=== PATIENT | female | born 1975 | race Two or more races ===

== ENCOUNTER 2017-11-25 06:56 | Emergency (ER) | payer MEDICAID ==
[~2017-11-25] VITALS: Ht 154.9 cm; Wt 77.1 kg
[2017-11-25 07:45] VITALS: BP 133/71
[2017-11-25] MEDS ORDERED: KETOROLAC TROMETH 60MG/2ML VIAL IM ONE (08:30)
[2017-11-25] MEDS ORDERED: cefTRIAXone SOD 1,000 MG VL IM ONE (08:30)
== END 2017-11-25 09:04 | disposition home or self-care (01) ==
LOC: ER 06:56
DX: L03.317 Cellulitis of buttock (principal); E11.9 Type 2 diabetes mellitus without complications; F17.210 Nicotine dependence, cigarettes, uncomplicated; Z88.6 Allergy status to analgesic agent
CPT/HCPCS: 96372; 99284; J0696; J1885

== ENCOUNTER 2017-11-28 02:34 | Inpatient (IN) | payer MEDICAID ==
[~2017-11-28] VITALS: Ht 154.9 cm; Wt 74.0 kg
[2017-11-28] MEDS ORDERED: SODIUM CHLORIDE 0.9% 1,000 ML IV ONE ×2 (04:15→06:00)
[2017-11-28 04:41] LABS: Basophils # (auto) 0.1 uL; Eosinophils # (auto) 0.1 uL; Hematocrit 32.2 % (36.0-46.0); Hemoglobin 10.2 g/dL (12.2-16.2); Monocytes # (auto) 0.7 uL; Red Blood Cells 4.32 10^6/uL (4.0-5.20); White Blood Cell 9.2 10^3/uL (4.4-10.8)
[2017-11-28 04:42] LABS: Basophils % (auto) 1.4 % (0.0-2.0); Eosinophils % (auto) 1.3 % (0.0-7.0); Lymphocytes # (auto) 1.9 uL; Lymphocytes % (auto) 21.2 % (10.0-50.0); Mean Corpuscular Hemoglobin 23.7 pg (28.0-32.0); Mean Corpuscular Hgb Conc. 31.8 g/dL (32.0-36.0); Mean Corpuscular Volume 74.5 fL (80.0-100.0); Monocytes % (auto) 7.7 % (0.0-12.0); Neutrophils # (auto) 6.3 uL; Neutrophils % (auto) 68.4 % (37.0-80.0); Platelet Count (auto) 465 10^3/uL (140-450); Red Cell Distribution Width 17.7 % (11.8-14.3)
[2017-11-28 04:56] LABS: Albumin 3.1 g/dL (3.4-5.0); BUN/Creatinine Ratio 11.3; Calcium 8.6 mg/dL (8.5-10.1); Potassium 3.6 mmol/L (3.5-5.1)
[2017-11-28 04:58] LABS: Bilirubin, Total 0.3 mg/dL (0.2-1.0); Total Protein 8.2 g/dL (6.4-8.2)
[2017-11-28] MEDS ORDERED: cefTRIAXone SOD 1,000 MG VL ONE (05:52)
[2017-11-28] MEDS ORDERED: cefTRIAXone 1GM/10ml IVPUSH 10 ML IV ONE (06:00)
[2017-11-28] MEDS ORDERED: KETOROLAC TROMETH 30 MG/ML 1ML VIAL IV ONE (06:00)
[2017-11-28] MEDS ORDERED: ONDANSETRON HCL 4 MG/2 ML VIAL IV PRN (06:15)
[2017-11-28] MEDS ORDERED: TEMAZEPAM 15 MG CAP PO PRN (06:15)
[2017-11-28] MEDS ORDERED: ACETAMINOPHEN 325 MG TAB PO PRN (06:15)
[2017-11-28] MEDS ORDERED: DEXTROSE (50%) 50ML SYRG IV PRN (06:15)
[2017-11-28] MEDS: CLINDAMYCIN 600MG IV 50 ML IV SCH ×3 (07:20→21:53)
[2017-11-28] MEDS: SODIUM CHLORIDE 0.9% 1,000 ML IV SCH ×2 (07:29→21:46)
[2017-11-28 09:00] VITALS: BP 120/66
[2017-11-28] MEDS ORDERED: GLIP-116 PO (09:54)
[2017-11-28] MEDS ORDERED: METF-370 PO (09:54)
[2017-11-28] MEDS: FAMOTIDINE 20 MG TAB PO SCH ×2 (10:27→21:54)
[2017-11-28] MEDS: KETOROLAC TROMETH 30 MG/ML 1ML VIAL IV PRN (10:28)
[2017-11-28] MEDS: ACCU-CHEK COMFORT CURVE STRIP VI SCH ×2 (12:00→18:00)
[2017-11-28 12:48] VITALS: BP 113/71
[2017-11-28] MEDS: InsuLIN REG 1unit/0.01ml Soln (100units/ml) SC SCH ×2 (12:59→18:00)
[2017-11-28] MEDS: HYDROcodone-ACET 10/325MG TAB PO PRN ×2 (15:16→21:54)
[2017-11-28 17:00] VITALS: BP 120/68
[2017-11-28] MEDS: PIPERACILLIN-TAZOB 3.375GM 50 ML IV SCH (18:52)
[2017-11-28 22:00] VITALS: BP 112/67
[2017-11-29] MEDS: PIPERACILLIN-TAZOB 3.375GM 50 ML IV SCH ×4 (00:28→18:04)
[2017-11-29] MEDS: InsuLIN REG 1unit/0.01ml Soln (100units/ml) SC SCH ×4 (00:46→18:04)
[2017-11-29] MEDS: CLINDAMYCIN 600MG IV 50 ML IV SCH ×2 (05:25→14:23)
[2017-11-29 05:27] VITALS: BP 124/73
[2017-11-29] MEDS: HYDROcodone-ACET 10/325MG TAB PO PRN ×3 (05:30→16:11)
[2017-11-29] MEDS: ACCU-CHEK COMFORT CURVE STRIP VI SCH ×4 (05:38→18:05)
[2017-11-29 06:59] LABS: Basophils # (auto) 0.1 uL; Basophils % (auto) 1.2 % (0.0-2.0); Eosinophils # (auto) 0.2 uL; Eosinophils % (auto) 2.6 % (0.0-7.0); Hematocrit 26.7 % (36.0-46.0); Hemoglobin 8.6 g/dL (12.2-16.2); Lymphocytes # (auto) 1.8 uL; Lymphocytes % (auto) 29.2 % (10.0-50.0); Mean Corpuscular Hemoglobin 24.2 pg (28.0-32.0); Mean Corpuscular Hgb Conc. 32.1 g/dL (32.0-36.0); Mean Corpuscular Volume 75.4 fL (80.0-100.0); Monocytes # (auto) 0.5 uL; Monocytes % (auto) 7.6 % (0.0-12.0); Neutrophils # (auto) 3.8 uL; Neutrophils % (auto) 59.4 % (37.0-80.0); Nucleated Red Blood Cells % 0.1 %; Platelet Count (auto) 396 10^3/uL (140-450); Red Blood Cells 3.54 10^6/uL (4.0-5.20); Red Cell Distribution Width 17.9 % (11.8-14.3); White Blood Cell 6.3 10^3/uL (4.4-10.8)
[2017-11-29 07:16] LABS: Potassium 3.9 mmol/L (3.5-5.1)
[2017-11-29 07:23] LABS: Albumin 2.4 g/dL (3.4-5.0); BUN/Creatinine Ratio 24.4; Calcium 8.3 mg/dL (8.5-10.1)
[2017-11-29 07:26] LABS: Bilirubin, Total 0.2 mg/dL (0.2-1.0); Total Protein 6.7 g/dL (6.4-8.2)
[2017-11-29 09:00] VITALS: BP 111/66
[2017-11-29] MEDS ORDERED: cefTRIAXone 1GM/10ml IVPUSH 10 ML IV SCH (09:00)
[2017-11-29] MEDS: FAMOTIDINE 20 MG TAB PO SCH (09:41)
[2017-11-29] MEDS: SODIUM CHLORIDE 0.9% 1,000 ML IV SCH (09:42)
[2017-11-29] MEDS: KETOROLAC TROMETH 30 MG/ML 1ML VIAL IV PRN (12:35)
[2017-11-29 13:00] VITALS: BP 128/81
[2017-11-29 17:00] VITALS: BP 104/62
== END 2017-11-29 22:22 | disposition home or self-care (01) | DRG 383 ==
LOC: ER 02:36 → OVERFLOW 02:37 → WEST WING 08:22
PROVIDERS: ADMIT Nurse Practitioner; ATTEND Internal Medicine
DX: L02.31 Cutaneous abscess of buttock (principal); E11.65 Type 2 diabetes mellitus with hyperglycemia; L03.317 Cellulitis of buttock; F17.210 Nicotine dependence, cigarettes, uncomplicated; W57.XXXA Bitten or stung by nonvenomous insect and other nonvenomous arthropods, initial encounter; Z82.3 Family history of stroke; Z82.49 Family history of ischemic heart disease and other diseases of the circulatory system; Z83.3 Family history of diabetes mellitus; Z91.14 Patient's other noncompliance with medication regimen; Z88.5 Allergy status to narcotic agent; Z90.49 Acquired absence of other specified parts of digestive tract; Z80.9 Family history of malignant neoplasm, unspecified; Z72.89 Other problems related to lifestyle
CPT/HCPCS: 36415; 76856; 80053; 82962; 83036; 83605; 85025; 87077; 87186; 87205; 96361; 96374; 96375; J0696; J1815; J1885; J2543; J3490

== ENCOUNTER 2019-01-29 19:42 | Emergency (ER) | payer MEDICAID ==
[~2019-01-29] VITALS: Ht 154.9 cm; Wt 68.0 kg
[~2019-01-29 19:42] MED LIST: GLIP-116 PO; METF-370 PO
[2019-01-29 21:27] LABS: Basophils # (auto) 0 uL; Basophils % (auto) 0.4 % (0.0-2.0); Eosinophils # (auto) 0 uL; Hemoglobin 10.6 g/dL (12.2-16.2); Lymphocytes # (auto) 1.9 uL; Mean Corpuscular Volume 73.7 fL (80.0-100.0)
[2019-01-29 21:29] LABS: Eosinophils % (auto) 0.2 % (0.0-7.0); Hematocrit 33.1 % (36.0-46.0); Lymphocytes % (auto) 21.8 % (10.0-50.0); Mean Corpuscular Hemoglobin 23.7 pg (28.0-32.0); Mean Corpuscular Hgb Conc. 32.1 g/dL (32.0-36.0); Monocytes # (auto) 0.7 uL; Neutrophils % (auto) 69.6 % (37.0-80.0); Platelet Count (auto) 402 10^3/uL (140-450); Red Blood Cells 4.49 10^6/uL (4.0-5.20); Red Cell Distribution Width 17.2 % (11.8-14.3); White Blood Cell 8.7 10^3/uL (4.4-10.8)
[2019-01-29 21:44] LABS: Albumin 3.5 g/dL (3.4-5.0); Calcium 8.8 mg/dL (8.5-10.1); Potassium 3.2 mmol/L (3.5-5.1)
[2019-01-29 21:50] LABS: BUN/Creatinine Ratio 14.9; Bilirubin, Total 0.6 mg/dL (0.2-1.0); Total Protein 7.7 g/dL (6.4-8.2)
[2019-01-30] MEDS ORDERED: InsuLIN REG 1unit/0.01ml Soln (100units/ml) IV ONE (00:15)
[2019-01-30] MEDS ORDERED: PHENAZOPYRIDINE HCL 100 MG TAB PO ONE (00:15)
[2019-01-30] MEDS ORDERED: SODIUM CHLORIDE 0.9% 1,000 ML IV ONE (00:15)
[2019-01-30 03:31] LABS: Urine Bacteria MANY /hpf (None Seen); Urine Blood 1+ /uL (Negative); Urine Mucus FEW (None Seen); Urine Specific Gravity 1.023 (1.001-1.035); Urine WBC 19 /hpf (0 - 5)
[2019-01-30 04:47] VITALS: BP 143/73
[2019-01-30] MEDS ORDERED: cefTRIAXone 1GM/50ML D5W 50 ML IV ONE (05:15)
== END 2019-01-30 06:07 | disposition home or self-care (01) ==
LOC: ER 19:42 → EDBD 19:42 → ER 01-30 06:07
DX: N39.0 Urinary tract infection, site not specified (principal); E11.65 Type 2 diabetes mellitus with hyperglycemia; F17.210 Nicotine dependence, cigarettes, uncomplicated; F12.10 Cannabis abuse, uncomplicated; Z88.6 Allergy status to analgesic agent; Z90.49 Acquired absence of other specified parts of digestive tract
CPT/HCPCS: 36415; 80053; 81001; 82962; 85025; 96361; 96365; 96375; 99283; J0696; J1815; J7030

== ENCOUNTER 2019-03-19 21:46 | Emergency (ER) | payer MEDICAID ==
[~2019-03-19] VITALS: Ht 154.9 cm; Wt 77.1 kg
[2019-03-19 23:28] LABS: Basophils # (auto) 0 uL; Mean Corpuscular Hemoglobin 22.8 pg (28.0-32.0); Neutrophils # (auto) 3.7 uL; Nucleated Red Blood Cells % 0.1 %; Red Cell Distribution Width 17.4 % (11.8-14.3)
[2019-03-19 23:30] LABS: Basophils % (auto) 0.6 % (0.0-2.0); Eosinophils # (auto) 0.1 uL; Eosinophils % (auto) 2.2 % (0.0-7.0); Hematocrit 31.3 % (36.0-46.0); Hemoglobin 9.7 g/dL (12.2-16.2); Lymphocytes # (auto) 2.4 uL; Lymphocytes % (auto) 35.2 % (10.0-50.0); Mean Corpuscular Volume 73.6 fL (80.0-100.0); Monocytes # (auto) 0.5 uL; Red Blood Cells 4.25 10^6/uL (4.0-5.20); White Blood Cell 6.7 10^3/uL (4.4-10.8)
[2019-03-19 23:31] LABS: Urine Bacteria FEW /hpf (None Seen); Urine Blood Negative /uL (Negative); Urine Specific Gravity 1.028 (1.001-1.035); Urine WBC 10 /hpf (0 - 5)
[2019-03-19 23:45] LABS: Albumin 3.3 g/dL (3.4-5.0); Anion Gap 7 (5-15); BUN/Creatinine Ratio 14.3; Blood Urea Nitrogen 10 mg/dL (7-18); Calcium 8.3 mg/dL (8.5-10.1); Carbon Dioxide 26 mmol/L (21-32); Chloride 101 mmol/L (98-107); GFR African American 117 mL/min; GFR Non-African American 97 mL/min; Sodium 134 mmol/L (136-145)
[2019-03-19 23:53] LABS: Alanine Aminotransferase 21 U/L (13-56); Alkaline Phosphatase 93 U/L (45-117); Aspartate Aminotransferase 9 U/L (15-37); Bilirubin, Total 0.2 mg/dL (0.2-1.0); Total Protein 7.3 g/dL (6.4-8.2)
[2019-03-19 23:59] LABS: Glucose 404 mg/dL (74-106)
[2019-03-20 00:12] LABS: Platelet Count (auto) 467 10^3/uL (140-450)
[2019-03-20 00:21] LABS: Amylase 51 U/L (25-115); Lipase 226 U/L (73-393)
[2019-03-20] MEDS ORDERED: InsuLIN REG 1unit/0.01ml Soln (100units/ml) IV ONE (00:30)
[2019-03-20 02:08] VITALS: BP 112/60
== END 2019-03-20 02:20 | disposition home or self-care (01) ==
LOC: ER 21:51
DX: E86.0 Dehydration (principal); E11.65 Type 2 diabetes mellitus with hyperglycemia; F17.210 Nicotine dependence, cigarettes, uncomplicated; Z90.49 Acquired absence of other specified parts of digestive tract; Z88.5 Allergy status to narcotic agent; Z79.84 Long term (current) use of oral hypoglycemic drugs; Z79.899 Other long term (current) drug therapy
CPT/HCPCS: 36415; 80053; 81001; 81025; 82010; 82150; 82962; 83605; 83690; 83880; 84484; 85025; 94761; 96374; 99283; J1815

== ENCOUNTER 2019-07-11 16:02 | Inpatient (IN) | payer MEDICAID ==
[~2019-07-11] VITALS: Ht 157.5 cm; Wt 72.9 kg
[~2019-07-11 16:02] MED LIST changes: -GLIP-116 PO; +GLIP10TA9 PO
[2019-07-11 16:48] LABS: Albumin 3.3 g/dL (3.4-5.0); Anion Gap 18 (5-15); Blood Urea Nitrogen 15 mg/dL (7-18); Calcium 7.9 mg/dL (8.5-10.1); Carbon Dioxide 12 mmol/L (21-32); Chloride 98 mmol/L (98-107); Potassium 4.1 mmol/L (3.5-5.1); Sodium 128 mmol/L (136-145)
[2019-07-11] MEDS ORDERED: ONDANSETRON HCL 4 MG/2 ML VIAL ONE (16:48)
[2019-07-11 16:58] LABS: Alanine Aminotransferase 27 U/L (13-56); Alkaline Phosphatase 114 U/L (45-117); Aspartate Aminotransferase 28 U/L (15-37); BUN/Creatinine Ratio 14.4; Bilirubin, Total 0.1 mg/dL (0.2-1.0); GFR African American 74 mL/min; GFR Non-African American 61 mL/min; Total Protein 7.5 g/dL (6.4-8.2)
[2019-07-11] MEDS ORDERED: ONDANSETRON HCL 4 MG/2 ML VIAL IV ONE ×2 (17:00→18:00)
[2019-07-11] MEDS ORDERED: SODIUM CHLORIDE 0.9% 1,000 ML IV ONE ×2 (17:00→21:15)
[2019-07-11 17:07] LABS: Basophils # (auto) 0 uL; Eosinophils # (auto) 0.1 uL; Monocytes # (auto) 0.3 uL
[2019-07-11 17:09] LABS: Basophils % (auto) 0.4 % (0.0-2.0); Glucose 834 mg/dL (74-106); Hemoglobin 11.3 g/dL (12.2-16.2); Lymphocytes # (auto) 1.5 uL; Lymphocytes % (auto) 23.4 % (10.0-50.0); Mean Corpuscular Hemoglobin 23.8 pg (28.0-32.0); Mean Corpuscular Hgb Conc. 29.8 g/dL (32.0-36.0); Mean Corpuscular Volume 79.8 fL (80.0-100.0); Monocytes % (auto) 4.6 % (0.0-12.0); Neutrophils # (auto) 4.4 uL; Neutrophils % (auto) 70.6 % (37.0-80.0); Nucleated Red Blood Cells % 0.1 %; Platelet Count (auto) 438 10^3/uL (140-450); Red Blood Cells 4.76 10^6/uL (4.0-5.20); Red Cell Distribution Width 18.4 % (11.8-14.3); White Blood Cell 6.2 10^3/uL (4.4-10.8)
[2019-07-11] MEDS ORDERED: InsuLIN R (HUMAN) 100 UNITS in SODIUM CHL 0.9% 99 ML IV SCH (17:14)
[2019-07-11] MEDS ORDERED: DEXTROSE (50%) 50ML SYRG IV PRN ×2 (17:15→21:15)
[2019-07-11 17:34] LABS: Magnesium 2.4 mg/dL (1.6-2.6); Phosphorus 2.3 mg/dL (2.5-4.90)
[2019-07-11] MEDS: SODIUM CHLORIDE 0.9% 1,000 ML IV SCH ×2 (17:38→21:09)
[2019-07-11] MEDS ORDERED: KETOROLAC TROMETH 30 MG/ML 1ML VIAL IV ONE (18:00)
[2019-07-11 18:04] LABS: Urine Bacteria FEW /hpf (None Seen); Urine Blood Negative /uL (Negative); Urine Mucus FEW (None Seen); Urine Specific Gravity 1.025 (1.001-1.035); Urine WBC 2 /hpf (0 - 5)
[2019-07-11] MEDS: ACCU-CHEK COMFORT CURVE STRIP VI SCH ×3 (18:11→21:18)
[2019-07-11 18:58] LABS: Amphetamine Screen, Urine POSITIVE (NEGATIVE); Barbiturate Scree,Urine NEGATIVE (NEGATIVE); Benzodiazephine Screen, Urine NEGATIVE (NEGATIVE); Cannabinoid Screen, Urine NEGATIVE (NEGATIVE); Cocaine Screen, Urine NEGATIVE (NEGATIVE); Opiate Scree,Urine NEGATIVE (NEGATIVE); Phencyclidine Screen, Urine NEGATIVE (NEGATIVE)
[2019-07-11] MEDS ORDERED: SODIUM CHLORIDE 0.9% 1,000 ML IV SCH ×2 (21:14→23:14)
[2019-07-11] MEDS ORDERED: TEMAZEPAM 15 MG CAP PO PRN (21:15)
[2019-07-11] MEDS ORDERED: ONDANSETRON HCL 4 MG/2 ML VIAL IV PRN (21:15)
[2019-07-11] MEDS ORDERED: MORPHINE SULF INJ 2 MG/ML SYRINGE 1ML IV PRN (22:00)
[2019-07-11 22:07] LABS: BUN/Creatinine Ratio 33.3; Calcium 7.2 mg/dL (8.5-10.1); Potassium 3.6 mmol/L (3.5-5.1)
[2019-07-11] MEDS: FAMOTIDINE 20 MG TAB PO SCH (22:19)
[2019-07-11] MEDS ORDERED: CALCIUM GLUC 4.65meq/50ml D5AE 50 ML IV ONE (22:30)
[2019-07-11] MEDS: NITROGLYCERIN 0.4 MG SL TAB SL PRN ×2 (23:03→23:11)
[2019-07-11 23:45] VITALS: BP 132/75
--- NOTE | 2019-07-11 23:45 | NUR ---
Telemetry admit from ER NIYA GAMEZ admitted to Telemetry unit after SBAR received. Patient oriented to Judith Moss, primary RN, unit, room, bed, and unit policies regarding patient care and visiting hours. Patient now on continuous telemetry monitoring, tele box # 38 and telemetry reading on arrival to unit is 82. Patient placed on bedside oxygen, weighed by bedscale and encouraged to call if they need something. All questions and concerns addressed, patient verbalized understanding. Note:
[2019-07-12] MEDS: SODIUM CHLORIDE 0.9% 1,000 ML IV SCH ×2 (00:11→07:15)
[2019-07-12] MEDS: InsuLIN REG 1unit/0.01ml Soln (100units/ml) SC SCH ×6 (00:18→21:50)
[2019-07-12] MEDS: ACCU-CHEK COMFORT CURVE STRIP VI SCH ×6 (00:18→21:50)
[2019-07-12 04:49] VITALS: BP 134/72
[2019-07-12 05:42] LABS: Basophils # (auto) 0 uL; Basophils % (auto) 0.4 % (0.0-2.0); Eosinophils # (auto) 0.1 uL; Hemoglobin 9.4 g/dL (12.2-16.2); Monocytes # (auto) 0.5 uL
[2019-07-12 05:45] LABS: Eosinophils % (auto) 1.1 % (0.0-7.0); Hematocrit 29.4 % (36.0-46.0); Lymphocytes # (auto) 2.3 uL; Mean Corpuscular Hemoglobin 24.4 pg (28.0-32.0); Mean Corpuscular Hgb Conc. 32.1 g/dL (32.0-36.0); Mean Corpuscular Volume 76.2 fL (80.0-100.0); Monocytes % (auto) 7.7 % (0.0-12.0); Neutrophils % (auto) 57.8 % (37.0-80.0); Nucleated Red Blood Cells % 0.1 %; Platelet Count (auto) 325 10^3/uL (140-450); Red Blood Cells 3.86 10^6/uL (4.0-5.20); Red Cell Distribution Width 17.7 % (11.8-14.3)
[2019-07-12 05:57] LABS: Albumin 2.6 g/dL (3.4-5.0); Calcium 7.1 mg/dL (8.5-10.1); Potassium 3.8 mmol/L (3.5-5.1)
[2019-07-12 06:01] LABS: BUN/Creatinine Ratio 30.2; Bilirubin, Total 0.2 mg/dL (0.2-1.0); Total Protein 5.7 g/dL (6.4-8.2)
[2019-07-12] MEDS: ACETAMINOPHEN 325 MG TAB PO PRN ×2 (06:48→21:38)
--- NOTE | 2019-07-12 07:52 | NUR ---
Opening Shift Note Assumed care of patient, awake and alert. No S/S of distress/SOB or pain. Instructed on POC and to call for assist PRN, will continue to monitor for changes Q1hr and PRN.
[2019-07-12 08:49] VITALS: BP 132/68
[2019-07-12] MEDS: FAMOTIDINE 20 MG TAB PO SCH ×2 (10:48→21:37)
[2019-07-12 11:31] LABS: Calcium 7.6 mg/dL (8.5-10.1); Potassium 3.7 mmol/L (3.5-5.1)
[2019-07-12 11:33] LABS: BUN/Creatinine Ratio 22.5
[2019-07-12 12:55] VITALS: BP 139/75
[2019-07-12] MEDS ORDERED: chlordiazePOXIDE HCL 5 MG CAP PO PRN (14:15)
[2019-07-12] MEDS ORDERED: FOLIC ACID 1 MG TAB PO ONE (14:15)
[2019-07-12] MEDS ORDERED: THIAMINE HCL 100 MG TAB PO ONE (14:15)
[2019-07-12] MEDS ORDERED: DEXTROSE (50%) 50ML SYRG IV PRN (14:15)
[2019-07-12] MEDS ORDERED: ASPirin-EC 81 mg tab PO ONE (14:15)
[2019-07-12 17:00] VITALS: BP 131/67
--- NOTE | 2019-07-12 17:25 | NUR ---
SPOKE WITH DOCTOR CAROLINE, NEW ORDERS RECEIVED, SEE EMR FOR ORDERS.
--- NOTE | 2019-07-12 20:30 | NUR ---
RECEIVE IN BED WATCHING TV IS AWARE SHE WILL BE NPO AFTER MIDNIGHT FOR STRESS TEST
[2019-07-12] MEDS: METOPROLOL TARTRATE 25 MG TAB PO SCH (21:48)
[2019-07-12] MEDS: INSULIN LANTUS (GLARGINE) 1 /0.01ml (100units/ml) SC SCH (21:50)
[2019-07-12 22:00] VITALS: BP 150/64
--- NOTE | 2019-07-13 04:50 | NUR ---
UP WALKING IN [place] IS ANXIOUS BLOOD SUGAR CHECKED
[2019-07-13 05:00] VITALS: BP 162/73
[2019-07-13] MEDS: ACCU-CHEK COMFORT CURVE STRIP VI SCH ×4 (06:37→22:50)
[2019-07-13] MEDS: InsuLIN REG 1unit/0.01ml Soln (100units/ml) SC SCH ×4 (06:47→22:59)
[2019-07-13 07:02] LABS: INR < 0.93 (0.9-1.15); Partial Thromboplastin Time 26.6 sec (23.64-32.05)
[2019-07-13 07:03] LABS: Basophils # (auto) 0 uL; Eosinophils # (auto) 0.1 uL; Eosinophils % (auto) 1.4 % (0.0-7.0); Hemoglobin 10.1 g/dL (12.2-16.2); Mean Corpuscular Hemoglobin 24.2 pg (28.0-32.0); Neutrophils # (auto) 3.7 uL; Nucleated Red Blood Cells % 0.1 %; Red Blood Cells 4.17 10^6/uL (4.0-5.20); White Blood Cell 6.3 10^3/uL (4.4-10.8)
[2019-07-13 07:05] LABS: Basophils % (auto) 0.4 % (0.0-2.0); Hematocrit 31.8 % (36.0-46.0); Lymphocytes # (auto) 2.1 uL; Lymphocytes % (auto) 32.7 % (10.0-50.0); Mean Corpuscular Hgb Conc. 31.7 g/dL (32.0-36.0); Mean Corpuscular Volume 76.3 fL (80.0-100.0); Monocytes # (auto) 0.4 uL; Monocytes % (auto) 6.7 % (0.0-12.0); Neutrophils % (auto) 58.8 % (37.0-80.0); Platelet Count (auto) 374 10^3/uL (140-450); Red Cell Distribution Width 18.4 % (11.8-14.3)
[2019-07-13 07:14] LABS: Cholesterol 178 mg/dL (< 200); HDL Cholesterol 50 mg/dL (40-59); LDL Cholesterol 105 mg/dL (< 100); Triglycerides 123 mg/dL (< 150)
[2019-07-13 07:21] LABS: Calcium 8.4 mg/dL (8.5-10.1); Potassium 3.9 mmol/L (3.5-5.1)
[2019-07-13 07:25] LABS: BUN/Creatinine Ratio 19.6; Bilirubin, Total 0.2 mg/dL (0.2-1.0); Total Protein 6.5 g/dL (6.4-8.2)
[2019-07-13] MEDS ORDERED: ADENOSINE 66 MG in GIVE UN-DILUTED 0 ML IV STA (08:21)
[2019-07-13] MEDS ORDERED: GLIP10TA9 PO (09:04)
[2019-07-13] MEDS ORDERED: METF-372 PO (09:04)
[2019-07-13] MEDS ORDERED: GABA300C10 PO (09:05)
[2019-07-13 09:32] VITALS: BP 134/66
[2019-07-13] MEDS: ASPirin-EC 81 mg tab PO SCH (10:00)
[2019-07-13] MEDS: FAMOTIDINE 20 MG TAB PO SCH ×2 (10:00→22:50)
[2019-07-13] MEDS: THIAMINE HCL 100 MG TAB PO SCH (10:00)
[2019-07-13] MEDS: METOPROLOL TARTRATE 25 MG TAB PO SCH ×2 (10:00→10:55)
[2019-07-13] MEDS: GABAPENTIN 300 MG CAP PO SCH ×2 (10:00→22:50)
[2019-07-13] MEDS: FOLIC ACID 1 MG TAB PO SCH (10:00)
[2019-07-13 13:00] VITALS: BP 135/71
[2019-07-13] MEDS ORDERED: MET25T PO (14:26)
[2019-07-13 16:56] VITALS: BP 134/63
[2019-07-13] MEDS: NITROGLYCERIN 0.4 MG SL TAB SL PRN ×3 (17:40→17:53)
--- NOTE | 2019-07-13 18:00 | NUR ---
Chest pain Patient c/o chest pain 7/10 placed on 2LNC V/S 141/57 heart rate 72 99%. 3 doses nitro given per protocol (see emar) morphine give x1 per protocol (see emar ) Patient stated relief V/S 120/58 B/P 81hr 97% O2 sat 99 on 2LNC ekg performed and read and signed by doctor Diana. No new orders received. EKG placed in patients chart. Will continue to monitor.
--- NOTE | 2019-07-13 19:10 | NUR ---
Opening Shift Note Assumed care of patient, awake and alert. No S/S of distress/SOB or pain. Safety measures in place bed in lowest position, side rails x2 up, and call light within reach Instructed on POC and to call for assist PRN, will continue to monitor for changes Q1hr and PRN.
[2019-07-13 22:00] VITALS: BP 112/50
[2019-07-13] MEDS: INSULIN LANTUS (GLARGINE) 1 /0.01ml (100units/ml) SC SCH (22:50)
[2019-07-14 05:00] VITALS: BP 112/54
[2019-07-14] MEDS: ACCU-CHEK COMFORT CURVE STRIP VI SCH ×4 (06:30→22:08)
[2019-07-14] MEDS: InsuLIN REG 1unit/0.01ml Soln (100units/ml) SC SCH ×4 (06:36→22:20)
--- NOTE | 2019-07-14 08:00 | NUR ---
Opening Shift Note Assumed care of patient, resting with eyes closed, easy to wake with sound. No S/S of distress/SOB or pain. Insructed on POC and to callfor assist PRN, will continue to monitor for changes Q1hr and PRN.
[2019-07-14 09:00] VITALS: BP 111/57
[2019-07-14] MEDS: THIAMINE HCL 100 MG TAB PO SCH (09:34)
[2019-07-14] MEDS: ASPirin-EC 81 mg tab PO SCH (09:34)
[2019-07-14] MEDS: FAMOTIDINE 20 MG TAB PO SCH ×2 (09:34→22:07)
[2019-07-14] MEDS: FOLIC ACID 1 MG TAB PO SCH (09:34)
[2019-07-14] MEDS: GABAPENTIN 300 MG CAP PO SCH ×2 (09:34→22:07)
[2019-07-14] MEDS: METOPROLOL TARTRATE 25 MG TAB PO SCH ×2 (09:38→22:07)
[2019-07-14 13:00] VITALS: BP 137/77
--- NOTE | 2019-07-14 16:04 | NUR ---
Pending DC/Cardio clearance No ECHO results in reports at this time. This nurse was informed that Dr. Ortiz is not professor of public administration today. Paged Dr. Guardado (at [phone]) who is professor of public administration for cardio today to inquire about cardio clearance for patient to be discharged. Have not heard back at this time. Waiting for results of ECHO and stress test so patient can be cleared for discharge.
[2019-07-14] MEDS: ACETAMINOPHEN 325 MG TAB PO PRN (16:42)
--- NOTE | 2019-07-14 17:00 | NUR ---
Smoking AMA form signed CORPORATE RECEPTIONIST saw patient walking around and believed she went outside as she smelled cigarette smoke on the patient. This nurse went into the patient's room and also thought she smelled like cigarette smoke. Asked patient if she had gone outside and she said "Yes, I went outside to get fresh air." Explained smoking AMA form explained risk of going outside; patient signed form and it was placed in the front of the chart.
[2019-07-14 17:06] VITALS: BP 140/74
--- NOTE | 2019-07-14 19:25 | NUR ---
Opening Shift Note Assumed care of patient, awake and alert. No S/S of distress/SOB or pain. Safety measures in place bed in lowest position, side rails x2 up, and call light within reach. Instructed on POC and to call for assist PRN, will continue to monitor for changes Q1hr and PRN.
[2019-07-14 22:00] VITALS: BP 123/51
[2019-07-14] MEDS: INSULIN LANTUS (GLARGINE) 1 /0.01ml (100units/ml) SC SCH (22:08)
--- NOTE | 2019-07-15 04:45 | NUR ---
NIYA GAMEZ states that, "I want to leave now". Patient encouraged to stay and made aware of potential discharge pending results of stress test. Patient is insistent on leaving, repeating, "I don't want to stay. I've been here a long time already." Patient is alert and oriented x4. Charge nurse Nataliya, code enforcement supervisor, and Kalyani Tellez HOSIERY LOOPER notified of patient's wishes. Patient advised of the risks and benefits of leaving AMA. Patient verbalized understanding. Patient removed her e learning coordinator, e learning coordinator returned to [facility]. IV DC'd with sterile technique, catheter fully intact. Pressure dressing applied to site. Patient tolerated procedure well. Patient informed to return to the ER if symptoms do not improve or worsen. No s/s of distress noted on departure.
[2019-07-15 05:00] VITALS: BP 122/68
== END 2019-07-15 04:45 | disposition left against medical advice (07) | DRG 420 ==
LOC: ER 16:02 → TELE 16:04 → TELE-CENTR 23:35
PROVIDERS: ADMIT Nurse Practitioner; ATTEND Internal Medicine
DX: E11.10 Type 2 diabetes mellitus with ketoacidosis without coma (principal); N17.0 Acute kidney failure with tubular necrosis; E66.9 Obesity, unspecified; E86.0 Dehydration; F15.10 Other stimulant abuse, uncomplicated; E44.0 Moderate protein-calorie malnutrition; E87.1 Hypo-osmolality and hyponatremia; F17.210 Nicotine dependence, cigarettes, uncomplicated; F12.90 Cannabis use, unspecified, uncomplicated; F10.10 Alcohol abuse, uncomplicated; E11.40 Type 2 diabetes mellitus with diabetic neuropathy, unspecified; I10 Essential (primary) hypertension; Y90.9 Presence of alcohol in blood, level not specified; Z53.21 Procedure and treatment not carried out due to patient leaving prior to being seen by health care provider; Z91.14 Patient's other noncompliance with medication regimen; Z88.5 Allergy status to narcotic agent; Z90.49 Acquired absence of other specified parts of digestive tract; Z83.3 Family history of diabetes mellitus; Z82.49 Family history of ischemic heart disease and other diseases of the circulatory system; Z82.3 Family history of stroke; Z68.29 Body mass index [BMI] 29.0-29.9, adult; Z79.84 Long term (current) use of oral hypoglycemic drugs; Z71.41 Alcohol abuse counseling and surveillance of alcoholic; Z71.51 Drug abuse counseling and surveillance of drug abuser; Z79.899 Other long term (current) drug therapy
CPT/HCPCS: 36415; 36600; 71045; 78452; 80048; 80053; 80061; 80307; 81001; 82010; 82805; 82962; 83036; 83605; 83735; 83930; 84100; 84443; 84484; 85025; 85610; 85730; 87081; 93005; 93017; 93306; 96361; 96365; 96367; 96375; 99291; G0378; J0153; J0610; J1815; J1885; J2405

== ENCOUNTER 2022-01-29 19:43 | Inpatient (IN) | payer MEDICAID ==
[~2022-01-29] VITALS: Ht 165.1 cm; Wt 81.1 kg
[~2022-01-29 19:43] MED LIST changes: +GABA300C10 PO; +MET25T PO; +METF-372 PO
[2022-01-29 21:11] LABS: Basophils # (auto) 0.1 10 ^3/uL (0-0.2); Basophils % (auto) 0.5 % (0.0-2.0); Eosinophils # (auto) 0 10 ^3/uL (0-0.8); Hematocrit 29.4 % (36.0-46.0); Hemoglobin 9.4 g/dL (12.2-16.2); Lymphocytes # (auto) 0.3 10 ^3/uL (0.4-5.4); Lymphocytes % (auto) 2.5 % (10.0-50.0); Mean Corpuscular Hemoglobin 24.7 pg (28.0-32.0); Mean Corpuscular Volume 77.3 fL (80.0-100.0); Monocytes # (auto) 0.3 10 ^3/uL (0-1.3); Monocytes % (auto) 2.4 % (0.0-12.0); Neutrophils # (auto) 11.7 10 ^3/uL (1.6-8.6); Neutrophils % (auto) 94.6 % (37.0-80.0); Nucleated Red Blood Cells % 0.1 %; Red Blood Cells 3.81 10^6/uL (4.0-5.20); Red Cell Distribution Width 17.1 % (11.8-14.3); White Blood Cell 12.4 10^3/uL (4.4-10.8)
[2022-01-29] MEDS ORDERED: fentaNYL CITRATE 100 MCG/2 ML VL IV ONE (21:15)
[2022-01-29 21:27] LABS: Albumin 2.1 g/dL (3.4-5.0); Calcium 8.2 mg/dL (8.5-10.1); Potassium 3.5 mmol/L (3.5-5.1)
[2022-01-29 21:30] LABS: Bilirubin, Total 0.5 mg/dL (0.2-1.0); Total Protein 6.5 g/dL (6.4-8.2)
[2022-01-29 21:40] LABS: BUN/Creatinine Ratio 14.2
[2022-01-29] MEDS ORDERED: cefTRIAXone 1GM/50ML D5W 50 ML IV ONE (21:45)
[2022-01-29] MEDS ORDERED: HYDROmorphone HCL 2 MG/ML VL/or syr IV ONE (21:45)
[2022-01-29] MEDS ORDERED: ONDANSETRON HCL 4 MG/2 ML VIAL IV PRN (22:00)
[2022-01-29] MEDS ORDERED: SODIUM CHLORIDE 0.9% 1,000 ML IV SCH (22:00)
[2022-01-29] MEDS ORDERED: DEXTROSE (50%) 50ML SYRG IV PRN (22:00)
[2022-01-29] MEDS ORDERED: NITROGLYCERIN 0.4 MG SL TAB SL PRN (22:45)
[2022-01-29] MEDS ORDERED: MORPHINE SULFATE INJECTION 2 MG/ML SYRG IV PRN (22:45)
[2022-01-29] MEDS: INSULIN LANTUS (GLARGINE) 1 /0.01ml (100units/ml) SC SCH (22:57)
[2022-01-29] MEDS: ACCU-CHEK COMFORT CURVE STRIP VI SCH (23:53)
[2022-01-30] VITALS (38 sets, daily range): BP systolic 87–140; BP diastolic 47–91
[2022-01-30] MEDS: InsuLIN REG 1unit/0.01ml Soln (100units/ml) SC SCH ×5 (00:05→23:35)
[2022-01-30 00:11] LABS: Urine Bacteria FEW /hpf (None Seen); Urine Blood TRACE /uL (Negative); Urine Specific Gravity 1.021 (1.001-1.035); Urine WBC 15 /hpf (0 - 5)
[2022-01-30 00:24] LABS: Amphetamine Screen, Urine POSITIVE (NEGATIVE); Barbiturate Scree,Urine NEGATIVE (NEGATIVE); Benzodiazephine Screen, Urine NEGATIVE (NEGATIVE); Cocaine Screen, Urine NEGATIVE (NEGATIVE); Opiate Scree,Urine NEGATIVE (NEGATIVE); Phencyclidine Screen, Urine NEGATIVE (NEGATIVE)
[2022-01-30] MEDS ORDERED: hydrALAZINE HCL 20 MG/ML VL IV PRN (00:30)
[2022-01-30 00:31] LABS: Cannabinoid Screen, Urine NEGATIVE (NEGATIVE)
[2022-01-30] MEDS: PIPERACILLIN-TAZOB 3.375GM 100 ML IV SCH ×2 (01:06→06:03)
[2022-01-30] MEDS: HYDROmorphone HCL 2 MG/ML VL/or syr IV PRN ×3 (01:06→20:14)
[2022-01-30] MEDS: ACETAMINOPHEN 325 MG TAB PO PRN (02:12)
[2022-01-30] MEDS ORDERED: METF-370 PO (03:51)
[2022-01-30] MEDS: ACCU-CHEK COMFORT CURVE STRIP VI SCH ×4 (06:03→23:38)
[2022-01-30] MEDS: INSULIN LANTUS (GLARGINE) 1 /0.01ml (100units/ml) SC SCH ×2 (06:13→21:37)
[2022-01-30 07:19] LABS: Basophils # (auto) 0 10 ^3/uL (0-0.2); Basophils % (auto) 0.2 % (0.0-2.0); Eosinophils # (auto) 0 10 ^3/uL (0-0.8); Eosinophils % (auto) 0.2 % (0.0-7.0); Hematocrit 25.5 % (36.0-46.0); Hemoglobin 8.4 g/dL (12.2-16.2); Lymphocytes # (auto) 0.6 10 ^3/uL (0.4-5.4); Lymphocytes % (auto) 3.3 % (10.0-50.0); Mean Corpuscular Hemoglobin 25.5 pg (28.0-32.0); Monocytes # (auto) 0.9 10 ^3/uL (0-1.3); Monocytes % (auto) 5.3 % (0.0-12.0); Neutrophils # (auto) 16.2 10 ^3/uL (1.6-8.6); Red Blood Cells 3.31 10^6/uL (4.0-5.20); Red Cell Distribution Width 17.2 % (11.8-14.3); White Blood Cell 17.7 10^3/uL (4.4-10.8)
[2022-01-30 07:24] LABS: Albumin 1.8 g/dL (3.4-5.0); Calcium 7.9 mg/dL (8.5-10.1); Potassium 3.3 mmol/L (3.5-5.1)
[2022-01-30 07:27] LABS: BUN/Creatinine Ratio 11.4
[2022-01-30 07:43] LABS: Bilirubin, Total 0.6 mg/dL (0.2-1.0)
[2022-01-30] MEDS: FAMOTIDINE (10MG/ML) 2ML VL IV SCH (10:00)
[2022-01-30] MEDS ORDERED: LORazepam 2MG/ML-1ML VIAL IV PRN (11:30)
[2022-01-30] MEDS ORDERED: FOLIC ACID 1 MG in D5W 5% 50 ML INJ ONE (11:30)
[2022-01-30] MEDS ORDERED: THIAMINE 100mg/ml INJ (200mg/2ml VIAL) IV ONE (11:30)
[2022-01-30] MEDS ORDERED: ONDANSETRON HCL 4 MG/2 ML VIAL IV PRN (11:45)
[2022-01-30] MEDS ORDERED: POTASSIUM EFFERVESENT TAB 25 MEQ PO ONE (11:45)
[2022-01-30] MEDS: SODIUM CHLORIDE 0.9% 1,000 ML IV SCH ×2 (12:21→18:30)
[2022-01-30] MEDS ORDERED: FOLIC ACID 1 MG, THIAMINE INJ 100 MG in D5W 5% 50 ML INJ ONE (12:30)
[2022-01-30] MEDS ORDERED: NOREPINEPHRINE 8 MG/250ML KIT 250 ML IV ONE (15:05)
[2022-01-30] MEDS: NOREPINEPHRINE 8 MG/250ML KIT 250 ML IV SCH (15:13)
[2022-01-30] MEDS ORDERED: ALBUMIN 5% 50 ML IV ONE ×2 (15:15→16:30)
[2022-01-30 15:34] LABS: Basophils # (auto) 0.1 10 ^3/uL (0-0.2); Hemoglobin 7.2 g/dL (12.2-16.2); Mean Corpuscular Hemoglobin 24.6 pg (28.0-32.0); Red Blood Cells 2.92 10^6/uL (4.0-5.20)
[2022-01-30 15:35] LABS: Basophils % (auto) 0.4 % (0.0-2.0); Eosinophils # (auto) 0 10 ^3/uL (0-0.8); Hematocrit 22.7 % (36.0-46.0); Lymphocytes # (auto) 1.2 10 ^3/uL (0.4-5.4); Mean Corpuscular Hgb Conc. 31.6 g/dL (32.0-36.0); Mean Corpuscular Volume 77.8 fL (80.0-100.0); Monocytes # (auto) 0.8 10 ^3/uL (0-1.3); Monocytes % (auto) 3.4 % (0.0-12.0); Neutrophils # (auto) 22.7 10 ^3/uL (1.6-8.6); Neutrophils % (auto) 91.2 % (37.0-80.0); Red Cell Distribution Width 16.9 % (11.8-14.3); White Blood Cell 24.9 10^3/uL (4.4-10.8)
[2022-01-30 15:45] LABS: Albumin 1.7 g/dL (3.4-5.0); Calcium 7.5 mg/dL (8.5-10.1)
[2022-01-30 15:48] LABS: BUN/Creatinine Ratio 12.1; Bilirubin, Total 0.9 mg/dL (0.2-1.0)
[2022-01-30 16:19] LABS: Potassium 4.8 mmol/L (3.5-5.1)
[2022-01-30] MEDS: PHENYLEPHRINE IV 250 ML IV SCH ×2 (16:24→23:35)
[2022-01-30] MEDS ORDERED: DEXTROSE (50%) 50ML SYRG IV PRN (17:00)
[2022-01-30 17:56] LABS: INR 1.21 (0.9-1.15); Partial Thromboplastin Time 37.9 sec (23.6-33.0)
[2022-01-30 18:32] LABS: Lactic Acid w/Reflex 2.8 mmol/L (0.4-2.0)
[2022-01-30] MEDS: MEROPENEM 1GM IVPB 100 ML IV SCH (21:51)
[2022-01-31] VITALS (54 sets, daily range): BP systolic 97–170; BP diastolic 52–91
[2022-01-31] MEDS: HYDROmorphone HCL 2 MG/ML VL/or syr IV PRN ×4 (00:38→21:02)
[2022-01-31] MEDS: SODIUM CHLORIDE 0.9% 1,000 ML IV SCH ×2 (02:30→11:16)
[2022-01-31 03:47] LABS: Hemoglobin 7.6 g/dL (12.2-16.2); Red Cell Distribution Width 17.2 % (11.8-14.3)
[2022-01-31 03:49] LABS: Basophils # (auto) 0 10 ^3/uL (0-0.2); Basophils % (auto) 0.1 % (0.0-2.0); Eosinophils # (auto) 0 10 ^3/uL (0-0.8); Eosinophils % (auto) 0.2 % (0.0-7.0); Hematocrit 22.9 % (36.0-46.0); Lymphocytes # (auto) 1.4 10 ^3/uL (0.4-5.4); Lymphocytes % (auto) 6.5 % (10.0-50.0); Mean Corpuscular Hemoglobin 25.2 pg (28.0-32.0); Mean Corpuscular Volume 76.4 fL (80.0-100.0); Monocytes # (auto) 0.9 10 ^3/uL (0-1.3); Monocytes % (auto) 3.9 % (0.0-12.0); Neutrophils # (auto) 19.9 10 ^3/uL (1.6-8.6); Neutrophils % (auto) 89.3 % (37.0-80.0); White Blood Cell 22.3 10^3/uL (4.4-10.8)
[2022-01-31 04:13] LABS: Albumin 1.8 g/dL (3.4-5.0); Calcium 7.1 mg/dL (8.5-10.1); Potassium 3.8 mmol/L (3.5-5.1)
[2022-01-31 04:17] LABS: Protein, Urine 162.5 mg/dL (0.0-11.9)
[2022-01-31 04:23] LABS: BUN/Creatinine Ratio 14.4; Bilirubin, Direct 0.7 mg/dL (0-0.2); Bilirubin, Total 0.9 mg/dL (0.2-1.0); Total Protein 6.3 g/dL (6.4-8.2)
[2022-01-31] MEDS: InsuLIN REG 1unit/0.01ml Soln (100units/ml) SC SCH ×3 (05:44→18:15)
[2022-01-31] MEDS: ACCU-CHEK COMFORT CURVE STRIP VI SCH ×3 (05:44→18:13)
[2022-01-31] MEDS: INSULIN LANTUS (GLARGINE) 1 /0.01ml (100units/ml) SC SCH ×2 (06:30→21:09)
[2022-01-31] MEDS: PHENYLEPHRINE IV 250 ML IV SCH ×2 (07:55→16:15)
[2022-01-31] MEDS ORDERED: POTASSIUM EFFERVESENT TAB 25 MEQ PO SCH (10:00)
[2022-01-31] MEDS ORDERED: THIAMINE 100mg/ml INJ (200mg/2ml VIAL) IV SCH (10:00)
[2022-01-31] MEDS: FAMOTIDINE (10MG/ML) 2ML VL IV SCH (10:40)
[2022-01-31] MEDS: MEROPENEM 1GM IVPB 100 ML IV SCH ×2 (10:40→21:03)
[2022-01-31] MEDS: ACETAMINOPHEN 325 MG TAB PO PRN (10:41)
[2022-01-31] MEDS: FOLIC ACID 1 MG, THIAMINE INJ 100 MG in D5W 5% 50 ML INJ SCH (12:05)
[2022-01-31] MEDS: NOREPINEPHRINE 8 MG/250ML KIT 250 ML IV SCH (15:15)
[2022-01-31] MEDS: SODIUM BICARBONATE 50ML VIAL 50 ML in SOD CHL 0.45% 1,000 ML IV SCH ×2 (15:18→22:02)
[2022-01-31] MEDS ORDERED: GABAPENTIN 100 MG CAP PO ONE (15:30)
[2022-01-31] MEDS: GABAPENTIN 100 MG CAP PO SCH (21:03)
[2022-02-01] VITALS (28 sets, daily range): BP systolic 103–131; BP diastolic 56–74
[2022-02-01] MEDS: ACCU-CHEK COMFORT CURVE STRIP VI SCH ×4 (00:15→18:30)
[2022-02-01] MEDS: InsuLIN REG 1unit/0.01ml Soln (100units/ml) SC SCH ×4 (00:16→18:36)
[2022-02-01] MEDS: PHENYLEPHRINE IV 250 ML IV SCH ×3 (00:17→17:04)
[2022-02-01] MEDS: HYDROmorphone HCL 2 MG/ML VL/or syr IV PRN ×3 (01:30→14:50)
[2022-02-01 03:52] LABS: Mean Corpuscular Hgb Conc. 32.9 g/dL (32.0-36.0)
[2022-02-01 03:57] LABS: Hematocrit 20.8 % (36.0-46.0); Mean Corpuscular Hemoglobin 25.2 pg (28.0-32.0); Mean Corpuscular Volume 76.4 fL (80.0-100.0); Red Blood Cells 2.72 10^6/uL (4.0-5.20); Red Cell Distribution Width 17.3 % (11.8-14.3)
[2022-02-01 04:11] LABS: Albumin 1.6 g/dL (3.4-5.0); Calcium 7.2 mg/dL (8.5-10.1); Potassium 4.1 mmol/L (3.5-5.1)
[2022-02-01 04:13] LABS: BUN/Creatinine Ratio 17.3; Bilirubin, Total 0.7 mg/dL (0.2-1.0); Total Protein 5.9 g/dL (6.4-8.2)
[2022-02-01 04:26] LABS: Hemoglobin 6.8 g/dL (12.2-16.2)
[2022-02-01 04:27] LABS: Basophils % (manual) 0 (0.0-2.0); Blast Cells 0; Eosinophils % (manual) 0 (0-7); Metamyelocytes % 0; Monocytes % (manual) 0 (0-12); Promyelocytes % 0; Reactive Lymphocytes 0
[2022-02-01] MEDS: SODIUM BICARBONATE 50ML VIAL 50 ML in SOD CHL 0.45% 1,000 ML IV SCH ×4 (05:00→19:42)
[2022-02-01] MEDS: GABAPENTIN 100 MG CAP PO SCH ×3 (06:09→21:20)
[2022-02-01] MEDS: INSULIN LANTUS (GLARGINE) 1 /0.01ml (100units/ml) SC SCH ×2 (06:11→21:28)
[2022-02-01 07:58] LABS: Band Neutrophils % (manual) 4; Lymphocytes % (manual) 9 (10.0-50.0); Myelocytes % 1
[2022-02-01] MEDS: FAMOTIDINE (10MG/ML) 2ML VL IV SCH (10:18)
[2022-02-01] MEDS: MEROPENEM 1GM IVPB 100 ML IV SCH ×2 (10:18→21:20)
[2022-02-01] MEDS ORDERED: diphenhdrAMINE HCL 50 MG/1 ML VL ONE (11:38)
[2022-02-01] MEDS ORDERED: diphenhdrAMINE HCL 50 MG/1 ML VL IV ONE (11:45)
[2022-02-01] MEDS: FOLIC ACID 1 MG, THIAMINE INJ 100 MG in D5W 5% 50 ML INJ SCH (12:15)
[2022-02-01] MEDS ORDERED: POLYETHYLENE GLYCOL 17 GM PWDR PO ONE (13:15)
[2022-02-01 13:34] LABS: Hepatitis C Antibody Negative (Negative)
[2022-02-01] MEDS: NOREPINEPHRINE 8 MG/250ML KIT 250 ML IV SCH (15:15)
[2022-02-01] MEDS: ERGOCALCIFEROL 50,000 UNIT(1.25MG) CAP PO SCH (15:26)
[2022-02-02] VITALS (29 sets, daily range): BP systolic 116–145; BP diastolic 58–83
[2022-02-02] MEDS: ACCU-CHEK COMFORT CURVE STRIP VI SCH ×4 (00:22→18:08)
[2022-02-02] MEDS: InsuLIN REG 1unit/0.01ml Soln (100units/ml) SC SCH ×4 (00:23→18:15)
[2022-02-02] MEDS: PHENYLEPHRINE IV 250 ML IV SCH ×2 (01:35→09:44)
[2022-02-02] MEDS: HYDROmorphone HCL 2 MG/ML VL/or syr IV PRN ×5 (01:42→20:31)
[2022-02-02] MEDS: SODIUM BICARBONATE 50ML VIAL 50 ML in SOD CHL 0.45% 1,000 ML IV SCH ×2 (01:59→14:10)
[2022-02-02 04:42] LABS: Albumin 1.6 g/dL (3.4-5.0); Calcium 7.3 mg/dL (8.5-10.1); Potassium 3.9 mmol/L (3.5-5.1)
[2022-02-02 04:46] LABS: Bilirubin, Total 3.1 mg/dL (0.2-1.0)
[2022-02-02 04:48] LABS: Hematocrit 20.2 % (36.0-46.0); Mean Corpuscular Hemoglobin 25.4 pg (28.0-32.0); Mean Corpuscular Hgb Conc. 33.4 g/dL (32.0-36.0); Mean Corpuscular Volume 75.9 fL (80.0-100.0); Red Blood Cells 2.66 10^6/uL (4.0-5.20); Red Cell Distribution Width 17.5 % (11.8-14.3); White Blood Cell 12.4 10^3/uL (4.4-10.8)
[2022-02-02 04:59] LABS: INR 1.04 (0.9-1.15); Partial Thromboplastin Time 30.5 sec (23.6-33.0)
[2022-02-02 05:17] LABS: Hemoglobin 6.8 g/dL (12.2-16.2)
[2022-02-02 05:18] LABS: Basophils % (manual) 0 (0.0-2.0); Blast Cells 0; Eosinophils % (manual) 0 (0-7); Metamyelocytes % 0; Myelocytes % 0; Promyelocytes % 0; Reactive Lymphocytes 0
[2022-02-02 05:26] LABS: Band Neutrophils % (manual) 6; Lymphocytes % (manual) 12 (10.0-50.0); Monocytes % (manual) 11 (0-12)
[2022-02-02] MEDS: GABAPENTIN 100 MG CAP PO SCH ×3 (06:24→22:15)
[2022-02-02] MEDS: INSULIN LANTUS (GLARGINE) 1 /0.01ml (100units/ml) SC SCH ×2 (06:29→22:23)
[2022-02-02 08:42] LABS: Hematocrit 21.2 % (36.0-46.0)
[2022-02-02 08:49] LABS: Hemoglobin 6.9 g/dL (12.2-16.2)
[2022-02-02] MEDS: FAMOTIDINE (10MG/ML) 2ML VL IV SCH (10:51)
[2022-02-02] MEDS: FOLIC ACID 1 MG, THIAMINE INJ 100 MG in D5W 5% 50 ML INJ SCH (10:51)
[2022-02-02] MEDS: MEROPENEM 1GM IVPB 100 ML IV SCH ×2 (10:51→22:15)
[2022-02-02] MEDS ORDERED: BUMETANIDE 2.5mg/10ml (0.25 mg/ml) INJ IV ONE ×2 (14:15→19:00)
[2022-02-02] MEDS ORDERED: methylPREDNISolone SOD SUCC 125 MG/2 ML VL IV ONE (14:15)
[2022-02-02] MEDS ORDERED: diphenhdrAMINE HCL 50 MG/1 ML VL IV ONE (14:15)
[2022-02-02] MEDS ORDERED: ALBUMIN 25% 50 ML IV ONE (17:45)
[2022-02-03] VITALS (16 sets, daily range): BP systolic 110–155; BP diastolic 53–85
[2022-02-03] MEDS: ACCU-CHEK COMFORT CURVE STRIP VI SCH ×4 (00:17→18:28)
[2022-02-03] MEDS: InsuLIN REG 1unit/0.01ml Soln (100units/ml) SC SCH ×5 (00:22→22:14)
[2022-02-03] MEDS: HYDROmorphone HCL 2 MG/ML VL/or syr IV PRN ×3 (01:07→09:43)
[2022-02-03] MEDS: ACETAMINOPHEN 325 MG TAB PO PRN (03:29)
[2022-02-03 03:45] LABS: Hemoglobin 9.4 g/dL (12.2-16.2); White Blood Cell 13.3 10^3/uL (4.4-10.8)
[2022-02-03 03:46] LABS: Hematocrit 28.2 % (36.0-46.0); Mean Corpuscular Hemoglobin 26.4 pg (28.0-32.0); Mean Corpuscular Hgb Conc. 33.2 g/dL (32.0-36.0); Mean Corpuscular Volume 79.5 fL (80.0-100.0); Red Blood Cells 3.55 10^6/uL (4.0-5.20); Red Cell Distribution Width 18.1 % (11.8-14.3)
[2022-02-03 03:49] LABS: Basophils % (manual) 0 (0.0-2.0); Blast Cells 0; Eosinophils % (manual) 0 (0-7); Promyelocytes % 0; Reactive Lymphocytes 0
[2022-02-03 03:57] LABS: Potassium 4.8 mmol/L (3.5-5.1)
[2022-02-03] MEDS: GABAPENTIN 100 MG CAP PO SCH ×3 (05:43→22:10)
[2022-02-03] MEDS: INSULIN LANTUS (GLARGINE) 1 /0.01ml (100units/ml) SC SCH ×2 (05:53→22:14)
[2022-02-03 07:06] LABS: Band Neutrophils % (manual) 9; Lymphocytes % (manual) 7 (10.0-50.0); Metamyelocytes % 1; Monocytes % (manual) 6 (0-12); Myelocytes % 1
[2022-02-03] MEDS: MEROPENEM 1GM IVPB 100 ML IV SCH ×2 (08:32→22:10)
[2022-02-03] MEDS: FAMOTIDINE (10MG/ML) 2ML VL IV SCH (09:36)
[2022-02-03] MEDS: FOLIC ACID 1 MG, THIAMINE INJ 100 MG in D5W 5% 50 ML INJ SCH (09:36)
[2022-02-03] MEDS: FUROSEMIDE 40 MG/4 ML VIAL IV SCH (10:17)
[2022-02-03] MEDS ORDERED: ALBUMIN 25% 50 ML IV ONE (12:00)
[2022-02-03] MEDS: HYDROcodone-ACET 10/325MG TAB PO PRN ×2 (15:26→22:18)
[2022-02-04] MEDS: HYDROmorphone HCL 2 MG/ML VL/or syr IV PRN ×4 (01:06→20:35)
[2022-02-04] MEDS ORDERED: diphenhdrAMINE HCL 50 MG/1 ML VL IV PRN (03:34)
[2022-02-04] MEDS: HYDROcodone-ACET 10/325MG TAB PO PRN ×4 (03:52→22:51)
[2022-02-04 05:00] VITALS: BP 136/62
[2022-02-04] MEDS: ACCU-CHEK COMFORT CURVE STRIP VI SCH ×5 (05:20→22:52)
[2022-02-04] MEDS: GABAPENTIN 100 MG CAP PO SCH ×3 (06:19→22:50)
[2022-02-04] MEDS: INSULIN LANTUS (GLARGINE) 1 /0.01ml (100units/ml) SC SCH ×2 (06:21→22:51)
[2022-02-04] MEDS: InsuLIN REG 1unit/0.01ml Soln (100units/ml) SC SCH ×4 (06:24→22:53)
[2022-02-04 06:28] LABS: White Blood Cell 11.9 10^3/uL (4.4-10.8)
[2022-02-04 06:30] LABS: Hematocrit 27.7 % (36.0-46.0); Hemoglobin 9.6 g/dL (12.2-16.2); Mean Corpuscular Hemoglobin 27.5 pg (28.0-32.0); Mean Corpuscular Hgb Conc. 34.7 g/dL (32.0-36.0); Mean Corpuscular Volume 79.2 fL (80.0-100.0); Red Cell Distribution Width 17.4 % (11.8-14.3)
[2022-02-04 06:42] LABS: BUN/Creatinine Ratio 29.6; Calcium 8.5 mg/dL (8.5-10.1); Potassium 4.6 mmol/L (3.5-5.1)
[2022-02-04 06:56] LABS: Basophils % (manual) 0 (0.0-2.0); Blast Cells 0; Myelocytes % 0; Promyelocytes % 0; Reactive Lymphocytes 0
[2022-02-04 08:04] LABS: Band Neutrophils % (manual) 43; Eosinophils % (manual) 1 (0-7); Lymphocytes % (manual) 24 (10.0-50.0); Metamyelocytes % 3; Monocytes % (manual) 9 (0-12)
[2022-02-04 09:00] VITALS: BP 149/82
[2022-02-04] MEDS: FAMOTIDINE (10MG/ML) 2ML VL IV SCH (10:40)
[2022-02-04] MEDS: FUROSEMIDE 40 MG/4 ML VIAL IV SCH (10:40)
[2022-02-04] MEDS: FOLIC ACID 1 MG, THIAMINE INJ 100 MG in D5W 5% 50 ML INJ SCH (10:40)
[2022-02-04] MEDS: MEROPENEM 1GM IVPB 100 ML IV SCH (10:40)
[2022-02-04 13:00] VITALS: BP 150/78
[2022-02-04] MEDS ORDERED: CEFTRIAXONE SODIUM 2 GM in D5W 5% 50 ML IV ONE (14:00)
[2022-02-04 17:13] VITALS: BP 132/67
[2022-02-04 22:00] VITALS: BP 170/81
[2022-02-05] MEDS: HYDROmorphone HCL 2 MG/ML VL/or syr IV PRN ×3 (03:39→18:00)
[2022-02-05 04:46] VITALS: BP 147/65
[2022-02-05 05:50] LABS: Basophils # (auto) 0 10 ^3/uL (0-0.2); Basophils % (auto) 0.3 % (0.0-2.0); Eosinophils # (auto) 0.1 10 ^3/uL (0-0.8); Eosinophils % (auto) 0.6 % (0.0-7.0); Hematocrit 30.2 % (36.0-46.0); Hemoglobin 9.9 g/dL (12.2-16.2); Lymphocytes # (auto) 1.9 10 ^3/uL (0.4-5.4); Lymphocytes % (auto) 16.7 % (10.0-50.0); Mean Corpuscular Hemoglobin 26.3 pg (28.0-32.0); Mean Corpuscular Hgb Conc. 32.9 g/dL (32.0-36.0); Mean Corpuscular Volume 79.8 fL (80.0-100.0); Monocytes # (auto) 1.4 10 ^3/uL (0-1.3); Monocytes % (auto) 11.7 % (0.0-12.0); Neutrophils # (auto) 8.2 10 ^3/uL (1.6-8.6); Neutrophils % (auto) 70.7 % (37.0-80.0); Nucleated Red Blood Cells % 0.2 %; Red Blood Cells 3.78 10^6/uL (4.0-5.20); Red Cell Distribution Width 18.2 % (11.8-14.3); White Blood Cell 11.6 10^3/uL (4.4-10.8)
[2022-02-05] MEDS: ACCU-CHEK COMFORT CURVE STRIP VI SCH ×4 (06:20→23:31)
[2022-02-05] MEDS: GABAPENTIN 100 MG CAP PO SCH ×3 (06:20→21:10)
[2022-02-05] MEDS: InsuLIN REG 1unit/0.01ml Soln (100units/ml) SC SCH ×4 (06:23→23:33)
[2022-02-05] MEDS: INSULIN LANTUS (GLARGINE) 1 /0.01ml (100units/ml) SC SCH ×2 (06:27→21:39)
[2022-02-05 09:00] VITALS: BP 150/80
[2022-02-05 09:10] LABS: BUN/Creatinine Ratio 30.6; Calcium 8.9 mg/dL (8.5-10.1); Potassium 4.4 mmol/L (3.5-5.1)
[2022-02-05] MEDS: FUROSEMIDE 40 MG/4 ML VIAL IV SCH (10:06)
[2022-02-05] MEDS: FOLIC ACID 1 MG, THIAMINE INJ 100 MG in D5W 5% 50 ML INJ SCH (10:07)
[2022-02-05] MEDS: CEFTRIAXONE SODIUM 2 GM in D5W 5% 50 ML IV SCH (11:30)
[2022-02-05 13:00] VITALS: BP 174/81
[2022-02-05 17:00] VITALS: BP 148/67
[2022-02-05] MEDS: ACETAMINOPHEN 325 MG TAB PO PRN (17:07)
[2022-02-05] MEDS: HYDROcodone-ACET 10/325MG TAB PO PRN (20:39)
[2022-02-05 21:55] VITALS: BP 122/60
[2022-02-06] MEDS: HYDROcodone-ACET 10/325MG TAB PO PRN ×2 (01:45→10:50)
[2022-02-06 04:50] VITALS: BP 133/54
[2022-02-06 05:39] LABS: Basophils # (auto) 0.1 10 ^3/uL (0-0.2); Eosinophils # (auto) 0.1 10 ^3/uL (0-0.8); Hemoglobin 9.9 g/dL (12.2-16.2); Lymphocytes # (auto) 1.4 10 ^3/uL (0.4-5.4); Lymphocytes % (auto) 8.2 % (10.0-50.0)
[2022-02-06 05:41] LABS: Basophils % (auto) 0.3 % (0.0-2.0); Eosinophils % (auto) 0.4 % (0.0-7.0); Mean Corpuscular Hemoglobin 26.8 pg (28.0-32.0); Mean Corpuscular Hgb Conc. 34.3 g/dL (32.0-36.0); Monocytes # (auto) 0.8 10 ^3/uL (0-1.3); Monocytes % (auto) 4.6 % (0.0-12.0); Neutrophils # (auto) 15.2 10 ^3/uL (1.6-8.6); Neutrophils % (auto) 86.5 % (37.0-80.0); Nucleated Red Blood Cells % 0.1 %; Red Blood Cells 3.71 10^6/uL (4.0-5.20); Red Cell Distribution Width 18.4 % (11.8-14.3); White Blood Cell 17.6 10^3/uL (4.4-10.8)
[2022-02-06] MEDS: InsuLIN REG 1unit/0.01ml Soln (100units/ml) SC SCH ×3 (05:59→18:00)
[2022-02-06] MEDS: GABAPENTIN 100 MG CAP PO SCH ×3 (05:59→21:54)
[2022-02-06] MEDS: ACCU-CHEK COMFORT CURVE STRIP VI SCH ×3 (06:00→18:18)
[2022-02-06] MEDS: HYDROmorphone HCL 2 MG/ML VL/or syr IV PRN ×2 (06:20→22:00)
[2022-02-06] MEDS: INSULIN LANTUS (GLARGINE) 1 /0.01ml (100units/ml) SC SCH ×2 (06:41→21:55)
[2022-02-06 09:00] VITALS: BP 139/63
[2022-02-06] MEDS ORDERED: LACTULOSE 20Gm/30ML SOLN PO ONE (09:30)
[2022-02-06] MEDS: FOLIC ACID 1 MG, THIAMINE INJ 100 MG in D5W 5% 50 ML INJ SCH (09:37)
[2022-02-06] MEDS: FUROSEMIDE 40 MG/4 ML VIAL IV SCH (09:38)
[2022-02-06] MEDS: CEFTRIAXONE SODIUM 2 GM in D5W 5% 50 ML IV SCH (09:38)
[2022-02-06] MEDS: DOCUSATE SOD 100 MG CAP PO SCH ×2 (12:30→21:54)
[2022-02-06] MEDS: ACETAMINOPHEN 325 MG TAB PO PRN (12:31)
[2022-02-06 13:00] VITALS: BP 138/57
[2022-02-06 17:00] VITALS: BP 120/53
[2022-02-06] MEDS ORDERED: VANCOMYCIN 1GM/250ML 250 ML IV STA (17:59)
[2022-02-06] MEDS ORDERED: VANCOMYCIN PER PHARMACY 0 MG IV SCH (18:00)
[2022-02-06] MEDS: metroNIDAZOLE 500MG/100ML 100 ML IV SCH (21:54)
[2022-02-06 22:00] VITALS: BP 129/52
[2022-02-07] MEDS: ACCU-CHEK COMFORT CURVE STRIP VI SCH ×4 (00:09→17:22)
[2022-02-07] MEDS: HYDROcodone-ACET 10/325MG TAB PO PRN ×3 (00:18→19:22)
[2022-02-07] MEDS: HYDROmorphone HCL 2 MG/ML VL/or syr IV PRN ×2 (02:41→08:45)
[2022-02-07 05:00] VITALS: BP 122/68
[2022-02-07] MEDS: InsuLIN REG 1unit/0.01ml Soln (100units/ml) SC SCH ×4 (06:00→17:22)
[2022-02-07] MEDS: GABAPENTIN 100 MG CAP PO SCH ×3 (06:11→21:38)
[2022-02-07] MEDS: metroNIDAZOLE 500MG/100ML 100 ML IV SCH ×3 (06:11→21:37)
[2022-02-07] MEDS: INSULIN LANTUS (GLARGINE) 1 /0.01ml (100units/ml) SC SCH ×2 (06:12→21:42)
[2022-02-07 06:56] LABS: Basophils # (auto) 0.1 10 ^3/uL (0-0.2); Eosinophils # (auto) 0.1 10 ^3/uL (0-0.8); Hemoglobin 9.7 g/dL (12.2-16.2)
[2022-02-07 07:00] LABS: Basophils % (auto) 0.4 % (0.0-2.0); Eosinophils % (auto) 0.5 % (0.0-7.0); Hematocrit 28.5 % (36.0-46.0); Lymphocytes # (auto) 1.9 10 ^3/uL (0.4-5.4); Lymphocytes % (auto) 10.6 % (10.0-50.0); Mean Corpuscular Hemoglobin 26.8 pg (28.0-32.0); Mean Corpuscular Hgb Conc. 34.1 g/dL (32.0-36.0); Mean Corpuscular Volume 78.6 fL (80.0-100.0); Monocytes # (auto) 0.8 10 ^3/uL (0-1.3); Monocytes % (auto) 4.3 % (0.0-12.0); Neutrophils # (auto) 14.9 10 ^3/uL (1.6-8.6); Neutrophils % (auto) 84.2 % (37.0-80.0); Nucleated Red Blood Cells % 0.1 %; Red Blood Cells 3.62 10^6/uL (4.0-5.20); Red Cell Distribution Width 18.7 % (11.8-14.3); White Blood Cell 17.7 10^3/uL (4.4-10.8)
[2022-02-07 07:21] LABS: Calcium 8.4 mg/dL (8.5-10.1); Potassium 4.5 mmol/L (3.5-5.1)
[2022-02-07 07:23] LABS: BUN/Creatinine Ratio 31.2
[2022-02-07 09:00] VITALS: BP 142/77
[2022-02-07] MEDS: DOCUSATE SOD 100 MG CAP PO SCH ×2 (10:00→21:38)
[2022-02-07] MEDS: FUROSEMIDE 40 MG/4 ML VIAL IV SCH (10:15)
[2022-02-07] MEDS: CEFTRIAXONE SODIUM 2 GM in D5W 5% 50 ML IV SCH (10:15)
[2022-02-07] MEDS: FOLIC ACID 1 MG, THIAMINE INJ 100 MG in D5W 5% 50 ML INJ SCH (10:16)
[2022-02-07 13:00] VITALS: BP 160/62
[2022-02-07 17:14] VITALS: BP 119/63
[2022-02-07] MEDS ORDERED: VANCOMYCIN 1GM/250ML 250 ML IV ONE (18:00)
[2022-02-07] MEDS: ACETAMINOPHEN 325 MG TAB PO PRN (18:11)
[2022-02-07 22:00] VITALS: BP 100/53
[2022-02-08] MEDS: ACCU-CHEK COMFORT CURVE STRIP VI SCH ×3 (00:32→12:00)
[2022-02-08] MEDS: HYDROcodone-ACET 10/325MG TAB PO PRN ×3 (00:32→11:29)
[2022-02-08] MEDS: InsuLIN REG 1unit/0.01ml Soln (100units/ml) SC SCH ×3 (00:34→12:00)
[2022-02-08 05:00] VITALS: BP 125/56
[2022-02-08] MEDS: metroNIDAZOLE 500MG/100ML 100 ML IV SCH ×2 (06:21→13:29)
[2022-02-08] MEDS: GABAPENTIN 100 MG CAP PO SCH ×2 (06:21→13:29)
[2022-02-08] MEDS: INSULIN LANTUS (GLARGINE) 1 /0.01ml (100units/ml) SC SCH (06:23)
[2022-02-08 09:12] VITALS: BP_SYST 119; BP_SYST 125; BP_DIAS 57; BP_DIAS 63
[2022-02-08 09:37] LABS: Basophils # (auto) 0.1 10 ^3/uL (0-0.2); Eosinophils # (auto) 0.1 10 ^3/uL (0-0.8); Neutrophils # (auto) 10.5 10 ^3/uL (1.6-8.6); Nucleated Red Blood Cells % 0.1 %
[2022-02-08 09:39] LABS: Basophils % (auto) 0.4 % (0.0-2.0); Eosinophils % (auto) 0.5 % (0.0-7.0); Hematocrit 26.5 % (36.0-46.0); Lymphocytes # (auto) 1.3 10 ^3/uL (0.4-5.4); Lymphocytes % (auto) 9.7 % (10.0-50.0); Mean Corpuscular Hemoglobin 26.5 pg (28.0-32.0); Mean Corpuscular Hgb Conc. 33.9 g/dL (32.0-36.0); Monocytes % (auto) 7.8 % (0.0-12.0); Neutrophils % (auto) 81.6 % (37.0-80.0); Red Blood Cells 3.39 10^6/uL (4.0-5.20); Red Cell Distribution Width 18.4 % (11.8-14.3); White Blood Cell 12.9 10^3/uL (4.4-10.8)
[2022-02-08 09:43] LABS: Mean Corpuscular Volume 78.3 fL (80.0-100.0)
[2022-02-08] MEDS ORDERED: GLIP10TA9 PO (10:19)
[2022-02-08] MEDS ORDERED: LEVO500T31 PO (10:19)
[2022-02-08] MEDS ORDERED: ERGO1CAP23 PO (10:19)
[2022-02-08] MEDS ORDERED: INSLANTI SC (10:19)
[2022-02-08] MEDS ORDERED: TAM04C PO (10:22)
[2022-02-08 10:39] LABS: INR 1.13 (0.9-1.15); Partial Thromboplastin Time 29.9 sec (23.6-33.0)
[2022-02-08] MEDS: FOLIC ACID 1 MG, THIAMINE INJ 100 MG in D5W 5% 50 ML INJ SCH (11:27)
[2022-02-08] MEDS: CEFTRIAXONE SODIUM 2 GM in D5W 5% 50 ML IV SCH (11:28)
[2022-02-08] MEDS: DOCUSATE SOD 100 MG CAP PO SCH (11:29)
[2022-02-08 12:53] VITALS: BP 120/92
[2022-02-08 12:57] VITALS: BP 152/61
[2022-02-08] MEDS: ERGOCALCIFEROL 50,000 UNIT(1.25MG) CAP PO SCH (13:29)
[2022-02-08 13:36] VITALS: BP 142/77
== END 2022-02-08 16:00 | disposition home health service (06) | DRG 720 ==
LOC: EDBD 19:43 → ER 19:43 → CENTRAL 22:35 → UNDODISIN 01-30 09:00 → TELE-CENTR 01-30 11:24 → ICU WEST 01-30 14:38 → CENTRAL 02-03 11:02 → TELE-CENTR 02-03 22:32 → CENTRAL 02-08 10:36
PROVIDERS: ADMIT Nurse Practitioner Family; ATTEND Internal Medicine
PROC: 02HV33Z Insertion of Infusion Device into Superior Vena Cava, Percutaneous Approach (ICD-10-PCS; 2022-01-30)
PROC: 4A143B0 Monitoring of Venous Pressure, Central, Percutaneous Approach (ICD-10-PCS; 2022-01-30)
PROC: 02HV33Z Insertion of Infusion Device into Superior Vena Cava, Percutaneous Approach (ICD-10-PCS; 2022-01-30)
PROC: 30233N1 Transfusion of Nonautologous Red Blood Cells into Peripheral Vein, Percutaneous Approach (ICD-10-PCS; principal; 2022-02-01)
DX: A41.51 Sepsis due to Escherichia coli [E. coli] (principal); N17.9 Acute kidney failure, unspecified; E11.10 Type 2 diabetes mellitus with ketoacidosis without coma; E43 Unspecified severe protein-calorie malnutrition; D69.6 Thrombocytopenia, unspecified; E87.1 Hypo-osmolality and hyponatremia; E11.22 Type 2 diabetes mellitus with diabetic chronic kidney disease; D64.9 Anemia, unspecified; E11.42 Type 2 diabetes mellitus with diabetic polyneuropathy; E55.9 Vitamin D deficiency, unspecified; I12.9 Hypertensive chronic kidney disease with stage 1 through stage 4 chronic kidney disease, or unspecified chronic kidney disease; F15.10 Other stimulant abuse, uncomplicated; Z66 Do not resuscitate; N13.6 Pyonephrosis; E86.0 Dehydration; E87.6 Hypokalemia; N18.30 Chronic kidney disease, stage 3 unspecified; J43.9 Emphysema, unspecified; F17.210 Nicotine dependence, cigarettes, uncomplicated; R79.89 Other specified abnormal findings of blood chemistry; Z20.822 Contact with and (suspected) exposure to COVID-19; N94.6 Dysmenorrhea, unspecified; Z53.29 Procedure and treatment not carried out because of patient's decision for other reasons; E11.65 Type 2 diabetes mellitus with hyperglycemia; Z82.3 Family history of stroke; Z79.84 Long term (current) use of oral hypoglycemic drugs; Z82.49 Family history of ischemic heart disease and other diseases of the circulatory system; Z83.3 Family history of diabetes mellitus; Z87.442 Personal history of urinary calculi; Z91.19 Patient's noncompliance with other medical treatment and regimen; Z90.49 Acquired absence of other specified parts of digestive tract; Z88.5 Allergy status to narcotic agent; Z93.6 Other artificial openings of urinary tract status
CPT/HCPCS: 36415; 36600; 71045; 72148; 74176; 76775; 76856; 80048; 80053; 80076; 80202; 80307; 81001; 82306; 82565; 82570; 82805; 82962; 83036; 83605; 83970; 84100; 84156; 84300; 84702; 85007; 85014; 85018; 85025; 85027; 85610; 85730; 86803; 86850; 86900; 86901; 86920; 87040; 87077; 87081; 87086; 87088; 87186; 87340; 93005; 96361; 96365; 96375; 99291; G0378; J0696; J1815; J2185; J2405; J2543; J3490; J7060

== ENCOUNTER 2023-03-07 18:14 | Emergency (ER) | payer MEDICAID ==
[~2023-03-07] VITALS: Ht 154.9 cm; Wt 73.4 kg
[~2023-03-07 18:14] MED LIST changes: +ERGO1CAP23 PO; -GABA300C10 PO; +INSLANTI SC; +LEVO500T31 PO; -METF-370 PO; -METF-372 PO; +TAMS-35 PO
[2023-03-07] MEDS ORDERED: ACETAMINOPHEN 325 MG TAB PO ONE (18:45)
[2023-03-07 21:56] VITALS: BP 181/65
[2023-03-07] MEDS ORDERED: ONDANSETRON ODT 4 MG TAB PO ONE (22:45)
[2023-03-07] MEDS ORDERED: HYDROcodone-ACET 5/325MG TAB PO ONE (22:45)
[2023-03-08] MEDS ORDERED: NAP500T PO (00:55)
== END 2023-03-08 00:55 | disposition home or self-care (01) ==
LOC: ER 18:16
DX: S63.286A Dislocation of proximal interphalangeal joint of right little finger, initial encounter (principal); E11.22 Type 2 diabetes mellitus with diabetic chronic kidney disease; I13.0 Hypertensive heart and chronic kidney disease with heart failure and stage 1 through stage 4 chronic kidney disease, or unspecified chronic kidney disease; N18.9 Chronic kidney disease, unspecified; I50.9 Heart failure, unspecified; F17.210 Nicotine dependence, cigarettes, uncomplicated; F12.10 Cannabis abuse, uncomplicated; Z87.442 Personal history of urinary calculi; Z90.49 Acquired absence of other specified parts of digestive tract; Z88.6 Allergy status to analgesic agent; Z88.1 Allergy status to other antibiotic agents; X58.XXXA Exposure to other specified factors, initial encounter; Y93.39 Activity, other involving climbing, rappelling and jumping off; Y92.9 Unspecified place or not applicable; Y99.8 Other external cause status
CPT/HCPCS: 26770; 73110; 73130; 73140; 99284; Q0162

== ENCOUNTER 2023-08-01 11:12 | Inpatient (IN) | payer MEDICAID ==
[~2023-08-01] VITALS: Ht 154.9 cm; Wt 84.1 kg
[~2023-08-01 11:12] MED LIST changes: +NAP500T PO
[2023-08-01] MEDS ORDERED: ASPirin 325 MG TAB PO ONE (11:30)
[2023-08-01 11:51] LABS: Eosinophils # (auto) 0.2 10 ^3/uL (0-0.8); Hemoglobin 9.5 g/dL (12.2-16.2); Mean Corpuscular Volume 82.7 fL (80.0-100.0); White Blood Cell 8.1 10^3/uL (4.4-10.8)
[2023-08-01 11:53] LABS: Basophils # (auto) 0.1 10 ^3/uL (0-0.2); Basophils % (auto) 0.8 % (0.0-2.0); Eosinophils % (auto) 2.3 % (0.0-7.0); Hematocrit 29.9 % (36.0-46.0); Lymphocytes # (auto) 2.3 10 ^3/uL (0.4-5.4); Lymphocytes % (auto) 27.8 % (10.0-50.0); Mean Corpuscular Hemoglobin 26.2 pg (28.0-32.0); Mean Corpuscular Hgb Conc. 31.6 g/dL (32.0-36.0); Monocytes # (auto) 0.5 10 ^3/uL (0-1.3); Monocytes % (auto) 5.6 % (0.0-12.0); Neutrophils # (auto) 5.2 10 ^3/uL (1.6-8.6); Neutrophils % (auto) 63.5 % (37.0-80.0); Red Blood Cells 3.62 10^6/uL (4.0-5.20); Red Cell Distribution Width 16.3 % (11.8-14.3)
[2023-08-01 12:05] LABS: Alkaline Phosphatase 101 U/L (46-116)
[2023-08-01 12:06] LABS: Alanine Aminotransferase 14 U/L (7-40); Albumin 3.2 g/dL (3.2-4.8); Anion Gap 7 (5-15); Aspartate Aminotransferase 14 U/L (13-40); BUN/Creatinine Ratio 16.3 (10.0-20.0); Bilirubin, Total < 0.2 mg/dL (0.2-1.0); Blood Urea Nitrogen 20 mg/dL (9-23); Calcium 8.6 mg/dL (8.5-10.1); Carbon Dioxide 21 mmol/L (20-30); Chloride 101 mmol/L (98-107); Potassium 4.7 mmol/L (3.5-5.1); Sodium 129 mmol/L (136-145); Total Protein 5.2 g/dL (5.7-8.2)
[2023-08-01 12:30] LABS: Glucose 583 mg/dL (74-106)
[2023-08-01] MEDS ORDERED: InsuLIN REG 1unit/0.01ml Soln (100units/ml) IV ONE (13:00)
[2023-08-01] MEDS ORDERED: SODIUM CHLORIDE 0.9% 1,000 ML IV ONE ×2 (13:00)
[2023-08-01] MEDS ORDERED: ENOXAPARIN SOD 80 MG/0.8ML SYRINGE SC ONE (13:00)
[2023-08-01] MEDS ORDERED: ACETAMINOPHEN 325 MG TAB PO PRN (16:45)
[2023-08-01] MEDS ORDERED: DEXTROSE (50%) 50ML SYRG IV PRN (16:45)
[2023-08-01] MEDS ORDERED: ERGOCALCIFEROL 50,000 UNIT(1.25MG) CAP PO SCH (16:45)
[2023-08-01 17:35] LABS: Triglycerides 291 mg/dL (< 150)
[2023-08-01 17:36] LABS: LDL Cholesterol 158 mg/dL (< 100)
[2023-08-01 17:37] LABS: Cholesterol 233 mg/dL (< 200); HDL Cholesterol 52 mg/dL (40-59)
[2023-08-01] MEDS: ACCU-CHEK COMFORT CURVE STRIP VI SCH ×2 (18:14→22:45)
[2023-08-01] MEDS: MORPHINE SULFATE INJ 2 MG/ml SYRG IV PRN ×2 (18:22→22:47)
[2023-08-01] MEDS: InsuLIN REG 1unit/0.01ml Soln (100units/ml) SC SCH ×2 (18:23→22:47)
[2023-08-01 18:39] LABS: Erythrocyte Sedimentation Rate 78 mm/hr (0-20)
[2023-08-01] MEDS: METOPROLOL TARTRATE 25 MG TAB PO SCH (22:45)
[2023-08-01 22:50] VITALS: PULSE 80; RESP 18; O2SAT 97
[2023-08-02] MEDS: ATORVASTATIN 20 MG TAB PO SCH (01:10)
[2023-08-02] MEDS: NITROGLYCERIN 0.4 MG SL TAB SL PRN ×2 (04:00→06:23)
[2023-08-02] MEDS: ACCU-CHEK COMFORT CURVE STRIP VI SCH ×4 (06:18→22:00)
[2023-08-02] MEDS: InsuLIN REG 1unit/0.01ml Soln (100units/ml) SC SCH ×3 (06:23→20:15)
[2023-08-02 07:12] LABS: Eosinophils # (auto) 0.2 10 ^3/uL (0-0.8); Lymphocytes # (auto) 2.7 10 ^3/uL (0.4-5.4); Monocytes # (auto) 0.5 10 ^3/uL (0-1.3); Neutrophils # (auto) 5.8 10 ^3/uL (1.6-8.6); Neutrophils % (auto) 62.6 % (37.0-80.0); Nucleated Red Blood Cells % 0.1 %
[2023-08-02 07:15] LABS: Basophils # (auto) 0.1 10 ^3/uL (0-0.2); Basophils % (auto) 0.6 % (0.0-2.0); Eosinophils % (auto) 2.1 % (0.0-7.0); Hematocrit 29.6 % (36.0-46.0); Hemoglobin 9.5 g/dL (12.2-16.2); Lymphocytes % (auto) 29.2 % (10.0-50.0); Mean Corpuscular Hemoglobin 26.3 pg (28.0-32.0); Mean Corpuscular Hgb Conc. 32.3 g/dL (32.0-36.0); Mean Corpuscular Volume 81.6 fL (80.0-100.0); Monocytes % (auto) 5.5 % (0.0-12.0); Red Blood Cells 3.63 10^6/uL (4.0-5.20); Red Cell Distribution Width 16.1 % (11.8-14.3); White Blood Cell 9.2 10^3/uL (4.4-10.8)
[2023-08-02 07:22] LABS: Alanine Aminotransferase 10 U/L (7-40); Albumin 3.5 g/dL (3.2-4.8); Alkaline Phosphatase 96 U/L (46-116); Anion Gap 8 (5-15); Aspartate Aminotransferase 13 U/L (13-40); BUN/Creatinine Ratio 16.5 (10.0-20.0); Blood Urea Nitrogen 20 mg/dL (9-23); Carbon Dioxide 22 mmol/L (20-30); Chloride 103 mmol/L (98-107); Glucose 319 mg/dL (74-106); Potassium 4.1 mmol/L (3.5-5.1); Sodium 133 mmol/L (136-145)
[2023-08-02 07:23] LABS: Bilirubin, Total 0.2 mg/dL (0.2-1.0); Total Protein 6.1 g/dL (5.7-8.2)
[2023-08-02] MEDS: METOPROLOL TARTRATE 25 MG TAB PO SCH (10:00)
[2023-08-02] MEDS ORDERED: FUROSEMIDE 40 MG/4 ML VIAL IV ONE (12:15)
[2023-08-02] MEDS: ASPirin 81 mg TAB PO SCH (18:40)
[2023-08-02] MEDS: amLODIPine BESYLATE 5 MG TAB PO SCH (18:41)
[2023-08-02] MEDS ORDERED: CLOPIDOGREL 300 MG TAB PO ONE (18:45)
[2023-08-02] MEDS ORDERED: hydrALAZINE HCL 20 MG/ML VL IV PRN (18:45)
[2023-08-02] MEDS: FUROSEMIDE 40 MG/4 ML VIAL IV SCH (20:14)
[2023-08-02] MEDS ORDERED: HYDROcodone-ACET 5/325MG TAB PO PRN (20:45)
[2023-08-02] MEDS ORDERED: ENOXAPARIN SOD 80 MG/0.8ML SYRINGE SC SCH (22:00)
[2023-08-03] VITALS (7 sets, daily range): BP systolic 119–130; BP diastolic 53–70; PULSE 71–82; RESP 19–20; TEMP 97.6–98.9; O2SAT 94–99
[2023-08-03] MEDS: InsuLIN REG 1unit/0.01ml Soln (100units/ml) SC SCH ×5 (00:05→22:26)
[2023-08-03] MEDS: METOPROLOL TARTRATE 25 MG TAB PO SCH ×3 (00:07→22:25)
[2023-08-03] MEDS ORDERED: METF-372 PO (01:32)
[2023-08-03] MEDS: ACCU-CHEK COMFORT CURVE STRIP VI SCH ×4 (06:19→22:25)
[2023-08-03] MEDS: FUROSEMIDE 40 MG/4 ML VIAL IV SCH ×2 (06:19→18:02)
[2023-08-03 06:44] LABS: Basophils # (auto) 0.1 10 ^3/uL (0-0.2); Basophils % (auto) 0.9 % (0.0-2.0); Eosinophils # (auto) 0.2 10 ^3/uL (0-0.8); Hematocrit 27.6 % (36.0-46.0); Neutrophils # (auto) 5.4 10 ^3/uL (1.6-8.6); Red Cell Distribution Width 16.5 % (11.8-14.3)
[2023-08-03 06:46] LABS: Eosinophils % (auto) 2.6 % (0.0-7.0); Hemoglobin 8.9 g/dL (12.2-16.2); Lymphocytes # (auto) 3.1 10 ^3/uL (0.4-5.4); Lymphocytes % (auto) 32.9 % (10.0-50.0); Mean Corpuscular Hemoglobin 26.6 pg (28.0-32.0); Mean Corpuscular Hgb Conc. 32.2 g/dL (32.0-36.0); Mean Corpuscular Volume 82.5 fL (80.0-100.0); Monocytes # (auto) 0.6 10 ^3/uL (0-1.3); Monocytes % (auto) 6.1 % (0.0-12.0); Neutrophils % (auto) 57.5 % (37.0-80.0); Nucleated Red Blood Cells % 0.1 %; Red Blood Cells 3.35 10^6/uL (4.0-5.20); White Blood Cell 9.3 10^3/uL (4.4-10.8)
[2023-08-03 06:52] LABS: Calcium 8.4 mg/dL (8.7-10.4); Chloride 105 mmol/L (98-107); Potassium 4.1 mmol/L (3.5-5.1); Sodium 133 mmol/L (136-145)
[2023-08-03 06:53] LABS: Anion Gap 8 (5-15); Carbon Dioxide 20 mmol/L (20-30)
[2023-08-03 06:58] LABS: Glucose 236 mg/dL (74-106)
[2023-08-03 06:59] LABS: BUN/Creatinine Ratio 16.5 (10.0-20.0); Blood Urea Nitrogen 20 mg/dL (9-23)
[2023-08-03] MEDS ORDERED: ADENOSINE 70 MG in GIVE UN-DILUTED 0 ML IV ONE (07:45)
[2023-08-03] MEDS: ASPirin 81 mg TAB PO SCH (08:27)
[2023-08-03] MEDS: ENOXAPARIN SOD 40 MG/0.4 ML SYRINGE SC SCH (08:27)
[2023-08-03] MEDS: CLOPIDOGREL BISULFATE 75 MG TAB PO SCH (08:27)
[2023-08-03] MEDS: amLODIPine BESYLATE 5 MG TAB PO SCH (08:28)
[2023-08-03] MEDS ORDERED: ENOXAPARIN SOD 30 MG/0.3 ML SYRINGE SC SCH (10:00)
[2023-08-03 10:45] LABS: Amphetamine Screen, Urine Neg (NEGATIVE); Barbiturate Scree,Urine Neg (NEGATIVE); Benzodiazephine Screen, Urine Neg (NEGATIVE)
[2023-08-03 10:46] LABS: Cannabinoid Screen, Urine Neg (NEGATIVE); Cocaine Screen, Urine Neg (NEGATIVE); Opiate Scree,Urine Neg (NEGATIVE); Phencyclidine Screen, Urine Neg (NEGATIVE)
[2023-08-03 10:59] LABS: Urine Bacteria MOD /hpf (None Seen); Urine Blood Negative /uL (Negative); Urine Clarity Clear (Clear); Urine Protein, UAD 2+ (Negative); Urine Specific Gravity 1.008 (1.001-1.035); Urine Urobilinogen Normal (Negative); Urine WBC 20 /hpf (0 - 5); Urine pH 6.5 (5.0-8.0)
[2023-08-03 11:00] LABS: Urine Color Straw (Yellow)
[2023-08-03] MEDS: HYDROcodone-ACET 5/325MG TAB PO PRN ×2 (11:22→18:02)
[2023-08-03] MEDS ORDERED: cefTRIAXone 1GM/50ML D5W 50 ML IV ONE (16:00)
[2023-08-03] MEDS: ATORVASTATIN 20 MG TAB PO SCH (22:25)
[2023-08-04] MEDS: HYDROcodone-ACET 5/325MG TAB PO PRN ×4 (04:23→21:15)
[2023-08-04] MEDS: ACCU-CHEK COMFORT CURVE STRIP VI SCH ×4 (06:10→21:21)
[2023-08-04] MEDS: InsuLIN REG 1unit/0.01ml Soln (100units/ml) SC SCH ×3 (06:10→21:57)
[2023-08-04] MEDS: FUROSEMIDE 40 MG/4 ML VIAL IV SCH ×2 (06:10→17:14)
[2023-08-04 07:43] LABS: Anion Gap 7 (5-15); Carbon Dioxide 21 mmol/L (20-30); Chloride 104 mmol/L (98-107); Potassium 4.4 mmol/L (3.5-5.1); Sodium 132 mmol/L (136-145)
[2023-08-04 07:44] LABS: Calcium 8.7 mg/dL (8.5-10.1)
[2023-08-04 07:49] LABS: BUN/Creatinine Ratio 17.3 (10.0-20.0); Blood Urea Nitrogen 22 mg/dL (9-23); Glucose 315 mg/dL (74-106)
[2023-08-04 08:00] VITALS: PULSE 79
[2023-08-04] MEDS: cefTRIAXone 1GM/50ML D5W 50 ML IV SCH (09:33)
[2023-08-04 09:57] VITALS: BP 162/58; PULSE 70; RESP 18; TEMP 97.9; O2SAT 99
[2023-08-04] MEDS: METOPROLOL TARTRATE 25 MG TAB PO SCH ×2 (10:47→21:56)
[2023-08-04] MEDS: amLODIPine BESYLATE 5 MG TAB PO SCH (10:47)
[2023-08-04 10:48] LABS: Magnesium 2.1 mg/dL (1.6-2.6)
[2023-08-04] MEDS: ASPirin 81 mg TAB PO SCH (10:48)
[2023-08-04] MEDS: CLOPIDOGREL BISULFATE 75 MG TAB PO SCH (10:48)
[2023-08-04] MEDS: ENOXAPARIN SOD 40 MG/0.4 ML SYRINGE SC SCH (10:48)
[2023-08-04 12:56] VITALS: BP 143/58; PULSE 72; RESP 18; TEMP 98.5; O2SAT 97
[2023-08-04 16:58] VITALS: BP 126/43; PULSE 71; RESP 20; TEMP 98.5; O2SAT 97
[2023-08-04 20:00] VITALS: PULSE 77; PULSE 80
[2023-08-04] MEDS: ATORVASTATIN 20 MG TAB PO SCH (21:56)
[2023-08-04 22:00] VITALS: BP 106/59; PULSE 77; RESP 20; TEMP 97.7; O2SAT 95
[2023-08-05 05:00] VITALS: BP 111/54; PULSE 73; RESP 18; TEMP 97.9; O2SAT 95
[2023-08-05 05:48] LABS: Chloride 105 mmol/L (98-107); Potassium 4.4 mmol/L (3.5-5.1); Sodium 134 mmol/L (136-145)
[2023-08-05 05:49] LABS: Anion Gap 7 (5-15); Calcium 8.8 mg/dL (8.5-10.1); Carbon Dioxide 22 mmol/L (20-30)
[2023-08-05 05:54] LABS: BUN/Creatinine Ratio 19.4 (10.0-20.0); Blood Urea Nitrogen 30 mg/dL (9-23); Glucose 233 mg/dL (74-106)
[2023-08-05] MEDS: ACCU-CHEK COMFORT CURVE STRIP VI SCH ×2 (06:03→11:38)
[2023-08-05] MEDS: FUROSEMIDE 40 MG/4 ML VIAL IV SCH (06:03)
[2023-08-05] MEDS: InsuLIN REG 1unit/0.01ml Soln (100units/ml) SC SCH ×2 (06:04→11:38)
[2023-08-05 07:52] VITALS: PULSE 70
[2023-08-05 08:00] VITALS: PULSE 84
[2023-08-05] MEDS: cefTRIAXone 1GM/50ML D5W 50 ML IV SCH (09:06)
[2023-08-05] MEDS: HYDROcodone-ACET 5/325MG TAB PO PRN (09:07)
[2023-08-05 09:12] VITALS: BP 131/55; PULSE 74; RESP 18; TEMP 97.7; O2SAT 98
[2023-08-05] MEDS: CLOPIDOGREL BISULFATE 75 MG TAB PO SCH (10:58)
[2023-08-05] MEDS: ASPirin 81 mg TAB PO SCH (10:58)
[2023-08-05] MEDS: amLODIPine BESYLATE 5 MG TAB PO SCH (10:59)
[2023-08-05] MEDS: METOPROLOL TARTRATE 25 MG TAB PO SCH (11:00)
[2023-08-05] MEDS: ENOXAPARIN SOD 40 MG/0.4 ML SYRINGE SC SCH (11:00)
[2023-08-05] MEDS ORDERED: BLOO1KIT60 XX (12:37)
[2023-08-05] MEDS ORDERED: INSLANTI SC (12:37)
[2023-08-05] MEDS ORDERED: AMLO1TAB23 PO (12:37)
[2023-08-05] MEDS ORDERED: ATO40T PO (12:37)
[2023-08-05] MEDS ORDERED: ASPI-325 PO (12:37)
[2023-08-05] MEDS ORDERED: FURO1TAB31 PO (12:37)
[2023-08-05] MEDS ORDERED: MET25T PO (12:37)
[2023-08-05] MEDS ORDERED: METF-929 PO ×2 (12:39)
[2023-08-05] MEDS ORDERED: GLIP10TA21 PO (12:42)
[2023-08-05 13:21] VITALS: BP 138/63; PULSE 91; TEMP 36.5
== END 2023-08-05 16:24 | disposition home or self-care (01) | DRG 190 ==
LOC: ER 11:12 → TELE 16:36 → TELE-WESTW 08-02 23:59
PROVIDERS: ADMIT Nurse Practitioner Family; ATTEND Internal Medicine Geriatric Medicine
DX: I21.4 Non-ST elevation (NSTEMI) myocardial infarction (principal); I50.33 Acute on chronic diastolic (congestive) heart failure; N17.9 Acute kidney failure, unspecified; E44.1 Mild protein-calorie malnutrition; E87.1 Hypo-osmolality and hyponatremia; D63.8 Anemia in other chronic diseases classified elsewhere; E11.22 Type 2 diabetes mellitus with diabetic chronic kidney disease; E11.65 Type 2 diabetes mellitus with hyperglycemia; E66.01 Morbid (severe) obesity due to excess calories; I13.0 Hypertensive heart and chronic kidney disease with heart failure and stage 1 through stage 4 chronic kidney disease, or unspecified chronic kidney disease; N18.30 Chronic kidney disease, stage 3 unspecified; F17.210 Nicotine dependence, cigarettes, uncomplicated; I16.0 Hypertensive urgency; E78.5 Hyperlipidemia, unspecified; N39.0 Urinary tract infection, site not specified; Z68.35 Body mass index [BMI] 35.0-35.9, adult; Z82.3 Family history of stroke; Z82.49 Family history of ischemic heart disease and other diseases of the circulatory system; Z83.3 Family history of diabetes mellitus; Z87.442 Personal history of urinary calculi; Z88.5 Allergy status to narcotic agent
CPT/HCPCS: 36415; 71045; 78582; 80048; 80053; 80061; 80307; 81001; 82962; 83036; 83735; 83880; 84443; 84484; 85025; 85379; 85652; 86141; 93005; 93306; 93970; 96361; 96372; 96374; 97116; 97163; 97530; 99291; G0378; J0153; J0696; J1815

== ENCOUNTER 2023-08-08 22:33 | Inpatient (IN) | payer MEDICAID ==
[~2023-08-08] VITALS: Ht 154.9 cm; Wt 98.1 kg
[~2023-08-08 22:33] MED LIST changes: +AMLO1TAB23 PO; +ASPI-325 PO; +ATO40T PO; +BLOO1KIT60 XX; -ERGO1CAP23 PO; +FURO1TAB31 PO; +GLIP10TA21 PO; -LEVO500T31 PO; -NAP500T PO; -TAMS-35 PO
[2023-08-08 23:16] LABS: Hematocrit 26.3 % (36.0-46.0); Hemoglobin 8.5 g/dL (12.2-16.2); Monocytes # (auto) 0.6 10 ^3/uL (0-1.3)
[2023-08-08 23:18] LABS: Basophils # (auto) 0 10 ^3/uL (0-0.2); Basophils % (auto) 0.4 % (0.0-2.0); Eosinophils # (auto) 0.2 10 ^3/uL (0-0.8); Eosinophils % (auto) 2.4 % (0.0-7.0); Lymphocytes # (auto) 2.7 10 ^3/uL (0.4-5.4); Mean Corpuscular Hemoglobin 26.4 pg (28.0-32.0); Mean Corpuscular Hgb Conc. 32.2 g/dL (32.0-36.0); Mean Corpuscular Volume 81.8 fL (80.0-100.0); Monocytes % (auto) 6.3 % (0.0-12.0); Neutrophils % (auto) 62.9 % (37.0-80.0); Nucleated Red Blood Cells % 0.1 %; Red Blood Cells 3.21 10^6/uL (4.0-5.20); Red Cell Distribution Width 16.9 % (11.8-14.3); White Blood Cell 9.6 10^3/uL (4.4-10.8)
[2023-08-08 23:29] LABS: INR 0.96 (0.9-1.15); Partial Thromboplastin Time 28.5 SEC (24.5-34.5); Prothrombin Time 10.1 sec (9.3-11.8)
[2023-08-08 23:34] LABS: Alanine Aminotransferase 22 U/L (7-40); Albumin 3.6 g/dL (3.2-4.8); Alkaline Phosphatase 117 U/L (46-116); Anion Gap 6 (5-15); Aspartate Aminotransferase 38 U/L (13-40); BUN/Creatinine Ratio 17.6 (10.0-20.0); Bilirubin, Total 0.2 mg/dL (0.2-1.0); Blood Urea Nitrogen 25 mg/dL (9-23); Calcium 8.7 mg/dL (8.7-10.4); Carbon Dioxide 24 mmol/L (20-30); Chloride 106 mmol/L (98-107); Glucose 182 mg/dL (74-106); Magnesium 2.4 mg/dL (1.6-2.6); Potassium 4.3 mmol/L (3.5-5.1); Sodium 136 mmol/L (136-145)
[2023-08-09 07:50] VITALS: PULSE 76; RESP 15; O2SAT 99
[2023-08-09] MEDS ORDERED: ONDANSETRON HCL 4 MG/2 ML VIAL IV PRN (08:15)
[2023-08-09] MEDS ORDERED: DEXTROSE (50%) 50ML SYRG IV PRN (08:15)
[2023-08-09] MEDS ORDERED: ACETAMINOPHEN 325 MG TAB PO PRN (08:15)
[2023-08-09] MEDS ORDERED: HYDROmorphone HCL 2 MG/ML VL/or syr IV ONE (08:15)
[2023-08-09] MEDS ORDERED: MORPHINE SULFATE INJ 2 MG/ml SYRG IV PRN (08:15)
[2023-08-09] MEDS ORDERED: NITROGLYCERIN 0.4 MG SL TAB SL PRN (08:15)
[2023-08-09] MEDS ORDERED: HYDROcodone-ACET 5/325MG TAB PO PRN (08:15)
[2023-08-09] MEDS ORDERED: hydrALAZINE HCL 20 MG/ML VL IV PRN (09:00)
[2023-08-09] MEDS: NIFEdipine ER 30 MG TAB PO SCH (10:12)
[2023-08-09] MEDS: METOPROLOL TARTRATE 25 MG TAB PO SCH ×2 (10:12→21:52)
[2023-08-09] MEDS ORDERED: ASPirin 81 mg TAB PO ONE (11:00)
[2023-08-09 11:01] LABS: % Iron Saturation 5.4 % (15-50)
[2023-08-09] MEDS: ACCU-CHEK COMFORT CURVE STRIP VI SCH ×3 (12:03→21:52)
[2023-08-09] MEDS: InsuLIN REG 1unit/0.01ml Soln (100units/ml) SC SCH ×3 (12:03→21:54)
[2023-08-09 12:35] LABS: Folate (Folic Acid) 14.59 ng/mL (>5.38)
[2023-08-09 15:13] LABS: Sodium Urine 28 mmol/L (40-220)
[2023-08-09 15:18] LABS: Urine Bacteria FEW /hpf (None Seen); Urine Blood 3+ /uL (Negative); Urine Clarity HAZY (Clear); Urine Mucus FEW (None Seen); Urine Protein, UAD 3+ (Negative); Urine Specific Gravity 1.016 (1.001-1.035); Urine Urobilinogen Normal (Negative); Urine WBC 74 /hpf (0 - 5)
[2023-08-09 15:19] LABS: Amphetamine Screen, Urine Neg (NEGATIVE)
[2023-08-09 15:20] LABS: Barbiturate Scree,Urine Neg (NEGATIVE); Benzodiazephine Screen, Urine Neg (NEGATIVE); Cannabinoid Screen, Urine Neg (NEGATIVE); Cocaine Screen, Urine Neg (NEGATIVE); Opiate Scree,Urine Neg (NEGATIVE); Phencyclidine Screen, Urine Neg (NEGATIVE)
[2023-08-09 15:21] LABS: Creatinine, Urine 93.55 mg/dL (30.0-125.0)
[2023-08-09 15:30] LABS: Urine Color Yellow (Yellow)
[2023-08-09] MEDS: FERROUS SULFATE 325mg EC TAB PO SCH (17:32)
[2023-08-09] MEDS: FUROSEMIDE 40 MG/4 ML VIAL IV SCH (17:32)
[2023-08-09] MEDS: MORPHINE SULFATE INJ 2 MG/ml SYRG IV PRN (17:39)
[2023-08-09] MEDS ORDERED: CYANOCOBALAMIN (B-12) 1000 MCG/1 ML VIAL IM ONE (19:15)
[2023-08-09] MEDS ORDERED: ERGOCALCIFEROL 50,000 UNIT(1.25MG) CAP PO SCH (19:15)
[2023-08-09 19:30] VITALS: PULSE 76; RESP 18; O2SAT 98
[2023-08-09] MEDS: ATORVASTATIN 20 MG TAB PO SCH (21:52)
[2023-08-09 23:19] VITALS: PULSE 73; RESP 18; O2SAT 98
[2023-08-10] VITALS (9 sets, daily range): BP systolic 116–133; BP diastolic 47–62; PULSE 63–79; RESP 18–20; TEMP 97.6–98.8; O2SAT 93–100
[2023-08-10] MEDS: FUROSEMIDE 40 MG/4 ML VIAL IV SCH (06:00)
[2023-08-10 06:08] LABS: Eosinophils # (auto) 0.2 10 ^3/uL (0-0.8); Eosinophils % (auto) 2.3 % (0.0-7.0); Hemoglobin 8.8 g/dL (12.2-16.2)
[2023-08-10 06:10] LABS: Basophils # (auto) 0 10 ^3/uL (0-0.2); Basophils % (auto) 0.3 % (0.0-2.0); Hematocrit 27.4 % (36.0-46.0); Lymphocytes # (auto) 2.9 10 ^3/uL (0.4-5.4); Lymphocytes % (auto) 30.6 % (10.0-50.0); Mean Corpuscular Hemoglobin 26.4 pg (28.0-32.0); Mean Corpuscular Hgb Conc. 32.1 g/dL (32.0-36.0); Mean Corpuscular Volume 82.3 fL (80.0-100.0); Monocytes # (auto) 0.7 10 ^3/uL (0-1.3); Neutrophils # (auto) 5.6 10 ^3/uL (1.6-8.6); Neutrophils % (auto) 59.8 % (37.0-80.0); Red Blood Cells 3.33 10^6/uL (4.0-5.20); Red Cell Distribution Width 16.2 % (11.8-14.3); White Blood Cell 9.4 10^3/uL (4.4-10.8)
[2023-08-10 06:25] LABS: Anion Gap 6 (5-15); Carbon Dioxide 25 mmol/L (20-30); Chloride 104 mmol/L (98-107); Potassium 4.4 mmol/L (3.5-5.1); Sodium 135 mmol/L (136-145)
[2023-08-10 06:26] LABS: Calcium 8.5 mg/dL (8.5-10.1)
[2023-08-10 06:31] LABS: BUN/Creatinine Ratio 18.3 (10.0-20.0); Blood Urea Nitrogen 28 mg/dL (9-23); Glucose 160 mg/dL (74-106)
[2023-08-10] MEDS: ACCU-CHEK COMFORT CURVE STRIP VI SCH ×4 (06:38→21:44)
[2023-08-10] MEDS: InsuLIN REG 1unit/0.01ml Soln (100units/ml) SC SCH ×4 (06:42→21:41)
[2023-08-10] MEDS: FERROUS SULFATE 325mg EC TAB PO SCH ×2 (07:55→17:43)
[2023-08-10] MEDS: cefTRIAXone 1GM/50ML D5W 50 ML IV SCH (08:08)
[2023-08-10] MEDS: MORPHINE SULFATE INJ 2 MG/ml SYRG IV PRN ×2 (08:39→16:42)
[2023-08-10] MEDS: METOPROLOL TARTRATE 25 MG TAB PO SCH ×2 (09:41→21:29)
[2023-08-10] MEDS: NIFEdipine ER 30 MG TAB PO SCH (09:41)
[2023-08-10] MEDS: CYANOCOBALAMIN 500 MCG TAB PO SCH (09:42)
[2023-08-10] MEDS ORDERED: ASPirin 81 mg TAB PO SCH (10:00)
[2023-08-10] MEDS ORDERED: ERGOCALCIFEROL 50,000 UNIT(1.25MG) CAP PO SCH (13:00)
[2023-08-10] MEDS: GABAPENTIN 100 MG CAP PO SCH ×3 (16:37→21:30)
[2023-08-10] MEDS: EMPAGLIFLOZIN 10 MG TAB PO SCH (16:37)
[2023-08-10] MEDS: ATORVASTATIN 20 MG TAB PO SCH (21:30)
[2023-08-11] MEDS: MORPHINE SULFATE INJ 2 MG/ml SYRG IV PRN (03:48)
[2023-08-11 05:00] VITALS: BP 135/37; PULSE 70; RESP 20; TEMP 98.5; O2SAT 99
[2023-08-11] MEDS: GABAPENTIN 100 MG CAP PO SCH ×2 (06:16→14:23)
[2023-08-11] MEDS: ACCU-CHEK COMFORT CURVE STRIP VI SCH ×3 (06:19→17:00)
[2023-08-11] MEDS: EMPAGLIFLOZIN 10 MG TAB PO SCH (06:19)
[2023-08-11] MEDS: InsuLIN REG 1unit/0.01ml Soln (100units/ml) SC SCH ×3 (06:48→17:00)
[2023-08-11 07:25] LABS: Eosinophils # (auto) 0.2 10 ^3/uL (0-0.8); Lymphocytes # (auto) 2.9 10 ^3/uL (0.4-5.4); Mean Corpuscular Hemoglobin 26.2 pg (28.0-32.0); Mean Corpuscular Hgb Conc. 31.9 g/dL (32.0-36.0); Monocytes # (auto) 0.6 10 ^3/uL (0-1.3); Red Cell Distribution Width 16.3 % (11.8-14.3)
[2023-08-11 07:26] LABS: Chloride 107 mmol/L (98-107); Potassium 4.2 mmol/L (3.5-5.1)
[2023-08-11 07:27] LABS: Anion Gap 5 (5-15); Basophils # (auto) 0 10 ^3/uL (0-0.2); Basophils % (auto) 0.5 % (0.0-2.0); Carbon Dioxide 26 mmol/L (20-30); Eosinophils % (auto) 2.2 % (0.0-7.0); Hematocrit 27.3 % (36.0-46.0); Hemoglobin 8.7 g/dL (12.2-16.2); Lymphocytes % (auto) 32.2 % (10.0-50.0); Mean Corpuscular Volume 81.9 fL (80.0-100.0); Monocytes % (auto) 6.5 % (0.0-12.0); Neutrophils # (auto) 5.3 10 ^3/uL (1.6-8.6); Neutrophils % (auto) 58.6 % (37.0-80.0); Red Blood Cells 3.33 10^6/uL (4.0-5.20); Sodium 138 mmol/L (136-145); White Blood Cell 9.1 10^3/uL (4.4-10.8)
[2023-08-11 07:28] LABS: Calcium 9.1 mg/dL (8.5-10.1)
[2023-08-11 07:33] LABS: BUN/Creatinine Ratio 19.1 (10.0-20.0); Blood Urea Nitrogen 26 mg/dL (9-23); Glucose 160 mg/dL (74-106)
[2023-08-11 08:00] VITALS: PULSE 70; RESP 20; O2SAT 97
[2023-08-11 09:00] VITALS: BP 144/62; PULSE 72; RESP 20; TEMP 98.3; O2SAT 97
[2023-08-11] MEDS ORDERED: LIDOCAINE 5% TOPICAL PATCH TOP SCH (10:00)
[2023-08-11] MEDS: cefTRIAXone 1GM/50ML D5W 50 ML IV SCH (10:42)
[2023-08-11] MEDS: FERROUS SULFATE 325mg EC TAB PO SCH ×2 (10:43→18:00)
[2023-08-11] MEDS: CYANOCOBALAMIN 500 MCG TAB PO SCH (10:43)
[2023-08-11] MEDS: METOPROLOL TARTRATE 25 MG TAB PO SCH (10:44)
[2023-08-11] MEDS: NIFEdipine ER 30 MG TAB PO SCH (10:44)
[2023-08-11] MEDS ORDERED: CYAN500T3 PO (11:08)
[2023-08-11] MEDS ORDERED: FER325T PO (11:08)
[2023-08-11] MEDS ORDERED: EMPA1TAB PO (11:08)
[2023-08-11] MEDS ORDERED: ERGO1CAP23 PO (11:08)
[2023-08-11] MEDS ORDERED: CEPH250C PO (11:10)
[2023-08-11 13:00] VITALS: BP 149/73; PULSE 71; RESP 20; TEMP 98.5; O2SAT 96
[2023-08-11 16:56] VITALS: BP 149/73; PULSE 71; RESP 20; TEMP 98.5; O2SAT 96
== END 2023-08-11 18:37 | disposition home or self-care (01) | DRG 199 ==
LOC: EDBD 22:33 → ER 22:33 → TELE 08-09 08:13 → TELE-WESTW 08-09 22:43
PROVIDERS: ADMIT Internal Medicine; ATTEND Internal Medicine
DX: I16.1 Hypertensive emergency (principal); N17.0 Acute kidney failure with tubular necrosis; E11.22 Type 2 diabetes mellitus with diabetic chronic kidney disease; D63.1 Anemia in chronic kidney disease; I13.0 Hypertensive heart and chronic kidney disease with heart failure and stage 1 through stage 4 chronic kidney disease, or unspecified chronic kidney disease; I50.32 Chronic diastolic (congestive) heart failure; N18.31 Chronic kidney disease, stage 3a; E55.9 Vitamin D deficiency, unspecified; E11.65 Type 2 diabetes mellitus with hyperglycemia; E78.5 Hyperlipidemia, unspecified; N92.0 Excessive and frequent menstruation with regular cycle; N39.0 Urinary tract infection, site not specified; E66.9 Obesity, unspecified; F17.210 Nicotine dependence, cigarettes, uncomplicated; N83.201 Unspecified ovarian cyst, right side; Z88.5 Allergy status to narcotic agent; Z90.49 Acquired absence of other specified parts of digestive tract; I25.2 Old myocardial infarction; Z87.442 Personal history of urinary calculi; Z68.41 Body mass index [BMI] 40.0-44.9, adult; Z81.1 Family history of alcohol abuse and dependence; Z83.3 Family history of diabetes mellitus; Z82.3 Family history of stroke; Z82.49 Family history of ischemic heart disease and other diseases of the circulatory system
CPT/HCPCS: 36415; 71045; 76775; 76830; 76856; 80048; 80053; 80307; 81001; 82306; 82570; 82607; 82746; 82962; 83540; 83550; 83615; 83735; 83880; 83970; 84100; 84300; 84484; 85025; 85610; 85730; 87086; 93005; G0378; J0696; J1815; J2405

== ENCOUNTER 2023-11-19 17:41 | Inpatient (IN) | payer MEDICAID ==
[~2023-11-19] VITALS: Ht 154.9 cm; Wt 82.7 kg
[~2023-11-19 17:41] MED LIST changes: +CEPH250C PO; +CYAN500T3 PO; +EMPA1TAB PO; +ERGO1CAP23 PO; +FER325T PO; -GLIP10TA9 PO
[2023-11-19 19:20] LABS: Basophils # (auto) 0 10 ^3/uL (0-0.2); Basophils % (auto) 0.5 % (0.0-2.0); Eosinophils # (auto) 0.2 10 ^3/uL (0-0.8); Eosinophils % (auto) 2.7 % (0.0-7.0); Hematocrit 33.7 % (36.0-46.0); Hemoglobin 11.2 g/dL (12.2-16.2); Lymphocytes # (auto) 1.9 10 ^3/uL (0.4-5.4); Mean Corpuscular Hemoglobin 28.1 pg (28.0-32.0); Mean Corpuscular Hgb Conc. 33.1 g/dL (32.0-36.0); Mean Corpuscular Volume 84.9 fL (80.0-100.0); Monocytes # (auto) 0.5 10 ^3/uL (0-1.3); Monocytes % (auto) 5.5 % (0.0-12.0); Neutrophils # (auto) 5.7 10 ^3/uL (1.6-8.6); Neutrophils % (auto) 68.3 % (37.0-80.0); Nucleated Red Blood Cells % 0.1 %; Red Blood Cells 3.97 10^6/uL (4.0-5.20); Red Cell Distribution Width 15.1 % (11.8-14.3); White Blood Cell 8.3 10^3/uL (4.4-10.8)
[2023-11-19 19:29] LABS: Chloride 104 mmol/L (98-107); Potassium 4.2 mmol/L (3.5-5.1); Sodium 133 mmol/L (136-145)
[2023-11-19 19:30] LABS: Anion Gap 5 (5-15); Calcium 8.6 mg/dL (8.7-10.4); Carbon Dioxide 24 mmol/L (20-30)
[2023-11-19 19:35] LABS: BUN/Creatinine Ratio 11.1 (10.0-20.0); Blood Urea Nitrogen 15 mg/dL (9-23); Glucose 397 mg/dL (74-106)
[2023-11-19 19:37] LABS: INR 0.93 (0.9-1.15); Partial Thromboplastin Time 30.8 SEC (24.5-34.5); Prothrombin Time 9.8 sec (9.3-11.8)
[2023-11-19 19:38] LABS: Alanine Aminotransferase 13 U/L (7-40); Albumin 3.7 g/dL (3.2-4.8); Alkaline Phosphatase 93 U/L (46-116); Anion Gap 6 (5-15); Aspartate Aminotransferase 12 U/L (13-40); BUN/Creatinine Ratio 13.3 (10.0-20.0); Bilirubin, Total 0.2 mg/dL (0.2-1.0); Blood Urea Nitrogen 18 mg/dL (9-23); Calcium 8.6 mg/dL (8.7-10.4); Carbon Dioxide 24 mmol/L (20-30); Chloride 103 mmol/L (98-107); Glucose 396 mg/dL (74-106); Lipase 51 U/L (12-53); Magnesium 2.1 mg/dL (1.6-2.6); Potassium 4.5 mmol/L (3.5-5.1); Sodium 133 mmol/L (136-145); Total Protein 5.9 g/dL (5.7-8.2)
[2023-11-19 19:55] LABS: Urine Bacteria NONE SEEN /hpf (None Seen); Urine Blood 1+ /uL (Negative); Urine Clarity HAZY (Clear); Urine Color Colorless (Yellow); Urine Protein, UAD 3+ (Negative); Urine Specific Gravity 1.019 (1.001-1.035); Urine Urobilinogen Normal (Negative); Urine WBC 55 /hpf (0 - 5); Urine pH 6.5 (5.0-8.0)
[2023-11-19 21:45] VITALS: PULSE 84; RESP 20; O2SAT 98
[2023-11-19] MEDS ORDERED: DEXTROSE (50%) 50ML SYRG IV PRN (21:45)
[2023-11-19] MEDS ORDERED: DOCUSATE SOD 100 MG CAP PO PRN (21:45)
[2023-11-19] MEDS: ONDANSETRON HCL 4 MG/2 ML VIAL IV ONE (21:56)
[2023-11-19] MEDS: PANTOPRAZOLE 80 MG in SODIUM CHL 0.9% 100 ML IV ONE (21:57)
[2023-11-19] MEDS: PANTOPRAZOLE 40mg/50ML NS AE 50 ML IV ONE (21:57)
[2023-11-19] MEDS: IOHEXOL 300 MG/ML 100ML BOTTLE IJ ONE (22:00)
[2023-11-19] MEDS: PANTOPRAZOLE 40 MG/10 ML VIAL INJ IV ONE (22:00)
[2023-11-19] MEDS: SODIUM CHLORIDE 0.9% 1,000 ML IVB ONE (22:10)
[2023-11-19] MEDS: LACTATED RINGER'S 1,000 ML IV ONE (22:11)
[2023-11-19] MEDS ORDERED: NITROGLYCERIN 0.4 MG SL TAB SL PRN (22:30)
[2023-11-19] MEDS ORDERED: MORPHINE SULFATE INJ 2 MG/ml SYRG IV PRN (22:30)
[2023-11-19] MEDS: SODIUM CHLORIDE 0.9% 1,000 ML IV SCH (22:44)
[2023-11-19] MEDS: cefTRIAXone 1GM/50ML D5W 50 ML IV ONE (22:47)
[2023-11-19] MEDS: InsuLIN REG 1unit/0.01ml Soln (100units/ml) IV ONE (22:50)
[2023-11-19] MEDS: ACCU-CHEK COMFORT CURVE STRIP VI SCH (23:48)
[2023-11-19] MEDS: InsuLIN REG 1unit/0.01ml Soln (100units/ml) SC SCH (23:48)
[2023-11-19] MEDS: HYDROmorphone HCL 2 MG/ML VL/or syr IV PRN (23:57)
[2023-11-20 05:46] LABS: Basophils # (auto) 0.1 10 ^3/uL (0-0.2); Basophils % (auto) 0.5 % (0.0-2.0); Eosinophils # (auto) 0.2 10 ^3/uL (0-0.8); Eosinophils % (auto) 1.9 % (0.0-7.0); Hematocrit 32.9 % (36.0-46.0); Hemoglobin 10.8 g/dL (12.2-16.2); Lymphocytes # (auto) 3.7 10 ^3/uL (0.4-5.4); Lymphocytes % (auto) 37.6 % (10.0-50.0); Mean Corpuscular Hemoglobin 28.1 pg (28.0-32.0); Mean Corpuscular Hgb Conc. 32.8 g/dL (32.0-36.0); Mean Corpuscular Volume 85.6 fL (80.0-100.0); Monocytes # (auto) 0.6 10 ^3/uL (0-1.3); Monocytes % (auto) 6.3 % (0.0-12.0); Neutrophils # (auto) 5.2 10 ^3/uL (1.6-8.6); Neutrophils % (auto) 53.7 % (37.0-80.0); Red Blood Cells 3.85 10^6/uL (4.0-5.20); Red Cell Distribution Width 15.5 % (11.8-14.3); White Blood Cell 9.8 10^3/uL (4.4-10.8)
[2023-11-20 05:51] LABS: Alanine Aminotransferase 13 U/L (7-40); Albumin 3.7 g/dL (3.2-4.8); Alkaline Phosphatase 88 U/L (46-116); Anion Gap 8 (5-15); Aspartate Aminotransferase 21 U/L (13-40); BUN/Creatinine Ratio 10.9 (10.0-20.0); Blood Urea Nitrogen 13 mg/dL (9-23); Calcium 8.5 mg/dL (8.7-10.4); Carbon Dioxide 20 mmol/L (20-30); Chloride 109 mmol/L (98-107); Glucose 181 mg/dL (74-106); Potassium 4.1 mmol/L (3.5-5.1); Sodium 137 mmol/L (136-145)
[2023-11-20 05:52] LABS: Bilirubin, Total 0.3 mg/dL (0.2-1.0); Total Protein 6.3 g/dL (5.7-8.2)
[2023-11-20 08:21] VITALS: PULSE 76; RESP 20; O2SAT 100
[2023-11-20] MEDS: cefTRIAXone 1GM/50ML D5W 50 ML IV SCH (09:08)
[2023-11-20] MEDS: ACETAMINOPHEN 325 MG TAB PO PRN (10:24)
[2023-11-20] MEDS: PANTOPRAZOLE 40 MG/10 ML VIAL INJ IV SCH (10:28)
[2023-11-20 12:08] LABS: Hematocrit 30.3 % (36.0-46.0); Hemoglobin 9.9 g/dL (12.2-16.2)
[2023-11-20 16:00] VITALS: PULSE 83; RESP 15; O2SAT 93
[2023-11-20] MEDS: ONDANSETRON HCL 4 MG/2 ML VIAL IV PRN (16:43)
[2023-11-20 17:47] LABS: Hematocrit 29.7 % (36.0-46.0); Hemoglobin 9.7 g/dL (12.2-16.2)
[2023-11-20] MEDS ORDERED: METF-370 PO (18:56)
[2023-11-20 20:00] VITALS: PULSE 73; RESP 18; O2SAT 98
[2023-11-20 22:00] VITALS: BP 141/70; PULSE 73; RESP 18; TEMP 98.6; O2SAT 98
[2023-11-20 23:27] LABS: Hemoglobin 10.1 g/dL (12.2-16.2)
[2023-11-21] VITALS (7 sets, daily range): BP systolic 120–151; BP diastolic 47–68; PULSE 74–85; RESP 16–20; TEMP 97.3–98.7; O2SAT 97–99
[2023-11-21] MEDS: hydrALAZINE HCL 20 MG/ML VL IV PRN (01:22)
[2023-11-21 05:35] LABS: Basophils # (auto) 0 10 ^3/uL (0-0.2); Basophils % (auto) 0.5 % (0.0-2.0); Eosinophils # (auto) 0.1 10 ^3/uL (0-0.8); Eosinophils % (auto) 1.3 % (0.0-7.0); Hematocrit 27.8 % (36.0-46.0); Hemoglobin 9.4 g/dL (12.2-16.2); Lymphocytes # (auto) 2.4 10 ^3/uL (0.4-5.4); Mean Corpuscular Hemoglobin 28.9 pg (28.0-32.0); Mean Corpuscular Hgb Conc. 33.7 g/dL (32.0-36.0); Mean Corpuscular Volume 85.5 fL (80.0-100.0); Monocytes # (auto) 0.5 10 ^3/uL (0-1.3); Monocytes % (auto) 5.8 % (0.0-12.0); Neutrophils # (auto) 5.8 10 ^3/uL (1.6-8.6); Neutrophils % (auto) 65.4 % (37.0-80.0); Red Blood Cells 3.25 10^6/uL (4.0-5.20); Red Cell Distribution Width 15.1 % (11.8-14.3); White Blood Cell 8.9 10^3/uL (4.4-10.8)
[2023-11-21 05:51] LABS: Alanine Aminotransferase 10 U/L (7-40); Alkaline Phosphatase 71 U/L (46-116); Anion Gap 7 (5-15); Aspartate Aminotransferase 14 U/L (13-40); BUN/Creatinine Ratio 9.6 (10.0-20.0); Blood Urea Nitrogen 11 mg/dL (9-23); Calcium 7.8 mg/dL (8.7-10.4); Carbon Dioxide 19 mmol/L (20-30); Chloride 110 mmol/L (98-107); Glucose 145 mg/dL (74-106); Potassium 3.7 mmol/L (3.5-5.1); Sodium 136 mmol/L (136-145)
[2023-11-21 05:52] LABS: Bilirubin, Total 0.2 mg/dL (0.2-1.0); Total Protein 5.2 g/dL (5.7-8.2)
[2023-11-21] MEDS ORDERED: DEXTROSE (50%) 50ML SYRG IV PRN (10:00)
[2023-11-21] MEDS: MULTIPLE VITAMIN TAB PO SCH (10:30)
[2023-11-21] MEDS: PANTOPRAZOLE 40 MG TAB PO SCH (10:30)
[2023-11-21] MEDS: ACCU-CHEK COMFORT CURVE STRIP VI SCH (11:33)
[2023-11-21] MEDS: SUCRALFATE 1 GM/10 ML ORAL SUSP GT SCH (11:33)
[2023-11-21] MEDS: InsuLIN REG 1unit/0.01ml Soln (100units/ml) SC SCH ×2 (11:38→21:59)
[2023-11-22] MEDS ORDERED: GABA-1250 PO (02:56)
[2023-11-22 05:00] VITALS: BP 128/44; PULSE 85; RESP 18; TEMP 98.2; O2SAT 94
[2023-11-22 05:48] LABS: Basophils # (auto) 0.1 10 ^3/uL (0-0.2); Basophils % (auto) 0.7 % (0.0-2.0); Eosinophils # (auto) 0.2 10 ^3/uL (0-0.8); Eosinophils % (auto) 2.9 % (0.0-7.0); Hematocrit 27.1 % (36.0-46.0); Lymphocytes # (auto) 2.9 10 ^3/uL (0.4-5.4); Lymphocytes % (auto) 33.5 % (10.0-50.0); Mean Corpuscular Hemoglobin 28.8 pg (28.0-32.0); Mean Corpuscular Hgb Conc. 33.2 g/dL (32.0-36.0); Mean Corpuscular Volume 86.9 fL (80.0-100.0); Monocytes # (auto) 0.6 10 ^3/uL (0-1.3); Monocytes % (auto) 6.7 % (0.0-12.0); Neutrophils # (auto) 4.8 10 ^3/uL (1.6-8.6); Neutrophils % (auto) 56.2 % (37.0-80.0); Red Blood Cells 3.11 10^6/uL (4.0-5.20); White Blood Cell 8.6 10^3/uL (4.4-10.8)
[2023-11-22 06:01] LABS: Chloride 110 mmol/L (98-107); Potassium 4.4 mmol/L (3.5-5.1); Sodium 135 mmol/L (136-145)
[2023-11-22 06:02] LABS: Anion Gap 4 (5-15); Calcium 8.3 mg/dL (8.5-10.1); Carbon Dioxide 21 mmol/L (20-30)
[2023-11-22 06:07] LABS: BUN/Creatinine Ratio 8.8 (10.0-20.0); Blood Urea Nitrogen 12 mg/dL (9-23); Glucose 241 mg/dL (74-106)
[2023-11-22] MEDS: THIAMINE HCL 100 MG TAB PO SCH (08:48)
[2023-11-22 09:00] VITALS: BP 150/57; PULSE 82; RESP 17; TEMP 98.5; O2SAT 97
[2023-11-22] MEDS ORDERED: SODIUM CHLORIDE LOCK 10 ML ONE (10:17)
[2023-11-22] MEDS ORDERED: SIMETHICONE 40 MG/0.6 ML ORAL DROP ONE (10:22)
[2023-11-22] MEDS: METOCLOPRAMIDE HCL 5MG/ml INJ 2ml VIAL ONE (10:25)
[2023-11-22] MEDS: METOCLOPRAMIDE HCL 5MG/ml INJ 2ml VIAL IV ONE (10:30)
[2023-11-22 10:33] VITALS: PULSE 77; RESP 20; O2SAT 99
[2023-11-22] MEDS: LIDOCAINE VISCOUS 2% 15ML UD ONE (10:37)
[2023-11-22] MEDS: diphenhdrAMINE HCL 50 MG/1 ML VL ONE (10:38)
[2023-11-22] MEDS: MIDAZOLAM HCL 5 MG/ML-1ML VIAL ONE (10:38)
[2023-11-22] MEDS: fentaNYL CITRATE 100 MCG/2 ML VL ONE (10:38)
[2023-11-22 10:48] VITALS: O2SAT 92
[2023-11-22 13:00] VITALS: BP 113/37; PULSE 71; RESP 17; TEMP 98.4; O2SAT 93
[2023-11-22] MEDS ORDERED: METO5TAB67 PO (13:08)
[2023-11-22] MEDS ORDERED: AUG875T PO (13:08)
[2023-11-22] MEDS ORDERED: PANT40TA2 PO (13:08)
[2023-11-22] MEDS: METOCLOPRAMIDE HCL 5MG/ml INJ 2ml VIAL IV SCH (13:58)
== END 2023-11-22 17:18 | disposition home or self-care (01) | DRG 241 ==
LOC: ER 17:41 → OVERFLOW 22:25 → EAST 11-20 18:32
PROVIDERS: ADMIT Nurse Practitioner Family; ATTEND Nurse Practitioner Acute Care
PROC: 0DB68ZX Excision of Stomach, Via Natural or Artificial Opening Endoscopic, Diagnostic (ICD-10-PCS; 2023-11-22)
PROC: 0DB98ZX Excision of Duodenum, Via Natural or Artificial Opening Endoscopic, Diagnostic (ICD-10-PCS; principal; 2023-11-22 10:33)
DX: K29.70 Gastritis, unspecified, without bleeding (principal); E11.22 Type 2 diabetes mellitus with diabetic chronic kidney disease; I13.0 Hypertensive heart and chronic kidney disease with heart failure and stage 1 through stage 4 chronic kidney disease, or unspecified chronic kidney disease; E87.1 Hypo-osmolality and hyponatremia; I50.9 Heart failure, unspecified; N30.90 Cystitis, unspecified without hematuria; D64.9 Anemia, unspecified; E11.43 Type 2 diabetes mellitus with diabetic autonomic (poly)neuropathy; K31.84 Gastroparesis; E11.65 Type 2 diabetes mellitus with hyperglycemia; F17.210 Nicotine dependence, cigarettes, uncomplicated; K20.90 Esophagitis, unspecified without bleeding; E66.9 Obesity, unspecified; N18.30 Chronic kidney disease, stage 3 unspecified; N88.8 Other specified noninflammatory disorders of cervix uteri; F10.20 Alcohol dependence, uncomplicated; Z68.34 Body mass index [BMI] 34.0-34.9, adult; I25.2 Old myocardial infarction; Z88.5 Allergy status to narcotic agent; Z87.442 Personal history of urinary calculi
CPT/HCPCS: 36415; 74177; 76856; 80048; 80053; 81001; 82010; 82962; 83036; 83690; 83735; 83880; 84702; 85014; 85018; 85025; 85610; 85730; 87086; 93005; 96365; 96375; C9113; G0378; J1815; J2250; J2405

== ENCOUNTER 2024-07-06 15:29 | Emergency (ER) | payer MEDICAID ==
[~2024-07-06] VITALS: Ht 154.9 cm; Wt 77.4 kg
[~2024-07-06 15:29] MED LIST changes: -AMLO1TAB23 PO; -ATO40T PO; +ATOR-507 PO; +ATOR20TA50 PO; -CEPH250C PO; -CYAN500T3 PO; -ERGO1CAP23 PO; +GABA-1250 PO; -GLIP10TA21 PO; +INSREGI SC; +INSU-1639 XX; +LANC28MI44 XX; +METO5TAB2 PO; +NAPR-957 PO; +PANT40TA2 PO
[2024-07-06 15:46] VITALS: BP 178/76; PULSE 91; RESP 20; O2SAT 98
[2024-07-06] MEDS: SODIUM CHLORIDE 0.9% 1,000 ML IV ONE (15:52)
[2024-07-06] MEDS: ONDANSETRON HCL 4 MG/2 ML VIAL IV ONE (15:55)
[2024-07-06 16:09] LABS: Basophils # (auto) 0.1 10 ^3/uL (0-0.2); Eosinophils # (auto) 0.2 10 ^3/uL (0-0.8); Eosinophils % (auto) 2.4 % (0.0-7.0); Hematocrit 32.3 % (36.0-46.0); Hemoglobin 10.5 g/dL (12.2-16.2); Lymphocytes # (auto) 2.6 10 ^3/uL (0.4-5.4); Lymphocytes % (auto) 29.8 % (10.0-50.0); Mean Corpuscular Hemoglobin 27.5 pg (28.0-32.0); Mean Corpuscular Hgb Conc. 32.4 g/dL (32.0-36.0); Mean Corpuscular Volume 84.7 fL (80.0-100.0); Monocytes # (auto) 0.5 10 ^3/uL (0-1.3); Monocytes % (auto) 5.9 % (0.0-12.0); Neutrophils # (auto) 5.3 10 ^3/uL (1.6-8.6); Neutrophils % (auto) 60.9 % (37.0-80.0); Nucleated Red Blood Cells % 0.1 %; Platelet Count (auto) 425 10^3/uL (140-450); Red Blood Cells 3.81 10^6/uL (4.0-5.20); Red Cell Distribution Width 16.2 % (11.8-14.3); White Blood Cell 8.7 10^3/uL (4.4-10.8)
[2024-07-06 16:22] LABS: Chloride 101 mmol/L (98-107); Potassium 3.8 mmol/L (3.5-5.1); Sodium 129 mmol/L (136-145)
[2024-07-06 16:23] LABS: Anion Gap 6 (5-15); Calcium 8.8 mg/dL (8.7-10.4); Carbon Dioxide 22 mmol/L (20-31)
[2024-07-06 16:28] LABS: BUN/Creatinine Ratio 10.9 (10.0-20.0); Blood Urea Nitrogen 21 mg/dL (9-23)
[2024-07-06 16:35] LABS: Glucose 579 mg/dL (74-106)
== END 2024-07-06 18:15 | disposition left against medical advice (07) ==
LOC: ER 15:29
DX: E11.65 Type 2 diabetes mellitus with hyperglycemia (principal); E11.22 Type 2 diabetes mellitus with diabetic chronic kidney disease; I13.0 Hypertensive heart and chronic kidney disease with heart failure and stage 1 through stage 4 chronic kidney disease, or unspecified chronic kidney disease; N18.9 Chronic kidney disease, unspecified; I50.9 Heart failure, unspecified; F12.10 Cannabis abuse, uncomplicated; F10.10 Alcohol abuse, uncomplicated; I25.2 Old myocardial infarction; F17.210 Nicotine dependence, cigarettes, uncomplicated; Z79.4 Long term (current) use of insulin; Z87.442 Personal history of urinary calculi; Z79.82 Long term (current) use of aspirin; Z79.899 Other long term (current) drug therapy; Z88.5 Allergy status to narcotic agent; Z90.49 Acquired absence of other specified parts of digestive tract
CPT/HCPCS: 36415; 80048; 82010; 82962; 84484; 85025; 96361; 96374; 99283; J2405; J7030

== ENCOUNTER 2024-07-19 17:04 | Inpatient (IN) | payer MEDICAID ==
[~2024-07-19] VITALS: Ht 154.9 cm; Wt 97.8 kg
[2024-07-19] MEDS: FUROSEMIDE 40 MG/4 ML VIAL IV ONE (17:15)
[2024-07-19 17:47] LABS: Basophils # (auto) 0 10 ^3/uL (0-0.2); Basophils % (auto) 0.5 % (0.0-2.0); Eosinophils # (auto) 0.2 10 ^3/uL (0-0.8); Eosinophils % (auto) 1.8 % (0.0-7.0); Hematocrit 33.5 % (36.0-46.0); Hemoglobin 11.1 g/dL (12.2-16.2); Lymphocytes # (auto) 2.1 10 ^3/uL (0.4-5.4); Lymphocytes % (auto) 22.6 % (10.0-50.0); Mean Corpuscular Hemoglobin 28.7 pg (28.0-32.0); Mean Corpuscular Hgb Conc. 33.2 g/dL (32.0-36.0); Mean Corpuscular Volume 86.5 fL (80.0-100.0); Monocytes # (auto) 0.5 10 ^3/uL (0-1.3); Monocytes % (auto) 5.4 % (0.0-12.0); Neutrophils # (auto) 6.5 10 ^3/uL (1.6-8.6); Neutrophils % (auto) 69.7 % (37.0-80.0); Nucleated Red Blood Cells % 0.1 %; Platelet Count (auto) 448 10^3/uL (140-450); Red Blood Cells 3.87 10^6/uL (4.0-5.20); Red Cell Distribution Width 15.8 % (11.8-14.3); White Blood Cell 9.3 10^3/uL (4.4-10.8)
[2024-07-19 17:52] LABS: Alanine Aminotransferase 19 U/L (7-40); Albumin 3.6 g/dL (3.2-4.8); Alkaline Phosphatase 160 U/L (46-116); Anion Gap 2 (5-15); BUN/Creatinine Ratio 10.3 (10.0-20.0); Bilirubin, Total < 0.2 mg/dL (0.2-1.0); Blood Urea Nitrogen 20 mg/dL (9-23); Calcium 8.3 mg/dL (8.7-10.4); Carbon Dioxide 20 mmol/L (20-31); Chloride 99 mmol/L (98-107); Lipase 63 U/L (12-53); Magnesium 2.1 mg/dL (1.6-2.6); Potassium 3.9 mmol/L (3.5-5.1); Sodium 121 mmol/L (136-145)
[2024-07-19 17:53] LABS: Total Protein 6.1 g/dL (5.7-8.2)
[2024-07-19 17:56] LABS: Base Excess -6.8 mmol/L (-2.0-3.0)
[2024-07-19 18:03] LABS: Aspartate Aminotransferase 21 U/L (13-40)
[2024-07-19 18:04] LABS: Glucose 724 mg/dL (74-106)
[2024-07-19] MEDS: SODIUM CHLORIDE 0.9% 500 ML IV ONE (18:15)
[2024-07-19 18:36] VITALS: PULSE 82; RESP 16; O2SAT 98
[2024-07-19 18:36] LABS: Urine Bacteria None Seen /hpf (None Seen)
[2024-07-19] MEDS: InsuLIN REG 1unit/0.01ml Soln (100units/ml) IV ONE (18:41)
[2024-07-19 19:25] VITALS: PULSE 80; RESP 25; O2SAT 96
[2024-07-19 19:35] LABS: Urine Blood 1+ /uL (Negative); Urine Clarity Turbid (Clear); Urine Color Colorless (Yellow); Urine Protein, UAD 2+ (Negative); Urine Urobilinogen Normal (Negative); Urine WBC 141 /hpf (0 - 5)
[2024-07-19] MEDS: fentaNYL CITRATE 100 MCG/2 ML VL IV ONE (21:34)
[2024-07-19] MEDS: cefTRIAXone 1GM/50ML D5W 50 ML IV ONE (21:35)
[2024-07-19] MEDS ORDERED: NITROGLYCERIN 0.4 MG SL TAB SL PRN ×2 (21:45→22:15)
[2024-07-19] MEDS ORDERED: DOCUSATE SOD 100 MG CAP PO PRN ×2 (21:45→22:15)
[2024-07-19] MEDS ORDERED: ENOXAPARIN SOD 40 MG/0.4 ML SYRINGE SC SCH (21:45)
[2024-07-19] MEDS ORDERED: ONDANSETRON HCL 4 MG/2 ML VIAL IV PRN (21:45)
[2024-07-19] MEDS ORDERED: MORPHINE SULFATE INJ 2 MG/ml SYRG IV PRN ×3 (21:45→22:45)
[2024-07-19] MEDS ORDERED: ACETAMINOPHEN 325 MG TAB PO PRN (21:45)
[2024-07-19] MEDS ORDERED: hydrALAZINE HCL 20 MG/ML VL IV SCH (22:00)
[2024-07-19] MEDS ORDERED: ACCU-CHEK COMFORT CURVE STRIP VI SCH (22:00)
[2024-07-19] MEDS ORDERED: SODIUM CHLOR 0.9% PF (SALINE LOCK) 10ML VIAL/SYR IV SCH (22:00)
[2024-07-19] MEDS ORDERED: InsuLIN REG 1unit/0.01ml Soln (100units/ml) SC SCH (22:00)
[2024-07-19] MEDS ORDERED: DEXTROSE (50%) 50ML SYRG IV PRN ×2 (22:00→22:15)
[2024-07-19 22:26] LABS: INR 0.91 (0.9-1.15); Prothrombin Time 9.7 sec (9.3-11.8)
[2024-07-19] MEDS: FUROSEMIDE 40 MG/4 ML VIAL IV SCH (23:07)
[2024-07-19] MEDS: PANTOPRAZOLE 40 MG TAB PO ONE (23:07)
[2024-07-20] MEDS: hydrALAZINE HCL 20 MG/ML VL IV SCH
[2024-07-20] MEDS: ERGOCALCIFEROL 50,000 UNIT(1.25MG) CAP PO SCH (01:02)
[2024-07-20] MEDS: ONDANSETRON HCL 4 MG/2 ML VIAL IV PRN (03:38)
[2024-07-20] MEDS: MORPHINE SULFATE INJ 2 MG/ml SYRG IV PRN (03:44)
[2024-07-20] MEDS: SODIUM CHLOR 0.9% PF (SALINE LOCK) 10ML VIAL/SYR IV SCH (06:00)
[2024-07-20] MEDS: ACCU-CHEK COMFORT CURVE STRIP VI SCH (07:00)
[2024-07-20] MEDS ORDERED: INSULIN LANTUS (GLARGINE) 1 /0.01ml (100units/ml) SC SCH (07:00)
[2024-07-20] MEDS ORDERED: InsuLIN REG 1unit/0.01ml Soln (100units/ml) SC SCH (07:00)
[2024-07-20] MEDS: INSULIN LANTUS (GLARGINE) 1 /0.01ml (100units/ml) SC SCH (07:00)
[2024-07-20] MEDS: InsuLIN REG 1unit/0.01ml Soln (100units/ml) SC SCH ×2 (07:00→20:56)
[2024-07-20] MEDS: PANTOPRAZOLE 40 MG TAB PO SCH ×2 (07:38→10:22)
[2024-07-20] MEDS: SODIUM CHLORIDE 0.9% 1,000 ML IV SCH (08:54)
[2024-07-20 09:56] LABS: Amphetamine Screen, Urine Neg (NEGATIVE); Barbiturate Scree,Urine Neg (NEGATIVE)
[2024-07-20 09:57] LABS: Benzodiazephine Screen, Urine Neg (NEGATIVE); Cannabinoid Screen, Urine Neg (NEGATIVE); Cocaine Screen, Urine Neg (NEGATIVE); Opiate Scree,Urine Neg (NEGATIVE); Phencyclidine Screen, Urine Neg (NEGATIVE)
[2024-07-20] MEDS ORDERED: cefTRIAXone 1GM/50ML D5W 50 ML IV SCH (10:00)
[2024-07-20] MEDS ORDERED: FUROSEMIDE 40 MG TAB PO SCH (10:00)
[2024-07-20] MEDS: GABAPENTIN 300 MG CAP PO SCH (10:22)
[2024-07-20] MEDS: ENOXAPARIN SOD 40 MG/0.4 ML SYRINGE SC SCH (10:22)
[2024-07-20] MEDS: ACETAMINOPHEN 325 MG TAB PO PRN (10:40)
[2024-07-20] MEDS: METOPROLOL TARTRATE 25 MG TAB PO SCH (10:41)
[2024-07-20 10:50] VITALS: PULSE 78; RESP 22; O2SAT 95
[2024-07-20] MEDS: ASPirin-EC 81 mg tab PO SCH (11:01)
[2024-07-20] MEDS: INSULIN LANTUS (GLARGINE) 1 /0.01ml (100units/ml) SC ONE (11:28)
[2024-07-20] MEDS: cefTRIAXone 1GM/50ML D5W 50 ML IV SCH (11:50)
[2024-07-20] MEDS: TETANUS-DIPTH-ACEL PERTUSSIS 0.5ML SYR Tdap IM ONE (12:18)
[2024-07-20 14:45] LABS: Chloride 103 mmol/L (98-107); Potassium 3.5 mmol/L (3.5-5.1)
[2024-07-20 14:46] LABS: Anion Gap 7 (5-15); Carbon Dioxide 21 mmol/L (20-31)
[2024-07-20 14:47] LABS: Calcium 8.3 mg/dL (8.7-10.4)
[2024-07-20 14:52] LABS: BUN/Creatinine Ratio 12.5 (10.0-20.0); Blood Urea Nitrogen 22 mg/dL (9-23); Glucose 308 mg/dL (74-106); Sodium 131 mmol/L (136-145)
[2024-07-20 16:34] VITALS: BP 113/58; PULSE 72; RESP 18; TEMP 97.8; O2SAT 98
[2024-07-20 16:54] VITALS: PULSE 72; RESP 18; O2SAT 98
[2024-07-20 20:00] VITALS: PULSE 81; RESP 20; O2SAT 97
[2024-07-20 21:00] VITALS: BP 128/60; PULSE 81; RESP 20; TEMP 98.1; O2SAT 97
[2024-07-20] MEDS: ATORVASTATIN 20 MG TAB PO SCH (21:04)
[2024-07-21] VITALS (8 sets, daily range): BP systolic 118–148; BP diastolic 47–76; PULSE 68–85; RESP 16–20; TEMP 97.5–98.9; O2SAT 96–100
[2024-07-21] MEDS: INSULIN LANTUS (GLARGINE) 1 /0.01ml (100units/ml) SC SCH ×2 (05:58→07:45)
[2024-07-21 06:07] LABS: Basophils # (auto) 0.1 10 ^3/uL (0-0.2); Basophils % (auto) 0.5 % (0.0-2.0); Eosinophils # (auto) 0.2 10 ^3/uL (0-0.8); Eosinophils % (auto) 2.2 % (0.0-7.0); Hematocrit 29.8 % (36.0-46.0); Hemoglobin 9.9 g/dL (12.2-16.2); Lymphocytes # (auto) 2.7 10 ^3/uL (0.4-5.4); Lymphocytes % (auto) 25.1 % (10.0-50.0); Mean Corpuscular Hemoglobin 28.3 pg (28.0-32.0); Mean Corpuscular Hgb Conc. 33.2 g/dL (32.0-36.0); Mean Corpuscular Volume 85.3 fL (80.0-100.0); Monocytes # (auto) 0.7 10 ^3/uL (0-1.3); Monocytes % (auto) 6.2 % (0.0-12.0); Nucleated Red Blood Cells % 0.1 %; Platelet Count (auto) 402 10^3/uL (140-450); Red Cell Distribution Width 15.9 % (11.8-14.3); White Blood Cell 10.6 10^3/uL (4.4-10.8)
[2024-07-21 06:25] LABS: Chloride 107 mmol/L (98-107); Sodium 133 mmol/L (136-145)
[2024-07-21 06:26] LABS: Anion Gap 6 (5-15); Calcium 8.4 mg/dL (8.7-10.4); Carbon Dioxide 20 mmol/L (20-31)
[2024-07-21 06:31] LABS: BUN/Creatinine Ratio 12.8 (10.0-20.0); Blood Urea Nitrogen 23 mg/dL (9-23); Glucose 242 mg/dL (74-106)
[2024-07-21] MEDS: SODIUM CHLORIDE 0.9% 1,000 ML IV SCH (07:30)
[2024-07-21] MEDS: FUROSEMIDE 20 MG/2 ML VIAL IV SCH (18:15)
[2024-07-21] MEDS: AMPICILLIN & SULBACTAM SODIUM 3 GM in SODIUM CHL 0.9% 100 ML IV SCH (18:40)
[2024-07-22] VITALS (9 sets, daily range): BP systolic 119–160; BP diastolic 58–71; PULSE 73–89; RESP 16–89; TEMP 97.6–99.9; O2SAT 95–98
[2024-07-22 07:14] LABS: Alanine Aminotransferase 20 U/L (7-40); Albumin 3.4 g/dL (3.2-4.8); Alkaline Phosphatase 131 U/L (46-116); Anion Gap 9 (5-15); Aspartate Aminotransferase 15 U/L (13-40); BUN/Creatinine Ratio 14.6 (10.0-20.0); Bilirubin, Total 0.2 mg/dL (0.2-1.0); Blood Urea Nitrogen 26 mg/dL (9-23); Calcium 8.9 mg/dL (8.7-10.4); Carbon Dioxide 19 mmol/L (20-31); Chloride 104 mmol/L (98-107); Glucose 304 mg/dL (74-106); Potassium 4.3 mmol/L (3.5-5.1); Sodium 132 mmol/L (136-145); Total Protein 5.8 g/dL (5.7-8.2)
[2024-07-22 07:15] LABS: Basophils # (auto) 0.1 10 ^3/uL (0-0.2); Basophils % (auto) 0.6 % (0.0-2.0); Eosinophils # (auto) 0.3 10 ^3/uL (0-0.8); Eosinophils % (auto) 2.3 % (0.0-7.0); Hematocrit 28.4 % (36.0-46.0); Hemoglobin 9.4 g/dL (12.2-16.2); Lymphocytes # (auto) 2.7 10 ^3/uL (0.4-5.4); Lymphocytes % (auto) 22.9 % (10.0-50.0); Mean Corpuscular Hemoglobin 28.7 pg (28.0-32.0); Mean Corpuscular Hgb Conc. 33.1 g/dL (32.0-36.0); Mean Corpuscular Volume 86.7 fL (80.0-100.0); Monocytes # (auto) 0.9 10 ^3/uL (0-1.3); Monocytes % (auto) 7.4 % (0.0-12.0); Neutrophils # (auto) 7.8 10 ^3/uL (1.6-8.6); Neutrophils % (auto) 66.8 % (37.0-80.0); Platelet Count (auto) 394 10^3/uL (140-450); Red Blood Cells 3.28 10^6/uL (4.0-5.20); Red Cell Distribution Width 16.3 % (11.8-14.3); White Blood Cell 11.7 10^3/uL (4.4-10.8)
[2024-07-22] MEDS: FUROSEMIDE 40 MG/4 ML VIAL IV ONE (10:54)
[2024-07-22] MEDS: INSULIN LANTUS (GLARGINE) 1 /0.01ml (100units/ml) SC STA (11:15)
[2024-07-22] MEDS: MEROPENEM 1GM IVPB 50 ML IV SCH (20:52)
[2024-07-23] VITALS (8 sets, daily range): BP systolic 119–154; BP diastolic 38–62; PULSE 78–94; RESP 16–19; TEMP 97.6–99; O2SAT 94–97
[2024-07-23] MEDS: INSULIN LANTUS (GLARGINE) 1 /0.01ml (100units/ml) SC SCH (06:20)
[2024-07-23 06:32] LABS: Calcium 8.2 mg/dL (8.7-10.4); Chloride 102 mmol/L (98-107); Hematocrit 26.3 % (36.0-46.0); Hemoglobin 8.8 g/dL (12.2-16.2); Mean Corpuscular Hgb Conc. 33.6 g/dL (32.0-36.0); Mean Corpuscular Volume 86.4 fL (80.0-100.0); Platelet Count (auto) 366 10^3/uL (140-450); Potassium 3.9 mmol/L (3.5-5.1); Red Blood Cells 3.04 10^6/uL (4.0-5.20); Red Cell Distribution Width 15.9 % (11.8-14.3); White Blood Cell 10.6 10^3/uL (4.4-10.8)
[2024-07-23 06:33] LABS: Anion Gap 6 (5-15); Carbon Dioxide 19 mmol/L (20-31)
[2024-07-23 06:38] LABS: BUN/Creatinine Ratio 13.6 (10.0-20.0); Blood Urea Nitrogen 26 mg/dL (9-23); Glucose 355 mg/dL (74-106)
[2024-07-23 06:39] LABS: Magnesium 2.3 mg/dL (1.6-2.6); Sodium 127 mmol/L (136-145)
[2024-07-23 06:51] LABS: Band Neutrophils % (manual) 0; Basophils % (manual) 0 (0.0-2.0); Blast Cells 0; Metamyelocytes % 0; Myelocytes % 0; Promyelocytes % 0; Reactive Lymphocytes 0
[2024-07-23 09:14] LABS: Eosinophils % (manual) 5 (0-7); Lymphocytes % (manual) 18 (10.0-50.0); Monocytes % (manual) 6 (0-12); Platelet Estimate Adequate
[2024-07-23] MEDS: POTASSIUM EFFERVESENT TAB 25 MEQ PO ONE (13:12)
[2024-07-23 13:34] LABS: Hepatitis B Surface Antigen Negative (Negative)
[2024-07-23 13:45] LABS: Magnesium 2.3 mg/dL (1.6-2.6)
[2024-07-23 13:47] LABS: Phosphorus 3.9 mg/dL (2.4-5.1)
[2024-07-23 13:55] LABS: Hepatitis C Antibody Negative (Negative)
[2024-07-23 16:35] LABS: Creatinine, Urine 51.27 mg/dL (30.0-125.0)
[2024-07-23 16:37] LABS: Protein, Urine 325.1 mg/dL (1-14); Urine Protein/Creatinine Ratio 6.34
[2024-07-23] MEDS: BUMETANIDE INJECTION 12.5 MG in GIVE UN-DILUTED 0 ML IV SCH (17:00)
[2024-07-24] VITALS (7 sets, daily range): BP systolic 117–164; BP diastolic 54–85; PULSE 69–75; RESP 18–97; TEMP 97.7–98.5; O2SAT 94–98
[2024-07-24 06:02] LABS: Basophils # (auto) 0 10 ^3/uL (0-0.2); Basophils % (auto) 0.4 % (0.0-2.0); Chloride 104 mmol/L (98-107); Eosinophils # (auto) 0.4 10 ^3/uL (0-0.8); Eosinophils % (auto) 3.8 % (0.0-7.0); Hematocrit 25.8 % (36.0-46.0); Hemoglobin 8.5 g/dL (12.2-16.2); Lymphocytes # (auto) 2.7 10 ^3/uL (0.4-5.4); Lymphocytes % (auto) 24.8 % (10.0-50.0); Mean Corpuscular Hemoglobin 28.5 pg (28.0-32.0); Mean Corpuscular Hgb Conc. 32.8 g/dL (32.0-36.0); Mean Corpuscular Volume 86.8 fL (80.0-100.0); Monocytes # (auto) 0.9 10 ^3/uL (0-1.3); Monocytes % (auto) 8.5 % (0.0-12.0); Neutrophils # (auto) 6.8 10 ^3/uL (1.6-8.6); Neutrophils % (auto) 62.5 % (37.0-80.0); Platelet Count (auto) 370 10^3/uL (140-450); Potassium 3.9 mmol/L (3.5-5.1); Red Blood Cells 2.98 10^6/uL (4.0-5.20); White Blood Cell 10.9 10^3/uL (4.4-10.8)
[2024-07-24 06:03] LABS: Anion Gap 7 (5-15); Carbon Dioxide 21 mmol/L (20-31)
[2024-07-24 06:04] LABS: Calcium 8.6 mg/dL (8.7-10.4)
[2024-07-24 06:08] LABS: BUN/Creatinine Ratio 16.4 (10.0-20.0); Blood Urea Nitrogen 30 mg/dL (9-23); Glucose 224 mg/dL (74-106)
[2024-07-24 06:20] LABS: Sodium 132 mmol/L (136-145)
[2024-07-24] MEDS ORDERED: LACTULOSE 20Gm/30ML SOLN PO PRN (09:00)
[2024-07-24] MEDS: LACTULOSE 20Gm/30ML SOLN PO STA (09:52)
[2024-07-24 10:33] LABS: % Iron Saturation 8.8 % (15-50)
[2024-07-24] MEDS ORDERED: FUROSEMIDE 40 MG/4 ML VIAL IV ONE (14:30)
[2024-07-24] MEDS ORDERED: FUROSEMIDE 40 MG/4 ML VIAL ONE (14:43)
[2024-07-24] MEDS: IRON SUCROSE COMPLEX 110 ML IV ONE (17:52)
[2024-07-25] VITALS (8 sets, daily range): BP systolic 143–188; BP diastolic 70–86; PULSE 61–79; RESP 17–21; TEMP 97.6–98.5; O2SAT 95–98
[2024-07-25] MEDS ORDERED: MORPHINE SULFATE 4 MG/ML SYR/VIAL IV PRN (01:15)
[2024-07-25] MEDS ORDERED: NITROGLYCERIN 0.4 MG SL TAB SL PRN (01:15)
[2024-07-25 06:56] LABS: Hematocrit 28.5 % (36.0-46.0); Hemoglobin 9.2 g/dL (12.2-16.2); Mean Corpuscular Hemoglobin 27.9 pg (28.0-32.0); Mean Corpuscular Hgb Conc. 32.3 g/dL (32.0-36.0); Mean Corpuscular Volume 86.4 fL (80.0-100.0); Platelet Count (auto) 390 10^3/uL (140-450); Red Blood Cells 3.29 10^6/uL (4.0-5.20); Red Cell Distribution Width 15.9 % (11.8-14.3); White Blood Cell 8.8 10^3/uL (4.4-10.8)
[2024-07-25 07:02] LABS: Band Neutrophils % (manual) 0; Basophils % (manual) 0 (0.0-2.0); Blast Cells 0; Metamyelocytes % 0; Myelocytes % 0; Promyelocytes % 0; Reactive Lymphocytes 0
[2024-07-25 07:08] LABS: Anion Gap 11 (5-15); Calcium 8.9 mg/dL (8.7-10.4); Carbon Dioxide 21 mmol/L (20-31); Chloride 103 mmol/L (98-107); Potassium 3.9 mmol/L (3.5-5.1); Sodium 135 mmol/L (136-145)
[2024-07-25 07:14] LABS: BUN/Creatinine Ratio 15.4 (10.0-20.0); Blood Urea Nitrogen 27 mg/dL (9-23); Glucose 165 mg/dL (74-106); Magnesium 2.4 mg/dL (1.6-2.6)
[2024-07-25 09:36] LABS: Eosinophils % (manual) 4 (0-7); Lymphocytes % (manual) 23 (10.0-50.0); Monocytes % (manual) 6 (0-12); Platelet Estimate Adequate
[2024-07-25] MEDS ORDERED: ASPirin 325 MG TAB PO SCH (10:00)
[2024-07-25] MEDS: ASPirin 325 MG TAB PO ONE (10:34)
[2024-07-25] MEDS ORDERED: IRON SUCROSE COMPLEX 110 ML IV SCH (12:00)
[2024-07-25] MEDS: SODIUM FERR GLUC 62.5MG/5ML 110 ML IV ONE (14:46)
[2024-07-26 01:00] VITALS: BP 195/81; PULSE 67; RESP 20; TEMP 97.8; O2SAT 96
[2024-07-26 02:30] VITALS: BP 176/66; PULSE 66; RESP 16; TEMP 98.3; O2SAT 97
[2024-07-26 05:00] VITALS: BP 172/54; PULSE 68; RESP 20; TEMP 98.2; O2SAT 96
[2024-07-26] MEDS: LORazepam 2MG/ML-1ML VIAL IV ONE (06:12)
[2024-07-26] MEDS: hydrALAZINE HCL 20 MG/ML VL IV PRN (06:13)
[2024-07-26 08:55] LABS: Chloride 109 mmol/L (98-107); Potassium 4.1 mmol/L (3.5-5.1); Sodium 139 mmol/L (136-145)
[2024-07-26 08:56] LABS: Anion Gap 8 (5-15); Carbon Dioxide 22 mmol/L (20-31)
[2024-07-26 08:57] LABS: Calcium 8.5 mg/dL (8.7-10.4)
[2024-07-26 09:02] LABS: BUN/Creatinine Ratio 17.6 (10.0-20.0); Basophils # (auto) 0.1 10 ^3/uL (0-0.2); Basophils % (auto) 0.6 % (0.0-2.0); Blood Urea Nitrogen 28 mg/dL (9-23); Eosinophils # (auto) 0.3 10 ^3/uL (0-0.8); Glucose 155 mg/dL (74-106); Hematocrit 26.9 % (36.0-46.0); Hemoglobin 8.8 g/dL (12.2-16.2); Lymphocytes # (auto) 2.5 10 ^3/uL (0.4-5.4); Lymphocytes % (auto) 23.1 % (10.0-50.0); Mean Corpuscular Hemoglobin 28.3 pg (28.0-32.0); Mean Corpuscular Hgb Conc. 32.8 g/dL (32.0-36.0); Mean Corpuscular Volume 86.3 fL (80.0-100.0); Monocytes # (auto) 0.9 10 ^3/uL (0-1.3); Monocytes % (auto) 7.9 % (0.0-12.0); Neutrophils # (auto) 7.1 10 ^3/uL (1.6-8.6); Neutrophils % (auto) 65.4 % (37.0-80.0); Nucleated Red Blood Cells % 0.1 %; Platelet Count (auto) 411 10^3/uL (140-450); Red Blood Cells 3.11 10^6/uL (4.0-5.20); Red Cell Distribution Width 15.6 % (11.8-14.3); White Blood Cell 10.8 10^3/uL (4.4-10.8)
[2024-07-26 09:05] VITALS: BP 187/62; PULSE 79; RESP 17; TEMP 98.6; O2SAT 98
[2024-07-26] MEDS ORDERED: ERTAPENEM SOD INJ 0.5 GM in SODIUM CHL 0.9% 50 ML IV SCH (10:00)
[2024-07-26] MEDS: ERTAPENEM SOD INJ 1 GM in SODIUM CHL 0.9% 50 ML IV ONE (11:27)
[2024-07-26] MEDS: SODIUM FERR GLUC 62.5MG/5ML 110 ML IV SCH (11:28)
[2024-07-26 12:05] VITALS: BP 151/65
[2024-07-26] MEDS ORDERED: FERR-7 PO (13:26)
[2024-07-26] MEDS ORDERED: HYDR-4902 PO (15:48)
== END 2024-07-26 16:45 | disposition home health service (06) | DRG 463 ==
LOC: ER 17:04 → OVERFLOW 21:44 → ER 22:00 → WEST WING 07-20 14:40 → TELE-WESTW 07-25 02:00
PROVIDERS: ADMIT Internal Medicine Geriatric Medicine; ATTEND Internal Medicine Geriatric Medicine
PROC: 05HF33Z Insertion of Infusion Device into Left Cephalic Vein, Percutaneous Approach (ICD-10-PCS; principal; 2024-07-25)
PROC: B54NZZA Ultrasonography of Left Upper Extremity Veins, Guidance (ICD-10-PCS; 2024-07-25)
DX: N10 Acute pyelonephritis (principal); N17.0 Acute kidney failure with tubular necrosis; E11.22 Type 2 diabetes mellitus with diabetic chronic kidney disease; I13.0 Hypertensive heart and chronic kidney disease with heart failure and stage 1 through stage 4 chronic kidney disease, or unspecified chronic kidney disease; I50.32 Chronic diastolic (congestive) heart failure; D63.1 Anemia in chronic kidney disease; D50.9 Iron deficiency anemia, unspecified; E11.40 Type 2 diabetes mellitus with diabetic neuropathy, unspecified; E11.65 Type 2 diabetes mellitus with hyperglycemia; E78.5 Hyperlipidemia, unspecified; N18.32 Chronic kidney disease, stage 3b; F17.210 Nicotine dependence, cigarettes, uncomplicated; K29.70 Gastritis, unspecified, without bleeding; E55.9 Vitamin D deficiency, unspecified; Z16.12 Extended spectrum beta lactamase (ESBL) resistance; Z87.442 Personal history of urinary calculi; Z90.49 Acquired absence of other specified parts of digestive tract; Z83.3 Family history of diabetes mellitus; Z82.49 Family history of ischemic heart disease and other diseases of the circulatory system; Z88.5 Allergy status to narcotic agent; Z82.3 Family history of stroke
CPT/HCPCS: 36415; 36600; 71045; 74176; 76775; 76856; 78707; 80048; 80053; 80307; 81001; 82010; 82306; 82570; 82607; 82728; 82805; 82962; 83036; 83540; 83550; 83605; 83690; 83735; 83880; 83970; 84100; 84156; 84300; 84443; 84484; 84550; 84702; 85007; 85025; 85027; 85610; 85730; 86803; 87086; 87088; 87186; 87340; 90715; 93005; 93970; G0378; J1335; J1756; J1815; J2185; J2405

== ENCOUNTER 2024-09-03 11:12 | Inpatient (IN) | payer MEDICAID ==
[~2024-09-03] VITALS: Ht 157.5 cm; Wt 83.2 kg
[~2024-09-03 11:12] MED LIST changes: +AMLO1TAB23 PO; +ASPI81CH59 PO; -ATOR20TA50 PO; +FERR-7 PO; +FURO40TA4 PO; +GABA-1308 PO; +HYDR-4902 PO; +INSU100S6 SC; +METO-158 PO; -NAPR-957 PO; +SPIR25TA8 PO
[2024-09-03] MEDS: ACETAMINOPHEN 325 MG TAB PO ONE (11:34)
[2024-09-03] MEDS: ASPirin 325 MG TAB PO ONE (12:45)
[2024-09-03 12:51] LABS: Chloride 107 mmol/L (98-107); Potassium 4.2 mmol/L (3.5-5.1)
[2024-09-03 12:52] LABS: Anion Gap 7 (5-15); Calcium 9.3 mg/dL (8.7-10.4); Carbon Dioxide 20 mmol/L (20-31); Sodium 134 mmol/L (136-145)
[2024-09-03 12:53] LABS: Basophils # (auto) 0.1 10 ^3/uL (0-0.2); Basophils % (auto) 0.6 % (0.0-2.0); Eosinophils # (auto) 0 10 ^3/uL (0-0.8); Eosinophils % (auto) 0.4 % (0.0-7.0); Hematocrit 34.7 % (36.0-46.0); Hemoglobin 11.3 g/dL (12.2-16.2); Lymphocytes # (auto) 0.6 10 ^3/uL (0.4-5.4); Lymphocytes % (auto) 6.1 % (10.0-50.0); Mean Corpuscular Hemoglobin 29.4 pg (28.0-32.0); Mean Corpuscular Hgb Conc. 32.6 g/dL (32.0-36.0); Mean Corpuscular Volume 90.2 fL (80.0-100.0); Monocytes # (auto) 0.4 10 ^3/uL (0-1.3); Monocytes % (auto) 4.6 % (0.0-12.0); Neutrophils # (auto) 8.5 10 ^3/uL (1.6-8.6); Neutrophils % (auto) 88.3 % (37.0-80.0); Nucleated Red Blood Cells % 0.1 %; Platelet Count (auto) 406 10^3/uL (140-450); Red Blood Cells 3.85 10^6/uL (4.0-5.20); Red Cell Distribution Width 16.3 % (11.8-14.3); White Blood Cell 9.6 10^3/uL (4.4-10.8)
[2024-09-03 12:56] LABS: Urine Bacteria MANY /hpf (None Seen); Urine Blood 1+ /uL (Negative); Urine Clarity Turbid (Clear); Urine Color Light-Yellow (Yellow); Urine Protein, UAD 3+ (Negative); Urine Specific Gravity 1.012 (1.001-1.035); Urine Urobilinogen Normal (Negative); Urine WBC 40 /hpf (0 - 5); Urine pH 7.5 (5.0-9.0)
[2024-09-03 12:57] LABS: BUN/Creatinine Ratio 10.8 (10.0-20.0); Blood Urea Nitrogen 23 mg/dL (9-23)
--- NOTE | 2024-09-03 12:57 | ED.PDOC ---
SOB-HPI HPI Comments 48 year old female ASHLEY presents to the ED with chief complaint of chest pain. Patient reports that she has been experiencing a fever with associated cough, dysuria, and abdominal pain for the past 3 days, however, she had been woken up today to pressure-like chest pain. Patient relays that she was treated for a UTI involving E. Coli 3 weeks ago in the ED, being given IV antibiotics and given it at home as well. Patient denies any N/V/D, chills, SOB, or hematuria, or headache. Chief Complaint: Chest Pain Time Seen by MD: 12:52 Primary Care Provider: JULIANNA Ferraro notes: Nurses Notes, Medications, Allergies Information Source: Patient Mode of Arrival: EMS Severity: Moderate Timing: Days Duration: Since onset Context: At Rest PE Risk Factors: None History of: None Prehospital treatment: None Modifying Factors: Nothing Associated Signs and Symptoms: Fever, Cough, Chest Pain Quality: Pressure Radiation: No Radiation Location: Substernal If cough with SOB: Non-Productive Past Medical History PAST MEDICAL HISTORY: CHF, CKF, DM, HTN, Kidney Stones, [place] Surgical History: Appendectomy, Cholecystectomy, [employer] History: No Pertinent [employer] History Family History Family History: Unknown Social History Smoker: Cigarettes, Less Than 1 Pack/Day Alcohol: Heavy Drugs: Marijuana Lives In: Home Constitutional: reports: fever; denies: chills, diaphoresis, fatigue, malaise, sweats, weakness, others EENTM: denies: blurred vision, double vision, ear bleeding, ear discharge, ear drainage, ear pain, ear ringing, eye pain, eye redness, hearing loss, mouth pain, mouth swelling, nasal discharge, nose bleeding, nose congestion, nose pain, photophobia, tearing, throat pain, throat swelling, voice changes, others Respiratory: reports: cough; denies: hemoptysis, orthopnea, SOB at rest, shortness of breath, SOB with excertion, stridor, wheezing, others Cardiovascular: reports: chest pain; denies: dizzy spells, diaphoresis, Dyspnea on exertion, edema, irregular heart beat, left arm pain, lightheadedness, palpitations, PND, syncope, others Gastrointestinal: reports: abdominal pain; denies: abdomen distended, blood streaked bowels, constipated, diarrhea, dysphagia, difficulty swallowing, hematemesis, melena, nausea, poor appetite, poor fluid intake, rectal bleeding, rectal pain, vomiting, others Genitourinary: reports: dysuria; denies: abnormal vagina bleeding, burning, dyspareunia, flank pain, frequency, hematuria, incontinence, pain, , vagina discharge, urgency, others Neurological: denies: dizziness, fainting, headache, left sided numbness, left sided weakness, numbness, paresthesia, pre-existing deficit, right sided numbness, right sided weakness, seizure, speech problems, tingling, tremors, weakness, others Musculoskeletal: denies: back pain, gout, joint pain, joint swelling, muscle pain, muscle stiffness, neck pain, others Integumetry: denies: bruises, change in color, change in hair/nails, dryness, laceration, lesions, lumps, rash, wounds, others Allergic/Immunocompromised: denies: Difficulty Healing, Frequent Infections, Hives, Itching, others Hematologic/Lymphatic: denies: anemia, blood clots, easy bleeding, easy bruising, swollen glands, others Endocrine: denies: excessive hunger, excessive sweating, excessive thirst, excessive urination, flushing, intolerance to cold, intolerance to heat, unexplained weight gain, unexplained weight loss, others Psychiatric: denies: anxiety, bipolar disorder, depression, hopeless, panic disorder, schizophrenia, sleepless, suicidal, others All Other Systems: Reviewed and Negative Physical Exam General Appearance: Mild Distress HEENT: Normal ENT Inspection Neck: Full Range of Motion, Normal Inspection Respiratory: No Accessory Muscle Use, Respiratory Distress (Mild), Rhonchi, Other (Productive sounding cough) Cardiovascular: No Edema, No JVD, Tachycardia Breast Exam: Deferred Gastrointestinal: Soft, Suprapubic, Tenderness Genitalia: Deferred Pelvic: Deferred Rectal: Deferred Extremities: Normal inspection, Normal range of motion, Non-tender, No pedal edema Neurologic: Alert (Oriented x4), Normal Affect, Normal Mood, Other (Ambulatory without difficulty. No gross focal deficit.) Cerebellar Function: NOT DONE Reflexes: NOT DONE Skin: Dry, Normal Color, Warm Lymphatic: NOT DONE EKG EKG : Comments Sinus rhythm, rate 89, normal intervals, left axis deviation, probable LVH, upsloping ST elevation in leads V1 through V3 consistent with early repolarization Was a procedure done? Was a procedure done?: No Differential Dx Differential Diagnosis: Anxiety, Asthma, Bronchitis, CHF, COPD, Myocardial infarction, Panic Attack, Pneumonia, Respiratory Distress, URI Comments ACS, chest wall pain, among others X-Ray, Labs, Meds, VS Vital Signs Date Time Temp Pulse Resp B/P (MAP) Pulse Ox O2 Delivery O2 Flow Rate FiO2 09/03/24 14:41 95/48 09/03/24 14:02 20 95 Room Air* 0 21 09/03/24 14:02 95 Room Air* 0 21 09/03/24 12:54 83 09/03/24 12:54 98.7 82 16 105/63 (77) 96 98.7 09/03/24 12:46 98.1 09/03/24 11:34 101.0 09/03/24 11:24 89 09/03/24 11:18 101.0 90 18 120/84 (96) 98 Lab Test 09/03/24 14:30 09/03/24 12:41 09/03/24 12:35 09/03/24 11:25 Range/Units Troponin I High Sensitivity 10 11 9 </=34 ng/L Urine Color Light-yellow Yellow Urine Clarity Turbid H Clear Urine pH 7.5 5.0-9.0 Urine Specific [place] 1.012 1.001-1.035 Urine Protein 3+ H Negative Urine Ketones Negative Negative Urine Blood 1+ H Negative /uL Urine Nitrite Negative Negative Urine Bilirubin Negative Negative Urine Urobilinogen Normal Negative mg/dL Urine Leukocyte Esterase 1+ Negative /uL Urine RBC 2 0 - 4 /hpf Urine WBC 40 0 - 5 /hpf Urine Squamous Epithelial Cells Few <5 /hpf Urine Bacteria Many H None Seen /hpf Urine Glucose 4+ H Normal mg/dL White Blood Count 9.6 4.4-10.8 10^3/uL Red Blood Count 3.85 L 4.0-5.20 10^6/uL Hemoglobin 11.3 L 12.2-16.2 g/dL Hematocrit 34.7 L 36.0-46.0 % Mean Corpuscular Volume 90.2 80.0-100.0 fL Mean Corpuscular Hemoglobin 29.4 28.0-32.0 pg Mean Corpuscular Hemoglobin Concent 32.6 32.0-36.0 g/dL Red Cell Distribution Width 16.3 H 11.8-14.3 % Platelet Count 406 140-450 10^3/uL Mean Platelet Volume 9.5 6.9-10.8 fL Neutrophils (%) (Auto) 88.3 H 37.0-80.0 % Lymphocytes (%) (Auto) 6.1 L 10.0-50.0 % Monocytes (%) (Auto) 4.6 0.0-12.0 % Eosinophils (%) (Auto) 0.4 0.0-7.0 % Basophils (%) (Auto) 0.6 0.0-2.0 % Neutrophils # (Auto) 8.5 1.6-8.6 10 ^3/uL Lymphocytes # (Auto) 0.6 0.4-5.4 10 ^3/uL Monocytes # (Auto) 0.4 0-1.3 10 ^3/uL Eosinophils # (Auto) 0 0-0.8 10 ^3/uL Basophils # (Auto) 0.1 0-0.2 10 ^3/uL Nucleated Red Blood Cells 0.1 % Sodium Level 134 L 136-145 mmol/L Potassium Level 4.2 3.5-5.1 mmol/L Chloride Level 107 98-107 mmol/L Carbon Dioxide Level 20 20-31 mmol/L Anion Gap 7 5-15 Blood Urea Nitrogen 23 9-23 mg/dL Creatinine 2.12 H 0.550-1.02 mg/dL Glomerular Filtration Rate Calc 28 >90 mL/min BUN/Creatinine Ratio 10.8 10.0-20.0 Serum Glucose 151 H 74-106 mg/dL Calcium Level 9.3 8.7-10.4 mg/dL B-Type Natriuretic Peptide 79.48 0-100 pg/mL Beta HCG, Quantitative 1.3 L 1.5-4.2 mIU/mL Current Medications Medications (Trade) Dose Ordered Sig/Mariel Route Start Time Stop Time Status Last Admin Acetaminophen (Tylenol Tablet) 1,000 mg ONCE ONCE PO 09/03/24 11:30 09/03/24 11:31 DC 09/03/24 11:34 Albuterol (Ventolin Medneb) 5 mg ONCE ONCE NEB 09/03/24 12:45 09/03/24 13:20 DC 09/03/24 14:01 Ipratropium [place] (Atrovent Medneb) 0.5 mg ONCE ONCE NEB 09/03/24 12:45 129/24 13:20 DC 09/03/24 14:02 Chest XR: FINDINGS: Lines and Tubes: None Lungs: No focal consolidation. Pleura: No effusion. No pneumothorax. Cardiomediastinal contours: Unremarkable Bones: No acute osseous abnormality. IMPRESSION: 1. No radiographic evidence of acute cardiopulmonary disease. X-Ray, Labs, Meds, VS Comment 48-year-old female with a history of diabetes, CHF, CKD and recent treatment for UTI with IV antibiotics presenting complaining of chest pain, shortness of breath, productive cough and dysuria. Vitals remarkable for temperature 101, BP 95/48 Exam remarkable for suprapubic tenderness to palpation, productive sounding cough and scattered rhonchi Rhythm strip independently interpreted by me: Sinus rhythm, rate 89, no ectopy. Chest x-ray unremarkable CBC unremarkable, basic metabolic panel remarkable for sodium 134, creatinine 2.12. BNP and 2 serial troponins unremarkable. Lactate pending UA abnormal consistent with UTI Patient treated with the following in the ED: Tylenol 1 g p.o., aspirin 325 mg p.o., Nitro-Bid 1/2 inch to chest wall, albuterol 5 mg/Atrovent 0.5 mg nebulized, 1 L 0.9 normal saline IV bolus We will hold off on IV antibiotics pending ID evaluation, since the patient was recently treated with IV ertapenem for 10 days to treat E coli ESBL and strep agalactiae group B UTI. Plan is to admit the patient for IV antibiotics and respiratory support as needed Images Reviewed?: Images reviewed and evaluated by me Time of 1ST Reevaluation: 13:52 Reevaluation 1ST: Unchanged Patient Education/Counseling: Diagnosis, Treatment Family Education/Counseling: No Family Present Departure 1 Departure Time of Disposition: 16:42 Impression: Primary Impression: Chest pain with high risk of acute coronary syndrome Additional Impressions: Acute bronchitis Qualified Codes: J20.9 - Acute bronchitis, unspecified Urinary tract infection Qualified Codes: N39.0 - Urinary tract infection, site not specified Disposition: ADMITTED INPATIENT Admit to: [facility] Condition: Guarded Critical Care Note Critical Care Time?: No Stability Stability form required: No Heart Score Heart Score: Heart Score Response (Comments) Value History Moderate Suspicious 1 EKG Repolarization Disturb 1 Age 45-64 1 Risk Factors >3 or Hx ASHD 2 Troponin Normal limit 0 Total 5 I personally scribed for BANG HUTSON MD ([email or web address]) on 09/03/24 at 12:57. Electronically submitted by David Condon ([email or web address]). I personally scribed for BANG HUTSON MD ([email or web address]) on 09/03/24 at 14:32. Electronically submitted by David Condon ([email or web address]). BANG HUTSON MD Sep 03, 2024 12:57
--- NOTE | 2024-09-03 13:01 | DVH ---
CHEST RADIOGRAPH Indication: sob Technique: Single frontal view of the chest was obtained Comparison: XY CHEST PORTABLE on DOS: 07/19/24, XY CHEST XRAY 1 VIEW on DOS: 04/02/24 FINDINGS: Lines and Tubes: None Lungs: No focal consolidation. Pleura: No effusion. No pneumothorax. Cardiomediastinal contours: Unremarkable Bones: No acute osseous abnormality. IMPRESSION: 1. No radiographic evidence of acute cardiopulmonary disease. HS:Y
[2024-09-03 13:05] LABS: Glucose 151 mg/dL (74-106)
[2024-09-03] MEDS: ALBUTEROL SULF 2.5 MG/0.5ML(0.5%) NEB SOLN NEB ONE (14:01)
[2024-09-03] MEDS: IPRATROPIUM BROM 0.5 MG/2.5ML INH SOL NEB ONE (14:02)
--- NOTE | 2024-09-03 14:11 | ECG ---
[facility] Test Date: 2024-09-03 Test Time: 11:24:05 Pat Name: NIYA GAMEZ Department: er Room: 0215 Gender: F Simplex Operator: patricia : 1975 Requested By: JANETTE CUMMINGS Order Number: [id number] Reading MD: Sachin Steve Measurements Intervals [place] Rate: 89 P: 6 TX: 132 QRS: 0 QRSD: 88 T: 59 QT: 364 QTc: 443 Interpretive Statements Sinus rhythm Probable left ventricular hypertrophy ST elev, probable normal early repol pattern Electronically Signed On 09-07-2024 12:35:19 PST by Sachin Steve Please click the below link to view image of tracing.
[2024-09-03] MEDS: NITROGLYCERIN 2% OINT 1GM PKG TD ONE (14:41)
[2024-09-03] MEDS: SODIUM CHLORIDE 0.9% 1,000 ML IV ONE (16:45)
[2024-09-03] MEDS ORDERED: NITROGLYCERIN 0.4 MG SL TAB SL PRN (17:30)
[2024-09-03] MEDS ORDERED: DEXTROSE (50%) 50ML SYRG IV PRN (17:30)
[2024-09-03] MEDS ORDERED: MAALOX PLUS or MAALOX 30 ML PO PRN (17:30)
--- NOTE | 2024-09-03 17:37 | DVHHP2 ---
History of Present Illness Reason for Visit: Chest pain History of Present Illness 48-year-old morbidly obese patient with a complaint of chest pain patient has cough shortness of breath for the past 3 days stating that the shortness of breath and chest pain were related patient also states that was initially treated with the UTI infection where she was seen and given IV antibiotics inpatient and then sent home on p.o. antibiotics patient as of now comes in here with shortness of breath also has an outstanding medical history of CHF CKD diabetes hypertension kidney stones and [place] patient is a current smoker and heavy alcohol user also does marijuana at home intermittently patient has now states not feeling well and was suggested for admission as per the ED Renal/: UTI Smoke: <1 pack per day ALCOHOL: heavy Drugs: Marijuana Review of Systems Constitutional: Yes: Weakness; No: Fever, Chills, Sweats, Malaise, Other Eyes: No: Pain, Vision change, Conjunctivae inflammation, Eyelid inflammation, Other, Redness ENT: No: Ear pain, Ear discharge, Nose pain, Nose discharge, Nose congestion, Mouth pain, Mouth swelling, Throat pain, Throat swelling, Other Respiratory: No: Cough, Dry, Shortness of breath, SOB with excertion, Wheezing, Hemoptysis, Pleuritic Pain, Sputum, Wheezing, Other Cardiovascular: Chest Pain, Palpitations; No: Orthopnea, Paroxysmal Noc. Dyspnea, Edema, Lt Headedness, Other Gastrointestinal: No: Nausea, Vomiting, Abdominal Pain, Diarrhea, Constipation, Melena, Hematochezia, Other Genitourinary: No Dysuria, No Frequency, No Incontinence, No Hematuria, No Retention, No Other Musculoskeletal: No: other, neck pain, shoulder pain, arm pain, back pain, hand pain, leg pain, foot pain Skin: No: Rash, Lesions, Jaundice, Bruising, Other Neurological: No: Weakness, Numbness, Incoordination, Change in speech, Confusion, Seizures, Other Allergies: Coded Allergies: Codeine (Verified Allergy, Unknown, 03/20/19) Exam Vital Signs Vital Signs Date Time Temp Pulse Resp B/P (MAP) Pulse Ox O2 Delivery O2 Flow Rate FiO2 09/03/24 14:41 95/48 09/03/24 14:02 20 95 Room Air* 0 21 09/03/24 12:54 83 09/03/24 12:54 98.7 98.7 General Appearance: Alert, Oriented X3, Cooperative HEENT: Atraumatic Respiratory: Clear to auscultation, Normal air movement Cardiovascular: Regular rate, Normal S1, Normal S2 Abdominal: Normal bowel sounds, Soft, No tenderness Extremities: No clubbing, No cyanosis Skin: No rashes, No breakdown Neuro: Normal gait, Normal speech Psych/Mental Status: Mood NL Labs/Xrays Labs Test 09/03/24 17:09 09/03/24 15:03 09/03/24 14:30 09/03/24 12:35 Range/Units Troponin I High Sensitivity 10 </=34 ng/L Urine Color Light-yellow Yellow Urine Clarity Turbid H Clear Urine pH 7.5 5.0-9.0 Urine Specific [place] 1.012 1.001-1.035 Urine Protein 3+ H Negative Urine Ketones Negative Negative Urine Blood 1+ H Negative /uL Urine Nitrite Negative Negative Urine Bilirubin Negative Negative Urine Urobilinogen Normal Negative mg/dL Urine Leukocyte Esterase 1+ Negative /uL Urine RBC 2 0 - 4 /hpf Urine WBC 40 0 - 5 /hpf Urine Squamous Epithelial Cells Few <5 /hpf Urine Bacteria Many H None Seen /hpf Urine Glucose 4+ H Normal mg/dL Test 09/03/24 11:25 Range/Units White Blood Count 9.6 4.4-10.8 10^3/uL Red Blood Count 3.85 L 4.0-5.20 10^6/uL Hemoglobin 11.3 L 12.2-16.2 g/dL Hematocrit 34.7 L 36.0-46.0 % Mean Corpuscular Volume 90.2 80.0-100.0 fL Mean Corpuscular Hemoglobin 29.4 28.0-32.0 pg Mean Corpuscular Hemoglobin Concent 32.6 32.0-36.0 g/dL Red Cell Distribution Width 16.3 H 11.8-14.3 % Platelet Count 406 140-450 10^3/uL Mean Platelet Volume 9.5 6.9-10.8 fL Neutrophils (%) (Auto) 88.3 H 37.0-80.0 % Lymphocytes (%) (Auto) 6.1 L 10.0-50.0 % Monocytes (%) (Auto) 4.6 0.0-12.0 % Eosinophils (%) (Auto) 0.4 0.0-7.0 % Basophils (%) (Auto) 0.6 0.0-2.0 % Neutrophils # (Auto) 8.5 1.6-8.6 10 ^3/uL Lymphocytes # (Auto) 0.6 0.4-5.4 10 ^3/uL Monocytes # (Auto) 0.4 0-1.3 10 ^3/uL Eosinophils # (Auto) 0 0-0.8 10 ^3/uL Basophils # (Auto) 0.1 0-0.2 10 ^3/uL Nucleated Red Blood Cells 0.1 % Sodium Level 134 L 136-145 mmol/L Potassium Level 4.2 3.5-5.1 mmol/L Chloride Level 107 98-107 mmol/L Carbon Dioxide Level 20 20-31 mmol/L Anion Gap 7 5-15 Blood Urea Nitrogen 23 9-23 mg/dL Creatinine 2.12 H 0.550-1.02 mg/dL Glomerular Filtration Rate Calc 28 >90 mL/min BUN/Creatinine Ratio 10.8 10.0-20.0 Serum Glucose 151 H 74-106 mg/dL Calcium Level 9.3 8.7-10.4 mg/dL B-Type Natriuretic Peptide 79.48 0-100 pg/mL Beta HCG, Quantitative 1.3 L 1.5-4.2 mIU/mL Assessment/Plan Assessment/Plan Admit to [facility] Chest pain rule out acute ACS Possible acute bronchitis UTI IV antibiotics Management of pain with p.r.n. medications IV hydration Monitor closely for signs of fluid overload Patient with fevers and borderline blood pressure Continue to acutely manage and monitor Plan discussed with: Patient My Orders Orders - BHAVANA LANGFORD MD Procedure Category Date Status Time Admit ADMIT 09/03/24 Transmitted 17:23 Code Status CODE 09/03/24 Transmitted 17:23 Cardiac DIET 09/03/24 Transmitted Diet-2gna,Lofat,Lochol Dinner 0.9%Ns 1000 Ml PHA 09/03/24 Transmitted 17:30 Aspirin Tablet PHA 09/04/24 Transmitted 10:00 Lipitor 40mg Hs PHA 09/03/24 Transmitted Hi-Intensity 22:00 Metoprolol Tartrate PHA 09/03/24 Transmitted Tablet (Lopressor Ta 22:00 Acetaminophen Tablet PHA 09/03/24 Transmitted (Tylenol Tablet) 17:30 Zolpidem Tartrate PHA 12/9/24 Transmitted (Ambien) 17:30 Lorazepam Tablet PHA 09/03/24 Transmitted (Ativan Tablet) 17:30 Docusate Sodium PHA 09/04/24 Transmitted Capsule (Colace 10:00 Complete Blood Count LAB 09/04/24 Verified 04:00 Basic Metabolic Panel LAB 09/04/24 Verified 04:00 Ondansetron Hcl PHA 09/03/24 Transmitted (Zofran) 17:30 Electrocardigram EKG 09/03/24 Logged 17:23 Alum & Mag PHA 09/03/24 Transmitted Hydrox-Simethicone 17:30 Troponin-I Hs LAB 09/03/24 Transmitted 17:23 Lisinopril Tablet PHA 09/04/24 Transmitted (Zestril Tablet) 10:00 Cardiac VELMA 09/03/24 In Process Rehabilitation - Outpa Glucose Blood PHA 09/03/24 Transmitted (Accu-Chek Comfort 20:00 Agressive Insulin Ss PHA 09/03/24 Transmitted 20:00 Dextrose 50% Syringe PHA 09/03/24 Transmitted 17:30 Nitroglycerin [facility] 09/03/24 Transmitted Sublingual (Ntrostat 17:30 Stat Ekg For Chest [facility] 09/03/24 In Process Pain 17:23 Notify Md Of Changes [facility] 09/03/24 In Process From Base 17:23 Edge Sander For [facility] 09/03/24 In Process 24 Hours 17:23 Emergency Dysrhythmia [facility] 09/03/24 In Process Protocol 17:23 Rhythm Strips Once [facility] 09/03/24 In Process Every Shift 17:23 Oxygen By Nasal RT 09/03/24 Transmitted Cannula 17:23 Problem List: (1) Urinary tract infection (2) Chest pain with high risk of acute coronary syndrome (3) Hyperglycemia (4) Hypertension Date of Service: Sep 03, 2024 Billing Provider: BHAVANA LANGFORD MD Common Visit Codes: [id number]-[id number] INP/OBS CARE (HIGH) BHAVANA LANGFORD MD Sep 03, 2024 17:37
[2024-09-03 18:06] LABS: Rapid Influenza A Positive (Negative); Rapid Influenza B Negative (Negative)
[2024-09-03 18:07] LABS: COVID19 ANTIGEN SOFIA FIA NEGATIVE (NEGATIVE)
[2024-09-03] MEDS: ACETAMINOPHEN 325 MG TAB PO PRN (19:06)
[2024-09-03] MEDS: ACCU-CHEK COMFORT CURVE STRIP VI SCH (20:21)
[2024-09-03 20:30] VITALS: BP 119/52; PULSE 97; RESP 20; TEMP 100.3
[2024-09-03] MEDS: InsuLIN REG 1unit/0.01ml Soln (100units/ml) SC SCH (20:30)
[2024-09-03] MEDS: ATORVASTATIN 20 MG TAB PO SCH (22:23)
[2024-09-03] MEDS: METOPROLOL TARTRATE 25 MG TAB PO SCH (22:24)
[2024-09-03] MEDS: guaiFENesin-DM 100/10mg/5ml SYR PO PRN (22:25)
[2024-09-04] VITALS (7 sets, daily range): BP systolic 101–126; BP diastolic 53–59; PULSE 65–90; RESP 16–24; TEMP 99.5–101.2; O2SAT 95–99
[2024-09-04 05:20] LABS: Basophils # (auto) 0 10 ^3/uL (0-0.2); Basophils % (auto) 0.3 % (0.0-2.0); Eosinophils # (auto) 0 10 ^3/uL (0-0.8); Hemoglobin 10.5 g/dL (12.2-16.2); Lymphocytes # (auto) 1.7 10 ^3/uL (0.4-5.4); Lymphocytes % (auto) 13.5 % (10.0-50.0); Mean Corpuscular Hemoglobin 29.5 pg (28.0-32.0); Mean Corpuscular Hgb Conc. 32.8 g/dL (32.0-36.0); Mean Corpuscular Volume 90.1 fL (80.0-100.0); Monocytes # (auto) 1.6 10 ^3/uL (0-1.3); Monocytes % (auto) 12.8 % (0.0-12.0); Neutrophils # (auto) 9.5 10 ^3/uL (1.6-8.6); Neutrophils % (auto) 73.4 % (37.0-80.0); Nucleated Red Blood Cells % 0.1 %; Platelet Count (auto) 339 10^3/uL (140-450); Red Blood Cells 3.55 10^6/uL (4.0-5.20); White Blood Cell 12.9 10^3/uL (4.4-10.8)
[2024-09-04 05:32] LABS: Anion Gap 7 (5-15); Carbon Dioxide 20 mmol/L (20-31); Chloride 106 mmol/L (98-107)
[2024-09-04 05:33] LABS: Calcium 8.8 mg/dL (8.7-10.4)
[2024-09-04] MEDS: LORazepam 0.5 MG TAB PO PRN (05:35)
[2024-09-04 05:38] LABS: BUN/Creatinine Ratio 11.8 (10.0-20.0); Glucose 103 mg/dL (74-106)
[2024-09-04 05:50] LABS: Blood Urea Nitrogen 35 mg/dL (9-23); Sodium 133 mmol/L (136-145)
[2024-09-04] MEDS: LISINOPRIL 5 MG TAB PO SCH (09:52)
[2024-09-04] MEDS: DOCUSATE SOD 100 MG CAP PO SCH (09:53)
[2024-09-04] MEDS: ASPirin 81 mg TAB PO SCH (09:53)
[2024-09-04] MEDS: OSELTAMIVIR 30 MG CAP PO SCH (09:55)
[2024-09-04] MEDS: SODIUM CHLORIDE 0.9% 1,000 ML IV SCH (11:06)
[2024-09-04] MEDS: ONDANSETRON HCL 4 MG/2 ML VIAL IV PRN (11:59)
[2024-09-04] MEDS: MORPHINE SULFATE INJ 2 MG/ml SYRG IV PRN (12:01)
--- NOTE | 2024-09-04 13:36 | DVHPN2 ---
Reviewed: Care Plan, H&P, Labs, Medications, Previous Orders, Radiology Changes from previous H/P or p: No Changes Eyes: No Pain, No Vision change, No Conjunctivae inflammation, No Eyelid inflammation, No Other, No Redness ENT: No Ear pain, No Ear discharge, No Nose pain, No Nose discharge, No Nose congestion, No Mouth pain, No Mouth swelling, No Throat pain, No Throat swelling, No Other Cardiovascular: Chest Pain, Palpitations; No Orthopnea, No Paroxysmal Noc. Dyspnea, No Edema, No Lt Headedness, No Other Respiratory: No Cough, No Dry, No Shortness of breath, No SOB with excertion, No Wheezing, No Hemoptysis, No Pleuritic Pain, No Sputum, No Other Gastrointestinal: No Nausea, No Vomiting, No Abdominal Pain, No Diarrhea, No Constipation, No Melena, No Hematochezia, No Other Genitourinary: No Dysuria, No Frequency, No Incontinence, No Hematuria, No Retention, No Other Musculoskeletal: No other, No neck pain, No shoulder pain, No arm pain, No back pain, No hand pain, No leg pain, No foot pain Skin: No Rash, No Lesions, No Jaundice, No Bruising, No Other Objective Vitals Vital Signs Date Time Temp Pulse Resp B/P (MAP) Pulse Ox O2 Delivery O2 Flow Rate FiO2 09/04/24 13:04 97 Nasal Cannula* 2 28 09/04/24 12:38 76 14 114/49 09/04/24 08:38 98.3 Medications Current Medications Medications Dose Ordered Sig/Mariel Route Start Time Stop Time Status Last Admin Dose Admin Sodium Chloride 1,000 ml @ 30 mls/hr Q24H IV 09/03/24 17:30 09/04/24 11:06 30 MLS/HR Aspirin 81 mg DAILY PO 09/04/24 10:00 09/04/24 09:53 81 MG Atorvastatin Calcium 40 mg HS PO 09/03/24 22:00 09/03/24 22:23 40 MG Metoprolol Tartrate 12.5 mg Q12HR PO 09/03/24 22:00 09/04/24 09:53 12.5 MG Acetaminophen 650 mg Q6HP PRN PO 09/03/24 17:30 09/04/24 05:01 650 MG Zolpidem Tartrate 5 mg QHSP PRN PO 09/03/24 17:30 Lorazepam 0.5 mg Q6HP PRN PO 09/03/24 17:30 09/04/24 05:35 0.5 MG Docusate Sodium 100 mg DAILY PO 09/04/24 10:00 09/04/24 09:53 100 MG Ondansetron HCl 4 mg Q4HP PRN IV 09/03/24 17:30 09/04/24 11:59 4 MG Al Hydrox/Mg Hydrox/Simethicone 30 ml Q6HP PRN PO 09/03/24 17:30 Lisinopril 10 mg DAILY PO 09/04/24 10:00 09/04/24 09:52 10 MG Diagnostic Test (Pha) 1 strip IQ4HR 09/03/24 20:00 09/04/24 12:02 1 STRIP Insulin Human Regular IQ4HR SC 09/03/24 20:00 09/04/24 11:59 4 UNITS Dextrose 50 ml UD PRN IV 09/03/24 17:30 Nitroglycerin 0.4 mg Q5MINP PRN SL 09/03/24 17:30 Oseltamivir Phosphate 30 mg DAILY PO 09/04/24 10:00 09/09/24 09:59 09/04/24 09:55 30 MG Guaifenesin/ Dextromethorphan 10 ml Q6HR PRN PO 09/03/24 21:30 09/04/24 04:53 10 ML Morphine Sulfate 2 mg Q30M PRN IV 09/03/24 21:45 09/04/24 12:01 2 MG Laboratory Results Laboratory Tests 09/04/24 04:02 Chemistry Test 09/04/24 04:02 Calcium Level 8.8 mg/dL (8.7-10.4) Urinalysis Test 09/03/24 12:35 Urine Color Light-yellow (Yellow) Urine Clarity Turbid (Clear) H Urine pH 7.5 (5.0-9.0) Urine Specific [place] 1.012 (1.001-1.035) Urine Protein 3+ (Negative) H Urine Ketones Negative (Negative) Urine Blood 1+ /uL (Negative) H Urine Nitrite Negative (Negative) Urine Bilirubin Negative (Negative) Urine Urobilinogen Normal mg/dL (Negative) Urine Leukocyte Esterase 1+ /uL (Negative) Urine RBC 2 /hpf (0 - 4) Urine WBC 40 /hpf (0 - 5) Urine Squamous Epithelial Cells Few /hpf (<5) Urine Bacteria Many /hpf (None Seen) H Urine Glucose 4+ mg/dL (Normal) H Labs and/or images reviewed: Labs reviewed by me, Image(s) reviewed by me Assessment/Plan Assessment/Plan Chest pain rule out coronary artery disease: Troponin negative x3, cardiology consult for Dr. Umanzor he easily UTI: Urine cultures Rocephin Diabetes Hypertension Chronic congestive heart failure History of [place] History of kidney stones Chronic current smoker: Counseling Marijuana abuse: Counseling Chronic alcoholic abuse: Counseled Influenza B positive: Tamiflu Time spent 45 minutes Condition guarded Advanced care planning time 20 minutes Plan discussed with: Patient My Orders Orders - AZIZA GARCIA MD Procedure Category Date Status Time * Cardiology Consult CONS 09/04/24 Transmitted 13:32 Date of Service: Sep 04, 2024 Billing Provider: AZIZA GARCIA MD Common Visit Codes: [id number] INP/OBS CARE(HIGH) Secondary Visit Codes: [id number] CARE PLAN 30 MINUTES AZIZA GARCIA MD Sep 04, 2024 13:36
--- NOTE | 2024-09-04 19:28 | DVHINCON2 ---
Date Seen: Sep 04, 2024 Referring Physician MD Cullen Reason for Consultation Chest pain History of Present Illness This is a 48-year-old female who presented to the emergency room with a chief complaint of chest pain. The patient complains substernal chest pain described as heaviness, nonradiating, worse with cough, and associated with fever, chills, and mild shortness of breath. She underwent a 12 lead electrocardiogram revealing a sinus rhythm suggestive of left ventricular hypertrophy. Serial troponin levels are negative. Significant medical history includes hypertension, diabetes mellitus, dyslipidemia, chronic kidney disease, anemia with history of menorrhagia, history of drug/alcohol abuse, current tobacco use, and obesity. Past Medical History Past medical history reviewed. No other significant than mentioned above. Past Surgical History Past surgical history reviewed. No other significant than mentioned above. Family History: Alcoholism Family history: Cardiovascular disease G8 MOTHER Family history: Diabetes mellitus G8 MOTHER Family history: Hypertension G8 MOTHER Heart attack G8 MOTHER Stroke G8 MOTHER Tuberculosis G8 FATHER Family History Family history reviewed. Social History See HPI. Allergies: Coded Allergies: Codeine (Verified Allergy, Unknown, 03/20/19) Home Meds Active Scripts Ferrous Sulfate (Ferrous Sulfate) 325 Mg Tab, 325 MG PO DAILY for 30 Days, #30 TAB 2 Refills Prov:ANDREA JOSHUA RESIDENT 04/07/24 Insulin Regular (Human) (Novolin R) 100 Unit/Ml Inj, 0 UNITS SC IQ4HR for 60 Days, #5 INJ 2 Refills Please use insulin Reglan 3 times a day before meal. Follow below instruction. Please check glucose via glucometer 3 times a day. If blood glucose is between 150 and 200 please administer 2 units of regular insulin. If blood glucose is between 200-250 please administer 4 units of regular insulin. If blood sugar is between 250 and 300 please administer 8 units of regular insulin. If blood sugar between 300-350 please administered 10 units of regular insulin. If blood sugars between 350 and 400 please administer 12 units of regular insulin. If blood sugars greater than 400 please talk to /come to the hospital. Prov:ANDREA JOSHUA RESIDENT 04/07/24 Reported Medications Spironolactone (Spironolactone) 25 Mg Tab, 1 TAB PO DAILY for 30 Days, #30 09/04/24 Amlodipine Besylate (Amlodipine Besylate) 10 Mg Tab, 1 TAB PO DAILY for 90 Days, #90 09/04/24 Pantoprazole Sodium Sesquihydr (Protonix) 40 Mg Tab, 1 TAB PO DAILY for 90 Days, #90 09/04/24 Metoprolol Tartrate (Metoprolol Tartrate) 50 Mg Tab, 1 TAB PO BID for 60 Days, #120 09/04/24 Metoclopramide Hcl (Metoclopramide Hcl) 5 Mg Tab, 1 TAB PO TID for 90 Days, #270 09/04/24 Insulin Glargine (Insulin Glargine) 100 Unit/Ml Marly, 46 UNIT SC QPM for 32 Days, #15 09/04/24 Gabapentin (Gabapentin) 100 Mg Cap, 400 MG PO BID for 90 Days, #180 09/04/24 Furosemide (Furosemide) 40 Mg Tab, 1 TAB PO DAILY for 90 Days, #90 09/04/24 Empagliflozin (Jardiance) 10 Mg Tab, 1 TAB PO DAILY for 90 Days, #90 09/04/24 Atorvastatin Calcium (Lipitor) 40 Mg Tab, 1 TAB PO DAILY for 90 Days, #90 09/04/24 Aspirin (Aspirin Low Dose) 81 Mg Chw, 1 TAB PO DAILY for 90 Days, #90 09/04/24 Home Meds Home medications reviewed. Current Medications Current Medications Medications (Trade) Dose Ordered Sig/Mariel Route PRN Reason Start Time Stop Time Status Last Admin Aspirin 81 mg DAILY PO 09/04/24 10:00 09/04/24 09:53 Atorvastatin Calcium (Lipitor) 40 mg HS PO 09/03/24 22:00 09/03/24 22:23 Metoprolol Tartrate (Lopressor Tablet) 12.5 mg Q12HR PO 09/03/24 22:00 09/04/24 09:53 Docusate Sodium (Colace Capsule) 100 mg DAILY PO 09/04/24 10:00 09/04/24 09:53 Lisinopril (Zestril Tablet) 10 mg DAILY PO 09/04/24 10:00 09/04/24 09:52 Diagnostic Test (Pha) (Accu-Chek Comfort Curve T) 1 strip IQ4HR 09/03/24 20:00 09/04/24 16:05 Insulin Human Regular (InsuLIN R) IQ4HR SC 09/03/24 20:00 09/04/24 11:59 Oseltamivir Phosphate (Tamiflu 30MG Capsule) 30 mg DAILY PO 09/04/24 10:00 09/09/24 09:59 09/04/24 09:55 Guaifenesin/ Dextromethorphan (Robitussin-Dm Liquid) 10 ml Q6HR PRN PO FOR COUGH 09/03/24 21:30 09/04/24 04:53 Morphine Sulfate 2 mg Q30M PRN IV FOR CHEST PAIN 09/03/24 21:45 09/04/24 18:59 Review of Systems Constitutional: Fever, chills Ears, Nose, & Throat: No symptom reported Eyes: No symptom reported Neurological: No symptoms reported Pulmonary/Respiratory: SOB Cardiovascular: Chest pain Gastrointestinal: No symptom reported Genitourinary: No symptom reported Musculoskeletal: No symptom reported Skin: No symptom reported Psychiatric: No symptom reported Endocrine: No symptom reported Hemotologic/Lymphatic: No symptom reported Vital Signs Vital Signs Date Time Temp Pulse Resp B/P (MAP) Pulse Ox O2 Delivery O2 Flow Rate FiO2 09/04/24 18:59 91 16 115/58 09/04/24 16:00 101.8 93 101.8 09/04/24 13:04 Nasal Cannula* 2 28 Physical Exam General Appearance: Cooperative. Well developed. Well nourished. In no acute distress Head Exam: Normal inspection Neck Exam: Normal inspection. Non-tender. Normal alignment Pulmonary/Respiratory: Chest non-tender. Clear bilateral breath sounds Cardiovascular/Chest: Regular rate and rhythm. S1, S2. Sinus rhythm with LVH. No murmurs. No JVD. Peripheral Pulses: 2+ Radial (R). 2+ Radial (L). 2+ Pedal (R). 2+ Pedal (L) Abdominal Exam: Normal bowel sounds. Soft. Nontender. No hepatospenomegaly. No masses Ankle Exam: Negative ankle edema Lower extremities: Negative lower extremity edema Neuro/Mental Status: A&O x4. Coherent Thoughts/Psych: Normal thought pattern. Appropriate mood and affect. Somewhat anxious Appearance: In no acute distress Skin Exam: Normal inspection. Normal color. Warm. Dry Labs/Diagnostic Data Labs Test 09/04/24 16:04 09/04/24 04:02 09/03/24 18:11 09/03/24 17:09 Range/Units POC Glucose 111 H 70-106 mg/dl White Blood Count 12.9 #H 4.4-10.8 10^3/uL Red Blood Count 3.55 L 4.0-5.20 10^6/uL Hemoglobin 10.5 L 12.2-16.2 g/dL Hematocrit 32.0 L 36.0-46.0 % Mean Corpuscular Volume 90.1 80.0-100.0 fL Mean Corpuscular Hemoglobin 29.5 28.0-32.0 pg Mean Corpuscular Hemoglobin Concent 32.8 32.0-36.0 g/dL Red Cell Distribution Width 16.0 H 11.8-14.3 % Platelet Count 339 140-450 10^3/uL Mean Platelet Volume 9.5 6.9-10.8 fL Neutrophils (%) (Auto) 73.4 37.0-80.0 % Lymphocytes (%) (Auto) 13.5 10.0-50.0 % Monocytes (%) (Auto) 12.8 H 0.0-12.0 % Eosinophils (%) (Auto) 0.0 0.0-7.0 % Basophils (%) (Auto) 0.3 0.0-2.0 % Neutrophils # (Auto) 9.5 H 1.6-8.6 10 ^3/uL Lymphocytes # (Auto) 1.7 0.4-5.4 10 ^3/uL Monocytes # (Auto) 1.6 H 0-1.3 10 ^3/uL Eosinophils # (Auto) 0 0-0.8 10 ^3/uL Basophils # (Auto) 0 0-0.2 10 ^3/uL Nucleated Red Blood Cells 0.1 % Sodium Level 133 L 136-145 mmol/L Potassium Level 4.0 3.5-5.1 mmol/L Chloride Level 106 98-107 mmol/L Carbon Dioxide Level 20 20-31 mmol/L Anion Gap 7 5-15 Blood Urea Nitrogen 35 #H 9-23 mg/dL Creatinine 2.96 #H 0.550-1.02 mg/dL Glomerular Filtration Rate Calc 19 >90 mL/min BUN/Creatinine Ratio 11.8 10.0-20.0 Serum Glucose 103 74-106 mg/dL Calcium Level 8.8 8.7-10.4 mg/dL Troponin I High Sensitivity 11 </=34 ng/L Lactic Acid Level 1.8 0.4-2.0 mmol/L Test 09/03/24 15:03 09/03/24 12:35 09/03/24 11:25 Range/Units Influenza Type A Antigen Positive Negative Influenza Type B Antigen Negative Negative SARS-CoV-2 Antigen (Rapid) Negative NEGATIVE Urine Color Light-yellow Yellow Urine Clarity Turbid H Clear Urine pH 7.5 5.0-9.0 Urine Specific [place] 1.012 1.001-1.035 Urine Protein 3+ H Negative Urine Ketones Negative Negative Urine Blood 1+ H Negative /uL Urine Nitrite Negative Negative Urine Bilirubin Negative Negative Urine Urobilinogen Normal Negative mg/dL Urine Leukocyte Esterase 1+ Negative /uL Urine RBC 2 0 - 4 /hpf Urine WBC 40 0 - 5 /hpf Urine Squamous Epithelial Cells Few <5 /hpf Urine Bacteria Many H None Seen /hpf Urine Glucose 4+ H Normal mg/dL B-Type Natriuretic Peptide 79.48 0-100 pg/mL Beta HCG, Quantitative 1.3 L 1.5-4.2 mIU/mL Microbiology Date/Time Source Procedure Growth Status 09/03/24 17:10 Blood Blood Culture - Preliminary NO GROWTH AFTER 24 HOURS OF INCUBATION. Resulted Assessment Sepsis with Influenza Type A Noncardiac chest pain, pleuritic in nature [id number] diabetes mellitus, (HgB A1C >14.0%) Dyslipidemia ERIK on CKD Stage IIIb Hx amphetamine/alcohol use Tobacco use Medical noncompliance Obesity Plan/Recommendation (Dr. Hudson) The patient presents with noncardiac chest pain which is pleuritic in nature secondary to sepsis with influenza A. She underwent a recent transthoracic echocardiogram revealing an EF 60% with grade I diastolic dysfunction (04/07/2024). We would recommend antibiotic therapy per primary care team. Consider Nephrology consultation given acute kidney injury. Counseled on tobacco cessation, tight glycemic control, and medical compliance. There is no further cardiac workup indicated at this time. Thank you for allowing us to participate in this patient's care. Please call if you have any questions or concerns. This medical document was created using an electronic medical record system with voice recognition software and computerized dictation system. Although this document has been carefully reviewed, there might still be some phonetic and typographical errors. Occasional wrong-word or ``sound-alike substitutions may have occurred due to the inherent limitations of voice recognition software. These areas are purely typographical due to imperfections of the software programs and do not reflect any compromise in the patient's medical care. Please read the chart carefully and recognize, using context, where these substitutions have occurred. Plan discussed with: Patient, Other Date of Service: Sep 04, 2024 Billing Provider: SATURNINO HUDSON MD Cardiology Common Codes: [id number] INP/OBS CARE (High) [facility] Sep 04, 2024 19:28
[2024-09-04] MEDS: ZOLPIDEM TARTRATE 5 MG TAB PO PRN (23:15)
[2024-09-05] VITALS (8 sets, daily range): BP systolic 107–132; BP diastolic 46–59; PULSE 76–94; RESP 17–21; TEMP 98.9–100.5; O2SAT 92–97
--- NOTE | 2024-09-05 08:25 | DVHPN2 ---
Reviewed: Care Plan, H&P, Labs, Medications, Previous Orders, Radiology Changes from previous H/P or p: No Changes Eyes: No Pain, No Vision change, No Conjunctivae inflammation, No Eyelid inflammation, No Other, No Redness ENT: No Ear pain, No Ear discharge, No Nose pain, No Nose discharge, No Nose congestion, No Mouth pain, No Mouth swelling, No Throat pain, No Throat swelling, No Other Cardiovascular: Chest Pain, Palpitations; No Orthopnea, No Paroxysmal Noc. Dyspnea, No Edema, No Lt Headedness, No Other Respiratory: No Cough, No Dry, No Shortness of breath, No SOB with excertion, No Wheezing, No Hemoptysis, No Pleuritic Pain, No Sputum, No Other Gastrointestinal: No Nausea, No Vomiting, No Abdominal Pain, No Diarrhea, No Constipation, No Melena, No Hematochezia, No Other Genitourinary: No Dysuria, No Frequency, No Incontinence, No Hematuria, No Retention, No Other Musculoskeletal: No other, No neck pain, No shoulder pain, No arm pain, No back pain, No hand pain, No leg pain, No foot pain Skin: No Rash, No Lesions, No Jaundice, No Bruising, No Other Objective Vitals Vital Signs Date Time Temp Pulse Resp B/P (MAP) Pulse Ox O2 Delivery O2 Flow Rate FiO2 09/05/24 05:00 99.0 88 17 117/46 (69) 97 99.0 09/04/24 22:22 Room Air* 0 21 Intake/Output Intake and Output 09/05/24 07:00 Intake Total 580 ml Balance 580 ml Intake Oral 250 ml IV Total 330 ml # Voids 1 Medications Current Medications Medications Dose Ordered Sig/Mariel Route Start Time Stop Time Status Last Admin Dose Admin Sodium Chloride 1,000 ml @ 30 mls/hr Q24H IV 09/03/24 17:30 09/04/24 17:47 30 MLS/HR Aspirin 81 mg DAILY PO 09/04/24 10:00 09/04/24 09:53 81 MG Atorvastatin Calcium 40 mg HS PO 09/03/24 22:00 09/04/24 23:15 40 MG Metoprolol Tartrate 12.5 mg Q12HR PO 09/03/24 22:00 09/04/24 09:53 12.5 MG Acetaminophen 650 mg Q6HP PRN PO 09/03/24 17:30 09/04/24 20:29 650 MG Zolpidem Tartrate 5 mg QHSP PRN PO 09/03/24 17:30 09/04/24 23:15 5 MG Lorazepam 0.5 mg Q6HP PRN PO 09/03/24 17:30 09/04/24 23:16 0.5 MG Docusate Sodium 100 mg DAILY PO 09/04/24 10:00 09/04/24 09:53 100 MG Ondansetron HCl 4 mg Q4HP PRN IV 09/03/24 17:30 09/04/24 18:59 4 MG Al Hydrox/Mg Hydrox/Simethicone 30 ml Q6HP PRN PO 09/03/24 17:30 Lisinopril 10 mg DAILY PO 09/04/24 10:00 09/04/24 09:52 10 MG Diagnostic Test (Pha) 1 strip IQ4HR 09/03/24 20:00 09/05/24 06:39 1 STRIP Insulin Human Regular IQ4HR SC 09/03/24 20:00 09/04/24 20:28 2 UNITS Dextrose 50 ml UD PRN IV 09/03/24 17:30 Nitroglycerin 0.4 mg Q5MINP PRN SL 09/03/24 17:30 Oseltamivir Phosphate 30 mg DAILY PO 09/04/24 10:00 09/09/24 09:59 09/04/24 09:55 30 MG Guaifenesin/ Dextromethorphan 10 ml Q6HR PRN PO 09/03/24 21:30 09/04/24 23:15 10 ML Morphine Sulfate 2 mg Q30M PRN IV 09/03/24 21:45 09/04/24 18:59 2 MG Laboratory Results Laboratory Tests 09/04/24 04:02 Urinalysis Test 09/03/24 12:35 Urine Color Light-yellow (Yellow) Urine Clarity Turbid (Clear) H Urine pH 7.5 (5.0-9.0) Urine Specific [place] 1.012 (1.001-1.035) Urine Protein 3+ (Negative) H Urine Ketones Negative (Negative) Urine Blood 1+ /uL (Negative) H Urine Nitrite Negative (Negative) Urine Bilirubin Negative (Negative) Urine Urobilinogen Normal mg/dL (Negative) Urine Leukocyte Esterase 1+ /uL (Negative) Urine RBC 2 /hpf (0 - 4) Urine WBC 40 /hpf (0 - 5) Urine Squamous Epithelial Cells Few /hpf (<5) Urine Bacteria Many /hpf (None Seen) H Urine Glucose 4+ mg/dL (Normal) H Microbiology Microbiology Date/Time Source Procedure Growth Status 09/03/24 17:10 Blood Blood Culture - Preliminary NO GROWTH AFTER 24 HOURS OF INCUBATION. Resulted Labs and/or images reviewed: Labs reviewed by me, Image(s) reviewed by me Assessment/Plan Assessment/Plan Chest pain rule out coronary artery disease: Troponin negative x3, cardiology consult for Dr. Atkinson appreciated ejection fraction 60% no further cardiac workup Influenza A positive: Tamiflu UTI: Urine cultures pending, urine cultures 07/01/2024 showed ESBL E coli sensitive to Invanz, we will start Invanz Diabetes Hypertension Chronic congestive heart failure History of [place] History of kidney stones Acute kidney injury with elevated BUN creatinine, consult for [employer] Chronic current smoker: Counseling Marijuana abuse: Counseling Chronic alcoholic abuse: Counseled Time spent 45 minutes Condition guarded Advanced care planning time 20 minutes Plan discussed with: Patient My Orders Orders - AZIZA GARCIA MD Procedure Category Date Status Time * Cardiology Consult CONS 09/04/24 Transmitted 13:32 Urine Bacterial [place] 09/05/24 Logged Culture 08:16 *Dr. [facility] CONS 09/05/24 Verified -[place] 08:18 Date of Service: Sep 05, 2024 Billing Provider: AZIZA GARCIA MD Common Visit Codes: [id number] INP/OBS CARE(HIGH) AZIZA GARCIA MD Sep 05, 2024 08:25
[2024-09-05] MEDS: ERTAPENEM SOD INJ 1 GM in SODIUM CHL 0.9% 50 ML IV ONE (09:45)
--- NOTE | 2024-09-05 12:44 | DVHCONRES ---
Date Seen: Sep 05, 2024 Resident Creating Document: ANDREA JOSHUA RESIDENT Referring Physician DR Berman Reason for Consultation ERIK History of Present Illness Patient is a 48-year-old female with past medical history of diabetes mellitus type 2, on insulin, hypertension, CHF, coronary artery disease with [place], kidney stone, CKD , questionable Chronic obstructive pulmonary disease who came to the hospital with a chief complaint of chest pain, substernal, associated with breathing, not associated with exertion, fever, cough. As per patient he had a sick contact from primarily members with a similar kind of symptoms. She has been ill for 3-4 days. With further evaluation patient found to influenza a infection. Patient denying any other complaints including headache, motor weakness, sensory deficits, abdominal pain, lower extremity weakness. Nephrology consultation was done for evaluation of acute kidney injury. With further evaluation patient found to have fever around 100, tachycardia, laboratory findings showed elevated creatinine trending with 2.12, 2.96, GFR trending down from 40, 28, 19. No any other complaints. Past Medical History diabetes mellitus type 2, on insulin, hypertension, CHF, coronary artery disease with UT, kidney stone, CKD , questionable Chronic obstructive pulmonary disease who came to the hospital with a chief complaint of shortness of breath for three days. Past Surgical History Per HPI Family History: Alcoholism Family history: Cardiovascular disease G8 MOTHER Family history: Diabetes mellitus G8 MOTHER Family history: Hypertension G8 MOTHER Heart attack G8 MOTHER Stroke G8 MOTHER Tuberculosis G8 FATHER Social History As per HPI Allergies: Coded Allergies: Codeine (Verified Allergy, Unknown, 03/20/19) Home Meds Active Scripts Ferrous Sulfate (Ferrous Sulfate) 325 Mg Tab, 325 MG PO DAILY for 30 Days, #30 TAB 2 Refills Prov:ANDREA JOSHUA RESIDENT 04/07/24 Insulin Regular (Human) (Novolin R) 100 Unit/Ml Inj, 0 UNITS SC IQ4HR for 60 Days, #5 INJ 2 Refills Please use insulin Reglan 3 times a day before meal. Follow below instruction. Please check glucose via glucometer 3 times a day. If blood glucose is between 150 and 200 please administer 2 units of regular insulin. If blood glucose is between 200-250 please administer 4 units of regular insulin. If blood sugar is between 250 and 300 please administer 8 units of regular insulin. If blood sugar between 300-350 please administered 10 units of regular insulin. If blood sugars between 350 and 400 please administer 12 units of regular insulin. If blood sugars greater than [address]come to the hospital. Prov:ANDREA JOSHUA RESIDENT 04/07/24 Reported Medications Spironolactone (Spironolactone) 25 Mg Tab, 1 TAB PO DAILY for 30 Days, #30 09/04/24 Amlodipine Besylate (Amlodipine Besylate) 10 Mg Tab, 1 TAB PO DAILY for 90 Days, #90 09/04/24 Pantoprazole Sodium Sesquihydr (Protonix) 40 Mg Tab, 1 TAB PO DAILY for 90 Days, #90 09/04/24 Metoprolol Tartrate (Metoprolol Tartrate) 50 Mg Tab, 1 TAB PO BID for 60 Days, #120 09/04/24 Metoclopramide Hcl (Metoclopramide Hcl) 5 Mg Tab, 1 TAB PO TID for 90 Days, #270 09/04/24 Insulin Glargine (Insulin Glargine) 100 Unit/Ml Marly, 46 UNIT SC QPM for 32 Days, #15 09/04/24 Gabapentin (Gabapentin) 100 Mg Cap, 400 MG PO BID for 90 Days, #180 09/04/24 Furosemide (Furosemide) 40 Mg Tab, 1 TAB PO DAILY for 90 Days, #90 09/04/24 Empagliflozin (Jardiance) 10 Mg Tab, 1 TAB PO DAILY for 90 Days, #90 09/04/24 Atorvastatin Calcium (Lipitor) 40 Mg Tab, 1 TAB PO DAILY for 90 Days, #90 09/04/24 Aspirin (Aspirin Low Dose) 81 Mg Chw, 1 TAB PO DAILY for 90 Days, #90 09/04/24 Current Medications Current Medications Medications (Trade) Dose Ordered Sig/Mariel Route PRN Reason Start Time Stop Time Status Last Admin Ertapenem 0.5 gm/ Sodium Chloride 50 ml @ 100 mls/hr DAILY IV 09/06/24 10:00 Morphine Sulfate 2 mg Q4HPRN PRN IV SEVERE PAIN (7-10 PAIN SCALE) 09/05/24 10:15 Sodium Chloride 1,000 ml @ 100 mls/hr Q10H IV 09/05/24 11:15 Review of Systems Patient complaining of fever, substernal chest pain, mild shortness of breath, and and cough Vital Signs Vital Signs Date Time Temp Pulse Resp B/P (MAP) Pulse Ox O2 Delivery O2 Flow Rate FiO2 09/05/24 11:21 86 19 114/56 09/05/24 09:00 99.6 95 99.6 09/04/24 22:22 Room Air* 0 21 Physical Exam General Appearance: Cooperative. Well developed. Well nourished. NAD Head Exam: Normal inspection Neck Exam: Normal inspection. Non-tender. Normal alignment Pulmonary/Respiratory: Chest non-tender. Clear bilateral breath sounds Cardiovascular/Chest: Regular rate and rhythm. No murmurs. No JVD. Peripheral Pulses: 2+ Radial (R). 2+ Radial (L). 2+ Pedal (R). 2+ Pedal (L) Abdominal Exam: Normal bowel sounds. Soft. Nontender. No hepatospenomegaly. No masses Ankle Exam: Negative ankle edema Lower extremities: Negative lower extremity edema Neuro/Mental Status: A&O x4. Coherent Thoughts/Psych: Normal thought pattern. Appropriate mood and affect. Good judgement and insight Appearance: In no acute distress Skin Exam: Normal inspection. Normal color. Warm. Dry Labs/Diagnostic Data Labs Test 09/05/24 08:46 09/05/24 04:34 09/04/24 04:02 09/03/24 18:11 Range/Units POC Glucose 188 H 70-106 mg/dl White Blood Count 12.9 #H 4.4-10.8 10^3/uL Red Blood Count 3.55 L 4.0-5.20 10^6/uL Hemoglobin 10.5 L 12.2-16.2 g/dL Hematocrit 32.0 L 36.0-46.0 % Mean Corpuscular Volume 90.1 80.0-100.0 fL Mean Corpuscular Hemoglobin 29.5 28.0-32.0 pg Mean Corpuscular Hemoglobin Concent 32.8 32.0-36.0 g/dL Red Cell Distribution Width 16.0 H 11.8-14.3 % Platelet Count 339 140-450 10^3/uL Mean Platelet Volume 9.5 6.9-10.8 fL Neutrophils (%) (Auto) 73.4 37.0-80.0 % Lymphocytes (%) (Auto) 13.5 10.0-50.0 % Monocytes (%) (Auto) 12.8 H 0.0-12.0 % Eosinophils (%) (Auto) 0.0 0.0-7.0 % Basophils (%) (Auto) 0.3 0.0-2.0 % Neutrophils # (Auto) 9.5 H 1.6-8.6 10 ^3/uL Lymphocytes # (Auto) 1.7 0.4-5.4 10 ^3/uL Monocytes # (Auto) 1.6 H 0-1.3 10 ^3/uL Eosinophils # (Auto) 0 0-0.8 10 ^3/uL Basophils # (Auto) 0 0-0.2 10 ^3/uL Nucleated Red Blood Cells 0.1 % Sodium Level 133 L 136-145 mmol/L Potassium Level 4.0 3.5-5.1 mmol/L Chloride Level 106 98-107 mmol/L Carbon Dioxide Level 20 20-31 mmol/L Anion Gap 7 5-15 Blood Urea Nitrogen 35 #H 9-23 mg/dL Creatinine 2.96 #H 0.550-1.02 mg/dL Glomerular Filtration Rate Calc 19 >90 mL/min BUN/Creatinine Ratio 11.8 10.0-20.0 Serum Glucose 103 74-106 mg/dL Calcium Level 8.8 8.7-10.4 mg/dL Troponin I High Sensitivity 11 </=34 ng/L Test 09/03/24 17:09 09/03/24 15:03 09/03/24 12:35 09/03/24 11:25 Range/Units Lactic Acid Level 1.8 0.4-2.0 mmol/L Influenza Type A Antigen Positive Negative Influenza Type B Antigen Negative Negative SARS-CoV-2 Antigen (Rapid) Negative NEGATIVE Urine Color Light-yellow Yellow Urine Clarity Turbid H Clear Urine pH 7.5 5.0-9.0 Urine Specific [place] 1.012 1.001-1.035 Urine Protein 3+ H Negative Urine Ketones Negative Negative Urine Blood 1+ H Negative /uL Urine Nitrite Negative Negative Urine Bilirubin Negative Negative Urine Urobilinogen Normal Negative mg/dL Urine Leukocyte Esterase 1+ Negative /uL Urine RBC 2 0 - 4 /hpf Urine WBC 40 0 - 5 /hpf Urine Squamous Epithelial Cells Few <5 /hpf Urine Bacteria Many H None Seen /hpf Urine Glucose 4+ H Normal mg/dL B-Type Natriuretic Peptide 79.48 0-100 pg/mL Beta HCG, Quantitative 1.3 L 1.5-4.2 mIU/mL Microbiology Date/Time Source Procedure Growth Status 09/03/24 17:10 Blood Blood Culture - Preliminary NO GROWTH AFTER 24 HOURS OF INCUBATION. Resulted Assessment EIRK on CKD stage III B likely hemodynamically mediated in setting of sepsis Sepsis Influenza type a infection Chronic obstructive pulmonary disease Diabetes mellitus type 2 History of nephrotic range proteinuria Bilateral hydronephrosis History of CHF: Diastolic Anemia of chronic disease Primary hypertension Hyperlipidemia Hyponatremia Plan/recommendation Dr. Julien -continue IV fluid normal saline 100 mL/hour -kidney function: Elevated creatinine at 2.96, baseline around 1.7-1.9. Significant drop of GFR . Baseline around 35-40. -urinalysis on 07/23/2024: Nephrotic range proteinuria, repeat urinalysis -renal ultrasound on 07/20/2024: Right renal size 11.4 cm, left renal size 12.9 cm. No hydronephrosis -follow with kidney function, urine output. -avoid nephrotoxic drugs -we will closely follow up Addendum Patient seen and examined, plan discussed with resident. Agree with above, we will follow closely Plan discussed with: Patient, Other (RN) ANDREA JOSHUA RESIDENT Sep 05, 2024 12:44 ALIZA JULIEN MD Sep 05, 2024 16:29
[2024-09-05] MEDS: SODIUM CHLORIDE 0.9% 1,000 ML IV SCH (12:51)
[2024-09-05] MEDS: MORPHINE SULFATE INJ 2 MG/ml SYRG IV PRN (14:48)
[2024-09-06] VITALS (7 sets, daily range): BP systolic 97–114; BP diastolic 48–64; PULSE 62–75; RESP 16–21; TEMP 98.3–99.4; O2SAT 95–98
[2024-09-06 04:59] LABS: Basophils # (auto) 0 10 ^3/uL (0-0.2); Basophils % (auto) 0.2 % (0.0-2.0); Eosinophils # (auto) 0 10 ^3/uL (0-0.8); Eosinophils % (auto) 0.2 % (0.0-7.0); Hematocrit 26.5 % (36.0-46.0); Hemoglobin 8.7 g/dL (12.2-16.2); Lymphocytes # (auto) 1.8 10 ^3/uL (0.4-5.4); Lymphocytes % (auto) 21.2 % (10.0-50.0); Mean Corpuscular Hemoglobin 29.8 pg (28.0-32.0); Mean Corpuscular Hgb Conc. 32.7 g/dL (32.0-36.0); Mean Corpuscular Volume 91.2 fL (80.0-100.0); Monocytes # (auto) 0.7 10 ^3/uL (0-1.3); Neutrophils # (auto) 5.7 10 ^3/uL (1.6-8.6); Neutrophils % (auto) 69.4 % (37.0-80.0); Platelet Count (auto) 292 10^3/uL (140-450); Red Blood Cells 2.91 10^6/uL (4.0-5.20); White Blood Cell 8.3 10^3/uL (4.4-10.8)
[2024-09-06 05:11] LABS: Chloride 106 mmol/L (98-107); Potassium 4.6 mmol/L (3.5-5.1)
[2024-09-06 05:12] LABS: Anion Gap 7 (5-15)
[2024-09-06 05:16] LABS: Creatinine, Urine 66.73 mg/dL (30.0-125.0)
[2024-09-06 05:17] LABS: BUN/Creatinine Ratio 14.5 (10.0-20.0)
[2024-09-06 05:19] LABS: Urine Protein/Creatinine Ratio 5.07
[2024-09-06 05:29] LABS: Blood Urea Nitrogen 41 mg/dL (9-23); Calcium 8.4 mg/dL (8.7-10.4); Carbon Dioxide 19 mmol/L (20-31); Glucose 120 mg/dL (74-106); Sodium 132 mmol/L (136-145)
[2024-09-06 05:29] LABS: Protein, Urine 338.2 mg/dL (1-14)
--- NOTE | 2024-09-06 07:18 | DVH ---
CLINICAL INFORMATION: 48 years old, Female; congestive heart failure. TECHNIQUE: Single AP portable chest radiograph was obtained. COMPARISON: XY CHEST PORTABLE on DOS: 09/03/24, XY CHEST PORTABLE on DOS: 07/19/24, XY CHEST XRAY 1 EW on DOS: 04/02/24 FINDINGS: Mild prominence of the pulmonary vasculature. No focal consolidation. No pneumothorax or pleural effu venice visualized. No other significant interval change. IMPRESSION: Mild prominence of the pulmonary vasculature, May suggest a mild degree of pulmonary vascular congest ion in the appropriate clinical setting.
--- NOTE | 2024-09-06 08:13 | DVHPN2 ---
Reviewed: Care Plan, H&P, Labs, Medications, Previous Orders, Radiology Changes from previous H/P or p: No Changes Eyes: No Pain, No Vision change, No Conjunctivae inflammation, No Eyelid inflammation, No Other, No Redness ENT: No Ear pain, No Ear discharge, No Nose pain, No Nose discharge, No Nose congestion, No Mouth pain, No Mouth swelling, No Throat pain, No Throat swelling, No Other Cardiovascular: Chest Pain, Palpitations; No Orthopnea, No Paroxysmal Noc. Dyspnea, No Edema, No Lt Headedness, No Other Respiratory: No Cough, No Dry, No Shortness of breath, No SOB with excertion, No Wheezing, No Hemoptysis, No Pleuritic Pain, No Sputum, No Other Gastrointestinal: No Nausea, No Vomiting, No Abdominal Pain, No Diarrhea, No Constipation, No Melena, No Hematochezia, No Other Genitourinary: No Dysuria, No Frequency, No Incontinence, No Hematuria, No Retention, No Other Musculoskeletal: No other, No neck pain, No shoulder pain, No arm pain, No back pain, No hand pain, No leg pain, No foot pain Skin: No Rash, No Lesions, No Jaundice, No Bruising, No Other Objective Vitals Vital Signs Date Time Temp Pulse Resp B/P (MAP) Pulse Ox O2 Delivery O2 Flow Rate FiO2 09/06/24 06:36 99.0 75 18 98/49 (65) 97 99.0 09/05/24 20:00 Nasal Cannula* 2 28 Intake/Output Intake and Output 09/06/24 07:00 Intake Total 2986 ml Balance 2986 ml Intake Oral 1936 ml IV Total 1050 ml # Voids 13 # Bowel Movements 2 Medications Current Medications Medications Dose Ordered Sig/Mariel Route Start Time Stop Time Status Last Admin Dose Admin Aspirin 81 mg DAILY PO 09/04/24 10:00 09/05/24 08:50 81 MG Atorvastatin Calcium 40 mg HS PO 09/03/24 22:00 09/05/24 21:31 40 MG Metoprolol Tartrate 12.5 mg Q12HR PO 09/03/24 22:00 09/05/24 21:32 12.5 MG Acetaminophen 650 mg Q6HP PRN PO 09/03/24 17:30 09/05/24 17:08 650 MG Zolpidem Tartrate 5 mg QHSP PRN PO 09/03/24 17:30 09/05/24 21:56 5 MG Lorazepam 0.5 mg Q6HP PRN PO 09/03/24 17:30 09/04/24 23:16 0.5 MG Docusate Sodium 100 mg DAILY PO 09/04/24 10:00 09/05/24 08:49 100 MG Ondansetron HCl 4 mg Q4HP PRN IV 09/03/24 17:30 09/04/24 18:59 4 MG Al Hydrox/Mg Hydrox/Simethicone 30 ml Q6HP PRN PO 09/03/24 17:30 Lisinopril 10 mg DAILY PO 09/04/24 10:00 09/05/24 08:49 10 MG Diagnostic Test (Pha) 1 strip IQ4HR 09/03/24 20:00 09/06/24 04:03 1 STRIP Insulin Human Regular IQ4HR SC 09/03/24 20:00 09/05/24 08:57 4 UNITS Dextrose 50 ml UD PRN IV 09/03/24 17:30 Oseltamivir Phosphate 30 mg DAILY PO 09/04/24 10:00 09/09/24 09:59 09/05/24 08:49 30 MG Guaifenesin/ Dextromethorphan 10 ml Q6HR PRN PO 09/03/24 21:30 09/05/24 21:31 10 ML Ertapenem 0.5 gm/ Sodium Chloride 50 ml @ 100 mls/hr DAILY IV 09/06/24 10:00 Morphine Sulfate 2 mg Q4HPRN PRN IV 09/05/24 10:15 09/06/24 06:36 2 MG Sodium Chloride 1,000 ml @ 100 mls/hr Q10H IV 09/05/24 11:15 09/06/24 06:22 100 MLS/HR Laboratory Results Laboratory Tests 09/06/24 04:29 Chemistry Test 09/06/24 04:29 Calcium Level 8.4 mg/dL (8.7-10.4) L Urinalysis Test 09/03/24 12:35 09/06/24 00:12 Urine Color Light-yellow (Yellow) Urine Clarity Turbid (Clear) H Urine pH 7.5 (5.0-9.0) Urine Specific [place] 1.012 (1.001-1.035) Urine Protein 3+ (Negative) H Urine Ketones Negative (Negative) Urine Blood 1+ /uL (Negative) H Urine Nitrite Negative (Negative) Urine Bilirubin Negative (Negative) Urine Urobilinogen Normal mg/dL (Negative) Urine Leukocyte Esterase 1+ /uL (Negative) Urine RBC 2 /hpf (0 - 4) Urine WBC 40 /hpf (0 - 5) Urine Squamous Epithelial Cells Few /hpf (<5) Urine Bacteria Many /hpf (None Seen) H Urine Glucose 4+ mg/dL (Normal) H Urine Creatinine 66.73 mg/dL (30.0-125.0) Urine Protein/Creatinine Ratio 5.07 Urine Sodium 28 mmol/L (40-220) L Urine Total Protein 338.2 mg/dL (1-14) H Microbiology Microbiology Date/Time Source Procedure Growth Status 09/03/24 17:10 Blood Blood Culture - Preliminary NO GROWTH AFTER 48 HOURS OF INCUBATION. Resulted Labs and/or images reviewed: Labs reviewed by me, Image(s) reviewed by me Assessment/Plan Assessment/Plan Chest pain rule out coronary artery disease: Troponin negative x3, cardiology consult for Dr. Atkinson appreciated ejection fraction 60% no further cardiac workup Influenza A positive: Tamiflu UTI: Urine cultures pending, urine cultures 07/01/2024 showed ESBL E coli sensitive to Invanz, we will start Invanz Diabetes Hypertension Chronic congestive heart failure Peripheral neuropathy: Start back home medication gabapentin 400 mg p.o. b.i.d. History of [place] History of kidney stones Acute kidney injury with elevated BUN creatinine, consult by Dr Saha appreciated Chronic current smoker: Counseling Marijuana abuse: Counseling Chronic alcoholic abuse: Counseled Time spent 45 minutes Condition guarded Advanced care planning time 20 minutes Plan discussed with: Patient My Orders Orders - AZIZA GARCIA MD Procedure Category Date Status Time Urine Bacterial [place] 09/05/24 In Process Culture 08:16 *Dr. [facility] CONS 09/05/24 Transmitted -[place] 08:18 Ertapenem Sod Inj PHA 09/06/24 In Process (Invanz) 10:00 Morphine Sulfate PHA 09/05/24 In Process Injection 10:15 Date of Service: Sep 06, 2024 Billing Provider: AZIZA GARCIA MD Common Visit Codes: [id number] INP/OBS CARE(HIGH) AZIZA GARCIA MD Sep 06, 2024 08:13
[2024-09-06] MEDS: PANTOPRAZOLE 40 MG TAB PO ONE (08:40)
[2024-09-06 09:32] LABS: Hepatitis B Surface Antigen Negative (Negative)
[2024-09-06] MEDS ORDERED: DEXTROSE (50%) 50ML SYRG IV PRN (09:45)
[2024-09-06] MEDS: GABAPENTIN 400 MG CAP PO SCH (09:49)
[2024-09-06] MEDS: ERTAPENEM SOD INJ 0.5 GM in SODIUM CHL 0.9% 50 ML IV SCH (09:51)
[2024-09-06 09:54] LABS: Hepatitis C Antibody Negative (Negative)
[2024-09-06] MEDS: ACCU-CHEK COMFORT CURVE STRIP VI SCH (12:00)
[2024-09-06] MEDS: InsuLIN REG 1unit/0.01ml Soln (100units/ml) SC SCH (12:00)
--- NOTE | 2024-09-06 15:31 | DVHPN2 ---
Progress Note Date Seen: Sep 06, 2024 Medical Necessity Reason Pt with a Central, PICC or Fol: No Subjective Patient reports: Feels worse Review of Systems: Deferred Objective vital signs Vital Sign Date Time Temp Pulse Resp B/P (MAP) Pulse Ox O2 Delivery O2 Flow Rate FiO2 09/06/24 13:00 98.3 71 16 103/49 (67) 98 98.3 09/05/24 20:00 Nasal Cannula* 2 28 Total Intake and Output 09/05/24 09/05/24 09/06/24 15:00 23:00 07:00 Intake Total 50 ml 800 ml 2136 ml Balance 50 ml 800 ml 2136 ml medications Current Medications Medications Dose Ordered Sig/Mariel Route Start Time Stop Time Status Last Admin Dose Admin Aspirin 81 mg DAILY PO 09/04/24 10:00 09/06/24 09:50 81 MG Atorvastatin Calcium 40 mg HS PO 09/03/24 22:00 09/05/24 21:31 40 MG Metoprolol Tartrate 12.5 mg Q12HR PO 09/03/24 22:00 09/06/24 09:59 12.5 MG Acetaminophen 650 mg Q6HP PRN PO 09/03/24 17:30 09/06/24 13:09 650 MG Zolpidem Tartrate 5 mg QHSP PRN PO 09/03/24 17:30 09/05/24 21:56 5 MG Lorazepam 0.5 mg Q6HP PRN PO 09/03/24 17:30 09/04/24 23:16 0.5 MG Docusate Sodium 100 mg DAILY PO 09/04/24 10:00 09/06/24 09:50 100 MG Ondansetron HCl 4 mg Q4HP PRN IV 09/03/24 17:30 09/04/24 18:59 4 MG Al Hydrox/Mg Hydrox/Simethicone 30 ml Q6HP PRN PO 09/03/24 17:30 Lisinopril 10 mg DAILY PO 09/04/24 10:00 09/06/24 10:01 10 MG Oseltamivir Phosphate 30 mg DAILY PO 09/04/24 10:00 09/09/24 09:59 09/06/24 09:50 30 MG Guaifenesin/ Dextromethorphan 10 ml Q6HR PRN PO 09/03/24 21:30 09/05/24 21:31 10 ML Ertapenem 0.5 gm/ Sodium Chloride 50 ml @ 100 mls/hr DAILY IV 09/06/24 10:00 09/06/24 09:51 100 MLS/HR Morphine Sulfate 2 mg Q4HPRN PRN IV 09/05/24 10:15 09/06/24 06:36 2 MG Sodium Chloride 1,000 ml @ 100 mls/hr Q10H IV 09/05/24 11:15 09/06/24 06:22 100 MLS/HR Gabapentin 400 mg BID PO 09/06/24 10:00 09/06/24 09:49 400 MG Pantoprazole Sodium 40 mg BID@0600,1700 PO 09/06/24 17:00 Diagnostic Test (Pha) 1 strip Q6HR 09/06/24 12:00 09/06/24 12:00 1 STRIP Insulin Human Regular Q6HR SC 09/06/24 12:00 09/06/24 12:00 3 UNITS Dextrose 50 ml UD PRN IV 09/06/24 09:45 Examination: GENERAL:Normal, HEENT:Abnormal, LUNGS:Abnormal, MSK:Normal, SKIN:Normal, NEURO:Normal, :Normal laboratory and microbiology Laboratory Tests 09/06/24 04:29 Test 09/06/24 04:29 Range/Units Serum Glucose 120 H 74-106 mg/dL Microbiology Date/Time Source Procedure Growth Status 09/03/24 17:10 Blood Blood Culture - Preliminary NO GROWTH AFTER 48 HOURS OF INCUBATION. Resulted Problem List/Assessment/Plan Problem List/Assessment/Plan ERIK on CKD stage III B likely hemodynamically mediated in setting of sepsis Sepsis Influenza type a infection Chronic obstructive pulmonary disease Diabetes mellitus type 2 nephrotic range proteinuria secondary to diabetes Bilateral hydronephrosis History of CHF: Diastolic Anemia of chronic disease Primary hypertension Hyperlipidemia Hyponatremia Recommendations Chest x-ray showing mild vascular congestion received enough fluids. Stop IV fluids today Plan discussed with: Patient ALIZA WOOD MD Sep 06, 2024 15:31
[2024-09-06] MEDS: PANTOPRAZOLE 40 MG TAB PO SCH (18:58)
[2024-09-07] VITALS (14 sets, daily range): BP systolic 115–135; BP diastolic 42–79; PULSE 63–90; RESP 16–20; TEMP 97.8–99.2; O2SAT 94–100
[2024-09-07 06:25] LABS: Anion Gap 10 (5-15); Chloride 106 mmol/L (98-107); Potassium 4.8 mmol/L (3.5-5.1)
[2024-09-07 06:31] LABS: BUN/Creatinine Ratio 14.5 (10.0-20.0)
[2024-09-07 06:34] LABS: Blood Urea Nitrogen 34 mg/dL (9-23); Calcium 8.5 mg/dL (8.7-10.4); Carbon Dioxide 18 mmol/L (20-31); Glucose 202 mg/dL (74-106); Sodium 134 mmol/L (136-145)
--- NOTE | 2024-09-07 08:30 | DVHPN2 ---
Reviewed: Care Plan, H&P, Labs, Medications, Previous Orders, Radiology Changes from previous H/P or p: No Changes Eyes: No Pain, No Vision change, No Conjunctivae inflammation, No Eyelid inflammation, No Other, No Redness ENT: No Ear pain, No Ear discharge, No Nose pain, No Nose discharge, No Nose congestion, No Mouth pain, No Mouth swelling, No Throat pain, No Throat swelling, No Other Cardiovascular: Chest Pain, Palpitations; No Orthopnea, No Paroxysmal Noc. Dyspnea, No Edema, No Lt Headedness, No Other Respiratory: No Cough, No Dry, No Shortness of breath, No SOB with excertion, No Wheezing, No Hemoptysis, No Pleuritic Pain, No Sputum, No Other Gastrointestinal: No Nausea, No Vomiting, No Abdominal Pain, No Diarrhea, No Constipation, No Melena, No Hematochezia, No Other Genitourinary: No Dysuria, No Frequency, No Incontinence, No Hematuria, No Retention, No Other Musculoskeletal: No other, No neck pain, No shoulder pain, No arm pain, No back pain, No hand pain, No leg pain, No foot pain Skin: No Rash, No Lesions, No Jaundice, No Bruising, No Other Objective Vitals Vital Signs Date Time Temp Pulse Resp B/P (MAP) Pulse Ox O2 Delivery O2 Flow Rate FiO2 09/07/24 05:39 74 19 134/63 09/07/24 05:00 99.0 96 99.0 09/06/24 20:00 Nasal Cannula* 2 28 Intake/Output Intake and Output 09/07/24 07:00 Intake Total 1570 ml Balance 1570 ml Intake Oral 1520 ml IV Total 50 ml # Voids 9 Medications Current Medications Medications Dose Ordered Sig/Mariel Route Start Time Stop Time Status Last Admin Dose Admin Aspirin 81 mg DAILY PO 09/04/24 10:00 09/06/24 09:50 81 MG Atorvastatin Calcium 40 mg HS PO 09/03/24 22:00 09/05/24 21:31 40 MG Metoprolol Tartrate 12.5 mg Q12HR PO 09/03/24 22:00 09/06/24 09:59 12.5 MG Acetaminophen 650 mg Q6HP PRN PO 09/03/24 17:30 09/06/24 13:09 650 MG Zolpidem Tartrate 5 mg QHSP PRN PO 09/03/24 17:30 09/05/24 21:56 5 MG Lorazepam 0.5 mg Q6HP PRN PO 09/03/24 17:30 09/04/24 23:16 0.5 MG Docusate Sodium 100 mg DAILY PO 09/04/24 10:00 09/06/24 09:50 100 MG Ondansetron HCl 4 mg Q4HP PRN IV 09/03/24 17:30 09/04/24 18:59 4 MG Al Hydrox/Mg Hydrox/Simethicone 30 ml Q6HP PRN PO 09/03/24 17:30 Oseltamivir Phosphate 30 mg DAILY PO 09/04/24 10:00 09/09/24 09:59 09/06/24 09:50 30 MG Guaifenesin/ Dextromethorphan 10 ml Q6HR PRN PO 09/03/24 21:30 09/05/24 21:31 10 ML Ertapenem 0.5 gm/ Sodium Chloride 50 ml @ 100 mls/hr DAILY IV 09/06/24 10:00 09/06/24 09:51 100 MLS/HR Morphine Sulfate 2 mg Q4HPRN PRN IV 09/05/24 10:15 09/07/24 05:09 2 MG Gabapentin 400 mg BID PO 09/06/24 10:00 09/06/24 09:49 400 MG Pantoprazole Sodium 40 mg BID@0600,1700 PO 09/06/24 17:00 09/07/24 05:15 40 MG Diagnostic Test (Pha) 1 strip Q6HR 09/06/24 12:00 09/07/24 06:16 1 STRIP Insulin Human Regular Q6HR SC 09/06/24 12:00 09/07/24 06:18 4 UNITS Dextrose 50 ml UD PRN IV 09/06/24 09:45 Laboratory Results Laboratory Tests 09/06/24 04:29 09/07/24 05:29 Chemistry Test 09/07/24 05:29 Calcium Level 8.5 mg/dL (8.7-10.4) L Urinalysis Test 09/03/24 12:35 09/06/24 00:12 Urine Color Light-yellow (Yellow) Urine Clarity Turbid (Clear) H Urine pH 7.5 (5.0-9.0) Urine Specific [place] 1.012 (1.001-1.035) Urine Protein 3+ (Negative) H Urine Ketones Negative (Negative) Urine Blood 1+ /uL (Negative) H Urine Nitrite Negative (Negative) Urine Bilirubin Negative (Negative) Urine Urobilinogen Normal mg/dL (Negative) Urine Leukocyte Esterase 1+ /uL (Negative) Urine RBC 2 /hpf (0 - 4) Urine WBC 40 /hpf (0 - 5) Urine Squamous Epithelial Cells Few /hpf (<5) Urine Bacteria Many /hpf (None Seen) H Urine Glucose 4+ mg/dL (Normal) H Urine Creatinine 66.73 mg/dL (30.0-125.0) Urine Protein/Creatinine Ratio 5.07 Urine Sodium 28 mmol/L (40-220) L Urine Total Protein 338.2 mg/dL (1-14) H Microbiology Microbiology Date/Time Source Procedure Growth Status 09/03/24 17:10 Blood Blood Culture - Preliminary NO GROWTH AFTER 72 HOURS OF INCUBATION. Resulted Labs and/or images reviewed: Labs reviewed by me, Image(s) reviewed by me Assessment/Plan Assessment/Plan Chest pain rule out coronary artery disease: Troponin negative x3, cardiology consult for Dr. Atkinson appreciated ejection fraction 60% no further cardiac workup Influenza A positive: Tamiflu UTI: Blood cultures negative, Urine cultures pending, urine cultures 07/01/2024 showed ESBL E coli sensitive to Invanz, we will start Invanz Diabetes Hypertension Chronic congestive heart failure Peripheral neuropathy: Start back home medication gabapentin 400 mg p.o. b.i.d. History of [place] History of kidney stones Acute kidney injury with elevated BUN creatinine, consult by Dr Saha appreciated Nephrotic range proteinuria Chronic current smoker: Counseling Marijuana abuse: Counseling Chronic alcoholic abuse: Counseled Urine cultures still pending Time spent 55 minutes Condition guarded Plan discussed with: Patient My Orders Orders - AZIZA GARCIA MD Procedure Category Date Status Time Glucose Blood PHA 09/06/24 In Process (Accu-Chek Comfort 12:00 Insulin R (Human) PHA 09/06/24 In Process (Insulin R) 12:00 Dextrose 50% Syringe PHA 09/06/24 In Process 09:45 Date of Service: Sep 07, 2024 Billing Provider: AZIZA GARCIA MD Common Visit Codes: [id number] INP/OBS CARE(HIGH) AZIZA GARCIA MD Sep 07, 2024 08:30
--- NOTE | 2024-09-07 11:11 | DVHPN2 ---
Progress Note - Dictate Date Seen: Sep 07, 2024 Medical Necessity Reason Pt with a Central, PICC or Fol: No Subjective BP better today than yesterday vital signs Vital Sign Date Time Temp Pulse Resp B/P (MAP) Pulse Ox O2 Delivery O2 Flow Rate FiO2 09/07/24 10:37 73 135/59 09/07/24 09:00 98.5 18 95 98.5 09/06/24 20:00 Nasal Cannula* 2 28 Total Intake and Output 09/06/24 09/06/24 09/07/24 15:00 23:00 07:00 Intake Total 50 ml 720 ml 800 ml Balance 50 ml 720 ml 800 ml medications Current Medications Medications Dose Ordered Sig/Mariel Route Start Time Stop Time Status Last Admin Dose Admin Aspirin 81 mg DAILY PO 09/04/24 10:00 09/07/24 10:15 81 MG Atorvastatin Calcium 40 mg HS PO 09/03/24 22:00 09/05/24 21:31 40 MG Metoprolol Tartrate 12.5 mg Q12HR PO 09/03/24 22:00 09/07/24 10:37 12.5 MG Acetaminophen 650 mg Q6HP PRN PO 09/03/24 17:30 09/06/24 13:09 650 MG Zolpidem Tartrate 5 mg QHSP PRN PO 09/03/24 17:30 09/05/24 21:56 5 MG Lorazepam 0.5 mg Q6HP PRN PO 09/03/24 17:30 09/04/24 23:16 0.5 MG Docusate Sodium 100 mg DAILY PO 09/04/24 10:00 09/07/24 10:15 100 MG Ondansetron HCl 4 mg Q4HP PRN IV 09/03/24 17:30 09/04/24 18:59 4 MG Al Hydrox/Mg Hydrox/Simethicone 30 ml Q6HP PRN PO 09/03/24 17:30 Oseltamivir Phosphate 30 mg DAILY PO 09/04/24 10:00 09/09/24 09:59 09/07/24 10:16 30 MG Guaifenesin/ Dextromethorphan 10 ml Q6HR PRN PO 09/03/24 21:30 09/05/24 21:31 10 ML Ertapenem 0.5 gm/ Sodium Chloride 50 ml @ 100 mls/hr DAILY IV 09/06/24 10:00 09/07/24 10:14 100 MLS/HR Morphine Sulfate 2 mg Q4HPRN PRN IV 09/05/24 10:15 09/07/24 05:09 2 MG Gabapentin 400 mg BID PO 09/06/24 10:00 09/07/24 10:16 400 MG Pantoprazole Sodium 40 mg BID@0600,1700 PO 09/06/24 17:00 09/07/24 05:15 40 MG Diagnostic Test (Pha) 1 strip Q6HR 09/06/24 12:00 09/07/24 06:16 1 STRIP Insulin Human Regular Q6HR SC 09/06/24 12:00 09/07/24 06:18 4 UNITS Dextrose 50 ml UD PRN IV 09/06/24 09:45 Albuterol 2.5 mg Q4HR NEB 09/07/24 12:00 objective GENERAL:Normal, HEENT:Abnormal, LUNGS:Abnormal, MSK:Normal, SKIN:Normal, NEURO:Normal, :Normal laboratory and microbiology Laboratory Tests 09/07/24 05:29 09/06/24 04:29 Test 09/07/24 05:29 Range/Units Serum Glucose 202 H 74-106 mg/dL Assessment/Plan ERIK on CKD stage III B likely hemodynamically mediated in setting of sepsis Sepsis Influenza type a infection Chronic obstructive pulmonary disease Diabetes mellitus type 2 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
[2024-09-07] MEDS ORDERED: ALBUTEROL SULF 2.5 MG/0.5ML(0.5%) NEB SOLN NEB SCH (12:00)
[2024-09-07] MEDS: ALBUTEROL SULF 2.5 MG/0.5ML(0.5%) NEB SOLN NEB SCH (14:28)
[2024-09-08] VITALS (20 sets, daily range): BP systolic 111–132; BP diastolic 45–54; PULSE 68–90; RESP 16–20; TEMP 98–99.1; O2SAT 91–100
--- NOTE | 2024-09-08 08:14 | DVHPN2 ---
Reviewed: Care Plan, H&P, Labs, Medications, Previous Orders, Radiology Changes from previous H/P or p: No Changes Eyes: No Pain, No Vision change, No Conjunctivae inflammation, No Eyelid inflammation, No Other, No Redness ENT: No Ear pain, No Ear discharge, No Nose pain, No Nose discharge, No Nose congestion, No Mouth pain, No Mouth swelling, No Throat pain, No Throat swelling, No Other Cardiovascular: Chest Pain, Palpitations; No Orthopnea, No Paroxysmal Noc. Dyspnea, No Edema, No Lt Headedness, No Other Respiratory: No Cough, No Dry, No Shortness of breath, No SOB with excertion, No Wheezing, No Hemoptysis, No Pleuritic Pain, No Sputum, No Other Gastrointestinal: No Nausea, No Vomiting, No Abdominal Pain, No Diarrhea, No Constipation, No Melena, No Hematochezia, No Other Genitourinary: No Dysuria, No Frequency, No Incontinence, No Hematuria, No Retention, No Other Musculoskeletal: No other, No neck pain, No shoulder pain, No arm pain, No back pain, No hand pain, No leg pain, No foot pain Skin: No Rash, No Lesions, No Jaundice, No Bruising, No Other Objective Vitals Vital Signs Date Time Temp Pulse Resp B/P (MAP) Pulse Ox O2 Delivery O2 Flow Rate FiO2 09/08/24 07:08 70 18 99 09/08/24 07:02 Nasal Cannula* 2 28 09/08/24 05:00 98.0 111/45 (67) 98.0 Intake/Output Intake and Output 09/08/24 07:00 Intake Total 1250 ml Output Total 1000 ml Balance 250 ml Intake Oral 1200 ml IV Total 50 ml Output Urine Total 1000 ml # Voids 1 Medications Current Medications Medications Dose Ordered Sig/Mariel Route Start Time Stop Time Status Last Admin Dose Admin Aspirin 81 mg DAILY PO 09/04/24 10:00 09/07/24 10:15 81 MG Atorvastatin Calcium 40 mg HS PO 09/03/24 22:00 09/07/24 21:02 40 MG Metoprolol Tartrate 12.5 mg Q12HR PO 09/03/24 22:00 09/07/24 21:07 12.5 MG Acetaminophen 650 mg Q6HP PRN PO 09/03/24 17:30 09/06/24 13:09 650 MG Zolpidem Tartrate 5 mg QHSP PRN PO 09/03/24 17:30 09/05/24 21:56 5 MG Lorazepam 0.5 mg Q6HP PRN PO 09/03/24 17:30 09/04/24 23:16 0.5 MG Docusate Sodium 100 mg DAILY PO 09/04/24 10:00 09/07/24 10:15 100 MG Ondansetron HCl 4 mg Q4HP PRN IV 09/03/24 17:30 09/04/24 18:59 4 MG Al Hydrox/Mg Hydrox/Simethicone 30 ml Q6HP PRN PO 09/03/24 17:30 Oseltamivir Phosphate 30 mg DAILY PO 09/04/24 10:00 09/09/24 09:59 09/07/24 10:16 30 MG Guaifenesin/ Dextromethorphan 10 ml Q6HR PRN PO 09/03/24 21:30 09/05/24 21:31 10 ML Ertapenem 0.5 gm/ Sodium Chloride 50 ml @ 100 mls/hr DAILY IV 09/06/24 10:00 09/07/24 10:14 100 MLS/HR Morphine Sulfate 2 mg Q4HPRN PRN IV 09/05/24 10:15 09/08/24 00:40 2 MG Gabapentin 400 mg BID PO 09/06/24 10:00 09/07/24 21:02 400 MG Pantoprazole Sodium 40 mg BID@0600,1700 PO 09/06/24 17:00 09/08/24 06:00 40 MG Diagnostic Test (Pha) 1 strip Q6HR 09/06/24 12:00 09/08/24 06:00 1 STRIP Insulin Human Regular Q6HR SC 09/06/24 12:00 09/08/24 06:07 4 UNITS Dextrose 50 ml UD PRN IV 09/06/24 09:45 Albuterol 2.5 mg Q4HR NEB 09/07/24 14:00 09/08/24 07:02 2.5 MG Laboratory Results Laboratory Tests 09/06/24 04:29 09/07/24 05:29 Urinalysis Test 09/03/24 12:35 09/06/24 00:12 Urine Color Light-yellow (Yellow) Urine Clarity Turbid (Clear) H Urine pH 7.5 (5.0-9.0) Urine Specific [place] 1.012 (1.001-1.035) Urine Protein 3+ (Negative) H Urine Ketones Negative (Negative) Urine Blood 1+ /uL (Negative) H Urine Nitrite Negative (Negative) Urine Bilirubin Negative (Negative) Urine Urobilinogen Normal mg/dL (Negative) Urine Leukocyte Esterase 1+ /uL (Negative) Urine RBC 2 /hpf (0 - 4) Urine WBC 40 /hpf (0 - 5) Urine Squamous Epithelial Cells Few /hpf (<5) Urine Bacteria Many /hpf (None Seen) H Urine Glucose 4+ mg/dL (Normal) H Urine Creatinine 66.73 mg/dL (30.0-125.0) Urine Protein/Creatinine Ratio 5.07 Urine Sodium 28 mmol/L (40-220) L Urine Total Protein 338.2 mg/dL (1-14) H Microbiology Microbiology Date/Time Source Procedure Growth Status 09/06/24 00:12 Voided Urine Urine Culture - Preliminary Resulted 09/03/24 17:10 Blood Blood Culture - Preliminary NO GROWTH AFTER 72 HOURS OF INCUBATION. Resulted Labs and/or images reviewed: Labs reviewed by me, Image(s) reviewed by me Assessment/Plan Assessment/Plan Chest pain rule out coronary artery disease: Troponin negative x3, cardiology consult for Dr. Atkinson appreciated ejection fraction 60% no further cardiac workup Influenza A positive: Tamiflu UTI: Blood cultures negative, Urine cultures negative preliminary, urine cultures 07/01/2024 showed ESBL E coli sensitive to Invanz, we will start Invanz Diabetes Hypertension Chronic congestive heart failure Peripheral neuropathy: Start home medication gabapentin 400 mg p.o. b.i.d. History of [place] History of kidney stones Acute kidney injury with elevated BUN creatinine, consult by Dr Saha appreciated Nephrotic range proteinuria Chronic current smoker: Counseling Marijuana abuse: Counseling Chronic alcoholic abuse: Counseled Patient is still complaining of shortness of breath: Possible DC Tuesday Time spent 55 minutes Condition guarded Plan discussed with: Patient My Orders Orders - AZIZA GARCIA MD Procedure Category Date Status Time Albuterol Medneb PHA 09/07/24 In Process (Ventolin Medneb) 14:00 Date of Service: Sep 08, 2024 Billing Provider: AZIZA GARCIA MD Common Visit Codes: [id number] INP/OBS CARE(HIGH) AZIZA GARCIA MD Sep 08, 2024 08:14
--- NOTE | 2024-09-08 14:09 | DVHPN2 ---
Progress Note - Dictate Date Seen: Sep 08, 2024 Medical Necessity Reason Pt with a Central, PICC or Fol: No Subjective NAD vital signs Vital Sign Date Time Temp Pulse Resp B/P (MAP) Pulse Ox O2 Delivery O2 Flow Rate FiO2 09/08/24 13:00 99.1 74 18 132/53 (79) 96 99.1 09/08/24 11:27 Nasal Cannula 2.0 09/08/24 11:27 28 Total Intake and Output 09/07/24 09/07/24 09/08/24 15:00 23:00 07:00 Intake Total 50 ml 800 ml 400 ml Output Total 1000 ml Balance 50 ml -200 ml 400 ml medications Current Medications Medications Dose Ordered Sig/Mariel Route Start Time Stop Time Status Last Admin Dose Admin Aspirin 81 mg DAILY PO 09/04/24 10:00 09/08/24 10:08 81 MG Atorvastatin Calcium 40 mg HS PO 09/03/24 22:00 09/07/24 21:02 40 MG Metoprolol Tartrate 12.5 mg Q12HR PO 09/03/24 22:00 09/08/24 10:08 12.5 MG Acetaminophen 650 mg Q6HP PRN PO 09/03/24 17:30 09/06/24 13:09 650 MG Zolpidem Tartrate 5 mg QHSP PRN PO 09/03/24 17:30 09/05/24 21:56 5 MG Lorazepam 0.5 mg Q6HP PRN PO 09/03/24 17:30 09/04/24 23:16 0.5 MG Docusate Sodium 100 mg DAILY PO 09/04/24 10:00 09/08/24 10:06 100 MG Ondansetron HCl 4 mg Q4HP PRN IV 09/03/24 17:30 09/04/24 18:59 4 MG Al Hydrox/Mg Hydrox/Simethicone 30 ml Q6HP PRN PO 09/03/24 17:30 Oseltamivir Phosphate 30 mg DAILY PO 09/04/24 10:00 09/09/24 09:59 09/08/24 10:06 30 MG Guaifenesin/ Dextromethorphan 10 ml Q6HR PRN PO 09/03/24 21:30 09/05/24 21:31 10 ML Ertapenem 0.5 gm/ Sodium Chloride 50 ml @ 100 mls/hr DAILY IV 09/06/24 10:00 09/08/24 10:09 100 MLS/HR Morphine Sulfate 2 mg Q4HPRN PRN IV 09/05/24 10:15 09/08/24 00:40 2 MG Gabapentin 400 mg BID PO 09/06/24 10:00 09/08/24 10:06 400 MG Pantoprazole Sodium 40 mg BID@0600,1700 PO 09/06/24 17:00 09/08/24 06:00 40 MG Diagnostic Test (Pha) 1 strip Q6HR 09/06/24 12:00 09/08/24 12:08 1 STRIP Insulin Human Regular Q6HR SC 09/06/24 12:00 09/08/24 12:31 4 UNITS Dextrose 50 ml UD PRN IV 09/06/24 09:45 Albuterol 2.5 mg Q4HR NEB 09/07/24 14:00 09/08/24 11:27 2.5 MG objective GENERAL:Normal, HEENT:Abnormal, LUNGS:Abnormal, MSK:Normal, SKIN:Normal, NEURO:Normal, :Normal laboratory and microbiology Laboratory Tests 09/07/24 05:29 09/06/24 04:29 Test 09/07/24 05:29 Range/Units Serum Glucose 202 H 74-106 mg/dL Assessment/Plan ERIK on CKD stage III B likely hemodynamically mediated in setting of sepsis Sepsis Influenza type a infection Chronic obstructive pulmonary disease Diabetes mellitus type 2 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
[2024-09-08] MEDS: LISINOPRIL 5 MG TAB PO SCH (15:32)
[2024-09-08 15:40] LABS: Potassium 4.7 mmol/L (3.5-5.1)
[2024-09-08 15:41] LABS: Anion Gap 9 (5-15)
[2024-09-08 15:46] LABS: BUN/Creatinine Ratio 14.8 (10.0-20.0)
[2024-09-08 15:57] LABS: Blood Urea Nitrogen 35 mg/dL (9-23); Calcium 8.6 mg/dL (8.7-10.4); Carbon Dioxide 17 mmol/L (20-31); Chloride 109 mmol/L (98-107); Glucose 253 mg/dL (74-106); Sodium 135 mmol/L (136-145)
[2024-09-09] VITALS (20 sets, daily range): BP systolic 122–137; BP diastolic 48–70; PULSE 69–85; RESP 16–22; TEMP 96.7–99.1; O2SAT 92–100
[2024-09-09 06:25] LABS: Anion Gap 9 (5-15)
[2024-09-09 06:26] LABS: Calcium 8.9 mg/dL (8.7-10.4)
[2024-09-09 06:32] LABS: BUN/Creatinine Ratio 14.9 (10.0-20.0)
[2024-09-09 06:44] LABS: Blood Urea Nitrogen 33 mg/dL (9-23); Carbon Dioxide 18 mmol/L (20-31); Chloride 109 mmol/L (98-107); Glucose 174 mg/dL (74-106); Potassium 5.4 mmol/L (3.5-5.1); Sodium 136 mmol/L (136-145)
--- NOTE | 2024-09-09 07:25 | DVHPN2 ---
Reviewed: Care Plan, H&P, Labs, Medications, Previous Orders, Radiology Changes from previous H/P or p: No Changes Eyes: No Pain, No Vision change, No Conjunctivae inflammation, No Eyelid inflammation, No Other, No Redness ENT: No Ear pain, No Ear discharge, No Nose pain, No Nose discharge, No Nose congestion, No Mouth pain, No Mouth swelling, No Throat pain, No Throat swelling, No Other Cardiovascular: Chest Pain, Palpitations; No Orthopnea, No Paroxysmal Noc. Dyspnea, No Edema, No Lt Headedness, No Other Respiratory: No Cough, No Dry, No Shortness of breath, No SOB with excertion, No Wheezing, No Hemoptysis, No Pleuritic Pain, No Sputum, No Other Gastrointestinal: No Nausea, No Vomiting, No Abdominal Pain, No Diarrhea, No Constipation, No Melena, No Hematochezia, No Other Genitourinary: No Dysuria, No Frequency, No Incontinence, No Hematuria, No Retention, No Other Musculoskeletal: No other, No neck pain, No shoulder pain, No arm pain, No back pain, No hand pain, No leg pain, No foot pain Skin: No Rash, No Lesions, No Jaundice, No Bruising, No Other Objective Vitals Vital Signs Date Time Temp Pulse Resp B/P (MAP) Pulse Ox O2 Delivery O2 Flow Rate FiO2 09/09/24 06:04 76 20 97 09/09/24 05:58 Nasal Cannula* 2 28 09/09/24 05:00 99.0 133/48 (76) 99.0 Intake/Output Intake and Output 09/09/24 07:00 Intake Total 1940 ml Output Total 1000 ml Balance 940 ml Intake Oral 1940 ml Output Urine Total 1000 ml # Voids 3 # Bowel Movements 1 Medications Current Medications Medications Dose Ordered Sig/Mariel Route Start Time Stop Time Status Last Admin Dose Admin Aspirin 81 mg DAILY PO 09/04/24 10:00 09/08/24 10:08 81 MG Atorvastatin Calcium 40 mg HS PO 09/03/24 22:00 09/08/24 21:23 40 MG Metoprolol Tartrate 12.5 mg Q12HR PO 09/03/24 22:00 09/08/24 21:24 12.5 MG Acetaminophen 650 mg Q6HP PRN PO 09/03/24 17:30 09/06/24 13:09 650 MG Zolpidem Tartrate 5 mg QHSP PRN PO 09/03/24 17:30 09/05/24 21:56 5 MG Lorazepam 0.5 mg Q6HP PRN PO 09/03/24 17:30 09/04/24 23:16 0.5 MG Docusate Sodium 100 mg DAILY PO 09/04/24 10:00 09/08/24 10:06 100 MG Ondansetron HCl 4 mg Q4HP PRN IV 09/03/24 17:30 09/04/24 18:59 4 MG Al Hydrox/Mg Hydrox/Simethicone 30 ml Q6HP PRN PO 09/03/24 17:30 Oseltamivir Phosphate 30 mg DAILY PO 09/04/24 10:00 09/09/24 09:59 09/08/24 10:06 30 MG Guaifenesin/ Dextromethorphan 10 ml Q6HR PRN PO 09/03/24 21:30 09/05/24 21:31 10 ML Ertapenem 0.5 gm/ Sodium Chloride 50 ml @ 100 mls/hr DAILY IV 09/06/24 10:00 09/08/24 10:09 100 MLS/HR Morphine Sulfate 2 mg Q4HPRN PRN IV 09/05/24 10:15 09/09/24 04:14 2 MG Gabapentin 400 mg BID PO 09/06/24 10:00 09/08/24 21:23 400 MG Pantoprazole Sodium 40 mg BID@0600,1700 PO 09/06/24 17:00 09/09/24 05:47 40 MG Diagnostic Test (Pha) 1 strip Q6HR 09/06/24 12:00 09/09/24 05:56 1 STRIP Insulin Human Regular Q6HR SC 09/06/24 12:00 09/09/24 05:58 3 UNITS Dextrose 50 ml UD PRN IV 09/06/24 09:45 Albuterol 2.5 mg Q4HR NEB 09/07/24 14:00 09/09/24 05:58 2.5 MG Lisinopril 2.5 mg DAILY PO 09/08/24 14:15 09/08/24 15:32 2.5 MG Laboratory Results Laboratory Tests 09/06/24 04:29 09/09/24 05:18 Chemistry Test 09/08/24 15:01 09/09/24 05:18 Calcium Level 8.6 mg/dL (8.7-10.4) L 8.9 mg/dL (8.7-10.4) HgA1c, TSH Test 09/08/24 15:01 Hemoglobin A1c 10.9 % A1C (<5.7) H Urinalysis Test 09/03/24 12:35 09/06/24 00:12 Urine Color Light-yellow (Yellow) Urine Clarity Turbid (Clear) H Urine pH 7.5 (5.0-9.0) Urine Specific [place] 1.012 (1.001-1.035) Urine Protein 3+ (Negative) H Urine Ketones Negative (Negative) Urine Blood 1+ /uL (Negative) H Urine Nitrite Negative (Negative) Urine Bilirubin Negative (Negative) Urine Urobilinogen Normal mg/dL (Negative) Urine Leukocyte Esterase 1+ /uL (Negative) Urine RBC 2 /hpf (0 - 4) Urine WBC 40 /hpf (0 - 5) Urine Squamous Epithelial Cells Few /hpf (<5) Urine Bacteria Many /hpf (None Seen) H Urine Glucose 4+ mg/dL (Normal) H Urine Creatinine 66.73 mg/dL (30.0-125.0) Urine Protein/Creatinine Ratio 5.07 Urine Sodium 28 mmol/L (40-220) L Urine Total Protein 338.2 mg/dL (1-14) H Microbiology Microbiology Date/Time Source Procedure Growth Status 09/06/24 00:12 Voided Urine Urine Culture - Final Complete 09/03/24 17:10 Blood Blood Culture - Final NO GROWTH AFTER 5 DAYS OF INCUBATION. Complete Labs and/or images reviewed: Labs reviewed by me, Image(s) reviewed by me Assessment/Plan Assessment/Plan Chest pain rule out coronary artery disease: Troponin negative x3, cardiology consult for Dr. Atkinson appreciated ejection fraction 60% no further cardiac workup Influenza A positive: Tamiflu UTI: Blood cultures negative, Urine cultures negative preliminary, urine cultures 07/01/2024 showed ESBL E coli sensitive to Invanz, we will start Invanz Diabetes Hypertension Chronic congestive heart failure Peripheral neuropathy: Start home medication gabapentin 400 mg p.o. b.i.d. History of [place] History of kidney stones Acute kidney injury with elevated BUN creatinine, consult by Dr Saha appreciated Nephrotic range proteinuria Chronic current smoker: Counseling Marijuana abuse: Counseling Chronic alcoholic abuse: Counseled Patient is still complaining of shortness of breath: Possible DC Tuesday Time spent 45 minutes Condition guarded Plan discussed with: Patient Date of Service: Sep 09, 2024 Billing Provider: AZIZA GARCIA MD Common Visit Codes: [id number] INP/OBS CARE(HIGH) AZIZA GARCIA MD Sep 09, 2024 07:25
--- NOTE | 2024-09-09 14:06 | DVHPN2 ---
Progress Note Date Seen: Sep 09, 2024 Medical Necessity Reason Pt with a Central, PICC or Fol: No Objective vital signs Vital Sign Date Time Temp Pulse Resp B/P (MAP) Pulse Ox O2 Delivery O2 Flow Rate FiO2 09/09/24 10:47 85 122/70 09/09/24 10:04 20 96 09/09/24 09:58 Room Air 0.0 09/09/24 09:58 21 09/09/24 09:00 98.3 98.3 Total Intake and Output 09/08/24 09/08/24 09/09/24 15:00 23:00 07:00 Intake Total 490 ml 850 ml 600 ml Output Total 1000 ml Balance 490 ml -150 ml 600 ml medications Current Medications Medications Dose Ordered Sig/Mariel Route Start Time Stop Time Status Last Admin Dose Admin Aspirin 81 mg DAILY PO 09/04/24 10:00 09/09/24 10:48 81 MG Atorvastatin Calcium 40 mg HS PO 09/03/24 22:00 09/08/24 21:23 40 MG Metoprolol Tartrate 12.5 mg Q12HR PO 09/03/24 22:00 09/09/24 10:47 12.5 MG Acetaminophen 650 mg Q6HP PRN PO 09/03/24 17:30 09/06/24 13:09 650 MG Zolpidem Tartrate 5 mg QHSP PRN PO 09/03/24 17:30 09/05/24 21:56 5 MG Lorazepam 0.5 mg Q6HP PRN PO 09/03/24 17:30 09/04/24 23:16 0.5 MG Docusate Sodium 100 mg DAILY PO 09/04/24 10:00 09/09/24 10:47 100 MG Ondansetron HCl 4 mg Q4HP PRN IV 09/03/24 17:30 09/04/24 18:59 4 MG Al Hydrox/Mg Hydrox/Simethicone 30 ml Q6HP PRN PO 09/03/24 17:30 Guaifenesin/ Dextromethorphan 10 ml Q6HR PRN PO 09/03/24 21:30 09/05/24 21:31 10 ML Ertapenem 0.5 gm/ Sodium Chloride 50 ml @ 100 mls/hr DAILY IV 09/06/24 10:00 09/09/24 10:49 100 MLS/HR Morphine Sulfate 2 mg Q4HPRN PRN IV 09/05/24 10:15 09/09/24 04:14 2 MG Gabapentin 400 mg BID PO 09/06/24 10:00 09/09/24 10:47 400 MG Pantoprazole Sodium 40 mg BID@0600,1700 PO 09/06/24 17:00 09/09/24 05:47 40 MG Diagnostic Test (Pha) 1 strip Q6HR 09/06/24 12:00 09/09/24 12:31 1 STRIP Insulin Human Regular Q6HR SC 09/06/24 12:00 09/09/24 12:32 4 UNITS Dextrose 50 ml UD PRN IV 09/06/24 09:45 Albuterol 2.5 mg Q4HR NEB 09/07/24 14:00 09/09/24 09:58 2.5 MG Lisinopril 2.5 mg DAILY PO 09/08/24 14:15 09/08/24 15:32 2.5 MG Examination: GENERAL:Normal, CVS:Normal, ABDOMEN:Normal laboratory and microbiology Laboratory Tests 09/09/24 05:18 09/06/24 04:29 Test 09/09/24 05:18 Range/Units Serum Glucose 174 H 74-106 mg/dL Microbiology Date/Time Source Procedure Growth Status 09/06/24 00:12 Voided Urine Urine Culture - Final Complete 09/03/24 17:10 Blood Blood Culture - Final NO GROWTH AFTER 5 DAYS OF INCUBATION. 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 will hold for now low salt diet glycemic control low salt diet currently on ABX Plan discussed with: Patient My Orders My Orders Orders - NOHELIA GUO MD Procedure Category Date Status Time Lisinopril Tablet PHA 09/08/24 In Process (Zestril Tablet) 14:15 Dietary Evaluation Review Recommendations by RD: Dietary education by RD Comments: 1. Provided dietary education to patient and adult male visitor. Explaination of the relationship b/w diet and disease. Reviewed HbA1c guidelines and mechanism of action for diabetes medication. Introduced plate method as guide to healthy eating. Emphasized the importance of pairing carbohydrates with protein and reducing intake of added sugar. 2. Refer patient to outpatient RD and/or [facility] Expected Outcomes/Goals: Patient dietary habits and labs to improve Patient diabetes knowledge to improve NOHELIA GUO MD Sep 09, 2024 14:06
[2024-09-09] MEDS: SODIUM ZIRCONIUM CYCL 10 GM PAK PO SCH (15:03)
[2024-09-10] VITALS (14 sets, daily range): BP systolic 132–144; BP diastolic 67–98; PULSE 69–92; RESP 14–20; TEMP 36.5; O2SAT 92–100
[2024-09-10] MEDS ORDERED: DEXTROSE (50%) 50ML SYRG IV PRN
[2024-09-10] MEDS: InsuLIN REG 1unit/0.01ml Soln (100units/ml) SC SCH
[2024-09-10] MEDS: ACCU-CHEK COMFORT CURVE STRIP VI SCH (00:17)
[2024-09-10] MEDS ORDERED: CIPR-173 PO (08:14)
--- NOTE | 2024-09-10 08:15 | DVHPN2 ---
Reviewed: Care Plan, H&P, Labs, Medications, Previous Orders, Radiology Changes from previous H/P or p: No Changes Eyes: No Pain, No Vision change, No Conjunctivae inflammation, No Eyelid inflammation, No Other, No Redness ENT: No Ear pain, No Ear discharge, No Nose pain, No Nose discharge, No Nose congestion, No Mouth pain, No Mouth swelling, No Throat pain, No Throat swelling, No Other Cardiovascular: Chest Pain, Palpitations; No Orthopnea, No Paroxysmal Noc. Dyspnea, No Edema, No Lt Headedness, No Other Respiratory: No Cough, No Dry, No Shortness of breath, No SOB with excertion, No Wheezing, No Hemoptysis, No Pleuritic Pain, No Sputum, No Other Gastrointestinal: No Nausea, No Vomiting, No Abdominal Pain, No Diarrhea, No Constipation, No Melena, No Hematochezia, No Other Genitourinary: No Dysuria, No Frequency, No Incontinence, No Hematuria, No Retention, No Other Musculoskeletal: No other, No neck pain, No shoulder pain, No arm pain, No back pain, No hand pain, No leg pain, No foot pain Skin: No Rash, No Lesions, No Jaundice, No Bruising, No Other Objective Vitals Vital Signs Date Time Temp Pulse Resp B/P (MAP) Pulse Ox O2 Delivery O2 Flow Rate FiO2 09/10/24 06:18 84 14 100 09/10/24 06:12 Nasal Cannula* 1 24 09/10/24 05:00 98.2 139/75 (96) 98.2 Intake/Output Intake and Output 09/10/24 07:00 Intake Total 2375 ml Output Total 1000 ml Balance 1375 ml Intake Oral 2325 ml IV Total 50 ml Output Urine Total 1000 ml # Voids 7 # Bowel Movements 1 Medications Current Medications Medications Dose Ordered Sig/Mariel Route Start Time Stop Time Status Last Admin Dose Admin Aspirin 81 mg DAILY PO 09/04/24 10:00 09/09/24 10:48 81 MG Atorvastatin Calcium 40 mg HS PO 09/03/24 22:00 09/09/24 21:51 40 MG Metoprolol Tartrate 12.5 mg Q12HR PO 09/03/24 22:00 09/09/24 21:52 12.5 MG Acetaminophen 650 mg Q6HP PRN PO 09/03/24 17:30 09/06/24 13:09 650 MG Zolpidem Tartrate 5 mg QHSP PRN PO 09/03/24 17:30 09/05/24 21:56 5 MG Lorazepam 0.5 mg Q6HP PRN PO 09/03/24 17:30 09/04/24 23:16 0.5 MG Docusate Sodium 100 mg DAILY PO 09/04/24 10:00 09/09/24 10:47 100 MG Ondansetron HCl 4 mg Q4HP PRN IV 09/03/24 17:30 09/04/24 18:59 4 MG Al Hydrox/Mg Hydrox/Simethicone 30 ml Q6HP PRN PO 09/03/24 17:30 Guaifenesin/ Dextromethorphan 10 ml Q6HR PRN PO 09/03/24 21:30 09/05/24 21:31 10 ML Ertapenem 0.5 gm/ Sodium Chloride 50 ml @ 100 mls/hr DAILY IV 09/06/24 10:00 09/09/24 10:49 100 MLS/HR Morphine Sulfate 2 mg Q4HPRN PRN IV 09/05/24 10:15 09/10/24 00:06 2 MG Gabapentin 400 mg BID PO 09/06/24 10:00 09/09/24 21:52 400 MG Pantoprazole Sodium 40 mg BID@0600,1700 PO 09/06/24 17:00 09/10/24 05:52 40 MG Albuterol 2.5 mg Q4HR NEB 09/07/24 14:00 09/10/24 06:10 2.5 MG Diagnostic Test (Pha) 1 strip IQ4HR 09/10/24 00:00 09/10/24 04:31 1 STRIP Insulin Human Regular IQ4HR SC 09/10/24 00:00 09/10/24 04:33 12 UNITS Dextrose 50 ml UD PRN IV 09/10/24 00:00 Laboratory Results Laboratory Tests 09/06/24 04:29 09/09/24 05:18 Urinalysis Test 09/03/24 12:35 09/06/24 00:12 Urine Color Light-yellow (Yellow) Urine Clarity Turbid (Clear) H Urine pH 7.5 (5.0-9.0) Urine Specific [place] 1.012 (1.001-1.035) Urine Protein 3+ (Negative) H Urine Ketones Negative (Negative) Urine Blood 1+ /uL (Negative) H Urine Nitrite Negative (Negative) Urine Bilirubin Negative (Negative) Urine Urobilinogen Normal mg/dL (Negative) Urine Leukocyte Esterase 1+ /uL (Negative) Urine RBC 2 /hpf (0 - 4) Urine WBC 40 /hpf (0 - 5) Urine Squamous Epithelial Cells Few /hpf (<5) Urine Bacteria Many /hpf (None Seen) H Urine Glucose 4+ mg/dL (Normal) H Urine Creatinine 66.73 mg/dL (30.0-125.0) Urine Protein/Creatinine Ratio 5.07 Urine Sodium 28 mmol/L (40-220) L Urine Total Protein 338.2 mg/dL (1-14) H Microbiology Microbiology Date/Time Source Procedure Growth Status 09/06/24 00:12 Voided Urine Urine Culture - Final Complete 09/03/24 17:10 Blood Blood Culture - Final NO GROWTH AFTER 5 DAYS OF INCUBATION. Complete Labs and/or images reviewed: Labs reviewed by me, Image(s) reviewed by me Assessment/Plan Assessment/Plan Chest pain coronary artery disease ruled out Troponin negative x3, cardiology consult for Dr. Atkinson appreciated ejection fraction 60% no further cardiac workup Influenza A positive: Completed course of Tamiflu Acute hypoxic respiratory failure oxygen by nasal cannula UTI: Blood cultures negative, urine cultures negative, treated with Invanz, we will DC home on Cipro Diabetes Hypertension Acute on chronic Chronic congestive heart failure Peripheral neuropathy: Medication gabapentin continued History of [place] History of kidney stones Acute kidney injury with elevated BUN creatinine, consult by Dr Saha appreciated Nephrotic range proteinuria Chronic current smoker: Counseling Marijuana abuse: Counseling Chronic alcoholic abuse: Counseled ABG ordered and patient will be supplied with the home oxygen if she qualifies Time spent 45 minutes Condition guarded Plan discussed with: Patient Date of Service: Sep 10, 2024 Billing Provider: AZIZA GARCIA MD Common Visit Codes: [id number] INP/OBS CARE(HIGH) AZIZA GARCIA MD Sep 10, 2024 08:15
--- NOTE | 2024-09-10 08:23 | DVHDS2 ---
Discharge Summary Date of Admission Sep 03, 2024 at 17:23 Date of Discharge: Sep 10, 2024 Admitting Diagnosis Shortness of breaths and chest pain Wounds: None Labs/Diagnostic Data: Laboratory Results Test 09/10/24 04:25 09/09/24 05:18 09/08/24 15:01 09/06/24 04:29 POC Glucose 314 mg/dl (70-106) Sodium Level 136 mmol/L (136-145) Potassium Level 5.4 mmol/L (3.5-5.1) Chloride Level 109 mmol/L (98-107) Carbon Dioxide Level 18 mmol/L (20-31) Anion Gap 9 (5-15) Blood Urea Nitrogen 33 mg/dL (9-23) Creatinine 2.22 mg/dL (0.550-1.02) Glomerular Filtration Rate Calc 27 mL/min (>90) BUN/Creatinine Ratio 14.9 (10.0-20.0) Serum Glucose 174 mg/dL (74-106) Calcium Level 8.9 mg/dL (8.7-10.4) Hemoglobin A1c 10.9 % A1C (<5.7) White Blood Count 8.3 10^3/uL (4.4-10.8) Red Blood Count 2.91 10^6/uL (4.0-5.20) Hemoglobin 8.7 g/dL (12.2-16.2) Hematocrit 26.5 % (36.0-46.0) Mean Corpuscular Volume 91.2 fL (80.0-100.0) Mean Corpuscular Hemoglobin 29.8 pg (28.0-32.0) Mean Corpuscular Hemoglobin Concent 32.7 g/dL (32.0-36.0) Red Cell Distribution Width 16.0 % (11.8-14.3) Platelet Count 292 10^3/uL (140-450) Mean Platelet Volume 9.2 fL (6.9-10.8) Neutrophils (%) (Auto) 69.4 % (37.0-80.0) Lymphocytes (%) (Auto) 21.2 % (10.0-50.0) Monocytes (%) (Auto) 9.0 % (0.0-12.0) Eosinophils (%) (Auto) 0.2 % (0.0-7.0) Basophils (%) (Auto) 0.2 % (0.0-2.0) Neutrophils # (Auto) 5.7 10 ^3/uL (1.6-8.6) Lymphocytes # (Auto) 1.8 10 ^3/uL (0.4-5.4) Monocytes # (Auto) 0.7 10 ^3/uL (0-1.3) Eosinophils # (Auto) 0 10 ^3/uL (0-0.8) Basophils # (Auto) 0 10 ^3/uL (0-0.2) Nucleated Red Blood Cells 0.0 % Test 09/06/24 00:12 09/05/24 04:34 09/03/24 18:11 09/03/24 17:09 Urine Creatinine 66.73 mg/dL (30.0-125.0) Urine Protein/Creatinine Ratio 5.07 Urine Sodium 28 mmol/L (40-220) Urine Total Protein 338.2 mg/dL (1-14) Hepatitis B Surface Antigen Negative (Negative) Hepatitis C Antibody Negative (Negative) Troponin I High Sensitivity 11 ng/L (</=34) Lactic Acid Level 1.8 mmol/L (0.4-2.0) Test 09/03/24 15:03 09/03/24 12:35 09/03/24 11:25 Influenza Type A Antigen Positive (Negative) Influenza Type B Antigen Negative (Negative) SARS-CoV-2 Antigen (Rapid) Negative (NEGATIVE) Urine Color Light-yellow (Yellow) Urine Clarity Turbid (Clear) Urine pH 7.5 (5.0-9.0) Urine Specific [place] 1.012 (1.001-1.035) Urine Protein 3+ (Negative) Urine Ketones Negative (Negative) Urine Blood 1+ /uL (Negative) Urine Nitrite Negative (Negative) Urine Bilirubin Negative (Negative) Urine Urobilinogen Normal mg/dL (Negative) Urine Leukocyte Esterase 1+ /uL (Negative) Urine RBC 2 /hpf (0 - 4) Urine WBC 40 /hpf (0 - 5) Urine Squamous Epithelial Cells Few /hpf (<5) Urine Bacteria Many /hpf (None Seen) Urine Glucose 4+ mg/dL (Normal) B-Type Natriuretic Peptide 79.48 pg/mL (0-100) Beta HCG, Quantitative 1.3 mIU/mL (1.5-4.2) Other Laboratory Tests 09/09/24 05:18 09/06/24 04:29 Brief Hx & Hospital Course: 48-year-old female with multiple medical problems including chronic respiratory failure recurrent UTI diabetes hypertension CHF peripheral neuropathy [place] kidney stones acute kidney injury marijuana abuse chronic alcohol abuse chronic current smoker came in for shortness of breaths and chest pain troponin negative x3 coronary artery disease ruled out ejection fraction 60 percent 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 Patient had UTI blood cultures negative treated with Invanz as previous cultures showed ESBL E coli urine cultures came negative at this time and Invanz was discontinued patient has a nephrotic range proteinuria and acute kidney injury seen by sugar presser Dr. Saha and Dr Solares. Patient is requesting wheelchair and home oxygen orders placed accordingly. Patient is being discharged on Cipro for the UTI I personally reviewed all her home medications and she will continue all the home medications and follow up with the sugar presser and her primary Dr General condition stable but poor at the time of discharge, prognosis very poor because of multiple comorbidities smoking alcohol and marijuana abuse Consults/Reason for consult Cardiology Dr. Guardado Nephrology Dr. Solares Operations or Procedures None Condition at Discharge: Fair Final Diagnosis/Problems List Chest pain coronary artery disease ruled out Troponin negative x3, cardiology consult for Dr. Atkinson appreciated ejection fraction 60% no further cardiac workup Influenza A positive: Completed course of Tamiflu Acute hypoxic respiratory failure oxygen by nasal cannula UTI: Blood cultures negative, urine cultures negative, treated with Invanz, we will DC home on Cipro Diabetes Hypertension Acute on chronic Chronic congestive heart failure Peripheral neuropathy: Medication gabapentin continued History of [place] History of kidney stones Acute kidney injury with elevated BUN creatinine, consult by Dr Saha appreciated Nephrotic range proteinuria Chronic current smoker: Counseling Marijuana abuse: Counseling Chronic alcoholic abuse: Counseled Discharge Disposition: Home with Health Services Discharge Instruct/Medications Diet: Cardiac 2g Na,low cholest Activity: Light activity Follow Up/Referral: Resume all your previous home medications Follow up with your primary Dr Dr. Do In one week Follow up with the Nephrology Dr. Solares in 3-4 days Medications: Cipro Transmitted to the pharmacy Reviewed all previous home medications 39 (Time taken for discharge summary 39 minutes) Discharge Statement: "Patient was advised to return to the ER or call 911 if any headaches, dizziness, shortness of breath, chest pain, abdominal pain, bleeding, fevers, or worsening of medical condition. Patient was counseled about treatment plan, medications, possible side effects, patientverbalized understanding. All questions were answered to the best of my ability. This discharge took greater then 30 minutes in planning, reviewing documentation, counseling the patient, and discussing with other team members." DME: Diagnosis: Difficulty to ambulate secondary to peripheral neuropathy ASSESSMENT ASSESSMENT Hospital Course Marginal improvement Assessment Chest pain coronary artery disease ruled out Troponin negative x3, cardiology consult for Dr. Atkinson appreciated ejection fraction 60% no further cardiac workup Influenza A positive: Completed course of Tamiflu Acute hypoxic respiratory failure oxygen by nasal cannula UTI: Blood cultures negative, urine cultures negative, treated with Invanz, we will DC home on Cipro Diabetes Hypertension Acute on chronic Chronic congestive heart failure Peripheral neuropathy: Medication gabapentin continued History of [place] History of kidney stones Acute kidney injury with elevated BUN creatinine, consult by Dr Saha appreciated Nephrotic range proteinuria Chronic current smoker: Counseling Marijuana abuse: Counseling Chronic alcoholic abuse: Counseled Date of Service: Sep 10, 2024 Billing Provider: AZIZA GARCIA MD Common Visit Codes: [id number] DISCH DAY >30min AZIZA GARCIA MD Sep 10, 2024 08:23
--- NOTE | 2024-09-10 09:45 | DVHPN2 ---
Progress Note Date Seen: Sep 10, 2024 Medical Necessity Reason Pt with a Central, PICC or Fol: No Subjective Patient reports: No new complaints ( ) Other Systems: Patient seen and examined by myself on follow-up Objective vital signs Vital Sign Date Time Temp Pulse Resp B/P (MAP) Pulse Ox O2 Delivery O2 Flow Rate FiO2 09/10/24 06:18 84 14 100 09/10/24 06:12 Nasal Cannula* 1 09/10/24 05:00 98.2 139/75 (96) 98.2 Total Intake and Output 09/09/24 09/09/24 09/10/24 15:00 23:00 07:00 Intake Total 50 ml 1085 ml 1240 ml Output Total 1000 ml Balance 50 ml 1085 ml 240 ml medications Current Medications Medications Dose Ordered Sig/Mariel Route Start Time Stop Time Status Last Admin Dose Admin Aspirin 81 mg DAILY PO 09/04/24 10:00 09/09/24 10:48 81 MG Atorvastatin Calcium 40 mg HS PO 09/03/24 22:00 09/09/24 21:51 40 MG Metoprolol Tartrate 12.5 mg Q12HR PO 09/03/24 22:00 09/09/24 21:52 12.5 MG Acetaminophen 650 mg Q6HP PRN PO 09/03/24 17:30 09/06/24 13:09 650 MG Zolpidem Tartrate 5 mg QHSP PRN PO 09/03/24 17:30 09/05/24 21:56 5 MG Lorazepam 0.5 mg Q6HP PRN PO 09/03/24 17:30 09/04/24 23:16 0.5 MG Docusate Sodium 100 mg DAILY PO 09/04/24 10:00 09/09/24 10:47 100 MG Ondansetron HCl 4 mg Q4HP PRN IV 09/03/24 17:30 09/04/24 18:59 4 MG Al Hydrox/Mg Hydrox/Simethicone 30 ml Q6HP PRN PO 09/03/24 17:30 Guaifenesin/ Dextromethorphan 10 ml Q6HR PRN PO 09/03/24 21:30 09/05/24 21:31 10 ML Ertapenem 0.5 gm/ Sodium Chloride 50 ml @ 100 mls/hr DAILY IV 09/06/24 10:00 09/09/24 10:49 100 MLS/HR Morphine Sulfate 2 mg Q4HPRN PRN IV 09/05/24 10:15 09/10/24 00:06 2 MG Gabapentin 400 mg BID PO 09/06/24 10:00 09/09/24 21:52 400 MG Pantoprazole Sodium 40 mg BID@0600,1700 PO 09/06/24 17:00 09/10/24 05:52 40 MG Albuterol 2.5 mg Q4HR NEB 09/07/24 14:00 09/10/24 06:10 2.5 MG Diagnostic Test (Pha) 1 strip IQ4HR 09/10/24 00:00 09/10/24 08:51 1 STRIP Insulin Human Regular IQ4HR SC 09/10/24 00:00 09/10/24 08:59 9 UNITS Dextrose 50 ml UD PRN IV 09/10/24 00:00 Examination: LUNGS:Normal, CVS:Normal, MSK:Normal laboratory and microbiology Laboratory Tests 09/09/24 05:18 09/06/24 04:29 Test 09/09/24 05:18 Range/Units Serum Glucose 174 H 74-106 mg/dL Microbiology Date/Time Source Procedure Growth Status 09/06/24 00:12 Voided Urine Urine Culture - Final Complete 09/03/24 17:10 Blood Blood Culture - Final NO GROWTH AFTER 5 DAYS OF INCUBATION. 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 Provided dietary education to patient and adult male visitor. Explaination of the relationship b/w diet and disease. Reviewed HbA1c guidelines and mechanism of action for diabetes medication. Introduced plate method as guide to healthy eating. Emphasized the importance of pairing carbohydrates with protein and reducing intake of added sugar. 2. Refer patient to outpatient RD and/or [facility] Expected Outcomes/Goals: Patient dietary habits and labs to improve Patient diabetes knowledge to improve JOBY PERKINS MD Sep 10, 2024 09:45
[2024-09-10] MEDS: FUROSEMIDE 40 MG/4 ML VIAL IV SCH (10:03)
== END 2024-09-10 15:50 | disposition home health service (06) | DRG 720 ==
LOC: ER 11:12 → EDBD 11:12 → OVERFLOW 17:23 → TELE-CENTR 09-04 21:47 → CENTRAL 09-05 18:38
PROVIDERS: ADMIT Nurse Practitioner; ATTEND Family Medicine
DX: A41.9 Sepsis, unspecified organism (principal); J96.01 Acute respiratory failure with hypoxia; N17.0 Acute kidney failure with tubular necrosis; I50.33 Acute on chronic diastolic (congestive) heart failure; E87.1 Hypo-osmolality and hyponatremia; D63.1 Anemia in chronic kidney disease; J44.0 Chronic obstructive pulmonary disease with (acute) lower respiratory infection; N13.6 Pyonephrosis; Z20.822 Contact with and (suspected) exposure to COVID-19; I13.0 Hypertensive heart and chronic kidney disease with heart failure and stage 1 through stage 4 chronic kidney disease, or unspecified chronic kidney disease; E11.22 Type 2 diabetes mellitus with diabetic chronic kidney disease; E11.40 Type 2 diabetes mellitus with diabetic neuropathy, unspecified; F12.10 Cannabis abuse, uncomplicated; F17.210 Nicotine dependence, cigarettes, uncomplicated; J10.1 Influenza due to other identified influenza virus with other respiratory manifestations; N18.32 Chronic kidney disease, stage 3b; J20.9 Acute bronchitis, unspecified; E78.5 Hyperlipidemia, unspecified; E66.01 Morbid (severe) obesity due to excess calories; F10.10 Alcohol abuse, uncomplicated; Y90.9 Presence of alcohol in blood, level not specified; Z90.49 Acquired absence of other specified parts of digestive tract; Z88.5 Allergy status to narcotic agent; Z82.49 Family history of ischemic heart disease and other diseases of the circulatory system; Z83.3 Family history of diabetes mellitus; Z82.3 Family history of stroke; Z88.8 Allergy status to other drugs, medicaments and biological substances; Z79.899 Other long term (current) drug therapy; Z91.199 Patient's noncompliance with other medical treatment and regimen due to unspecified reason; Z71.6 Tobacco abuse counseling; Z79.84 Long term (current) use of oral hypoglycemic drugs; Z87.442 Personal history of urinary calculi; Z71.51 Drug abuse counseling and surveillance of drug abuser; I25.2 Old myocardial infarction; Z68.33 Body mass index [BMI] 33.0-33.9, adult; Z79.82 Long term (current) use of aspirin; Z79.4 Long term (current) use of insulin
CPT/HCPCS: 36415; 71045; 80048; 81001; 82570; 82962; 83036; 83605; 83880; 84156; 84300; 84484; 84702; 85025; 86803; 87040; 87086; 87340; 87426; 87804; 93005; 94640; 97163; G0378; G9035; J1335; J1815; J2405

== ENCOUNTER 2024-10-23 13:20 | Inpatient (IN) | payer MEDICAID ==
[~2024-10-23] VITALS: Ht 154.9 cm; Wt 85.3 kg
[~2024-10-23 13:20] MED LIST changes: -ASPI-325 PO; -BLOO1KIT60 XX; +CIPR-173 PO; -FERR-7 PO; -FURO1TAB31 PO; -GABA-1250 PO; -HYDR-4902 PO; -INSLANTI SC; -INSU-1639 XX; +INSU100I54 SC; -LANC28MI44 XX; -MET25T PO
--- NOTE | 2024-10-23 14:50 | ED.PDOC ---
History of Present Illness HPI Comments 48 y/o F, with PMHX of HTN and DM presents to the ED for CC of flu-like symptoms. Patient states that she has been experiencing flu-like symptoms with associated uncontrolled high blood sugar readings x2days. Patient relays, that she has had a persistent non-productive cough and chest discomfort which has ca used her to be unable to take her insulin. Patient comments on, 800 blood sugar yesterday (10/22/24) and 546 blood sugar reading before arriving to ED today; on at home glucometer. Patient denies social history. Patient denies hemtauria, dysuria, nasal congestion, sore throat, fever, or chills. No other symptoms or modifying factors at this time. Chief Complaint: Flu like Time Seen by MD: 14:00 Primary Care Provider: unknown Reviewed Notes: Nurses Notes, Medications, Allergies Allergies: Coded Allergies: Codeine (Verified Allergy, Unknown, 03/20/19) Home Meds Active Scripts Ciprofloxacin Hcl (Cipro) 500 Mg Tab, 1 TAB PO BID, #20 TAB Prov:AZIZA GARCIA MD 09/10/24 Ferrous Sulfate (Ferrous Sulfate) 325 Mg Tab, 325 MG PO DAILY for 30 Days, #30 TAB 2 Refills Prov:ANDREA JOSHUA RESIDENT 04/07/24 Insulin Regular (Human) (Novolin R) 100 Unit/Ml Inj, 0 UNITS SC IQ4HR for 60 Days, #5 INJ 2 Refills Please use insulin Reglan 3 times a day before meal. Follow below instruction. Please check glucose via glucometer 3 times a day. If blood glucose is between 150 and 200 please administer 2 units of regular insulin. If blood glucose is between 200-250 please administer 4 units of regular insulin. If blood sugar is between 250 and 300 please administer 8 units of regular insulin. If blood sugar between 300-350 please administered 10 units of regular insulin. If blood sugars between 350 and 400 please administer 12 units of regular insulin. If blood sugars greater than 400 please talk to /come to the hospital. Prov:ANDREA JOSHUA RESIDENT 04/07/24 Reported Medications Spironolactone (Spironolactone) 25 Mg Tab, 1 TAB PO DAILY for 30 Days, #30 09/04/24 Amlodipine Besylate (Amlodipine Besylate) 10 Mg Tab, 1 TAB PO DAILY for 90 Days, #90 09/04/24 Pantoprazole Sodium Sesquihydr (Protonix) 40 Mg Tab, 1 TAB PO DAILY for 90 Days, #90 09/04/24 Metoprolol Tartrate (Metoprolol Tartrate) 50 Mg Tab, 1 TAB PO BID for 60 Days, #120 09/04/24 Metoclopramide Hcl (Metoclopramide Hcl) 5 Mg Tab, 1 TAB PO TID for 90 Days, #270 09/04/24 Insulin Glargine (Insulin Glargine) 100 Unit/Ml Marly, 46 UNIT SC QPM for 32 Days, #15 09/04/24 Gabapentin (Gabapentin) 100 Mg Cap, 400 MG PO BID for 90 Days, #180 09/04/24 Furosemide (Furosemide) 40 Mg Tab, 1 TAB PO DAILY for 90 Days, #90 09/04/24 Empagliflozin (Jardiance) 10 Mg Tab, 1 TAB PO DAILY for 90 Days, #90 09/04/24 Atorvastatin Calcium (Lipitor) 40 Mg Tab, 1 TAB PO DAILY for 90 Days, #90 09/04/24 Aspirin (Aspirin Low Dose) 81 Mg Chw, 1 TAB PO DAILY for 90 Days, #90 09/04/24 Information Source: Patient Mode of Arrival: Wheelchair Severity: Moderate Timing: Days Duration: Since onset Prehospital treatment: None Past Medical History PAST MEDICAL HISTORY: CHF, CKF, DM, HTN, Kidney Stones, DC Surgical History: Appendectomy, Cholecystectomy, HAND QUILTER History: No Pertinent HAND QUILTER History Family History Family History: Unknown Social History Smoker: Cigarettes, Less Than 1 Pack/Day Alcohol: Heavy Drugs: Marijuana Lives In: Home Constitutional: denies: chills, diaphoresis, fatigue, fever, malaise, sweats, weakness, others EENTM: denies: blurred vision, double vision, ear bleeding, ear discharge, ear drainage, ear pain, ear ringing, eye pain, eye redness, hearing loss, mouth pain, mouth swelling, nasal discharge, nose bleeding, nose congestion, nose pain, photophobia, tearing, throat pain, throat swelling, voice changes, others Respiratory: reports: cough; denies: hemoptysis, orthopnea, SOB at rest, shortness of breath, SOB with excertion, stridor, wheezing, others Cardiovascular: reports: chest pain; denies: dizzy spells, diaphoresis, Dyspnea on exertion, edema, irregular heart beat, left arm pain, lightheadedness, palpitations, PND, syncope, others Gastrointestinal: denies: abdomen distended, abdominal pain, blood streaked bowels, constipated, diarrhea, dysphagia, difficulty swallowing, hematemesis, melena, nausea, poor appetite, poor fluid intake, rectal bleeding, rectal pain, vomiting, others Genitourinary: denies: abnormal vagina bleeding, burning, dyspareunia, dysuria, flank pain, frequency, hematuria, incontinence, pain, , vagina discharge, urgency, others Neurological: denies: dizziness, fainting, headache, left sided numbness, left sided weakness, numbness, paresthesia, pre-existing deficit, right sided numbness, right sided weakness, seizure, speech problems, tingling, tremors, weakness, others Musculoskeletal: denies: back pain, gout, joint pain, joint swelling, muscle pain, muscle stiffness, neck pain, others Integumetry: denies: bruises, change in color, change in hair/nails, dryness, laceration, lesions, lumps, rash, wounds, others Allergic/Immunocompromised: denies: Difficulty Healing, Frequent Infections, Hives, Itching, others Hematologic/Lymphatic: denies: anemia, blood clots, easy bleeding, easy bruisin g, swollen glands, others Endocrine: denies: excessive hunger, excessive sweating, excessive thirst, excessive urination, flushing, intolerance to cold, intolerance to heat, unexplained weight gain, unexplained weight loss, others Psychiatric: denies: anxiety, bipolar disorder, depression, hopeless, panic disorder, schizophrenia, sleepless, suicidal, others All Other Systems: Reviewed and Negative Physical Exam General Appearance: Moderate Distress HEENT: Normal ENT Inspection, Pharynx Normal, TMs Normal Neck: Full Range of Motion, Non-Tender, Normal, Normal Inspection Respiratory: Chest Non-Tender, Lungs Clear, No Accessory Muscle Use, No Respiratory Distress, Normal Breath Sounds Cardiovascular: No Edema, No JVD, No Murmur, No Gallop, Normal Peripheral Pulses, Regular Rate/Rhythm Breast Exam: Deferred Gastrointestinal: No Organomegaly, Non Tender, No Pulsatile Mass, Normal Bowel Sounds, Soft Genitalia: Deferred Pelvic: Deferred Rectal: Deferred Extremities: No calf tenderness, Normal capillary refill, Normal inspection, Normal range of motion, Non-tender, No pedal edema Musculoskeletal : Apperance: Normal Neurologic: Alert, supervisor assembly II-XII nml as Tested, No Motor Deficits, Normal Affect, Normal Mood, No Sensory Deficits Cerebellar Function: NOT DONE Reflexes: NOT DONE Skin: Dry, Normal Color, Warm Peripheral Pulses: 3+ Radial (R), 3+ Radial (L) Lymphatic: No Adenopathy Was a procedure done? Was a procedure done?: No Differential Dx Considerations may include: uncontrolled hyperglycemia Electrolyte imbalance X-Ray, Labs, Meds, VS Vital Signs Date Time Temp Pulse Resp B/P (MAP) Pulse Ox O2 Delivery O2 Flow Rate FiO2 10/23/24 15:29 98.7 88 17 152/78 (102) 99 98.7 10/23/24 15:29 88 16 99 Room Air* 0 21 10/23/24 14:08 99.0 89 19 176/69 (104) 97 Lab Test 10/23/24 15:15 10/23/24 15:00 Range/Units Urine Color Pending Urine Clarity Pending Urine pH Pending Urine Specific [place] Pending Urine Protein Pending Urine Ketones Pending Urine Blood Pending Urine Nitrite Pending Urine Bilirubin Pending Urine Urobilinogen Pending Urine Leukocyte Esterase Pending Urine RBC Pending Urine Microscopic WBC Pending Urine Squamous Epithelial Cells Pending Urine Bacteria Pending Urine Glucose Pending White Blood Count 6.4 4.4-10.8 10^3/uL Red Blood Count 3.61 L 4.0-5.20 10^6/uL Hemoglobin 10.7 L 12.2-16.2 g/dL Hematocrit 32.4 L 36.0-46.0 % Mean Corpuscular Volume 89.8 80.0-100.0 fL Mean Corpuscular Hemoglobin 29.7 28.0-32.0 pg Mean Corpuscular Hemoglobin Concent 33.1 32.0-36.0 g/dL Red Cell Distribution Width 15.2 H 11.8-14.3 % Platelet Count 364 140-450 10^3/uL Mean Platelet Volume 9.3 6.9-10.8 fL Neutrophils (%) (Auto) 64.2 37.0-80.0 % Lymphocytes (%) (Auto) 22.9 10.0-50.0 % Monocytes (%) (Auto) 10.3 0.0-12.0 % Eosinophils (%) (Auto) 2.0 0.0-7.0 % Basophils (%) (Auto) 0.6 0.0-2.0 % Neutrophils # (Auto) 4.1 1.6-8.6 10 ^3/uL Lymphocytes # (Auto) 1.5 0.4-5.4 10 ^3/uL Monocytes # (Auto) 0.7 0-1.3 10 ^3/uL Eosinophils # (Auto) 0.1 0-0.8 10 ^3/uL Basophils # (Auto) 0 0-0.2 10 ^3/uL Nucleated Red Blood Cells 0.1 % Sodium Level Pending Potassium Level Pending Chloride Level Pending Carbon Dioxide Level Pending Anion Gap Pending Blood Urea Nitrogen Pending Creatinine Pending Glomerular Filtration Rate Calc Pending BUN/Creatinine Ratio Pending Serum Glucose Pending Calcium Level Pending Current Medications Medications (Trade) Dose Ordered Sig/Mariel Route Start Time Stop Time Status Last Admin Sodium Chloride 1,000 ml @ 1,000 mls/hr Q1H ONCE IV 10/23/24 14:45 10/23/24 15:44 DC 10/23/24 15:18 Patient alert. States her blood sugar was high. Vitals stable. Answering all questions. Establish intravenous access. Was given fluids. Frequent urination. WBC within normal limits. Blood pressure elevated. Reviewed her history. Explained to the patient. Continue cardiac monitoring. Time of 1ST Reevaluation: 14:30 Reevaluation 1ST: Unchanged Patient Education/Counseling: Diagnosis, Treatment Family Education/Counseling: No Family Present Additional Information I reviewed the following notes from patient's past medical encounters: 09/03/24 DX: CP AND UTI, 07/19/24 DX: B/L FLANK PAIN The following tests were ordered, and results were reviewed by me: CBC, BMP, UA I discussed treatment and results with medical personnel and: PATIENT Departure 1 Departure Time of Disposition: 15:56 Impression: Primary Impression: Uncontrolled diabetes mellitus Qualified Codes: E13.65 - Other specified diabetes mellitus with hyperglycemia Additional Impression: HTN (hypertension) Qualified Codes: I10 - Essential (primary) hypertension Disposition: ADMITTED INPATIENT Admit to: Med Surg Condition: Guarded Critical Care Note Critical Care Time?: No Stability Stability form required: No Heart Score Heart Score: Heart Score Response (Comments) Value History N/A 0 EKG N/A 0 Age N/A 0 Risk Factors N/A 0 Troponin N/A 0 Total 0 I personally scribed for TERRY ODOM MD ([email or web address]) on 10/23/24 at 14:50. Electronically submitted by Sarai Torre ([employer]). I personally scribed for TERRY ODOM MD ([email or web address]) on 10/23/24 at 15:23. Electronically submitted by Sarai Torre ([employer]). TERRY ODOM MD Oct 23, 2024 14:50
[2024-10-23] MEDS: SODIUM CHLORIDE 0.9% 1,000 ML IV ONE (15:18)
[2024-10-23 15:29] VITALS: PULSE 88; RESP 16; O2SAT 99
[2024-10-23 15:44] LABS: Basophils # (auto) 0 10 ^3/uL (0-0.2); Basophils % (auto) 0.6 % (0.0-2.0); Eosinophils # (auto) 0.1 10 ^3/uL (0-0.8); Hematocrit 32.4 % (36.0-46.0); Hemoglobin 10.7 g/dL (12.2-16.2); Lymphocytes # (auto) 1.5 10 ^3/uL (0.4-5.4); Lymphocytes % (auto) 22.9 % (10.0-50.0); Mean Corpuscular Hemoglobin 29.7 pg (28.0-32.0); Mean Corpuscular Hgb Conc. 33.1 g/dL (32.0-36.0); Mean Corpuscular Volume 89.8 fL (80.0-100.0); Monocytes # (auto) 0.7 10 ^3/uL (0-1.3); Monocytes % (auto) 10.3 % (0.0-12.0); Neutrophils # (auto) 4.1 10 ^3/uL (1.6-8.6); Neutrophils % (auto) 64.2 % (37.0-80.0); Nucleated Red Blood Cells % 0.1 %; Platelet Count (auto) 364 10^3/uL (140-450); Red Blood Cells 3.61 10^6/uL (4.0-5.20); Red Cell Distribution Width 15.2 % (11.8-14.3); White Blood Cell 6.4 10^3/uL (4.4-10.8)
[2024-10-23 15:52] LABS: Chloride 104 mmol/L (98-107); Potassium 3.9 mmol/L (3.5-5.1)
[2024-10-23 15:53] LABS: Anion Gap 8 (5-15); Calcium 8.8 mg/dL (8.7-10.4); Carbon Dioxide 21 mmol/L (20-31)
[2024-10-23 15:58] LABS: BUN/Creatinine Ratio 10.7 (10.0-20.0); Blood Urea Nitrogen 21 mg/dL (9-23)
[2024-10-23 16:03] LABS: Glucose 398 mg/dL (74-106); Sodium 133 mmol/L (136-145)
[2024-10-23 16:06] LABS: Urine Bacteria FEW /hpf (None Seen); Urine Blood 1+ /uL (Negative); Urine Clarity Turbid (Clear); Urine Color Colorless (Yellow); Urine Mucus FEW (None Seen); Urine Protein, UAD 3+ (Negative); Urine Specific Gravity 1.012 (1.001-1.035); Urine Squamous Epithelial Cell MOD /hpf (<5); Urine Urobilinogen Normal (Negative); Urine WBC 36 /HPF (0-5); Urine pH 6.5 (5.0-9.0)
[2024-10-23] MEDS: IBUPROFEN 600 MG TAB PO ONE (16:06)
[2024-10-23] MEDS: amLODIPine BESYLATE 5 MG TAB PO ONE (21:30)
[2024-10-23] MEDS: FUROSEMIDE 20 MG/2 ML VIAL IV ONE (21:30)
[2024-10-23] MEDS ORDERED: IPRATROPIUM BROM 0.5 MG/2.5ML INH SOL NEB PRN (21:30)
[2024-10-23] MEDS ORDERED: DEXTROSE (50%) 50ML SYRG IV PRN (21:30)
[2024-10-23] MEDS: ERTAPENEM SOD INJ 1 GM in SODIUM CHL 0.9% 50 ML IV ONE (21:30)
--- NOTE | 2024-10-23 22:35 | DVH ---
EXAM: XY CHEST XRAY 1 VIEW CLINICAL HISTORY: sob TECHNIQUE: Single AP view of the chest WID: COMPARISON: XY CHEST XRAY 1 VIEW on DOS: 09/06/24 FINDINGS: Lines and tubes: None Chest: The heart size and pulmonary vasculature is within normal limits. No pleural effusion, pneumothorax, or consolidation. The osseous structures are grossly intact. IMPRESSION: No acute cardiopulmonary abnormality.
[2024-10-23 22:48] LABS: Alanine Aminotransferase 10 U/L (7-40); Albumin 3.8 g/dL (3.2-4.8); Alkaline Phosphatase 120 U/L (46-116); Aspartate Aminotransferase 8 U/L (13-40); Bilirubin, Direct < 0.1 mg/dL (<0.3); Bilirubin, Total < 0.2 mg/dL (0.2-1.0); Total Protein 6.1 g/dL (5.7-8.2)
--- NOTE | 2024-10-23 22:53 | DVH ---
CLINICAL HISTORY: abdominal pain, cva tenderness r/o nephrolithiasis TECHNIQUE: CT of the abdomen and pelvis was performed without intravenous contrast. This exam was per formed according to our departmental dose optimization program. Up-to-date CT equipment and radiation dose reduction techniques are utilized as appropriate. CTDI: [CTDIvol] DLP: 1065.67 WID: COMPARISON: CT CT AB PEL WO CON-NO ORAL OR IV on DOS: 07/19/24, FINDINGS: Lower Thorax: Minimal linear bibasilar scarring or atelectasis. Upper limits of normal-sized heart. At least mild coronary artery calcifications partially imaged. Hypodensity of the blood pool relative to the myocardium indicative of anemia. Liver and Biliary system: Mild hepatomegaly measuring 19 cm craniocaudal. Prior cholecystectomy. Oth erwise unremarkable. Spleen: Unremarkable. Adrenal Glands and Kidneys: Normal adrenal glands. There is persistent moderate perinephric soft tiss ue stranding. Mild bilateral urothelial thickening. No hydronephrosis or nephrolithiasis. Pancreas and Retroperitoneum: Grossly normal unopacified pancreas. Prominent retroperitoneal lymph no ben. Aorta and Major Vessels: Aortoiliac vessels are normal in caliber containing mild calcified atheroscl erotic plaque Bowel, Mesentery and Peritoneal space: Normal caliber small and large bowel. Prior appendectomy. No f ree air or fluid collection. Pelvis: Urinary bladder is mildly distended. Prominent cervical nabothian cysts. There is no pelvic l ymphadenopathy. There is a cystic lesion in the left ovary measuring 2.3 cm likely a follicular cyst. The uterus and right ovary are otherwise grossly unremarkable Abdominal wall and Osseous Structures: Subcutaneous body wall edema. Mild lower thoracic and lumbar s pondylosis. No destructive osseous lesion. IMPRESSION: 1. Persistent moderate perinephric soft tissue stranding and mild bilateral urothelial thickening. Fi ndings could be due to pyelonephritis and urinary tract infection. Correlate with urinalysis. 2. Anemia suggested. Correlate with CBC 3. At least mild calcified coronary artery disease, partially imaged. 4. Mild hepatomegaly.
[2024-10-23] MEDS: ACCU-CHEK COMFORT CURVE STRIP VI SCH (23:18)
[2024-10-23] MEDS: InsuLIN REG 1unit/0.01ml Soln (100units/ml) SC SCH (23:25)
[2024-10-23] MEDS: INSULIN LANTUS (GLARGINE) 1 /0.01ml (100units/ml) SC ONE (23:26)
[2024-10-23 23:30] LABS: Rapid Influenza A Negative (Negative); Rapid Influenza B Negative (Negative)
[2024-10-23 23:31] LABS: COVID19 ANTIGEN SOFIA FIA POSITIVE (NEGATIVE)
--- NOTE | 2024-10-23 23:44 | DVHHPRES ---
History of Present Illness Resident Creating Document: RUSTY OCASIO RESIDENT Reason for Visit: Flu-like symptoms History of Present Illness This is a 48-year-old female who comes to the ED with chief complain of flu-like symptoms. She has a past medical history relevant for CHF, CKD, hyperlipidemia, type 2 diabetes, hypertension. Patient has a past surgical history of cholecystectomy, appendectomy, . She states that since two days ago she started having productive cough, associated with fevers, chills, general malaise, headaches, dizziness. She stated that her daughter is also sick with similar symptoms. Patient is also complaining of right upper quadrant pain which fluctuates, stabbing like pain, localized. She is also complaining of heartburn. Dysuria, urinary frequency. She mentions that on her glucometer her blood sugar readings today were around 800 and 500 which prompted her to come to the ED as well. In the ED patient received ibuprofen 600 mg p.o., as well as 1 L of normal saline. On my assessment, patient continued to complain of the aforementioned symptoms, no significant improvement yet. Cardiovascular: CHF, HTN, hyperipidemia Renal/: Chronic renal insuff Endocrine: Diabetes Past Surgical History: Appendectomy, Cholecystectomy, Smoke: <1 pack per day ALCOHOL: occassional Drugs: Marijuana Lives: with Family Review of Systems Constitutional: Yes: Fever, Chills, Weakness, Malaise; No: Sweats, Other Eyes: No: Pain, Vision change, Conjunctivae inflammation, Eyelid inflammation, Other, Redness ENT: No: Ear pain, Ear discharge, Nose pain, Nose discharge, Nose congestion, Mouth pain, Mouth swelling, Throat pain, Throat swelling, Other Respiratory: Cough, Shortness of breath; No: Dry, SOB with excertion, Wheezing, Hemoptysis, Pleuritic Pain, Sputum, Wheezing, Other Cardiovascular: No: Chest Pain, Palpitations, Orthopnea, Paroxysmal Noc. Dyspnea, Edema, Lt Headedness, Other Gastrointestinal: Nausea, Abdominal Pain; No: Vomiting, Diarrhea, Constipation, Melena, Hematochezia, Other Genitourinary: Dysuria, Frequency; No Incontinence, No Hematuria, No Retention, No Other Musculoskeletal: No: other, neck pain, shoulder pain, arm pain, back pain, hand pain, leg pain, foot pain Skin: No: Rash, Lesions, Jaundice, Bruising, Other Neurological: No: Weakness, Numbness, Incoordination, Change in speech, Confusion, Seizures, Other Allergies: Coded Allergies: Codeine (Verified Allergy, Unknown, 03/20/19) Medications Current Medications Medications Dose Ordered Sig/Mariel Route Start Time Stop Time Status Last Admin Dose Admin Insulin Glargine 20 units DAILY@1000 SC 10/25/24 10:00 Diagnostic Test (Pha) 1 strip ACHS 10/23/24 22:00 Insulin Human Regular HS SC 10/23/24 22:00 Insulin Human Regular AC SC 10/24/24 07:00 Dextrose 50 ml UD PRN IV 10/23/24 21:30 Ertapenem 1 gm/ Sodium Chloride 50 ml @ 100 mls/hr Q24H IV 10/24/24 23:00 Amlodipine Besylate 10 mg DAILY PO 10/24/24 10:00 Metoprolol Tartrate 50 mg BID PO 10/23/24 22:00 Gabapentin 400 mg BID PO 10/23/24 22:00 Albuterol 2.5 mg Q8HPRN PRN NEB 10/23/24 21:30 Ipratropium [place] 0.5 mg Q8HPRN PRN NEB 10/23/24 21:30 Exam Vital Signs Vital Signs Date Time Temp Pulse Resp B/P (MAP) Pulse Ox O2 Delivery O2 Flow Rate FiO2 10/23/24 23:05 98.6 85 22 134/66 (88) 98 98.6 10/23/24 15:29 Room Air* 0 21 General Appearance: Alert, Oriented X3, Cooperative, mild distress HEENT: Atraumatic, EOMI Respiratory: Clear to auscultation, Normal air movement Cardiovascular: Regular rate, Normal S1, Normal S2, No murmurs Abdominal: Normal bowel sounds, Soft, No tenderness, No hepatospenomegaly, No masses Extremities: No clubbing, No cyanosis, Normal pulses, Other (mild pedal edema) Skin: No rashes, No breakdown, No significant lesion Neuro: Normal gait, Normal speech, Strength at 5/5 X4 ext, Normal tone Psych/Mental Status: Mental status NL, Mood NL Labs/Xrays Labs Test 10/23/24 22:17 10/23/24 22:11 10/23/24 15:15 1/28/25 15:00 Range/Units Lactic Acid Level 0.7 0.4-2.0 mmol/L Total Bilirubin < 0.2 L 0.2-1.0 mg/dL Direct Bilirubin < 0.1 <0.3 mg/dL Aspartate Amino Transferase (AST) 8 L 13-40 U/L Alanine Aminotransferase (ALT) 10 7-40 U/L Alkaline Phosphatase 120 H 46-116 U/L Total Protein 6.1 5.7-8.2 g/dL Albumin 3.8 3.2-4.8 g/dL Beta HCG, Quantitative 0.6 L 1.5-4.2 mIU/mL Urine Color Colorless Yellow Urine Clarity Turbid H Clear Urine pH 6.5 5.0-9.0 Urine Specific [place] 1.012 1.001-1.035 Urine Protein 3+ H Negative Urine Ketones Negative Negative Urine Blood 1+ H Negative /uL Urine Nitrite Negative Negative Urine Bilirubin Negative Negative Urine Urobilinogen Normal Negative mg/dL Urine Leukocyte Esterase 2+ Negative /uL Urine RBC 3 0 - 4 /hpf Urine Microscopic WBC 36 H 0-5 /HPF Urine Squamous Epithelial Cells Mod <5 /hpf Urine Bacteria Few H None Seen /hpf Urine Mucus Few None Seen Urine Glucose 4+ H Normal mg/dL White Blood Count 6.4 4.4-10.8 10^3/uL Red Blood Count 3.61 L 4.0-5.20 10^6/uL Hemoglobin 10.7 L 12.2-16.2 g/dL Hematocrit 32.4 L 36.0-46.0 % Mean Corpuscular Volume 89.8 80.0-100.0 fL Mean Corpuscular Hemoglobin 29.7 28.0-32.0 pg Mean Corpuscular Hemoglobin Concent 33.1 32.0-36.0 g/dL Red Cell Distribution Width 15.2 H 11.8-14.3 % Platelet Count 364 140-450 10^3/uL Mean Platelet Volume 9.3 6.9-10.8 fL Neutrophils (%) (Auto) 64.2 37.0-80.0 % Lymphocytes (%) (Auto) 22.9 10.0-50.0 % Monocytes (%) (Auto) 10.3 0.0-12.0 % Eosinophils (%) (Auto) 2.0 0.0-7.0 % Basophils (%) (Auto) 0.6 0.0-2.0 % Neutrophils # (Auto) 4.1 1.6-8.6 10 ^3/uL Lymphocytes # (Auto) 1.5 0.4-5.4 10 ^3/uL Monocytes # (Auto) 0.7 0-1.3 10 ^3/uL Eosinophils # (Auto) 0.1 0-0.8 10 ^3/uL Basophils # (Auto) 0 0-0.2 10 ^3/uL Nucleated Red Blood Cells 0.1 % Sodium Level 133 L 136-145 mmol/L Potassium Level 3.9 3.5-5.1 mmol/L Chloride Level 104 98-107 mmol/L Carbon Dioxide Level 21 20-31 mmol/L Anion Gap 8 5-15 Blood Urea Nitrogen 21 9-23 mg/dL Creatinine 1.97 H 0.550-1.02 mg/dL Glomerular Filtration Rate Calc 31 >90 mL/min BUN/Creatinine Ratio 10.7 10.0-20.0 Serum Glucose 398 H 74-106 mg/dL Calcium Level 8.8 8.7-10.4 mg/dL Assessment/Plan Assessment/Plan #UTI, complicated, pyelonephritis #History of ESBL Invanz 1 g IV q.d. Pending urine culture CT abdomen reviewed #CKD stage 3 Avoid nephrotoxic agents #GERD Protonix 40 mg IV q.d. #Chronic diastolic CHF Lasix 20 mg IV q.d. Previous echo from 07/19 shows ejection fraction of 60% #COVID-19 infection DuoNebs Doesnt meet criteria for remdeservir or dexamethasone #Hyperlipidemia Lipitor 40 mg p.o. q.d. #Type 2 diabetes, uncontrolled SSI aggressive Lantus 20 mg q.d. Consistent carb diet #Hypertension, uncontrolled Amlodipine 10 mg p.o. q.d. Metoprolol 50 mg p.o. b.i.d. #Obesity Counseled on lifestyle modifications #Current smoker Counseled on smoking cessation DVT ppx: Lovenox Goals of care were discussed for over 30 minutes. Full code Case was discussed with Dr. Sorensen. Plan discussed with: Patient My Orders Orders - RUSTY OCASIO RESIDENT Procedure Category Date Status Time Admit ADMIT 10/23/24 Transmitted 21:28 Notify Of Changes VELMA 10/23/24 In Process From Base 21:28 Electrocardigram EKG 10/23/24 Logged 21:28 Complete Blood Count LAB 10/24/24 Verified 04:00 Basic Metabolic Panel LAB 10/24/24 Verified 04:00 Ct Ab Pel Wo Con-No CT 10/23/24 Resulted Oral Or Iv 21:29 Urine Bacterial [place]IRAG 10/23/24 In Process Culture 21: Covid19 Antigen Lena LAB 10/23/24 In Process Rapid Influenza A&B LAB 10/23/24 In Process 21:29 Drug Screen LAB 10/23/24 In Process 21:29 Glucose Blood PHA 10/23/24 In Process (Accu-Chek Comfort 22:00 Insulin R (Human) PHA 10/23/24 In Process (Insulin R) 22:00 Insulin R (Human) PHA 10/24/24 In Process (Insulin R) 07:00 Dextrose 50% Syringe PHA 10/23/24 In Process 21:30 Chest Xray 1 View XY 10/23/24 Resulted 21:29 Ertapenem Sod Inj PHA 10/24/24 In Process (Invanz) 23:00 Amlodipine Tablet PHA 10/24/24 In Process (Norvasc Tablet) 10:00 Metoprolol Tartrate PHA 10/23/24 In Process Tablet (Lopressor Ta 22:00 Gabapentin Capsule PHA 10/23/24 In Process (Neurontin Capsule) 22:00 Albuterol Medneb PHA 10/23/24 In Process (Ventolin Medneb) 21:30 Ipratropium Medneb PHA 10/23/24 In Process (Atrovent Medneb) 21:30 Med Neb Initial RT 10/23/24 Logged Treatment 21:29 Consistent DIET 10/24/24 Transmitted Carb(Ccho)Diabetes Breakfast Insulin Lantus PHA 10/25/24 In Process (Glargine) (Lantus) 10:00 Date of Service: Oct 23, 2024 Billing Provider: JULIO HORTON MD Common Visit Codes: [id number] INP/OBS CARE (HIGH) RUSTY OCASIO RESIDENT Oct 23, 2024 23:44 JULIO HORTON MD Oct 24, 2024 23:16
[2024-10-23 23:57] VITALS: BP 159/72; PULSE 74; PULSE 78; RESP 18; TEMP 97.5; O2SAT 99
[2024-10-24] VITALS (12 sets, daily range): BP systolic 125–159; BP diastolic 54–76; PULSE 66–96; RESP 16–18; TEMP 97.5–99.7; O2SAT 96–99
[2024-10-24] LABS: Amphetamine Screen, Urine Neg (NEGATIVE); Cannabinoid Screen, Urine Neg (NEGATIVE)
[2024-10-24 00:01] LABS: Barbiturate Scree,Urine Neg (NEGATIVE); Benzodiazephine Screen, Urine Neg (NEGATIVE); Cocaine Screen, Urine Neg (NEGATIVE); Opiate Scree,Urine Neg (NEGATIVE); Phencyclidine Screen, Urine Neg (NEGATIVE)
[2024-10-24] MEDS: GABAPENTIN 400 MG CAP PO SCH (00:07)
[2024-10-24] MEDS: PANTOPRAZOLE 40 MG/10 ML VIAL INJ IV ONE (00:51)
[2024-10-24] MEDS: METOPROLOL TARTRATE 50 MG TAB PO SCH (00:51)
[2024-10-24] MEDS: ENOXAPARIN SOD 40 MG/0.4 ML SYRINGE SC ONE (00:52)
[2024-10-24] MEDS: ACETAMINOPHEN 325 MG TAB PO PRN (00:52)
[2024-10-24] MEDS: guaiFENesin 200 MG/10 ML UD PO PRN (00:53)
[2024-10-24] MEDS: InsuLIN REG 1unit/0.01ml Soln (100units/ml) IV ONE (01:23)
[2024-10-24 05:31] LABS: Basophils # (auto) 0 10 ^3/uL (0-0.2); Basophils % (auto) 0.6 % (0.0-2.0); Eosinophils # (auto) 0.2 10 ^3/uL (0-0.8); Eosinophils % (auto) 3.9 % (0.0-7.0); Hematocrit 28.1 % (36.0-46.0); Hemoglobin 9.4 g/dL (12.2-16.2); Lymphocytes # (auto) 2.1 10 ^3/uL (0.4-5.4); Lymphocytes % (auto) 32.8 % (10.0-50.0); Mean Corpuscular Hemoglobin 29.9 pg (28.0-32.0); Mean Corpuscular Hgb Conc. 33.4 g/dL (32.0-36.0); Mean Corpuscular Volume 89.7 fL (80.0-100.0); Monocytes # (auto) 0.7 10 ^3/uL (0-1.3); Monocytes % (auto) 10.3 % (0.0-12.0); Neutrophils # (auto) 3.3 10 ^3/uL (1.6-8.6); Neutrophils % (auto) 52.4 % (37.0-80.0); Platelet Count (auto) 333 10^3/uL (140-450); Red Blood Cells 3.13 10^6/uL (4.0-5.20); Red Cell Distribution Width 15.1 % (11.8-14.3); White Blood Cell 6.4 10^3/uL (4.4-10.8)
[2024-10-24 05:42] LABS: Potassium 4.1 mmol/L (3.5-5.1); Sodium 136 mmol/L (136-145)
[2024-10-24 05:43] LABS: Anion Gap 6 (5-15); Carbon Dioxide 21 mmol/L (20-31)
[2024-10-24] MEDS ORDERED: DEXTROSE (50%) 50ML SYRG IV PRN (05:45)
[2024-10-24 05:49] LABS: BUN/Creatinine Ratio 11.1 (10.0-20.0); Blood Urea Nitrogen 21 mg/dL (9-23); Chloride 109 mmol/L (98-107); Glucose 171 mg/dL (74-106)
[2024-10-24] MEDS: ACCU-CHEK COMFORT CURVE STRIP VI SCH (06:24)
[2024-10-24] MEDS: InsuLIN REG 1unit/0.01ml Soln (100units/ml) SC SCH (06:25)
[2024-10-24] MEDS ORDERED: InsuLIN REG 1unit/0.01ml Soln (100units/ml) SC SCH (07:00)
[2024-10-24] MEDS: amLODIPine BESYLATE 5 MG TAB PO SCH (09:47)
[2024-10-24] MEDS: ERTAPENEM SOD INJ 1 GM in SODIUM CHL 0.9% 50 ML IV SCH (09:49)
--- NOTE | 2024-10-24 14:12 | DVHPNRES ---
Progress Note Date Seen: Oct 24, 2024 Resident Creating Document: [facility] JENS[facility] RESIDENT Has the PT tested + for MRSA If YES, has PT been informed?: No Medical Necessity Reason Pt with a Central, PICC or Fol: No Subjective Review of Systems A 48-year-old female who comes to the ED with chief complain of flu-like symptoms. She has a past medical history relevant for CHF, CKD, hyperlipidemia, type 2 diabetes, hypertension. Patient has a past surgical history of cholecystectomy, appendectomy, . She states that since two days ago she started having productive cough, associated with fevers, chills, general malaise, headaches, dizziness. She stated that her daughter is also sick with similar symptoms. Patient is also complaining of right upper quadrant pain which fluctuates, stabbing like pain, localized. She is also complaining of heartburn. Dysuria, urinary frequency. She mentions that on her glucometer her blood sugar readings today were around 800 and 500 which prompted her to come to the ED as well. In the ED patient received ibuprofen 600 mg p.o., as well as 1 L of normal saline. On my assessment, patient continued to complain of the aforementioned symptoms, no significant improvement yet. Cardiovascular: CHF, HTN, hyperipidemia Renal/: Chronic renal insuff Endocrine: Diabetes Past Surgical History: Appendectomy, Cholecystectomy, Smoke: <1 pack per day ALCOHOL: occassional Drugs: Marijuana Lives: with Family Objective vital signs Vital Sign Date Time Temp Pulse Resp B/P (MAP) Pulse Ox O2 Delivery O2 Flow Rate FiO2 10/24/24 13:00 98.7 72 16 150/74 (99) 97 98.7 10/24/24 10:00 Room Air* 0 21 Total Intake and Output 10/23/24 10/23/24 10/24/24 15:00 23:00 07:00 Intake Total 300 ml Balance 300 ml medications Current Medications Medications Dose Ordered Sig/Mariel Route Start Time Stop Time Status Last Admin Dose Admin Insulin Glargine 20 units DAILY@1000 SC 10/25/24 10:00 Amlodipine Besylate 10 mg DAILY PO 10/24/24 10:00 10/24/24 09:47 10 MG Metoprolol Tartrate 50 mg BID PO 10/23/24 22:00 10/24/24 09:45 50 MG Gabapentin 400 mg BID PO 10/23/24 22:00 10/24/24 09:46 400 MG Albuterol 2.5 mg Q8HPRN PRN NEB 10/23/24 21:30 Ipratropium [place] 0.5 mg Q8HPRN PRN NEB 10/23/24 21:30 Pantoprazole Sodium 40 mg DAILY IV 10/25/24 10:00 Acetaminophen 650 mg Q6HP PRN PO 10/23/24 23:45 10/24/24 00:52 650 MG Enoxaparin Sodium 40 mg Q24H SC 10/25/24 01:00 Ertapenem 1 gm/ Sodium Chloride 50 ml @ 100 mls/hr Q24H IV 10/24/24 08:00 10/24/24 09:49 100 MLS/HR Guaifenesin 200 mg Q6HP PRN PO 10/24/24 00:45 10/24/24 00:53 200 MG Diagnostic Test (Pha) 1 strip Q6HR 10/24/24 06:00 10/24/24 11:59 1 STRIP Insulin Human Regular Q6HR SC 10/24/24 06:00 10/24/24 12:00 4 UNITS Dextrose 50 ml UD PRN IV 10/24/24 05:45 Examination General Appearance: Alert, Oriented X3, Cooperative, mild distress HEENT: Atraumatic, EOMI Respiratory: Clear to auscultation, Normal air movement Cardiovascular: Regular rate, Normal S1, Normal S2, No murmurs Abdominal: Normal bowel sounds, Soft, No tenderness, No hepatospenomegaly, No masses Extremities: No clubbing, No cyanosis, Normal pulses, Other (mild pedal edema) Skin: No rashes, No breakdown, No significant lesion Neuro: Normal gait, Normal speech, Strength at 5/5 X4 ext, Normal tone Psych/Mental Status: Mental status NL, Mood NL laboratory and microbiology Laboratory Tests 10/24/24 05:11 Test 10/24/24 05:11 Range/Units Serum Glucose 171 H 74-106 mg/dL Problem List/Assessment/Plan Problem List/Assessment/Plan #Covid + No need of O2 Breathing treatments Cough medicine #UTI, complicated, pyelonephritis #History of ESBL Invanz 1 g IV q.d.: patient has pyelonephritis in the CT scan: HH with IV AB for 2 weeks Pending urine culture CT abdomen reviewed #ERIK hemodinamically mediated VMN on CKD stage 3 #Long standing diabetic nephropathy Avoid nephrotoxic agents Losartan 50 mg #GERD Protonix 40 mg IV q.d. #Chronic diastolic CHF Lasix 20 mg IV q.d. Previous echo from 07/19 shows ejection fraction of 60% #Hyperlipidemia Lipitor 40 mg p.o. q.d. #Type 2 diabetes, uncontrolled SSI aggressive Lantus 20 mg q.d. Consistent carb diet #Hypertension, uncontrolled Amlodipine 10 mg p.o. q.d. Metoprolol 50 mg p.o. b.i.d. Losartan 50 mg #Obesity Counseled on lifestyle modifications #Current smoker Counseled on smoking cessation DVT ppx: Lovenox Goals of care were discussed for over 30 minutes. Full code Case was discussed with Dr. Rasheed Plan discussed with: Patient, Other (rn) My Orders My Orders Orders - [facility] JENS[facility] RESIDENT Procedure Category Date Status Time Insert Midline ORDERS 10/24/24 Transmitted 11:14 * Medical Terminologist CONS 10/24/24 Transmitted Consult Date of Service: Oct 24, 2024 Billing Provider: MARK RASHEED MD Common Visit Codes: [id number] INP/OBS CARE(HIGH) [facility] JENSEN RESIDENT Oct 24, 2024 14:12 MARK RASHEED MD Oct 29, 2024 09:57
[2024-10-24] MEDS: traMADol HCL 50 MG TAB PO PRN (18:43)
[2024-10-24] MEDS ORDERED: ERTAPENEM SOD INJ 1 GM in SODIUM CHL 0.9% 50 ML IV SCH (23:00)
[2024-10-25] VITALS (14 sets, daily range): BP systolic 100–140; BP diastolic 53–79; PULSE 64–77; RESP 15–20; TEMP 98.2–98.6; O2SAT 95–100
[2024-10-25] MEDS: ENOXAPARIN SOD 40 MG/0.4 ML SYRINGE SC SCH (00:18)
[2024-10-25] MEDS: PANTOPRAZOLE 40 MG/10 ML VIAL INJ IV SCH (09:20)
[2024-10-25] MEDS: ALBUTEROL SULF 2.5 MG/0.5ML(0.5%) NEB SOLN NEB PRN (09:43)
[2024-10-25] MEDS: LOSARTAN POTASSIUM 50 MG TAB PO SCH (10:00)
[2024-10-25] MEDS: INSULIN LANTUS (GLARGINE) 1 /0.01ml (100units/ml) SC SCH (12:10)
[2024-10-25] MEDS: IPRATROPIUM BROM 0.5 MG/2.5ML INH SOL NEB SCH (14:30)
--- NOTE | 2024-10-25 18:41 | DVHPNRES ---
Progress Note Date Seen: Oct 25, 2024 Resident Creating Document: PAR[facility] JENSEN RESIDENT Has the PT tested + for MRSA If YES, has PT been informed?: No Medical Necessity Reason Pt with a Central, PICC or Fol: No Subjective Review of Systems A 48-year-old female who comes to the ED with chief complain of flu-like symptoms. She has a past medical history relevant for CHF, CKD, hyperlipidemia, type 2 diabetes, hypertension. Patient has a past surgical history of cholecystectomy, appendectomy, . She states that since two days ago she started having productive cough, associated with fevers, chills, general malaise, headaches, dizziness. She stated that her daughter is also sick with similar symptoms. Patient is also complaining of right upper quadrant pain which fluctuates, stabbing like pain, localized. She is also complaining of heartburn. Dysuria, urinary frequency. She mentions that on her glucometer her blood sugar readings today were around 800 and 500 which prompted her to come to the ED as well. In the ED patient received ibuprofen 600 mg p.o., as well as 1 L of normal saline. On my assessment, patient continued to complain of the aforementioned symptoms, no significant improvement yet. Cardiovascular: CHF, HTN, hyperipidemia Renal/: Chronic renal insuff Endocrine: Diabetes Past Surgical History: Appendectomy, Cholecystectomy, Smoke: <1 pack per day ALCOHOL: occassional Drugs: Marijuana Lives: with Family Objective vital signs Vital Sign Date Time Temp Pulse Resp B/P (MAP) Pulse Ox O2 Delivery O2 Flow Rate FiO2 10/25/24 16:25 98.2 73 17 100/53 (69) 97 98.2 10/25/24 14:33 Room Air* 0 21 Total Intake and Output 10/24/24 10/24/24 10/25/24 15:00 23:00 07:00 Intake Total 50 ml 1000 ml 350 ml Balance 50 ml 1000 ml 350 ml medications Current Medications Medications Dose Ordered Sig/Mariel Route Start Time Stop Time Status Last Admin Dose Admin Insulin Glargine 20 units DAILY@1000 SC 10/25/24 10:00 10/25/24 12:10 20 UNITS Amlodipine Besylate 10 mg DAILY PO 10/24/24 10:00 10/25/24 09:19 10 MG Metoprolol Tartrate 50 mg BID PO 10/23/24 22:00 10/25/24 09:18 50 MG Gabapentin 400 mg BID PO 10/23/24 22:00 10/25/24 09:19 400 MG Albuterol 2.5 mg Q8HPRN PRN NEB 10/23/24 21:30 10/25/24 09:43 2.5 MG Ipratropium [place] 0.5 mg Q8HPRN PRN NEB 10/23/24 21:30 Pantoprazole Sodium 40 mg DAILY IV 10/25/24 10:00 10/25/24 09:20 40 MG Acetaminophen 650 mg Q6HP PRN PO 10/23/24 23:45 10/24/24 00:52 650 MG Enoxaparin Sodium 40 mg Q24H SC 10/25/24 01:00 10/25/24 00:18 40 MG Ertapenem 1 gm/ Sodium Chloride 50 ml @ 100 mls/hr Q24H IV 10/24/24 08:00 10/25/24 09:20 100 MLS/HR Guaifenesin 200 mg Q6HP PRN PO 10/24/24 00:45 10/25/24 12:19 200 MG Diagnostic Test (Pha) 1 strip Q6HR 10/24/24 06:00 10/25/24 12:10 1 STRIP Insulin Human Regular Q6HR SC 10/24/24 06:00 10/25/24 18:16 2 UNITS Dextrose 50 ml UD PRN IV 10/24/24 05:45 Losartan Potassium 50 mg DAILY PO 10/25/24 10:00 10/25/24 10:00 50 MG Tramadol HCl 50 mg Q6HP PRN PO 10/24/24 17:15 10/25/24 18:17 50 MG Ipratropium [place] 0.5 mg Q8HR NEB 10/25/24 14:00 10/25/24 14:30 0.5 MG Atorvastatin Calcium 40 mg HS PO 10/25/24 22:00 Examination General Appearance: Alert, Oriented X3, Cooperative, mild distress HEENT: Atraumatic, EOMI Respiratory: Clear to auscultation, Normal air movement Cardiovascular: Regular rate, Normal S1, Normal S2, No murmurs Abdominal: Normal bowel sounds, Soft, No tenderness, No hepatospenomegaly, No masses Extremities: No clubbing, No cyanosis, Normal pulses, Other (mild pedal edema) Skin: No rashes, No breakdown, No significant lesion Neuro: Normal gait, Normal speech, Strength at 5/5 X4 ext, Normal tone Psych/Mental Status: Mental status NL, Mood NL laboratory and microbiology Laboratory Tests 10/24/24 05:11 Test 10/24/24 05:11 Range/Units Serum Glucose 171 H 74-106 mg/dL Microbiology Date/Time Source Procedure Growth Status 10/24/24 01:42 Nose MRSA Screen - Final Complete 10/23/24 15:15 Voided Urine Urine Culture - Preliminary Resulted Problem List/Assessment/Plan Problem List/Assessment/Plan #Covid + No need of O2 Breathing treatments Cough medicine #UTI, complicated, pyelonephritis #History of ESBL Invanz 1 g IV q.d.: patient has pyelonephritis in the CT scan: HH with IV AB for 2 weeks urine culture: contaminated CT abdomen reviewed #ERIK hemodinamically mediated VMN on CKD stage 3 #Long standing diabetic nephropathy Avoid nephrotoxic agents Losartan 50 mg #GERD Protonix 40 mg IV q.d. #Chronic diastolic CHF Lasix 20 mg IV q.d. Previous echo from 07/19 shows ejection fraction of 60% #Hyperlipidemia Lipitor 40 mg p.o. q.d. #Type 2 diabetes, uncontrolled SSI aggressive Lantus 20 mg q.d. Consistent carb diet #Hypertension, uncontrolled Amlodipine 10 mg p.o. q.d. Metoprolol 50 mg p.o. b.i.d. Losartan 50 mg #Obesity Counseled on lifestyle modifications #Current smoker Counseled on smoking cessation DVT ppx: Lovenox Goals of care were discussed for over 30 minutes. Full code Case was discussed with Dr. Rasheed Plan discussed with: Patient, Other (rn) My Orders My Orders Orders - [facility] RESIDENT Procedure Category Date Status Time Ipratropium Medneb PHA 10/25/24 In Process (Atrovent Medneb) 14:00 Atorvastatin (Lipitor) PHA 10/25/24 In Process 22:00 Date of Service: Oct 25, 2024 Billing Provider: MARK RASHEED MD Common Visit Codes: [id number] INP/OBS CARE(HIGH) PAR[facility] JENSEN RESIDENT Oct 25, 2024 18:41 MARK RASHEED MD Oct 29, 2024 09:58
[2024-10-25] MEDS: ATORVASTATIN 20 MG TAB PO SCH (21:18)
[2024-10-26] VITALS (13 sets, daily range): BP systolic 103–137; BP diastolic 52–73; PULSE 63–81; RESP 17–20; TEMP 97.3–98.6; O2SAT 94–100
[2024-10-26] MEDS ORDERED: GUA200LQ PO (10:37)
[2024-10-26] MEDS ORDERED: ALBUAER3 IN (10:37)
--- NOTE | 2024-10-26 10:37 | ECG ---
[facility] Test Date: 2024-10-25 Test Time: 00:13:26 Pat Name: NIYA GAMEZ Department: Respiratoy Room: 0207 A Gender: F Informaticist: SANIYA : 1975 Requested By: PARISH PRESLEY Order Number: [id number] [place] MD: Measurements Intervals Morton Rate: 70 P: -20 NH: 137 QRS: 12 QRSD: 94 T: 50 QT: 406 QTc: 439 Interpretive Statements Sinus rhythm ST elev, probable normal early repol pattern Please click the below link to view image of tracing.
--- NOTE | 2024-10-26 13:35 | DVHDSRES ---
Discharge Summary Date of Admission Resident Creating Document: PAR[facility] JENSEN RESIDENT Oct 23, 2024 at 21:28 Date of Discharge: Oct 26, 2024 Admitting Diagnosis #UTI, complicated, pyelonephritis Labs/Diagnostic Data: Laboratory Results Test 10/26/24 11:26 10/25/24 01:10 10/24/24 05:11 10/23/24 22:17 POC Glucose 248 mg/dl (70-106) Troponin I High Sensitivity 7 ng/L (</=34) White Blood Count 6.4 10^3/uL (4.4-10.8) Red Blood Count 3.13 10^6/uL (4.0-5.20) Hemoglobin 9.4 g/dL (12.2-16.2) Hematocrit 28.1 % (36.0-46.0) Mean Corpuscular Volume 89.7 fL (80.0-100.0) Mean Corpuscular Hemoglobin 29.9 pg (28.0-32.0) Mean Corpuscular Hemoglobin Concent 33.4 g/dL (32.0-36.0) Red Cell Distribution Width 15.1 % (11.8-14.3) Platelet Count 333 10^3/uL (140-450) Mean Platelet Volume 8.9 fL (6.9-10.8) Neutrophils (%) (Auto) 52.4 % (37.0-80.0) Lymphocytes (%) (Auto) 32.8 % (10.0-50.0) Monocytes (%) (Auto) 10.3 % (0.0-12.0) Eosinophils (%) (Auto) 3.9 % (0.0-7.0) Basophils (%) (Auto) 0.6 % (0.0-2.0) Neutrophils # (Auto) 3.3 10 ^3/uL (1.6-8.6) Lymphocytes # (Auto) 2.1 10 ^3/uL (0.4-5.4) Monocytes # (Auto) 0.7 10 ^3/uL (0-1.3) Eosinophils # (Auto) 0.2 10 ^3/uL (0-0.8) Basophils # (Auto) 0 10 ^3/uL (0-0.2) Nucleated Red Blood Cells 0.0 % Sodium Level 136 mmol/L (136-145) Potassium Level 4.1 mmol/L (3.5-5.1) Chloride Level 109 mmol/L (98-107) Carbon Dioxide Level 21 mmol/L (20-31) Anion Gap 6 (5-15) Blood Urea Nitrogen 21 mg/dL (9-23) Creatinine 1.90 mg/dL (0.550-1.02) Glomerular Filtration Rate Calc 32 mL/min (>90) BUN/Creatinine Ratio 11.1 (10.0-20.0) Serum Glucose 171 mg/dL (74-106) Calcium Level 9.0 mg/dL (8.7-10.4) Influenza Type A Antigen Negative (Negative) Influenza Type B Antigen Negative (Negative) SARS-CoV-2 Antigen (Rapid) Positive (NEGATIVE) Test 10/23/24 22:11 10/23/24 15:15 Lactic Acid Level 0.7 mmol/L (0.4-2.0) Total Bilirubin < 0.2 mg/dL (0.2-1.0) Direct Bilirubin < 0.1 mg/dL (<0.3) Aspartate Amino Transferase (AST) 8 U/L (13-40) Alanine Aminotransferase (ALT) 10 U/L (7-40) Alkaline Phosphatase 120 U/L (46-116) Total Protein 6.1 g/dL (5.7-8.2) Albumin 3.8 g/dL (3.2-4.8) Lipase 58 U/L (12-53) Beta HCG, Quantitative 0.6 mIU/mL (1.5-4.2) Urine Color Colorless (Yellow) Urine Clarity Turbid (Clear) Urine pH 6.5 (5.0-9.0) Urine Specific [place] 1.012 (1.001-1.035) Urine Protein 3+ (Negative) Urine Ketones Negative (Negative) Urine Blood 1+ /uL (Negative) Urine Nitrite Negative (Negative) Urine Bilirubin Negative (Negative) Urine Urobilinogen Normal mg/dL (Negative) Urine Leukocyte Esterase 2+ /uL (Negative) Urine RBC 3 /hpf (0 - 4) Urine Microscopic WBC 36 /HPF (0-5) Urine Squamous Epithelial Cells Mod /hpf (<5) Urine Bacteria Few /hpf (None Seen) Urine Mucus Few (None Seen) Urine Glucose 4+ mg/dL (Normal) Urine Opiates Screen Neg (NEGATIVE) Urine Fentanyl Screen Neg (NEGATIVE) Urine Barbiturates Screen Neg (NEGATIVE) Urine Phencyclidine Screen Neg (NEGATIVE) Urine Amphetamines Screen Neg (NEGATIVE) Urine Benzodiazepines Screen Neg (NEGATIVE) Urine Cocaine Screen Neg (NEGATIVE) Urine Cannabinoids Screen Neg (NEGATIVE) Other Laboratory Tests 10/24/24 05:11 Brief Hx & Hospital Course: A 48-year-old female with a history of CHF, CKD stage 3, hyperlipidemia, type 2 diabetes, and hypertension presented to the ED with flu-like symptoms, productive cough, fever, chills, general malaise, and upper quadrant abdominal pain. Covid (+) in her admission, also her blood glucose High at home Imaging confirmed complicated pyelonephritis, urine culture came positive for 3 colonies but previous culture showed up Ecoli ESBL, During hospitalization, she was managed with IV AB ertapenem which is gonna be continue at home for 2 weeks more. Also her uncontrolled diabetes was managed with SSI and lantus, uncontrolled hypertension with amlodipine, metoprolol, and losartan, GERD with IV protonix, and chronic diastolic CHF with Lasix. She was counseled on smoking cessation, weight loss, and the importance of a consistent carbohydrate diet. The patients acute kidney injury was likely hemodynamically mediated in the setting of sepsis and underlying diabetic nephropathy. She was discharged in stable condition with a follow-up plan including primary care and HH for IV AB. General Appearance: Alert, Oriented X3, Cooperative, mild distress HEENT: Atraumatic, EOMI Respiratory: Clear to auscultation, Normal air movement Cardiovascular: Regular rate, Normal S1, Normal S2, No murmurs Abdominal: Normal bowel sounds, Soft, No tenderness, No hepatospenomegaly, No masses Extremities: No clubbing, No cyanosis, Normal pulses, Other (mild pedal edema) Skin: No rashes, No breakdown, No significant lesion Neuro: Normal gait, Normal speech, Strength at 5/5 X4 ext, Normal tone Psych/Mental Status: Mental status NL, Mood NL Case discussed with Dr Rasheed Time spent on care 23 min Operations or Procedures CLINICAL HISTORY: abdominal pain, cva tenderness r/o nephrolithiasis TECHNIQUE: CT of the abdomen and pelvis was performed without intravenous contrast. This exam was performed according to our departmental dose optimization program. Up-to-date CT equipment and radiation dose reduction techniques are utilized as appropriate. CTDI: [CTDIvol] DLP: 1065.67 WID: COMPARISON: CT CT AB PEL WO CON-NO ORAL OR IV on DOS: 07/19/24, FINDINGS: Lower Thorax: Minimal linear bibasilar scarring or atelectasis. Upper limits of normal-sized heart. At least mild coronary artery calcifications partially imaged. Hypodensity of the blood pool relative to the myocardium indicative of anemia. Liver and Biliary system: Mild hepatomegaly measuring 19 cm craniocaudal. Prior cholecystectomy. Otherwise unremarkable. Spleen: Unremarkable. Adrenal Glands and Kidneys: Normal adrenal glands. There is persistent moderate perinephric soft tissue stranding. Mild bilateral urothelial thickening. No hydronephrosis or nephrolithiasis. Pancreas and Retroperitoneum: Grossly normal unopacified pancreas. Prominent retroperitoneal lymph nodes. Aorta and Major Vessels: Aortoiliac vessels are normal in caliber containing mild calcified atherosclerotic plaque Bowel, Mesentery and Peritoneal space: Normal caliber small and large bowel. Prior appendectomy. No free air or fluid collection. Pelvis: Urinary bladder is mildly distended. Prominent cervical nabothian cysts. There is no pelvic lymphadenopathy. There is a cystic lesion in the left ovary measuring 2.3 cm likely a follicular cyst. The uterus and right ovary are otherwise grossly unremarkable Abdominal wall and Osseous Structures: Subcutaneous body wall edema. Mild lower thoracic and lumbar spondylosis. No destructive osseous lesion. IMPRESSION: 1. Persistent moderate perinephric soft tissue stranding and mild bilateral urothelial thickening. Findings could be due to pyelonephritis and urinary tract infection. Correlate with urinalysis. 2. Anemia suggested. Correlate with CBC 3. At least mild calcified coronary artery disease, partially imaged. 4. Mild hepatomegaly. Condition at Discharge: Stable Final Diagnosis/Problems List #Covid + #UTI, complicated, pyelonephritis #History of ESBL #ERIK hemodinamically mediated VMN on CKD stage 3 #Long standing diabetic nephropathy #GERD #Chronic diastolic CHF #Hyperlipidemia #Type 2 diabetes, uncontrolled #Hypertension, uncontrolled #Obesity #Current smoker Discharge Disposition: Home with Health Services Discharge Instruct/Medications Diet: Consistent carbohydrate, Cardiac 2g Na,low cholest Activity: Light activity Follow Up/Referral: f/u dc clinic in 7 days Medications: resume home meds + IV ab Discharge Statement: "Patient was advised to return to the ER or call 911 if any headaches, dizziness, shortness of breath, chest pain, abdominal pain, bleeding, fevers, or worsening of medical condition. Patient was counseled about treatment plan, medications, possible side effects, patientverbalized understanding. All questions were answered to the best of my ability. This discharge took greater then 30 minutes in planning, reviewing documentation, counseling the patient, and discussing with other team members." ASSESSMENT ASSESSMENT Assessment covid + pyelonephritis UTI ESBL Date of Service: Oct 26, 2024 Billing Provider: MARK RASHEED MD Common Visit Codes: [id number] DISCH DAY >30min PARISH JENSEN RESIDENT Oct 26, 2024 13:35 MARK RASHEED MD Oct 29, 2024 10:00
[2024-10-27] VITALS (15 sets, daily range): BP systolic 110–137; BP diastolic 47–78; PULSE 63–77; RESP 15–20; TEMP 97.5–98.8; O2SAT 94–100
--- NOTE | 2024-10-27 15:04 | DVHPN2 ---
Subjective Patient doing well. No Acute complaints. Unable to dsicahrge yesterday due to lack of home health set up and IV antiboitocs. Reviewed: Care Plan Changes from previous H/P or p: No Changes Eyes: No Pain, No Vision change, No Conjunctivae inflammation, No Eyelid inflammation, No Other, No Redness ENT: No Ear pain, No Ear discharge, No Nose pain, No Nose discharge, No Nose congestion, No Mouth pain, No Mouth swelling, No Throat pain, No Throat swelling, No Other Cardiovascular: No Chest Pain, No Palpitations, No Orthopnea, No Paroxysmal Noc. Dyspnea, No Edema, No Lt Headedness, No Other Respiratory: Cough; No Dry; Shortness of breath; No SOB with excertion, No Wheezing, No Hemoptysis, No Pleuritic Pain, No Sputum, No Other Gastrointestinal: Nausea; No Vomiting; Abdominal Pain; No Diarrhea, No Constipation, No Melena, No Hematochezia, No Other Genitourinary: Dysuria, Frequency; No Incontinence, No Hematuria, No Retention, No Other Musculoskeletal: No other, No neck pain, No shoulder pain, No arm pain, No back pain, No hand pain, No leg pain, No foot pain Skin: No Rash, No Lesions, No Jaundice, No Bruising, No Other Objective Vitals Vital Signs Date Time Temp Pulse Resp B/P (MAP) Pulse Ox O2 Delivery O2 Flow Rate FiO2 10/27/24 13:30 63 16 100 10/27/24 13:24 Room Air* 0 21 10/27/24 13:00 98.8 123/62 (82) 98.8 Intake/Output Intake and Output 10/27/24 07:00 Intake Total 3133 ml Balance 3133 ml Intake Oral 3083 ml IV Total 50 ml # Voids 7 General Appearance: Alert, Oriented X3 HEENT: Atraumatic Lungs: Clear to auscultation, Normal air movement Abdomen: Normal bowel sounds, Soft, No tenderness Back: No Flank Tenderness Neuro: Normal gait Psych/Mental Status: Mental status NL Medications Current Medications Medications Dose Ordered Sig/Mariel Route Start Time Stop Time Status Last Admin Dose Admin Insulin Glargine 20 units DAILY@1000 SC 10/25/24 10:00 10/27/24 09:15 20 UNITS Amlodipine Besylate 10 mg DAILY PO 10/24/24 10:00 10/27/24 09:13 10 MG Metoprolol Tartrate 50 mg BID PO 10/23/24 22:00 10/27/24 09:14 50 MG Gabapentin 400 mg BID PO 10/23/24 22:00 10/27/24 09:14 400 MG Albuterol 2.5 mg Q8HPRN PRN NEB 10/23/24 21:30 10/25/24 22:37 2.5 MG Ipratropium [place] 0.5 mg Q8HPRN PRN NEB 10/23/24 21:30 Pantoprazole Sodium 40 mg DAILY IV 10/25/24 10:00 10/27/24 09:12 40 MG Acetaminophen 650 mg Q6HP PRN PO 10/23/24 23:45 10/26/24 06:22 650 MG Enoxaparin Sodium 40 mg Q24H SC 10/25/24 01:00 10/27/24 00:01 40 MG Ertapenem 1 gm/ Sodium Chloride 50 ml @ 100 mls/hr Q24H IV 10/24/24 08:00 10/27/24 09:12 100 MLS/HR Guaifenesin 200 mg Q6HP PRN PO 10/24/24 00:45 10/26/24 17:45 200 MG Diagnostic Test (Pha) 1 strip Q6HR 10/24/24 06:00 10/27/24 12:29 1 STRIP Insulin Human Regular Q6HR SC 10/24/24 06:00 10/27/24 05:33 2 UNITS Dextrose 50 ml UD PRN IV 10/24/24 05:45 Losartan Potassium 50 mg DAILY PO 10/25/24 10:00 10/27/24 09:14 50 MG Tramadol HCl 50 mg Q6HP PRN PO 10/24/24 17:15 10/26/24 17:45 50 MG Ipratropium [place] 0.5 mg Q8HR NEB 10/25/24 14:00 10/27/24 13:24 0.5 MG Atorvastatin Calcium 40 mg HS PO 10/25/24 22:00 10/26/24 21:50 40 MG Laboratory Results Laboratory Tests 10/24/24 05:11 Urinalysis Test 10/23/24 15:15 Urine Color Colorless (Yellow) Urine Clarity Turbid (Clear) H Urine pH 6.5 (5.0-9.0) Urine Specific [place] 1.012 (1.001-1.035) Urine Protein 3+ (Negative) H Urine Ketones Negative (Negative) Urine Blood 1+ /uL (Negative) H Urine Nitrite Negative (Negative) Urine Bilirubin Negative (Negative) Urine Urobilinogen Normal mg/dL (Negative) Urine Leukocyte Esterase 2+ /uL (Negative) Urine RBC 3 /hpf (0 - 4) Urine Microscopic WBC 36 /HPF (0-5) H Urine Squamous Epithelial Cells Mod /hpf (<5) Urine Bacteria Few /hpf (None Seen) H Urine Mucus Few (None Seen) Urine Glucose 4+ mg/dL (Normal) H Microbiology Microbiology Date/Time Source Procedure Growth Status 10/24/24 01:42 Nose MRSA Screen - Final Complete 10/23/24 15:15 Voided Urine Urine Culture - Final Complete Assessment/Plan Assessment/Plan #Covid + - improving #UTI, complicated, pyelonephritis -improving #History of ESBL #ERIK hemodinamically mediated VMN on CKD stage 3 #Long standing diabetic nephropathy #GERD #Chronic diastolic CHF #Hyperlipidemia #Type 2 diabetes, uncontrolled #Hypertension, uncontrolled #Obesity #Current smoker Discharge today with Home with Health Services f/u dc clinic in 7 days resume home meds + IV ab Plan discussed with: Patient Date of Service: Oct 27, 2024 Billing Provider: ROWAN MCGEE MD Common Visit Codes: [id number] INP/OBS CARE(MOD) ROWAN MCGEE MD Oct 27, 2024 15:04
== END 2024-10-27 21:22 | disposition home health service (06) | DRG 137 ==
LOC: ER 13:20 → OVERFLOW 21:28 → CENTRAL 23:32
PROVIDERS: ADMIT Student in an Organized Health Care Education/Training Program; ATTEND Student in an Organized Health Care Education/Training Program
PROC: 05HC33Z Insertion of Infusion Device into Left Basilic Vein, Percutaneous Approach (ICD-10-PCS; principal; 2024-10-24)
PROC: B54NZZA Ultrasonography of Left Upper Extremity Veins, Guidance (ICD-10-PCS; 2024-10-24)
DX: U07.1 COVID-19 (principal); N17.0 Acute kidney failure with tubular necrosis; E11.22 Type 2 diabetes mellitus with diabetic chronic kidney disease; I13.0 Hypertensive heart and chronic kidney disease with heart failure and stage 1 through stage 4 chronic kidney disease, or unspecified chronic kidney disease; N12 Tubulo-interstitial nephritis, not specified as acute or chronic; E11.65 Type 2 diabetes mellitus with hyperglycemia; F17.210 Nicotine dependence, cigarettes, uncomplicated; E78.5 Hyperlipidemia, unspecified; I50.32 Chronic diastolic (congestive) heart failure; N18.30 Chronic kidney disease, stage 3 unspecified; E66.9 Obesity, unspecified; K21.9 Gastro-esophageal reflux disease without esophagitis; Z86.19 Personal history of other infectious and parasitic diseases; Z90.49 Acquired absence of other specified parts of digestive tract; Z87.442 Personal history of urinary calculi; Z68.35 Body mass index [BMI] 35.0-35.9, adult
CPT/HCPCS: 36415; 71045; 74176; 80048; 80076; 80307; 81001; 82962; 83605; 83690; 84484; 84702; 85025; 87081; 87086; 87426; 87804; 93005; 94640; G0378; J1335; J1815; J2470

== ENCOUNTER 2024-12-11 14:27 | Inpatient (IN) | payer MEDICAID ==
[~2024-12-11] VITALS: Ht 154.9 cm; Wt 77.0 kg
[~2024-12-11 14:27] MED LIST changes: +ALBUAER3 IN; -CIPR-173 PO; +GUA200LQ PO; -INSREGI SC
[2024-12-11] MEDS: MORPHINE SULFATE 4 MG/ML SYR/VIAL IV ONE (14:38)
[2024-12-11] MEDS: ONDANSETRON HCL 4 MG/2 ML VIAL IV ONE (14:38)
--- NOTE | 2024-12-11 14:38 | ED.PDOC ---
HPI Comments 48 year old female ASHLEY presents to the ED with chief complaint of chest pain. Patient reports that she has been experiencing left sided chest pain for the past 3 days, however, while laying in bed today she started to experience sharp, crushing chest pain. Patient relays that her pain radiates to her left arm and she had taken ASA with no relief. EMS states patient was given 2 dose of NTG with no relief as well. Patient denies any headache, blurred vision, SOB, N/V, or dizziness. Time Seen by MD: 14:33 Primary Care Provider: unknown Reviewed Notes: Nurses Notes, Vocational Guidance Counselor Notes, Medications, Allergies Allergies: Coded Allergies: Codeine (Verified Allergy, Unknown, 03/20/19) Home Meds Active Scripts Albuterol Sulfate (VENTOLIN MDI) 90 Mcg Ih, 90 MCG IN TID for 5 Days, #1 INH Prov:PARISH JENSEN RESIDENT 10/26/24 Guaifenesin (Guaifenesin) 100 Mg/5 Ml Syp, 200 MG PO Q6HP PRN for 5 Days, #1 UNIT Prov:PARISH JENSEN RESIDENT 10/26/24 Ferrous Sulfate (Ferrous Sulfate) 325 Mg Tab, 325 MG PO DAILY for 30 Days, #30 TAB 2 Refills Prov:ANDREA JOSHUA RESIDENT 04/07/24 Reported Medications Insulin Lispro (Insulin Lispro Kwikpen) 100 Unit/Ml Inj, UNIT SC TID for 42 Days, #15 INJECT SUBCUTANEOUSLY 3 TIMES DAILY BEFORE MEAL(S) PER SLIDING SCALE DIRECTED. MAX 36 UNITS/DAY. 10/24/24 Spironolactone (Spironolactone) 25 Mg Tab, 1 TAB PO DAILY for 30 Days, #30 09/04/24 Amlodipine Besylate (Amlodipine Besylate) 10 Mg Tab, 1 TAB PO DAILY for 90 Days, #90 09/04/24 Pantoprazole Sodium Sesquihydr (Protonix) 40 Mg Tab, 1 TAB PO DAILY for 90 Days, #90 09/04/24 Metoprolol Tartrate (Metoprolol Tartrate) 50 Mg Tab, 1 TAB PO BID for 60 Days, #120 09/04/24 Metoclopramide Hcl (Metoclopramide Hcl) 5 Mg Tab, 1 TAB PO TID for 90 Days, #270 09/04/24 Insulin Glargine (Insulin Glargine) 100 Unit/Ml Marly, 46 UNIT SC QPM for 32 Days, #15 09/04/24 Gabapentin (Gabapentin) 100 Mg Cap, 400 MG PO BID for 90 Days, #180 09/04/24 Furosemide (Furosemide) 40 Mg Tab, 1 TAB PO DAILY for 90 Days, #90 09/04/24 Empagliflozin (Jardiance) 10 Mg Tab, 1 TAB PO DAILY for 90 Days, #90 09/04/24 Atorvastatin Calcium (Lipitor) 40 Mg Tab, 1 TAB PO DAILY for 90 Days, #90 09/04/24 Aspirin (Aspirin Low Dose) 81 Mg Chw, 1 TAB PO DAILY for 90 Days, #90 09/04/24 Information Source: Patient, Emergency Med Personnel Mode of Arrival: EMS Severity: Moderate Timing: Hours Duration: Since onset Prehospital treatment: None Location: Chest (L) Radiation: Arm (L) Quality: Sharp, Crushing Onset: At Rest Cardiac Risk Factors: HTN, Diabetes PE Risk Factors: None History of: Similar pain in past, [place] Past Medical History PAST MEDICAL HISTORY: CHF, CKF, DM, HTN, Kidney Stones, [place] Surgical History: Appendectomy, Cholecystectomy, DIAGNOSTIC TECHNOLOGIST History: No Pertinent DIAGNOSTIC TECHNOLOGIST History Family History Family History: Unknown Social History Smoker: Cigarettes, Less Than 1 Pack/Day Alcohol: Heavy Drugs: Marijuana Lives In: Home Constitutional: denies: chills, diaphoresis, fatigue, fever, malaise, sweats, weakness, others EENTM: denies: blurred vision, double vision, ear bleeding, ear discharge, ear drainage, ear pain, ear ringing, eye pain, eye redness, hearing loss, mouth pain, mouth swelling, nasal discharge, nose bleeding, nose congestion, nose pain, photophobia, tearing, throat pain, throat swelling, voice changes, others Respiratory: denies: cough, hemoptysis, orthopnea, SOB at rest, shortness of breath, SOB with excertion, stridor, wheezing, others Cardiovascular: reports: chest pain, left arm pain; denies: dizzy spells, diaphoresis, Dyspnea on exertion, edema, irregular heart beat, lightheadedness, palpitations, PND, syncope, others Gastrointestinal: denies: abdomen distended, abdominal pain, blood streaked bowels, constipated, diarrhea, dysphagia, difficulty swallowing, hematemesis, melena, nausea, poor appetite, poor fluid intake, rectal bleeding, rectal pain, vomiting, others Genitourinary: denies: abnormal vagina bleeding, burning, dyspareunia, dysuria, flank pain, frequency, hematuria, incontinence, pain, , vagina discharge, urgency, others Neurological: denies: dizziness, fainting, headache, left sided numbness, left sided weakness, numbness, paresthesia, pre-existing deficit, right sided numbness, right sided weakness, seizure, speech problems, tingling, tremors, weakness, others Musculoskeletal: denies: back pain, gout, joint pain, joint swelling, muscle pain, muscle stiffness, neck pain, others Integumetry: denies: bruises, change in color, change in hair/nails, dryness, laceration, lesions, lumps, rash, wounds, others Allergic/Immunocompromised: denies: Difficulty Healing, Frequent Infections, Hives, Itching, others Hematologic/Lymphatic: denies: anemia, blood clots, easy bleeding, easy bruising, swollen glands, others Endocrine: denies: excessive hunger, excessive sweating, excessive thirst, excessive urination, flushing, intolerance to cold, intolerance to heat, unexplained weight gain, unexplained weight loss, others Psychiatric: denies: anxiety, bipolar disorder, depression, hopeless, panic disorder, schizophrenia, sleepless, suicidal, others All Other Systems: Reviewed and Negative Physical Exam General Appearance: Moderate Distress, Normal HEENT: Normal ENT Inspection, PERRL/EOMI Neck: Full Range of Motion, Non-Tender, Normal, Normal Inspection Respiratory: Chest Non-Tender, Lungs Clear, No Accessory Muscle Use, No Respiratory Distress, Normal Breath Sounds Cardiovascular: No Edema, No JVD, No Murmur, No Gallop, Normal Peripheral Pulses, Regular Rate/Rhythm Breast Exam: Deferred Gastrointestinal: No Organomegaly, Non Tender, No Pulsatile Mass, Normal Bowel Sounds, Soft Genitalia: Deferred Pelvic: Deferred Rectal: Deferred Extremities: No calf tenderness, Normal capillary refill, Normal inspection, Normal range of motion, Non-tender, No pedal edema Musculoskeletal : Apperance: Normal Neurologic: Alert, plane captain II-XII nml as Tested, No Motor Deficits, Normal Affect, Normal Mood, No Sensory Deficits Cerebellar Function: NOT DONE Reflexes: NOT DONE Skin: Dry, Normal Color, Warm Peripheral Pulses: 3+ Radial (R), 3+ Radial (L) Lymphatic: No Adenopathy Was a procedure done? Was a procedure done?: No CP Differential Dx Differential Diagnosis: A-fib, A-Flutter, Angina, Anxiety / Panic Attack, Atrial Dysrhythmia, Electrolyte Disorder X-Ray, Labs, Meds, VS Vital Signs Date Time Temp Pulse Resp B/P (MAP) Pulse Ox O2 Delivery O2 Flow Rate FiO2 12/11/24 15:18 127/67 12/11/24 14:48 73 25 100 Room Air* 0 21 12/11/24 14:46 97.9 74 31 143/76 (98) 100 97.9 12/11/24 14:38 78 27 143/76 12/11/24 14:35 97.8 83 18 109/77 (88) 98 97.8 12/11/24 14:27 81 Lab Test 12/11/24 14:45 Range/Units White Blood Count 8.8 4.4-10.8 10^3/uL Red Blood Count 3.87 L 4.0-5.20 10^6/uL Hemoglobin 11.2 L 12.2-16.2 g/dL Hematocrit 34.4 L 36.0-46.0 % Mean Corpuscular Volume 88.8 80.0-100.0 fL Mean Corpuscular Hemoglobin 29.0 28.0-32.0 pg Mean Corpuscular Hemoglobin Concent 32.6 32.0-36.0 g/dL Red Cell Distribution Width 14.6 H 11.8-14.3 % Platelet Count 477 H 140-450 10^3/uL Mean Platelet Volume 8.8 6.9-10.8 fL Neutrophils (%) (Auto) 64.4 37.0-80.0 % Lymphocytes (%) (Auto) 28.4 10.0-50.0 % Monocytes (%) (Auto) 5.1 0.0-12.0 % Eosinophils (%) (Auto) 1.7 0.0-7.0 % Basophils (%) (Auto) 0.4 0.0-2.0 % Neutrophils # (Auto) 5.7 1.6-8.6 10 ^3/uL Lymphocytes # (Auto) 2.5 0.4-5.4 10 ^3/uL Monocytes # (Auto) 0.4 0-1.3 10 ^3/uL Eosinophils # (Auto) 0.1 0-0.8 10 ^3/uL Basophils # (Auto) 0 0-0.2 10 ^3/uL Nucleated Red Blood Cells 0.1 % Sodium Level 132 L 136-145 mmol/L Potassium Level 4.8 3.5-5.1 mmol/L Chloride Level 103 98-107 mmol/L Carbon Dioxide Level 21 20-31 mmol/L Anion Gap 8 5-15 Blood Urea Nitrogen 40 H 9-23 mg/dL Creatinine 2.55 H 0.550-1.02 mg/dL Glomerular Filtration Rate Calc 23 >90 mL/min BUN/Creatinine Ratio 15.7 10.0-20.0 Serum Glucose 469 *H 74-106 mg/dL Calcium Level 9.6 8.7-10.4 mg/dL Troponin I High Sensitivity 9 </=34 ng/L Current Medications Medications (Trade) Dose Ordered Sig/Mariel Route Start Time Stop Time Status Last Admin Morphine Sulfate 4 mg ONCE ONCE IV 12/11/24 14:45 12/11/24 14:46 DC 12/11/24 14:38 Ondansetron HCl (Zofran) 4 mg ONCE ONCE IV 12/11/24 14:45 12/11/24 14:46 DC 12/11/24 14:38 Nitroglycerin (Ntrostat Sublingual) 0.4 mg ONCE ONCE SL 12/11/24 14:45 12/11/24 14:46 DC 12/11/24 15:18 Patient alert. Complaining of chest pain. Blood sugar elevated. Saturation pristine on room air. Heart rate within normal limits. Establish intravenous access. Was given fluids. Increased BUN creatinine. Was given insulin. EKG reviewed does not show any acute changes. Spoke with Cardiology. Echocardiogram. Was given nitro. Was given morphine. Was given Zofran. Explained to the patient. Continue cardiac monitoring. Time of 1ST Reevaluation: 15:33 Reevaluation 1ST: Unchanged Patient Education/Counseling: Diagnosis, Treatment Family Education/Counseling: No Family Present Additional Information Previous visit documents reviewed: 10/23/24 for UTI The following tests were ordered, and results were reviewed by me: Additional Information was gathered from interviewing the following independent historians: EMS I reviewed and agreed with the following test results read by other providers: I discussed treatment and results with medical personnel and: Patient Departure 1 Departure Time of Disposition: 15:26 Impression: Primary Impression: Chest pain of unknown etiology Additional Impressions: HTN (hypertension) Qualified Codes: I10 - Essential (primary) hypertension Uncontrolled diabetes mellitus Qualified Codes: E13.65 - Other specified diabetes mellitus with hyperglycemia Disposition: ADMITTED INPATIENT Admit to: Med Surg Condition: Guarded Critical Care Note Critical Care Time?: Yes (90 min-critical care time only) Critical care comment: Blood sugar elevated Stability Stability form required: No Heart Score Heart Score: Heart Score Response (Comments) Value History Highly Suspicious 2 EKG Repolarization Disturb 1 Age 45-64 1 Risk Factors 1 or 2 risk factors 1 Troponin Normal limit 0 Total 5 I personally scribed for TERRY ODOM MD ([email or web address]) on 12/11/24 at 14:38. Electronically submitted by David Condon ([email or web address]). TERRY ODOM MD Dec 11, 2024 14:38
--- NOTE | 2024-12-11 14:43 | ECG ---
[facility] Test Date: 2024-12-11 Test Time: 14:25:58 Pat Name: NIYA GAMEZ Department: er Room: [address] [place] [address] Gender: F Event Services Manager: mary : 1975 Requested By: TERRY ODOM Order Number: [id number] Reading MD: Sachin Steve Measurements Intervals Weed Rate: 81 P: -7 MN: 133 QRS: 30 QRSD: 130 T: 82 QT: 427 QTc: 496 Interpretive Statements Sinus rhythm Probable left ventricular hypertrophy ST elevation, consider anterolateral injury Borderline prolonged QT interval Electronically Signed On 12-12-2024 22:39:26 PDT by Sachin Steve Please click the below link to view image of tracing.
[2024-12-11 14:48] VITALS: PULSE 73; RESP 25; O2SAT 100
[2024-12-11 14:58] LABS: Monocytes # (auto) 0.4 10 ^3/uL (0-1.3); Neutrophils # (auto) 5.7 10 ^3/uL (1.6-8.6); Nucleated Red Blood Cells % 0.1 %
[2024-12-11 15:00] LABS: Basophils # (auto) 0 10 ^3/uL (0-0.2); Basophils % (auto) 0.4 % (0.0-2.0); Eosinophils # (auto) 0.1 10 ^3/uL (0-0.8); Eosinophils % (auto) 1.7 % (0.0-7.0); Hematocrit 34.4 % (36.0-46.0); Hemoglobin 11.2 g/dL (12.2-16.2); Lymphocytes # (auto) 2.5 10 ^3/uL (0.4-5.4); Lymphocytes % (auto) 28.4 % (10.0-50.0); Mean Corpuscular Hgb Conc. 32.6 g/dL (32.0-36.0); Mean Corpuscular Volume 88.8 fL (80.0-100.0); Monocytes % (auto) 5.1 % (0.0-12.0); Neutrophils % (auto) 64.4 % (37.0-80.0); Platelet Count (auto) 477 10^3/uL (140-450); Red Blood Cells 3.87 10^6/uL (4.0-5.20); Red Cell Distribution Width 14.6 % (11.8-14.3); White Blood Cell 8.8 10^3/uL (4.4-10.8)
[2024-12-11 15:08] LABS: Chloride 103 mmol/L (98-107); Potassium 4.8 mmol/L (3.5-5.1)
[2024-12-11 15:09] LABS: Anion Gap 8 (5-15); Calcium 9.6 mg/dL (8.7-10.4); Carbon Dioxide 21 mmol/L (20-31)
[2024-12-11 15:14] LABS: BUN/Creatinine Ratio 15.7 (10.0-20.0)
[2024-12-11] MEDS: NITROGLYCERIN 0.4 MG SL TAB SL ONE (15:18)
[2024-12-11 15:21] LABS: Blood Urea Nitrogen 40 mg/dL (9-23); Sodium 132 mmol/L (136-145)
[2024-12-11 15:22] LABS: Glucose 469 mg/dL (74-106)
--- NOTE | 2024-12-11 15:24 | DVH ---
CHEST RADIOGRAPH Indication: sob Technique: Single frontal view of the chest was obtained COMPARISON: XY CHEST XRAY 1 VIEW on DOS: 10/23/24, XY CHEST XRAY 1 VIEW on DOS: 09/06/24, XY CHEST POR TABLE on DOS: 09/03/24, XY CHEST PORTABLE on DOS: 07/19/24, XY CHEST XRAY 1 VIEW on DOS: 04/02/24 FINDINGS: Lines and Tubes: None Lungs: Clear Pleura: No effusion. No pneumothorax. Cardiomediastinal contours: Unremarkable Bones: Unremarkable IMPRESSION: No acute disease.
[2024-12-11] MEDS: InsuLIN REG 1unit/0.01ml Soln (100units/ml) IV ONE (16:23)
--- NOTE | 2024-12-11 18:57 | DVHINCON2 ---
[facility] 12/11/24 1857: Date Seen: Dec 11, 2024 Referring Physician MD Rochelle Reason for Consultation Chest pain History of Present Illness This is a 48-year-old female who presented to the emergency room via EMS with a chief complaint of chest pain. Describes her chest pain as left-sided, radiating to the left upper extremity, stabbing in nature, and non provoked. The chest pain is reproducible upon palpation and left upper extremity movement/extension. She underwent a 12 lead electrocardiogram revealing a sinus rhythm with nonspecific inferior ST changes. Serial troponin levels are negative. Significant medical history includes hypertension, diabetes mellitus, dyslipidemia, chronic kidney disease, anemia with history of menorrhagia, history of drug/alcohol abuse, current tobacco use, and obesity. Past Medical History Past medical history reviewed. No other significant than mentioned above. Past Surgical History Past Surgical history reviewed. No other significant than mentioned above. Family History: Alcoholism Family history: Cardiovascular disease G8 MOTHER Family history: Diabetes mellitus G8 MOTHER Family history: Hypertension G8 MOTHER Heart attack G8 MOTHER Stroke G8 MOTHER Tuberculosis G8 FATHER Family History Family history reviewed. Social History See HPI. Allergies: Coded Allergies: Codeine (Verified Allergy, Unknown, 03/20/19) Home Meds Active Scripts Albuterol Sulfate (VENTOLIN MDI) 90 Mcg Ih, 90 MCG IN TID for 5 Days, #1 INH Prov:PARISH JENSEN RESIDENT 10/26/24 Guaifenesin (Guaifenesin) 100 Mg/5 Ml Syp, 200 MG PO Q6HP PRN for 5 Days, #1 UNIT Prov:PARISH JENSEN RESIDENT 10/26/24 Ferrous Sulfate (Ferrous Sulfate) 325 Mg Tab, 325 MG PO DAILY for 30 Days, #30 TAB 2 Refills Prov:ANDREA JOSHUA RESIDENT 04/07/24 Reported Medications Insulin Lispro (Insulin Lispro Kwikpen) 100 Unit/Ml Inj, UNIT SC TID for 42 Days, #15 INJECT SUBCUTANEOUSLY 3 TIMES DAILY BEFORE MEAL(S) PER SLIDING SCALE DIRECTED. MAX 36 UNITS/DAY. 10/24/24 Spironolactone (Spironolactone) 25 Mg Tab, 1 TAB PO DAILY for 30 Days, #30 09/04/24 Amlodipine Besylate (Amlodipine Besylate) 10 Mg Tab, 1 TAB PO DAILY for 90 Days, #90 09/04/24 Pantoprazole Sodium Sesquihydr (Protonix) 40 Mg Tab, 1 TAB PO DAILY for 90 Days, #90 09/04/24 Metoprolol Tartrate (Metoprolol Tartrate) 50 Mg Tab, 1 TAB PO BID for 60 Days, #120 09/04/24 Metoclopramide Hcl (Metoclopramide Hcl) 5 Mg Tab, 1 TAB PO TID for 90 Days, #270 09/04/24 Insulin Glargine (Insulin Glargine) 100 Unit/Ml Marly, 46 UNIT SC QPM for 32 Days, #15 09/04/24 Gabapentin (Gabapentin) 100 Mg Cap, 400 MG PO BID for 90 Days, #180 09/04/24 Furosemide (Furosemide) 40 Mg Tab, 1 TAB PO DAILY for 90 Days, #90 09/04/24 Empagliflozin (Jardiance) 10 Mg Tab, 1 TAB PO DAILY for 90 Days, #90 09/04/24 Atorvastatin Calcium (Lipitor) 40 Mg Tab, 1 TAB PO DAILY for 90 Days, #90 09/04/24 Aspirin (Aspirin Low Dose) 81 Mg Chw, 1 TAB PO DAILY for 90 Days, #90 09/04/24 Home Meds Home medications reviewed. Review of Systems Constitutional: No symptom reported Ears, Nose, & Throat: No symptom reported Eyes: No symptom reported Neurological: No symptoms reported Pulmonary/Respiratory: No symptom reported Cardiovascular: No symptom reported Gastrointestinal: No symptom reported Genitourinary: No symptom reported Musculoskeletal: Chest wall pain, left upper extremity pain Skin: No symptom reported Psychiatric: No symptom reported Endocrine: No symptom reported Hemotologic/Lymphatic: No symptom reported Vital Signs Vital Signs Date Time Temp Pulse Resp B/P (MAP) Pulse Ox O2 Delivery O2 Flow Rate FiO2 12/11/24 16:28 145/81 12/11/24 16:27 70 15 12/11/24 14:48 100 Room Air* 0 21 12/11/24 14:46 97.9 97.9 Physical Exam General Appearance: Cooperative. Well developed. Well nourished. In no acute distress Head Exam: Normal inspection Neck Exam: Normal inspection. Non-tender. Normal alignment Pulmonary/Respiratory: Chest non-tender. Clear bilateral breath sounds Cardiovascular/Chest: Regular rate and rhythm. S1, S2. Sinus rhythm with nonspecific inferior ST changes. No murmurs. No JVD. Peripheral Pulses: 2+ Radial (R). 2+ Radial (L). 2+ Pedal (R). 2+ Pedal (L) Abdominal Exam: Normal bowel sounds. Soft. Nontender. No hepatospenomegaly. No masses Ankle Exam: Negative ankle edema Lower extremities: Negative lower extremity edema Neuro/Mental Status: A&O x4. Coherent Thoughts/Psych: Normal thought pattern. Anxious Appearance: In no acute distress Skin Exam: Normal inspection. Normal color. Warm. Dry Labs/Diagnostic Data Labs Test 12/11/24 16:20 12/11/24 15:42 12/11/24 14:45 Range/Units POC Glucose 332 H 70-106 mg/dl Troponin I High Sensitivity 8 </=34 ng/L White Blood Count 8.8 4.4-10.8 10^3/uL Red Blood Count 3.87 L 4.0-5.20 10^6/uL Hemoglobin 11.2 L 12.2-16.2 g/dL Hematocrit 34.4 L 36.0-46.0 % Mean Corpuscular Volume 88.8 80.0-100.0 fL Mean Corpuscular Hemoglobin 29.0 28.0-32.0 pg Mean Corpuscular Hemoglobin Concent 32.6 32.0-36.0 g/dL Red Cell Distribution Width 14.6 H 11.8-14.3 % Platelet Count 477 H 140-450 10^3/uL Mean Platelet Volume 8.8 6.9-10.8 fL Neutrophils (%) (Auto) 64.4 37.0-80.0 % Lymphocytes (%) (Auto) 28.4 10.0-50.0 % Monocytes (%) (Auto) 5.1 0.0-12.0 % Eosinophils (%) (Auto) 1.7 0.0-7.0 % Basophils (%) (Auto) 0.4 0.0-2.0 % Neutrophils # (Auto) 5.7 1.6-8.6 10 ^3/uL Lymphocytes # (Auto) 2.5 0.4-5.4 10 ^3/uL Monocytes # (Auto) 0.4 0-1.3 10 ^3/uL Eosinophils # (Auto) 0.1 0-0.8 10 ^3/uL Basophils # (Auto) 0 0-0.2 10 ^3/uL Nucleated Red Blood Cells 0.1 % Sodium Level 132 L 136-145 mmol/L Potassium Level 4.8 3.5-5.1 mmol/L Chloride Level 103 98-107 mmol/L Carbon Dioxide Level 21 20-31 mmol/L Anion Gap 8 5-15 Blood Urea Nitrogen 40 H 9-23 mg/dL Creatinine 2.55 H 0.550-1.02 mg/dL Glomerular Filtration Rate Calc 23 >90 mL/min BUN/Creatinine Ratio 15.7 10.0-20.0 Serum Glucose 469 *H 74-106 mg/dL Calcium Level 9.6 8.7-10.4 mg/dL Assessment Noncardiac chest pain, musculoskeletal in nature Insulin-dependent diabetes mellitus Dyslipidemia Likely ERIK on CKD stage IIIB Nicotine dependence Obesity Plan/Recommendation (Dr. Calhoun) Echocardiogram from 04/07/2024 revealed EF 60% with grade 1 diastolic dysfunction. The patient presents with noncardiac chest pain which is musculoskeletal in nature. Possible differentials includes costochondritis, shoulder injury, or osteoarthritis. There is no further cardiac workup indic ated at this time. Kindly call if in need to re-consult. Thank you for allowing us to participate in this patient's care. This medical document was created using an electronic medical record system with voice recognition software and computerized dictation system. Although this document has been carefully reviewed, there might still be some phonetic and typographical errors. Occasional wrong-word or ``sound-alike substitutions may have occurred due to the inherent limitations of voice recognition software. These areas are purely typographical due to imperfections of the software programs and do not reflect any compromise in the patient's medical care. Please read the chart carefully and recognize, using context, where these substitutions have occurred. Plan discussed with: Patient, Other NYHA Physical activity limitations: NA Date of Service: Dec 11, 2024 Billing Provider: [facility] Cardiology Common Codes: 52505-CAMFUOG INP/OBS CARE (High) VIMAL VIEIRA DO 12/11/241933: Date Seen: Dec 11, 2024 Family History: Alcoholism Family history: Cardiovascular disease G8 MOTHER Family history: Diabetes mellitus G8 MOTHER Family history: Hypertension G8 MOTHER Heart attack G8 MOTHER Stroke G8 MOTHER Tuberculosis G8 FATHER Allergies: Coded Allergies: Codeine (Verified Allergy, Unknown, 6/25/19) Home Meds Active Scripts Albuterol Sulfate (VENTOLIN MDI) 90 Mcg Ih, 90 MCG IN TID for 5 Days, #1 INH Prov:PARISH JENSEN RESIDENT 10/26/24 Guaifenesin (Guaifenesin) 100 Mg/5 Ml Syp, 200 MG PO Q6HP PRN for 5 Days, #1 UNIT Prov:PARISH JENSEN RESIDENT 10/26/24 Ferrous Sulfate (Ferrous Sulfate) 325 Mg Tab, 325 MG PO DAILY for 30 Days, #30 TAB 2 Refills Prov:ANDREA JOSHUA RESIDENT 04/07/24 Reported Medications Insulin Lispro (Insulin Lispro Kwikpen) 100 Unit/Ml Inj, UNIT SC TID for 42 Days, #15 INJECT SUBCUTANEOUSLY 3 TIMES DAILY BEFORE MEAL(S) PER SLIDING SCALE DIRECTED. MAX 36 UNITS/DAY. 10/24/24 Spironolactone (Spironolactone) 25 Mg Tab, 1 TAB PO DAILY for 30 Days, #30 09/04/24 Amlodipine Besylate (Amlodipine Besylate) 10 Mg Tab, 1 TAB PO DAILY for 90 Days, #90 09/04/24 Pantoprazole Sodium Sesquihydr (Protonix) 40 Mg Tab, 1 TAB PO DAILY for 90 Days, #90 09/04/24 Metoprolol Tartrate (Metoprolol Tartrate) 50 Mg Tab, 1 TAB PO BID for 60 Days, #120 09/04/24 Metoclopramide Hcl (Metoclopramide Hcl) 5 Mg Tab, 1 TAB PO TID for 90 Days, #270 09/04/24 Insulin Glargine (Insulin Glargine) 100 Unit/Ml Marly, 46 UNIT SC QPM for 32 Days, #15 09/04/24 Gabapentin (Gabapentin) 100 Mg Cap, 400 MG PO BID for 90 Days, #180 09/04/24 Furosemide (Furosemide) 40 Mg Tab, 1 TAB PO DAILY for 90 Days, #90 09/04/24 Empagliflozin (Jardiance) 10 Mg Tab, 1 TAB PO DAILY for 90 Days, #90 09/04/24 Atorvastatin Calcium (Lipitor) 40 Mg Tab, 1 TAB PO DAILY for 90 Days, #90 09/04/24 Aspirin (Aspirin Low Dose) 81 Mg Chw, 1 TAB PO DAILY for 90 Days, #90 09/04/24 Plan/Recommendation The patient was seen and discussed with Haylee Tomlinson NP. I agree with her Assessment and Plan, which was formulated with me. Plan discussed with: Patient Date of Service: Dec 11, 2024 Billing Provider: VIMAL VIEIRA DO Cardiology Common Codes: 40035-NYLAHBV INP/OBS CARE (High) [facility] Dec 11, 2024 18:57 VIMAL VIEIRA DO Dec 11, 2024 19:34
[2024-12-11] MEDS ORDERED: ONDANSETRON HCL 4 MG/2 ML VIAL IV PRN (19:30)
[2024-12-11] MEDS ORDERED: NITROGLYCERIN 0.4 MG SL TAB SL PRN (19:30)
[2024-12-11] MEDS ORDERED: DEXTROSE (50%) 50ML SYRG IV PRN (19:30)
[2024-12-11 19:59] VITALS: PULSE 82; RESP 15; O2SAT 98
[2024-12-11] MEDS: InsuLIN REG 1unit/0.01ml Soln (100units/ml) SC SCH (20:00)
[2024-12-11] MEDS: ACCU-CHEK COMFORT CURVE STRIP VI SCH (20:00)
[2024-12-11 20:26] VITALS: BP 139/71; PULSE 71; RESP 18; O2SAT 97
[2024-12-11] MEDS: METOPROLOL TARTRATE 50 MG TAB PO SCH (20:59)
[2024-12-11] MEDS: ATORVASTATIN 20 MG TAB PO SCH (20:59)
[2024-12-11] MEDS: ACETAMINOPHEN 325 MG TAB PO PRN (21:07)
[2024-12-12] VITALS (8 sets, daily range): BP systolic 112–114; BP diastolic 63–66; PULSE 65–82; RESP 14–20; TEMP 97–98; O2SAT 93–100
[2024-12-12] MEDS: GABAPENTIN 400 MG CAP PO SCH (01:24)
[2024-12-12] MEDS: MORPHINE SULFATE INJ 2 MG/ml SYRG IV PRN (01:47)
--- NOTE | 2024-12-12 04:17 | DVHHP2 ---
History of Present Illness Reason for Visit: Chest pain History of Present Illness 48-year-old female presents for evaluation of chest pain. Patient reports a three day history of pain that starts on her left arm and radiates to her left chest. She reports occasional shortness for breath. No nausea or vomiting. No other acute complaints reported. Past Medical History Hypertension, diabetes mellitus, CHF, mi Past Surgical History Cholecystectomy, appendectomy Family History Noncontributory Smoke: <1 pack per day ALCOHOL: heavy Drugs: Marijuana Lives: with Family Review of Systems Review of Systems Review of systems are currently negative otherwise addressed in HPI. Allergies: Coded Allergies: Codeine (Verified Allergy, Unknown, 03/20/19) Medications Current Medications Medications Dose Ordered Sig/Mariel Route Start Time Stop Time Status Last Admin Dose Admin Amlodipine Besylate 10 mg DAILY PO 12/12/24 10:00 Atorvastatin Calcium 40 mg HS PO 12/11/24 22:00 12/11/24 20:59 40 MG Albuterol 2.5 mg Q6HPRN PRN NEB 12/11/24 19:30 Empaglifozin 10 mg DAILY PO 12/12/24 10:00 Furosemide 40 mg DAILY PO 12/12/24 10:00 Gabapentin 400 mg DAILY PO 12/11/24 22:00 12/12/24 01:24 400 MG Metoprolol Tartrate 50 mg BID PO 12/11/24 22:00 12/11/24 20:59 50 MG Spironolactone 25 mg DAILY PO 12/12/24 10:00 Diagnostic Test (Pha) 1 strip IQ4HR 12/11/24 20:00 12/12/24 00:00 1 STRIP Insulin Human Regular IQ4HR SC 12/11/24 20:00 12/12/24 00:00 4 UNITS Dextrose 50 ml UD PRN IV 12/11/24 19:30 Ondansetron HCl 4 mg Q4HP PRN IV 12/11/24 19:30 Acetaminophen 650 mg Q6HP PRN PO 12/11/24 19:30 12/11/24 21:07 650 MG Nitroglycerin 0.4 mg Q5MINP PRN SL 12/11/24 19:30 Morphine Sulfate 2 mg Q30M PRN IV 12/11/24 19:30 12/12/24 01:47 2 MG Aspirin 81 mg DAILY PO 12/12/24 10:00 Exam Vital Signs Vital Signs Date Time Temp Pulse Resp B/P (MAP) Pulse Ox O2 Delivery O2 Flow Rate FiO2 12/12/24 02:17 62 15 121/66 12/12/24 02:00 97 12/11/24 20:26 0.0 21 12/11/24 19:59 98.2 98.2 12/11/24 19:59 Room Air* Exam Gen: 48-year-old female in no apparent distress. Skin: Warm, dry, normal color and texture, no rash. HEENT: Normocephalic atraumatic, mucous membranes moist and pink. Neck: Cervical and supraclavicular nodes normal without enlargement, trachea is midline, thyroid gland is normal without masses. Pulmonary: Clear to auscultation and percussion bilaterally. Cardiac: Regular rate and rhythm. No murmur Abdomen: Soft, nontender, nondistended, bowel sounds present all 4 quadrants, no guarding, no rigidity, no organomegaly. Extremities: No cyanosis, clubbing, no edema Neuro: Cranial nerves II through XII grossly intact, normal affect and speech, no focal motor deficits. Labs/Xrays AGE / SEX: 48 / F ADM STATUS: ADM IN SERVICE [id number] ORDERING PHYSICIAN: MARTHA ESCALONA RESIDENT PROCEDURE(s): ECIDC - ECHO 2D MODE CARDIAC DOP REASON: Respiratory distress, acute on chronic heart failure, acute ORDER NUMBER(s): [id number], ACCESSION NUMBER(s): [id number] APPROVED REPORT EXAM: Two-dimensional and M-mode echocardiogram with Doppler and color Doppler. Blood Pressure: 144/59 mmHg INDICATION respiratory distress, acute on chronic RISK FACTORS Height: 5'1, Weight: 185 DIMENSIONS LVDd 5.1 (3.8-5.7cm) LA (2D) 4.0 (1.9-4.0cm) Aortic Root 3.2 (2.0- 3.7cm) LVDs 3.7 (2.5-4.0cm) LA (MM) (1.9-4.0cm) Aortic Cusp Exc 1.8 (1.5- 2.0cm) EF (%) 55.0 (55-70%) Rt. Atrium 2.7 (1.9-4.0cm) Asc. Aorta cm IVSd 0.7 (0.7-1.1cm) RV (D) (1.8-2.4cm) PWd 1.1 (0.7-1.1cm) Mitral Valve Mitral Mitral Stenosis E wave 1.35m/s MV Mean GR. mmHg A wave 1.33m/s MV Peak GR. 63mmHg E/A ratio 1.0 2D MVA cm2 DECEL Time 226ms PRESS 1/2 Time ms Aortic Valve Aortic Valve Aortic Stenosis V1 1.55m/s AO Mean GR. 8mmHg V2 1.85m/s AO Peak GR. 14mmHg LVOT Diameter 2.2 (1.8-2.4cm) Doppler KEITH 3.18cm2 Pulmonic Valve V2 1.17m/s Tricuspid Valve TR Velocity 2.19m/s RVSP 19mmHg Conclusion Mildly concentric left ventricular hypertrophy. Normal left ventricular size and dimension. Normal left ventricular systolic function estimated ejection fraction 60%. There is a grade 1 diastolic dysfunction. Normal right ventricular size and dimension. Normal right ventricular systolic function. Normal right ventricular systolic pressure at 19 mm of mercury Normal biatrial size and dimension. Normal aortic valve structure and function. Normal mitral valve structure and function. Normal tricuspid valve structure and function. The pulmonary valve is grossly normal. No pericardial effusion. ORDERING PHYSICIAN: TERRY ODOM MD PROCEDURE(s): CXRP - CHEST PORTABLE REASON: sob ORDER NUMBER(s): [id number], ACCESSION NUMBER(s): [id number] CHEST RADIOGRAPH Indication: sob Technique: Single frontal view of the chest was obtained COMPARISON: XY CHEST XRAY 1 VIEW on DOS: 10/23/24, XY CHEST XRAY 1 VIEW on DOS: 09/06/24, XY CHEST PORTABLE on DOS: 09/03/24, XY CHEST PORTABLE on DOS: 07/19/24, XY CHEST XRAY 1 VIEW on DOS: 04/02/24 FINDINGS: Lines and Tubes: None Lungs: Clear Pleura: No effusion. No pneumothorax. Cardiomediastinal contours: Unremarkable Bones: Unremarkable IMPRESSION: No acute disease. Labs Test 12/12/24 01:16 12/11/24 15:42 12/11/24 14:45 Range/Units POC Glucose 237 H 70-106 mg/dl Troponin I High Sensitivity 8 </=34 ng/L White Blood Count 8.8 4.4-10.8 10^3/uL Red Blood Count 3.87 L 4.0-5.20 10^6/uL Hemoglobin 11.2 L 12.2-16.2 g/dL Hematocrit 34.4 L 36.0-46.0 % Mean Corpuscular Volume 88.8 80.0-100.0 fL Mean Corpuscular Hemoglobin 29.0 28.0-32.0 pg Mean Corpuscular Hemoglobin Concent 32.6 32.0-36.0 g/dL Red Cell Distribution Width 14.6 H 11.8-14.3 % Platelet Count 477 H 140-450 10^3/uL Mean Platelet Volume 8.8 6.9-10.8 fL Neutrophils (%) (Auto) 64.4 37.0-80.0 % Lymphocytes (%) (Auto) 28.4 10.0-50.0 % Monocytes (%) (Auto) 5.1 0.0-12.0 % Eosinophils (%) (Auto) 1.7 0.0-7.0 % Basophils (%) (Auto) 0.4 0.0-2.0 % Neutrophils # (Auto) 5.7 1.6-8.6 10 ^3/uL Lymphocytes # (Auto) 2.5 0.4-5.4 10 ^3/uL Monocytes # (Auto) 0.4 0-1.3 10 ^3/uL Eosinophils # (Auto) 0.1 0-0.8 10 ^3/uL Basophils # (Auto) 0 0-0.2 10 ^3/uL Nucleated Red Blood Cells 0.1 % Sodium Level 132 L 136-145 mmol/L Potassium Level 4.8 3.5-5.1 mmol/L Chloride Level 103 98-107 mmol/L Carbon Dioxide Level 21 20-31 mmol/L Anion Gap 8 5-15 Blood Urea Nitrogen 40 H 9-23 mg/dL Creatinine 2.55 H 0.550-1.02 mg/dL Glomerular Filtration Rate Calc 23 >90 mL/min BUN/Creatinine Ratio 15.7 10.0-20.0 Serum Glucose 469 *H 74-106 mg/dL Calcium Level 9.6 8.7-10.4 mg/dL Assessment/Plan Assessment/Plan Assessment Unstable angina Uncontrolled diabetes mellitus Questionable like costochondritis Hypertension Plan Admit the patient to telemetry to the hospitalist Cardiology consultation Resume home medications Continue treatment per orders. Plan discussed with: Patient My Orders Orders - STACIE SHRESTHA AGACNP Procedure Category Date Status Time Basic Metabolic Panel LAB 12/12/24 Logged 04:00 Amlodipine Tablet PHA 12/12/24 In Process (Norvasc Tablet) 10:00 Atorvastatin (Lipitor) PHA 12/11/24 In Process 22:00 Albuterol Medneb PHA 12/11/24 In Process (Ventolin Medneb) 19:30 Empagliflozin PHA 12/12/24 In Process (Jardiance) 10:00 Furosemide Tablet PHA 12/12/24 In Process (Lasix Tablet) 10:00 Gabapentin Capsule PHA 12/11/24 In Process (Neurontin Capsule) 22:00 Metoprolol Tartrate PHA 12/11/24 In Process Tablet (Lopressor Ta 22:00 Spironolactone PHA 12/12/24 In Process (Aldactone) 10:00 Glucose Blood PHA 12/11/24 In Process (Accu-Chek Comfort 20:00 Insulin R (Human) PHA 12/11/24 In Process (Insulin R) 20:00 Dextrose 50% Syringe PHA 12/11/24 In Process 19:30 Admit ADMIT 12/11/24 Transmitted 19:30 Ondansetron Hcl PHA 12/11/24 In Process (Zofran) 19:30 Complete Blood Count LAB 12/12/24 Logged 04:00 Cardiac DIET 12/12/24 Transmitted Diet-2gna,Lofat,Lochol Breakfast Condition: Stable VELMA 12/11/24 In Process 19:30 Acetaminophen Tablet PHA 12/11/24 In Process (Tylenol Tablet) 19:30 Bedrest With Bathroom VELMA 12/11/24 In Process Privileg 19:30 Nitroglycerin PHA 12/11/24 In Process Sublingual (Ntrostat 19:30 Morphine Sulfate PHA 12/11/24 In Process Injection 19:30 Stat Ekg For Chest VELMA 12/11/24 In Process Pain 19:30 Notify Of Changes VELMA 12/11/24 In Process From Base 19:30 Linux Architect For VELMA 12/11/24 In Process 24 Hours 19:30 Emergency Dysrhythmia VELMA 12/11/24 In Process Protocol 19:30 Rhythm Strips Once VELMA 12/11/24 In Process Every Shift 19:30 Oxygen By Nasal RT 12/11/24 Transmitted Cannula 19:30 Aspirin Tablet PHA 12/12/24 In Process 10:00 Date of Service: Dec 11, 2024 Billing Provider: STACIE SHRESTHA Common Visit Codes: [id number] INP/OBS CARE (MOD) STACIE SHRESTHA Dec 12, 2024 04:17
[2024-12-12] MEDS: ALBUTEROL SULF 2.5 MG/0.5ML(0.5%) NEB SOLN NEB PRN (04:19)
[2024-12-12 04:21] LABS: Urine Bacteria None Seen /hpf (None Seen)
[2024-12-12 04:52] LABS: Urine Blood Negative /uL (Negative); Urine Clarity Clear (Clear); Urine Color Light-Yellow (Yellow); Urine Hyaline Cast FEW /lpf (0 - 2); Urine Mucus FEW (None Seen); Urine Protein, UAD 3+ (Negative); Urine Specific Gravity 1.015 (1.001-1.035); Urine Squamous Epithelial Cell FEW /hpf (<5); Urine Urobilinogen Normal (Negative); Urine WBC 8 /HPF (0-5); Urine pH 7.5 (5.0-9.0)
[2024-12-12 05:15] LABS: Basophils # (auto) 0 10 ^3/uL (0-0.2); Basophils % (auto) 0.5 % (0.0-2.0); Eosinophils # (auto) 0.2 10 ^3/uL (0-0.8); Eosinophils % (auto) 2.1 % (0.0-7.0); Hematocrit 31.8 % (36.0-46.0); Hemoglobin 10.5 g/dL (12.2-16.2); Lymphocytes # (auto) 3.8 10 ^3/uL (0.4-5.4); Lymphocytes % (auto) 40.5 % (10.0-50.0); Mean Corpuscular Hemoglobin 29.3 pg (28.0-32.0); Mean Corpuscular Volume 88.6 fL (80.0-100.0); Monocytes # (auto) 0.6 10 ^3/uL (0-1.3); Monocytes % (auto) 6.5 % (0.0-12.0); Neutrophils # (auto) 4.8 10 ^3/uL (1.6-8.6); Neutrophils % (auto) 50.4 % (37.0-80.0); Platelet Count (auto) 437 10^3/uL (140-450); Red Blood Cells 3.58 10^6/uL (4.0-5.20); Red Cell Distribution Width 14.3 % (11.8-14.3); White Blood Cell 9.4 10^3/uL (4.4-10.8)
[2024-12-12 05:40] LABS: Chloride 105 mmol/L (98-107); Potassium 4.7 mmol/L (3.5-5.1)
[2024-12-12 05:41] LABS: Anion Gap 8 (5-15); Calcium 9.4 mg/dL (8.7-10.4); Carbon Dioxide 22 mmol/L (20-31)
[2024-12-12 05:46] LABS: BUN/Creatinine Ratio 15.6 (10.0-20.0)
[2024-12-12 05:48] LABS: Blood Urea Nitrogen 42 mg/dL (9-23); Glucose 174 mg/dL (74-106); Sodium 135 mmol/L (136-145)
[2024-12-12 05:59] LABS: LDL Cholesterol 77 mg/dL (< 100)
[2024-12-12 06:00] LABS: Cholesterol 163 mg/dL (< 200)
[2024-12-12 06:09] LABS: HDL Cholesterol 38 mg/dL (40-59); Triglycerides 339 mg/dL (< 150)
[2024-12-12] MEDS: ASPirin 81 mg TAB PO SCH (10:26)
[2024-12-12] MEDS: amLODIPine BESYLATE 5 MG TAB PO SCH (10:27)
[2024-12-12] MEDS: FUROSEMIDE 40 MG TAB PO SCH (10:27)
[2024-12-12] MEDS: SPIRONOLACTONE 25 MG TAB PO SCH (10:28)
[2024-12-12] MEDS: EMPAGLIFLOZIN 10 MG TAB PO SCH (10:28)
--- NOTE | 2024-12-12 13:38 | DVHPN2 ---
Reviewed: Care Plan, H&P, Labs, Medications, Previous Orders, Radiology Changes from previous H/P or p: No Changes Objective Vitals Vital Signs Date Time Temp Pulse Resp B/P (MAP) Pulse Ox O2 Delivery O2 Flow Rate FiO2 12/12/24 12:00 64 136/64 12/12/24 09:00 15 95 12/12/24 08:30 Room Air* 0 21 12/12/24 05:58 98.2 98.2 Medications Current Medications Medications Dose Ordered Sig/Mariel Route Start Time Stop Time Status Last Admin Dose Admin Amlodipine Besylate 10 mg DAILY PO 12/12/24 10:00 12/12/24 10:27 10 MG Atorvastatin Calcium 40 mg HS PO 12/11/24 22:00 12/11/24 20:59 40 MG Empaglifozin 10 mg DAILY PO 12/12/24 10:00 12/12/24 10:28 10 MG Furosemide 40 mg DAILY PO 12/12/24 10:00 12/12/24 10:27 40 MG Gabapentin 400 mg DAILY PO 12/11/24 22:00 12/12/24 10:26 400 MG Metoprolol Tartrate 50 mg BID PO 12/11/24 22:00 12/12/24 10:28 50 MG Spironolactone 25 mg DAILY PO 12/12/24 10:00 12/12/24 10:28 25 MG Diagnostic Test (Pha) 1 strip IQ4HR 12/11/24 20:00 12/12/24 12:00 1 STRIP Insulin Human Regular IQ4HR SC 12/11/24 20:00 12/12/24 12:35 4 UNITS Dextrose 50 ml UD PRN IV 12/11/24 19:30 Ondansetron HCl 4 mg Q4HP PRN IV 12/11/24 19:30 Acetaminophen 650 mg Q6HP PRN PO 12/11/24 19:30 12/11/24 21:07 650 MG Nitroglycerin 0.4 mg Q5MINP PRN SL 12/11/24 19:30 Morphine Sulfate 2 mg Q30M PRN IV 12/11/24 19:30 12/12/24 01:47 2 MG Aspirin 81 mg DAILY PO 12/12/24 10:00 12/12/24 10:26 81 MG Laboratory Results Laboratory Tests 12/12/24 04:44 Chemistry Test 12/11/24 14:45 3/19/25 04:44 Calcium Level 9.6 mg/dL (8.7-10.4) 9.4 mg/dL (8.7-10.4) Lipid panel Test 12/12/24 04:44 Cholesterol Level 163 mg/dL (< 200) HDL Cholesterol 38 mg/dL (40-59) L Triglycerides Level 339 mg/dL (< 150) H HgA1c, TSH Test 12/12/24 04:44 Hemoglobin A1c 11.3 % A1C (<5.7) H Thyroid Stimulating Hormone (TSH) 5.28 uIU/mL (0.55-4.78) H Urinalysis Test 12/12/24 04:14 Urine Color Light-yellow (Yellow) Urine Clarity Clear (Clear) Urine pH 7.5 (5.0-9.0) Urine Specific [place] 1.015 (1.001-1.035) Urine Protein 3+ (Negative) H Urine Ketones Negative (Negative) Urine Blood Negative /uL (Negative) Urine Nitrite Negative (Negative) Urine Bilirubin Negative (Negative) Urine Urobilinogen Normal mg/dL (Negative) Urine Leukocyte Esterase Negative /uL (Negative) Urine RBC 2 /hpf (0 - 4) Urine Microscopic WBC 8 /HPF (0-5) H Urine Squamous Epithelial Cells Few /hpf (<5) Urine Bacteria None seen /hpf (None Seen) Urine Hyaline Casts Few /lpf (0 - 2) Urine Mucus Few (None Seen) Urine Glucose 3+ mg/dL (Normal) H Labs and/or images reviewed: Labs reviewed by me, Image(s) reviewed by me Assessment/Plan Assessment/Plan Noncardiac chest pain, musculoskeletal in nature : Cardiology consult appreciated. Insulin-dependent diabetes mellitus Dyslipidemia Likely ERIK on CKD stage IIIB Nicotine dependence Obesity Plan discussed with: Patient Date of Service: Dec 12, 2024 Billing Provider: AZIZA GARCIA MD Common Visit Codes: [id number] INP/OBS CARE(HIGH) Secondary Visit Codes: [id number] CARE PLAN 30 MINUTES AZIZA GARCIA MD Dec 12, 2024 13:38
[2024-12-13] VITALS (8 sets, daily range): BP systolic 120–142; BP diastolic 53–66; PULSE 62–79; RESP 15–18; TEMP 97.4–98.9; O2SAT 91–98
[2024-12-13] MEDS: HYDROcodone-ACET 5/325MG TAB PO PRN (01:42)
--- NOTE | 2024-12-13 09:44 | DVHPN2 ---
Reviewed: Care Plan, H&P, Labs, Medications, Previous Orders, Radiology Changes from previous H/P or p: No Changes Objective Vitals Vital Signs Date Time Temp Pulse Resp B/P (MAP) Pulse Ox O2 Delivery O2 Flow Rate FiO2 12/13/24 09:08 62 127/66 12/13/24 05:00 98.2 18 98 98.2 12/12/24 20:00 Room Air* 0 21 Intake/Output Intake and Output 12/13/24 07:00 Intake Total 650 ml Balance 650 ml Intake Oral 650 ml # Voids 3 Medications Current Medications Medications Dose Ordered Sig/Mariel Route Start Time Stop Time Status Last Admin Dose Admin Amlodipine Besylate 10 mg DAILY PO 12/12/24 10:00 12/13/24 09:07 10 MG Atorvastatin Calcium 40 mg HS PO 12/11/24 22:00 12/12/24 21:47 40 MG Empaglifozin 10 mg DAILY PO 12/12/24 10:00 12/13/24 09:08 10 MG Furosemide 40 mg DAILY PO 12/12/24 10:00 12/13/24 09:08 40 MG Gabapentin 400 mg DAILY PO 12/11/24 22:00 12/13/24 09:07 400 MG Metoprolol Tartrate 50 mg BID PO 12/11/24 22:00 12/13/24 09:08 50 MG Spironolactone 25 mg DAILY PO 12/12/24 10:00 12/13/24 09:07 25 MG Diagnostic Test (Pha) 1 strip IQ4HR 12/11/24 20:00 12/13/24 09:09 1 STRIP Insulin Human Regular IQ4HR SC 12/11/24 20:00 12/13/24 04:31 4 UNITS Dextrose 50 ml UD PRN IV 12/11/24 19:30 Ondansetron HCl 4 mg Q4HP PRN IV 12/11/24 19:30 Acetaminophen 650 mg Q6HP PRN PO 12/11/24 19:30 12/13/24 06:13 650 MG Nitroglycerin 0.4 mg Q5MINP PRN SL 12/11/24 19:30 Morphine Sulfate 2 mg Q30M PRN IV 12/11/24 19:30 12/12/24 13:58 2 MG Aspirin 81 mg DAILY PO 12/12/24 10:00 12/13/24 09:08 81 MG Acetaminophen/ Hydrocodone Bitart 1 tab Q8HPRN PRN PO 12/13/24 01:30 12/13/24 01:42 1 TAB Laboratory Results Laboratory Tests 12/12/24 04:44 Urinalysis Test 12/12/24 04:14 Urine Color Light-yellow (Yellow) Urine Clarity Clear (Clear) Urine pH 7.5 (5.0-9.0) Urine Specific [place] 1.015 (1.001-1.035) Urine Protein 3+ (Negative) H Urine Ketones Negative (Negative) Urine Blood Negative /uL (Negative) Urine Nitrite Negative (Negative) Urine Bilirubin Negative (Negative) Urine Urobilinogen Normal mg/dL (Negative) Urine Leukocyte Esterase Negative /uL (Negative) Urine RBC 2 /hpf (0 - 4) Urine Microscopic WBC 8 /HPF (0-5) H Urine Squamous Epithelial Cells Few /hpf (<5) Urine Bacteria None seen /hpf (None Seen) Urine Hyaline Casts Few /lpf (0 - 2) Urine Mucus Few (None Seen) Urine Glucose 3+ mg/dL (Normal) H Labs and/or images reviewed: Labs reviewed by me, Image(s) reviewed by me Assessment/Plan Assessment/Plan Noncardiac chest pain, musculoskeletal in nature : Michie 10 q.4 hours, Cardiology consult appreciated. Per Cardiology, not a candidate for heart catheterization secondary to acute kidney injury Insulin-dependent diabetes mellitus insulin sliding scale Dyslipidemia ERIK on CKD 3 Nicotine dependence Obesity Left shoulder pain: CT left shoulder Plan discussed with: Patient My Orders Orders - AZIZA GARCIA MD Procedure Category Date Status Time Hepatitis B Surface LAB 12/12/24 In Process Antigen 15:21 Hepatitis C Antibody LAB 12/12/24 In Process 15:21 Date of Service: Dec 13, 2024 Billing Provider: AZIZA GARCIA MD Common Visit Codes: [id number] INP/OBS CARE(HIGH) AZIZA GARCIA MD Dec 13, 2024 09:44
[2024-12-13 10:25] LABS: Hepatitis B Surface Antigen Negative (Negative); Hepatitis C Antibody Negative (Negative)
[2024-12-13] MEDS ORDERED: HYDROcodone-ACET 10/325MG TAB PO PRN (10:30)
[2024-12-13] MEDS: HYDROcodone-ACET 10/325MG TAB PO PRN (11:18)
--- NOTE | 2024-12-13 11:23 | DVH ---
CLINICAL INDICATION: 48 years old, Female; Left shoulder pain. TECHNIQUE: Noncontrast CT of the left shoulder was performed. Sagittal and coronal reformatted images are provided. COMPARISON: None CT Dose: CTDI volume is 23.4 mGy. Dose-length product is 512.3 mGy*cm FINDINGS: No fracture or dislocation. The glenohumeral joint space is maintained. No significant joint effusion . No malalignment. Acromioclavicular joint space is preserved. There is some mild cortical irregula rity / lucency within the left 3rd rib which could be artifactual. Hazy opacities in the left lung. IMPRESSION: 1. No acute osseous abnormality in the left shoulder. 2. Mild hazy opacities in the left lung. All CT scans at this medical facility are performed using dose modulation techniques as appropriate t o a performed exam including the following: Automated exposure control was utilized; adjustment of th e MA and/or KV according to patient size; and use of iterative reconstruction technique.
--- NOTE | 2024-12-13 20:39 | DVHCONRES ---
Date Seen: Dec 13, 2024 Resident Creating Document: LEROY LYNCH RESIDENT Referring Physician Dr. Berman Reason for Consultation CKD stage III , ERIK History of Present Illness Ms. Weston, a 48-year-old female with past medical history significant for CKD stage 3, uncontrolled essential hypertension, diabetes mellitus, poor medical follow up, medical nonadherence, dyslipidemia, chronic smoking, grade 1 obesity, heart failure with preserved ejection fraction presented with left- sided chest pain which was found to be known cardiac likely musculoskeletal, was consulted Nephrology for ERIK. Past Medical History CKD stage 3, uncontrolled essential hypertension, diabetes mellitus, poor medical follow up, medical nonadherence, dyslipidemia, chronic smoking, grade 1 obesity, heart failure with preserved ejection fraction Past Surgical History Denies Family History: Alcoholism FHx: prostate cancer G8 FATHER Family history: Cardiovascular disease G8 MOTHER Family history: Diabetes mellitus G8 MOTHER Family history: Hypertension G8 MOTHER Gout G8 FATHER Heart attack G8 MOTHER Stroke G8 MOTHER Tuberculosis G8 FATHER Social History Lives at home, longest period of life did not follow up with PCP/healthcare workers, diabetes not well controlled, skips a often home dose insulin, 500-600 BG frequently noted in home check Active smoker more than 25 years, recently cut down less than 1 pack per year Heavy alcohol abuse Allergies: Coded Allergies: Codeine (Verified Allergy, Unknown, 03/20/19) Home Meds Active Scripts Albuterol Sulfate (VENTOLIN MDI) 90 Mcg Ih, 90 MCG IN TID for 5 Days, #1 INH Prov:PARISH JENSEN RESIDENT 10/26/24 Guaifenesin (Guaifenesin) 100 Mg/5 Ml Syp, 200 MG PO Q6HP PRN for 5 Days, #1 UNIT Prov:PARISH JENSEN RESIDENT 10/26/24 Ferrous Sulfate (Ferrous Sulfate) 325 Mg Tab, 325 MG PO DAILY for 30 Days, #30 TAB 2 Refills Prov:ANDREA JOSHUA RESIDENT 04/07/24 Reported Medications Insulin Lispro (Insulin Lispro Kwikpen) 100 Unit/Ml Inj, UNIT SC TID for 42 Days, #15 INJECT SUBCUTANEOUSLY 3 TIMES DAILY BEFORE MEAL(S) PER SLIDING SCALE DIRECTED. MAX 36 UNITS/DAY. 10/24/24 Spironolactone (Spironolactone) 25 Mg Tab, 1 TAB PO DAILY for 30 Days, #30 09/04/24 Amlodipine Besylate (Amlodipine Besylate) 10 Mg Tab, 1 TAB PO DAILY for 90 Days, #90 09/04/24 Pantoprazole Sodium Sesquihydr (Protonix) 40 Mg Tab, 1 TAB PO DAILY for 90 Days, #90 09/04/24 Metoprolol Tartrate (Metoprolol Tartrate) 50 Mg Tab, 1 TAB PO BID for 60 Days, #120 09/04/24 Metoclopramide Hcl (Metoclopramide Hcl) 5 Mg Tab, 1 TAB PO TID for 90 Days, #270 09/04/24 Insulin Glargine (Insulin Glargine) 100 Unit/Ml Marly, 46 UNIT SC QPM for 32 Days, #15 09/04/24 Gabapentin (Gabapentin) 100 Mg Cap, 400 MG PO BID for 90 Days, #180 09/04/24 Furosemide (Furosemide) 40 Mg Tab, 1 TAB PO DAILY for 90 Days, #90 09/04/24 Empagliflozin (Jardiance) 10 Mg Tab, 1 TAB PO DAILY for 90 Days, #90 09/04/24 Atorvastatin Calcium (Lipitor) 40 Mg Tab, 1 TAB PO DAILY for 90 Days, #90 09/04/24 Aspirin (Aspirin Low Dose) 81 Mg Chw, 1 TAB PO DAILY for 90 Days, #90 09/04/24 Current Medications Current Medications Medications (Trade) Dose Ordered Sig/Mariel Route PRN Reason Start Time Stop Time Status Last Admin Acetaminophen/ Hydrocodone Bitart ([place] 5/325MG Tab) 1 tab Q8HPRN PRN PO MODERATE PAIN (4-6 PAIN SCALE) 12/13/24 01:30 12/13/24 01:42 Acetaminophen/ Hydrocodone Bitart ([place] 10/325MG Tab) 1 tab Q4HP PRN PO MODERATE PAIN (4-6 PAIN SCALE) 12/13/24 10:30 12/13/24 10:43 DC Acetaminophen/ Hydrocodone Bitart ([place] 10/325MG Tab) 1 tab Q4HP PRN PO SEVERE PAIN (7-10 PAIN SCALE) 12/13/24 10:45 12/13/24 11:18 Review of Systems general: malaise, Tiredness, HEENT:Normal, CVS: chest pain, RESPIRATORY:Normal, GI:Normal, :Normal, MSK:Normal, NEURO:Normal Vital Signs Vital Signs Date Time Temp Pulse Resp B/P (MAP) Pulse Ox O2 Delivery O2 Flow Rate FiO2 12/13/24 17:00 97.5 67 17 131/65 (87) 94 97.5 12/13/24 07:30 Room Air* 0 21 Physical Exam GENERAL:Normal, HEENT:Normal, NECK:Normal, LUNGS: Clear, breathing in room air comfortably, CVS: Left chest tenderness, ABDOMEN:Normal, MSK: Trace pedal edema nonpitting, SKIN:Normal, NEURO:Normal, :Normal Labs/Diagnostic Data Labs Test 12/13/24 16:24 12/12/24 04:44 12/12/24 04:14 12/11/24 15:42 Range/Units POC Glucose 312 H 70-106 mg/dl White Blood Count 9.4 4.4-10.8 10^3/uL Red Blood Count 3.58 L 4.0-5.20 10^6/uL Hemoglobin 10.5 L 12.2-16.2 g/dL Hematocrit 31.8 L 36.0-46.0 % Mean Corpuscular Volume 88.6 80.0-100.0 fL Mean Corpuscular Hemoglobin 29.3 28.0-32.0 pg Mean Corpuscular Hemoglobin Concent 33.0 32.0-36.0 g/dL Red Cell Distribution Width 14.3 11.8-14.3 % Platelet Count 437 140-450 10^3/uL Mean Platelet Volume 8.7 6.9-10.8 fL Neutrophils (%) (Auto) 50.4 37.0-80.0 % Lymphocytes (%) (Auto) 40.5 10.0-50.0 % Monocytes (%) (Auto) 6.5 0.0-12.0 % Eosinophils (%) (Auto) 2.1 0.0-7.0 % Basophils (%) (Auto) 0.5 0.0-2.0 % Neutrophils # (Auto) 4.8 1.6-8.6 10 ^3/uL Lymphocytes # (Auto) 3.8 0.4-5.4 10 ^3/uL Monocytes # (Auto) 0.6 0-1.3 10 ^3/uL Eosinophils # (Auto) 0.2 0-0.8 10 ^3/uL Basophils # (Auto) 0 0-0.2 10 ^3/uL Nucleated Red Blood Cells 0.0 % Sodium Level 135 L 136-145 mmol/L Potassium Level 4.7 3.5-5.1 mmol/L Chloride Level 105 98-107 mmol/L Carbon Dioxide Level 22 20-31 mmol/L Anion Gap 8 5-15 Blood Urea Nitrogen 42 H 9-23 mg/dL Creatinine 2.70 H 0.550-1.02 mg/dL Glomerular Filtration Rate Calc 21 >90 mL/min BUN/Creatinine Ratio 15.6 10.0-20.0 Serum Glucose 174 H 74-106 mg/dL Hemoglobin A1c 11.3 H <5.7 % A1C Calcium Level 9.4 8.7-10.4 mg/dL Triglycerides Level 339 H < 150 mg/dL Cholesterol Level 163 < 200 mg/dL LDL Cholesterol 77 < 100 mg/dL HDL Cholesterol 38 L 40-59 mg/dL Thyroid Stimulating Hormone (TSH) 5.28 H 0.55-4.78 uIU/mL Hepatitis B Surface Antigen Negative Negative Hepatitis C Antibody Negative Negative Urine Color Light-yellow Yellow Urine Clarity Clear Clear Urine pH 7.5 5.0-9.0 Urine Specific [place] 1.015 1.001-1.035 Urine Protein 3+ H Negative Urine Ketones Negative Negative Urine Blood Negative Negative /uL Urine Nitrite Negative Negative Urine Bilirubin Negative Negative Urine Urobilinogen Normal Negative mg/dL Urine Leukocyte Esterase Negative Negative /uL Urine RBC 2 0 - 4 /hpf Urine Microscopic WBC 8 H 0-5 /HPF Urine Squamous Epithelial Cells Few <5 /hpf Urine Bacteria None seen None Seen /hpf Urine Hyaline Casts Few 0 - 2 /lpf Urine Mucus Few None Seen Urine Glucose 3+ H Normal mg/dL Troponin I High Sensitivity 8 </=34 ng/L Assessment ERIK due to VMN on CKD, workup pending. #CKD stage IIIB at baseline does not have established care with Nephrology #uncontrolled essential hypertension #Anemia of chronic disease #Insulin-dependent diabetes mellitus , uncontrolled HbA1c of 11.3 #Noncardiac chest pain, musculoskeletal in nature Reproducible #Dyslipidemia on home statin #Nicotine dependence, active smoker #Chronic marijuana abuse #chronic alcohol abuse #Obesity grade 1 #HFpEF, hypertensive heart disease grade 1 diastolic dysfunction #Mild leg swelling, likely common side effect of home amlodipine #medical nonadherence #reactive thrombocytosis, improved Plan/Recommendation Findings: # BUN: 40, 42 # GFR: 23> 21 # Creatinine: 2.55, 2.70 ( baseline around 1.9) # I&O: Not well documented, as per patient no change in urine volume or color # Fluid status: Euvolemic, mild trace nonpitting pedal edema likely medication side effect. # Diet: Cardiac diet and salt restriction # Urinalysis: Unremarkable Plan: # Lasix IV 40 mg daily for now, we will readjust diuresis based on further results # Given ERIK we will hold home spironolactone, Jardiance and Lasix oral. # Strict I&O and check Daily weight, Avoid Nephrotoxics Avoid hyper/hypo tension , cardiac diet and 2 g salt restriction # As per aha / ACC guidelines for diabetic hypertensive ideal blood pressure 130/80 or below # Continue supportive care, Daily BMP, BNP, follow up the renal ultrasound and Urine electrolytes workup. # Advised to establish care with outpatient CKD Clinic at discharge # Rest of the management as per primary team/ Cardiology. Thank you for the opportunity to follow up on your patient. In case of any question feel free to reach out to the Nephrology team. We will follow up. Discussed with Nephrology attending Dr. Wood. Addendum Patient seen and examined, plan discussed with resident. Agree with above, we will follow closely Plan discussed with: Patient, Other (RN, primary team. ) LEROY LYNCH Dec 13, 2024 20:39 ALIZA WOOD MD Dec 13, 2024 21:40
--- NOTE | 2024-12-13 21:39 | DVH ---
INDICATION: ERIK TECHNIQUE: Multiple real-time sonographic images of the kidneys and bladder were obtained. COMPARISON: US KIDNEY on DOS: 07/20/24, US KIDNEY on DOS: 04/05/24, US KIDNEY on DOS: 08/09/23, KIDNEY on DOS: 02/06/22 FINDINGS: Right kidney measures 11.7 cm in length and the left 12.4 cm. Both kidneys are within normal limits i n size, echogenicity, and cortical thickness. No hydronephrosis. No evidence of mass or calculus. Urinary bladder is incompletely distended with a prevoid volume of 104 mL with no abnormality noted. IMPRESSION: No abnormality identified.
[2024-12-14] VITALS (7 sets, daily range): BP systolic 120–133; BP diastolic 56–70; PULSE 69–71; RESP 16–18; TEMP 97.8–97.9; O2SAT 95–97
[2024-12-14 01:29] LABS: Protein, Urine 202.2 mg/dL (1-14)
[2024-12-14 01:31] LABS: Amphetamine Screen, Urine Neg (NEGATIVE); Creatinine, Urine 34.97 mg/dL (30.0-125.0); Opiate Scree,Urine Neg (NEGATIVE)
[2024-12-14 01:32] LABS: Barbiturate Scree,Urine Neg (NEGATIVE); Phencyclidine Screen, Urine Neg (NEGATIVE)
[2024-12-14 01:33] LABS: Benzodiazephine Screen, Urine Neg (NEGATIVE); Cannabinoid Screen, Urine Neg (NEGATIVE); Cocaine Screen, Urine Neg (NEGATIVE)
[2024-12-14] MEDS: FUROSEMIDE 40 MG/4 ML VIAL IV SCH (09:23)
[2024-12-14] MEDS ORDERED: HYDR-4798 PO (10:00)
--- NOTE | 2024-12-14 10:02 | DVHPN2 ---
Reviewed: Care Plan, H&P, Labs, Medications, Previous Orders, Radiology Changes from previous H/P or p: No Changes Objective Vitals Vital Signs Date Time Temp Pulse Resp B/P (MAP) Pulse Ox O2 Delivery O2 Flow Rate FiO2 12/14/24 09:23 120/56 12/14/24 09:22 69 12/14/24 08:30 16 95 Room Air* 0 21 12/14/24 05:00 97.8 97.8 Intake/Output Intake and Output 12/14/24 07:00 Intake Total 970 ml Balance 970 ml Intake Oral 970 ml # Voids 8 Medications Current Medications Medications Dose Ordered Sig/Mariel Route Start Time Stop Time Status Last Admin Dose Admin Amlodipine Besylate 10 mg DAILY PO 12/12/24 10:00 12/14/24 09:21 10 MG Atorvastatin Calcium 40 mg HS PO 12/11/24 22:00 12/13/24 21:12 40 MG Gabapentin 400 mg DAILY PO 12/11/24 22:00 12/14/24 09:23 400 MG Metoprolol Tartrate 50 mg BID PO 12/11/24 22:00 12/14/24 09:22 50 MG Diagnostic Test (Pha) 1 strip IQ4HR 12/11/24 20:00 12/14/24 08:55 1 STRIP Insulin Human Regular IQ4HR SC 12/11/24 20:00 12/14/24 09:29 6 UNITS Dextrose 50 ml UD PRN IV 12/11/24 19:30 Ondansetron HCl 4 mg Q4HP PRN IV 12/11/24 19:30 Acetaminophen 650 mg Q6HP PRN PO 12/11/24 19:30 12/13/24 06:13 650 MG Nitroglycerin 0.4 mg Q5MINP PRN SL 12/11/24 19:30 Morphine Sulfate 2 mg Q30M PRN IV 12/11/24 19:30 12/12/24 13:58 2 MG Aspirin 81 mg DAILY PO 12/12/24 10:00 12/14/24 09:22 81 MG Acetaminophen/ Hydrocodone Bitart 1 tab Q8HPRN PRN PO 12/13/24 01:30 12/13/24 01:42 1 TAB Acetaminophen/ Hydrocodone Bitart 1 tab Q4HP PRN PO 12/13/24 10:45 12/14/24 09:22 1 TAB Furosemide 40 mg DAILY IV 12/14/24 10:00 12/14/24 09:23 40 MG Laboratory Results Laboratory Tests 12/12/24 04:44 Cardiac Markers Test 12/13/24 21:30 B-Type Natriuretic Peptide 15.87 pg/mL (0-100) Urinalysis Test 12/12/24 04:14 12/13/24 23:55 Urine Color Light-yellow (Yellow) Urine Clarity Clear (Clear) Urine pH 7.5 (5.0-9.0) Urine Specific [place] 1.015 (1.001-1.035) Urine Protein 3+ (Negative) H Urine Ketones Negative (Negative) Urine Blood Negative /uL (Negative) Urine Nitrite Negative (Negative) Urine Bilirubin Negative (Negative) Urine Urobilinogen Normal mg/dL (Negative) Urine Leukocyte Esterase Negative /uL (Negative) Urine RBC 2 /hpf (0 - 4) Urine Microscopic WBC 8 /HPF (0-5) H Urine Squamous Epithelial Cells Few /hpf (<5) Urine Bacteria None seen /hpf (None Seen) Urine Hyaline Casts Few /lpf (0 - 2) Urine Mucus Few (None Seen) Urine Glucose 3+ mg/dL (Normal) H Urine Osmolality 304 mOsm/kg Urine Creatinine 34.97 mg/dL (30.0-125.0) Urine Sodium 26 mmol/L (40-220) L Urine Potassium 21 mmol/L (12-62) Urine Total Protein 202.2 mg/dL (1-14) H Labs and/or images reviewed: Labs reviewed by me, Image(s) reviewed by me Assessment/Plan Assessment/Plan Noncardiac chest pain, musculoskeletal in nature : [place] 10 q.4 hours, Cardiology consult appreciated. Per Cardiology, not a candidate for heart catheterization secondary to acute kidney injury Insulin-dependent diabetes mellitus insulin sliding scale Dyslipidemia ERIK on CKD 3 Nicotine dependence Obesity Left shoulder pain: CT left shoulder negative for any acute pathology Patient agreeable with the discharge plan REKHA Deshpande at bedside Plan discussed with: Patient My Orders Orders - AZIZA GARCIA MD Procedure Category Date Status Time Hydrocodone-Acet PHA 12/13/24 In Process 10/325mg Tab ([place] 10:45 Date of Service: Dec 14, 2024 Billing Provider: AZIZA GARCIA MD Common Visit Codes: [id number] INP/OBS CARE(HIGH) AZIZA GARCIA MD Dec 14, 2024 10:02
--- NOTE | 2024-12-14 10:06 | DVHDS2 ---
Discharge Summary Date of Admission Dec 11, 2024 at 19:30 Date of Discharge: Dec 14, 2024 Admitting Diagnosis Chest pain Wounds: None Labs/Diagnostic Data: Laboratory Results Test 12/14/24 08:54 12/13/24 23:55 12/13/24 21:30 12/12/24 04:44 POC Glucose 272 mg/dl (70-106) Urine Osmolality 304 mOsm/kg Urine Creatinine 34.97 mg/dL (30.0-125.0) Urine Sodium 26 mmol/L (40-220) Urine Potassium 21 mmol/L (12-62) Urine Total Protein 202.2 mg/dL (1-14) Urine Opiates Screen Neg (NEGATIVE) Urine Fentanyl Screen Neg (NEGATIVE) Urine Barbiturates Screen Neg (NEGATIVE) Urine Phencyclidine Screen Neg (NEGATIVE) Urine Amphetamines Screen Neg (NEGATIVE) Urine Benzodiazepines Screen Neg (NEGATIVE) Urine Cocaine Screen Neg (NEGATIVE) Urine Cannabinoids Screen Neg (NEGATIVE) B-Type Natriuretic Peptide 15.87 pg/mL (0-100) White Blood Count 9.4 10^3/uL (4.4-10.8) Red Blood Count 3.58 10^6/uL (4.0-5.20) Hemoglobin 10.5 g/dL (12.2-16.2) Hematocrit 31.8 % (36.0-46.0) Mean Corpuscular Volume 88.6 fL (80.0-100.0) Mean Corpuscular Hemoglobin 29.3 pg (28.0-32.0) Mean Corpuscular Hemoglobin Concent 33.0 g/dL (32.0-36.0) Red Cell Distribution Width 14.3 % (11.8-14.3) Platelet Count 437 10^3/uL (140-450) Mean Platelet Volume 8.7 fL (6.9-10.8) Neutrophils (%) (Auto) 50.4 % (37.0-80.0) Lymphocytes (%) (Auto) 40.5 % (10.0-50.0) Monocytes (%) (Auto) 6.5 % (0.0-12.0) Eosinophils (%) (Auto) 2.1 % (0.0-7.0) Basophils (%) (Auto) 0.5 % (0.0-2.0) Neutrophils # (Auto) 4.8 10 ^3/uL (1.6-8.6) Lymphocytes # (Auto) 3.8 10 ^3/uL (0.4-5.4) Monocytes # (Auto) 0.6 10 ^3/uL (0-1.3) Eosinophils # (Auto) 0.2 10 ^3/uL (0-0.8) Basophils # (Auto) 0 10 ^3/uL (0-0.2) Nucleated Red Blood Cells 0.0 % Sodium Level 135 mmol/L (136-145) Potassium Level 4.7 mmol/L (3.5-5.1) Chloride Level 105 mmol/L (98-107) Carbon Dioxide Level 22 mmol/L (20-31) Anion Gap 8 (5-15) Blood Urea Nitrogen 42 mg/dL (9-23) Creatinine 2.70 mg/dL (0.550-1.02) Glomerular Filtration Rate Calc 21 mL/min (>90) BUN/Creatinine Ratio 15.6 (10.0-20.0) Serum Glucose 174 mg/dL (74-106) Hemoglobin A1c 11.3 % A1C (<5.7) Calcium Level 9.4 mg/dL (8.7-10.4) Triglycerides Level 339 mg/dL (< 150) Cholesterol Level 163 mg/dL (< 200) LDL Cholesterol 77 mg/dL (< 100) HDL Cholesterol 38 mg/dL (40-59) Thyroid Stimulating Hormone (TSH) 5.28 uIU/mL (0.55-4.78) Hepatitis B Surface Antigen Negative (Negative) Hepatitis C Antibody Negative (Negative) Test 12/12/24 04:14 12/11/24 15:42 Urine Color Light-yellow (Yellow) Urine Clarity Clear (Clear) Urine pH 7.5 (5.0-9.0) Urine Specific [place] 1.015 (1.001-1.035) Urine Protein 3+ (Negative) Urine Ketones Negative (Negative) Urine Blood Negative /uL (Negative) Urine Nitrite Negative (Negative) Urine Bilirubin Negative (Negative) Urine Urobilinogen Normal mg/dL (Negative) Urine Leukocyte Esterase Negative /uL (Negative) Urine RBC 2 /hpf (0 - 4) Urine Microscopic WBC 8 /HPF (0-5) Urine Squamous Epithelial Cells Few /hpf (<5) Urine Bacteria None seen /hpf (None Seen) Urine Hyaline Casts Few /lpf (0 - 2) Urine Mucus Few (None Seen) Urine Glucose 3+ mg/dL (Normal) Troponin I High Sensitivity 8 ng/L (</=34) Other Laboratory Tests 12/12/24 04:44 Brief Hx & Hospital Course: 48-year-old female with a history of hypertension diabetes hypercholesterolemia nicotine dependence obesity came in for chest pain. Troponin negative x3 cardiology consult appreciated cardiology felt the patient has noncardiac chest pain and does not need further cardiac workup patient complains of left shoulder pain CT left shoulder was negative for any acute pathology treated with Ashley for the pain and being discharged home reviewed all her home medications she will continue all her home medications follow up with primary Dr Aldrich Consults/Reason for consult Cardiology Operations or Procedures CT left shoulder Condition at Discharge: Fair Final Diagnosis/Problems List Noncardiac chest pain, musculoskeletal in nature : [place] 10 q.4 hours, Cardiology consult appreciated. 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 Patient was counseled about treatment plan, medications, possible side effects, patientverbalized understanding. All questions were answered to the best of my ability. This discharge took greater then 30 minutes in planning, reviewing documentation, counseling the patient, and discussing with other team members." ASSESSMENT ASSESSMENT Hospital Course Improved Assessment Noncardiac chest pain, musculoskeletal in nature : [place] 10 q.4 hours, Cardiology consult appreciated. Per Cardiology, not a candidate for heart catheterization secondary to acute kidney injury Insulin-dependent diabetes mellitus insulin sliding scale Dyslipidemia ERIK on CKD 3 Nicotine dependence Obesity Date of Service: Dec 14, 2024 Billing Provider: AZIZA GARCIA MD Common Visit Codes: [id number] DISCH DAY >30min AZIZA GARCIA MD Dec 14, 2024 10:06
[2024-12-14 10:32] LABS: Chloride 100 mmol/L (98-107); Potassium 4.4 mmol/L (3.5-5.1)
[2024-12-14 10:33] LABS: Anion Gap 8 (5-15); Calcium 9.4 mg/dL (8.7-10.4); Carbon Dioxide 22 mmol/L (20-31)
[2024-12-14 10:38] LABS: BUN/Creatinine Ratio 18.3 (10.0-20.0); Blood Urea Nitrogen 57 mg/dL (9-23); Glucose 318 mg/dL (74-106); Sodium 130 mmol/L (136-145)
[2024-12-14 11:21] LABS: Magnesium 2.4 mg/dL (1.6-2.6)
[2024-12-14 11:25] LABS: Phosphorus 6.5 mg/dL (2.4-5.1)
--- NOTE | 2024-12-14 13:13 | DVHPNRES ---
Progress Note Date Seen: Dec 14, 2024 Resident Creating Document: LEROY LYNCH RESIDENT Has the PT tested + for MRSA If YES, has PT been informed?: No Medical Necessity Reason Pt with a Central, PICC or Fol: No Subjective Patient reports: Feels better Changes from previous H/P or p: No Changes Other Systems: Patient seen and examined by myself today in round with the resident, I agree with his assessment and plan Objective vital signs Vital Sign Date Time Temp Pulse Resp B/P (MAP) Pulse Ox O2 Delivery O2 Flow Rate FiO2 12/14/24 12:42 97.9 71 18 97 12/14/24 09:23 120/56 12/14/24 08:30 Room Air* 0 21 Total Intake and Output 12/13/24 12/13/24 12/14/24 14:59 22:59 06:59 Intake Total 610 ml 360 ml Balance 610 ml 360 ml medications Current Medications Medications Dose Ordered Sig/Mariel Route Start Time Stop Time Status Last Admin Dose Admin Amlodipine Besylate 10 mg DAILY PO 12/12/24 10:00 12/14/24 09:21 10 MG Atorvastatin Calcium 40 mg HS PO 12/11/24 22:00 12/13/24 21:12 40 MG Gabapentin 400 mg DAILY PO 12/11/24 22:00 12/14/24 09:23 400 MG Metoprolol Tartrate 50 mg BID PO 12/11/24 22:00 12/14/24 09:22 50 MG Diagnostic Test (Pha) 1 strip IQ4HR 12/11/24 20:00 12/14/24 08:55 1 STRIP Insulin Human Regular IQ4HR SC 12/11/24 20:00 12/14/24 09:29 6 UNITS Dextrose 50 ml UD PRN IV 12/11/24 19:30 Ondansetron HCl 4 mg Q4HP PRN IV 12/11/24 19:30 Acetaminophen 650 mg Q6HP PRN PO 12/11/24 19:30 12/13/24 06:13 650 MG Nitroglycerin 0.4 mg Q5MINP PRN SL 12/11/24 19:30 Morphine Sulfate 2 mg Q30M PRN IV 12/11/24 19:30 12/12/24 13:58 2 MG Aspirin 81 mg DAILY PO 12/12/24 10:00 12/14/24 09:22 81 MG Acetaminophen/ Hydrocodone Bitart 1 tab Q8HPRN PRN PO 12/13/24 01:30 12/13/24 01:42 1 TAB Acetaminophen/ Hydrocodone Bitart 1 tab Q4HP PRN PO 12/13/24 10:45 12/14/24 09:22 1 TAB Furosemide 40 mg DAILY IV 12/14/24 10:00 12/14/24 09:23 40 MG Examination GENERAL:Normal, HEENT:Normal, NECK:Normal, LUNGS: Clear, breathing in room air comfortably, CVS: Left chest tenderness, ABDOMEN:Normal, MSK: Trace pedal edema nonpitting, SKIN:Normal, NEURO:Normal, :Normal laboratory and microbiology Laboratory Tests 12/14/24 10:03 12/12/24 04:44 Test 12/14/24 10:03 Range/Units Serum Glucose 318 H 74-106 mg/dL Labs and/or images reviewed: Labs reviewed by me, Image(s) reviewed by me Problem List/Assessment/Plan Problem List/Assessment/Plan Ms. Weston, a 48-year-old female with past medical history significant for CKD stage 3B, uncontrolled essential hypertension, diabetes mellitus, poor medical follow up, medical nonadherence, dyslipidemia, chronic smoking, grade 1 obesity, heart failure with preserved ejection fraction presented with left- sided chest pain which was found to be known cardiac likely musculoskeletal, was consulted Nephrology for ERIK. Did not followup with a Nephrology. Assessment: #ERIK due to VMN on CKD, workup pending. #CKD stage IIIB at baseline does not have established care with Nephrology #Anemia of chronic disease #Nephrotic range proteinuria >5gm/day. #Secondary hyperparathyroidism due to CKD #uncontrolled essential hypertension #Insulin-dependent diabetes mellitus , uncontrolled HbA1c of 11.3 #Noncardiac chest pain, musculoskeletal in nature Reproducible #Dyslipidemia on home statin #Nicotine dependence, active smoker #Chronic marijuana abuse #chronic alcohol abuse #Obesity grade 1 #HFpEF, hypertensive heart disease grade 1 diastolic dysfunction #Mild leg swelling, likely common side effect of home amlodipine #medical nonadherence #reactive thrombocytosis, improved Findings: # FeNa 1.5% skewed , intermediate. # BUN: 40, 42 , 57 # GFR: 23> 21 >18 # Creatinine: 2.55> 2.70 > 3.12 ( baseline around 1.9) # I&O: Not well documented, as per patient no change in urine volume or color +970 # Fluid status: Euvolemic, mild trace nonpitting pedal edema likely medication side effect. # Diet: Cardiac diet and salt restriction # Urinalysis: Unremarkable # Uosm: 304 #High phosphorus 6.5 #lower VItamin D #PTH 150 #Mag 2.4 Plan: # Worsening Hyperphosphatemia, start on sevelamer 1200 tid. # Check ur: cr, mg, strict Blood glucose monitoring and management with SSI. # Lasix IV 40 mg daily in hospital, at discharge continue oral lasix 40 mg bid. given ckd. # Given ERIK we will hold home spironolactone, and Jardiance till # Strict I&O and check Daily weight, Avoid Nephrotoxics Avoid hyper/hypo tension , cardiac diet and 2 g salt restriction # As per aha / ACC guidelines for diabetic hypertensive ideal blood pressure 130/80 or below # Continue supportive care, Daily BMP, BNP, follow up the renal ultrasound and Urine electrolytes workup. # Advised to establish care with outpatient CKD Clinic at discharge and strictly avoid NSAIDs for pain management. # Rest of the management as per primary team/ Cardiology. Close to discharge. Thank you for the opportunity to follow up on your patient. In case of any question feel free to reach out to the Nephrology team. We will follow up. Discussed with Nephrology attending Dr. Perkins. Plan discussed with: Patient, Other (RN, primary team. ) My Orders My Orders Orders - LEROY LYNCH Procedure Category Date Status Time Kidney US 12/13/24 Resulted 20:37 Furosemide Injection PHA 12/14/24 In Process (Lasix Injection) 10:00 LEROY LYNCH Dec 14, 2024 13:13 JOBY PERKINS MD Dec 14, 2024 16:29
[2024-12-14] MEDS ORDERED: SEVELAMER 800 MG TAB PO SCH (13:15)
[2024-12-14] MEDS ORDERED: IBU600T PO (16:53)
== END 2024-12-14 14:49 | disposition home or self-care (01) | DRG 203 ==
LOC: ER 14:27 → EDBD 14:27 → OVERFLOW 19:30 → TELE-EAST 12-12 15:31
PROVIDERS: ADMIT Family Medicine; ATTEND Family Medicine
DX: R07.89 Other chest pain (principal); N17.0 Acute kidney failure with tubular necrosis; I50.31 Acute diastolic (congestive) heart failure; D63.1 Anemia in chronic kidney disease; N25.81 Secondary hyperparathyroidism of renal origin; I13.0 Hypertensive heart and chronic kidney disease with heart failure and stage 1 through stage 4 chronic kidney disease, or unspecified chronic kidney disease; E11.22 Type 2 diabetes mellitus with diabetic chronic kidney disease; D75.838 Other thrombocytosis; E66.9 Obesity, unspecified; F12.10 Cannabis abuse, uncomplicated; N18.32 Chronic kidney disease, stage 3b; M25.512 Pain in left shoulder; F10.10 Alcohol abuse, uncomplicated; Y90.9 Presence of alcohol in blood, level not specified; F17.210 Nicotine dependence, cigarettes, uncomplicated; E78.00 Pure hypercholesterolemia, unspecified; Z88.5 Allergy status to narcotic agent; Z79.4 Long term (current) use of insulin; Z79.899 Other long term (current) drug therapy; Z79.82 Long term (current) use of aspirin; Z90.49 Acquired absence of other specified parts of digestive tract; Z87.442 Personal history of urinary calculi; Z82.49 Family history of ischemic heart disease and other diseases of the circulatory system; Z98.891 History of uterine scar from previous surgery; Z83.3 Family history of diabetes mellitus; Z82.3 Family history of stroke; Z68.31 Body mass index [BMI] 31.0-31.9, adult; Z81.1 Family history of alcohol abuse and dependence; Z91.199 Patient's noncompliance with other medical treatment and regimen due to unspecified reason
CPT/HCPCS: 36415; 71045; 73200; 76775; 80048; 80061; 80307; 81001; 82306; 82570; 82962; 83036; 83735; 83880; 83935; 83970; 84100; 84133; 84156; 84300; 84443; 84484; 85025; 86803; 87340; 93005; 94640; G0378; J1815; J2405

== ENCOUNTER 2024-12-14 15:00 | Emergency (ER) | payer MEDICAID ==
[~2024-12-14] VITALS: Ht 154.9 cm; Wt 76.5 kg
[~2024-12-14 15:00] MED LIST changes: +HYDR-4798 PO
--- NOTE | 2024-12-14 15:25 | ED.PDOC ---
History of Present Illness HPI Comments 48Y F with PMHx DM, HTN, CHF, [place], CKD, and kidney stones presents to ED for chief complaint chest pain x4-5 days. Pt states chest pain worsens with movement and deep breathing. Pt was discharged from [facility] today, 12/14/2024, but does not feel better so she came back to the ED. No other symptoms reported. Time Seen by MD: 15:10 Primary Care Provider: unknown Reviewed Notes: Nurses Notes, Medications, Allergies Allergies: Coded Allergies: Codeine (Verified Allergy, Unknown, 03/20/19) Home Meds Active Scripts Hydrocodone-Acetaminophen (Hydrocodone Bitartrate/AC 10-325 mg) 1 Tab Tab, 1 TAB PO QID PRN, #30 TAB Prov:AZIZA GARCIA MD 12/14/24 Albuterol Sulfate (VENTOLIN MDI) 90 Mcg Ih, 90 MCG IN TID for 5 Days, #1 INH Prov:PARISH JENSEN RESIDENT 10/26/24 Guaifenesin (Guaifenesin) 100 Mg/5 Ml Syp, 200 MG PO Q6HP PRN for 5 Days, #1 UNIT Prov:PARISH JENSEN RESIDENT 10/26/24 Ferrous Sulfate (Ferrous Sulfate) 325 Mg Tab, 325 MG PO DAILY for 30 Days, #30 TAB 2 Refills Prov:ANDREA JOSHUA RESIDENT 04/07/24 Reported Medications Insulin Lispro (Insulin Lispro Kwikpen) 100 Unit/Ml Inj, UNIT SC TID for 42 Days, #15 INJECT SUBCUTANEOUSLY 3 TIMES DAILY BEFORE MEAL(S) PER SLIDING SCALE DIRECTED. MAX 36 UNITS/DAY. 10/24/24 Spironolactone (Spironolactone) 25 Mg Tab, 1 TAB PO DAILY for 30 Days, #30 09/04/24 Amlodipine Besylate (Amlodipine Besylate) 10 Mg Tab, 1 TAB PO DAILY for 90 Days, #90 09/04/24 Pantoprazole Sodium Sesquihydr (Protonix) 40 Mg Tab, 1 TAB PO DAILY for 90 Days, #90 09/04/24 Metoprolol Tartrate (Metoprolol Tartrate) 50 Mg Tab, 1 TAB PO BID for 60 Days, #120 09/04/24 Metoclopramide Hcl (Metoclopramide Hcl) 5 Mg Tab, 1 TAB PO TID for 90 Days, #270 09/04/24 Insulin Glargine (Insulin Glargine) 100 Unit/Ml Marly, 46 UNIT SC QPM for 32 Days, #15 09/04/24 Gabapentin (Gabapentin) 100 Mg Cap, 400 MG PO BID for 90 Days, #180 09/04/24 Furosemide (Furosemide) 40 Mg Tab, 1 TAB PO DAILY for 90 Days, #90 09/04/24 Empagliflozin (Jardiance) 10 Mg Tab, 1 TAB PO DAILY for 90 Days, #90 09/04/24 Atorvastatin Calcium (Lipitor) 40 Mg Tab, 1 TAB PO DAILY for 90 Days, #90 09/04/24 Aspirin (Aspirin Low Dose) 81 Mg Chw, 1 TAB PO DAILY for 90 Days, #90 09/04/24 Information Source: Patient Mode of Arrival: Ambulatory Severity: Mild Timing: Days Duration: Since onset Prehospital treatment: None Past Medical History PAST MEDICAL HISTORY: CHF, CKF, DM, HTN, Kidney Stones, [place] Surgical History: Appendectomy, Cholecystectomy, 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 History: No Pertinent 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 History Family History Family History: Unknown Social History Smoker: Cigarettes, Less Than 1 Pack/Day Alcohol: Heavy Drugs: Marijuana Lives In: Home Constitutional: denies: chills, diaphoresis, fatigue, fever, malaise, sweats, weakness, others EENTM: denies: blurred vision, double vision, ear bleeding, ear discharge, ear drainage, ear pain, ear ringing, eye pain, eye redness, hearing loss, mouth pain, mouth swelling, nasal discharge, nose bleeding, nose congestion, nose pain, photophobia, tearing, throat pain, throat swelling, voice changes, others Respiratory: denies: cough, hemoptysis, orthopnea, SOB at rest, shortness of breath, SOB with excertion, stridor, wheezing, others Cardiovascular: reports: chest pain; denies: dizzy spells, diaphoresis, Dyspnea on exertion, edema, irregular heart beat, left arm pain, lightheadedness, palpitations, PND, syncope, others Gastrointestinal: denies: abdomen distended, abdominal pain, blood streaked bowels, constipated, diarrhea, dysphagia, difficulty swallowing, hematemesis, melena, nausea, poor appetite, poor fluid intake, rectal bleeding, rectal pain, vomiting, others Genitourinary: denies: abnormal vagina bleeding, burning, dyspareunia, dysuria, flank pain, frequency, hematuria, incontinence, pain, , vagina discharge, urgency, others Neurological: denies: dizziness, fainting, headache, left sided numbness, left sided weakness, numbness, paresthesia, pre-existing deficit, right sided numbness, right sided weakness, seizure, speech problems, tingling, tremors, weakness, others Musculoskeletal: denies: back pain, gout, joint pain, joint swelling, muscle pain, muscle stiffness, neck pain, others Integumetry: denies: bruises, change in color, change in hair/nails, dryness, laceration, lesions, lumps, rash, wounds, others Allergic/Immunocompromised: denies: Difficulty Healing, Frequent Infections, Hives, Itching, others Hematologic/Lymphatic: denies: anemia, blood clots, easy bleeding, easy bruising, swollen glands, others Endocrine: denies: excessive hunger, excessive sweating, excessive thirst, excessive urination, flushing, intolerance to cold, intolerance to heat, unexplained weight gain, unexplained weight loss, others Psychiatric: denies: anxiety, bipolar disorder, depression, hopeless, panic disorder, schizophrenia, sleepless, suicidal, others All Other Systems: Reviewed and Negative Physical Exam General Appearance: No Apparent Distress, Normal HEENT: Normal ENT Inspection, Pharynx Normal, TMs Normal Neck: Full Range of Motion, Non-Tender, Normal, Normal Inspection Respiratory: Chest Non-Tender, Lungs Clear, No Accessory Muscle Use, No Respiratory Distress, Normal Breath Sounds Cardiovascular: No Edema, No JVD, No Murmur, No Gallop, Normal Peripheral Pulses, Regular Rate/Rhythm Breast Exam: Deferred Gastrointestinal: No Organomegaly, Non Tender, No Pulsatile Mass, Normal Bowel Sounds, Soft Genitalia: Deferred Pelvic: Deferred Rectal: Deferred Extremities: No calf tenderness, Normal capillary refill, Normal inspection, Normal range of motion, Non-tender, No pedal edema Musculoskeletal : Apperance: Other (non tender chest wall but chest hurts more with arm movement and with deep breathing) Neurologic: Alert, thermodynamicist II-XII nml as Tested, No Motor Deficits, Normal Affect, Normal Mood, No Sensory Deficits Cerebellar Function: Normal Reflexes: Normal Skin: Dry, Normal Color, Warm Lymphatic: No Adenopathy Was a procedure done? Was a procedure done?: No Differential Dx Considerations may include: chest wall pain, PE, acs, chronic pain, anxiety X-Ray, Labs, Meds, VS Vital Signs Date Time Temp Pulse Resp B/P (MAP) Pulse Ox O2 Delivery O2 Flow Rate FiO2 12/14/24 16:07 64 18 100 Room Air* 0 21 12/14/24 16:02 64 12/14/24 16:02 98.2 64 17 135/68 (90) 100 98.2 12/14/24 15:31 63 12/14/24 15:23 98.5 60 20 128/57 (80) 98 98.5 12/14/24 15:23 60 Lab Test 12/14/24 16:24 12/14/24 15:49 12/14/24 15:23 Range/Units POC Glucose 317 H 324 H 70-106 mg/dl D-Dimer, Quantitative 0.43 0.0-0.49 mg/L FEU Troponin I High Sensitivity 8 </=34 ng/L Current Medications Medications (Trade) Dose Ordered Sig/Mariel Route Start Time Stop Time Status Last Admin Acetaminophen/ Hydrocodone Bitart ([place] 5/325MG Tab) 1 tab ONCE ONCE PO 12/14/24 15:30 12/14/24 15:31 DC 12/14/24 16:18 Sodium Chloride 1,000 ml @ 1,000 mls/hr Q1H ONCE IV 12/14/24 15:30 12/14/24 16:29 DC 12/14/24 16:17 Insulin Human Regular (InsuLIN R) 6 units ONCE ONCE SC 12/14/24 15:30 12/14/24 15:31 DC 12/14/24 16:30 [place] [id number] Ph: [phone] DIAGNOSTIC IMAGING Diagnostic Imaging Report : [id number] Signed PATIENT: PRABHU GAMEZT: [id number] UNIT: [id number] : 1975 LOC: ER ROOM / BED: / AGE / SEX: 48 / F ADM STATUS: REG ER SERVICE 1520 ORDERING PHYSICIAN: DWAYNE FORREST MD PROCEDURE(s): CXRP - CHEST PORTABLE REASON: cp ORDER NUMBER(s): [id number], ACCESSION NUMBER(s): [id number] CHEST RADIOGRAPH Indication: cp Technique: Single frontal view of the chest was obtained Comparison: XY CHEST PORTABLE on DOS: 12/11/24, XY CHEST XRAY 1 VIEW on DOS: 10/23/24, XY CHEST XRAY 1 VIEW on DOS: 09/06/24 FINDINGS: Lines and Tubes: None Lungs: No focal consolidation. Pleura: No effusion. No pneumothorax. Cardiomediastinal contours: Unremarkable Bones: No acute osseous abnormality. IMPRESSION: 1. No acute cardiopulmonary disease. ATED BY: MARCO VASQUEZ Jr., DO DICTATED DATE/TIME: 12/14/24 1556 SIGNED BY: MARCO VASQUEZ Jr., SIGNED DATE/TIME: 12/14/24 1556 CC: Time of 1ST Reevaluation: 15:40 Reevaluation 1ST: Unchanged Time of 2ND Reevaluation: 16:51 Reevaluation 2ND: Improved Patient Education/Counseling: Diagnosis, Treatment, Prognosis, Need For Follow Up Family Education/Counseling: No Family Present Additional Information Previous visit documents reviewed: [facility] discharge 12/14/2024, 10/27/2024, 09/10/2024, 07/26/2024, 04/07/2024, 11/22/2023, 08/11/2023, 08/05/2023, 02/08/2022, 07/15/2019 The following tests were ordered, and results were reviewed by me: EKG x2, D- dimer, Troponin x2, CXR Additional Information was gathered from interviewing the following independent historians: None I reviewed and agreed with the following test results read by other providers: CXR I discussed treatment and results with medical personnel and: Patient pt was just assessed by cardiology after several days of admission. upon discharge, she felt no better, so came down to ER. her symptoms are more muscular and pleuritic, so i ordered a DDi to rule out PE. this was unremarkable. pt is stable for discharge Departure 1 Departure Time of Disposition: 16:52 Impression: Primary Impression: Chest wall pain Disposition: 01 HOME / SELF CARE / HOMELESS Condition: Good e-Prescriptions Ibuprofen Micronized (MOTRIN TABLET) 600 Mg Tb 600 MG PO TID PRN, #40 TAB *Black box warning-NSAIDS can increase risk of [place] & hypertension, GI irritation, ulceration, bleed, perferation. Do not use post cardiac surgery. Use short duration/lowest effective dose. Prov: DWAYNE FORREST MD 12/14/24 Discharged With: Self Critical Care Note Critical Care Time?: No Stability Stability form required: No Heart Score Heart Score: Heart Score Response (Comments) Value History Slightly Suspicious 0 EKG Normal 0 Age 45-64 1 Risk Factors 1 or 2 risk factors 1 Troponin Normal limit 0 Total 2 I personally scribed for DWAYNE FORREST MD ([email or web address]) on 12/14/24 at 15:25. Electronically submitted by Karuna Woodson ([email or web address]). I personally scribed for DWAYNE FORREST MD ([email or web address]) on 12/14/24 at 16:09. Electronically submitted by Karuna Woodson ([email or web address]). DWAYNE FORREST MD Dec 14, 2024 15:25
--- NOTE | 2024-12-14 15:40 | ECG ---
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
--- NOTE | 2024-12-14 15:59 | [facility] ---
CHEST RADIOGRAPH Indication: cp Technique: Single frontal view of the chest was obtained Comparison: XY CHEST PORTABLE on DOS: 12/11/24, XY CHEST XRAY 1 VIEW on DOS: 10/23/24, XY CHEST XRAY 1 VIEW on DOS: 09/06/24 FINDINGS: Lines and Tubes: None Lungs: No focal consolidation. Pleura: No effusion. No pneumothorax. Cardiomediastinal contours: Unremarkable Bones: No acute osseous abnormality. IMPRESSION: 1. No acute cardiopulmonary disease.
[2024-12-14 16:02] VITALS: BP 135/68; TEMP 98.2
[2024-12-14 16:07] VITALS: PULSE 64; RESP 18; O2SAT 100
[2024-12-14] MEDS: SODIUM CHLORIDE 0.9% 1,000 ML IV ONE (16:17)
[2024-12-14] MEDS: HYDROcodone-ACET 5/325MG TAB PO ONE (16:18)
[2024-12-14] MEDS: InsuLIN REG 1unit/0.01ml Soln (100units/ml) SC ONE (16:30)
[2024-12-14] MEDS ORDERED: IBU600T PO (16:53)
== END 2024-12-14 17:29 | disposition home or self-care (01) ==
LOC: ER 15:00
DX: R07.89 Other chest pain (principal); I13.0 Hypertensive heart and chronic kidney disease with heart failure and stage 1 through stage 4 chronic kidney disease, or unspecified chronic kidney disease; E11.22 Type 2 diabetes mellitus with diabetic chronic kidney disease; I50.9 Heart failure, unspecified; N18.9 Chronic kidney disease, unspecified; I25.2 Old myocardial infarction; F17.210 Nicotine dependence, cigarettes, uncomplicated; F12.90 Cannabis use, unspecified, uncomplicated; Z90.49 Acquired absence of other specified parts of digestive tract; Z79.899 Other long term (current) drug therapy; Z79.84 Long term (current) use of oral hypoglycemic drugs; Z79.82 Long term (current) use of aspirin; Z79.4 Long term (current) use of insulin; Z88.5 Allergy status to narcotic agent
CPT/HCPCS: 36415; 71045; 82947; 84484; 85379; 93005; 96360; 96372; 99285; J1815; J7030; 82962

== ENCOUNTER 2025-02-04 17:51 | Inpatient (IN) | payer MEDICAID ==
[~2025-02-04] VITALS: Ht 154.9 cm; Wt 77.7 kg
[~2025-02-04 17:51] MED LIST changes: +IBU600T PO
--- NOTE | 2025-02-04 18:49 | ED.PDOC ---
History of Present Illness HPI Comments 49-year-old obese female, with a history of CHF, CKF, DM, HLD, and HTN, presents with 3x day history of left-upper tooth pain and hyperglycemia. Patient reports constant pain in addition to checking and, consistently, measuring her blood glucose levels in the high 500's-to-700's range for the past 3 days. Endorses compliancy with her Metformin, Glipizide, and 46 units Lantus medications and last taking her Lantus 30x minutes prior to arrival along with a [place] medication from her friend to manage the pain. States on not seeing a dentist for tooth pain. Denies having any fever, chills, numbness, tingling, polydipsia, polyphagia, polyuria, or other associated symptoms or modifiers. Chief Complaint: Hyperglycemia Time Seen by MD: 18:15 Primary Care Provider: unknown Reviewed Notes: Nurses Notes, Medications, Allergies Allergies: Coded Allergies: Codeine (Verified Allergy, Unknown, 03/20/19) Home Meds Active Scripts Ibuprofen Micronized (MOTRIN TABLET) 600 Mg Tb, 600 MG PO TID PRN, #40 TAB *Black box warning-NSAIDS can increase risk of [place] & hypertension, GI irritation, ulceration, bleed, perferation. Do not use post cardiac surgery. Use short duration/lowest effective dose. Prov:DWAYNE FORREST MD 12/14/24 Hydrocodone-Acetaminophen (Hydrocodone Bitartrate/AC 10-325 mg) 1 Tab Tab, 1 TAB PO QID PRN, #30 TAB Prov:AZIZA GARCIA MD 12/14/24 Albuterol Sulfate (VENTOLIN MDI) 90 Mcg Ih, 90 MCG IN TID for 5 Days, #1 INH Prov:PARISH JENSEN RESIDENT 10/26/24 Guaifenesin (Guaifenesin) 100 Mg/5 Ml Syp, 200 MG PO Q6HP PRN for 5 Days, #1 UNIT Prov:PARISH JENSEN RESIDENT 10/26/24 Ferrous Sulfate (Ferrous Sulfate) 325 Mg Tab, 325 MG PO DAILY for 30 Days, #30 TAB 2 Refills Prov:ANDREA JOSHUA RESIDENT 04/07/24 Reported Medications Insulin Lispro (Insulin Lispro Kwikpen) 100 Unit/Ml Inj, UNIT SC TID for 42 Days, #15 INJECT SUBCUTANEOUSLY 3 TIMES DAILY BEFORE MEAL(S) PER SLIDING SCALE DIRECTED. MAX 36 UNITS/DAY. 10/24/24 Spironolactone (Spironolactone) 25 Mg Tab, 1 TAB PO DAILY for 30 Days, #30 09/04/24 Amlodipine Besylate (Amlodipine Besylate) 10 Mg Tab, 1 TAB PO DAILY for 90 Days, #90 09/04/24 Pantoprazole Sodium Sesquihydr (Protonix) 40 Mg Tab, 1 TAB PO DAILY for 90 Days, #90 09/04/24 Metoprolol Tartrate (Metoprolol Tartrate) 50 Mg Tab, 1 TAB PO BID for 60 Days, #120 09/04/24 Metoclopramide Hcl (Metoclopramide Hcl) 5 Mg Tab, 1 TAB PO TID for 90 Days, #270 09/04/24 Insulin Glargine (Insulin Glargine) 100 Unit/Ml Marly, 46 UNIT SC QPM for 32 Days, #15 09/04/24 Gabapentin (Gabapentin) 100 Mg Cap, 400 MG PO BID for 90 Days, #180 09/04/24 Furosemide (Furosemide) 40 Mg Tab, 1 TAB PO DAILY for 90 Days, #90 09/04/24 Empagliflozin (Jardiance) 10 Mg Tab, 1 TAB PO DAILY for 90 Days, #90 09/04/24 Atorvastatin Calcium (Lipitor) 40 Mg Tab, 1 TAB PO DAILY for 90 Days, #90 09/04/24 Aspirin (Aspirin Low Dose) 81 Mg Chw, 1 TAB PO DAILY for 90 Days, #90 09/04/24 Information Source: Patient Mode of Arrival: Ambulatory Severity: Moderate Timing: Days Duration: Since onset Prehospital treatment: None Review of Systems: REVIEW OF SYSTEMS: No fever, no chills, HEENT: left upper to pain. No neck pain, no blurred vision Cardiac: No chest pain. No palpitations. Lungs: No shortness of breath, GI: No abdominal pain, no vomiting Musculoskeletal: No joint pain , no back pain Skin: No rash, no wound Endocrine: Hyperglycemia Neuro: No headache, no dizziness, no syncope Vital Signs Vital Signs Date Time Temp Pulse Resp B/P (MAP) Pulse Ox O2 Delivery O2 Flow Rate FiO2 02/04/25 18:42 97.7 78 18 168/70 (102) 99 97.7 Physical Exam General: Awake, alert and oriented. No acute distress. Skin: Skin in warm, dry and intact without rashes or lesions. HEENT: The head is normocephalic and atraumatic. Conjunctivae are clear without exudates or hemorrhage. Sclera is non-icteric. Left upper tooth molar fracture; positive dental caries; no dental abscess; no stridor, facial swelling, or jaw tenderness. Neck: Normal range of motion. No JVD. Cardiac: Regular rate Respiratory: No signs of respiratory distress. No Stridor. Extremities: Upper and lower extremities are atraumatic in appearance without deformity. Neurological: The patient is awake, alert and oriented to person, place, and time with normal speech. Speech is clear. There is no facial asymmetry. Psychiatric: Appropriate mood and affect. Good judgement and insight. 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 Was a procedure done?: No Differential Dx Considerations may include: dental carries, dental abscess, sepsis, inappropriate medication dosage, amongst others X-Ray, Labs, Meds, VS Vital Signs Date Time Temp Pulse Resp B/P (MAP) Pulse Ox O2 Delivery O2 Flow Rate FiO2 02/04/25 18:42 97.7 78 18 168/70 (102) 99 97.7 Lab Test 02/04/25 19:11 02/04/25 19:00 02/04/25 18:12 02/04/25 18:10 Range/Units Blood Gas Specimen Type Arterial Blood Gas Sample Site Right radial Blood Gas Patient Temperature 37.0 Arterial Blood Date Drawn [id number] Arterial Blood pH 7.408 7.350-7.450 Arterial Blood Partial Pressure CO2 29.9 L 32.0-45.0 mmHg Arterial Blood Partial Pressure O2 74.0 L 83.0-108.0 mmHg Arterial Blood HCO3 18.4 L 21.0-28.0 mmol/L Arterial Blood Oxygen Saturation 95.6 94.0-98.0 % Arterial Blood Base Excess -5.2 L -2.0-3.0 mmol/L Arterial Blood Oxyhemoglobin 95.0 94.0-98.0 % Arterial Blood Carboxyhemoglobin 0.3 L 0.5-1.5 % Arterial Blood Methemoglobin 0.3 0.0-1.5 % Raymond Test Yes Blood Gas Total Hemoglobin 10.70 L 12.0-16.0 g/dL Blood Gas Modality Room air FiO2 % 21.0 White Blood Count 8.7 4.4-10.8 10^3/uL Red Blood Count 3.66 L 4.0-5.20 10^6/uL Hemoglobin 10.7 L 12.2-16.2 g/dL Hematocrit 31.8 L 36.0-46.0 % Mean Corpuscular Volume 86.8 80.0-100.0 fL Mean Corpuscular Hemoglobin 29.2 28.0-32.0 pg Mean Corpuscular Hemoglobin Concent 33.7 32.0-36.0 g/dL Red Cell Distribution Width 14.8 H 11.8-14.3 % Platelet Count 406 140-450 10^3/uL Mean Platelet Volume 9.4 6.9-10.8 fL Neutrophils (%) (Auto) 60.8 37.0-80.0 % Lymphocytes (%) (Auto) 30.0 10.0-50.0 % Monocytes (%) (Auto) 5.8 0.0-12.0 % Eosinophils (%) (Auto) 2.7 0.0-7.0 % Basophils (%) (Auto) 0.7 0.0-2.0 % Neutrophils # (Auto) 5.3 1.6-8.6 10 ^3/uL Lymphocytes # (Auto) 2.6 0.4-5.4 10 ^3/uL Monocytes # (Auto) 0.5 0-1.3 10 ^3/uL Eosinophils # (Auto) 0.2 0-0.8 10 ^3/uL Basophils # (Auto) 0.1 0-0.2 10 ^3/uL Nucleated Red Blood Cells 0.0 % Sodium Level 131 L 136-145 mmol/L Potassium Level 3.9 3.5-5.1 mmol/L Chloride Level 102 98-107 mmol/L Carbon Dioxide Level 19 L 20-31 mmol/L Anion Gap 10 5-15 Blood Urea Nitrogen 19 9-23 mg/dL Creatinine 1.98 H 0.550-1.02 mg/dL Glomerular Filtration Rate Calc 30 >90 mL/min BUN/Creatinine Ratio 9.6 L 10.0-20.0 Serum Glucose 488 *H 74-106 mg/dL Calcium Level 9.0 8.7-10.4 mg/dL Magnesium Level 2.0 1.6-2.6 mg/dL Total Bilirubin 0.2 0.2-1.0 mg/dL Aspartate Amino Transferase (AST) 12 L 13-40 U/L Alanine Aminotransferase (ALT) 18 7-40 U/L Alkaline Phosphatase 118 H 46-116 U/L Total Protein 6.2 5.7-8.2 g/dL Albumin 3.6 3.2-4.8 g/dL Beta-Hydroxybutyric Acid 0.090 < 0.4 mmol/L POC Glucose 426 *H 412 *H 70-106 mg/dl Time of 1ST Reevaluation: 18:45 Reevaluation 1ST: Unchanged Patient Education/Counseling: Other (Need for admission) Family Education/Counseling: No Family Present Departure 1 Departure Time of Disposition: 20:20 Impression: Primary Impression: Diabetes mellitus with hyperglycemia Additional Impression: Acute kidney injury Disposition: ADMITTED INPATIENT Condition: Stable Comments 49-year-old female with uncontrolled diabetes, hyperglycemia without DKA, ERIK. IV fluids, insulin, initiated in the ED. Patient admitted to hospitalist service for further treatment, evaluation and monitoring. Extensive evaluation was performed in attempt to identify or rule out: (See differential diagnosis section) The following tests were ordered, and results were reviewed by me and discussed with patient: (See diagnostic results section) The following test were independently interpreted by me: N/A I reviewed and agreed with the following test results read by other providers: N/A I reviewed the following notes from the pt's past medical encounters: N December 11 and 2024 encounters for chest pain of unknown etiology and chest wall pain, respectively Additional information was gathered from interviewing the following independent historians: N/A Discussion of management or test interpretation with external physician/other qualified health animal caretaker: N/A Addressed an acute or chronic illness that poses a threat to life or bodily function: Acute kidney injury, hyperglycemia Decision regarding hospitalization or escalation of hospital level of care: Risk and benefits of admission for further treatment of patient's condition was considered. Due to patient's current clinical condition, high risk of decline and poor outcome if discharged and need for further inpatient management and monitoring, patient will be admitted to the hospital. Drug therapy requiring intensive monitoring for toxicity: IV insulin Parenteral controlled substances: N/A Decision regarding elective major surgery with identified patient or procedure risk factors: N/A Decision regarding emergency major surgery: N/A Decision not to resuscitate or to de-escalate care because of poor prognosis: N/A Diagnosis or treatment significantly limited by social determinants of health: N/A Critical Care Note Critical Care Time?: No Stability Stability form required: No Heart Score Heart Score: Heart Score Response (Comments) Value History N/A 0 EKG N/A 0 Age N/A 0 Risk Factors N/A 0 Troponin N/A 0 Total 0 I personally scribed for MAY CORBETT MD ([email or web address]) on 02/04/25 at 18:49. Electronically submitted by Chano Vargas ([email or web address]). MAY CORBETT MD February 04, 2025 18:49
[2025-02-04 19:34] LABS: Basophils # (auto) 0.1 10 ^3/uL (0-0.2); Basophils % (auto) 0.7 % (0.0-2.0); Eosinophils # (auto) 0.2 10 ^3/uL (0-0.8); Eosinophils % (auto) 2.7 % (0.0-7.0); Hematocrit 31.8 % (36.0-46.0); Hemoglobin 10.7 g/dL (12.2-16.2); Lymphocytes # (auto) 2.6 10 ^3/uL (0.4-5.4); Mean Corpuscular Hemoglobin 29.2 pg (28.0-32.0); Mean Corpuscular Hgb Conc. 33.7 g/dL (32.0-36.0); Mean Corpuscular Volume 86.8 fL (80.0-100.0); Monocytes # (auto) 0.5 10 ^3/uL (0-1.3); Monocytes % (auto) 5.8 % (0.0-12.0); Neutrophils # (auto) 5.3 10 ^3/uL (1.6-8.6); Neutrophils % (auto) 60.8 % (37.0-80.0); Platelet Count (auto) 406 10^3/uL (140-450); Red Blood Cells 3.66 10^6/uL (4.0-5.20); Red Cell Distribution Width 14.8 % (11.8-14.3); White Blood Cell 8.7 10^3/uL (4.4-10.8)
[2025-02-04 19:35] LABS: Base Excess -5.2 mmol/L (-2.0-3.0)
[2025-02-04 19:56] LABS: Alanine Aminotransferase 18 U/L (7-40); Albumin 3.6 g/dL (3.2-4.8); Anion Gap 10 (5-15); BUN/Creatinine Ratio 9.6 (10.0-20.0); Blood Urea Nitrogen 19 mg/dL (9-23); Chloride 102 mmol/L (98-107); Potassium 3.9 mmol/L (3.5-5.1); Total Protein 6.2 g/dL (5.7-8.2)
[2025-02-04 19:59] LABS: Alkaline Phosphatase 118 U/L (46-116); Aspartate Aminotransferase 12 U/L (13-40); Bilirubin, Total 0.2 mg/dL (0.2-1.0); Carbon Dioxide 19 mmol/L (20-31); Sodium 131 mmol/L (136-145)
[2025-02-04 20:00] LABS: Glucose 488 mg/dL (74-106)
[2025-02-04] MEDS ORDERED: DEXTROSE (50%) 50ML SYRG IV PRN ×3 (20:15→21:30)
[2025-02-04] MEDS: LIDOCAINE VISCOUS 2% 15ML UD PO ONE (20:56)
[2025-02-04] MEDS: SODIUM CHLORIDE 0.9% 1,000 ML IV ONE ×3 (20:56→23:36)
[2025-02-04] MEDS: cefTRIAXone 1GM/50ML D5W 50 ML IV ONE (20:57)
[2025-02-04] MEDS: KETOROLAC TROMETH 30 MG/ML 1ML VIAL IV ONE (20:57)
[2025-02-04] MEDS: ACCU-CHEK COMFORT CURVE STRIP VI STA (21:05)
[2025-02-04] MEDS: InsuLIN REG 1unit/0.01ml Soln (100units/ml) IV ONE (21:07)
[2025-02-04 21:08] VITALS: PULSE 80; RESP 16; O2SAT 98
[2025-02-04] MEDS ORDERED: ONDANSETRON HCL 4 MG/2 ML VIAL IV PRN (21:30)
[2025-02-04] MEDS ORDERED: ALBUTEROL SULF 2.5 MG/0.5ML(0.5%) NEB SOLN NEB PRN (21:30)
[2025-02-04 21:34] VITALS: BP 163/83; PULSE 84; RESP 16; O2SAT 98
[2025-02-04] MEDS: METOPROLOL TARTRATE 50 MG TAB PO SCH (23:41)
[2025-02-05 00:32] LABS: Urine Bacteria None Seen /hpf (None Seen)
[2025-02-05 00:47] LABS: Urine Blood 1+ /uL (Negative); Urine Budding Yeast MODERATE /hpf (None Seen); Urine Clarity Clear (Clear); Urine Color Light-Yellow (Yellow); Urine Protein, UAD 3+ (Negative); Urine Specific Gravity 1.017 (1.001-1.035); Urine Squamous Epithelial Cell FEW /hpf (<5); Urine Urobilinogen Normal (Negative); Urine WBC 4 /HPF (0-5); Urine pH 6.5 (5.0-9.0)
[2025-02-05] MEDS: ACETAMINOPHEN 325 MG TAB PO PRN (03:27)
[2025-02-05] MEDS: ACCU-CHEK COMFORT CURVE STRIP VI ONE (03:32)
[2025-02-05] MEDS: InsuLIN REG 1unit/0.01ml Soln (100units/ml) SC SCH ×3 (04:41→22:25)
[2025-02-05] MEDS: ACCU-CHEK COMFORT CURVE STRIP VI SCH ×2 (04:42→17:00)
[2025-02-05] MEDS: ATORVASTATIN 20 MG TAB PO SCH (04:46)
--- NOTE | 2025-02-05 05:11 | DVHHP2 ---
History of Present Illness Reason for Visit: Hyperglycemia History of Present Illness 49-year-old female presents for evaluation of hyperglycemia. Patient reports a three day history of elevated blood sugar. Denies fever or chills. No dysuria. Patient does words having a tooth ache. No nausea or vomiting. No other acute complaints reported. Past Medical History Diabetes mellitus, hypertension, mi, CHF, chronic kidney disease Past Surgical History Cholecystectomy, appendectomy Family History Noncontributory Review of Systems Review of Systems Review of systems are currently negative otherwise addressed in HPI. Allergies: Coded Allergies: Codeine (Verified Allergy, Unknown, 03/20/19) Medications Current Medications Medications Dose Ordered Sig/Mariel Route Start Time Stop Time Status Last Admin Dose Admin Dextrose 50 ml PRN PRN IV 02/04/25 20:15 Atorvastatin Calcium 40 mg HS PO 02/04/25 22:00 Amlodipine Besylate 10 mg DAILY PO 02/05/25 10:00 Albuterol 2.5 mg Q6HPRN PRN NEB 02/04/25 21:30 Metoprolol Tartrate 50 mg BID PO 02/04/25 22:00 02/04/25 23:41 50 MG Spironolactone 25 mg DAILY PO 02/05/25 10:00 Diagnostic Test (Pha) 1 strip IQ4HR 02/05/25 00:00 02/05/25 04:49 1 STRIP Insulin Human Regular IQ4HR SC 02/05/25 00:00 02/05/25 04:54 6 UNITS Dextrose 50 ml UD PRN IV 02/04/25 21:30 Ondansetron HCl 4 mg Q4HP PRN IV 02/04/25 21:30 Acetaminophen 650 mg Q6HP PRN PO 02/04/25 21:30 02/05/25 03:27 650 MG Exam Vital Signs Vital Signs Date Time Temp Pulse Resp B/P (MAP) Pulse Ox O2 Delivery O2 Flow Rate FiO2 02/05/25 05:01 97.9 64 18 147/60 (89) 99 97.9 02/04/25 21:34 21 02/04/25 21:08 Room Air* 0 Exam Gen: 49-year-old female in no apparent distress. Skin: Warm, dry, normal color and texture, no rash. HEENT: Normocephalic atraumatic, mucous membranes moist and pink. Neck: Cervical and supraclavicular nodes normal without enlargement, trachea is midline, thyroid gland is normal without masses. Pulmonary: Clear to auscultation and percussion bilaterally. Cardiac: Regular rate and rhythm. No murmur Abdomen: Soft, nontender, nondistended, bowel sounds present all 4 quadrants, no guarding, no rigidity, no organomegaly. Extremities: No cyanosis, clubbing, no edema Neuro: Cranial nerves II through XII grossly intact, normal affect and speech, no focal motor deficits. Labs/Xrays Labs Test 02/05/25 00:32 02/04/25 21:02 02/04/25 19:11 02/04/25 19:00 Range/Units Urine Color Light-yellow Yellow Urine Clarity Clear Clear Urine pH 6.5 5.0-9.0 Urine Specific [place] 1.017 1.001-1.035 Urine Protein 3+ H Negative Urine Ketones Negative Negative Urine Blood 1+ H Negative /uL Urine Nitrite Negative Negative Urine Bilirubin Negative Negative Urine Urobilinogen Normal Negative mg/dL Urine Leukocyte Esterase Negative Negative /uL Urine RBC 2 0 - 4 /hpf Urine Microscopic WBC 4 0-5 /HPF Urine Squamous Epithelial Cells Few <5 /hpf Urine Bacteria None seen None Seen /hpf Urine Yeast (Budding) Moderate None Seen /hpf Urine Glucose 4+ H Normal mg/dL POC Glucose 367 H 70-106 mg/dl Blood Gas Specimen Type Arterial Blood Gas Sample Site Right radial Blood Gas Patient Temperature 37.0 Arterial Blood Date Drawn [id number] Arterial Blood pH 7.408 7.350-7.450 Arterial Blood Partial Pressure CO2 29.9 L 32.0-45.0 mmHg Arterial Blood Partial Pressure O2 74.0 L 83.0-108.0 mmHg Arterial Blood HCO3 18.4 L 21.0-28.0 mmol/L Arterial Blood Oxygen Saturation 95.6 94.0-98.0 % Arterial Blood Base Excess -5.2 L -2.0-3.0 mmol/L Arterial Blood Oxyhemoglobin 95.0 94.0-98.0 % Arterial Blood Carboxyhemoglobin 0.3 L 0.5-1.5 % Arterial Blood Methemoglobin 0.3 0.0-1.5 % Raymond Test Yes Blood Gas Total Hemoglobin 10.70 L 12.0-16.0 g/dL Blood Gas Modality Room air FiO2 % 21.0 White Blood Count 8.7 4.4-10.8 10^3/uL Red Blood Count 3.66 L 4.0-5.20 10^6/uL Hemoglobin 10.7 L 12.2-16.2 g/dL Hematocrit 31.8 L 36.0-46.0 % Mean Corpuscular Volume 86.8 80.0-100.0 fL Mean Corpuscular Hemoglobin 29.2 28.0-32.0 pg Mean Corpuscular Hemoglobin Concent 33.7 32.0-36.0 g/dL Red Cell Distribution Width 14.8 H 11.8-14.3 % Platelet Count 406 140-450 10^3/uL Mean Platelet Volume 9.4 6.9-10.8 fL Neutrophils (%) (Auto) 60.8 37.0-80.0 % Lymphocytes (%) (Auto) 30.0 10.0-50.0 % Monocytes (%) (Auto) 5.8 0.0-12.0 % Eosinophils (%) (Auto) 2.7 0.0-7.0 % Basophils (%) (Auto) 0.7 0.0-2.0 % Neutrophils # (Auto) 5.3 1.6-8.6 10 ^3/uL Lymphocytes # (Auto) 2.6 0.4-5.4 10 ^3/uL Monocytes # (Auto) 0.5 0-1.3 10 ^3/uL Eosinophils # (Auto) 0.2 0-0.8 10 ^3/uL Basophils # (Auto) 0.1 0-0.2 10 ^3/uL Nucleated Red Blood Cells 0.0 % Sodium Level 131 L 136-145 mmol/L Potassium Level 3.9 3.5-5.1 mmol/L Chloride Level 102 98-107 mmol/L Carbon Dioxide Level 19 L 20-31 mmol/L Anion Gap 10 5-15 Blood Urea Nitrogen 19 9-23 mg/dL Creatinine 1.98 H 0.550-1.02 mg/dL Glomerular Filtration Rate Calc 30 >90 mL/min BUN/Creatinine Ratio 9.6 L 10.0-20.0 Serum Glucose 488 *H 74-106 mg/dL Hemoglobin A1c > 14.0 H <5.7 % A1C Calcium Level 9.0 8.7-10.4 mg/dL Magnesium Level 2.0 1.6-2.6 mg/dL Total Bilirubin 0.2 0.2-1.0 mg/dL Aspartate Amino Transferase (AST) 12 L 13-40 U/L Alanine Aminotransferase (ALT) 18 7-40 U/L Alkaline Phosphatase 118 H 46-116 U/L Total Protein 6.2 5.7-8.2 g/dL Albumin 3.6 3.2-4.8 g/dL Beta-Hydroxybutyric Acid 0.090 < 0.4 mmol/L Assessment/Plan Assessment/Plan Assessment Uncontrolled diabetes mellitus Chronic kidney disease Possible UTI Plan Admit the patient to Med surge to the hospitalist Quinten Resume home medications Pain management Continue treatment per orders. Plan discussed with: Patient My Orders Orders - STACIE SHRESTHA Procedure Category Date Status Time Atorvastatin (Lipitor) PHA 02/04/25 In Process 22:00 Amlodipine Tablet PHA 02/05/25 In Process (Norvasc Tablet) 10:00 Albuterol Medneb PHA 02/04/25 In Process (Ventolin Medneb) 21:30 Metoprolol Tartrate PHA 02/04/25 In Process Tablet (Lopressor Ta 22:00 Spironolactone PHA 02/05/25 In Process (Aldactone) 10:00 Basic Metabolic Panel LAB 02/05/25 Logged 04:00 Glucose Blood PHA 02/05/25 In Process (Accu-Chek Comfort 00:00 Insulin R (Human) PHA 02/05/25 In Process (Insulin R) 00:00 Dextrose 50% Syringe PHA 02/04/25 In Process 21:30 Admit ADMIT 02/04/25 Transmitted 21:21 Renal DIET 02/05/25 Transmitted Standard(2gna,3gk,Lopho) Breakfast Ondansetron Hcl PHA 02/04/25 In Process (Zofran) 21:30 Complete Blood Count LAB 02/05/25 Logged 04:00 Condition: Stable VELMA 02/04/25 In Process 21:21 Acetaminophen Tablet PHA 02/04/25 In Process (Tylenol Tablet) 21:30 Bedrest With Bathroom VELMA 02/04/25 In Process Privileg 21:21 Date of Service: February 04, 2025 Billing Provider: STACIE SHRESTHA Common Visit Codes: [id number] INP/OBS CARE (MOD) STACIE SHRESTHA February 05, 2025 05:10
[2025-02-05 06:37] LABS: Basophils # (auto) 0.1 10 ^3/uL (0-0.2); Basophils % (auto) 0.7 % (0.0-2.0); Eosinophils # (auto) 0.3 10 ^3/uL (0-0.8); Eosinophils % (auto) 2.8 % (0.0-7.0); Hemoglobin 9.7 g/dL (12.2-16.2); Lymphocytes # (auto) 2.9 10 ^3/uL (0.4-5.4); Lymphocytes % (auto) 29.6 % (10.0-50.0); Mean Corpuscular Hemoglobin 29.1 pg (28.0-32.0); Mean Corpuscular Hgb Conc. 33.4 g/dL (32.0-36.0); Mean Corpuscular Volume 87.3 fL (80.0-100.0); Monocytes # (auto) 0.6 10 ^3/uL (0-1.3); Monocytes % (auto) 6.4 % (0.0-12.0); Neutrophils % (auto) 60.5 % (37.0-80.0); Platelet Count (auto) 379 10^3/uL (140-450); Red Blood Cells 3.33 10^6/uL (4.0-5.20); Red Cell Distribution Width 14.6 % (11.8-14.3); White Blood Cell 9.9 10^3/uL (4.4-10.8)
[2025-02-05 07:01] LABS: Chloride 105 mmol/L (98-107); Potassium 4.3 mmol/L (3.5-5.1)
[2025-02-05 07:02] LABS: Anion Gap 7 (5-15); Carbon Dioxide 21 mmol/L (20-31)
[2025-02-05 07:07] LABS: BUN/Creatinine Ratio 10.7 (10.0-20.0); Blood Urea Nitrogen 21 mg/dL (9-23)
[2025-02-05 07:08] LABS: Calcium 7.8 mg/dL (8.7-10.4); Glucose 289 mg/dL (74-106); Sodium 133 mmol/L (136-145)
[2025-02-05] MEDS: cefTRIAXone 1GM/50ML D5W 50 ML IV SCH (08:30)
[2025-02-05] MEDS: HYDROcodone-ACET 5/325MG TAB PO PRN (09:19)
[2025-02-05] MEDS: SPIRONOLACTONE 25 MG TAB PO SCH (11:13)
[2025-02-05] MEDS: amLODIPine BESYLATE 5 MG TAB PO SCH (11:14)
--- NOTE | 2025-02-05 14:10 | DVHPN2 ---
Subjective 49-year-old female comes with chief complaint of right flank pain and elevated blood sugar and a toothache Blood glucose was 426 on admission Hemoglobin A1c is more than 14 Changes from previous H/P or p: Changes Objective Vitals Vital Signs Date Time Temp Pulse Resp B/P (MAP) Pulse Ox O2 Delivery O2 Flow Rate FiO2 02/05/25 12:17 61 148/64 02/05/25 11:07 97.6 18 95 97.6 02/04/25 21:34 21 02/04/25 21:08 Room Air* 0 Intake/Output Intake and Output 02/05/25 07:00 Intake Total 2050 ml Balance 2050 ml Intake IV Total 2050 ml General Appearance: Alert, Oriented X3, Cooperative, No acute distress Lungs: Clear to auscultation, Normal air movement Cardiovascular: Regular rate, Normal S1, Normal S2 Abdomen: Normal bowel sounds, Soft, No tenderness Extremities: No edema Medications Current Medications Medications Dose Ordered Sig/Mariel Route Start Time Stop Time Status Last Admin Dose Admin Dextrose 50 ml PRN PRN IV 02/04/25 20:15 Atorvastatin Calcium 40 mg HS PO 02/04/25 22:00 Amlodipine Besylate 10 mg DAILY PO 02/05/25 10:00 02/05/25 11:14 10 MG Albuterol 2.5 mg Q6HPRN PRN NEB 02/04/25 21:30 Metoprolol Tartrate 50 mg BID PO 02/04/25 22:00 02/05/25 11:14 50 MG Spironolactone 25 mg DAILY PO 02/05/25 10:00 02/05/25 11:13 25 MG Diagnostic Test (Pha) 1 strip IQ4HR 02/05/25 00:00 02/05/25 12:16 1 STRIP Insulin Human Regular IQ4HR SC 02/05/25 00:00 02/05/25 12:21 4 UNITS Dextrose 50 ml UD PRN IV 02/04/25 21:30 Ondansetron HCl 4 mg Q4HP PRN IV 02/04/25 21:30 Acetaminophen 650 mg Q6HP PRN PO 02/04/25 21:30 02/05/25 03:27 650 MG Ceftriaxone Sodium 50 ml @ 100 mls/hr DAILY@09 IV 02/05/25 09:00 02/05/25 08:30 100 MLS/HR Acetaminophen/ Hydrocodone Bitart 1 tab Q8HPRN PRN PO 02/05/25 05:15 02/05/25 09:19 1 TAB Laboratory Results Laboratory Tests 02/05/25 05:34 Chemistry Test 02/04/25 19:00 02/05/25 05:34 Albumin 3.6 g/dL (3.2-4.8) Calcium Level 9.0 mg/dL (8.7-10.4) 7.8 mg/dL (8.7-10.4) L Magnesium Level 2.0 mg/dL (1.6-2.6) Total Protein 6.2 g/dL (5.7-8.2) LFT Test 02/04/25 19:00 Alanine Aminotransferase (ALT) 18 U/L (7-40) Alkaline Phosphatase 118 U/L (46-116) H Aspartate Amino Transferase (AST) 12 U/L (13-40) L Total Bilirubin 0.2 mg/dL (0.2-1.0) HgA1c, TSH Test 02/04/25 19:00 Hemoglobin A1c > 14.0 % A1C (<5.7) H Urinalysis Test 02/05/25 00:32 Urine Color Light-yellow (Yellow) Urine Clarity Clear (Clear) Urine pH 6.5 (5.0-9.0) Urine Specific [place] 1.017 (1.001-1.035) Urine Protein 3+ (Negative) H Urine Ketones Negative (Negative) Urine Blood 1+ /uL (Negative) H Urine Nitrite Negative (Negative) Urine Bilirubin Negative (Negative) Urine Urobilinogen Normal mg/dL (Negative) Urine Leukocyte Esterase Negative /uL (Negative) Urine RBC 2 /hpf (0 - 4) Urine Microscopic WBC 4 /HPF (0-5) Urine Squamous Epithelial Cells Few /hpf (<5) Urine Bacteria None seen /hpf (None Seen) Urine Yeast (Budding) Moderate /hpf (None Seen) Urine Glucose 4+ mg/dL (Normal) H Blood Gas Results Test 02/04/25 19:11 Arterial Blood pH 7.408 (7.350-7.450) FiO2 % 21.0 Assessment/Plan Assessment/Plan Uncontrolled diabetes Chronic kidney disease Hypertension Anemia Hyponatremia No UTI No diabetic ketoacidosis Plan Resume the home medications Lantus insulin Sliding scale insulin Monitor closely No UTI: Discontinue IV antibiotics Code Advance directives discussed for 18 minutes Plan discussed with: Patient Date of Service: February 05, 2025 Billing Provider: ZULY SAMANO MD Common Visit Codes: [id number] INP/OBS CARE(HIGH) Secondary Visit Codes: [id number] CARE PLAN 30 MINUTES ZULY SAMANO MD February 05, 2025 14:10
[2025-02-05] MEDS ORDERED: DEXTROSE (50%) 50ML SYRG IV PRN (14:15)
[2025-02-05 19:35] VITALS: O2SAT 96
[2025-02-05 20:18] VITALS: BP 145/76; PULSE 68; RESP 19; TEMP 98.2; O2SAT 98
[2025-02-05 21:00] VITALS: BP 145/76; PULSE 68; RESP 19; TEMP 98.2; O2SAT 98
[2025-02-05] MEDS ORDERED: GLIP10TA9 PO (21:17)
[2025-02-05] MEDS ORDERED: METF-370 PO (21:17)
[2025-02-06 05:00] VITALS: BP 146/75; PULSE 64; RESP 19; TEMP 98; O2SAT 100
[2025-02-06 06:41] LABS: Anion Gap 9 (5-15); Carbon Dioxide 20 mmol/L (20-31); Potassium 4.2 mmol/L (3.5-5.1)
[2025-02-06 06:42] VITALS: O2SAT 98
[2025-02-06 06:47] LABS: BUN/Creatinine Ratio 10.1 (10.0-20.0); Blood Urea Nitrogen 20 mg/dL (9-23); Chloride 107 mmol/L (98-107); Glucose 282 mg/dL (74-106); Magnesium 2.2 mg/dL (1.6-2.6); Sodium 136 mmol/L (136-145)
[2025-02-06 09:00] VITALS: BP 149/73; PULSE 63; RESP 16; TEMP 98.2; O2SAT 100
[2025-02-06 10:27] LABS: Hepatitis B Surface Antigen Negative (Negative); Hepatitis C Antibody Negative (Negative)
[2025-02-06] MEDS: INSULIN LANTUS (GLARGINE) 1 /0.01ml (100units/ml) SC ONE (12:00)
[2025-02-06 12:30] VITALS: BP 127/66; PULSE 59; RESP 17; TEMP 98.2; O2SAT 100
[2025-02-06] MEDS ORDERED: CLIN300C2 PO (14:15)
[2025-02-06] MEDS ORDERED: HYDR-4902 PO (14:17)
--- NOTE | 2025-02-06 14:21 | DVHDS2 ---
Discharge Summary Date of Admission February 04, 2025 at 21:21 Date of Discharge: February 06, 2025 Labs/Diagnostic Data: Laboratory Results Test 02/06/25 11:36 02/06/25 05:45 02/05/25 05:34 02/05/25 00:32 POC Glucose 248 mg/dl (70-106) Sodium Level 136 mmol/L (136-145) Potassium Level 4.2 mmol/L (3.5-5.1) Chloride Level 107 mmol/L (98-107) Carbon Dioxide Level 20 mmol/L (20-31) Anion Gap 9 (5-15) Blood Urea Nitrogen 20 mg/dL (9-23) Creatinine 1.98 mg/dL (0.550-1.02) Glomerular Filtration Rate Calc 30 mL/min (>90) BUN/Creatinine Ratio 10.1 (10.0-20.0) Serum Glucose 282 mg/dL (74-106) Calcium Level 8.0 mg/dL (8.7-10.4) Magnesium Level 2.2 mg/dL (1.6-2.6) Hepatitis B Surface Antigen Negative (Negative) Hepatitis C Antibody Negative (Negative) White Blood Count 9.9 10^3/uL (4.4-10.8) Red Blood Count 3.33 10^6/uL (4.0-5.20) Hemoglobin 9.7 g/dL (12.2-16.2) Hematocrit 29.0 % (36.0-46.0) Mean Corpuscular Volume 87.3 fL (80.0-100.0) Mean Corpuscular Hemoglobin 29.1 pg (28.0-32.0) Mean Corpuscular Hemoglobin Concent 33.4 g/dL (32.0-36.0) Red Cell Distribution Width 14.6 % (11.8-14.3) Platelet Count 379 10^3/uL (140-450) Mean Platelet Volume 9.4 fL (6.9-10.8) Neutrophils (%) (Auto) 60.5 % (37.0-80.0) Lymphocytes (%) (Auto) 29.6 % (10.0-50.0) Monocytes (%) (Auto) 6.4 % (0.0-12.0) Eosinophils (%) (Auto) 2.8 % (0.0-7.0) Basophils (%) (Auto) 0.7 % (0.0-2.0) Neutrophils # (Auto) 6.0 10 ^3/uL (1.6-8.6) Lymphocytes # (Auto) 2.9 10 ^3/uL (0.4-5.4) Monocytes # (Auto) 0.6 10 ^3/uL (0-1.3) Eosinophils # (Auto) 0.3 10 ^3/uL (0-0.8) Basophils # (Auto) 0.1 10 ^3/uL (0-0.2) Nucleated Red Blood Cells 0.0 % Urine Color Light-yellow (Yellow) Urine Clarity Clear (Clear) Urine pH 6.5 (5.0-9.0) Urine Specific [place] 1.017 (1.001-1.035) Urine Protein 3+ (Negative) Urine Ketones Negative (Negative) Urine Blood 1+ /uL (Negative) Urine Nitrite Negative (Negative) Urine Bilirubin Negative (Negative) Urine Urobilinogen Normal mg/dL (Negative) Urine Leukocyte Esterase Negative /uL (Negative) Urine RBC 2 /hpf (0 - 4) Urine Microscopic WBC 4 /HPF (0-5) Urine Squamous Epithelial Cells Few /hpf (<5) Urine Bacteria None seen /hpf (None Seen) Urine Yeast (Budding) Moderate /hpf (None Seen) Urine Glucose 4+ mg/dL (Normal) Test 02/04/25 19:11 02/04/25 19:00 Blood Gas Specimen Type Arterial Blood Gas Sample Site Right radial Blood Gas Patient Temperature 37.0 Arterial Blood Date Drawn [id number] Arterial Blood pH 7.408 (7.350-7.450) Arterial Blood Partial Pressure CO2 29.9 mmHg (32.0-45.0) Arterial Blood Partial Pressure O2 74.0 mmHg (83.0-108.0) Arterial Blood HCO3 18.4 mmol/L (21.0-28.0) Arterial Blood Oxygen Saturation 95.6 % (94.0-98.0) Arterial Blood Base Excess -5.2 mmol/L (-2.0-3.0) Arterial Blood Oxyhemoglobin 95.0 % (94.0-98.0) Arterial Blood Carboxyhemoglobin 0.3 % (0.5-1.5) Arterial Blood Methemoglobin 0.3 % (0.0-1.5) Raymond Test Yes Blood Gas Total Hemoglobin 10.70 g/dL (12.0-16.0) Blood Gas Modality Room air FiO2 % 21.0 Hemoglobin A1c > 14.0 % A1C (<5.7) Total Bilirubin 0.2 mg/dL (0.2-1.0) Aspartate Amino Transferase (AST) 12 U/L (13-40) Alanine Aminotransferase (ALT) 18 U/L (7-40) Alkaline Phosphatase 118 U/L (46-116) Total Protein 6.2 g/dL (5.7-8.2) Albumin 3.6 g/dL (3.2-4.8) Beta-Hydroxybutyric Acid 0.090 mmol/L (< 0.4) Other Laboratory Tests 02/06/25 05:45 02/05/25 05:34 Brief Hx & Hospital Course: Final diagnoses: Uncontrolled diabetes Chronic kidney disease Hypertension Anemia Hyponatremia No UTI No diabetic ketoacidosis Toothache 49-year-old female comes with chief complaint of right flank pain and elevated blood sugar and a toothache Blood glucose was 426 on admission Hemoglobin A1c is more than 14 She was admitted overnight and was started on insulin for a blood glucose on admission that was at 4:26 a.m. and a hemoglobin A1c that was more than 14 Overnight her blood glucose now is ranging between 203 100 She is asymptomatic except for the toothache UA showed no UTI The patient is stable for discharge Discharged home on clindamycin for 10 days and Media p.r.n. for the pain She was instructed to increase her Lantus to 27 units twice a day and wait 3 days and if it is still high then to increase to 30 units twice a day and resume other home medications Follow up with her dentist as soon as possible Condition at Discharge: Stable Final Diagnosis/Problems List Uncontrolled diabetes Chronic kidney disease Hypertension Anemia Hyponatremia No UTI No diabetic ketoacidosis Discharge Disposition: Home SNF Discharge Will this Physician continue t: No Discharge Statement: "Patient was advised to return to the ER or call 911 if any headaches, dizziness, shortness of breath, chest pain, abdominal pain, bleeding, fevers, or worsening of medical condition. Patient was counseled about treatment plan, medications, possible side effects, patientverbalized understanding. All questions were answered to the best of my ability. This discharge took greater then 30 minutes in planning, reviewing documentation, counseling the patient, and discussing with other team members." ASSESSMENT ASSESSMENT Assessment Date of Service: February 06, 2025 Billing Provider: ZULY SAMANO MD Common Visit Codes: [id number] DISCH DAY >30min ZULY SAMANO MD February 06, 2025 14:21
[2025-02-06] MEDS ORDERED: INSULIN LANTUS (GLARGINE) 1 /0.01ml (100units/ml) SC SCH (22:00)
== END 2025-02-07 15:20 | disposition home or self-care (01) | DRG 420 ==
LOC: ER 17:56 → OVERFLOW 21:21
PROVIDERS: ADMIT Internal Medicine Geriatric Medicine; ATTEND Internal Medicine Geriatric Medicine
DX: E11.65 Type 2 diabetes mellitus with hyperglycemia (principal); E11.22 Type 2 diabetes mellitus with diabetic chronic kidney disease; I13.0 Hypertensive heart and chronic kidney disease with heart failure and stage 1 through stage 4 chronic kidney disease, or unspecified chronic kidney disease; I50.9 Heart failure, unspecified; D64.9 Anemia, unspecified; E87.1 Hypo-osmolality and hyponatremia; E66.9 Obesity, unspecified; N18.9 Chronic kidney disease, unspecified; Z68.32 Body mass index [BMI] 32.0-32.9, adult; K08.89 Other specified disorders of teeth and supporting structures; E78.5 Hyperlipidemia, unspecified; F17.210 Nicotine dependence, cigarettes, uncomplicated; Z87.442 Personal history of urinary calculi; I25.2 Old myocardial infarction; Z90.49 Acquired absence of other specified parts of digestive tract; Z88.5 Allergy status to narcotic agent
CPT/HCPCS: 36415; 36600; 80048; 80053; 81001; 82010; 82805; 82962; 83036; 83735; 85025; 86803; 87081; 87340; G0378; J1815; J1885

== ENCOUNTER 2025-04-15 20:05 | Inpatient (IN) | payer MEDICAID ==
[~2025-04-15] VITALS: Ht 154.9 cm; Wt 82.0 kg
[~2025-04-15 20:05] MED LIST changes: +CLIN300C2 PO; +GLIP10TA9 PO; +HYDR-4902 PO; -IBU600T PO; +METF-370 PO
[2025-04-15 21:38] LABS: Mean Corpuscular Hemoglobin 29.3 pg (28.0-32.0)
[2025-04-15 21:40] LABS: Hematocrit 31.0 % (36.0-46.0); Hemoglobin 10.3 g/dL (12.2-16.2); Mean Corpuscular Volume 88.6 fL (80.0-100.0); Nucleated Red Blood Cells % 0.1 %
[2025-04-15 22:16] LABS: Alanine Aminotransferase 15 U/L (7-40); Albumin 3.6 g/dL (3.2-4.8); Alkaline Phosphatase 115 U/L (46-116); Anion Gap 8 (5-15); BUN/Creatinine Ratio 9.4 (10.0-20.0); Blood Urea Nitrogen 23 mg/dL (9-23); Calcium 9.3 mg/dL (8.7-10.4); Carbon Dioxide 22 mmol/L (20-31); Chloride 103 mmol/L (98-107); Potassium 3.6 mmol/L (3.5-5.1); Total Protein 6.0 g/dL (5.7-8.2)
[2025-04-15 22:18] LABS: Bilirubin, Total < 0.2 mg/dL (0.2-1.0); Glucose 361 mg/dL (74-106); Sodium 133 mmol/L (136-145)
--- NOTE | 2025-04-15 23:52 | ED.PDOC ---
History of Present Illness(SKN HPI Comments 49-YEAR-OLD DIABETIC FEMALE PRESENTS TO ED FOR CC OF HIGH GLUCOSE LEVELS AND "INSECT BITE" TO R FACE. PT REPORTS GLUCOSE READS IN THE "600'S" AT HOME. REPORTS SHE TAKES INSULIN AT HOME. CURRENT ACCUCHECK READS 318 MG/DL. DENIES CHEST PAIN, DIFFICULTY BREATHING, SHORTNESS OF BREATH, NAUSEA, VOMITING, FEVER OR CHILLS. Chief Complaint: Hyperglycemia Time Seen by MD: 20:11 Primary Care Provider: unknown History of Present Illness: Nurses Notes, Medications, Allergies Allergies: Coded Allergies: Codeine (Verified Allergy, Unknown, 03/20/19) Home Meds Active Scripts Hydrocodone-Acetaminophen (Hydrocodone Bitartrate/AC 5-325 mg) 1 Tab Tab, 1 TAB PO Q6HP PRN, #15 TAB Prov:ZULY SAMANO MD 02/06/25 Clindamycin Hcl (Cleocin) 300 Mg Cap, 300 MG PO Q8HP PRN, #30 CAP Prov:ZULY SAAMNO MD 02/06/25 Hydrocodone-Acetaminophen (Hydrocodone Bitartrate/AC 10-325 mg) 1 Tab Tab, 1 TAB PO QID PRN, #30 TAB Prov:AZIZA GARCIA MD 12/14/24 Albuterol Sulfate (VENTOLIN MDI) 90 Mcg Ih, 90 MCG IN TID for 5 Days, #1 INH Prov:PARISH JENSEN RESIDENT 10/26/24 Guaifenesin (Guaifenesin) 100 Mg/5 Ml Syp, 200 MG PO Q6HP PRN for 5 Days, #1 UNIT Prov:PARISH JENSEN RESIDENT 10/26/24 Ferrous Sulfate (Ferrous Sulfate) 325 Mg Tab, 325 MG PO DAILY for 30 Days, #30 TAB 2 Refills Prov:ANDREA JOSHUA RESIDENT 04/07/24 Reported Medications Glipizide (Glipizide) 10 Mg Tab, 10 MG PO BID for 30 Days, MG 02/05/25 Metformin Hydrochloride (Metformin Hcl) 500 Mg Tab, 500 MG PO IBID for 30 Days, MG 02/05/25 Insulin Lispro (Insulin Lispro Kwikpen) 100 Unit/Ml Inj, UNIT SC TID for 42 Days, #15 INJECT SUBCUTANEOUSLY 3 TIMES DAILY BEFORE MEAL(S) PER SLIDING SCALE DIRECTED. MAX 36 UNITS/DAY. 10/24/24 Spironolactone (Spironolactone) 25 Mg Tab, 1 TAB PO DAILY for 30 Days, #30 09/04/24 Amlodipine Besylate (Amlodipine Besylate) 10 Mg Tab, 1 TAB PO DAILY for 90 Days, #90 09/04/24 Pantoprazole Sodium Sesquihydr (Protonix) 40 Mg Tab, 1 TAB PO DAILY for 90 Days, #90 09/04/24 Metoprolol Tartrate (Metoprolol Tartrate) 50 Mg Tab, 1 TAB PO BID for 60 Days, #120 09/04/24 Metoclopramide Hcl (Metoclopramide Hcl) 5 Mg Tab, 1 TAB PO TID for 90 Days, #270 09/04/24 Insulin Glargine (Insulin Glargine) 100 Unit/Ml Marly, 46 UNIT SC QPM for 32 Days, #15 09/04/24 Gabapentin (Gabapentin) 100 Mg Cap, 400 MG PO BID for 90 Days, #180 09/04/24 Furosemide (Furosemide) 40 Mg Tab, 1 TAB PO DAILY for 90 Days, #90 09/04/24 Empagliflozin (Jardiance) 10 Mg Tab, 1 TAB PO DAILY for 90 Days, #90 09/04/24 Atorvastatin Calcium (Lipitor) 40 Mg Tab, 1 TAB PO DAILY for 90 Days, #90 09/04/24 Aspirin (Aspirin Low Dose) 81 Mg Chw, 1 TAB PO DAILY for 90 Days, #90 09/04/24 Mode of Arrival: Ambulatory Past Medical History PAST MEDICAL HISTORY: CHF, CKF, DM, HTN, Kidney Stones, [place] Surgical History: Appendectomy, Cholecystectomy, ACADEMIC RECORDS SPECIALIST History: No Pertinent ACADEMIC RECORDS SPECIALIST History Family History Family History: Unknown Social History Smoker: Cigarettes, Less Than 1 Pack/Day Alcohol: Heavy Drugs: Marijuana Lives In: Home Constitutional: denies: chills, diaphoresis, fatigue, fever, malaise, sweats, weakness, others EENTM: denies: blurred vision, double vision, ear bleeding, ear discharge, ear drainage, ear pain, ear ringing, eye pain, eye redness, hearing loss, mouth pain, mouth swelling, nasal discharge, nose bleeding, nose congestion, nose pain, photophobia, tearing, throat pain, throat swelling, voice changes, others Respiratory: denies: cough, hemoptysis, orthopnea, SOB at rest, shortness of breath, SOB with excertion, stridor, wheezing, others Cardiovascular: denies: chest pain, dizzy spells, diaphoresis, Dyspnea on exertion, edema, irregular heart beat, left arm pain, lightheadedness, palpit ations, PND, syncope, others Gastrointestinal: denies: abdomen distended, abdominal pain, blood streaked b owels, constipated, diarrhea, dysphagia, difficulty swallowing, hematemesis, melena, nausea, poor appetite, poor fluid intake, rectal bleeding, rectal pain, vomiting, others Genitourinary: denies: abnormal vagina bleeding, burning, dyspareunia, dysuria, flank pain, frequency, hematuria, incontinence, pain, , vagina discharge, urgency, others Neurological: denies: dizziness, fainting, headache, left sided numbness, left sided weakness, numbness, paresthesia, pre-existing deficit, right sided numbness, right sided weakness, seizure, speech problems, tingling, tremors, weakness, others Musculoskeletal: denies: back pain, gout, joint pain, joint swelling, muscle pain, muscle stiffness, neck pain, others Integumetry: reports: wounds (RIGHT SIDE OF FACE); denies: bruises, change in color, change in hair/nails, dryness, laceration, lesions, lumps, rash, others Allergic/Immunocompromised: denies: Difficulty Healing, Frequent Infections, Hives, Itching, others Hematologic/Lymphatic: denies: anemia, blood clots, easy bleeding, easy bruising, swollen glands, others Endocrine: denies: excessive hunger, excessive sweating, excessive thirst, excessive urination, flushing, intolerance to cold, intolerance to heat, unexpl ained weight gain, unexplained weight loss, others Psychiatric: denies: anxiety, bipolar disorder, depression, hopeless, panic disorder, schizophrenia, sleepless, suicidal, others Physical Exam General Appearance: No Apparent Distress, Normal HEENT: Normal ENT Inspection, Pharynx Normal, TMs Normal Neck: Full Range of Motion, Non-Tender Respiratory: Lungs Clear, No Respiratory Distress, Normal Breath Sounds Cardiovascular: No Edema, No JVD, No Murmur, No Gallop, Normal Peripheral Pulses, Regular Rate/Rhythm Breast Exam: Deferred Gastrointestinal: No Organomegaly, Non Tender, No Pulsatile Mass, Normal Bowel Sounds, Soft Genitalia: Deferred Pelvic: Deferred Rectal: Deferred Extremities: Normal capillary refill, Normal inspection, Normal range of motion, Non-tender, No pedal edema Musculoskeletal : Apperance: Normal Neurologic: Alert, No Motor Deficits, Normal Affect, Normal Mood, No Sensory Deficits Cerebellar Function: Normal Reflexes: Normal Skin: Dry, Normal Color, Warm, Wounds (NON FLUCTUANT LESION RIGHT SIDE OF FACE TEMPORAL AREA WITH MODERATE AMOUNT OF ERYTHEMA AND TENDERNESS NO NOTED DRAINAGE OR STREAKING.) Lymphatic: No Adenopathy Was a procedure done? Was a procedure done?: No Differential Diagnosis (INTG) Differential Diagnosis: Cellulitis, Hematoma, Insect Envenomation, Puncture W ound Differential Diagnosis: Abscess X-Ray, Labs, Meds, VS Vital Signs Date Time Temp Pulse Resp B/P (MAP) Pulse Ox O2 Delivery O2 Flow Rate FiO2 04/15/25 20:05 98.1 68 18 145/61 (89) 98 98.1 Lab Test 04/15/25 21:14 04/15/25 20:21 Range/Units White Blood Count 12.3 H 4.4-10.8 10^3/uL Red Blood Count 3.50 L 4.0-5.20 10^6/uL Hemoglobin 10.3 L 12.2-16.2 g/dL Hematocrit 31.0 L 36.0-46.0 % Mean Corpuscular Volume 88.6 80.0-100.0 fL Mean Corpuscular Hemoglobin 29.3 28.0-32.0 pg Mean Corpuscular Hemoglobin Concent 33.1 32.0-36.0 g/dL Red Cell Distribution Width 15.0 H 11.8-14.3 % Platelet Count 452 H 140-450 10^3/uL Mean Platelet Volume 9.2 6.9-10.8 fL Neutrophils (%) (Auto) 70.6 37.0-80.0 % Lymphocytes (%) (Auto) 20.5 10.0-50.0 % Monocytes (%) (Auto) 5.9 0.0-12.0 % Eosinophils (%) (Auto) 2.6 0.0-7.0 % Basophils (%) (Auto) 0.4 0.0-2.0 % Neutrophils # (Auto) 8.7 H 1.6-8.6 10 ^3/uL Lymphocytes # (Auto) 2.5 0.4-5.4 10 ^3/uL Monocytes # (Auto) 0.7 0-1.3 10 ^3/uL Eosinophils # (Auto) 0.3 0-0.8 10 ^3/uL Basophils # (Auto) 0.1 0-0.2 10 ^3/uL Nucleated Red Blood Cells 0.1 % Sodium Level 133 L 136-145 mmol/L Potassium Level 3.6 3.5-5.1 mmol/L Chloride Level 103 98-107 mmol/L Carbon Dioxide Level 22 20-31 mmol/L Anion Gap 8 5-15 Blood Urea Nitrogen 23 9-23 mg/dL Creatinine 2.44 H 0.550-1.02 mg/dL Glomerular Filtration Rate Calc 24 >90 mL/min BUN/Creatinine Ratio 9.4 L 10.0-20.0 Serum Glucose 361 H 74-106 mg/dL Lactic Acid Level 1.2 0.4-2.0 mmol/L Calcium Level 9.3 8.7-10.4 mg/dL Total Bilirubin < 0.2 L 0.2-1.0 mg/dL Aspartate Amino Transferase (AST) 14 13-40 U/L Alanine Aminotransferase (ALT) 15 7-40 U/L Alkaline Phosphatase 115 46-116 U/L B-Type Natriuretic Peptide 53.65 0-100 pg/mL Total Protein 6.0 5.7-8.2 g/dL Albumin 3.6 3.2-4.8 g/dL POC Glucose 318 H 70-106 mg/dl Current Medications Medications (Trade) Dose Ordered Sig/Mariel Route Start Time Stop Time Status Last Admin Sodium Chloride 1,000 ml @ 100 mls/hr Q10H ONCE IV 04/15/25 21:00 04/16/25 06:59 04/16/25 01:42 X-Ray, Labs, Meds, VS Comment COURSE: EXTERNAL MEDICAL RECORDS: NONE INDEPENDENT HISTORIANS: NONE SOCIAL DETERMINANTS OF HEALTH: NONE LABS ORDERED: BC, CMP, UA, BNP, lactic acid, blood cultures REVIEWED AND INTERPRETED RESULTS: UA pending Lactic acid within normal limits BNP within normal limits Blood cultures drawn CBC: > WBC | 12.3 | H | 4.4-10.8 10^3/uL > NEUT% (auto) | 70.6 | | 37.0-80.0 % > LYMPH % (auto) | 20.5 | | 10.0-50.0 % > MONO% (auto) | 5.9 | | 0.0-12.0 % > EOS% (auto) | 2.6 | | 0.0-7.0 % > BASO% (auto) | 0.4 | | 0.0-2.0 % > NRBC | 0.1 | | % > Neut# (auto) | 8.7 | H | 1.6-8.6 10 ^3/uL > LYMPH# (AUTO) | 2.5 | | 0.4-5.4 10 ^3/uL > MONO# (AUTO) | 0.7 | | 0-1.3 10 ^3/uL > EOS# (AUTO) | 0.3 | | 0-0.8 10 ^3/uL > BASO# (AUTO) | 0.1 | | 0-0.2 10 ^3/uL > RBC | 3.50 | L | 4.0-5.20 10^6/uL > HGB | 10.3 | L | 12.2-16.2 g/dL > HCT | 31.0 | L | 36.0-46.0 % > MCV | 88.6 | | 80.0-100.0 fL > MCH | 29.3 | | 28.0-32.0 pg > MCHC | 33.1 | | 32.0-36.0 g/dL > RDW | 15.0 | H | 11.8-14.3 % > PLT | 452 | H | 140-450 10^3/uL > MPV | 9.2 | | 6.9-10.8 f CMP: NA | 133 | L | 136-145 mmol/L | Low > K | 3.6 | | 3.5-5.1 mmol/L > CL | 103 | | 98-107 mmol/L > CO2 | 22 | | 20-31 mmol/L > ANION GAP | 8 | | 5-15 > GLU | 361 | H | 74-106 mg/dL | High > BUN | 23 | | 9-23 mg/dL > SCREAT | 2.44 | H | 0.550-1.02 mg/dL | High > ALK PHOS | 115 | | 46-116 U/L > AST/SGOT | 14 | | 13-40 U/L > ALT/SGPT | 15 | | 7-40 U/L > Calcium | 9.3 | | 8.7-10.4 mg/dL > TOTAL BILI | < 0.2 | L | 0.2-1.0 mg/dL > ALB | 3.6 | | 3.2-4.8 g/dL > BUN/CREAT RATIO | 9.4 | L | 10.0-20.0 > GFR | 24 | | >90 mL/mi IMAGING ORDERED: NONE TREATMENTS ORDERED: Rocephin 1 g IV piggyback Insulin 10 units IV push Normal saline 1000 mL at 100 mL/hour PLAN: Patient placed for hospitalist for admission DX: Facial abscess and cellulitis with infection Stage III kidney failure Diabetes type 2 with hyperglycemia Time of 1ST Reevaluation: 20:11 Reevaluation 1ST: Unchanged Time of 2ND Reevaluation: 23:52 Reevaluation 2ND: Unchanged Patient Education/Counseling: Diagnosis, Treatment Family Education/Counseling: Diagnosis, Treatment, Prognosis, Need For Follow Up SEPSIS Sepsis Screen Date sepsis recognized/suspect: Apr 15, 2025 Time Sepsis recognized/suspect: 2004 Recent Procedure: No On Antibiotic Therapy: No Respiratory Rate >20: No Heart Rate >90: No Temp<36 C (96.8 F) or >38.3 C: No SBP <90 or MAP <65 mmHG: No New Acute Mental Status Change: No Is the patient on CPAP, BIPAP,: No Physician Orders Urinalysis (04/15/25 20:49) Blood Culture (04/15/25 20:49) Heplock Iv (04/15/25 ) Sodium Chloride 0.9% (04/15/25 21:00) Blood Glucose Q2h (04/15/25 21:32) Vital Signs Date Time Temp Pulse Resp B/P (MAP) Pulse Ox O2 Delivery O2 Flow Rate FiO2 04/15/25 20:05 98.1 68 18 145/61 (89) 98 98.1 Laboratory Tests Test 04/15/25 21:14 Lactic Acid Level 1.2 mmol/L (0.4-2.0) White Blood Count 12.3 10^3/uL (4.4-10.8) H Medications Medications Dose Ordered Sig/Mariel Route Start Time Stop Time Status Last Admin Dose Admin Sodium Chloride 1,000 ml @ 100 mls/hr Q10H ONCE IV 04/15/25 21:00 04/16/25 06:59 04/16/25 01:42 Departure 1 Departure Time of Disposition: 23:59 Impression: Primary Impression: Cellulitis and abscess of face Additional Impressions: Diabetes mellitus with hyperglycemia Qualified Codes: E11.65 - Type 2 diabetes mellitus with hyperglycemia; 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
[2025-04-16] VITALS (8 sets, daily range): BP systolic 121–157; BP diastolic 56–88; PULSE 64–77; RESP 16–20; TEMP 97.3–98.1; O2SAT 95–98
[2025-04-16] MEDS ORDERED: ONDANSETRON HCL 4 MG/2 ML VIAL IV PRN (00:45)
[2025-04-16] MEDS ORDERED: DEXTROSE (50%) 50ML SYRG IV PRN (00:45)
--- NOTE | 2025-04-16 00:50 | DVHHP2 ---
History of Present Illness Reason for Visit: Facial pain History of Present Illness [id number] female presents for evaluation of facial pain. The patient reports being bitten by an insect three days ago on the right side of her face. She reports mild swelling with pain. She also states her blood sugars has been out of control since then. She states her blood sugars reached 600 today. Reports intermittent chills. No nausea or vomiting. No other acute complaints. Past Medical History Diabetes mellitus, CHF, chronic kidney disease, hypertension, mi Past Surgical History Cholecystectomy, and appendectomy Family History Noncontributory Smoke: <1 pack per day ALCOHOL: heavy Drugs: None, Marijuana Review of Systems Review of Systems Review of systems are currently negative otherwise addressed in HPI. Allergies: Coded Allergies: Codeine (Verified Allergy, Unknown, 03/20/19) Exam Vital Signs Vital Signs Date Time Temp Pulse Resp B/P (MAP) Pulse Ox O2 Delivery O2 Flow Rate FiO2 04/15/25 20:05 98.1 68 18 145/61 (89) 98 98.1 Exam Gen: 49-year-old female in mild distress. Skin: Warm, dry, normal color and texture, no rash. HEENT: Normocephalic atraumatic, mucous membranes moist and pink, mild right facial swelling Neck: Cervical and supraclavicular nodes normal without enlargement, trachea is midline, thyroid gland is normal without masses. Pulmonary: Clear to auscultation and percussion bilaterally. Cardiac: Regular rate and rhythm. No murmur Abdomen: Soft, nontender, nondistended, bowel sounds present all 4 quadrants, no guarding, no rigidity, no organomegaly. Extremities: No cyanosis, clubbing, no edema Neuro: Cranial nerves II through XII grossly intact, normal affect and speech, no focal motor deficits. Labs/Xrays Labs Test 04/15/25 21:14 04/15/25 20:21 Range/Units White Blood Count 12.3 H 4.4-10.8 10^3/uL Red Blood Count 3.50 L 4.0-5.20 10^6/uL Hemoglobin 10.3 L 12.2-16.2 g/dL Hematocrit 31.0 L 36.0-46.0 % Mean Corpuscular Volume 88.6 80.0-100.0 fL Mean Corpuscular Hemoglobin 29.3 28.0-32.0 pg Mean Corpuscular Hemoglobin Concent 33.1 32.0-36.0 g/dL Red Cell Distribution Width 15.0 H 11.8-14.3 % Platelet Count 452 H 140-450 10^3/uL Mean Platelet Volume 9.2 6.9-10.8 fL Neutrophils (%) (Auto) 70.6 37.0-80.0 % Lymphocytes (%) (Auto) 20.5 10.0-50.0 % Monocytes (%) (Auto) 5.9 0.0-12.0 % Eosinophils (%) (Auto) 2.6 0.0-7.0 % Basophils (%) (Auto) 0.4 0.0-2.0 % Neutrophils # (Auto) 8.7 H 1.6-8.6 10 ^3/uL Lymphocytes # (Auto) 2.5 0.4-5.4 10 ^3/uL Monocytes # (Auto) 0.7 0-1.3 10 ^3/uL Eosinophils # (Auto) 0.3 0-0.8 10 ^3/uL Basophils # (Auto) 0.1 0-0.2 10 ^3/uL Nucleated Red Blood Cells 0.1 % Sodium Level 133 L 136-145 mmol/L Potassium Level 3.6 3.5-5.1 mmol/L Chloride Level 103 98-107 mmol/L Carbon Dioxide Level 22 20-31 mmol/L Anion Gap 8 5-15 Blood Urea Nitrogen 23 9-23 mg/dL Creatinine 2.44 H 0.550-1.02 mg/dL Glomerular Filtration Rate Calc 24 >90 mL/min BUN/Creatinine Ratio 9.4 L 10.0-20.0 Serum Glucose 361 H 74-106 mg/dL Lactic Acid Level 1.2 0.4-2.0 mmol/L Calcium Level 9.3 8.7-10.4 mg/dL Total Bilirubin < 0.2 L 0.2-1.0 mg/dL Aspartate Amino Transferase (AST) 14 13-40 U/L Alanine Aminotransferase (ALT) 15 7-40 U/L Alkaline Phosphatase 115 46-116 U/L B-Type Natriuretic Peptide 53.65 0-100 pg/mL Total Protein 6.0 5.7-8.2 g/dL Albumin 3.6 3.2-4.8 g/dL POC Glucose 318 H 70-106 mg/dl SEPSIS Sepsis Screen Date sepsis recognized/suspect: Apr 15, 2025 Time Sepsis recognized/suspect: 2004 Recent Procedure: No On Antibiotic Therapy: No Respiratory Rate >20: No Heart Rate >90: No Temp<36 C (96.8 F) or >38.3 C: No SBP <90 or MAP <65 mmHG: No New Acute Mental Status Change: No Is the patient on CPAP, BIPAP,: No Physician Orders Urinalysis (04/15/25 20:49) Blood Culture (04/15/25 20:49) Heplock Iv (04/15/25 ) Sodium Chloride 0.9% (04/15/25 21:00) Blood Glucose Q2h (04/15/25 21:32) Ceftriaxone Ivpb Rocephin (04/16/25 09:00) Furosemide Tablet (Lasix Tablet) (04/16/25 10:00) Empagliflozin (Jardiance) (04/16/25 10:00) Amlodipine Tablet (Norvasc Tablet) (04/16/25 10:00) Gabapentin Capsule (Neurontin Capsule) (04/16/25 10:00) Atorvastatin (Lipitor) (04/16/25 22:00) Tramadol Hcl (Ultram) (04/16/25 00:45) Basic Metabolic Panel (04/17/25 04:00) Glucose Blood (Accu-Chek Comfort Curve T (04/16/25 04:00) Mild Sliding Scale (04/16/25 04:00) Dextrose 50% Syringe (04/16/25 00:45) Admit (04/16/25 00:39) Ondansetron Hcl (Zofran) (04/16/25 00:45) Complete Blood Count (04/17/25 04:00) Cardiac Diet-2gna,Lofat,Lochol (04/16/25 Breakfast) Condition: Stable (04/16/25 00:39) Acetaminophen Tablet (Tylenol Tablet) (04/16/25 00:45) Bedrest With Bathroom Privileg (04/16/25 00:39) Vital Signs Date Time Temp Pulse Resp B/P (MAP) Pulse Ox O2 Delivery O2 Flow Rate FiO2 04/15/25 20:05 98.1 68 18 145/61 (89) 98 98.1 Laboratory Tests Test 04/15/25 21:14 Lactic Acid Level 1.2 mmol/L (0.4-2.0) White Blood Count 12.3 10^3/uL (4.4-10.8) H Assessment/Plan Assessment/Plan Assessment Uncontrolled diabetes mellitus Right facial cellulitis Chronic kidney disease Congestive heart failure Plan Admit the patient to [facility] surge to the hospitalist Rocephin Blood cultures pending Q.4 hour Accu-Cheks with moderate coverage Resume home medications Continue treatment per orders. Plan discussed with: Patient My Orders Orders - STACIE SHRESTHA Procedure Category Date Status Time Ceftriaxone Ivpb PHA 04/16/25 Verified Rocephin 09:00 Furosemide Tablet PHA 04/16/25 Verified (Lasix Tablet) 10:00 Empagliflozin PHA 04/16/25 Verified (Jardiance) 10:00 Amlodipine Tablet PHA 04/16/25 Verified (Norvasc Tablet) 10:00 Gabapentin Capsule PHA 04/16/25 Verified (Neurontin Capsule) 10:00 Atorvastatin (Lipitor) PHA 04/16/25 Verified 22:00 Tramadol Hcl (Ultram) PHA 04/16/25 Verified 00:45 Basic Metabolic Panel LAB 04/17/25 Verified 04:00 Glucose Blood PHA 04/16/25 Verified (Accu-Chek Comfort 04:00 Mild Sliding Scale PHA 04/16/25 Verified 04:00 Dextrose 50% Syringe PHA 04/16/25 Verified 00:45 Admit ADMIT 04/16/25 Verified 00:39 Ondansetron Hcl PHA 04/16/25 Verified (Zofran) 00:45 Complete Blood Count LAB 04/17/25 Verified 04:00 Cardiac DIET 04/16/25 Verified Diet-2gna,Lofat,Lochol Breakfast Condition: Stable VELMA 04/16/25 Verified 00:39 Acetaminophen Tablet PHA 04/16/25 Verified (Tylenol Tablet) 00:45 Bedrest With Bathroom VELMA 04/16/25 Verified Privileg 00:39 Date of Service: Apr 16, 2025 Billing Provider: STACIE SHRESTHA Common Visit Codes: [id number] INP/OBS CARE (MOD) STACIE SHRESTHA Apr 16, 2025 00:50
[2025-04-16] MEDS: SODIUM CHLORIDE 0.9% 1,000 ML IV ONE (01:42)
[2025-04-16 01:49] LABS: Urine Protein, UAD 2+ (Negative)
[2025-04-16] MEDS: InsuLIN REG 1unit/0.01ml Soln (100units/ml) IV ONE (01:49)
[2025-04-16] MEDS: cefTRIAXone 1GM/50ML D5W 50 ML IV ONE (02:00)
[2025-04-16] MEDS: diphenhdrAMINE HCL 50 MG/1 ML VL IV ONE (02:08)
[2025-04-16] MEDS: ACCU-CHEK COMFORT CURVE STRIP VI SCH (06:18)
[2025-04-16] MEDS: InsuLIN REG 1unit/0.01ml Soln (100units/ml) SC SCH (06:19)
[2025-04-16] MEDS: GABAPENTIN 400 MG CAP PO SCH (10:09)
[2025-04-16] MEDS: EMPAGLIFLOZIN 10 MG TAB PO SCH (10:09)
[2025-04-16] MEDS: FUROSEMIDE 40 MG TAB PO SCH (10:10)
--- NOTE | 2025-04-16 14:01 | DVHPNRES ---
Progress Note Date Seen: Apr 16, 2025 Resident Creating Document: GARY MOROCHO RESIDENT Medical Necessity Reason Pt with a Central, PICC or Fol: No Subjective Review of Systems Patient is a 49 year old female with prior medical history of type 2 DM, CHF, CKD, hyperlipidemia, peripheral neuropathy, gastritis, and PUD, who presented to the ED with chief complaint of face pain. The patient states she woke up with the pain approximately 3 days ago and believes she was bitten by an insect in her sleep. Patient describes the pain as pulsatile, radiating from the wound on her right preauricular area to her jaw and towards her eyes, intensity 10/10, for which she took Tylenol with minimal relief. Associated with pulsatile headache, eye pain, decreased appetite, chills, and localized swelling. She states that the day before presenting, her blood sugars were out of control reaching 600 and she had a fever of 101 F, which prompted her to seek medical care. On evaluation in ED, initial labs show WBCs 12.3, lactic acid 1.2, Sodium 133, Potassium 3.6, creatinine 2.44, BUN 23, and serum glucose 361. UA was suggestive of UTI. Patient was admitted for further work up and was started on IV antibiotics and tramadol for pain. Surgical: 1 , cholecystectomy, appendectomy, endoscopy, lithotripsy Social: Refers she has smoked 1 cigarette a day for 20 years, occasional alcohol use, and marijuana use when she was a teenager, denies current drug use. States she lives with her boyfriend and that she feels safe. Patient seen at bedside. Patient is oriented, states that she is still in intense pain that is minimally improved by tramadol. She states is unable to eat well because of the pain. Currently denies fever, throat swelling, shortness of breath, nausea, and vomiting. On admission, patient was started on IV ceftriaxone, however she states this caused generalized pruritus. Ceftriaxone had to be discontinued and Benadryl was administered, which resolved the symptoms. On evaluation today, she was in extreme pain in the tragal area and referred sensitivity around her right eye. Due to this, head CT was ordered to evaluate for possible signs of orbital cellulitis. CT showed right face subcutaneous fat stranding and skin thickening could be cellulitis. Antibiotic was switched to cefepime and pain regimen adjusted. On further investigation, her most recent HbA1c from 02/04/2025 was >14.0. Her insulin regimen was subsequently adjusted. We will continue to monitor. Review of Systems: Constitutional: States loss of appetite, denies weight loss, fever and chills. HEENT: Refers eye swelling and eye pain, refers pain around ears that shoots down to her jaw, denies changes in vision and hearing. Respiratory: Denies shortness of breath and cough Cardiovascular: Denies chest discomfort or palpitations GI: Denies abdominal distention, abdominal pain, diarrhea : Denies dysuria and urinary frequency. Musculoskeletal: Denies symptoms Skin: Denies rash and pruritus. Neurological: Refers tingling sensation in her hands and feet, refers headache, denies dizziness, vision, or hearing problems Objective vital signs Vital Sign Date Time Temp Pulse Resp B/P (MAP) Pulse Ox O2 Delivery O2 Flow Rate FiO2 04/16/25 10:13 143/60 04/16/25 10:00 98.2 68 16 97 98.2 04/16/25 08:24 Room Air* 0 21 Total Intake and Output 04/15/25 04/15/25 04/16/25 15:00 23:00 07:00 Intake Total 1000 ml Balance 1000 ml medications Current Medications Medications Dose Ordered Sig/Mariel Route Start Time Stop Time Status Last Admin Dose Admin Furosemide 40 mg DAILY PO 04/16/25 10:00 04/16/25 10:10 40 MG Empaglifozin 10 mg DAILY PO 04/16/25 10:00 04/16/25 10:09 10 MG Amlodipine Besylate 10 mg DAILY PO 04/16/25 10:00 04/16/25 10:13 10 MG Gabapentin 400 mg BID PO 04/16/25 10:00 04/16/25 10:09 400 MG Atorvastatin Calcium 40 mg HS PO 04/16/25 22:00 Tramadol HCl 50 mg Q4HP PRN PO 04/16/25 00:45 04/16/25 12:39 50 MG Diagnostic Test (Pha) 1 strip IQ4HR 04/16/25 04:00 04/16/25 12:03 1 STRIP Dextrose 50 ml UD PRN IV 04/16/25 00:45 Ondansetron HCl 4 mg Q4HP PRN IV 04/16/25 00:45 Acetaminophen 650 mg Q6HP PRN PO 04/16/25 00:45 Cefepime HCl 50 ml @ 12.5 mls/hr DAILY IV 04/17/25 10:00 Ketorolac Tromethamine 15 mg Q6HPRN PRN IV 04/16/25 12:30 04/21/25 12:29 Insulin Glargine 20 units QAM SC 04/17/25 07:00 Insulin Human Lispro 6 units AC SC 04/16/25 17:00 Insulin Human Lispro If BS<60, ... ACHS SC 04/16/25 17:00 Examination Physical Exam General: Patient appears uncomfortable and in pain, alert and oriented in person place and time. Patient following commands. Obese. HEENT: Normocephalic, EOM are intact, presence of raised erythematous ulcerated lesion in right preauricular area, swollen right eyelid, pain to light touch of lesion, pain to light touch of majority of right side of the face, pain on palpation of right orbital area, pain on palpation of right tragus, dry mucous membrane Respiratory/pulmonary: Clear lungs bilaterally, vesicular murmurs present in almost all lung beckham, no associated crackles or wheezes. Abdomen: Obese, Normal bowel sounds, abdomen nondistended, minor pain to palpation of suprapubic area, no palpable masses Extremities: there is no peripheral edema present at the lower extremities, no deformities Peripheral pulses 3+ radial right, 3+ radials soft. Pedal pulses slightly decreased. Skin: Raised erythematous lesion in the right preauricular area, no rashes or pruritus Neurological: Intact cranial nerves with no focal neurologic deficits. Decreased sensation in both feet. laboratory and microbiology Laboratory Tests 04/15/25 21:14 Test 04/15/25 21:14 Range/Units Serum Glucose 361 H 74-106 mg/dL Problem List/Assessment/Plan Problem List/Assessment/Plan Assessment and Plan: Right facial cellulitis -Ceftriaxone IV, discontinued -Cefepime 1g IV daily -Head CT: Right face subcutaneous fat stranding and skin thickening could be cellulitis. -Pending blood culture -Ruled out orbital cellulitis Possible Acute Cystitis with Hematuria -Ceftriaxone IV, discontinued -Cefepime 1 g IV daily -Pending urine culture Type 2 Diabetes Mellitus with hyperglycemia, HbA1c 02/04/2025: >14 -Lantus 20, Lispro 6 Lispro SSI -Accu-cheks -Carbohydrate consistent diet Chronic Diastolic Heart Failure -Continue home medications -Monitor I&O -Echocardiogram 04/07/2024: Normal left ventricular systolic function estimated EF 60%. Grade 1 diastolic function. -Cardiac diet Chronic Kidney Disease progressing to ESRD -Monitor I&O -Avoid nephrotoxic drugs -Monitor renal function Obesity 30.8 Kg/m2 Tobacco Use -Counseled on cessation of tobacco use for over 20 minutes. Case discussed with Dr. Rasheed. Goals of care discussed with the patient for over 25 minutes who states she understands and agrees. Plan discussed with: Patient My Orders My Orders Orders - GARY MOROCHO RESIDENT Procedure Category Date Status Time Cefepime 1gm/ 50ml PHA 04/17/25 In Process (Maxipime 1gm/50ml) 10:00 Ketorolac Injection PHA 04/16/25 In Process (Toradol Injection) 12:30 Cefepime 1gm/ 50ml PHA 04/16/25 In Process (Maxipime 1gm/50ml) 13:00 Date of Service: Apr 16, 2025 Billing Provider: MARK RASHEED MD Common Visit Codes: [id number] INP/OBS CARE(HIGH) GARY MOROCHO RESIDENT Apr 16, 2025 14:01 MARK RASHEED MD Apr 18, 2025 14:29
[2025-04-16] MEDS: CEFEPIME 1GM/ 50ML 50 ML IV ONE (15:59)
--- NOTE | 2025-04-16 16:00 | DVH ---
CT HEAD WITHOUT CONTRAST INDICATION: facial cellulitis EXAM DATE: 04/16/2025 03:28 PM COMPARISON: None RADIATION DOSE: CTDIvol: 54.73 mGy, DLP: 1078.7 mGy*cm PROCEDURE: CT scans of the head were obtained from the vertex to the skull base. Sagittal and coronal reconstructions were provided. All CT scans at this medical facility are performed using dose modulation techniques as appropriate t o a performed exam including the following: Automated exposure control was utilized; adjustment of th e MA and/or KV according to patient size; and use of iterative reconstruction technique. FINDINGS: There is sulcal and ventricular prominence. The brain otherwise shows normal morphology a nd mayes-white matter differentiation, without intracranial hemorrhage, extra-axial fluid collection, mass effect or acute large vessel infarct. The ventricles are normal in size. The basal cisterns are patent. The skull and visible facial bones are intact. The paranasal sinuses, mastoid air cells and m iddle ear cavities are well-aerated. Right face subcutaneous fat stranding and skin thickening could be cellulitis. No focal fluid collection visualized. IMPRESSION: Right face subcutaneous fat stranding and skin thickening could be cellulitis. No focal fluid collect ion visualized. No acute intracranial abnormality.
[2025-04-16] MEDS: INSULIN LANTUS (GLARGINE) 1 /0.01ml (100units/ml) SC ONE (16:09)
[2025-04-16] MEDS: INSULIN LISPRO (HUMAN) 100 UNITS/ML ML SC SCH ×2 (17:00→17:34)
--- NOTE | 2025-04-16 18:07 | DVHCONRES ---
Date Seen: Apr 16, 2025 Resident Creating Document: FARIDA RUTLEDGE RESIDENT Reason for Consultation Uncontrolled diabetes mellitus History of Present Illness 49-year-old female with past medical history of type 2 diabetes mellitus, CHF, CKD, hypertension, [place] presented with complaints of facial pain on the left side. On Hospital presentation, patient had blood glucose of 400s, after which patient was started on mild sliding scale insulin. Endocrine was consulted for managing uncontrolled diabetes mellitus Patient mentioned that she was diagnosed with diabetes mellitus type 2 when she was in her 20s, patient is currently taking Jardiance 10 mg once daily, glipizide 10 mg b.i.d., insulin glargine 46 units q.p.m., metformin 500 mg b.i.d.. She mentioned she does not remember her hemoglobin A1c. Diabetes is managed by her primary care and has not seen e commerce marketing analyst. Denied any active complaints of fatigue, nausea, vomiting, polydipsia, polyuria. Past medical history type 2 diabetes mellitus, CHF, CKD, hypertension, [place] Social history Denied smoking, alcohol, marijuana or IV drug intake Family History: Alcoholism FHx: prostate cancer G8 FATHER Family history: Cardiovascular disease G8 MOTHER Family history: Diabetes mellitus G8 MOTHER Family history: Hypertension G8 MOTHER Gout G8 FATHER Heart attack G8 MOTHER Stroke G8 MOTHER Tuberculosis G8 FATHER Allergies: Coded Allergies: Codeine (Verified Allergy, Unknown, 03/20/19) Home Meds Active Scripts Hydrocodone-Acetaminophen (Hydrocodone Bitartrate/AC 5-325 mg) 1 Tab Tab, 1 TAB PO Q6HP PRN, #15 TAB Prov:ZULY SAMANO MD 02/06/25 Clindamycin Hcl (Cleocin) 300 Mg Cap, 300 MG PO Q8HP PRN, #30 CAP Prov:ZULY SAMANO MD 02/06/25 Hydrocodone-Acetaminophen (Hydrocodone Bitartrate/AC 10-325 mg) 1 Tab Tab, 1 TAB PO QID PRN, #30 TAB Prov:AZIZA GARCIA MD 12/14/24 Albuterol Sulfate (VENTOLIN I) 90 Mcg Ih, 90 MCG IN TID for 5 Days, #1 INH Prov:PARISH JENSEN 10/26/24 Guaifenesin (Guaifenesin) 100 Mg/5 Ml Syp, 200 MG PO Q6HP PRN for 5 Days, #1 UNIT Prov:PARISH JENSEN RESIDENT 10/26/24 Ferrous Sulfate (Ferrous Sulfate) 325 Mg Tab, 325 MG PO DAILY for 30 Days, #30 TAB 2 Refills Prov:ANDREA JOSHUA RESIDENT 04/07/24 Reported Medications Glipizide (Glipizide) 10 Mg Tab, 10 MG PO BID for 30 Days, MG 02/05/25 Metformin Hydrochloride (Metformin Hcl) 500 Mg Tab, 500 MG PO IBID for 30 Days, MG 02/05/25 Insulin Lispro (Insulin Lispro Kwikpen) 100 Unit/Ml Inj, UNIT SC TID for 42 Days, #15 INJECT SUBCUTANEOUSLY 3 TIMES DAILY BEFORE MEAL(S) PER SLIDING SCALE DIRECTED. MAX 36 UNITS/DAY. 10/24/24 Spironolactone (Spironolactone) 25 Mg Tab, 1 TAB PO DAILY for 30 Days, #30 09/04/24 Amlodipine Besylate (Amlodipine Besylate) 10 Mg Tab, 1 TAB PO DAILY for 90 Days, #90 09/04/24 Pantoprazole Sodium Sesquihydr (Protonix) 40 Mg Tab, 1 TAB PO DAILY for 90 Days, #90 09/04/24 Metoprolol Tartrate (Metoprolol Tartrate) 50 Mg Tab, 1 TAB PO BID for 60 Days, #120 09/04/24 Metoclopramide Hcl (Metoclopramide Hcl) 5 Mg Tab, 1 TAB PO TID for 90 Days, #270 09/04/24 Insulin Glargine (Insulin Glargine) 100 Unit/Ml Marly, 46 UNIT SC QPM for 32 Days, #15 09/04/24 Gabapentin (Gabapentin) 100 Mg Cap, 400 MG PO BID for 90 Days, #180 09/04/24 Furosemide (Furosemide) 40 Mg Tab, 1 TAB PO DAILY for 90 Days, #90 09/04/24 Empagliflozin (Jardiance) 10 Mg Tab, 1 TAB PO DAILY for 90 Days, #90 09/04/24 Atorvastatin Calcium (Lipitor) 40 Mg Tab, 1 TAB PO DAILY for 90 Days, #90 09/04/24 Aspirin (Aspirin Low Dose) 81 Mg Chw, 1 TAB PO DAILY for 90 Days, #90 09/04/24 Current Medications Current Medications Medications (Trade) Dose Ordered Sig/Mariel Route PRN Reason Start Time Stop Time Status Last Admin Ceftriaxone Sodium 50 ml @ 100 mls/hr DAILY@09 IV 04/17/25 09:00 04/16/25 12:26 DC Furosemide (Lasix Tablet) 40 mg DAILY PO 04/16/25 10:00 04/16/25 10:10 Empaglifozin (Jardiance) 10 mg DAILY PO 04/16/25 10:00 04/16/25 10:09 Amlodipine Besylate (Norvasc Tablet) 10 mg DAILY PO 04/16/25 10:00 04/16/25 10:13 Gabapentin (Neurontin Capsule) 400 mg BID PO 04/16/25 10:00 04/16/25 10:09 Atorvastatin Calcium (Lipitor) 40 mg HS PO 04/16/25 22:00 Tramadol HCl (Ultram) 50 mg Q4HP PRN PO SEVERE PAIN (7-10 PAIN SCALE) 04/16/25 00:45 04/16/25 12:39 Diagnostic Test (Pha) (Accu-Chek Comfort Curve T) 1 strip IQ4HR 04/16/25 04:00 04/16/25 16:11 Insulin Human Regular (InsuLIN R) IQ4HR SC 04/16/25 04:00 04/16/25 12:54 DC 04/16/25 12:03 Dextrose 50 ml UD PRN IV Blood Sugar LESS THAN 60 04/16/25 00:45 Ondansetron HCl (Zofran) 4 mg Q4HP PRN IV NAUSEA / VOMITING 04/16/25 00:45 Acetaminophen (Tylenol Tablet) 650 mg Q6HP PRN PO PAIN SCALE 1-3 OR TEMP>100.4 04/16/25 00:45 Cefepime HCl 50 ml @ 12.5 mls/hr DAILY IV 04/17/25 10:00 Ketorolac Tromethamine (Toradol Injection) 15 mg Q6HPRN PRN IV MODERATE PAIN (4-6 PAIN SCALE) 04/16/25 12:30 04/21/25 12:29 Insulin Glargine (Lantus) 20 units QAM SC 04/17/25 07:00 Insulin Human Lispro (HumaLOG) 6 units AC SC 04/16/25 17:00 Insulin Human Lispro (HumaLOG) If BS<60, ... ACHS SC 04/16/25 17:00 04/16/25 17:34 Review of Systems As described in the HPI Vital Signs Vital Signs Date Time Temp Pulse Resp B/P (MAP) Pulse Ox O2 Delivery O2 Flow Rate FiO2 04/16/25 11:11 97.5 70 16 142/88 (106) 95 97.5 04/16/25 08:24 Room Air* 0 21 Physical Exam Examination General Appearance: Alert, Oriented X3, Cooperative, No acute distress HEENT: EOMI Respiratory: Clear to auscultation, Normal air movement Cardiovascular: Regular rate, Normal S1, Normal S2 Abdominal: Normal bowel sounds Extremities: No cyanosis, No edema, Normal pulses, No tenderness/swelling Skin: No rashes, No breakdown Neuro: Left-sided facial deviation with closure of left eyelid, Normal gait, Normal speech, Strength at 5/5 X4 ext, Normal tone, Sensation intact, Cranial nerves 3-12 NL, Reflexes 2+ Psych/Mental Status: Mental status NL, Mood NL Labs/Diagnostic Data Labs Test 04/16/25 15:45 04/16/25 01:10 04/15/25 21:14 Range/Units POC Glucose 185 H 70-106 mg/dl Urine Color Colorless Yellow Urine Clarity Turbid H Clear Urine pH 6.0 5.0-9.0 Urine Specific [place] 1.010 1.001-1.035 Urine Protein 2+ H Negative Urine Ketones Negative Negative Urine Blood 2+ H Negative /uL Urine Nitrite Negative Negative Urine Bilirubin Negative Negative Urine Urobilinogen Normal Negative mg/dL Urine Leukocyte Esterase 1+ Negative /uL Urine RBC 8 0 - 4 /hpf Urine Microscopic WBC 20 H 0-5 /HPF Urine Squamous Epithelial Cells Mod <5 /hpf Urine Bacteria None seen None Seen /hpf Urine Glucose 4+ H Normal mg/dL White Blood Count 12.3 H 4.4-10.8 10^3/uL Red Blood Count 3.50 L 4.0-5.20 10^6/uL Hemoglobin 10.3 L 12.2-16.2 g/dL Hematocrit 31.0 L 36.0-46.0 % Mean Corpuscular Volume 88.6 80.0-100.0 fL Mean Corpuscular Hemoglobin 29.3 28.0-32.0 pg Mean Corpuscular Hemoglobin Concent 33.1 32.0-36.0 g/dL Red Cell Distribution Width 15.0 H 11.8-14.3 % Platelet Count 452 H 140-450 10^3/uL Mean Platelet Volume 9.2 6.9-10.8 fL Neutrophils (%) (Auto) 70.6 37.0-80.0 % Lymphocytes (%) (Auto) 20.5 10.0-50.0 % Monocytes (%) (Auto) 5.9 0.0-12.0 % Eosinophils (%) (Auto) 2.6 0.0-7.0 % Basophils (%) (Auto) 0.4 0.0-2.0 % Neutrophils # (Auto) 8.7 H 1.6-8.6 10 ^3/uL Lymphocytes # (Auto) 2.5 0.4-5.4 10 ^3/uL Monocytes # (Auto) 0.7 0-1.3 10 ^3/uL Eosinophils # (Auto) 0.3 0-0.8 10 ^3/uL Basophils # (Auto) 0.1 0-0.2 10 ^3/uL Nucleated Red Blood Cells 0.1 % Sodium Level 133 L 136-145 mmol/L Potassium Level 3.6 3.5-5.1 mmol/L Chloride Level 103 98-107 mmol/L Carbon Dioxide Level 22 20-31 mmol/L Anion Gap 8 5-15 Blood Urea Nitrogen 23 9-23 mg/dL Creatinine 2.44 H 0.550-1.02 mg/dL Glomerular Filtration Rate Calc 24 >90 mL/min BUN/Creatinine Ratio 9.4 L 10.0-20.0 Serum Glucose 361 H 74-106 mg/dL Lactic Acid Level 1.2 0.4-2.0 mmol/L Calcium Level 9.3 8.7-10.4 mg/dL Total Bilirubin < 0.2 L 0.2-1.0 mg/dL Aspartate Amino Transferase (AST) 14 13-40 U/L Alanine Aminotransferase (ALT) 15 7-40 U/L Alkaline Phosphatase 115 46-116 U/L B-Type Natriuretic Peptide 53.65 0-100 pg/mL Total Protein 6.0 5.7-8.2 g/dL Albumin 3.6 3.2-4.8 g/dL Plan/Recommendation Assessment/plan -Uncontrolled Type 2 Diabetes Mellitus with hyperglycemia, HbA1c 02/04/2025: >14 -Right facial cellulitis -Possible Acute Cystitis with Hematuria -Chronic Diastolic Heart Failure -Chronic Kidney Disease -Obesity 30.8 Kg/m2 Plan Consistent carbohydrate diet Accu-Cheks a.c. HS Keep blood glucose between 140-180 We will start patient on insulin Lantus 20 units daily, with insulin Humalog, 6 units pre meal and mild sliding scale insulin with Humalog We will monitor total insulin required per sliding scale for next 24 hours and readjust the dose. Thank your for consulting. Please feel free to reach out if you have any questions regarding the plan or need additional information Case discussion with Dr Caro. Attending attestation: I independently performed a clinical history, physical exam, and formulated an assessmetn and plan in conjunction with the resident and agree with the aforementioned findings. Plan discussed with: Patient, Other FARIDA RUTLEDGE RESIDENT Apr 16, 2025 18:07 SOLEDAD CARO MD Apr 17, 2025 18:16
[2025-04-16] MEDS: ATORVASTATIN 20 MG TAB PO SCH (22:19)
[2025-04-17] VITALS (7 sets, daily range): BP systolic 126–149; BP diastolic 66–79; PULSE 68–86; RESP 16–20; TEMP 97–98.2; O2SAT 94–98
[2025-04-17 05:29] LABS: Hematocrit 31.8 % (36.0-46.0); Hemoglobin 10.6 g/dL (12.2-16.2); Mean Corpuscular Hemoglobin 29.3 pg (28.0-32.0); Mean Corpuscular Volume 87.6 fL (80.0-100.0); Nucleated Red Blood Cells % 0.0 %
[2025-04-17 05:38] LABS: Chloride 103 mmol/L (98-107); Potassium 3.8 mmol/L (3.5-5.1); Sodium 136 mmol/L (136-145)
[2025-04-17 05:39] LABS: Anion Gap 9 (5-15); Carbon Dioxide 24 mmol/L (20-31)
[2025-04-17 05:40] LABS: Calcium 9.7 mg/dL (8.7-10.4)
[2025-04-17 05:45] LABS: BUN/Creatinine Ratio 10.7 (10.0-20.0)
[2025-04-17 05:46] LABS: Blood Urea Nitrogen 26 mg/dL (9-23); Glucose 163 mg/dL (74-106)
[2025-04-17] MEDS: INSULIN LANTUS (GLARGINE) 1 /0.01ml (100units/ml) SC SCH (06:19)
[2025-04-17] MEDS ORDERED: cefTRIAXone 1GM/50ML D5W 50 ML IV SCH (09:00)
[2025-04-17] MEDS: CEFEPIME 1GM/ 50ML 50 ML IV SCH (09:08)
--- NOTE | 2025-04-17 12:14 | DVHPN2 ---
Consult Progress Note Date Seen: Apr 17, 2025 Subjective Patient reports: No new complaints, Feels better Other Systems: History of Present Illness 49-year-old female with past medical history of type 2 diabetes mellitus, CHF, CKD, hypertension, [place] presented with complaints of facial pain on the left side. On Hospital presentation, patient had blood glucose of 400s, after which patient was started on mild sliding scale insulin. Endocrine was consulted for managing uncontrolled diabetes mellitus Patient mentioned that she was diagnosed with diabetes mellitus type 2 when she was in her 20s, patient is currently taking Jardiance 10 mg once daily, glipizide 10 mg b.i.d., insulin glargine 46 units q.p.m., metformin 500 mg b.i.d.. She mentioned she does not remember her hemoglobin A1c. Diabetes is managed by her primary care and has not seen rn prior authorization. Denied any active complaints of fatigue, nausea, vomiting, polydipsia, polyuria. Past medical history type 2 diabetes mellitus, CHF, CKD, hypertension, [place] Social history Denied smoking, alcohol, marijuana or IV drug intake Objective vital signs Vital Sign Date Time Temp Pulse Resp B/P (MAP) Pulse Ox O2 Delivery O2 Flow Rate FiO2 04/17/25 09:10 126/74 04/17/25 09:00 97.9 76 16 94 97.9 04/17/25 08:00 Room Air* 0 21 Total Intake and Output 04/16/25 04/16/25 04/17/25 15:00 23:00 07:00 Intake Total 400 ml 934 ml Balance 400 ml 934 ml medications Current Medications Medications Dose Ordered Sig/Mariel Route Start Time Stop Time Status Last Admin Dose Admin Furosemide 40 mg DAILY PO 04/16/25 10:00 04/17/25 09:10 40 MG Empaglifozin 10 mg DAILY PO 04/16/25 10:00 04/17/25 09:08 10 MG Amlodipine Besylate 10 mg DAILY PO 04/16/25 10:00 04/17/25 09:09 10 MG Gabapentin 400 mg BID PO 04/16/25 10:00 04/17/25 09:07 400 MG Atorvastatin Calcium 40 mg HS PO 04/16/25 22:00 04/16/25 22:19 40 MG Tramadol HCl 50 mg Q4HP PRN PO 04/16/25 00:45 04/17/25 06:19 50 MG Diagnostic Test (Pha) 1 strip IQ4HR 04/16/25 04:00 04/17/25 11:51 1 STRIP Dextrose 50 ml UD PRN IV 04/16/25 00:45 Ondansetron HCl 4 mg Q4HP PRN IV 04/16/25 00:45 Acetaminophen 650 mg Q6HP PRN PO 04/16/25 00:45 Cefepime HCl 50 ml @ 12.5 mls/hr DAILY IV 04/17/25 10:00 04/17/25 09:08 12.5 MLS/HR Ketorolac Tromethamine 15 mg Q6HPRN PRN IV 04/16/25 12:30 04/21/25 12:29 Insulin Glargine 20 units QAM SC 04/17/25 07:00 04/17/25 06:19 20 UNITS Insulin Human Lispro 6 units AC SC 04/16/25 17:00 04/17/25 11:50 6 UNITS Insulin Human Lispro If BS<60, ... ACHS ME 04/16/25 17:00 04/17/25 11:50 4 UNITS Examination: GENERAL:Normal, LUNGS:Normal, CVS:Normal, SKIN:Normal laboratory and microbiology Laboratory Tests 04/17/25 04:26 Test 04/17/25 04:26 Range/Units Serum Glucose 163 H 74-106 mg/dL Problem List/Assessment/Plan Problem List/Assessment/Plan Assessment/plan -Uncontrolled Type 2 Diabetes Mellitus with hyperglycemia, HbA1c 02/04/2025: >14 -Right facial cellulitis -Possible Acute Cystitis with Hematuria -Chronic Diastolic Heart Failure -Chronic Kidney Disease -Obesity 30.8 Kg/m2 Plan Consistent carbohydrate diet Accu-Cheks a.c. HS Keep blood glucose between 140-180 Continue insulin Lantus 20 units daily, with insulin Humalog, 6 units pre meal and mild sliding scale insulin with Humalog We will monitor total insulin required per sliding scale for next 24 hours and readjust the dose. Thank your for consulting. Please feel free to reach out if you have any questions regarding the plan or need additional information Case discussion with Dr Caro. Attending attestation: I independently performed a clinical history, physical exam, and formulated an assessmetn and plan in conjunction with the resident and agree with the aforementioned findings. Plan discussed with: Patient, Other FARIDA RUTLEDGE RESIDENT Apr 17, 2025 12:14 SOLEDAD CARO MD Apr 17, 2025 18:16
--- NOTE | 2025-04-17 15:49 | DVHPNRES ---
Progress Note Date Seen: Apr 17, 2025 Resident Creating Document: GARY MOROCHO RESIDENT Medical Necessity Reason Pt with a Central, PICC or Fol: No Subjective Review of Systems Patient is a 49 year old female with prior medical history of type 2 DM, CHF, CKD, hyperlipidemia, peripheral neuropathy, gastritis, and PUD, who presented to the ED with chief complaint of face pain. The patient states she woke up with the pain approximately 3 days ago and believes she was bitten by an insect in her sleep. Patient describes the pain as pulsatile, radiating from the wound on her right preauricular area to her jaw and towards her eyes, intensity 10/10, for which she took Tylenol with minimal relief. Associated with pulsatile headache, eye pain, decreased appetite, chills, and localized swelling. She states that the day before presenting, her blood sugars were out of control reaching 600 and she had a fever of 101 F, which prompted her to seek medical care. On evaluation in ED, initial labs show WBCs 12.3, lactic acid 1.2, Sodium 133, Potassium 3.6, creatinine 2.44, BUN 23, and serum glucose 361. UA was suggestive of UTI. Patient was admitted for further work up and was started on IV antibiotics and tramadol for pain. On admission, patient was started on IV ceftriaxone, however she states this caused generalized pruritus. Ceftriaxone had to be discontinued and Benadryl was administered, which resolved the symptoms. Due to suspicion of orbital cellulitis, Head CT without contrast was ordered. This showed rightface subcutaneous fat stranding and skin thickening could be cellulitis, no fluid collection. Antibiotic was switched to cefepime and pain regimen adjusted. On further investigation, her most recent HbA1c from 02/04/2025 was >14.0. Her insulin regimen was subsequently adjusted. Patient seen at bedside. Patient is oriented, states she is still in pain, but it has improved, and still has some chills. She states that swelling near her eye has decreased significantly. She has been able to more, and is tolerating the new insulin regimen. She currently denies fever, nausea, vomiting, changes in vision, orbital pain, and palpitations. Follow labs show WBC 8.6, BUN 26, creatinine 2.42, and glucose 163. Preliminary blood cultures show no growth at 24 hours. She will continue on IV antibiotics and Toradol for pain management. We will continue to monitor. Objective vital signs Vital Sign Date Time Temp Pulse Resp B/P (MAP) Pulse Ox O2 Delivery O2 Flow Rate FiO2 04/17/25 13:00 98.2 82 18 147/77 (100) 97 98.2 04/17/25 08:00 Room Air* 0 21 Total Intake and Output 04/16/25 04/16/25 04/17/25 15:00 23:00 07:00 Intake Total 400 ml 934 ml Balance 400 ml 934 ml medications Current Medications Medications Dose Ordered Sig/Mariel Route Start Time Stop Time Status Last Admin Dose Admin Furosemide 40 mg DAILY PO 04/16/25 10:00 04/17/25 09:10 40 MG Empaglifozin 10 mg DAILY PO 04/16/25 10:00 04/17/25 09:08 10 MG Amlodipine Besylate 10 mg DAILY PO 04/16/25 10:00 04/17/25 09:09 10 MG Gabapentin 400 mg BID PO 04/16/25 10:00 04/17/25 09:07 400 MG Atorvastatin Calcium 40 mg HS PO 04/16/25 22:00 04/16/25 22:19 40 MG Tramadol HCl 50 mg Q4HP PRN PO 04/16/25 00:45 04/17/25 06:19 50 MG Diagnostic Test (Pha) 1 strip IQ4HR 04/16/25 04:00 04/17/25 11:51 1 STRIP Dextrose 50 ml UD PRN IV 04/16/25 00:45 Ondansetron HCl 4 mg Q4HP PRN IV 04/16/25 00:45 Acetaminophen 650 mg Q6HP PRN PO 04/16/25 00:45 Cefepime HCl 50 ml @ 12.5 mls/hr DAILY IV 04/17/25 10:00 04/17/25 09:08 12.5 MLS/HR Ketorolac Tromethamine 15 mg Q6HPRN PRN IV 04/16/25 12:30 04/21/25 12:29 Insulin Glargine 20 units QAM SC 04/17/25 07:00 04/17/25 06:19 20 UNITS Insulin Human Lispro 6 units AC SC 04/16/25 17:00 04/17/25 11:50 6 UNITS Insulin Human Lispro If BS<60, ... ACHS SC 04/16/25 17:00 04/17/25 11:50 4 UNITS Examination General: Patient appears in pain, alert and oriented in person place and time. Patient following commands. Obese. HEENT: Normocephalic, EOM are intact, presence of raised erythematous ulcerated lesion in right preauricular area, decreased swelling right eyelid, pain to light touch of lesion, pain to light touch of majority of right side of the face, no pain on palpation of orbital area, pain on palpation of right tragus, dry mucous membrane Respiratory/pulmonary: Clear lungs bilaterally, vesicular murmurs present in almost all lung beckham, no associated crackles or wheezes. Abdomen: Obese, Normal bowel sounds, abdomen nondistended, minor pain to palpation of suprapubic area, no palpable masses Extremities: there is no peripheral edema present at the lower extremities, no deformities Peripheral pulses 3+ radial right, 3+ radials soft. Pedal pulses slightly decreased. Skin: Raised erythematous lesion in the right preauricular area, no rashes or pruritus Neurological: Intact cranial nerves with no focal neurologic deficits. Decreased sensation in both feet. laboratory and microbiology Laboratory Tests 04/17/25 04:26 Test 04/17/25 04:26 Range/Units Serum Glucose 163 H 74-106 mg/dL Microbiology Date/Time Source Procedure Growth Status 04/16/25 01:10 Voided Urine Urine Culture - Preliminary Resulted 04/15/25 21:13 Blood Blood Culture - Preliminary NO GROWTH AFTER 24 HOURS OF INCUBATION. Resulted Problem List/Assessment/Plan Problem List/Assessment/Plan Assessment and Plan: Right facial cellulitis -Ceftriaxone IV, discontinued -Cefepime 1g IV daily -Head CT: Right face subcutaneous fat stranding and skin thickening could be cellulitis. -Preliminary blood cultures: No growth at 24 hours -Ruled out orbital cellulitis Possible Acute Cystitis with Hematuria -Ceftriaxone IV, discontinued -Cefepime 1 g IV daily -Pending urine culture Type 2 Diabetes Mellitus with hyperglycemia, HbA1c 02/04/2025: >14 -Lantus 20, Lispro 6, Lispro Mild SSI -Accu-cheks -Carbohydrate consistent diet Chronic Diastolic Heart Failure -Continue home medications -Monitor I&O -Echocardiogram 04/07/2024: Normal left ventricular systolic function estimated EF 60%. Grade 1 diastolic function. -Cardiac diet Chronic Kidney Disease progressing to ESRD -Monitor I&O -Avoid nephrotoxic drugs -Monitor renal function Obesity 30.8 Kg/m2 Tobacco Use -Counseled on cessation of tobacco use for over 20 minutes. Case discussed with Dr. Bynum. Goals of care discussed with the patient for over 25 minutes who states she understands and agrees. Plan discussed with: Patient My Orders My Orders Orders - GARY MOROCHO Procedure Category Date Status Time Consistent DIET 04/16/25 Transmitted Carb([facility])Diabetes Dinner GARY MOROCHO RESIDENT Apr 17, 2025 15:49
[2025-04-17] MEDS: KETOROLAC TROMETH 30 MG/ML 1ML VIAL IV PRN (21:15)
[2025-04-18 04:21] VITALS: BP 118/75; PULSE 78; RESP 17; TEMP 98.2; O2SAT 94
[2025-04-18 06:27] LABS: Chloride 103 mmol/L (98-107); Potassium 4.0 mmol/L (3.5-5.1)
[2025-04-18 06:28] LABS: Anion Gap 9 (5-15); Calcium 8.9 mg/dL (8.7-10.4); Carbon Dioxide 23 mmol/L (20-31)
[2025-04-18 06:33] LABS: BUN/Creatinine Ratio 11.5 (10.0-20.0)
[2025-04-18 06:35] LABS: Blood Urea Nitrogen 30 mg/dL (9-23); Glucose 206 mg/dL (74-106); Sodium 135 mmol/L (136-145)
[2025-04-18 06:38] LABS: Hematocrit 29.8 % (36.0-46.0); Hemoglobin 10.1 g/dL (12.2-16.2); Mean Corpuscular Hemoglobin 29.6 pg (28.0-32.0); Mean Corpuscular Volume 87.7 fL (80.0-100.0); Nucleated Red Blood Cells % 0.1 %
[2025-04-18 08:05] VITALS: PULSE 83; RESP 20; O2SAT 97
[2025-04-18 08:34] VITALS: BP 169/80; PULSE 83; RESP 20; TEMP 98.8; O2SAT 97
--- NOTE | 2025-04-18 08:54 | DVHPN2 ---
Consult Progress Note Date Seen: Apr 18, 2025 Subjective Other Systems: History of Present Illness 49-year-old female with past medical history of type 2 diabetes mellitus, CHF, CKD, hypertension, [place] presented with complaints of facial pain on the left side. On Hospital presentation, patient had blood glucose of 400s, after which patient was started on mild sliding scale insulin. Endocrine was consulted for managing uncontrolled diabetes mellitus Patient mentioned that she was diagnosed with diabetes mellitus type 2 when she was in her 20s, patient is currently taking Jardiance 10 mg once daily, glipizide 10 mg b.i.d., insulin glargine 46 units q.p.m., metformin 500 mg b.i.d.. She mentioned she does not remember her hemoglobin A1c. 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 Denied any active complaints of fatigue, nausea, vomiting, polydipsia, polyuria. Past medical history type 2 diabetes mellitus, CHF, CKD, hypertension, [place] Social history Denied smoking, alcohol, marijuana or IV drug intake Objective vital signs Vital Sign Date Time Temp Pulse Resp B/P (MAP) Pulse Ox O2 Delivery O2 Flow Rate FiO2 04/18/25 08:34 98.8 83 20 169/80 (109) 97 98.8 04/17/25 20:00 Room Air* 0 21 Total Intake and Output 04/17/25 04/17/25 04/18/25 15:00 23:00 07:00 Intake Total 50 ml 1450 ml 550 ml Balance 50 ml 1450 ml 550 ml medications Current Medications Medications Dose Ordered Sig/Mariel Route Start Time Stop Time Status Last Admin Dose Admin Furosemide 40 mg DAILY PO 04/16/25 10:00 04/17/25 09:10 40 MG Empaglifozin 10 mg DAILY PO 04/16/25 10:00 04/17/25 09:08 10 MG Amlodipine Besylate 10 mg DAILY PO 04/16/25 10:00 04/17/25 09:09 10 MG Gabapentin 400 mg BID PO 04/16/25 10:00 04/17/25 21:44 400 MG Atorvastatin Calcium 40 mg HS PO 04/16/25 22:00 04/17/25 21:43 40 MG Tramadol HCl 50 mg Q4HP PRN PO 04/16/25 00:45 04/18/25 03:05 50 MG Diagnostic Test (Pha) 1 strip IQ4HR 04/16/25 04:00 04/18/25 06:35 1 STRIP Dextrose 50 ml UD PRN IV 04/16/25 00:45 Ondansetron HCl 4 mg Q4HP PRN IV 04/16/25 00:45 Acetaminophen 650 mg Q6HP PRN PO 04/16/25 00:45 Cefepime HCl 50 ml @ 12.5 mls/hr DAILY IV 04/17/25 10:00 04/17/25 09:08 12.5 MLS/HR Ketorolac Tromethamine 15 mg Q6HPRN PRN IV 04/16/25 12:30 04/21/25 12:29 04/18/25 06:49 15 MG Insulin Glargine 20 units QAM SC 04/17/25 07:00 04/18/25 06:34 20 UNITS Insulin Human Lispro 6 units AC KS 04/16/25 17:00 04/18/25 06:35 6 UNITS Insulin Human Lispro If BS<60, ... ACHS [place] 04/16/25 17:00 04/18/25 06:34 3 UNITS Examination: GENERAL:Normal, LUNGS:Normal, CVS:Normal laboratory and microbiology Laboratory Tests 04/18/25 04:52 Test 04/18/25 04:52 Range/Units Serum Glucose 206 H 74-106 mg/dL Problem List/Assessment/Plan Problem List/Assessment/Plan Assessment/plan -Uncontrolled Type 2 Diabetes Mellitus with hyperglycemia, HbA1c 02/04/2025: >14 repeat HbA1c 12.9 04/17/25 -Right facial cellulitis -Possible Acute Cystitis with Hematuria -Chronic Diastolic Heart Failure -Chronic Kidney Disease -Obesity 30.8 Kg/m2 Plan Consistent carbohydrate diet Accu-Cheks a.c. HS Keep blood glucose between 140-180 Total extra insulin requirement through sliding scale in last 24 hours: 17 Increase insulin Lantus to 24 units daily, with insulin Humalog, 8 units pre meal and mild sliding scale insulin with Humalog We will monitor total insulin required per sliding scale for next 24 hours and readjust the dose. Outpatient Follow up with Endocrine. Thank your for consulting. Please feel free to reach out if you have any questions regarding the plan or need additional information Case discussion with Dr Caro. I independently examined the patient, reviewed all clinical data and formulated a plan for the aforementioned patient. I agree with the resident's assessment as above. Plan discussed with: Patient, Other FARIDA RUTLEDGE RESIDENT Apr 18, 2025 08:54 SOLEDAD CARO MD Apr 18, 2025 14:22
[2025-04-18] MEDS: INSULIN LANTUS (GLARGINE) 1 /0.01ml (100units/ml) SC ONE (09:31)
[2025-04-18] MEDS: CARVEDILOL 3.125 MG TAB PO SCH (09:44)
[2025-04-18] MEDS: INSULIN LISPRO (HUMAN) 100 UNITS/ML ML SC SCH (12:05)
[2025-04-18 12:41] VITALS: BP 145/83; PULSE 78; RESP 19; TEMP 97.9; O2SAT 99
[2025-04-18] MEDS: MORPHINE SULFATE INJ 2 MG/ml SYRG IV PRN (14:12)
[2025-04-18 16:47] VITALS: BP 127/55; PULSE 74; RESP 17; TEMP 98.6; O2SAT 94
--- NOTE | 2025-04-18 18:32 | DVHPNRES ---
Progress Note Date Seen: Apr 18, 2025 Resident Creating Document: GARY MOROHCO RESIDENT Medical Necessity Reason Pt with a Central, PICC or Fol: No Medical Necessity Reason Patient is a 49 year old female with prior medical history of type 2 DM, CHF, CKD, hyperlipidemia, peripheral neuropathy, gastritis, and PUD, who presented to the ED with chief complaint of face pain. The patient states she woke up with the pain approximately 3 days ago and believes she was bitten by an insect in her sleep. Patient describes the pain as pulsatile, radiating from the wound on her right preauricular area to her jaw and towards her eyes, intensity 10/10, for which she took Tylenol with minimal relief. Associated with pulsatile headache, eye pain, decreased appetite, chills, and localized swelling. She states that the day before presenting, her blood sugars were out of control reaching 600 and she had a fever of 101 F, which prompted her to seek medical care. On evaluation in ED, initial labs show WBCs 12.3, lactic acid 1.2, Sodium 133, Potassium 3.6, creatinine 2.44, BUN 23, and serum glucose 361. UA was suggestive of UTI. Patient was admitted for further work up and was started on IV antibiotics and tramadol for pain. On admission, patient was started on IV ceftriaxone, however she states this caused generalized pruritus. Ceftriaxone had to be discontinued and Benadryl was administered, which resolved the symptoms. Due to suspicion of orbital cellulitis, Head CT without contrast was ordered. This showed rightface subcutaneous fat stranding and skin thickening could be cellulitis, no fluid collection. Antibiotic was switched to cefepime and pain regimen adjusted. On further investigation, her most recent HbA1c from 02/04/2025 was >14.0. Her insulin regimen was subsequently adjusted. Patient seen at bedside. Patient is oriented, states she is still in pain, which has been aggravated secondary to her sleeping the affected side. She states some bilateral blurry vision, more on the right than left. Currently denies nausea, vomiting, fever, secretion from facial lesion, and any other symptoms. Follow up labs are within normal range, and vitals have been stable with no new febrile peaks. Due to persistently elevated glucose levels, her insulin regimen has been adjusted. Her pain regimen has been adjusted as well. She will continue on IV antibiotics, possible discharge tomorrow. Objective vital signs Vital Sign Date Time Temp Pulse Resp B/P (MAP) Pulse Ox O2 Delivery O2 Flow Rate FiO2 04/18/25 16:47 98.6 74 17 127/55 (79) 94 98.6 04/18/25 08:05 Room Air* 0 21 Total Intake and Output 04/17/25 04/17/25 04/18/25 15:00 23:00 07:00 Intake Total 50 ml 1450 ml 550 ml Balance 50 ml 1450 ml 550 ml medications Current Medications Medications Dose Ordered Sig/Mariel Route Start Time Stop Time Status Last Admin Dose Admin Furosemide 40 mg DAILY PO 04/16/25 10:00 04/18/25 09:11 40 MG Empaglifozin 10 mg DAILY PO 04/16/25 10:00 04/18/25 09:11 10 MG Amlodipine Besylate 10 mg DAILY PO 04/16/25 10:00 04/18/25 09:11 10 MG Gabapentin 400 mg BID PO 04/16/25 10:00 04/18/25 09:10 400 MG Atorvastatin Calcium 40 mg HS PO 04/16/25 22:00 04/17/25 21:43 40 MG Diagnostic Test (Pha) 1 strip IQ4HR 04/16/25 04:00 04/18/25 17:33 1 STRIP Dextrose 50 ml UD PRN IV 04/16/25 00:45 Ondansetron HCl 4 mg Q4HP PRN IV 04/16/25 00:45 Acetaminophen 650 mg Q6HP PRN PO 04/16/25 00:45 Cefepime HCl 50 ml @ 12.5 mls/hr DAILY IV 04/17/25 10:00 04/18/25 09:10 12.5 MLS/HR Insulin Human Lispro If BS<60, ... ACHS SC 04/16/25 17:00 04/18/25 17:40 3 UNITS Insulin Glargine 24 units QAM SC 04/19/25 07:00 Insulin Human Lispro 8 units AC SC 04/18/25 11:30 04/18/25 17:39 8 UNITS Carvedilol 6.25 mg Q12HR PO 04/18/25 10:00 04/18/25 09:44 6.25 MG Morphine Sulfate 2 mg Q4HPRN PRN IV 04/18/25 09:30 04/18/25 14:12 2 MG Examination General: Patient appears uncomfortable and in pain, alert and oriented in person place and time. Patient following commands. Obese. HEENT: Normocephalic, EOM are intact, presence of raised erythematous ulcerated lesion in right preauricular area which is decreasing in size, decreased swelling in right eyelid, pain to light touch of lesion, pain to light touch of majority of right side of the face, pain on palpation of right orbital area, pain on palpation of right tragus, dry mucous membrane Respiratory/pulmonary: Clear lungs bilaterally, vesicular murmurs present in almost all lung beckham, no associated crackles or wheezes. Abdomen: Obese, Normal bowel sounds, abdomen nondistended, minor pain to palpation of suprapubic area, no palpable masses Extremities: there is no peripheral edema present at the lower extremities, no deformities Peripheral pulses 3+ radial right, 3+ radials soft. Pedal pulses slightly decreased. Skin: Raised erythematous lesion in the right preauricular area, no rashes or pruritus Neurological: Intact cranial nerves with no focal neurologic deficits. Decreased sensation in both feet. laboratory and microbiology Laboratory Tests 04/18/25 04:52 Test 04/18/25 04:52 Range/Units Serum Glucose 206 H 74-106 mg/dL Microbiology Date/Time Source Procedure Growth Status 04/16/25 01:10 Voided Urine Urine Culture - Preliminary Resulted 04/15/25 21:13 Blood Blood Culture - Preliminary NO GROWTH AFTER 48 HOURS OF INCUBATION. Resulted Problem List/Assessment/Plan Problem List/Assessment/Plan Assessment and Plan: Right facial cellulitis -Ceftriaxone IV, discontinued -Cefepime 1g IV daily -Head CT: Right face subcutaneous fat stranding and skin thickening could be cellulitis. -Preliminary blood cultures: No growth at 24 hours -Ruled out orbital cellulitis Possible Acute Cystitis with Hematuria -Ceftriaxone IV, discontinued -Cefepime 1 g IV daily -Pending urine culture Type 2 Diabetes Mellitus with hyperglycemia, HbA1c 02/04/2025: >14 -Lantus 20, Lispro 8, Lispro Mild SSI -Accu-cheks -Carbohydrate consistent diet Chronic Diastolic Heart Failure -Continue home medications -Monitor I&O -Echocardiogram 04/07/2024: Normal left ventricular systolic function estimated EF 60%. Grade 1 diastolic function. -Cardiac diet Chronic Kidney Disease progressing to ESRD -Monitor I&O -Avoid nephrotoxic drugs -Monitor renal function Obesity 30.8 Kg/m2 Tobacco Use -Counseled on cessation of tobacco use for over 20 minutes. Case discussed with Dr. Bynum. Goals of care discussed with the patient for over 25 minutes who states she understands and agrees. Plan discussed with: Patient GARY MOROCHO RESIDENT Apr 18, 2025 18:32
[2025-04-18 20:45] VITALS: BP 143/55; PULSE 79; RESP 17; TEMP 97.9; O2SAT 90
[2025-04-19] VITALS (8 sets, daily range): BP systolic 114–178; BP diastolic 65–80; PULSE 70–82; RESP 14–18; TEMP 97.1–98.5; O2SAT 94–99
[2025-04-19 05:49] LABS: Anion Gap 8 (5-15); Carbon Dioxide 25 mmol/L (20-31); Chloride 104 mmol/L (98-107); Potassium 5.0 mmol/L (3.5-5.1); Sodium 137 mmol/L (136-145)
[2025-04-19 05:50] LABS: Calcium 9.2 mg/dL (8.7-10.4)
[2025-04-19 05:55] LABS: BUN/Creatinine Ratio 13.9 (10.0-20.0)
[2025-04-19 06:01] LABS: Blood Urea Nitrogen 38 mg/dL (9-23); Glucose 234 mg/dL (74-106)
[2025-04-19] MEDS: INSULIN LANTUS (GLARGINE) 1 /0.01ml (100units/ml) SC SCH (06:03)
--- NOTE | 2025-04-19 11:15 | DVHDSRES ---
Discharge Summary Date of Admission Resident Creating Document: GARY MOROCHO RESIDENT Apr 16, 2025 at 00:39 Date of Discharge: Apr 19, 2025 Admitting Diagnosis Facial Pain Labs/Diagnostic Data: Laboratory Results Test 04/19/25 07:55 04/19/25 05:07 04/18/25 04:52 04/17/25 04:26 POC Glucose 350 mg/dl (70-106) Sodium Level 137 mmol/L (136-145) Potassium Level 5.0 mmol/L (3.5-5.1) Chloride Level 104 mmol/L (98-107) Carbon Dioxide Level 25 mmol/L (20-31) Anion Gap 8 (5-15) Blood Urea Nitrogen 38 mg/dL (9-23) Creatinine 2.74 mg/dL (0.550-1.02) Glomerular Filtration Rate Calc 21 mL/min (>90) BUN/Creatinine Ratio 13.9 (10.0-20.0) Serum Glucose 234 mg/dL (74-106) Calcium Level 9.2 mg/dL (8.7-10.4) White Blood Count 8.7 10^3/uL (4.4-10.8) Red Blood Count 3.39 10^6/uL (4.0-5.20) Hemoglobin 10.1 g/dL (12.2-16.2) Hematocrit 29.8 % (36.0-46.0) Mean Corpuscular Volume 87.7 fL (80.0-100.0) Mean Corpuscular Hemoglobin 29.6 pg (28.0-32.0) Mean Corpuscular Hemoglobin Concent 33.8 g/dL (32.0-36.0) Red Cell Distribution Width 15.2 % (11.8-14.3) Platelet Count 415 10^3/uL (140-450) Mean Platelet Volume 9.2 fL (6.9-10.8) Neutrophils (%) (Auto) 60.2 % (37.0-80.0) Lymphocytes (%) (Auto) 29.3 % (10.0-50.0) Monocytes (%) (Auto) 6.8 % (0.0-12.0) Eosinophils (%) (Auto) 3.1 % (0.0-7.0) Basophils (%) (Auto) 0.6 % (0.0-2.0) Neutrophils # (Auto) 5.2 10 ^3/uL (1.6-8.6) Lymphocytes # (Auto) 2.5 10 ^3/uL (0.4-5.4) Monocytes # (Auto) 0.6 10 ^3/uL (0-1.3) Eosinophils # (Auto) 0.3 10 ^3/uL (0-0.8) Basophils # (Auto) 0 10 ^3/uL (0-0.2) Nucleated Red Blood Cells 0.1 % Hemoglobin A1c 12.9 % A1C (<5.7) Test 04/16/25 01:10 04/15/25 21:14 Urine Color Colorless (Yellow) Urine Clarity Turbid (Clear) Urine pH 6.0 (5.0-9.0) Urine Specific [place] 1.010 (1.001-1.035) Urine Protein 2+ (Negative) Urine Ketones Negative (Negative) Urine Blood 2+ /uL (Negative) Urine Nitrite Negative (Negative) Urine Bilirubin Negative (Negative) Urine Urobilinogen Normal mg/dL (Negative) Urine Leukocyte Esterase 1+ /uL (Negative) Urine RBC 8 /hpf (0 - 4) Urine Microscopic WBC 20 /HPF (0-5) Urine Squamous Epithelial Cells Mod /hpf (<5) Urine Bacteria None seen /hpf (None Seen) Urine Glucose 4+ mg/dL (Normal) Lactic Acid Level 1.2 mmol/L (0.4-2.0) Total Bilirubin < 0.2 mg/dL (0.2-1.0) Aspartate Amino Transferase (AST) 14 U/L (13-40) Alanine Aminotransferase (ALT) 15 U/L (7-40) Alkaline Phosphatase 115 U/L (46-116) B-Type Natriuretic Peptide 53.65 pg/mL (0-100) Total Protein 6.0 g/dL (5.7-8.2) Albumin 3.6 g/dL (3.2-4.8) Other Laboratory Tests 04/19/25 05:07 04/18/25 04:52 Brief Hx & Hospital Course: Patient is a 49 year old female with prior medical history of type 2 DM, CHF, CKD, hyperlipidemia, peripheral neuropathy, gastritis, and PUD, who presented to the ED with chief complaint of face pain. The patient states she woke up with the pain approximately 3 days ago and believes she was bitten by an insect in her sleep. Patient describes the pain as pulsatile, radiating from the wound on her right preauricular area to her jaw and towards her eyes, intensity 10/10, for which she took Tylenol with minimal relief. Associated with pulsatile headache, eye pain, decreased appetite, chills, and localized swelling. She states that the day before presenting, her blood sugars were out of control reaching 600 and she had a fever of 101 F, which prompted her to seek medical care. On evaluation in ED, initial labs show WBCs 12.3, lactic acid 1.2, Sodium 133, Potassium 3.6, creatinine 2.44, BUN 23, and serum glucose 361. UA was suggestive of UTI. Patient was admitted for further work up and was started on IV antibiotics and tramadol for pain. On admission, patient was started on IV ceftriaxone, however she states this caused generalized pruritus. Ceftriaxone had to be discontinued and Benadryl was administered, which resolved the symptoms. Due to suspicion of orbital cellulitis, Head CT without contrast was ordered. This showed right face subcutaneous fat stranding and skin thickening could be cellulitis, no fluid collection, ruling out orbital cellulitis. Antibiotic was switched to cefepime and pain regimen adjusted. On further investigation, her most recent HbA1c from 02/04/2025 was >14.0. Her insulin regimen was subsequently adjusted. Patient continued to progress favorably, tolerating insulin adjustments and antibiotics. On evaluation today, she refers she still has facial pain, but that it has improved. Facial swelling as decreased. She has been able to sleep, is tolerating oral diet, having bowel movements, and is ambulating without difficulty. Follow up labs today are within normal range, except for her glucose at 236. Blood cultures are negative. Vitals have remained stable. Patient is considered stable for discharge home with oral antibiotics, pain medication, and insulin regimen. We have educated her on the importance of adhering to her new insulin regimen for glycemic control, as well as lifestyle modifications like weight loss and diet modification. She has been instructed to complete her antibiotic treatment to its totality, and given recommendations like the use of hot pads for symptomatic relief. Additionally, she has been given an follow up appointment at the discharge clinic and recommendations to follow up with her PCP for continued monitoring. Physical Exam: General: Patient appears comfortable, alert and oriented in person place and time. Patient following commands. Obese. HEENT: Normocephalic, EOM are intact, raised erythematous ulcerated lesion in right preauricular area which is decreasing in size, normal appearing right eyelid, decreased pain to light touch of lesion, decreased pain to light touch of the face, moist mucous membrane Respiratory/pulmonary: Clear lungs bilaterally, vesicular murmurs present in almost all lung beckham, no associated crackles or wheezes. Abdomen: Obese, Normal bowel sounds, abdomen nondistended, no pain to palpation of suprapubic area, no palpable masses Extremities: there is no peripheral edema present at the lower extremities, no deformities Peripheral pulses 3+ radial right, 3+ radials soft. Pedal pulses slightly decreased. Skin: Raised erythematous lesion in the right preauricular area, no rashes or pruritus Neurological: Intact cranial nerves with no focal neurologic deficits. Decreased sensation in both feet Case discussed with Dr. Bynum Goals of care discussed with the patient for over 20 minutes she states she understands and agrees. Consults/Reason for consult Consulted endocrinology for evaluation of uncontrolled diabetes with multiple complications Operations or Procedures CT HEAD WITHOUT CONTRAST INDICATION: facial cellulitis EXAM DATE: 04/16/2025 03:28 PM COMPARISON: None RADIATION DOSE: CTDIvol: 54.73 mGy, DLP: 1078.7 mGy*cm PROCEDURE: CT scans of the head were obtained from the vertex to the skull base. Sagittal and coronal reconstructions were provided. All CT scans at this medical facility are performed using dose modulation techniques as appropriate to a performed exam including the following: Automated exposure control was utilized; adjustment of the MA and/or KV according to patient size; and use of iterative reconstruction technique. FINDINGS: There is sulcal and ventricular prominence. The brain otherwise shows normal morphology and mayes-white matter differentiation, without intracranial hemorrhage, extra-axial fluid collection, mass effect or acute large vessel infarct. The ventricles are normal in size. The basal cisterns are patent. The skull and visible facial bones are intact. The paranasal sinuses, mastoid air cells and middle ear cavities are well-aerated. Right face subcutaneous fat stranding and skin thickening could be cellulitis. No focal fluid collection visualized. IMPRESSION: Right face subcutaneous fat stranding and skin thickening could be cellulitis. No focal fluid collection visualized. No acute intracranial abnormality. Condition at Discharge: Stable Final Diagnosis/Problems List Right facial cellulitis Possible Acute Cystitis with Hematuria Type 2 Diabetes Mellitus with hyperglycemia, HbA1c 02/04/2025: >14 Chronic Diastolic Heart Failure, not exacerbated Chronic Kidney Disease with possibly progressing ESRD Obesity 30.8 Kg/m2 Tobacco Use Discharge Disposition: Home Discharge Instruct/Medications Diet: Consistent carbohydrate Activity: No Restrictions, As Tolerated Follow Up/Referral: Follow up in discharge clinic in 2 weeks Follow up with PCP in 1-2 week for referrals to cardiology and nephrology Medications: Augmentin [place] Insulin Scheduled Albuterol Sulfate (Ventolin Mdi), 90 MCG IN TID Amlodipine Besylate (Amlodipine Besylate), 1 TAB PO DAILY, (Reported) Aspirin (Aspirin Low Dose), 1 TAB PO DAILY, (Reported) Atorvastatin Calcium (Lipitor), 1 TAB PO DAILY, (Reported) Empagliflozin (Jardiance), 1 TAB PO DAILY, (Reported) Ferrous Sulfate (Ferrous Sulfate), 325 MG PO DAILY Furosemide (Furosemide), 1 TAB PO DAILY, (Reported) Gabapentin (Gabapentin), 400 MG PO BID, (Reported) Glipizide (Glipizide), 10 MG PO BID, (Reported) Insulin Glargine (Insulin Glargine), 46 UNIT SC QPM, (Reported) Insulin Lispro (Insulin Lispro Kwikpen), UNIT SC TID, (Reported) Metformin Hydrochloride (Metformin Hcl), 500 MG PO IBID, (Reported) Metoclopramide Hcl (Metoclopramide Hcl), 1 TAB PO TID, (Reported) Metoprolol Tartrate (Metoprolol Tartrate), 1 TAB PO BID, (Reported) Pantoprazole Sodium Sesquihydr (Protonix), 1 TAB PO DAILY, (Reported) Spironolactone (Spironolactone), 1 TAB PO DAILY, (Reported) Scheduled PRN Clindamycin Hcl (Cleocin), 300 MG PO Q8HP PRN Guaifenesin (Guaifenesin), 200 MG PO Q6HP PRN Hydrocodone-Acetaminophen (Hydrocodone Bitartrate/AC 10-325 mg), 1 TAB PO QID PRN Hydrocodone-Acetaminophen (Hydrocodone Bitartrate/AC 5-325 mg), 1 TAB PO Q6HP PRN Discharge Statement: "Patient was advised to return to the ER or call 911 if any headaches, dizziness, shortness of breath, chest pain, abdominal pain, bleeding, fevers, or worsening of medical condition. Patient was counseled about treatment plan, medications, possible side effects, patientverbalized understanding. All questions were answered to the best of my ability. This discharge took greater then 30 minutes in planning, reviewing documentation, counseling the patient, and discussing with other team members." ASSESSMENT ASSESSMENT Assessment Facial Cellulitis GARY MOROCHO RESIDENT Apr 19, 2025 11:15
[2025-04-19] MEDS ORDERED: AUG875T PO (11:27)
[2025-04-19] MEDS ORDERED: CARV6.2551 PO (11:27)
[2025-04-19] MEDS ORDERED: INSUINJ37 SC (11:27)
[2025-04-19] MEDS ORDERED: INSU100I4 SC ×2 (11:27→15:22)
[2025-04-19] MEDS: ACETAMINOPHEN 325 MG TAB PO PRN (13:22)
--- NOTE | 2025-04-19 16:38 | DVHPN2 ---
Consult Progress Note Date Seen: Apr 19, 2025 Subjective Patient reports: No new complaints Other Systems: History of Present Illness 49-year-old female with past medical history of type 2 diabetes mellitus, CHF, CKD, hypertension, [place] presented with complaints of facial pain on the left side. On Hospital presentation, patient had blood glucose of 400s, after which patient was started on mild sliding scale insulin. Endocrine was consulted for managing uncontrolled diabetes mellitus Patient mentioned that she was diagnosed with diabetes mellitus type 2 when she was in her 20s, patient is currently taking Jardiance 10 mg once daily, glipizide 10 mg b.i.d., insulin glargine 46 units q.p.m., metformin 500 mg b.i.d.. She mentioned she does not remember her hemoglobin A1c. Diabetes is managed by her primary care and has not seen rn documentation specialist. Denied any active complaints of fatigue, nausea, vomiting, polydipsia, polyuria. Past medical history type 2 diabetes mellitus, CHF, CKD, hypertension, NV Social history Denied smoking, alcohol, marijuana or IV drug intake Objective vital signs Vital Sign Date Time Temp Pulse Resp B/P (MAP) Pulse Ox O2 Delivery O2 Flow Rate FiO2 04/19/25 14:12 97.3 70 14 95 04/19/25 13:00 136/78 (97) 04/19/25 07:56 Room Air* 0 21 Total Intake and Output 04/18/25 04/18/25 04/19/25 15:00 23:00 07:00 Intake Total 980 ml Balance 980 ml medications Current Medications Medications Dose Ordered Sig/Mariel Route Start Time Stop Time Status Last Admin Dose Admin Furosemide 40 mg DAILY PO 04/16/25 10:00 04/19/25 10:02 40 MG Empaglifozin 10 mg DAILY PO 04/16/25 10:00 04/19/25 10:01 10 MG Amlodipine Besylate 10 mg DAILY PO 04/16/25 10:00 04/19/25 10:02 10 MG Gabapentin 400 mg BID PO 04/16/25 10:00 04/19/25 10:01 400 MG Atorvastatin Calcium 40 mg HS PO 04/16/25 22:00 04/18/25 21:15 40 MG Diagnostic Test (Pha) 1 strip IQ4HR 04/16/25 04:00 04/19/25 12:39 1 STRIP Dextrose 50 ml UD PRN IV 04/16/25 00:45 Ondansetron HCl 4 mg Q4HP PRN IV 04/16/25 00:45 Acetaminophen 650 mg Q6HP PRN PO 04/16/25 00:45 04/19/25 13:22 650 MG Cefepime HCl 50 ml @ 12.5 mls/hr DAILY IV 04/17/25 10:00 04/19/25 10:03 12.5 MLS/HR Insulin Human Lispro If BS<60, ... ACHS SC 04/16/25 17:00 04/19/25 12:59 8 UNITS Insulin Glargine 24 units QAM SC 04/19/25 07:00 Insulin Human Lispro 8 units AC SC 04/18/25 11:30 04/19/25 12:39 8 UNITS Carvedilol 6.25 mg Q12HR PO 04/18/25 10:00 04/19/25 10:02 6.25 MG Morphine Sulfate 2 mg Q4HPRN PRN IV 04/18/25 09:30 04/19/25 10:19 2 MG laboratory and microbiology Laboratory Tests 04/19/25 05:07 04/18/25 04:52 Test 04/19/25 05:07 Range/Units Serum Glucose 234 H 74-106 mg/dL Problem List/Assessment/Plan Problem List/Assessment/Plan Assessment/plan -Uncontrolled Type 2 Diabetes Mellitus with hyperglycemia, HbA1c 02/04/2025: >14 repeat HbA1c 12.9 04/17/25 -Right facial cellulitis -Possible Acute Cystitis with Hematuria -Chronic Diastolic Heart Failure -Chronic Kidney Disease -Obesity 30.8 Kg/m2 Plan Consistent carbohydrate diet Accu-Cheks a.c. HS Keep blood glucose between 140-180 Total extra insulin requirement through sliding scale in last 24 hours: 19 Increase insulin Lantus to 30 units daily HS, with insulin Humalog, 10 units pre meal and mild sliding scale insulin with Humalog We will monitor total insulin required per sliding scale for next 24 hours and readjust the dose. Outpatient Follow up with Endocrine. Thank your for consulting. Please feel free to reach out if you have any questions regarding the plan or need additional information Case discussion with Dr Caro. I independently examined the patient, reviewed all clinical data and formulated a plan for the aforementioned patient. I agree with the resident's assessment as above. Plan discussed with: Patient, Other Dietary Evaluation Review Comments: follow current diet Refer to outpatient Wt/DM management program upon d/c Expected Outcomes/Goals: gradual wt loss FARIDA RUTLEDGE RESIDENT Apr 19, 2025 16:38 SOLEDAD CARO MD Apr 20, 2025 12:49
[2025-04-19] MEDS: INSULIN LANTUS (GLARGINE) 1 /0.01ml (100units/ml) SC ONE (18:16)
[2025-04-19] MEDS: INSULIN LISPRO (HUMAN) 100 UNITS/ML ML SC SCH (18:17)
[2025-04-20] VITALS (8 sets, daily range): BP systolic 124–155; BP diastolic 68–79; PULSE 72–76; RESP 14–18; TEMP 97.7–98.7; O2SAT 94–98
--- NOTE | 2025-04-20 11:32 | DVHPNRES ---
Progress Note Date Seen: Apr 20, 2025 Resident Creating Document: BOGDAN FLORES RESIDENT Medical Necessity Reason Pt with a Central, PICC or Fol: No Subjective Review of Systems Patient is a 49 year old female with prior medical history of type 2 DM, CHF, CKD, hyperlipidemia, peripheral neuropathy, gastritis, and PUD, who presented to the ED with chief complaint of face pain. The patient states she woke up with the pain approximately 3 days ago and believes she was bitten by an insect in her sleep. Patient describes the pain as pulsatile, radiating from the wound on her right preauricular area to her jaw and towards her eyes, intensity 10/10, for which she took Tylenol with minimal relief. Associated with pulsatile headache, eye pain, decreased appetite, chills, and localized swelling. She states that the day before presenting, her blood sugars were out of control reaching 600 and she had a fever of 101 F, which prompted her to seek medical care. On evaluation in ED, initial labs show WBCs 12.3, lactic acid 1.2, Sodium 133, Potassium 3.6, creatinine 2.44, BUN 23, and serum glucose 361. UA was suggestive of UTI. Patient was admitted for further work up and was started on IV antibiotics and tramadol for pain. On admission, patient was started on IV ceftriaxone, however she states this caused generalized pruritus. Ceftriaxone had to be discontinued and Benadryl was administered, which resolved the symptoms. Due to suspicion of orbital cellulitis, Head CT without contrast was ordered. This showed rightface subcutaneous fat stranding and skin thickening could be cellulitis, no fluid collection. Antibiotic was switched to cefepime and pain regimen adjusted. On further investigation, her most recent HbA1c from 02/04/2025 was >14.0. Her insulin regimen was subsequently adjusted. Patient seen at bedside. Patient still complains of 6/10 pain and slight blurry vision on the right side of the face. Patient denies any nausea, vomiting, headaches, diarrhea, dizziness. Endo recommended Increase glargine to 40 units qhs Increase lispro to 15 units tid, and to follow up outpatient. Possible discharge today or tomorrow due to hyperglycemia. Objective vital signs Vital Sign Date Time Temp Pulse Resp B/P (MAP) Pulse Ox O2 Delivery O2 Flow Rate FiO2 04/20/25 10:57 151/73 04/20/25 10:56 75 04/20/25 10:54 16 04/20/25 08:43 97.7 98 97.7 04/19/25 19:30 Room Air* 0 21 Total Intake and Output 04/19/25 04/19/25 04/20/25 15:00 23:00 07:00 Intake Total 50 ml 1040 ml 1300 ml Balance 50 ml 1040 ml 1300 ml medications Current Medications Medications Dose Ordered Sig/Mariel Route Start Time Stop Time Status Last Admin Dose Admin Furosemide 40 mg DAILY PO 04/16/25 10:00 04/20/25 10:57 40 MG Empaglifozin 10 mg DAILY PO 04/16/25 10:00 04/20/25 10:56 10 MG Amlodipine Besylate 10 mg DAILY PO 04/16/25 10:00 04/20/25 10:55 10 MG Gabapentin 400 mg BID PO 04/16/25 10:00 04/20/25 10:55 400 MG Atorvastatin Calcium 40 mg HS PO 04/16/25 22:00 04/19/25 21:35 40 MG Diagnostic Test (Pha) 1 strip IQ4HR 04/16/25 04:00 04/19/25 21:45 1 STRIP Dextrose 50 ml UD PRN IV 04/16/25 00:45 Ondansetron HCl 4 mg Q4HP PRN IV 04/16/25 00:45 Acetaminophen 650 mg Q6HP PRN PO 04/16/25 00:45 04/19/25 13:22 650 MG Cefepime HCl 50 ml @ 12.5 mls/hr DAILY IV 04/17/25 10:00 04/20/25 10:53 12.5 MLS/HR Insulin Human Lispro If BS<60, ... ACHS SC 04/16/25 17:00 04/20/25 06:28 6 UNITS Carvedilol 6.25 mg Q12HR PO 04/18/25 10:00 04/20/25 10:56 6.25 MG Morphine Sulfate 2 mg Q4HPRN PRN IV 04/18/25 09:30 04/20/25 10:54 2 MG Insulin Human Lispro 10 units AC SC 04/19/25 17:00 04/20/25 06:28 10 UNITS Insulin Glargine 30 units HS SC 04/20/25 22:00 Examination General: Patient appears uncomfortable and in pain, alert and oriented in person place and time. Patient following commands. Obese. HEENT: Normocephalic, EOM are intact, presence of raised erythematous ulcerated lesion in right preauricular area which is decreasing in size, decreased swelling in right eyelid, pain to light touch of lesion, pain to light touch of majority of right side of the face, pain on palpation of right orbital area, pain on palpation of right tragus, dry mucous membrane Respiratory/pulmonary: Clear lungs bilaterally, vesicular murmurs present in almost all lung beckham, no associated crackles or wheezes. Abdomen: Obese, Normal bowel sounds, abdomen nondistended, minor pain to palpation of suprapubic area, no palpable masses Extremities: there is no peripheral edema present at the lower extremities, no deformities Peripheral pulses 3+ radial right, 3+ radials soft. Pedal pulses slightly decreased. Skin: Raised erythematous lesion in the right preauricular area, no rashes or pruritus Neurological: Intact cranial nerves with no focal neurologic deficits. Decreased sensation in both feet. laboratory and microbiology Laboratory Tests 04/19/25 05:07 04/18/25 04:52 Test 04/19/25 05:07 Range/Units Serum Glucose 234 H 74-106 mg/dL Microbiology Date/Time Source Procedure Growth Status 04/16/25 01:10 Voided Urine Urine Culture - Final Complete 04/15/25 21:13 Blood Blood Culture - Preliminary NO GROWTH AFTER 72 HOURS OF INCUBATION. Resulted Problem List/Assessment/Plan Problem List/Assessment/Plan Assessment and Plan: Right facial cellulitis -Ceftriaxone IV, discontinued -Cefepime 1g IV daily -Head CT: Right face subcutaneous fat stranding and skin thickening could be cellulitis. -Preliminary blood cultures: No growth at 24 hours -Ruled out orbital cellulitis Possible Acute Cystitis with Hematuria -Ceftriaxone IV, discontinued -Cefepime 1 g IV daily - urine culture shows >100,000 CFU/mL Mixed [place] Type 2 Diabetes Mellitus with hyperglycemia, HbA1c 02/04/2025: >14 -- Endo consulted and recomended to Increase glargine to 40 units qhs Increase lispro to 15 units tid, and to follow up outpatient -Accu-cheks -Carbohydrate consistent diet Chronic Diastolic Heart Failure -Continue home medications -Monitor I&O -Echocardiogram 04/07/2024: Normal left ventricular systolic function estimated EF 60%. Grade 1 diastolic function. -Cardiac diet Chronic Kidney Disease progressing to ESRD -Monitor I&O -Avoid nephrotoxic drugs -Monitor renal function Obesity 30.8 Kg/m2 Tobacco Use -Counseled on cessation of tobacco use for over 20 minutes. Case discussed with Dr. Cardoza Goals of care discussed with the patient for over 25 minutes who states she understands and agrees. Plan discussed with: Patient Dietary Evaluation Review Comments: follow current diet Refer to outpatient Wt/DM management program upon d/c Expected Outcomes/Goals: gradual wt loss Date of Service: Apr 20, 2025 Billing Provider: NATE CARDOZA DO Common Visit Codes: [id number] INP/OBS CARE(HIGH) BOGDAN FLORES RESIDENT Apr 20, 2025 11:32 NATE CARDOZA DO Apr 22, 2025 09:39
--- NOTE | 2025-04-20 12:57 | DVHPN2 ---
Progress Note - Dictate Date Seen: Apr 20, 2025 Medical Necessity Reason Pt with a Central, PICC or Fol: No Subjective No acute events overnight. Persistent prandial and fasting hyperglycemia. Patient denies eating any outside food. vital signs Vital Sign Date Time Temp Pulse Resp B/P (MAP) Pulse Ox O2 Delivery O2 Flow Rate FiO2 04/20/25 12:41 98.7 75 18 155/72 (99) 97 98.7 04/20/25 08:00 Room Air* 0 21 Total Intake and Output 04/19/25 04/19/25 04/20/25 15:00 23:00 07:00 Intake Total 50 ml 1040 ml 1300 ml Balance 50 ml 1040 ml 1300 ml medications Current Medications Medications Dose Ordered Sig/Mariel Route Start Time Stop Time Status Last Admin Dose Admin Furosemide 40 mg DAILY PO 04/16/25 10:00 04/20/25 10:57 40 MG Empaglifozin 10 mg DAILY PO 04/16/25 10:00 04/20/25 10:56 10 MG Amlodipine Besylate 10 mg DAILY PO 04/16/25 10:00 04/20/25 10:55 10 MG Gabapentin 400 mg BID PO 04/16/25 10:00 04/20/25 10:55 400 MG Atorvastatin Calcium 40 mg HS PO 04/16/25 22:00 04/19/25 21:35 40 MG Diagnostic Test (Pha) 1 strip IQ4HR 04/16/25 04:00 04/20/25 11:32 1 STRIP Dextrose 50 ml UD PRN IV 04/16/25 00:45 Ondansetron HCl 4 mg Q4HP PRN IV 04/16/25 00:45 Acetaminophen 650 mg Q6HP PRN PO 04/16/25 00:45 04/19/25 13:22 650 MG Cefepime HCl 50 ml @ 12.5 mls/hr DAILY IV 04/17/25 10:00 04/19/25 10:03 12.5 MLS/HR Insulin Human Lispro If BS<60, ... ACHS SC 04/16/25 17:00 04/20/25 11:32 8 UNITS Carvedilol 6.25 mg Q12HR PO 04/18/25 10:00 04/20/25 10:56 6.25 MG Morphine Sulfate 2 mg Q4HPRN PRN IV 04/18/25 09:30 04/20/25 10:54 2 MG Insulin Human Lispro 10 units AC SC 04/19/25 17:00 04/20/25 11:32 10 UNITS Insulin Glargine 30 units HS SC 04/20/25 22:00 laboratory and microbiology Laboratory Tests 04/19/25 05:07 04/18/25 04:52 Test 04/19/25 05:07 Range/Units Serum Glucose 234 H 74-106 mg/dL Problem List Assessment/plan # Uncontrolled type II DM with hyperglycemia # R facial cellulitis # ACute cystitis with hematuria # Chronic diastolic HF # CKD # Class 1 obesity - Increase glargine to 40 units qhs - Increase lispro to 15 units tidac - Lispro low SSI tidac, qhs - POC BG tidac, qhs - Hypoglycemia protocol Dietary Evaluation Review Comments: follow current diet Refer to outpatient Wt/DM management program upon d/c Expected Outcomes/Goals: gradual wt loss Plan discussed with: Patient SOLEDAD CARO MD Apr 20, 2025 12:57
[2025-04-20] MEDS: ACCU-CHEK COMFORT CURVE STRIP VI SCH (16:59)
[2025-04-20] MEDS: INSULIN LISPRO (HUMAN) 100 UNITS/ML ML SC SCH (17:02)
[2025-04-20] MEDS ORDERED: INSULIN LANTUS (GLARGINE) 1 /0.01ml (100units/ml) SC SCH (22:00)
[2025-04-20] MEDS: INSULIN LANTUS (GLARGINE) 1 /0.01ml (100units/ml) SC SCH (22:35)
[2025-04-21 01:00] VITALS: BP 138/77; PULSE 66; RESP 19; TEMP 97.7; O2SAT 98
[2025-04-21 05:00] VITALS: BP 125/72; PULSE 67; RESP 18; TEMP 97.9; O2SAT 98
[2025-04-21 07:44] VITALS: PULSE 67; RESP 16; O2SAT 97
[2025-04-21 09:00] VITALS: BP 142/73; PULSE 67; RESP 16; TEMP 98.2; O2SAT 95
--- NOTE | 2025-04-21 10:14 | DVHPN2 ---
Progress Note - Dictate Date Seen: Apr 21, 2025 Medical Necessity Reason Pt with a Central, PICC or Fol: No Subjective Some fasting hyperglycemia otherwise appropriate postprandial values. vital signs Vital Sign Date Time Temp Pulse Resp B/P (MAP) Pulse Ox O2 Delivery O2 Flow Rate FiO2 04/21/25 09:32 67 142/73 04/21/25 09:00 98.2 16 95 98.2 04/21/25 07:44 Room Air* 0 21 Total Intake and Output 04/20/25 04/20/25 04/21/25 15:00 23:00 07:00 Intake Total 1100 ml 1150 ml 800 ml Balance 1100 ml 1150 ml 800 ml medications Current Medications Medications Dose Ordered Sig/Mariel Route Start Time Stop Time Status Last Admin Dose Admin Furosemide 40 mg DAILY PO 04/16/25 10:00 04/21/25 09:32 40 MG Empaglifozin 10 mg DAILY PO 04/16/25 10:00 04/21/25 09:31 10 MG Amlodipine Besylate 10 mg DAILY PO 04/16/25 10:00 04/21/25 09:31 10 MG Gabapentin 400 mg BID PO 04/16/25 10:00 04/21/25 09:33 400 MG Atorvastatin Calcium 40 mg HS PO 04/16/25 22:00 04/20/25 22:33 40 MG Dextrose 50 ml UD PRN IV 04/16/25 00:45 Ondansetron HCl 4 mg Q4HP PRN IV 04/16/25 00:45 Acetaminophen 650 mg Q6HP PRN PO 04/16/25 00:45 04/19/25 13:22 650 MG Cefepime HCl 50 ml @ 12.5 mls/hr DAILY IV 04/17/25 10:00 04/21/25 09:30 12.5 MLS/HR Insulin Human Lispro If BS<60, ... ACHS SC 04/16/25 17:00 04/21/25 06:11 4 UNITS Carvedilol 6.25 mg Q12HR PO 04/18/25 10:00 04/21/25 09:32 6.25 MG Morphine Sulfate 2 mg Q4HPRN PRN IV 04/18/25 09:30 04/21/25 03:46 2 MG Diagnostic Test (Pha) 1 strip ACHS 04/20/25 17:00 04/21/25 06:13 1 STRIP Insulin Human Lispro 15 units AC SC 04/20/25 17:00 04/21/25 06:13 15 UNITS Insulin Glargine 40 units HS SC 04/20/25 22:00 04/20/25 22:35 40 UNITS objective Gen - no acute distress HEENT - no thyromegaly CV - RRR, no m/r/g Resp - CTAB Ext - no edema laboratory and microbiology Laboratory Tests 04/19/25 05:07 04/18/25 04:52 Test 04/19/25 05:07 Range/Units Serum Glucose 234 H 74-106 mg/dL Problem List Assessment/plan # Uncontrolled type II DM with hyperglycemia # R facial cellulitis # ACute cystitis with hematuria # Chronic diastolic HF # CKD # Class 1 obesity - Increase glargine to 48 units qhs - Continue lispro 15 units tidac - Lispro low SSI tidac, qhs - POC BG tidac, qhs - Hypoglycemia protocol Dietary Evaluation Review Comments: follow current diet Refer to outpatient Wt/DM management program upon d/c Expected Outcomes/Goals: gradual wt loss Plan discussed with: Patient SOLEDAD CARO MD Apr 21, 2025 10:14
[2025-04-21] MEDS: INSULIN LANTUS (GLARGINE) 1 /0.01ml (100units/ml) SC ONE (11:50)
[2025-04-21 13:00] VITALS: BP 141/72; PULSE 66; RESP 17; TEMP 98; O2SAT 98
--- NOTE | 2025-04-21 15:02 | DVHPNRES ---
Progress Note Date Seen: Apr 21, 2025 Resident Creating Document: GARY MOROCHO RESIDENT Medical Necessity Reason Pt with a Central, PICC or Fol: No Subjective Review of Systems Patient is a 49 year old female with prior medical history of type 2 DM, CHF, CKD, hyperlipidemia, peripheral neuropathy, gastritis, and PUD, who presented to the ED with chief complaint of face pain. The patient states she woke up with the pain approximately 3 days ago and believes she was bitten by an insect in her sleep. Patient describes the pain as pulsatile, radiating from the wound on her right preauricular area to her jaw and towards her eyes, intensity 10/10, for which she took Tylenol with minimal relief. Associated with pulsatile headache, eye pain, decreased appetite, chills, and localized swelling. She states that the day before presenting, her blood sugars were out of control reaching 600 and she had a fever of 101 F, which prompted her to seek medical care. On evaluation in ED, initial labs show WBCs 12.3, lactic acid 1.2, Sodium 133, Potassium 3.6, creatinine 2.44, BUN 23, and serum glucose 361. UA was suggestive of UTI. Patient was admitted for further work up and was started on IV antibiotics and tramadol for pain. On admission, patient was started on IV ceftriaxone, however she states this caused generalized pruritus. Ceftriaxone had to be discontinued and Benadryl was administered, which resolved the symptoms. Due to suspicion of orbital cellulitis, Head CT without contrast was ordered. This showed rightface subcutaneous fat stranding and skin thickening could be cellulitis, no fluid collection. Antibiotic was switched to cefepime and pain regimen adjusted. On further investigation, her most recent HbA1c from 02/04/2025 was >14.0. Her insulin regimen was subsequently adjusted. Patient seen at bedside. Patient was discharged on 04/19/2025, however, due to elevated glucose levels she remained. Patient is oriented, states that she feels well, the pain is still present but is improving. States her facial swelling as largely resolved, except for the area of the spider bite, however that area is also becoming more manageable with the help of hot pads and hot compresses. She denies any fever, nausea, vomiting, chest pain, or other symptoms. Vitals have been within normal range. Her blood glucose has been more controlled with with some fasting hyperglycemia, but otherwise appropriate postrandial values. Endocrinology adjusted insulin regimen once more. Patient will return home today with new insulin regimen, augmentin to complete antibiotic therapy at home, and recommendations for hygiene and compress use while the area in question continues to heal. Additionally, recommendations for lifestyle modifications have been made with aims to control patient's blood sugar. Objective vital signs Vital Sign Date Time Temp Pulse Resp B/P (MAP) Pulse Ox O2 Delivery O2 Flow Rate FiO2 04/21/25 13:00 98.0 66 17 141/72 (95) 98 98.0 04/21/25 07:44 Room Air* 0 21 Total Intake and Output 04/20/25 04/20/25 04/21/25 15:00 23:00 07:00 Intake Total 1100 ml 1150 ml 800 ml Balance 1100 ml 1150 ml 800 ml medications Current Medications Medications Dose Ordered Sig/Mariel Route Start Time Stop Time Status Last Admin Dose Admin Furosemide 40 mg DAILY PO 04/16/25 10:00 04/21/25 09:32 40 MG Empaglifozin 10 mg DAILY PO 04/16/25 10:00 04/21/25 09:31 10 MG Amlodipine Besylate 10 mg DAILY PO 04/16/25 10:00 04/21/25 09:31 10 MG Gabapentin 400 mg BID PO 04/16/25 10:00 04/21/25 09:33 400 MG Atorvastatin Calcium 40 mg HS PO 04/16/25 22:00 04/20/25 22:33 40 MG Dextrose 50 ml UD PRN IV 04/16/25 00:45 Ondansetron HCl 4 mg Q4HP PRN IV 04/16/25 00:45 Acetaminophen 650 mg Q6HP PRN PO 04/16/25 00:45 04/21/25 11:52 650 MG Cefepime HCl 50 ml @ 12.5 mls/hr DAILY IV 04/17/25 10:00 04/21/25 09:30 12.5 MLS/HR Insulin Human Lispro If BS<60, ... ACHS SC 04/16/25 17:00 04/21/25 11:51 3 UNITS Carvedilol 6.25 mg Q12HR PO 04/18/25 10:00 04/21/25 09:32 6.25 MG Morphine Sulfate 2 mg Q4HPRN PRN IV 04/18/25 09:30 04/21/25 03:46 2 MG Diagnostic Test (Pha) 1 strip ACHS 04/20/25 17:00 04/21/25 11:49 1 STRIP Insulin Human Lispro 15 units AC SC 04/20/25 17:00 04/21/25 11:51 15 UNITS Insulin Glargine 48 units HS SC 04/21/25 22:00 laboratory and microbiology Laboratory Tests 04/19/25 05:07 04/18/25 04:52 Test 04/19/25 05:07 Range/Units Serum Glucose 234 H 74-106 mg/dL Microbiology Date/Time Source Procedure Growth Status 04/16/25 01:10 Voided Urine Urine Culture - Final Complete 04/15/25 21:13 Blood Blood Culture - Final NO GROWTH AFTER 5 DAYS OF INCUBATION. Complete Problem List/Assessment/Plan Problem List/Assessment/Plan Assessment and Plan: Right facial cellulitis -Ceftriaxone IV, discontinued -Cefepime 1g IV daily -Head CT: Right face subcutaneous fat stranding and skin thickening could be cellulitis. -Blood culture: Negative at 5 days of growth -Ruled out orbital cellulitis Possible Acute Cystitis with Hematuria -Ceftriaxone IV, discontinued -Cefepime 1 g IV daily -Urine culture: >100,000 CFYU/mL mixed parminder Type 2 Diabetes Mellitus with hyperglycemia, HbA1c 02/04/2025: >14 -Lantus 48, Lispro 15 Lispro SSI -Accu-cheks -Carbohydrate consistent diet Chronic Diastolic Heart Failure -Continue home medications -Monitor I&O -Echocardiogram 04/07/2024: Normal left ventricular systolic function estimated EF 60%. Grade 1 diastolic function. -Cardiac diet Chronic Kidney Disease with possible ESRD Obesity 30.8 Kg/m2 Tobacco Use -Counseled on cessation of tobacco use for over 20 minutes. Case discussed with Dr. Cardoza. Goals of care discussed with the patient for over 25 minutes who states she understands and agrees. Plan discussed with: Patient My Orders My Orders Orders - GARY MOROCHO RESIDENT Procedure Category Date Status Time Discharge DISCHARGE 04/21/25 Transmitted 13:01 Dietary Evaluation Review Comments: follow current diet Refer to outpatient Wt/DM management program upon d/c Expected Outcomes/Goals: gradual wt loss Date of Service: Apr 21, 2025 Billing Provider: NATE CARDOZA DO Common Visit Codes: [id number] INP/OBS CARE(HIGH) GARY MOROCHO RESIDENT Apr 21, 2025 15:02 NATE CARDOZA DO Apr 22, 2025 09:38
[2025-04-21] MEDS ORDERED: INSULIN LANTUS (GLARGINE) 1 /0.01ml (100units/ml) SC SCH (22:00)
== END 2025-04-21 15:00 | disposition home or self-care (01) | DRG 383 ==
LOC: ER 20:05 → OVERFLOW 04-16 00:39 → CENTRAL 04-16 18:43
PROVIDERS: ADMIT Student in an Organized Health Care Education/Training Program; ATTEND Student in an Organized Health Care Education/Training Program
DX: L03.211 Cellulitis of face (principal); I13.2 Hypertensive heart and chronic kidney disease with heart failure and with stage 5 chronic kidney disease, or end stage renal disease; N18.6 End stage renal disease; E11.22 Type 2 diabetes mellitus with diabetic chronic kidney disease; N30.01 Acute cystitis with hematuria; L02.01 Cutaneous abscess of face; I50.32 Chronic diastolic (congestive) heart failure; E11.65 Type 2 diabetes mellitus with hyperglycemia; E66.811 Obesity, class 1; F17.210 Nicotine dependence, cigarettes, uncomplicated; E11.42 Type 2 diabetes mellitus with diabetic polyneuropathy; S00.86XA Insect bite (nonvenomous) of other part of head, initial encounter; Z87.442 Personal history of urinary calculi; Z68.30 Body mass index [BMI] 30.0-30.9, adult; Z88.5 Allergy status to narcotic agent; Z79.84 Long term (current) use of oral hypoglycemic drugs; Z79.4 Long term (current) use of insulin; Z79.82 Long term (current) use of aspirin; Z90.49 Acquired absence of other specified parts of digestive tract; Z98.891 History of uterine scar from previous surgery; W57.XXXA Bitten or stung by nonvenomous insect and other nonvenomous arthropods, initial encounter; Y93.89 Activity, other specified; Y92.89 Other specified places as the place of occurrence of the external cause; Y99.8 Other external cause status
CPT/HCPCS: 36415; 70450; 80048; 80053; 81001; 82962; 83036; 83605; 83880; 85025; 87040; 87086; 96365; 96375; G0378; J1815; J1885

== ENCOUNTER 2025-05-09 16:34 | Inpatient (IN) | payer MEDICAID ==
[~2025-05-09] VITALS: Ht 154.9 cm; Wt 76.0 kg
[~2025-05-09 16:34] MED LIST changes: +AUG875T PO; +CARV6.2551 PO; -CLIN300C2 PO; -GUA200LQ PO; -HYDR-4798 PO; -HYDR-4902 PO; +INSU100I4 SC; -INSU100I54 SC; -INSU100S6 SC; +INSUINJ37 SC; -METO-158 PO
--- NOTE | 2025-05-09 17:12 | ED.PDOC ---
History of Present Illness HPI Comments This is a 49-year-old female with past medical history of type 2 diabetes mellitus, hypertension, CHF, CKD, peripheral neuropathy presented to the ED with a chief complaint of epigastric and upper abdominal pain since 3:00 a.m. with bloody stool prior to this visit. The patient stated that since 3:00 a.m. she started having intractable epigastric and upper abdominal pain which is a sharp pain, 9/10, localized without any aggravating and relieving factor and associated with black stool, per rectal bleeding and nausea. She mentioned that last year she had this kind of pain and underwent endoscopy and later diagnosed with gastritis with a bleeding gastric ulcer. She denies fever, chills, shortness of breath, vomiting, dysuria, hematuria or any altered bowel habit. Chief Complaint: Abdominal Pain Time Seen by MD: 16:46 Primary Care Provider: unknown Allergies: Coded Allergies: Codeine (Verified Allergy, Unknown, 03/20/19) Home Meds Active Scripts Insulin Lispro (Humalog Kwikpen) 100 Unit/Ml Inj, 10 UNIT SC TID for 30 Days, #9 INJ Please take 8 units before each meal 3 times aday. Prov:DERIK AVINA RESIDENT 04/19/25 Carvedilol (Carvedilol) 6.25 Mg Tab, 1 TAB PO BID for 30 Days, #60 TAB 1 Refill Prov:DERIK AVINA RESIDENT 04/19/25 Insulin Glargine (Lantus Solostar) 100 Unit/Ml Inj, 24 UNIT SC QAM for 30 Days, #9 INJ Please take 24 unit Lantus at QAM daily. Prov:DERIK AVINA RESIDENT 04/19/25 Amoxicillin & Pot Clavulanate (AUGMENTIN TABLET) 875 Mg Tb, 875 MG PO BID for 7 Days, #14 TAB Prov:DERIK AVINA RESIDENT 04/19/25 Albuterol Sulfate (VENTOLIN MDI) 90 Mcg Ih, 90 MCG IN TID for 5 Days, #1 INH Prov:PARISH JENSEN RESIDENT 10/26/24 Ferrous Sulfate (Ferrous Sulfate) 325 Mg Tab, 325 MG PO DAILY for 30 Days, #30 TAB 2 Refills Prov:ANDREA JOSHUA RESIDENT 04/07/24 Reported Medications Glipizide (Glipizide) 10 Mg Tab, 10 MG PO BID for 30 Days, MG 02/05/25 Metformin Hydrochloride (Metformin Hcl) 500 Mg Tab, 500 MG PO IBID for 30 Days, MG 02/05/25 Spironolactone (Spironolactone) 25 Mg Tab, 1 TAB PO DAILY for 30 Days, #30 09/04/24 Amlodipine Besylate (Amlodipine Besylate) 10 Mg Tab, 1 TAB PO DAILY for 90 Days, #90 09/04/24 Pantoprazole Sodium Sesquihydr (Protonix) 40 Mg Tab, 1 TAB PO DAILY for 90 Days, #90 09/04/24 Metoclopramide Hcl (Metoclopramide Hcl) 5 Mg Tab, 1 TAB PO TID for 90 Days, #270 09/04/24 Gabapentin (Gabapentin) 100 Mg Cap, 400 MG PO BID for 90 Days, #180 09/04/24 Furosemide (Furosemide) 40 Mg Tab, 1 TAB PO DAILY for 90 Days, #90 09/04/24 Empagliflozin (Jardiance) 10 Mg Tab, 1 TAB PO DAILY for 90 Days, #90 09/04/24 Atorvastatin Calcium (Lipitor) 40 Mg Tab, 1 TAB PO DAILY for 90 Days, #90 09/04/24 Aspirin (Aspirin Low Dose) 81 Mg Chw, 1 TAB PO DAILY for 90 Days, #90 09/04/24 Information Source: Patient Mode of Arrival: EMS Severity: Moderate Timing: Hours Duration: Since onset Prehospital treatment: None Past Medical History PAST MEDICAL HISTORY: CHF, CKF, DM, HTN, Kidney Stones, [place] Surgical History: Appendectomy, Cholecystectomy, LEGAL [employer] SPECIALIST History: No Pertinent LEGAL [employer]S SPECIALIST History Family History Family History: Unknown Social History Smoker: Cigarettes, Less Than 1 Pack/Day Alcohol: Heavy Drugs: Marijuana Lives In: Home Constitutional: reports: chills; denies: diaphoresis, fatigue, fever, malaise, sweats, weakness, others EENTM: denies: blurred vision, double vision, ear bleeding, ear discharge, ear drainage, ear pain, ear ringing, eye pain, eye redness, hearing loss, mouth pain, mouth swelling, nasal discharge, nose bleeding, nose congestion, nose p ain, photophobia, tearing, throat pain, throat swelling, voice changes, others Respiratory: denies: cough, hemoptysis, orthopnea, SOB at rest, shortness of breath, SOB with excertion, stridor, wheezing, others Cardiovascular: denies: chest pain, dizzy spells, diaphoresis, Dyspnea on exertion, edema, irregular heart beat, left arm pain, lightheadedness, palpitations, PND, syncope, others Gastrointestinal: reports: abdominal pain, melena, nausea, rectal bleeding; denies: abdomen distended, blood streaked bowels, constipated, diarrhea, dysphagia, difficulty swallowing, hematemesis, poor appetite, poor fluid intake, rectal pain, vomiting, others Genitourinary: denies: abnormal vagina bleeding, burning, dyspareunia, dysuria, flank pain, frequency, hematuria, incontinence, pain, , vagina discharge, urgency, others Neurological: denies: dizziness, fainting, headache, left sided numbness, left sided weakness, numbness, paresthesia, pre-existing deficit, right sided numbness, right sided weakness, seizure, speech problems, tingling, tremors, weakness, others Musculoskeletal: denies: back pain, gout, joint pain, joint swelling, muscle pain, muscle stiffness, neck pain, others Integumetry: denies: bruises, change in color, change in hair/nails, dryness, laceration, lesions, lumps, rash, wounds, others Allergic/Immunocompromised: denies: Difficulty Healing, Frequent Infections, Hives, Itching, others Hematologic/Lymphatic: denies: anemia, blood clots, easy bleeding, easy bruising, swollen glands, others Endocrine: denies: excessive hunger, excessive sweating, excessive thirst, excessive urination, flushing, intolerance to cold, intolerance to heat, unexplained weight gain, unexplained weight loss, others Psychiatric: denies: anxiety, bipolar disorder, depression, hopeless, panic disorder, schizophrenia, sleepless, suicidal, others Physical Exam General Appearance: Mild Distress HEENT: Normal ENT Inspection, Pharynx Normal, TMs Normal Neck: Full Range of Motion, Non-Tender, Normal, Normal Inspection Respiratory: Chest Non-Tender, Lungs Clear, No Accessory Muscle Use, No Respiratory Distress, Normal Breath Sounds Cardiovascular: No Edema, No JVD, No Murmur, No Gallop, Normal Peripheral Pulses, Regular Rate/Rhythm Breast Exam: Deferred Gastrointestinal: Epigastric, No Organomegaly, No Pulsatile Mass, Normal Bowel Sounds, RUQ, Tenderness Genitalia: Deferred Pelvic: Deferred Rectal: Deferred Extremities: No calf tenderness, Normal capillary refill, Normal inspection, Normal range of motion, Non-tender, No pedal edema Neurologic: NOT DONE Cerebellar Function: NOT DONE Reflexes: NOT DONE Skin: NOT DONE Peripheral Pulses: 2+ carotid (R), 2+ carotid (L), 2+ femoral (R), 2+ femoral (L), 2+ dorsalis pedis (R), 2+ dorsalis pedis (L), 2+ Radial (R), 2+ Radial (L), 2+ Brachial (R), 2+ Brachial (L) Lymphatic: NOT DONE Was a procedure done? Was a procedure done?: No Differential Dx Considerations may include: GI bleeding, gastritis, PUD, pancreatitis, diverticulitis, colitis, pyelonephritis, UTI X-Ray, Labs, Meds, VS Vital Signs Date Time Temp Pulse Resp B/P (MAP) Pulse Ox O2 Delivery O2 Flow Rate FiO2 05/09/25 17:21 80 17 147/81 05/09/25 17:18 80 17 98 Room Air 05/09/25 17:18 98.1 80 17 147/81 (103) 98 98.1 05/09/25 16:48 75 05/09/25 16:41 98.0 80 18 137/77 100 98.0 Lab Test 05/09/25 17:41 05/09/25 17:13 Range/Units White Blood Count 9.1 4.4-10.8 10^3/uL Red Blood Count 3.45 L 4.0-5.20 10^6/uL Hemoglobin 10.3 L 12.2-16.2 g/dL Hematocrit 30.1 L 36.0-46.0 % Mean Corpuscular Volume 87.1 80.0-100.0 fL Mean Corpuscular Hemoglobin 29.7 28.0-32.0 pg Mean Corpuscular Hemoglobin Concent 34.1 32.0-36.0 g/dL Red Cell Distribution Width 14.8 H 11.8-14.3 % Platelet Count 439 140-450 10^3/uL Mean Platelet Volume 8.9 6.9-10.8 fL Neutrophils (%) (Auto) 60.8 37.0-80.0 % Lymphocytes (%) (Auto) 29.9 10.0-50.0 % Monocytes (%) (Auto) 5.9 0.0-12.0 % Eosinophils (%) (Auto) 2.9 0.0-7.0 % Basophils (%) (Auto) 0.5 0.0-2.0 % Neutrophils # (Auto) 5.6 1.6-8.6 10 ^3/uL Lymphocytes # (Auto) 2.7 0.4-5.4 10 ^3/uL Monocytes # (Auto) 0.5 0-1.3 10 ^3/uL Eosinophils # (Auto) 0.3 0-0.8 10 ^3/uL Basophils # (Auto) 0 0-0.2 10 ^3/uL Nucleated Red Blood Cells 0.0 % Sodium Level 134 L 136-145 mmol/L Potassium Level 4.0 3.5-5.1 mmol/L Chloride Level 103 98-107 mmol/L Carbon Dioxide Level 22 20-31 mmol/L Anion Gap 9 5-15 Blood Urea Nitrogen 29 H 9-23 mg/dL Creatinine 2.36 H 0.550-1.02 mg/dL Glomerular Filtration Rate Calc 25 >90 mL/min BUN/Creatinine Ratio 12.3 10.0-20.0 Serum Glucose 256 H 74-106 mg/dL Calcium Level 8.4 L 8.7-10.4 mg/dL Total Bilirubin 0.2 0.2-1.0 mg/dL Aspartate Amino Transferase (AST) 9 L 13-40 U/L Alanine Aminotransferase (ALT) < 9 7-40 U/L Alkaline Phosphatase 95 46-116 U/L B-Type Natriuretic Peptide 65.77 0-100 pg/mL Total Protein 5.7 5.7-8.2 g/dL Albumin 3.5 3.2-4.8 g/dL POC Glucose 273 H 70-106 mg/dl Current Medications Medications (Trade) Dose Ordered Sig/Mariel Route Start Time Stop Time Status Last Admin Pantoprazole Sodium (Protonix) 40 mg ONCE ONCE IV 05/09/25 17:00 05/09/25 17:04 DC 05/09/25 17:21 Sodium Chloride 500 ml @ 500 mls/hr Q1H ONCE IV 05/09/25 17:00 05/09/25 17:59 DC 05/09/25 17:22 Morphine Sulfate 2 mg ONCE ONCE IV 05/09/25 17:00 05/09/25 17:04 DC 05/09/25 17:21 X-Ray, Labs, Meds, VS Comment COMPUTERIZED TOMOGRAPHY ABDOMEN AND PELVIS WITHOUT CONTRAST REASON FOR EXAM: Abdominal pain COMPARISON: CT CT AB PEL WO CON-NO ORAL OR IV on DOS: 10/23/24, US PELVIC on DOS: 07/20/24, CT CT AB PEL WO CON-NO ORAL OR IV on DOS: 07/19/24, US PELVIC on DOS: 11/20/23, US PELVIC on DOS: 08/09/23 TECHNIQUE: Spiral scans were acquired from the diaphragm to the symphysis pubis without intravenous contrast administration. 2-D coronal and sagittal reformatted images were provided. Radiation optimization: All CT scans at this facility use at least one of these dose optimization techniques: Automated exposure control mA and/or kV adjustment per patient size (includes targeted exams where dose is matched to clinical indication) or iterative reconstruction. RADIATION DOSE: CTDI: 17.62 mGy DLP: 954.09 mGy-cm FINDINGS: The visualized lung bases are grossly clear. There is no pleural effusion. There is no pericardial effusion. The spleen is not enlarged. The liver is normal in size and contour. Evaluation of the abdominal organs is suboptimal in the absence of intravenous contrast. The gallbladder is not seen and is likely absent. Unenhanced appearance of the pancreas is grossly unremarkable. The adrenal glands are normal. There is moderate nonspecific bilateral perinephric stranding, unchanged from the prior study. There is no hydronephrosis of either kidney. There is no renal, ureteral, or bladder calculus. The ovaries are within normal limits. There is a 4.0 cm cyst within the right cervix thought to represent a large nabothian cyst. No free fluid is identified in the abdomen or pelvis. There is no pathologic lymphadenopathy by size criteria. There is no abdominal aortic aneurysm. There is no distention of the small bowel to suggest obstruction. The colonic stool burden is small to moderate. The appendix is absent. No acute osseous abnormality is identified. IMPRESSION: Unchanged moderate nonspecific bilateral perinephric stranding. Correlate with clinical history and urinalysis. No renal or ureteral calculus is identified. No hydronephrosis of either kidney. There is a 4 cm cyst within the cervix felt to represent a large nabothian cyst. Images Reviewed?: Images reviewed and evaluated by me Time of 1ST Reevaluation: 18:49 Reevaluation 1ST: Unchanged Patient Education/Counseling: Diagnosis, Treatment Family Education/Counseling: Other Comments This is a 49 years old female presented to the ER with chief complaint of epigastric and upper abdominal pain, bloody stool and nausea. Initial physical exam demonstrated mild tenderness in the epigastric and upper abdomen CBC demonstrated mild hypochromic microcytic anemia likely secondary to CKD. BMP showed elevated BUN, creatinine and glucose UA, lipase, lactic acid and blood cultures are pending CT abdomen pelvis without contrast showed moderate fat stranding in bilateral kidneys possible pyelonephritis The patient will need inpatient admission for further evaluation and management. SEPSIS Sepsis Screen Date sepsis recognized/suspect: May 09, 2025 Time Sepsis recognized/suspect: 1645 Recent Procedure: No On Antibiotic Therapy: No Respiratory Rate >20: No Heart Rate >90: No Temp<36 C (96.8 F) or >38.3 C: No SBP <90 or MAP <65 mmHG: No New Acute Mental Status Change: No Is the patient on CPAP, BIPAP,: No Physician Orders Electrocardigram (05/09/25 16:47) Urinalysis (05/09/25 16:59) Ct Ab Pel Wo Con-No Oral Or Iv (05/09/25 16:59) Npo (Nothing By Mouth) Diet (05/09/25 Dinner) Saline Lock (05/09/25 17:09) Lipase (05/09/25 18:38) Lactic Acid W/ Reflex Order (05/09/25 18:39) Blood Culture (05/09/25 18:39) Stool Occult Blood (05/09/25 18:40) Vital Signs Date Time Temp Pulse Resp B/P (MAP) Pulse Ox O2 Delivery O2 Flow Rate FiO2 05/09/25 17:21 80 17 147/81 05/09/25 17:18 80 17 98 Room Air 05/09/25 17:18 98.1 80 17 147/81 (103) 98 98.1 05/09/25 16:48 75 05/09/25 16:41 98.0 80 18 137/77 100 98.0 Laboratory Tests Test 05/09/25 17:41 White Blood Count 9.1 10^3/uL (4.4-10.8) Medications Medications Dose Ordered Sig/Mariel Route Start Time Stop Time Status Last Admin Dose Admin Morphine Sulfate 2 mg ONCE ONCE IV 05/09/25 17:00 05/09/25 17:04 DC 05/09/25 17:21 Pantoprazole Sodium 40 mg ONCE ONCE IV 05/09/25 17:00 05/09/25 17:04 DC 05/09/25 17:21 Sodium Chloride 500 ml @ 500 mls/hr Q1H ONCE IV 05/09/25 17:00 05/09/25 17:59 DC 05/09/25 17:22 Departure 1 Departure Time of Disposition: 18:50 Impression: Primary Impression: GI bleeding Additional Impression: Pyelonephritis Disposition: 09 ADMITTED INPATIENT Admit to: Tele Condition: Guarded Critical Care Note Critical Care Time?: No Stability Stability form required: DERIK Kwon RESIDENT May 09, 2025 17:12
[2025-05-09] MEDS: PANTOPRAZOLE 40 MG/10 ML VIAL INJ IV ONE (17:21)
[2025-05-09] MEDS: MORPHINE SULFATE INJ 2 MG/ml SYRG IV ONE (17:21)
[2025-05-09] MEDS: SODIUM CHLORIDE 0.9% 500 ML IV ONE (17:22)
[2025-05-09 18:08] LABS: Hematocrit 30.1 % (36.0-46.0); Hemoglobin 10.3 g/dL (12.2-16.2); Mean Corpuscular Hemoglobin 29.7 pg (28.0-32.0); Mean Corpuscular Volume 87.1 fL (80.0-100.0); Nucleated Red Blood Cells % 0.0 %
--- NOTE | 2025-05-09 18:17 | DVH ---
COMPUTERIZED TOMOGRAPHY ABDOMEN AND PELVIS WITHOUT CONTRAST REASON FOR EXAM: Abdominal pain COMPARISON: CT CT AB PEL WO CON-NO ORAL OR IV on DOS: 10/23/24, US PELVIC on DOS: 07/20/24, CT CT AB P EL WO CON-NO ORAL OR IV on DOS: 07/19/24, US PELVIC on DOS: 11/20/23, US PELVIC on DOS: 08/09/23 TECHNIQUE: Spiral scans were acquired from the diaphragm to the symphysis pubis without intravenous c ontrast administration. 2-D coronal and sagittal reformatted images were provided. Radiation optimiza tion: All CT scans at this facility use at least one of these dose optimization techniques: Automated exposure control mA and/or kV adjustment per patient size (includes targeted exams where dose is mat ched to clinical indication) or iterative reconstruction. RADIATION DOSE: CTDI: 17.62 mGy DLP: 954.09 mGy-cm FINDINGS: The visualized lung bases are grossly clear. There is no pleural effusion. There is no pericardial e ffusion. The spleen is not enlarged. The liver is normal in size and contour. Evaluation of the abdominal org ans is suboptimal in the absence of intravenous contrast. The gallbladder is not seen and is likely a bsent. Unenhanced appearance of the pancreas is grossly unremarkable. The adrenal glands are normal. There is moderate nonspecific bilateral perinephric stranding, unchanged from the prior study. There is no hydronephrosis of either kidney. There is no renal, ureteral, or bladder calculus. The ovaries are within normal limits. There is a 4.0 cm cyst within the right cervix thought to represent a larg e nabothian cyst. No free fluid is identified in the abdomen or pelvis. There is no pathologic lymph adenopathy by size criteria. There is no abdominal aortic aneurysm. There is no distention of the sma ll bowel to suggest obstruction. The colonic stool burden is small to moderate. The appendix is absen t. No acute osseous abnormality is identified. IMPRESSION: Unchanged moderate nonspecific bilateral perinephric stranding. Correlate with clinical history and u rinalysis. No renal or ureteral calculus is identified. No hydronephrosis of either kidney. There is a 4 cm cyst within the cervix felt to represent a large nabothian cyst.
[2025-05-09 18:24] LABS: Alkaline Phosphatase 95 U/L (46-116)
[2025-05-09 18:25] LABS: Albumin 3.5 g/dL (3.2-4.8); Anion Gap 9 (5-15); BUN/Creatinine Ratio 12.3 (10.0-20.0); Carbon Dioxide 22 mmol/L (20-31); Chloride 103 mmol/L (98-107); Potassium 4.0 mmol/L (3.5-5.1); Total Protein 5.7 g/dL (5.7-8.2)
[2025-05-09 18:28] LABS: Alanine Aminotransferase < 9 U/L (7-40); Bilirubin, Total 0.2 mg/dL (0.2-1.0); Blood Urea Nitrogen 29 mg/dL (9-23); Calcium 8.4 mg/dL (8.7-10.4); Glucose 256 mg/dL (74-106); Sodium 134 mmol/L (136-145)
--- NOTE | 2025-05-09 20:08 | ECG ---
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
[2025-05-09 22:28] LABS: Urine Protein, UAD 3+ (Negative)
[2025-05-09] MEDS ORDERED: DEXTROSE (50%) 50ML SYRG IV PRN (22:30)
[2025-05-09] MEDS ORDERED: ONDANSETRON HCL 4 MG/2 ML VIAL IV PRN (22:30)
[2025-05-09 22:46] LABS: Cannabinoid Screen, Urine Neg (NEGATIVE); Opiate Scree,Urine Neg (NEGATIVE)
[2025-05-09 22:47] LABS: Cholesterol 147 mg/dL (< 200)
--- NOTE | 2025-05-09 22:49 | DVHHPRES ---
History of Present Illness Resident Creating Document: AYDEN LUEVANO History of Present Illness This is a 49-year-old female with past medical history of type 2 diabetes mellitus, hypertension, CHF, CKD, gastritis, dyslipidemia, peripheral neuropathy who presented to the ED with chief complaint of acute periumbilical pain radiating to the epigastric region and chest. Patient reports that the pain started today in the switcher at 2-3 a.m. patient states that she woke up with severe periumbilical pain radiating to the epigastric region and substernal chest. The patient described the pain as sharp in nature rated initially as 9/10 on the pain scale and described as heartburn and acid reflux sensation. Patient also reported that had a bowel movement at that time which was showing black stools associated with red tinged stools. The patient also reported chills and nausea but no episodes of vomiting. The patient had a previous endoscopy on 11/22/2023 that showed moderate gastroparesis and minimal gastritis but the patient reports a previous history of gastric ulcer which was not mentioned in previous EGD report. Upon admission, patient had abdominal pain rated as 6/10 on the pain scale. Initial labs showed hemoglobin of 10.3, creatinine 2.36 and BUN of 29. Rest of labs were grossly unremarkable. Rectal examination was performed, there was no evidence of external hemorrhoids or active bleeding. Stool occult sample test was sent to the lab. We will place a GI referral for possible EGD and/or colonoscopy. We will admit the patient for further assessment and management. Past medical history: type 2 diabetes mellitus, hypertension, CHF, CKD, gastritis, dyslipidemia, peripheral neuropathy. Past surgical history: Appendectomy, Cholecystectomy, Home medications: Carvedilol 6.25 b.i.d., metformin 500 mg b.i.d., glipizide 10 mg b.i.d., Lantus 24 units daily, 10 units of rapid acting insulin before meals, amlodipine 10 mg daily, atorvastatin 40 mg daily, aspirin 81 mg daily, Protonix 40 mg daily. Social history: Heavy alcohol drinker, reports cigarette smoking less than one pack a day and no drugs consumption Cardiovascular: CHF, HTN, hyperipidemia Renal/: Chronic renal failure Past Surgical History: Appendectomy, Family History: None Smoke: <1 pack per day ALCOHOL: heavy Drugs: None Lives: with Family Domestic Violence: Neg Review of Systems Constitutional: Yes: Chills, Weakness; No: Fever, Sweats, Malaise, Other Eyes: No: Pain, Vision change, Conjunctivae inflammation, Eyelid inflammation, Other, Redness ENT: No: Ear pain, Ear discharge, Nose pain, Nose discharge, Nose congestion, Mouth pain, Mouth swelling, Throat pain, Throat swelling, Other Respiratory: No: Cough, Dry, Shortness of breath, SOB with excertion, Wheezing, Hemoptysis, Pleuritic Pain, Sputum, Wheezing, Other Cardiovascular: No: Chest Pain, Palpitations, Orthopnea, Paroxysmal Noc. Dyspnea, Edema, Lt Headedness, Other Gastrointestinal: Nausea, Abdominal Pain, Melena; No: Vomiting, Diarrhea, Constipation, Hematochezia, Other Genitourinary: No Dysuria, No Frequency, No Incontinence, No Hematuria, No Retention, No Other Musculoskeletal: No: other, neck pain, shoulder pain, arm pain, back pain, hand pain, leg pain, foot pain Skin: No: Rash, Lesions, Jaundice, Bruising, Other Neurological: No: Weakness, Numbness, Incoordination, Change in speech, Confusion, Seizures, Other Allergies: Coded Allergies: Codeine (Verified Allergy, Unknown, 03/20/19) Exam Vital Signs Vital Signs Date Time Temp Pulse Resp B/P (MAP) Pulse Ox O2 Delivery O2 Flow Rate FiO2 05/09/25 22:21 97.4 73 16 153/63 (93) 99 97.4 05/09/25 17:18 Room Air General Appearance: Alert, Oriented X3, Cooperative, moderate distress HEENT: Atraumatic, PERRLA, EOMI, Mucous membr. moist/pink Respiratory: Clear to auscultation, Normal air movement Cardiovascular: Regular rate, Normal S1, Normal S2, No murmurs Abdominal: Normal bowel sounds, Soft, No masses, Other (Tenderness to palpation in the periumbilical and epigastric area) Extremities: No clubbing, No cyanosis, No edema, Normal pulses, No tenderness/swelling Skin: No rashes, No breakdown, No significant lesion Neuro: Normal gait, Normal speech, Strength at 5/5 X4 ext, Normal tone, Sensation intact, Cranial nerves 3-12 NL, Reflexes 2+ Psych/Mental Status: Mental status NL, Mood NL Labs/Xrays Labs Test 8/14/25 19:20 05/09/25 18:40 05/09/25 17:41 05/09/25 17:13 Range/Units Lactic Acid Level 0.6 0.4-2.0 mmol/L Urine Color Colorless Yellow Urine Clarity Clear Clear Urine pH 7.0 5.0-9.0 Urine Specific [place] 1.014 1.001-1.035 Urine Protein 3+ H Negative Urine Ketones Negative Negative Urine Blood Trace H Negative /uL Urine Nitrite Negative Negative Urine Bilirubin Negative Negative Urine Urobilinogen Normal Negative mg/dL Urine Leukocyte Esterase 1+ Negative /uL Urine RBC 2 0 - 4 /hpf Urine Microscopic WBC 24 H 0-5 /HPF Urine Squamous Epithelial Cells Few <5 /hpf Urine Bacteria Few H None Seen /hpf Urine Glucose 4+ H Normal mg/dL White Blood Count 9.1 4.4-10.8 10^3/uL Red Blood Count 3.45 L 4.0-5.20 10^6/uL Hemoglobin 10.3 L 12.2-16.2 g/dL Hematocrit 30.1 L 36.0-46.0 % Mean Corpuscular Volume 87.1 80.0-100.0 fL Mean Corpuscular Hemoglobin 29.7 28.0-32.0 pg Mean Corpuscular Hemoglobin Concent 34.1 32.0-36.0 g/dL Red Cell Distribution Width 14.8 H 11.8-14.3 % Platelet Count 439 140-450 10^3/uL Mean Platelet Volume 8.9 6.9-10.8 fL Neutrophils (%) (Auto) 60.8 37.0-80.0 % Lymphocytes (%) (Auto) 29.9 10.0-50.0 % Monocytes (%) (Auto) 5.9 0.0-12.0 % Eosinophils (%) (Auto) 2.9 0.0-7.0 % Basophils (%) (Auto) 0.5 0.0-2.0 % Neutrophils # (Auto) 5.6 1.6-8.6 10 ^3/uL Lymphocytes # (Auto) 2.7 0.4-5.4 10 ^3/uL Monocytes # (Auto) 0.5 0-1.3 10 ^3/uL Eosinophils # (Auto) 0.3 0-0.8 10 ^3/uL Basophils # (Auto) 0 0-0.2 10 ^3/uL Nucleated Red Blood Cells 0.0 % Sodium Level 134 L 136-145 mmol/L Potassium Level 4.0 3.5-5.1 mmol/L Chloride Level 103 98-107 mmol/L Carbon Dioxide Level 22 20-31 mmol/L Anion Gap 9 5-15 Blood Urea Nitrogen 29 H 9-23 mg/dL Creatinine 2.36 H 0.550-1.02 mg/dL Glomerular Filtration Rate Calc 25 >90 mL/min BUN/Creatinine Ratio 12.3 10.0-20.0 Serum Glucose 256 H 74-106 mg/dL Calcium Level 8.4 L 8.7-10.4 mg/dL Total Bilirubin 0.2 0.2-1.0 mg/dL Aspartate Amino Transferase (AST) 9 L 13-40 U/L Alanine Aminotransferase (ALT) < 9 7-40 U/L Alkaline Phosphatase 95 46-116 U/L B-Type Natriuretic Peptide 65.77 0-100 pg/mL Total Protein 5.7 5.7-8.2 g/dL Albumin 3.5 3.2-4.8 g/dL Lipase 62 H 12-53 U/L POC Glucose 273 H 70-106 mg/dl SEPSIS Sepsis Screen Date sepsis recognized/suspect: May 09, 2025 Time Sepsis recognized/suspect: 1645 Recent Procedure: No On Antibiotic Therapy: No Respiratory Rate >20: No Heart Rate >90: No Temp<36 C (96.8 F) or >38.3 C: No SBP <90 or MAP <65 mmHG: No New Acute Mental Status Change: No Is the patient on CPAP, BIPAP,: No Physician Orders Ct Ab Pel Wo Con-No Oral Or Iv (05/09/25 16:59) Saline Lock (05/09/25 17:09) Blood Culture (05/09/25 18:39) Stool Occult Blood (05/09/25 18:40) Admit (05/09/25 22:20) Code Status (05/09/25 22:20) Vital Signs .PER UNIT PROTOCOL (05/09/25 22:20) Review Orders With Adm. (05/09/25 22:20) Encourage Activity As Tolerate (05/09/25 22:20) Npo (Nothing By Mouth) Diet (05/10/25 Breakfast) Acetaminophen Tablet (Tylenol Tablet) (05/09/25 22:30) Notify Md Of Changes From Base (05/09/25 22:20) Advance Directive (05/09/25 22:20) Basic Metabolic Panel (05/10/25 04:00) Urinalysis (05/09/25 22:20) Complete Blood Count (05/10/25 04:00) Lipid Panel (05/09/25 22:20) Patient Condition (05/09/25 22:20) Allergies (05/09/25 22:20) Ondansetron Hcl (Zofran) (05/09/25 22:30) Drug Screen (05/09/25 22:20) Pantoprazole (Protonix) (05/09/25 22:30) Sodium Chloride 0.9% (05/09/25 22:30) Sucralfate Susp (Carafate Susp) (05/09/25 22:30) Morphine Sulfate Injection (05/09/25 22:30) Carvedilol Tablet (Coreg Tablet) (05/10/25 10:00) Amlodipine Tablet (Norvasc Tablet) (05/09/25 23:30) Atorvastatin (Lipitor) (05/10/25 22:00) Insulin Lantus (Glargine) (Lantus) (05/10/25 07:00) Glucose Blood (Accu-Chek Comfort Curve T (05/10/25 07:00) Insulin R (Human) (Insulin R) (05/10/25 07:00) Dextrose 50% Syringe (05/09/25 22:30) Vital Signs Date Time Temp Pulse Resp B/P (MAP) Pulse Ox O2 Delivery O2 Flow Rate FiO2 05/09/25 22:21 97.4 73 16 153/63 (93) 99 97.4 05/09/25 20:01 97.8 69 16 131/74 (93) 96 97.8 05/09/25 17:51 69 16 131/74 05/09/25 17:21 80 17 147/81 05/09/25 17:18 80 17 98 Room Air 05/09/25 17:18 98.1 80 17 147/81 (103) 98 98.1 05/09/25 16:48 75 05/09/25 16:41 98.0 80 18 137/77 100 98.0 Laboratory Tests Test 05/09/25 17:41 05/09/25 19:20 White Blood Count 9.1 10^3/uL (4.4-10.8) Lactic Acid Level 0.6 mmol/L (0.4-2.0) Medications Medications Dose Ordered Sig/Mariel Route Start Time Stop Time Status Last Admin Dose Admin Morphine Sulfate 2 mg ONCE ONCE IV 05/09/25 17:00 05/09/25 17:04 DC 05/09/25 17:21 2 MG Pantoprazole Sodium 40 mg ONCE ONCE IV 05/09/25 17:00 05/09/25 17:04 DC 05/09/25 17:21 40 MG Sodium Chloride 500 ml @ 500 mls/hr Q1H ONCE IV 05/09/25 17:00 05/09/25 17:59 DC 05/09/25 17:22 500 MLS/HR Assessment/Plan Assessment/Plan Assessment/plan Acute abdominal pain likely due to peptic ulcer disease associated with possible upper/lower GI bleed Possible upper/lower GI bleed ERIK on 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 Stool occult test was sent to lab -start pantoprazole 40 mg IV b.i.d. -start sucralfate suspension t.i.d. -placed patient NPO -start Lantus 20 units daily with mild sliding scale insulin. Monitor blood glucose closely -start amlodipine 10 mg daily, carvedilol 6.25 mg b.i.d. monitor blood pressure closely -hold aspirin or NSAIDs at this time -morphine 1 mg q.6 p.r.n. for pain -IV fluids 0.9% at 75 cc/hour Goals of care discussed with the patient at bedside, FULL CODE Plan discussed with Dr. Haynes Plan discussed with: Patient My Orders Orders - AYDEN LUEVANO Procedure Category Date Status Time Admit ADMIT 05/09/25 Transmitted 22:20 Code Status CODE 05/09/25 Transmitted 22:20 Vital Signs VELMA 05/09/25 In Process 22:20 Review Orders With VELMA 05/09/25 In Process Adm. 22:20 Encourage Activity As VELMA 05/09/25 In Process Tolerate 22:20 Npo (Nothing By DIET 05/10/25 Transmitted Mouth) Diet Breakfast Acetaminophen Tablet PHA 05/09/25 In Process (Tylenol Tablet) 22:30 Notify Of Changes VELMA 05/09/25 In Process From Base 22:20 Advance Directive VELMA 05/09/25 In Process 22:20 Basic Metabolic Panel LAB 05/10/25 Verified 04:00 Urinalysis LAB 05/09/25 Logged 22:20 Complete Blood Count LAB 05/10/25 Verified 04:00 Lipid Panel LAB 05/09/25 In Process 22:20 Patient Condition ORDERS 05/09/25 Transmitted 22:20 Allergies VELMA 05/09/25 In Process 22:20 Ondansetron Hcl PHA 05/09/25 In Process (Zofran) 22:30 Drug Screen LAB 05/09/25 In Process 22:20 Pantoprazole PHA 05/09/25 In Process (Protonix) 22:30 Sodium Chloride 0.9% PHA 05/09/25 In Process 22:30 Sucralfate Susp PHA 05/09/25 In Process (Carafate Susp) 22:30 Morphine Sulfate PHA 05/09/25 In Process Injection 22:30 Carvedilol Tablet PHA 05/10/25 Logged (Coreg Tablet) 10:00 Amlodipine Tablet PHA 05/09/25 Logged (Norvasc Tablet) 23:30 Atorvastatin (Lipitor) PHA 05/10/25 Logged 22:00 Insulin Lantus PHA 05/10/25 Logged (Glargine) (Lantus) 07:00 Glucose Blood PHA 05/10/25 Logged (Accu-Chek Comfort 07:00 Insulin R (Human) PHA 05/10/25 Logged (Insulin R) 07:00 Dextrose 50% Syringe PHA 05/09/25 Logged 22:30 Date of Service: May 09, 2025 Billing Provider: MYRNA HAYNES MD Common Visit Codes: 17150-[id number] INP/OBS CARE (HIGH) Secondary Visit Codes: 78392-[id number] CARE PLAN 30 MINUTES AYDEN LUEVANO RESIDENT May 09, 2025 22:49
[2025-05-09 23:15] LABS: HDL Cholesterol 38 mg/dL (40-59); Triglycerides 309 mg/dL (< 150)
[2025-05-09 23:15] LABS: Amphetamine Screen, Urine Pos (NEGATIVE); Barbiturate Scree,Urine Neg (NEGATIVE); Benzodiazephine Screen, Urine Neg (NEGATIVE); Cocaine Screen, Urine Neg (NEGATIVE); Phencyclidine Screen, Urine Neg (NEGATIVE)
[2025-05-10] VITALS (9 sets, daily range): BP systolic 128–170; BP diastolic 66–85; PULSE 68–84; RESP 14–21; TEMP 97.5–98.5; O2SAT 95–99
[2025-05-10] MEDS: SUCRALFATE 1 GM/10 ML ORAL SUSP PO SCH (01:08)
[2025-05-10] MEDS: PANTOPRAZOLE 40 MG/10 ML VIAL INJ IV SCH (01:08)
[2025-05-10] MEDS: SODIUM CHLORIDE 0.9% 1,000 ML IV ONE (02:05)
[2025-05-10] MEDS: MORPHINE SULFATE INJ 2 MG/ml SYRG IV PRN (02:05)
[2025-05-10 05:52] LABS: Hematocrit 29.7 % (36.0-46.0); Hemoglobin 10.0 g/dL (12.2-16.2); Mean Corpuscular Hemoglobin 29.3 pg (28.0-32.0); Mean Corpuscular Volume 87.2 fL (80.0-100.0); Nucleated Red Blood Cells % 0.1 %
[2025-05-10 05:56] LABS: Anion Gap 7 (5-15); Carbon Dioxide 23 mmol/L (20-31); Chloride 106 mmol/L (98-107); Potassium 3.9 mmol/L (3.5-5.1); Sodium 136 mmol/L (136-145)
[2025-05-10 06:02] LABS: BUN/Creatinine Ratio 11.7 (10.0-20.0)
[2025-05-10 06:06] LABS: Blood Urea Nitrogen 26 mg/dL (9-23); Calcium 8.1 mg/dL (8.7-10.4); Glucose 225 mg/dL (74-106)
[2025-05-10] MEDS: INSULIN LANTUS (GLARGINE) 1 /0.01ml (100units/ml) SC SCH (06:25)
[2025-05-10] MEDS: ACCU-CHEK COMFORT CURVE STRIP VI SCH (06:25)
[2025-05-10] MEDS: InsuLIN REG 1unit/0.01ml Soln (100units/ml) SC SCH (06:26)
[2025-05-10] MEDS: CARVEDILOL 3.125 MG TAB PO SCH (09:37)
[2025-05-10] MEDS ORDERED: MIDAZOLAM HCL 2MG/2ML 2ml VIAL (1mg/ml) ONE (14:38)
[2025-05-10] MEDS ORDERED: fentaNYL CITRATE 100 MCG/2 ML VL ONE (14:38)
--- NOTE | 2025-05-10 14:50 | DVHOP2 ---
Operative Report DATE OF OPERATION: 05/10/25 PROCEDURE: Upper Endoscopy with biopsy. PREOPERATIVE INDICATION: The patient is a 49 -year-old female undergoing endoscopy for epigastric pain and questionable history of melena POSTOPERATIVE DIAGNOSES: 1. 0.5 cm sliding-type hiatal hernia with slightly irregular squamocolumnar junction no significant erosive esophagitis 2. Mild gastritis otherwise normal examination up to the 2nd and 3rd part of the duodenum PROCEDURE PERFORMED BY: Jazz Hauser GI NURSE: Blank SCOPE: Olympus videoendoscope. ASA CLASS: 3 PREOPERATIVE MEDICATIONS: Mac sedation, [place] PROCEDURE IN DETAIL: After obtaining an informed consent, the patient was placed on left lateral decubitus position. The patient was then sedated with the above medications. A bite block was placed between her teeth. The endoscope was then passed through the oropharynx, into the esophagus, and through the stomach and pylorus up to the second and third part of the duodenum. The endoscope was then withdrawn. The 2nd and 3rd part of the duodenal and the duodenal bulb were normal. Duodenal biopsies were obtained The pre-pyloric area antrum and body showed mild gastritis. Gastric biopsies were obtained. On retroflexion the fundus cardia and angularis were normal. The endoscope was then withdrawn into distal esophagus Patient had a 5 mm extension of columnar epithelium into the distal esophagus with no significant erosive esophagitis The remaining distal and proximal esophagus and oropharynx were unremarkable The patient tolerated the procedure well without difficulty. COMPLICATIONS : None SPECIMENS: Duodenal biopsies Gastric biopsies DISPOSITION: Transfer back to the floor Stable PLAN: 1. Await for biopsy result 2. Will place pt on Protonix 40 mg p.o. daily 3. Resume GI soft diet advance as tolerated 4. Outpatient follow up with me to discuss above results and schedule elective s creening colonoscopy JAZZ HAUSER MD May 10, 2025 14:50
[2025-05-10] MEDS ORDERED: PROPOFOL 10 MG/ML 20 ML IV ONE (14:57)
--- NOTE | 2025-05-10 17:54 | DVHPNRES ---
Progress Note Date Seen: May 10, 2025 Resident Creating Document: GARY MOROCHO RESIDENT Medical Necessity Reason Pt with a Central, PICC or Fol: No Subjective Review of Systems The patient is a 49-year-old female with prior medical history of type 2 diabetes mellitus, hypertension, CHF, CKD, gastritis, dyslipidemia, and peripheral neuropathy, who presented to the ED with chief complaint of abdominal pain. She refers 2 days ago she onset of epigastric abdominal pain, described as burning and achy, intensity 10/10, nonradiating, associated with nausea, chills, and reflux. She states that the night before presenting to the ED, she had two bright red bloody bowel movements. Upon persistence of symptoms, patient sought medical attention. She denied vomiting, fever, shortness of breath, chest pain, and palpitations. On evaluation in the ED, she was in mild distress and hypertensive. Initial labs are significant for Hb 10.3, HCT 30.1, sodium 134, creatinine 2.36, BUN 29, and glucose 273. UDS is positive for amphetamines. UA significant for possible UTI. Abdominal/pelvis CT unchanged moderate nonspecific bilateral perinephric stranding, and a 4 cm cyst within the cervix felt to represent a large Nabothian cyst. Patient was admitted for further work up and monitoring. Past medical history: type 2 diabetes mellitus, hypertension, CHF, CKD, gastritis, dyslipidemia, and peripheral neuropathy Allergies: Codeine (Patient states that she was given codeine 30+ y Past Surgical History: Appendectomy, Cholecystectomy, Social History: Patient denies drug use (UDS + amphetamines), refers she smokes 1 cigarette a day down from 1 pack a day, refers she trying approximately 1 bottle of vodka or Tequila a day. States she lives with her and daughter and feels safe. Patient seen at bedside. Patient is AOx4, she continues to refer epigastric abdominal pain intensity 7/10 and some lower back pain, currently denies vomiting, further episodes of bloody stools, diarrhea, fever, chest pain, and palpitations. The patient has been intermittently hypertensive, other vitals have been within normal range. Follow up labs show Hb 10.0, creatinine 2.22, BUN 26, and glucose 225. The patient was placed on NPO, and the patient was taken EGD today. EGD shows 2.5 cm sliding type hiatal hernia with slightly irregular squamocolumnar junction no significant erosive esophagitis, mild gastritis otherwise normal examination up to the 2nd and 3rd part of the duodenum. We will continue to monitor. Review of Systems: Constitutional: Denies weight loss, fever and chills. HEENT: Denies changes in vision and hearing. Respiratory: Denies shortness of breath and cough Cardiovascular: Denies chest discomfort or palpitations GI: burning epigastric pain, Denies abdominal distention, diarrhea : Denies dysuria and urinary frequency. Musculoskeletal: refers lower back pain Skin: Denies rash and pruritus. Neurological: denies dizziness headache vision or hearing problems Objective vital signs Vital Sign Date Time Temp Pulse Resp B/P (MAP) Pulse Ox O2 Delivery O2 Flow Rate FiO2 05/10/25 16:52 97.5 75 16 156/77 (103) 96 97.5 05/10/25 14:50 Room Air 0 95 medications Current Medications Medications Dose Ordered Sig/Mariel Route Start Time Stop Time Status Last Admin Dose Admin Acetaminophen 650 mg Q6HP PRN PO 05/09/25 22:30 Ondansetron HCl 4 mg Q4HP PRN IV 05/09/25 22:30 Pantoprazole Sodium 40 mg BID IV 05/09/25 22:30 05/10/25 10:13 40 MG Sucralfate 1 gm TID PO 05/09/25 22:30 05/10/25 06:24 1 GM Morphine Sulfate 1 mg Q6HP PRN IV 05/09/25 22:30 05/10/25 02:05 1 MG Carvedilol 6.25 mg BID PO 05/10/25 10:00 05/10/25 09:37 6.25 MG Amlodipine Besylate 10 mg DAILY PO 05/09/25 23:30 05/10/25 09:36 10 MG Atorvastatin Calcium 40 mg HS PO 05/10/25 22:00 Insulin Glargine 20 units QAM SC 05/10/25 07:00 Diagnostic Test (Pha) 1 strip ACHS 05/10/25 07:00 05/10/25 16:24 1 STRIP Insulin Human Regular ACHS SC 05/10/25 07:00 05/10/25 16:24 6 UNITS Dextrose 50 ml UD PRN IV 05/09/25 22:30 Examination General: Patient seems uncomfortable, alert and oriented in person place and time. Patient following commands. HEENT: Normocephalic, atraumatic, normal reactive pupils, EOM intact, pink conjunctiva, pink moist mucous membrane Respiratory/pulmonary: Bilateral chest expansion, clear lungs bilaterally, vesicular murmurs present in almost all lung beckham, no associated crackles or wheezes. Cardiovascular: normal RRR, normal S1 and S2 Abdomen: Obese, presence of flat and hypochromic scar on right upper quadrant due to cholecystectomy, presence of flat hypochromic scar in right lower quadrant due to appendectomy, abdomen nondistended, normal bowel sounds, soft, pain to palpation of epigastric region and periumbilical region, no palpable masses. CASH: normal external appearance, normal tone, no evidence of external hemorrhoids, no bright red blood on glove Extremities: no deformities, there is no peripheral edema present at the lower extremities, pulses are palpable Skin: No rashes or pruritus, there is no sacral edema present at this time. Neurological: Intact cranial nerves with no focal neurologic deficits, decreased sensation in all toes laboratory and microbiology Laboratory Tests 05/10/25 05:02 Test 05/10/25 05:02 Range/Units Serum Glucose 225 H 74-106 mg/dL Labs and/or images reviewed: Labs reviewed by me, Image(s) reviewed by me Problem List/Assessment/Plan Problem List/Assessment/Plan Assessment and Plan: Acute abdominal pain likely due gastritis - NPO - Protonix 40 mg IV b.i.d. - Sucralfate 1 g t.i.d. p.o. - NS IV once - Morphine 1 g IV q6H PRN - Acetaminophen 650 mg PO q6hr PRN PUD ruled out Possible Upper GI bleed -EGD 05/10/2025: 2.5 cm sliding type hiatal hernia with slightly irregular squamocolumnar junction no significant erosive esophagitis. Mild gastritis otherwise normal examination up to the 2nd and 3rd part of the duodenum. -Stool occult blood pending Possible acute complicated UTI -Ceftriaxone 1g IV daily ERIK on CKD 4, likely due to VMN Normocytic anemia, likely due to chronic disease secondary to above -Monitor H&H Hypertension -Carvedilol 6.25 mg PO BID -Amlodipine 10 mg PO daily Type 2 Diabetes Mellitus with hyperglycemia, HbA1c: 12.9 (04/17/2025) - Lantus 20 units SC q.a.m. - Moderate sliding scale - Accu-Cheks Chronic diastolic heart failure, not exacerbated -Echo 04/07/2024: with concentric left ventricular hypertrophy, normal left ventricular size and dimension, normal left ventricular systolic function estimated ejection fraction 60%. There is grade 1 diastolic dysfunction. Hyperlipidemia - Atorvastatin 40 mg PO HS Obesity, BMI 33.0 kg/m2 Nabothian Cyst -Abdominal/pelvic CT: 4 cm cyst within the cervix felt to represent a large Nabothian cyst Polysubstance use disorder including alcohol/meth/tobacco Counseled the patient for 22 minutes on alcohol/meth/tobacco use cessation including 14 minutes exclusively for tobacco use cessation NPO DVT prophylaxis: SCDs due to suspicion of GI bleed GI prophylaxis: Protonix 40 mg IV BID Goals of care discussed with the patient for 20 minutes. FULL CODE. Case discussed with Dr. Jaimes Plan discussed with: Patient, Other (RN) My Orders My Orders Orders - GARY MOROCHO RESIDENT Procedure Category Date Status Time Urine Bacterial CHIRAG 05/10/25 Logged Culture 17:08 Ceftriaxone Ivpb PHA 05/10/25 Transmitted Rocephin 18:00 ADDENDUM ADDENDUM ADDENDUM I was physically present for the petit portions of the service provided to patient by THE RESIDENT. I have reviewed the documentation, discussed the case with resident and agree with the resident's documentation except as noted. Also the patient's clinical case was discussed with the patient's nurse. This medical document was created using an electronic medical record system with computerized dictation system. Although this document has been carefully reviewed, there might still be some phonetic and typographical errors. These areas are purely typographical due to imperfections of the software programs, and do not reflect any compromise in the patient's medical care. Late signature. Date of Service: May 10, 2025 Billing Provider: LIBRADO JAIMES MD Common Visit Codes: 42927-[id number] INP/OBS CARE(HIGH) Secondary Visit Codes: 13798-[id number] CHNG SMOKING >10MIN (22 minutes on alcohol/meth/tobacco use cessation including 14 minutes exclusively for tobacco use cessation), [id number] CARE PLAN 30 MINUTES (20 minutes) GARY MOROCHO RESIDENT May 10, 2025 17:54 LIBRADO JAIMES MD May 13, 2025 06:02
[2025-05-10] MEDS: cefTRIAXone 1GM/50ML D5W 50 ML IV SCH (18:36)
--- NOTE | 2025-05-10 20:23 | DVHINCON2 ---
Date of service: May 09, 2025 (Late entry) Referring Physician Dr Thaddeus Zavaleta Reason for Consultation Epigastric pain History of Present Illness The patient is a 49-year-old female with prior medical history of type 2 diabetes mellitus, hypertension, CHF, CKD, gastritis, dyslipidemia, and peripher al neuropathy, who presented to the ED with chief complaint of 2 days of epigastric abdominal pain, described as burning and achy, intensity 10/10, nonradiating, associated with nausea, chills, and reflux. She states that the night before presenting to the ED, she had two bright red bloody bowel movements. Upon persistence of symptoms, patient sought medical attention. She denied vomiting, fever, shortness of breath, chest pain, and palpitations. On evaluation in the ED, she was in mild distress and hypertensive. Initial labs are significant for Hb 10.3, HCT 30.1, sodium 134, creatinine 2.36, BUN 29, and glucose 273. UDS is positive for amphetamines. UA significant for possible UTI. Abdominal/pelvis CT unchanged moderate nonspecific bilateral perinephric stranding, and a 4 cm cyst within the cervix felt to represent a large Nabothian cyst. Patient was admitted for further work up and monitoring. Last EGD done by me in 05/19 Operative Report DATE OF OPERATION: 11/22/23 PROCEDURE: Upper Endoscopy with biopsy. PREOPERATIVE INDICATION: The patient is a 47 -year-old female undergoing endoscopy for epigastric pain POSTOPERATIVE DIAGNOSES: 1. Moderate gastroparesis with retained gastric food contents 2. Minimal gastritis PROCEDURE PERFORMED BY: Eleuterio Juarez Past Medical History Past medical history: type 2 diabetes mellitus, hypertension, CHF, CKD, gastritis, dyslipidemia, and peripheral neuropathy Past Surgical History Past Surgical History: Appendectomy, Cholecystectomy, Family History: Alcoholism FHx: prostate cancer G8 FATHER Family history: Cardiovascular disease G8 MOTHER Family history: Diabetes mellitus G8 MOTHER Family history: Hypertension G8 MOTHER Gout G8 FATHER Heart attack G8 MOTHER Stroke G8 MOTHER Tuberculosis G8 FATHER Social History Social History: Patient denies drug use (UDS + amphetamines), refers she smokes 1 cigarette a day down from 1 pack a day, refers she trying approximately 1 bottle of vodka or Tequila a day for 4 years but quit 3 months ago. States she lives with her and daughter and feels safe. Allergies: Coded Allergies: Codeine (Verified Allergy, Unknown, 03/20/19) Allergies Allergies: Codeine (Patient states that she was given codeine 30+ y Home Meds Active Scripts Insulin Lispro (Humalog Kwikpen) 100 Unit/Ml Inj, 10 UNIT SC TID for 30 Days, #9 INJ Please take 8 units before each meal 3 times aday. Prov:TOMANAIS AMOSRA RESIDENT 04/19/25 Carvedilol (Carvedilol) 6.25 Mg Tab, 1 TAB PO BID for 30 Days, #60 TAB 1 Refill Prov:TOMDERIK RESIDENT 04/19/25 Insulin Glargine (Lantus Solostar) 100 Unit/Ml Inj, 24 UNIT SC QAM for 30 Days, #9 INJ Please take 24 unit Lantus at QAM daily. Prov:TOMCAMMIE AMOSDERIK RESIDENT 04/19/25 Amoxicillin & Pot Clavulanate (AUGMENTIN TABLET) 875 Mg Tb, 875 MG PO BID for 7 Days, #14 TAB Prov:CAMMIE AVINAHIRA RESIDENT 04/19/25 Albuterol Sulfate (VENTOLIN MDI) 90 Mcg Ih, 90 MCG IN TID for 5 Days, #1 INH Prov:PARISH JENSEN RESIDENT 10/26/24 Ferrous Sulfate (Ferrous Sulfate) 325 Mg Tab, 325 MG PO DAILY for 30 Days, #30 TAB 2 Refills Prov:ANDREA JOSHUA RESIDENT 04/07/24 Reported Medications Glipizide (Glipizide) 10 Mg Tab, 10 MG PO BID for 30 Days, MG 02/05/25 Metformin Hydrochloride (Metformin Hcl) 500 Mg Tab, 500 MG PO IBID for 30 Days, MG 02/05/25 Spironolactone (Spironolactone) 25 Mg Tab, 1 TAB PO DAILY for 30 Days, #30 09/04/24 Amlodipine Besylate (Amlodipine Besylate) 10 Mg Tab, 1 TAB PO DAILY for 90 Days, #90 09/04/24 Pantoprazole Sodium Sesquihydr (Protonix) 40 Mg Tab, 1 TAB PO DAILY for 90 Days, #90 09/04/24 Metoclopramide Hcl (Metoclopramide Hcl) 5 Mg Tab, 1 TAB PO TID for 90 Days, #270 09/04/24 Gabapentin (Gabapentin) 100 Mg Cap, 400 MG PO BID for 90 Days, #180 09/04/24 Furosemide (Furosemide) 40 Mg Tab, 1 TAB PO DAILY for 90 Days, #90 09/04/24 Empagliflozin (Jardiance) 10 Mg Tab, 1 TAB PO DAILY for 90 Days, #90 09/04/24 Atorvastatin Calcium (Lipitor) 40 Mg Tab, 1 TAB PO DAILY for 90 Days, #90 09/04/24 Aspirin (Aspirin Low Dose) 81 Mg Chw, 1 TAB PO DAILY for 90 Days, #90 09/04/24 Current Medications Current Medications Medications (Trade) Dose Ordered Sig/Mariel Route PRN Reason Start Time Stop Time Status Last Admin Acetaminophen (Tylenol Tablet) 650 mg Q6HP PRN PO PAIN SCALE 1-3 OR TEMP>100.4 05/09/25 22:30 Ondansetron HCl (Zofran) 4 mg Q4HP PRN IV NAUSEA / VOMITING 05/09/25 22:30 Pantoprazole Sodium (Protonix) 40 mg BID IV 05/09/25 22:30 05/10/25 10:13 Sucralfate (Carafate Susp) 1 gm TID PO 05/09/25 22:30 05/10/25 06:24 Morphine Sulfate 1 mg Q6HP PRN IV MOD/SEVERE PAIN 05/09/25 22:30 05/10/25 02:05 Carvedilol (Coreg Tablet) 6.25 mg BID PO 05/10/25 10:00 05/10/25 09:37 Amlodipine Besylate (Norvasc Tablet) 10 mg DAILY PO 05/09/25 23:30 05/10/25 09:36 Atorvastatin Calcium (Lipitor) 40 mg HS PO 05/10/25 22:00 Insulin Glargine (Lantus) 20 units QAM SC 05/10/25 07:00 Diagnostic Test (Pha) (Accu-Chek Comfort Curve T) 1 strip ACHS 05/10/25 07:00 05/10/25 16:24 Insulin Human Regular (InsuLIN R) ACHS SC 05/10/25 07:00 05/10/25 16:24 Dextrose 50 ml UD PRN IV Blood Sugar LESS THAN 60 05/09/25 22:30 Ceftriaxone Sodium 50 ml @ 100 mls/hr DAILY@09 IV 05/10/25 18:00 05/10/25 18:36 Vital Signs Vital Signs Date Time Temp Pulse Resp B/P (MAP) Pulse Ox O2 Delivery O2 Flow Rate FiO2 05/10/25 16:52 97.5 75 16 156/77 (103) 96 97.5 05/10/25 14:50 Room Air 0 95 Physical Exam General Appearance: Alert, Oriented X3, Cooperative, minimal distress HEENT: Atraumatic, PERRLA, EOMI, Mucous membr. moist/pink Respiratory: Clear to auscultation, Normal air movement Cardiovascular: Regular rate, Normal S1, Normal S2, No murmurs Abdominal: Normal bowel sounds, Soft, No masses, Other (Tenderness to palpation in the periumbilical and epigastric area) Extremities: No clubbing, No cyanosis, No edema, Normal pulses, No tenderness/swelling Skin: No rashes, No breakdown, No significant lesion Neuro: Normal gait, Normal speech, Strength at 5/5 X4 ext, Normal tone, Sensation intact, Cranial nerves 3-12 NL, Reflexes 2+ Psych/Mental Status: Mental status NL, Mood NL Davdi March Labs/Diagnostic Data Lotrisone of the time was then that could diarrhea with PA but yes Phillips I do not want chair Labs Test 05/10/25 16:24 05/10/25 05:02 05/09/25 22:30 05/09/25 19:20 Range/Units POC Glucose 271 H 70-106 mg/dl White Blood Count 9.4 4.4-10.8 10^3/uL Red Blood Count 3.40 L 4.0-5.20 10^6/uL Hemoglobin 10.0 L 12.2-16.2 g/dL Hematocrit 29.7 L 36.0-46.0 % Mean Corpuscular Volume 87.2 80.0-100.0 fL Mean Corpuscular Hemoglobin 29.3 28.0-32.0 pg Mean Corpuscular Hemoglobin Concent 33.6 32.0-36.0 g/dL Red Cell Distribution Width 14.8 H 11.8-14.3 % Platelet Count 413 140-450 10^3/uL Mean Platelet Volume 9.0 6.9-10.8 fL Neutrophils (%) (Auto) 62.8 37.0-80.0 % Lymphocytes (%) (Auto) 27.9 10.0-50.0 % Monocytes (%) (Auto) 5.7 0.0-12.0 % Eosinophils (%) (Auto) 3.2 0.0-7.0 % Basophils (%) (Auto) 0.4 0.0-2.0 % Neutrophils # (Auto) 5.9 1.6-8.6 10 ^3/uL Lymphocytes # (Auto) 2.6 0.4-5.4 10 ^3/uL Monocytes # (Auto) 0.5 0-1.3 10 ^3/uL Eosinophils # (Auto) 0.3 0-0.8 10 ^3/uL Basophils # (Auto) 0 0-0.2 10 ^3/uL Nucleated Red Blood Cells 0.1 % Sodium Level 136 136-145 mmol/L Potassium Level 3.9 3.5-5.1 mmol/L Chloride Level 106 98-107 mmol/L Carbon Dioxide Level 23 20-31 mmol/L Anion Gap 7 5-15 Blood Urea Nitrogen 26 H 9-23 mg/dL Creatinine 2.22 H 0.550-1.02 mg/dL Glomerular Filtration Rate Calc 27 >90 mL/min BUN/Creatinine Ratio 11.7 10.0-20.0 Serum Glucose 225 H 74-106 mg/dL Calcium Level 8.1 L 8.7-10.4 mg/dL Beta HCG, Quantitative 1.1 L 1.5-4.2 mIU/mL Lactic Acid Level 0.6 0.4-2.0 mmol/L Test 05/09/25 18:40 05/09/25 17:41 Range/Units Urine Color Colorless Yellow Urine Clarity Clear Clear Urine pH 7.0 5.0-9.0 Urine Specific [place] 1.014 1.001-1.035 Urine Protein 3+ H Negative Urine Ketones Negative Negative Urine Blood Trace H Negative /uL Urine Nitrite Negative Negative Urine Bilirubin Negative Negative Urine Urobilinogen Normal Negative mg/dL Urine Leukocyte Esterase 1+ Negative /uL Urine RBC 2 0 - 4 /hpf Urine Microscopic WBC 24 H 0-5 /HPF Urine Squamous Epithelial Cells Few <5 /hpf Urine Bacteria Few H None Seen /hpf Urine Glucose 4+ H Normal mg/dL Urine Opiates Screen Neg NEGATIVE Urine Fentanyl Screen Neg NEGATIVE Urine Barbiturates Screen Neg NEGATIVE Urine Phencyclidine Screen Neg NEGATIVE Urine Amphetamines Screen Pos NEGATIVE Urine Benzodiazepines Screen Neg NEGATIVE Urine Cocaine Screen Neg NEGATIVE Urine Cannabinoids Screen Neg NEGATIVE Total Bilirubin 0.2 0.2-1.0 mg/dL Aspartate Amino Transferase (AST) 9 L 13-40 U/L Alanine Aminotransferase (ALT) < 9 7-40 U/L Alkaline Phosphatase 95 46-116 U/L B-Type Natriuretic Peptide 65.77 0-100 pg/mL Total Protein 5.7 5.7-8.2 g/dL Albumin 3.5 3.2-4.8 g/dL Triglycerides Level 309 H < 150 mg/dL Cholesterol Level 147 < 200 mg/dL LDL Cholesterol 75 < 100 mg/dL HDL Cholesterol 38 L 40-59 mg/dL Lipase 62 H 12-53 U/L Microbiology Date/Time Source Procedure Growth Status 05/09/25 19:20 Blood Blood Culture - Preliminary NO GROWTH AFTER 24 HOURS OF INCU[address]ATION. Resulted CT SCAN ABD PELVIS IMPRESSION: Unchanged moderate nonspecific bilateral perinephric stranding. Correlate with clinical history and urinalysis. No renal or ureteral calculus is identified. No hydronephrosis of either kidney. There is a 4 cm cyst within the cervix felt to represent a large nabothian cyst. Problems(with codes): (1) Pyelonephritis (2) GI bleeding (3) Diabetes mellitus with hyperglycemia (4) Urinary tract infection (5) Upper GI bleed (6) Abdominal pain, acute, epigastric Plan/Recommendation Plan Check urine culture IV fluid hydration IV antibiotics IV PPI Patient will tentatively be scheduled for an endoscopy on 05/10/2025 Further recommendations after the above Patient has been advised an outpatient elective screening colonoscopy upon discharge Patient is agreeable with this course of action Plan discussed with: Patient ELEUTERIO JUAREZ MD May 10, 2025 20:23
[2025-05-10] MEDS: ATORVASTATIN 20 MG TAB PO SCH (21:29)
[2025-05-10] MEDS: INSULIN LANTUS (GLARGINE) 1 /0.01ml (100units/ml) SC ONE (23:30)
[2025-05-11] VITALS (8 sets, daily range): BP systolic 113–158; BP diastolic 61–77; PULSE 68–83; RESP 16–20; TEMP 97.6–98.4; O2SAT 96–100
[2025-05-11 06:17] LABS: Hemoglobin 10.6 g/dL (12.2-16.2); Nucleated Red Blood Cells % 0.0 %
[2025-05-11 06:19] LABS: Hematocrit 32.5 % (36.0-46.0); Mean Corpuscular Hemoglobin 29.1 pg (28.0-32.0); Mean Corpuscular Volume 89.1 fL (80.0-100.0)
[2025-05-11 06:22] LABS: Chloride 101 mmol/L (98-107)
[2025-05-11 06:23] LABS: Anion Gap 8 (5-15)
[2025-05-11 06:24] LABS: Potassium 5.1 mmol/L (3.5-5.1); Sodium 126 mmol/L (136-145)
[2025-05-11 06:25] LABS: Calcium 8.0 mg/dL (8.7-10.4); Carbon Dioxide 17 mmol/L (20-31)
[2025-05-11 06:29] LABS: BUN/Creatinine Ratio 10.7 (10.0-20.0)
[2025-05-11 06:30] LABS: Blood Urea Nitrogen 27 mg/dL (9-23)
[2025-05-11 06:32] LABS: Glucose 604 mg/dL (74-106)
[2025-05-11] MEDS: INSULIN LANTUS (GLARGINE) 1 /0.01ml (100units/ml) SC SCH ×2 (07:47→22:22)
[2025-05-11] MEDS ORDERED: INSULIN LANTUS (GLARGINE) 1 /0.01ml (100units/ml) SC SCH (10:00)
[2025-05-11] MEDS ORDERED: DEXTROSE (50%) 50ML SYRG IV PRN ×2 (11:00→23:45)
--- NOTE | 2025-05-11 11:30 | DVH ---
CLINICAL HISTORY: R/o DVT TECHNIQUE: Color and duplex doppler imagine of the right lower extremity veins was performed. Vessel compression if possible was also performed. COMPARISON: US BILAT LOWER DVT on DOS: 07/19/24, US BILAT LOWER DVT on DOS: 04/04/24, US BILAT LOWER D VT on DOS: 08/01/23 FINDINGS: Right common femoral vein: Normal compressibility and flow. Right superficial femoral vein: Normal compressibility and flow. Right popliteal vein: Normal compressibility and flow. Proximal calf veins are normally compressible. IMPRESSION: NO SONOGRAPHIC EVIDENCE FOR DEEP VENOUS THROMBOSIS IN THE RIGHT LOWER EXTREMITY VEINS.
[2025-05-11] MEDS: InsuLIN REG 1unit/0.01ml Soln (100units/ml) SC SCH ×3 (11:35→23:52)
[2025-05-11] MEDS: ACCU-CHEK COMFORT CURVE STRIP VI SCH ×2 (11:38→23:53)
--- NOTE | 2025-05-11 14:15 | DVH ---
CHEST RADIOGRAPH Indication: r/o fluid overload Technique: Single frontal view of the chest was obtained COMPARISON: XY CHEST PORTABLE on DOS: 12/14/24, XY CHEST PORTABLE on DOS: 12/11/24, XY CHEST XRAY 1 VIE W on DOS: 10/23/24, XY CHEST XRAY 1 VIEW on DOS: 09/06/24, XY CHEST PORTABLE on DOS: 09/03/24 FINDINGS: Lines and Tubes: None Lungs: Clear Pleura: No effusion. No pneumothorax. Cardiomediastinal contours: Unremarkable Bones: Unremarkable IMPRESSION: No acute disease.
--- NOTE | 2025-05-11 15:29 | DVHPNRES ---
Progress Note Date Seen: May 11, 2025 Resident Creating Document: GARY MOROCHO RESIDENT Medical Necessity Reason Pt with a Central, PICC or Fol: No Subjective Review of Systems The patient is a 49-year-old female with prior medical history of type 2 diabetes mellitus, hypertension, CHF, CKD, gastritis, dyslipidemia, and peripheral neuropathy, who presented to the ED with chief complaint of abdominal pain. She refers 2 days ago she onset of epigastric abdominal pain, described as burning and achy, intensity 10/10, nonradiating, associated with nausea, chills, and reflux. She states that the night before presenting to the ED, she had two bright red bloody bowel movements. Upon persistence of symptoms, patient sought medical attention. She denied vomiting, fever, shortness of breath, chest pain, and palpitations. On evaluation in the ED, she was in mild distress and hypertensive. Initial labs are significant for Hb 10.3, HCT 30.1, sodium 134, creatinine 2.36, BUN 29, and glucose 273. UDS is positive for amphetamines. UA significant for possible UTI. Abdominal/pelvis CT unchanged moderate nonspecific bilateral perinephric stranding, and a 4 cm cyst within the cervix felt to represent a large Nabothian cyst. Patient was admitted for further work up and monitoring. Past medical history: type 2 diabetes mellitus, hypertension, CHF, CKD, gastritis, dyslipidemia, and peripheral neuropathy Allergies: Codeine Patient states that she was given codeine 30+ y Past Surgical History: Appendectomy, Cholecystectomy, Social History: Patient denies drug use (UDS + amphetamines), refers she smokes 1 cigarette a day down from 1 pack a day, refers she trying approximately 1 bottle of vodka or Tequila a day for 4 years but quit 3 months ago. States she lives with her and daughter and feels safe. Patient seen at bedside. Patient is a AOx4, she refers the pain has improved significantly, she is able to sleep well, tolerating oral diet, and is ambulating around her room. Currently denies vomiting, fever, bowel movements, chest pain, palpitations. overnight, patient's blood sugar was 573, her insulin regimen was adjusted to 20 units b.i.d.. Labs today show serum glucose 604 and POC glucose of 554, we have switched her to a moderate sliding scale and have increased Lantus to 25 units b.i.d.. additionally, she refers that after started on Rocephin she has pruritus, she was switched to Levaquin which she stated cause the same, we have placed her on p.o. augmentin. On evaluation today, there was some pitting edema of her right calf. Duplex ultrasound of the right calf was ordered which showed no sonographic evidence for deep vein thrombosis in the right lower extremity veins. Due to suspicion of overload, IV furosemide has been given. We will continue to monitor. Objective vital signs Vital Sign Date Time Temp Pulse Resp B/P (MAP) Pulse Ox O2 Delivery O2 Flow Rate FiO2 05/11/25 12:24 97.6 83 16 158/67 (97) 98 97.6 05/11/25 08:00 Room Air* 0 21 Total Intake and Output 05/10/25 05/10/25 05/11/25 15:00 23:00 07:00 Intake Total 100 ml 900 ml 600 ml Balance 100 ml 900 ml 600 ml medications Current Medications Medications Dose Ordered Sig/Mariel Route Start Time Stop Time Status Last Admin Dose Admin Acetaminophen 650 mg Q6HP PRN PO 05/09/25 22:30 Ondansetron HCl 4 mg Q4HP PRN IV 05/09/25 22:30 Pantoprazole Sodium 40 mg BID IV 05/09/25 22:30 05/11/25 10:09 40 MG Sucralfate 1 gm TID PO 05/09/25 22:30 05/11/25 14:44 1 GM Morphine Sulfate 1 mg Q6HP PRN IV 05/09/25 22:30 05/11/25 00:40 1 MG Carvedilol 6.25 mg BID PO 05/10/25 10:00 05/11/25 10:07 6.25 MG Amlodipine Besylate 10 mg DAILY PO 05/09/25 23:30 05/11/25 10:08 10 MG Atorvastatin Calcium 40 mg HS PO 05/10/25 22:00 05/10/25 21:29 40 MG Diagnostic Test (Pha) 1 strip ACHS 05/11/25 11:30 05/11/25 11:38 1 STRIP Insulin Human Regular HS SC 05/11/25 22:00 Insulin Human Regular AC SC 05/11/25 11:30 05/11/25 11:35 15 UNITS Dextrose 50 ml UD PRN IV 05/11/25 11:00 Insulin Glargine 25 units BID@0700,2200 SC 05/11/25 22:00 Amoxicillin/ Clavulanate Potassium 500 mg BID PO 05/11/25 22:00 UNV Examination General: Patient seems uncomfortable, alert and oriented in person place and time. Patient following commands. HEENT: Normocephalic, atraumatic, normal reactive pupils, EOM intact, pink conjunctiva, pink moist mucous membrane Respiratory/pulmonary: Bilateral chest expansion, clear lungs bilaterally, vesicular murmurs present in almost all lung beckham, no associated crackles or wheezes. Cardiovascular: normal RRR, normal S1 and S2 Abdomen: Obese, presence of flat and hypochromic scar on right upper quadrant due to cholecystectomy, presence of flat hypochromic scar in right lower quadrant due to appendectomy, abdomen nondistended, normal bowel sounds, soft, no to palpation, no palpable masses. CASH: No evidence of external hemorrhoids, no bright red blood on glove Extremities: no deformities, 1+ pitting edema of right calf, no edema of left lower extremity, pulses are palpable Skin: No rashes or pruritus, there is no sacral edema present at this time. Neurological: Intact cranial nerves with no focal neurologic deficits, decreased sensation in all toes laboratory and microbiology Laboratory Tests 05/11/25 05:59 Test 05/11/25 05:59 Range/Units Serum Glucose 604 *H 74-106 mg/dL Microbiology Date/Time Source Procedure Growth Status 05/10/25 05:02 Nose MRSA Screen - Final Complete 05/09/25 19:20 Blood Blood Culture - Preliminary NO GROWTH AFTER 24 HOURS OF INCUBATION. Resulted Problem List/Assessment/Plan Problem List/Assessment/Plan Assessment and Plan: Acute abdominal pain likely due to gastritis - Soft mechanical diet , advance as tolerated - Protonix 40 mg IV BID - Sucralfate 1 g t.i.d. p.o. - NS IV once - Morphine 1 g IV q6H PRN - Acetaminophen 650 mg PO q6hr PRN PUD ruled out Possible Upper GI bleed -EGD: 0.5 cm sliding-type hiatal hernia with slightly irregular squamocolumnar junction no significant erosive esophagitis. Mild gastritis otherwise normal examination up to 2nd and 3rd part of the duodenum. -GI: Await for biopsy results, we will place patient on Protonix 40 mg p.o. daily, resume GI soft diet advanced as tolerated, outpatient follow-up with GI to discuss above results and schedule elective screening colonoscopy. -Stool occult blood pending Possible acute complicated UTI -Ceftriaxone 1g IV daily, discontinued -Levaquin IV, stopped -Augmentin 500 BID PO -Blood cultures: Preliminary: No growth after 24 hours ERIK on CKD 4, likely due to VMN Normocytic anemia, likely due to chronic disease secondary to above -Monitor H&H DVT ruled out -Duplex US: no sonographic evidence for deep venous thrombosis in the right lower extremity veins Hypertension -Carvedilol 6.25 mg PO BID -Amlodipine 10 mg PO daily Type 2 Diabetes Mellitus with hyperglycemia, HbA1c: 12.9 (04/17/2025) - Lantus 25units SC b.i.d. - Moderate sliding scale - Accu-Cheks Chronic diastolic heart failure, not exacerbated -Echo 04/07/2024: with concentric left ventricular hypertrophy, normal left ventricular size and dimension, normal left ventricular systolic function estimated ejection fraction 60%. There is grade 1 diastolic dysfunction. Hyperlipidemia - Atorvastatin 40 mg PO HS Obesity, BMI 33.0 kg/m2 Nabothian Cyst -Abdominal/pelvic CT: 4 cm cyst within the cervix felt to represent a large Nabothian cyst Tobacco use - Patient was counseled on the importance of tobacco cessation for over 15 minutes, she was offered nicotine patches but refused Amphetamine use - patient was counseled on the importance of cessation of amphetamines for over 15 minutes. History of alcohol abuse Mechanical soft DVT prophylaxis: Not indicated due to suspicion of GI bleed GI prophylaxis: Protonix 40 mg IV BID Case discussed with Dr. Rolle Goals of care discussed with the patient for over 40minutes. FULL CODE. Plan discussed with: Patient My Orders My Orders Orders - GARY MOROCHO RESIDENT Procedure Category Date Status Time Urine Bacterial CHIRAG 05/10/25 In Process Culture 17:08 Rt Lower Dvt US 05/11/25 Resulted 10:30 Glucose Blood PHA 05/11/25 In Process (Accu-Chek Comfort 11:30 Insulin R (Human) PHA 05/11/25 In Process (Insulin R) 22:00 Insulin R (Human) PHA 05/11/25 In Process (Insulin R) 11:30 Dextrose 50% Syringe PHA 05/11/25 In Process 11:00 Chest Xray 1 View XY 05/11/25 Resulted 10:53 Insulin Lantus PHA 05/11/25 In Process (Glargine) (Lantus) 22:00 Amoxicillin/Clavulanate PHA 05/11/25 Logged Tablet (Augmenti 22:00 Date of Service: May 11, 2025 Billing Provider: NIKKIE ROLLE MD Common Visit Codes: [id number] INP/OBS CARE(HIGH) GARY MOROCHO RESIDENT May 11, 2025 15:29 NIKKIE ROLLE MD May 15, 2025 22:48
[2025-05-11] MEDS: FUROSEMIDE 20 MG/2 ML VIAL IV ONE (16:55)
[2025-05-11] MEDS: ACETAMINOPHEN 325 MG TAB PO PRN (17:25)
[2025-05-11] MEDS: AMOXICILLIN/CLAVULAN 500 MG TAB PO SCH (22:00)
[2025-05-12] VITALS (8 sets, daily range): BP systolic 124–159; BP diastolic 64–79; PULSE 68–80; RESP 18–20; TEMP 97.7–98.2; O2SAT 96–100
[2025-05-12] MEDS ORDERED: DEXTROSE (50%) 50ML SYRG IV ONE (00:45)
[2025-05-12] MEDS: InsuLIN REG 1unit/0.01ml Soln (100units/ml) SC ONE (01:42)
[2025-05-12] MEDS: ACCU-CHEK COMFORT CURVE STRIP VI ONE (02:04)
[2025-05-12 06:43] LABS: Hemoglobin 9.9 g/dL (12.2-16.2); Nucleated Red Blood Cells % 0.1 %
[2025-05-12 06:46] LABS: Hematocrit 29.9 % (36.0-46.0); Mean Corpuscular Hemoglobin 28.9 pg (28.0-32.0); Mean Corpuscular Volume 87.2 fL (80.0-100.0)
[2025-05-12 06:49] LABS: Anion Gap 9 (5-15); Chloride 106 mmol/L (98-107); Potassium 4.1 mmol/L (3.5-5.1)
[2025-05-12 06:50] LABS: Calcium 8.9 mg/dL (8.7-10.4)
[2025-05-12 06:54] LABS: Carbon Dioxide 20 mmol/L (20-31); Sodium 135 mmol/L (136-145)
[2025-05-12 06:55] LABS: BUN/Creatinine Ratio 13.7 (10.0-20.0)
[2025-05-12 06:57] LABS: Blood Urea Nitrogen 35 mg/dL (9-23); Glucose 178 mg/dL (74-106)
[2025-05-12] MEDS: INSULIN LISPRO (HUMAN) 100 UNITS/ML ML SC SCH (07:25)
[2025-05-12] MEDS: INSULIN LANTUS (GLARGINE) 1 /0.01ml (100units/ml) SC SCH (07:26)
[2025-05-12] MEDS: PIPERACILLIN-TAZOB 3.375GM 100 ML IV SCH (12:15)
--- NOTE | 2025-05-12 14:06 | DVHPNRES ---
Progress Note Date Seen: May 12, 2025 Resident Creating Document: KOTA JONES RESIDENT Medical Necessity Reason Pt with a Central, PICC or Fol: No Subjective Review of Systems The patient is a 49-year-old female with prior medical history of type 2 diabetes mellitus, hypertension, CHF, CKD, gastritis, dyslipidemia, and peripheral neuropathy, who presented to the ED with chief complaint of abdominal pain. She refers 2 days ago she had the onset of epigastric abdominal pain, described as burning and achy, intensity 10/10, nonradiating, associated with nausea, chills, and reflux. She states that the night before presenting to the ED, she had two bright red bloody bowel movements. Upon persistence of symptoms, patient sought medical attention. She denied vomiting, fever, shortness of breath, chest pain, and palpitations. On evaluation in the ED, she was in mild distress and hypertensive. Initial labs are significant for Hb 10.3, HCT 30.1, sodium 134, creatinine 2.36, BUN 29, and glucose 273. UDS is positive for amphetamines. UA significant for possible UTI. Abdominal/pelvis CT unchanged moderate nonspecific bilateral perinephric stranding, and a 4 cm cyst within the cervix felt to represent a large Nabothian cyst. Patient was admitted for further work up and monitoring. Past medical history: type 2 diabetes mellitus, hypertension, CHF, CKD, gastritis, dyslipidemia, and peripheral neuropathy Allergies: Codeine, Patient states that she was given codeine 30+ years ago Past Surgical History: Appendectomy, Cholecystectomy, Social History: Patient denies drug use (UDS + amphetamines), refers she smokes 1 cigarette a day down from 1 pack a day, refers she had approximately 1 bottle of vodka or Tequila a day for 4 years but quit 3 months ago. States she lives with her and daughter and feels safe. Patient seen at bedside. Patient is a AOx4, she refers the pain has improved significantly, she is able to sleep well, tolerating oral diet, and is ambulating around her room. Currently denies vomiting, fever, bloody bowel movements, chest pain, palpitations. overnight, patient's blood sugar was 573, her insulin regimen was adjusted to 20 units b.i.d.. Labs next morning showed serum glucose 604 and POC glucose of 554, we have switched her to a moderate sliding scale and have increased Lantus to 25 units b.i.d.. Additionally, she refers that after she was started on Rocephin, she had pruritus and hives, she was switched to Levaquin which she stated cause the same, we have placed her on p.o. augmentin. On evaluation today, there was some pitting edema of her right calf. Duplex ultrasound of the right calf was ordered which showed no sonographic evidence for deep vein thrombosis in the right lower extremity veins. Due to suspicion of overload, IV furosemide has been given. We will continue to monitor. The pain has reduced but she complained of shortness of breath and her D dimer was found to be 1.53, so a V/Q scan was ordered for her to rule out PE. Augmentin was discontinued and Zosyn was started. Gastroenterology reviewed the patient and asked to follow up outpatient for elective colonocscopy. General: Patient seems uncomfortable, alert and oriented in person place and time. Patient following commands. HEENT: Normocephalic, atraumatic, normal reactive pupils, EOM intact, pink conjunctiva, pink moist mucous membrane Respiratory/pulmonary: Bilateral chest expansion, clear lungs bilaterally, vesicular murmurs present in almost all lung beckham, no associated crackles or wheezes. Cardiovascular: normal RRR, normal S1 and S2 Abdomen: Obese, presence of flat and hypochromic scar on right upper quadrant due to cholecystectomy, presence of flat hypochromic scar in right lower quadrant due to appendectomy, abdomen nondistended, normal bowel sounds, soft, no to palpation, no palpable masses. CASH: No evidence of external hemorrhoids, no bright red blood on glove Extremities: no deformities, 1+ pitting edema of right calf, no edema of left lower extremity, pulses are palpable Skin: No rashes or pruritus, there is no sacral edema present at this time. Neurological: Intact cranial nerves with no focal neurologic deficits, decreased sensation in all toes Objective vital signs Vital Sign Date Time Temp Pulse Resp B/P (MAP) Pulse Ox O2 Delivery O2 Flow Rate FiO2 05/12/25 10:57 159/74 05/12/25 10:57 68 05/12/25 08:16 97.7 20 100 97.7 05/12/25 08:00 Room Air* 0 21 Total Intake and Output 05/11/25 05/11/25 05/12/25 15:00 23:00 07:00 Intake Total 1500 ml 600 ml Balance 1500 ml 600 ml medications Current Medications Medications Dose Ordered Sig/Mariel Route Start Time Stop Time Status Last Admin Dose Admin Acetaminophen 650 mg Q6HP PRN PO 05/09/25 22:30 05/12/25 11:07 650 MG Ondansetron HCl 4 mg Q4HP PRN IV 05/09/25 22:30 Pantoprazole Sodium 40 mg BID IV 05/09/25 22:30 05/12/25 10:58 40 MG Sucralfate 1 gm TID PO 05/09/25 22:30 05/12/25 12:26 1 GM Morphine Sulfate 1 mg Q6HP PRN IV 05/09/25 22:30 05/11/25 00:40 1 MG Carvedilol 6.25 mg BID PO 05/10/25 10:00 05/12/25 10:57 6.25 MG Amlodipine Besylate 10 mg DAILY PO 05/09/25 23:30 05/12/25 10:57 10 MG Atorvastatin Calcium 40 mg HS PO 05/10/25 22:00 05/11/25 22:16 40 MG Amoxicillin/ Clavulanate Potassium 500 mg BID PO 05/11/25 22:00 Hold Diagnostic Test (Pha) 1 strip IQ4HR 05/11/25 23:45 05/12/25 12:26 1 STRIP Dextrose 50 ml UD PRN IV 05/11/25 23:45 Insulin Glargine 35 units BID@0700,2200 LA 05/12/25 07:00 05/12/25 07:26 35 UNITS Insulin Human Lispro AC LA 05/12/25 07:00 05/12/25 11:30 5 UNITS Piperacillin Sod/ Tazobactam Sod 100 ml @ 25 mls/hr Q8HR IV 05/12/25 14:00 05/12/25 12:15 25 MLS/HR laboratory and microbiology Laboratory Tests 05/12/25 05:49 Test 05/12/25 05:49 Range/Units Serum Glucose 178 H 74-106 mg/dL Microbiology Date/Time Source Procedure Growth Status 05/10/25 05:02 Nose MRSA Screen - Final Complete 05/09/25 19:20 Blood Blood Culture - Preliminary NO GROWTH AFTER 48 HOURS OF INCUBATION. Resulted 05/09/25 18:40 Voided Urine Urine Culture - Preliminary Streptococcus Group B Resulted Labs and/or images reviewed: Labs reviewed by me Problem List/Assessment/Plan Problem List/Assessment/Plan Acute abdominal pain likely due to gastritis - Soft mechanical diet , advance as tolerated - Protonix 40 mg IV BID - Sucralfate 1 g t.i.d. p.o. - NS IV once - Morphine 1 g IV q6H PRN - Acetaminophen 650 mg PO q6hr PRN PUD ruled out Possible Upper GI bleed -EGD: 0.5 cm sliding-type hiatal hernia with slightly irregular squamocolumnar junction no significant erosive esophagitis. Mild gastritis otherwise normal examination up to 2nd and 3rd part of the duodenum. -GI: Await for biopsy results, we will place patient on Protonix 40 mg p.o. daily, resume GI soft diet advanced as tolerated, outpatient follow-up with GI to discuss above results and schedule elective screening colonoscopy. -Stool occult blood pending Possible acute complicated UTI -Ceftriaxone 1g IV daily, discontinued -Levaquin IV, stopped -Augmentin 500 BID PO, stopped -Zosyn 1g IV daily -Blood cultures: Preliminary: No growth after 24 hours ERIK on CKD 4, likely due to VMN Normocytic anemia, likely due to chronic disease secondary to above -Monitor H&H DVT ruled out -Duplex US: no sonographic evidence for deep venous thrombosis in the right lower extremity veins Hypertension -Carvedilol 6.25 mg PO BID -Amlodipine 10 mg PO daily Type 2 Diabetes Mellitus with hyperglycemia, HbA1c: 12.9 (04/17/2025) - Lantus 25units SC b.i.d. - Moderate sliding scale - Accu-Cheks Chronic diastolic heart failure, not exacerbated -Echo 04/07/2024: with concentric left ventricular hypertrophy, normal left ventricular size and dimension, normal left ventricular systolic function estimated ejection fraction 60%. There is grade 1 diastolic dysfunction. Hyperlipidemia - Atorvastatin 40 mg PO HS Obesity, BMI 33.0 kg/m2 Nabothian Cyst -Abdominal/pelvic CT: 4 cm cyst within the cervix felt to represent a large Nabothian cyst Tobacco use - Patient was counseled on the importance of tobacco cessation for over 15 minutes, she was offered nicotine patches but refused Amphetamine use - patient was counseled on the importance of cessation of amphetamines for over 15 minutes. History of alcohol abuse Mechanical soft DVT prophylaxis: Not indicated due to suspicion of GI bleed GI prophylaxis: Protonix 40 mg IV BID Case discussed with Dr. Rolle Goals of care discussed with the patient for over 40minutes. FULL CODE. Plan discussed with: Patient Plan discussed with: Patient Date of Service: May 12, 2025 Billing Provider: NIKKIE ROLLE MD Common Visit Codes: [id number] INP/OBS CARE(HIGH) KOTA JONES RESIDENT May 12, 2025 14:06 NIKKIE ROLLE MD May 15, 2025 22:49
--- NOTE | 2025-05-12 14:08 | DVHPN2 ---
Progress Note - Dictate Date Seen: May 12, 2025 Medical Necessity Reason Pt with a Central, PICC or Fol: No Subjective Patient is a AOx4, she refers the pain has improved significantly, she is able to sleep well, tolerating oral diet, and is ambulating around her room. Currently sitting at the edge of the bed eating her meal with family Patient's hyperglycemia has improved Mild chest pain awaiting imaging study EGD findings discussed with patient, minimal gastritis No further GI bleeding vital signs Vital Sign Date Time Temp Pulse Resp B/P (MAP) Pulse Ox O2 Delivery O2 Flow Rate FiO2 05/12/25 10:57 159/74 05/12/25 10:57 68 05/12/25 08:16 97.7 20 100 97.7 05/12/25 08:00 Room Air* 0 21 Total Intake and Output 05/11/25 05/11/25 05/12/25 15:00 23:00 07:00 Intake Total 1500 ml 600 ml Balance 1500 ml 600 ml medications Current Medications Medications Dose Ordered Sig/Mariel Route Start Time Stop Time Status Last Admin Dose Admin Acetaminophen 650 mg Q6HP PRN PO 05/09/25 22:30 05/12/25 11:07 650 MG Ondansetron HCl 4 mg Q4HP PRN IV 05/09/25 22:30 Pantoprazole Sodium 40 mg BID IV 05/09/25 22:30 05/12/25 10:58 40 MG Sucralfate 1 gm TID PO 05/09/25 22:30 05/12/25 12:26 1 GM Morphine Sulfate 1 mg Q6HP PRN IV 05/09/25 22:30 05/11/25 00:40 1 MG Carvedilol 6.25 mg BID PO 05/10/25 10:00 05/12/25 10:57 6.25 MG Amlodipine Besylate 10 mg DAILY PO 05/09/25 23:30 05/12/25 10:57 10 MG Atorvastatin Calcium 40 mg HS PO 05/10/25 22:00 05/11/25 22:16 40 MG Amoxicillin/ Clavulanate Potassium 500 mg BID PO 05/11/25 22:00 Hold Diagnostic Test (Pha) 1 strip IQ4HR 05/11/25 23:45 05/12/25 12:26 1 STRIP Dextrose 50 ml UD PRN IV 05/11/25 23:45 Insulin Glargine 35 units BID@0700,2200 [place] 05/12/25 07:00 05/12/25 07:26 35 UNITS Insulin Human Lispro AC MO 05/12/25 07:00 05/12/25 11:30 5 UNITS Piperacillin Sod/ Tazobactam Sod 100 ml @ 25 mls/hr Q8HR IV 05/12/25 14:00 05/12/25 12:15 25 MLS/HR objective General Appearance: Alert, Oriented X3, Cooperative, no distress HEENT: Atraumatic, PERRLA, EOMI, Mucous membr. moist/pink Respiratory: Clear to auscultation, Normal air movement Cardiovascular: Regular rate, Normal S1, Normal S2, No murmurs Abdominal: Normal bowel sounds, Soft, No masses, Other (Tenderness to palpation in the periumbilical and epigastric area) Extremities: No clubbing, No cyanosis, No edema, Normal pulses, No tenderness/swelling Skin: No rashes, No breakdown, No significant lesion Neuro: Normal gait, Normal speech, Strength at 5/5 X4 ext, Normal tone, Sensation intact, Cranial nerves 3-12 NL, Reflexes 2+ Psych/Mental Status: Mental status NL, Mood NL laboratory and microbiology Laboratory Tests 05/12/25 05:49 Test 05/12/25 05:49 Range/Units Serum Glucose 178 H 74-106 mg/dL Problems(with codes): (1) Upper GI bleed (2) Abdominal pain, acute, epigastric (3) Diabetes mellitus with hyperglycemia (4) Urinary tract infection (5) Chronic renal failure, stage 3 (moderate) Prognosis Plan Patient appears stable from GI point of view Advance diet as tolerated Continue PPI Patient is scheduled for a V/Q scan today Outpatient follow up with GI Services for elective colonoscopy Discharge planning as per hospitalist Plan discussed with: Patient, Spouse, Other ELEUTERIO JUAREZ MD May 12, 2025 14:08
[2025-05-12] MEDS: EMPAGLIFLOZIN 10 MG TAB PO SCH (15:30)
[2025-05-13] VITALS (7 sets, daily range): BP systolic 122–155; BP diastolic 59–76; PULSE 65–76; RESP 16–18; TEMP 97.7–98.2; O2SAT 95–99
[2025-05-13 08:07] LABS: Hematocrit 27.9 % (36.0-46.0); Hemoglobin 9.3 g/dL (12.2-16.2); Mean Corpuscular Hemoglobin 29.3 pg (28.0-32.0); Mean Corpuscular Volume 88.1 fL (80.0-100.0); Nucleated Red Blood Cells % 0.0 %
[2025-05-13 08:13] LABS: Anion Gap 11 (5-15); Chloride 106 mmol/L (98-107); Potassium 3.9 mmol/L (3.5-5.1)
[2025-05-13 08:19] LABS: BUN/Creatinine Ratio 13.1 (10.0-20.0)
[2025-05-13 08:20] LABS: Calcium 8.3 mg/dL (8.7-10.4); Carbon Dioxide 18 mmol/L (20-31); Sodium 135 mmol/L (136-145)
[2025-05-13 08:25] LABS: Blood Urea Nitrogen 35 mg/dL (9-23); Glucose 339 mg/dL (74-106)
--- NOTE | 2025-05-13 17:53 | DVHPNRES ---
Progress Note Date Seen: May 13, 2025 Resident Creating Document: GARY MOROCHO RESIDENT Medical Necessity Reason Pt with a Central, PICC or Fol: No Subjective Review of Systems The patient is a 49-year-old female with prior medical history of type 2 diabetes mellitus, hypertension, CHF, CKD, gastritis, dyslipidemia, and peripheral neuropathy, who presented to the ED with chief complaint of abdominal pain. She refers 2 days ago she onset of epigastric abdominal pain, described as burning and achy, intensity 10/10, nonradiating, associated with nausea, chills, and reflux. She states that the night before presenting to the ED, she had two bright red bloody bowel movements. Upon persistence of symptoms, patient sought medical attention. She denied vomiting, fever, shortness of breath, chest pain, and palpitations. On evaluation in the ED, she was in mild distress and hypertensive. Initial labs are significant for Hb 10.3, HCT 30.1, sodium 134, creatinine 2.36, BUN 29, and glucose 273. UDS is positive for amphetamines. UA significant for possible UTI. Abdominal/pelvis CT unchanged moderate nonspecific bilateral perinephric stranding, and a 4 cm cyst within the cervix felt to represent a large Nabothian cyst. Patient was admitted for further work up and monitoring. Past medical history: type 2 diabetes mellitus, hypertension, CHF, CKD, gastritis, dyslipidemia, and peripheral neuropathy Allergies: Codeine Patient states that she was given codeine 30+ y Past Surgical History: Appendectomy, Cholecystectomy, Social History: Patient denies drug use (UDS + amphetamines), refers she smokes 1 cigarette a day down from 1 pack a day, refers she trying approximately 1 bottle of vodka or Tequila a day for 4 years but quit 3 months ago. States she lives with her and daughter and feels safe. Patient seen at bedside. Patient is AOx4, states she feels well, abdominal pain has resolved, she has been able to sleep well, is tolerating oral diet, and is ambulating around her room. Currently denies vomiting, fever, bowel movements, chest pain, and palpitations. We are still unable to have adequate control of blood glucose. The patient has had food from outside being brought to her by her family. e will be adding diabetes education to teach the patient important lifestyle modifications needed in order to optimize diabetes control. Additionally, we have increased her insulin regimen to 45 units BID. Patient is pending VQ scan. If scan is normal and blood sugar is in control, possible discharge tomorrow. We will continue to monitor. Objective vital signs Vital Sign Date Time Temp Pulse Resp B/P (MAP) Pulse Ox O2 Delivery O2 Flow Rate FiO2 05/13/25 13:00 98.0 70 18 122/65 (84) 99 98.0 05/13/25 08:00 Room Air* 0 21 Total Intake and Output 05/12/25 05/12/25 05/13/25 15:00 23:00 07:00 Intake Total 600 ml 900 ml Output Total 750 ml Balance -150 ml 900 ml medications Current Medications Medications Dose Ordered Sig/Mariel Route Start Time Stop Time Status Last Admin Dose Admin Acetaminophen 650 mg Q6HP PRN PO 05/09/25 22:30 05/13/25 13:28 650 MG Ondansetron HCl 4 mg Q4HP PRN IV 05/09/25 22:30 Pantoprazole Sodium 40 mg BID IV 05/09/25 22:30 05/13/25 09:09 40 MG Sucralfate 1 gm TID PO 05/09/25 22:30 05/13/25 13:20 1 GM Morphine Sulfate 1 mg Q6HP PRN IV 05/09/25 22:30 05/13/25 12:03 1 MG Carvedilol 6.25 mg BID PO 05/10/25 10:00 05/13/25 09:12 6.25 MG Amlodipine Besylate 10 mg DAILY PO 05/09/25 23:30 05/13/25 09:11 10 MG Atorvastatin Calcium 40 mg HS PO 05/10/25 22:00 05/12/25 22:16 40 MG Diagnostic Test (Pha) 1 strip IQ4HR 05/11/25 23:45 05/13/25 16:00 1 STRIP Dextrose 50 ml UD PRN IV 05/11/25 23:45 Insulin Human Lispro AC SC 05/12/25 07:00 05/13/25 16:44 1 UNITS Piperacillin Sod/ Tazobactam Sod 100 ml @ 25 mls/hr Q8HR IV 05/12/25 14:00 05/13/25 13:20 25 MLS/HR Insulin Glargine 45 units BID@0700,2200 SC 05/13/25 22:00 Examination General: Patient seems comfortable, alert and oriented in person place and time. Patient following commands. HEENT: Normocephalic, atraumatic, normal reactive pupils, EOM intact, pink conjunctiva, pink moist mucous membrane Respiratory/pulmonary: Bilateral chest expansion, clear lungs bilaterally, vesicular murmurs present in almost all lung beckham, no associated crackles or wheezes. Cardiovascular: normal RRR, normal S1 and S2 Abdomen: Obese, presence of flat and hypochromic scar on right upper quadrant due to cholecystectomy, presence of flat hypochromic scar in right lower quadrant due to appendectomy, abdomen nondistended, normal bowel sounds, soft, pain to palpation of epigastric region and periumbilical region, no palpable masses. CASH: No evidence of external hemorrhoids, no bright red blood on glove Extremities: no deformities, there is no peripheral edema present at the lower extremities, pulses are palpable Skin: No rashes or pruritus, there is no sacral edema present at this time. Neurological: Intact cranial nerves with no focal neurologic deficits, decreased sensation in all toes laboratory and microbiology Laboratory Tests 05/13/25 05:38 Test 05/13/25 05:38 Range/Units Serum Glucose 339 H 74-106 mg/dL Microbiology Date/Time Source Procedure Growth Status 05/10/25 05:02 Nose MRSA Screen - Final Complete 05/09/25 19:20 Blood Blood Culture - Preliminary NO GROWTH AFTER 72 HOURS OF INCUBATION. Resulted 05/09/25 18:40 Voided Urine Urine Culture - Final Streptococcus Group B Complete Problem List/Assessment/Plan Problem List/Assessment/Plan Assessment and Plan: Acute abdominal pain likely due to gastritis - Soft mechanical diet , advance as tolerated - Protonix 40 mg PO daily - Sucralfate 1 g t.i.d. p.o. - NS IV once - Morphine 1 g IV q6H PRN - Acetaminophen 650 mg PO q6hr PRN PUD ruled out Possible Upper GI bleed -EGD: 0.5 cm sliding-type hiatal hernia with slightly irregular squamocolumnar junction no significant erosive esophagitis. Mild gastritis otherwise normal examination up to 2nd and 3rd part of the duodenum. -GI: Await for biopsy results, we will place patient on Protonix 40 mg p.o. daily, resume GI soft diet advanced as tolerated, outpatient follow-up with GI to discuss above results and schedule elective screening colonoscopy. -Stool occult blood pending Possible acute complicated UTI -Ceftriaxone 1g IV daily, discontinued -Levaquin IV, stopped -Augmentin 500 BID PO, discontinued -Zosyn IV q8 hours -Blood cultures: Preliminary: No growth after 72 hours of incubation -Urine culture: 80,000 CFU/mL Mixed gram positive parminder including beta hemolytic group b Strep. ERIK on CKD 4, likely due to VMN Normocytic anemia, likely due to chronic disease secondary to above -Monitor H&H DVT ruled out -Duplex US: nonographic evidence for deep venous thrombosis in the right lower extremity veins Hypertension -Carvedilol 6.25 mg PO BID -Amlodipine 10 mg PO daily Type 2 Diabetes Mellitus with hyperglycemia, HbA1c: 12.9 (04/17/2025) - Lantus 45units SC b.i.d. - Jardiance 10 mg PO daily, discontinue - Moderate sliding scale - Accu-Cheks - Carbohydrate consistent diet Hyponatremia, resolved Chronic diastolic heart failure, not exacerbated -Echo 04/07/2024: with concentric left ventricular hypertrophy, normal left ventricular size and dimension, normal left ventricular systolic function estimated ejection fraction 60%. There is grade 1 diastolic dysfunction. Hyperlipidemia - Atorvastatin 40 mg PO HS Obesity, BMI 33.0 kg/m2 Nabothian Cyst -Abdominal/pelvic CT: 4 cm cyst within the cervix felt to represent a large Nabothian cyst Tobacco use - Patient was counseled on the importance of tobacco cessation for over 12 minutes, she was offered nicotine patches but refused Amphetamine use - patient was counseled on the importance of cessation of amphetamines for over 12 minutes. History of alcohol abuse Consistent carbohydrate diet DVT prophylaxis: Not indicated due to suspicion of GI bleed GI prophylaxis: Protonix 40 mg IV BID Case discussed with Dr. Norris Goals of care discussed with the patient for over 25 minutes. FULL CODE. Plan discussed with: Patient My Orders My Orders Orders - GARY MOROCHO RESIDENT Procedure Category Date Status Time Provide Diabetic ORDERS 05/13/25 Transmitted Education 15:31 Insulin Lantus PHA 05/13/25 In Process (Glargine) (Lantus) 22:00 Date of Service: May 13, 2025 Billing Provider: ZULY NORRIS MD Common Visit Codes: [id number] INP/OBS CARE(HIGH) GARY MOROCHO RESIDENT May 13, 2025 17:53 ZULY NORRIS MD May 14, 2025 19:25
--- NOTE | 2025-05-13 20:58 | DVHPN2 ---
Progress Note - Dictate Date Seen: May 13, 2025 Medical Necessity Reason Pt with a Central, PICC or Fol: No Subjective Patient is a AOx4, she refers the pain has resolved she is able to sleep well, tolerating oral diet, and is ambulating around her room. Patient's hyperglycemia is improving Mild chest pain awaiting VQ scan EGD findings discussed with patient, minimal gastritis No further GI bleeding vital signs Vital Sign Date Time Temp Pulse Resp B/P (MAP) Pulse Ox O2 Delivery O2 Flow Rate FiO2 05/13/25 17:00 98.2 76 18 129/64 (85) 95 98.2 05/13/25 08:00 Room Air* 0 21 Total Intake and Output 05/12/25 05/12/25 05/13/25 15:00 23:00 07:00 Intake Total 600 ml 900 ml Output Total 750 ml Balance -150 ml 900 ml medications Current Medications Medications Dose Ordered Sig/Mariel Route Start Time Stop Time Status Last Admin Dose Admin Acetaminophen 650 mg Q6HP PRN PO 05/09/25 22:30 05/13/25 13:28 650 MG Ondansetron HCl 4 mg Q4HP PRN IV 05/09/25 22:30 Pantoprazole Sodium 40 mg BID IV 05/09/25 22:30 05/13/25 09:09 40 MG Sucralfate 1 gm TID PO 05/09/25 22:30 05/13/25 13:20 1 GM Morphine Sulfate 1 mg Q6HP PRN IV 05/09/25 22:30 05/13/25 12:03 1 MG Carvedilol 6.25 mg BID PO 05/10/25 10:00 05/13/25 09:12 6.25 MG Amlodipine Besylate 10 mg DAILY PO 05/09/25 23:30 05/13/25 09:11 10 MG Atorvastatin Calcium 40 mg HS PO 05/10/25 22:00 05/12/25 22:16 40 MG Diagnostic Test (Pha) 1 strip IQ4HR 05/11/25 23:45 05/13/25 16:00 1 STRIP Dextrose 50 ml UD PRN IV 05/11/25 23:45 Insulin Human Lispro AC SC 05/12/25 07:00 05/13/25 16:44 1 UNITS Piperacillin Sod/ Tazobactam Sod 100 ml @ 25 mls/hr Q8HR IV 05/12/25 14:00 05/13/25 13:20 25 MLS/HR Insulin Glargine 45 units BID@0700,2200 SC 05/13/25 22:00 objective General Appearance: Alert, Oriented X3, Cooperative, no distress HEENT: Atraumatic, PERRLA, EOMI, Mucous membr. moist/pink Respiratory: Clear to auscultation, Normal air movement Cardiovascular: Regular rate, Normal S1, Normal S2, No murmurs Abdominal: Normal bowel sounds, Soft, No masses, Other (Tenderness to palpation in the periumbilical and epigastric area) Extremities: No clubbing, No cyanosis, No edema, Normal pulses, No tenderness/swelling Skin: No rashes, No breakdown, No significant lesion Neuro: Normal gait, Normal speech, Strength at 5/5 X4 ext, Normal tone, Sensation intact, Cranial nerves 3-12 NL, Reflexes 2+ Psych/Mental Status: Mental status NL, Mood NL laboratory and microbiology Laboratory Tests 05/13/25 05:38 Test 05/13/25 05:38 Range/Units Serum Glucose 339 H 74-106 mg/dL Problems(with codes): (1) Diabetes mellitus with hyperglycemia (2) Abdominal pain, acute, epigastric (3) Upper GI bleed (4) Pyelonephritis (5) Chronic renal failure, stage 3 (moderate) Prognosis PLAN Plan Patient appears to be stable from Gi poinht of view Continue PPI Patient is scheduled for a V/Q scan today Outpatient follow up with GI Services for elective colonoscopy Diabetes education to teach the patient important lifestyle modifications needed in order to optimize diabetes control. Additionally increased her insulin regimen to 45 units BID. Patient is pending VQ scan. If scan is normal and blood sugar is in control, possible discharge tomorrow. Plan discussed with: Patient, Other ELEUTERIO JUAREZ MD May 13, 2025 20:58
[2025-05-13] MEDS: INSULIN LANTUS (GLARGINE) 1 /0.01ml (100units/ml) SC SCH (21:17)
[2025-05-14 01:17] VITALS: BP 138/74; PULSE 71; RESP 17; TEMP 98; O2SAT 98
[2025-05-14 05:00] VITALS: BP 153/70; PULSE 69; RESP 20; TEMP 98.1; O2SAT 97
[2025-05-14 06:04] LABS: Hematocrit 26.5 % (36.0-46.0); Hemoglobin 9.1 g/dL (12.2-16.2); Mean Corpuscular Hemoglobin 29.7 pg (28.0-32.0); Mean Corpuscular Volume 87.0 fL (80.0-100.0); Nucleated Red Blood Cells % 0.1 %
[2025-05-14 06:06] LABS: Anion Gap 8 (5-15); Carbon Dioxide 21 mmol/L (20-31); Potassium 4.1 mmol/L (3.5-5.1); Sodium 137 mmol/L (136-145)
[2025-05-14 06:11] LABS: Calcium 8.4 mg/dL (8.7-10.4); Chloride 108 mmol/L (98-107)
[2025-05-14 06:12] LABS: BUN/Creatinine Ratio 12.7 (10.0-20.0)
[2025-05-14 06:14] LABS: Blood Urea Nitrogen 31 mg/dL (9-23); Glucose 165 mg/dL (74-106)
[2025-05-14 08:35] VITALS: BP 160/65; PULSE 73; RESP 18; TEMP 98.3; O2SAT 96
--- NOTE | 2025-05-14 09:21 | DVH ---
NUCLEAR MEDICINE VENTILATION/PERFUSION LUNG SCAN. INDICATION: PULMONARY EMBOLISM COMPARISON: XY CHEST XRAY 1 VIEW on DOS: 05/11/25, XY CHEST PORTABLE on DOS: 12/14/24, XY CHEST PORTABL E on DOS: 12/11/24, XY CHEST XRAY 1 VIEW on DOS: 10/23/24, XY CHEST XRAY 1 VIEW on DOS: 09/06/24 TECHNIQUE: Following intravenous demonstration of 5.6 millicuries of technetium 99m MAA, and inhala tion of 5.5 mCi of Xe 133 scintigrams were obtained in multiple projections of the lungs. FINDINGS: There is normal uptake of radionuclide on both the ventilation and perfusion portions of the examinat ion. No mismatched perfusion defects are demonstrated. Uptake is normally homogeneous. IMPRESSION: Low probability for PE.
[2025-05-14] MEDS ORDERED: CEPH250C PO (12:25)
[2025-05-14 12:57] VITALS: BP 160/65; PULSE 73
[2025-05-14 13:25] VITALS: BP 164/62; PULSE 73; RESP 18; TEMP 98.2; O2SAT 98
--- NOTE | 2025-05-14 15:43 | DVHDSRES ---
Discharge Summary Date of Admission Resident Creating Document: GARY MOROCHO RESIDENT May 09, 2025 at 22:20 Date of Discharge: May 14, 2025 Admitting Diagnosis Acute abdominal pain Labs/Diagnostic Data: Laboratory Results Test 05/14/25 11:57 05/14/25 05:20 05/13/25 05:38 05/12/25 05:49 POC Glucose 160 mg/dl (70-106) White Blood Count 10.4 10^3/uL (4.4-10.8) Red Blood Count 3.05 10^6/uL (4.0-5.20) Hemoglobin 9.1 g/dL (12.2-16.2) Hematocrit 26.5 % (36.0-46.0) Mean Corpuscular Volume 87.0 fL (80.0-100.0) Mean Corpuscular Hemoglobin 29.7 pg (28.0-32.0) Mean Corpuscular Hemoglobin Concent 34.2 g/dL (32.0-36.0) Red Cell Distribution Width 14.8 % (11.8-14.3) Platelet Count 394 10^3/uL (140-450) Mean Platelet Volume 9.0 fL (6.9-10.8) Neutrophils (%) (Auto) 58.1 % (37.0-80.0) Lymphocytes (%) (Auto) 30.3 % (10.0-50.0) Monocytes (%) (Auto) 8.6 % (0.0-12.0) Eosinophils (%) (Auto) 2.1 % (0.0-7.0) Basophils (%) (Auto) 0.9 % (0.0-2.0) Neutrophils # (Auto) 6.0 10 ^3/uL (1.6-8.6) Lymphocytes # (Auto) 3.1 10 ^3/uL (0.4-5.4) Monocytes # (Auto) 0.9 10 ^3/uL (0-1.3) Eosinophils # (Auto) 0.2 10 ^3/uL (0-0.8) Basophils # (Auto) 0.1 10 ^3/uL (0-0.2) Nucleated Red Blood Cells 0.1 % Sodium Level 137 mmol/L (136-145) Potassium Level 4.1 mmol/L (3.5-5.1) Chloride Level 108 mmol/L (98-107) Carbon Dioxide Level 21 mmol/L (20-31) Anion Gap 8 (5-15) Blood Urea Nitrogen 31 mg/dL (9-23) Creatinine 2.44 mg/dL (0.550-1.02) Glomerular Filtration Rate Calc 24 mL/min (>90) BUN/Creatinine Ratio 12.7 (10.0-20.0) Serum Glucose 165 mg/dL (74-106) Calcium Level 8.4 mg/dL (8.7-10.4) Phosphorus Level 4.0 mg/dL (2.4-5.1) Vitamin D 25-Hydroxy 23.0 ng/mL (30.0-100) Parathyroid Hormone (Intact) 406.9 pg/mL (18.4-80.1) Lipase 49 U/L (12-53) Test 05/11/25 13:48 05/10/25 05:02 05/09/25 22:30 05/09/25 19:20 D-Dimer, Quantitative 1.53 mg/L FEU (0.0-0.49) Beta HCG, Quantitative 1.1 mIU/mL (1.5-4.2) Lactic Acid Level 0.6 mmol/L (0.4-2.0) Test 05/09/25 18:40 05/09/25 17:41 Urine Color Colorless (Yellow) Urine Clarity Clear (Clear) Urine pH 7.0 (5.0-9.0) Urine Specific Ecru 1.014 (1.001-1.035) Urine Protein 3+ (Negative) Urine Ketones Negative (Negative) Urine Blood Trace /uL (Negative) Urine Nitrite Negative (Negative) Urine Bilirubin Negative (Negative) Urine Urobilinogen Normal mg/dL (Negative) Urine Leukocyte Esterase 1+ /uL (Negative) Urine RBC 2 /hpf (0 - 4) Urine Microscopic WBC 24 /HPF (0-5) Urine Squamous Epithelial Cells Few /hpf (<5) Urine Bacteria Few /hpf (None Seen) Urine Glucose 4+ mg/dL (Normal) Urine Opiates Screen Neg (NEGATIVE) Urine Fentanyl Screen Neg (NEGATIVE) Urine Barbiturates Screen Neg (NEGATIVE) Urine Phencyclidine Screen Neg (NEGATIVE) Urine Amphetamines Screen Pos (NEGATIVE) Urine Benzodiazepines Screen Neg (NEGATIVE) Urine Cocaine Screen Neg (NEGATIVE) Urine Cannabinoids Screen Neg (NEGATIVE) Total Bilirubin 0.2 mg/dL (0.2-1.0) Aspartate Amino Transferase (AST) 9 U/L (13-40) Alanine Aminotransferase (ALT) < 9 U/L (7-40) Alkaline Phosphatase 95 U/L (46-116) B-Type Natriuretic Peptide 65.77 pg/mL (0-100) Total Protein 5.7 g/dL (5.7-8.2) Albumin 3.5 g/dL (3.2-4.8) Triglycerides Level 309 mg/dL (< 150) Cholesterol Level 147 mg/dL (< 200) LDL Cholesterol 75 mg/dL (< 100) HDL Cholesterol 38 mg/dL (40-59) Other Laboratory Tests 05/14/25 05:20 Brief Hx & Hospital Course: The patient is a 49-year-old female with prior medical history of type 2 diabetes mellitus, hypertension, CHF, CKD, gastritis, dyslipidemia, and peripheral neuropathy, who presented to the ED with chief complaint of abdominal pain. She refers 2 days ago she onset of epigastric abdominal pain, described as burning and achy, intensity 10/10, nonradiating, associated with nausea, chills, and reflux. She states that the night before presenting to the ED, she had two bright red bloody bowel movements. Upon persistence of symptoms, patient sought medical attention. She denied vomiting, fever, shortness of breath, chest pain, and palpitations. On evaluation in the ED, she was in mild distress and hypertensive. Initial labs are significant for Hb 10.3, HCT 30.1, sodium 134, creatinine 2.36, BUN 29, and glucose 273. UDS is positive for amphetamines. UA significant for possible UTI. Abdominal/pelvis CT unchanged moderate nonspecific bilateral perinephric stranding, and a 4 cm cyst within the cervix felt to represent a large Nabothian cyst. Patient was admitted for further work up and monitoring. evaluation after admission, the patient continued to refer epigastric abdominal pain with intensity of 7 in 10 and some lower back pain. She was taken to EGD which showed a 0.5 cm sliding-type hiatal hernia was slightly irregular, cellular junction no significant erosive esophagitis, mild gastritis otherwise normal examination up to 2nd and 3rd part of the duodenum. She tolerated the procedure well and was subsequently recommended to be placed on Protonix mg p.o. daily and follow up with GI outpatient. Due to lower extremity swelling, D-dimer and duplex ultrasound were ordered. A lower extremity duplex ultrasound ruled out presence of DVT. D-dimer was 1.53. A V/Q scan was ordered to rule out a PE, which showed low probability of PE. She was started on ceftriaxone for the UTI, however initiation of treatment she generalized pruritus. Antibiotics were switched to Levaquin, however she stated similar reaction to this. Cultures grew >79532 CFU/mL including Group B Strep. Was started on Zosyn, which she tolerated. Throughout her inpatient stay her blood glucose levels were extremely elevated. Insulin regimen had to be adjusted on multiple occasions. A formal diabetes education session was held for the patient in order to ensure proper education in terms of dietary and lifestyle modifications needed in order to optimize glycemic control. Patient has progressed favorably. On evaluation today, the patient says she felt well, minor abdominal pain but was controlled, and denied presence of fever, nausea, vomiting, chest pain, palpitation, and other symptoms. Vitals were stable. Follow up labs were stable, blood glucose levels were in control. She is considered stable for discharge home with p.o. antibiotics to complete antibiotic treatment. She will follow up outpatient with Dr. Hauser for results of biopsies taken during EGD. All recommendations regarding glycemic control and lifestyle modifications were reiterated and thoroughly explained to the patient. All medications were thoroughly explained to the patient. It was explained to the patient has a guardian should be started after clearance of current UTI. She states she understands and agrees. Past medical history: type 2 diabetes mellitus, hypertension, CHF, CKD, gastritis, dyslipidemia, and peripheral neuropathy Allergies: Codeine Past Surgical History: Appendectomy, Cholecystectomy, Social History: Patient denies drug use (UDS + amphetamines), refers she smokes 1 cigarette a day down from 1 pack a day, refers she used to drink approximately 1 bottle of vodka or Tequila a day for 4 years but quit 3 months ago. States she lives with her and daughter and feels safe. General: Patient seems uncomfortable, alert and oriented in person place and time. Patient following commands. HEENT: Normocephalic, atraumatic, normal reactive pupils, EOM intact, pink conjunctiva, pink moist mucous membrane Respiratory/pulmonary: Bilateral chest expansion, clear lungs bilaterally, vesicular murmurs present in almost all lung beckham, no associated crackles or wheezes. Cardiovascular: normal RRR, normal S1 and S2 Abdomen: Obese, presence of flat and hypochromic scar on right upper quadrant due to cholecystectomy, presence of flat hypochromic scar in right lower quadrant due to appendectomy, abdomen nondistended, normal bowel sounds, soft, no pain to palpation of abdominal quadrants, no palpable masses. CASH: No evidence of external hemorrhoids, no bright red blood on glove Extremities: no deformities, there is no peripheral edema present at the lower extremities, pulses are palpable Skin: No rashes or pruritus, there is no sacral edema present at this time. Neurological: Intact cranial nerves with no focal neurologic deficits, decreased sensation in all toes Case discussed with Dr. Norris Goals of care discussed with the patient for over 24 minutes. Consults/Reason for consult GI was consulted due to suspicion of GI bleed. EGD was performed. Condition at Discharge: Stable Final Diagnosis/Problems List Acute abdominal pain likely due to gastritis PUD ruled out Possible Upper GI bleed Possible acute complicated UTI ERIK on CKD 4, likely due to VMN Normocytic anemia, likely due to chronic disease secondary to above DVT ruled out Hypertension Type 2 diabetes mellitus, HB 1 AC: 12.9% (March 2025) Hyponatremia, resolved Chronic diastolic heart failure, not exacerbated Hyperlipidemia Obesity, BMI 33.0 kg/m2 Nabothian Cyst Tobacco use Amphetamine use History of alcohol abuse Discharge Disposition: Home Discharge Instruct/Medications Diet: Consistent carbohydrate Activity: No Restrictions, As Tolerated Follow Up/Referral: pls follow up in [place] [facility] Medications: Albuterol 90 mcg t.i.d. 5 days Amlodipine 1 tablet p.o. daily Aspirin 1 tablet p.o. daily next Lipitor 1 tab p.o. daily Carvedilol 1 tablet p.o. b.i.d. Cephalexin 1 capsule p.o. q.i.d. 5 days Jardiance 1 tablet p.o. daily after of UTI Furosemide 1 tab p.o. daily Gabapentin 400 mg p.o. b.i.d. Glipizide 10 mg p.o. b.i.d. Lantus 24 units q.a.m. Lispro 10 units subcutaneous t.i.d. Metformin 500 mg p.o. b.i.d. Spironolactone 1 tab p.o. daily Protonix 1 tab p.o. daily Scheduled Albuterol Sulfate (Ventolin Mdi), 90 MCG IN TID Amlodipine Besylate (Amlodipine Besylate), 1 TAB PO DAILY, (Reported) Aspirin (Aspirin Low Dose), 1 TAB PO DAILY, (Reported) Atorvastatin Calcium (Lipitor), 1 TAB PO DAILY, (Reported) Carvedilol (Carvedilol), 1 TAB PO BID Cephalexin (Keflex Capsule), 1 CAP PO QID Empagliflozin (Jardiance), 1 TAB PO DAILY, (Reported) Ferrous Sulfate (Ferrous Sulfate), 325 MG PO DAILY Furosemide (Furosemide), 1 TAB PO DAILY, (Reported) Gabapentin (Gabapentin), 400 MG PO BID, (Reported) Glipizide (Glipizide), 10 MG PO BID, (Reported) Insulin Glargine (Lantus Solostar), 24 UNIT SC QAM Insulin Lispro (Humalog Kwikpen), 10 UNIT SC TID Metformin Hydrochloride (Metformin Hcl), 500 MG PO IBID, (Reported) Metoclopramide Hcl (Metoclopramide Hcl), 1 TAB PO TID, (Reported) Pantoprazole Sodium Sesquihydr (Protonix), 1 TAB PO DAILY, (Reported) Spironolactone (Spironolactone), 1 TAB PO DAILY, (Reported) Discontinued Medications Amoxicillin & Pot Clavulanate (Augmentin Tablet), 875 MG PO BID Discharge Statement: "Patient was advised to return to the ER or call 911 if any headaches, dizziness, shortness of breath, chest pain, abdominal pain, bleeding, fevers, or worsening of medical condition. Patient was counseled about treatment plan, medications, possible side effects, patientverbalized understanding. All questions were answered to the best of my ability. This discharge took greater then 30 minutes in planning, reviewing documentation, counseling the patient, and discussing with other team members." ASSESSMENT ASSESSMENT Assessment Acute abdominal pain likely due to gastritis - Soft mechanical diet , advance as tolerated - Protonix 40 mg PO daily - Sucralfate 1 g t.i.d. p.o. - NS IV once - Morphine 1 g IV q6H PRN - Acetaminophen 650 mg PO q6hr PRN PUD ruled out Possible Upper GI bleed -EGD: 0.5 cm sliding-type hiatal hernia with slightly irregular squamocolumnar junction no significant erosive esophagitis. Mild gastritis otherwise normal examination up to 2nd and 3rd part of the duodenum. -GI: Await for biopsy results, we will place patient on Protonix 40 mg p.o. daily, resume GI soft diet advanced as tolerated, outpatient follow-up with GI to discuss above results and schedule elective screening colonoscopy. -Stool occult blood pending Possible acute complicated UTI -Ceftriaxone 1g IV daily, discontinued -Levaquin IV, stopped -Augmentin 500 BID PO, discontinued -Zosyn IV q8 hours -Blood cultures: Preliminary: No growth after 72 hours of incubation -Urine culture: 80,000 CFU/mL Mixed gram positive parminder including beta hemolytic group b Strep. ERIK on CKD 4, likely due to VMN Normocytic anemia, likely due to chronic disease secondary to above -Monitor H&H DVT ruled out -Duplex US: nonographic evidence for deep venous thrombosis in the right lower extremity veins Hypertension -Carvedilol 6.25 mg PO BID -Amlodipine 10 mg PO daily Type 2 Diabetes Mellitus with hyperglycemia, HbA1c: 12.9 (04/17/2025) - Lantus 45units SC b.i.d. - Jardiance 10 mg PO daily, discontinue - Moderate sliding scale - Accu-Cheks - Carbohydrate consistent diet Hyponatremia, resolved Chronic diastolic heart failure, not exacerbated -Echo 04/07/2024: with concentric left ventricular hypertrophy, normal left ventricular size and dimension, normal left ventricular systolic function estimated ejection fraction 60%. There is grade 1 diastolic dysfunction. Hyperlipidemia - Atorvastatin 40 mg PO HS Obesity, BMI 33.0 kg/m2 Nabothian Cyst -Abdominal/pelvic CT: 4 cm cyst within the cervix felt to represent a large Nabothian cyst Tobacco use - Patient was counseled on the importance of tobacco cessation for over 12 minutes, she was offered nicotine patches but refused Amphetamine use - patient was counseled on the importance of cessation of amphetamines for over 12 minutes. History of alcohol abuse Date of Service: May 14, 2025 Billing Provider: ZULY NORRIS MD Common Visit Codes: 94208-WMP/OBS DISCH DAY >30min GARY MOROCHO RESIDENT May 14, 2025 15:43 ZULY NORRIS MD May 14, 2025 19:25
--- NOTE | 2025-05-14 16:00 | DVHPN2 ---
Progress Note - Dictate Date Seen: May 14, 2025 (Late entryTime of visit 1:00 p.m.) Medical Necessity Reason Pt with a Central, PICC or Fol: No Subjective Patient is a AOx4, she refers the pain has resolved Patient is tolerating diet Patient's hyperglycemia is improving V/Q scan low probability of PE EGD findings discussed with patient, minimal gastritis No further GI bleeding vital signs Vital Sign Date Time Temp Pulse Resp B/P (MAP) Pulse Ox O2 Delivery O2 Flow Rate FiO2 05/14/25 13:25 98.2 73 18 164/62 (96) 98 98.2 05/14/25 07:30 Room Air* 0 21 Total Intake and Output 05/13/25 05/13/25 05/14/25 15:00 23:00 07:00 Intake Total 820 ml 600 ml Balance 820 ml 600 ml objective General Appearance: Alert, Oriented X3, Cooperative, no distress HEENT: Atraumatic, PERRLA, EOMI, Mucous membr. moist/pink Respiratory: Clear to auscultation, Normal air movement Cardiovascular: Regular rate, Normal S1, Normal S2, No murmurs Abdominal: Normal bowel sounds, Soft, No masses, Other (Tenderness to palpation in the periumbilical and epigastric area) Extremities: No clubbing, No cyanosis, No edema, Normal pulses, No tenderness/swelling Skin: No rashes, No breakdown, No significant lesion Neuro: Normal gait, Normal speech, Strength at 5/5 X4 ext, Normal tone, Sensation intact, Cranial nerves 3-12 NL, Reflexes 2+ Psych/Mental Status: Mental status NL, Mood NL laboratory and microbiology Laboratory Tests 05/14/25 05:20 Test 05/14/25 05:20 Range/Units Serum Glucose 165 H 74-106 mg/dL Problems(with codes): (1) Diabetes mellitus with hyperglycemia (2) Abdominal pain, acute, epigastric (3) Upper GI bleed (4) Urinary tract infection Prognosis Plan Discharge planning is in progress Patient appears to be stable from Gi poinht of view Continue PPI Is on oral antibiotics for UTI Outpatient follow up with GI Services for elective colonoscopy Diabetes education to teach the patient important lifestyle modifications needed in order to optimize diabetes control. Plan discussed with: Patient ELEUTERIO JUAREZ MD May 14, 2025 16:00
== END 2025-05-14 14:15 | disposition home or self-care (01) | DRG 241 ==
LOC: EDBD 16:34 → ER 16:34 → OVERFLOW 22:20 → EAST 05-10 01:20
PROVIDERS: ADMIT Internal Medicine Geriatric Medicine; ATTEND Emergency Medicine
PROC: 0DB68ZX Excision of Stomach, Via Natural or Artificial Opening Endoscopic, Diagnostic (ICD-10-PCS; 2025-05-10)
PROC: 0DB98ZX Excision of Duodenum, Via Natural or Artificial Opening Endoscopic, Diagnostic (ICD-10-PCS; principal; 2025-05-10 14:36)
DX: K29.71 Gastritis, unspecified, with bleeding (principal); N17.0 Acute kidney failure with tubular necrosis; I50.32 Chronic diastolic (congestive) heart failure; I13.0 Hypertensive heart and chronic kidney disease with heart failure and stage 1 through stage 4 chronic kidney disease, or unspecified chronic kidney disease; E87.1 Hypo-osmolality and hyponatremia; N12 Tubulo-interstitial nephritis, not specified as acute or chronic; D63.1 Anemia in chronic kidney disease; E11.22 Type 2 diabetes mellitus with diabetic chronic kidney disease; E11.42 Type 2 diabetes mellitus with diabetic polyneuropathy; E11.65 Type 2 diabetes mellitus with hyperglycemia; K44.9 Diaphragmatic hernia without obstruction or gangrene; E78.5 Hyperlipidemia, unspecified; E66.9 Obesity, unspecified; N88.8 Other specified noninflammatory disorders of cervix uteri; F17.210 Nicotine dependence, cigarettes, uncomplicated; N18.4 Chronic kidney disease, stage 4 (severe); F19.90 Other psychoactive substance use, unspecified, uncomplicated; F15.90 Other stimulant use, unspecified, uncomplicated; Z68.33 Body mass index [BMI] 33.0-33.9, adult; Z88.1 Allergy status to other antibiotic agents; Z88.5 Allergy status to narcotic agent; Z90.49 Acquired absence of other specified parts of digestive tract; Z87.442 Personal history of urinary calculi; I25.2 Old myocardial infarction; Z82.49 Family history of ischemic heart disease and other diseases of the circulatory system; Z83.3 Family history of diabetes mellitus; Z82.3 Family history of stroke; Z80.42 Family history of malignant neoplasm of prostate; Z81.1 Family history of alcohol abuse and dependence; Z71.6 Tobacco abuse counseling; Z79.2 Long term (current) use of antibiotics; Z79.899 Other long term (current) drug therapy; Z79.4 Long term (current) use of insulin; Z79.84 Long term (current) use of oral hypoglycemic drugs; Z79.82 Long term (current) use of aspirin; Z79.02 Long term (current) use of antithrombotics/antiplatelets
CPT/HCPCS: 36415; 71045; 74176; 78582; 80048; 80053; 80061; 80307; 81001; 82270; 82306; 82962; 83605; 83690; 83880; 83970; 84100; 84702; 85025; 85379; 87040; 87081; 87086; 93005; 93971; G0378; J1100; J1815; J1956; J2250; J2470; J2543; J2704

== ENCOUNTER 2025-08-09 16:18 | Inpatient (IN) | payer MEDICAID ==
[~2025-08-09] VITALS: Ht 154.9 cm; Wt 84.4 kg
[~2025-08-09 16:18] MED LIST changes: -AUG875T PO; +CEPH250C PO
[2025-08-09] MEDS: HYDROcodone-ACET 5/325MG TAB PO ONE (17:49)
[2025-08-09] MEDS: NITROGLYCERIN 0.4 MG SL TAB SL ONE (19:35)
[2025-08-09 19:40] LABS: Hematocrit 31.4 % (36.0-46.0); Hemoglobin 10.1 g/dL (12.2-16.2); Mean Corpuscular Hemoglobin 29.1 pg (28.0-32.0); Mean Corpuscular Volume 90.0 fL (80.0-100.0); Nucleated Red Blood Cells % 0.1 %
--- NOTE | 2025-08-09 19:43 | DVH ---
CHEST RADIOGRAPH REASON FOR EXAM: HTN COMPARISON: XY CHEST XRAY 1 VIEW on DOS: 05/11/25, XY CHEST PORTABLE on DOS: 12/14/24, XY CHEST PORTABLE on DOS: 12/11/24, XY CHEST XRAY 1 VIEW on DOS: 10/23/24, XY CHEST XRAY 1 VIEW on DOS: 09/06/24 TECHNIQUE: One view of the chest is provided FINDINGS: The cardiomediastinal silhouette is within normal limits for technique. There is no focal airspace disease. There is no significant pleural effusion. No acute bony abnormality is identified. IMPRESSION: No radiographic evidence of acute cardiopulmonary process.
[2025-08-09 19:53] LABS: Alanine Aminotransferase 11 U/L (7-40); Albumin 3.2 g/dL (3.2-4.8); Anion Gap 7 (5-15); BUN/Creatinine Ratio 8.4 (10.0-20.0); Blood Urea Nitrogen 21 mg/dL (9-23); Carbon Dioxide 21 mmol/L (20-31); Potassium 4.6 mmol/L (3.5-5.1); Sodium 138 mmol/L (136-145)
[2025-08-09 19:55] LABS: Alkaline Phosphatase 139 U/L (46-116); Bilirubin, Total < 0.2 mg/dL (0.2-1.0); Calcium 8.3 mg/dL (8.7-10.4); Chloride 110 mmol/L (98-107); Glucose 261 mg/dL (74-106); Total Protein 5.6 g/dL (5.7-8.2)
--- NOTE | 2025-08-09 21:21 | ED.PDOC ---
HPI Comments HPI: 49-year-old female who came to ER for insect bite. Patient had an insect/spider bite at her left neck 2 nights ago, and since then it has been giving her intense pain. She does have history of hypertension, diabetes, dyslipidemia, CHF, CKF but has been off her medications for 4 days since it got stolen. Upon arrival blood pressure was 201/101 mmHg, blood sugar of 192 Past Medical History: Hypertension, diabetes, dyslipidemia, CHF, CKD Past Surgical History: Denies Social History: Denies Medications: Metformin, aspirin, lisinopril, Norvasc, Lipitor, metoprolol, Lasix, Protonix, Reglan Allergies: Codeine HPI: Poor Historian. Past Medical History: Past Surgical History: REVIEW OF SYSTEMS: CONSTITUTIONAL: Denies acute: fever, diaphoresis, chills, HEAD: Denies acute: photophobia Eyes: Denies acute: Double vision, vision loss, eye pain, eye discharge. EARS: Denies acute: tinnitus, hearing loss, ear discharge, ear pain, THROAT: Denies acute: sore throat, swelling, difficulty swallowing , pain with swallowing, change in voice. NECK: Denies acute: stiff neck. HEART: Denies acute : chest pain, palpitations, LUNGS: Denies acute: SOB, wheezing, cough, hemoptysis ABDOMEN: Denies acute: abdominal pain, Nausea, Vomiting, diarrhea, melena , hematemesis, hematochezia SKIN: Denies acute: rash, redness, lesions, itchiness. EXTREMITIES: Denies acute: calf pain, numbness, tingling, weakness, denies pain in extremity. Denies acute: Low back pain. Neuro: Denies acute: focal neurological deficit, motor or sensory focal neurological deficit, tremors, seizure like activity, confusion, dizziness, change in mental status, loss of bowel or bladder function, cauda equina like symptoms. : Denies acute: dysuria, hematuria, flank pain, increase in urinary frequency. PSYCH: Denies acute: hallucination, suicidal ideation, homicidal ideation. FEMALE: Denies acute: abnormal vaginal bleeding, foul odor, unusual discharge. PHYSICAL EXAM: General: ---mild-----acute distress, awake and alert. Head: normocephalic, atraumatic. No raccoon's eyes, no cm sign. Neck: supple, trachea is midline, no swelling. Noted left neck mass with the associated erythema and protrusion possible abscess versus mass. Throat: Normal phonation. Eyes:, no erythema, no purulent discharge, no proptosis, no icterus. Heart: regular rate, regular rhythm, no significant murmur appreciated. Lungs: no apparent respiratory distress, Able to speak in full sentences. No wheezing, no rhonchi, no crackles. No stridors Clear to auscultation bilaterally. Abdomen: non tender to palpation, non distended, soft, no guarding, no rebound, + bowel sounds. Neuro: Awake, Alert, oriented to name, self, situation, follows commands GCS=15. Speech is normal. Skin: no petechia, no purpura, no cyanosis, non-pale, not jaundice. Lower extremities: --trace bilateral - Pitting edema no deformity, no focal swelling, no calf TTP. Makes eye contact. moves all four extremities. Face: no apparent facial droop. Ambulating in the ED independently. No nuchal rigidity, Kernig's sign, Brudzinski's sign, no meningeal signs. ED COURSE: DISCLAIMER: This medical document was created using an electronic medical record system with voice recognition software and computerized dictation system. Although this document has been carefully reviewed, there might still be some phonetic and typographical errors. Occasional wrong-word or "sound-alike" substitutions may have occurred due to the inherent limitations of voice recognition software. These areas are purely typographical due to imperfections of the software programs and do not reflect any compromise in the patient's medical care. Please read the chart carefully and recognize, using context, where these substitutions have occurred. Chief Complaint: Insect Bite Time Seen by MD: 21:20 Primary Care Provider: unknown Reviewed Notes: Nurses Notes, Allergies Allergies: Coded Allergies: Ceftriaxone (Verified Allergy, Mild, 05/12/25) ITCHING AND HIVES Levofloxacin (Verified Allergy, Mild, 05/12/25) ITCHING AND HIVES Codeine (Verified Allergy, Unknown, 03/20/19) Home Meds Active Scripts Naloxone HCl (Narcan) 4 Mg/0.1 Ml Spr, 4 MG NA SOURCING COORDINATOR, #2 SPRAY Prov:LUAN OSMAN MD 08/15/25 Hydrocodone-Acetaminophen (Hydrocodone Bitartrate/AC 5-325 mg) 1 Tab Tab, 1 TAB PO Q8HP PRN, #10 TAB Prov:LUAN OSMAN MD 08/15/25 Amoxicillin & Pot Clavulanate (Amoxicillin/Potassium Cla) 500 Mg Tab, 1 TAB PO BID, #14 TAB Prov:LUAN OSMAN MD 08/15/25 Carvedilol (Carvedilol) 6.25 Mg Tab, 1 TAB PO BID for 30 Days, #60 TAB 1 Refill Prov:LUAN OSMAN MD 08/15/25 Albuterol Sulfate (VENTOLIN MDI) 90 Mcg Ih, 90 MCG IN TID PRN, #1 INH Prov:LUAN OSMAN MD 08/15/25 Spironolactone (Spironolactone) 25 Mg Tab, 1 TAB PO DAILY for 30 Days, #30 TAB Prov:LUAN OSMAN MD 08/15/25 Amlodipine Besylate (Amlodipine Besylate) 10 Mg Tab, 1 TAB PO DAILY for 90 Days, #90 TAB Prov:LUAN OSMAN MD 08/15/25 Empagliflozin (Jardiance) 10 Mg Tab, 1 TAB PO DAILY for 90 Days, #90 TAB Prov:LUAN OSMAN MD 08/15/25 Atorvastatin Calcium (Lipitor) 40 Mg Tab, 1 TAB PO DAILY for 90 Days, #90 TAB Prov:LUAN OSMAN MD 08/15/25 Aspirin (Aspirin Low Dose) 81 Mg Chw, 1 TAB PO DAILY for 90 Days, #90 TAB.CHEW Prov:LUAN OSMAN MD 08/15/25 Insulin Lispro (Humalog Kwikpen) 100 Unit/Ml Inj, 10 UNIT SC TID for 30 Days, #9 INJ Please take 8 units before each meal 3 times aday. Prov:DERIK AVINA 04/19/25 Insulin Glargine (Lantus Solostar) 100 Unit/Ml Inj, 24 UNIT SC QAM for 30 Days, #9 INJ Please take 24 unit Lantus at QAM daily. Prov:DERIK AVINA 04/19/25 Ferrous Sulfate (Ferrous Sulfate) 325 Mg Tab, 325 MG PO DAILY for 30 Days, #30 TAB 2 Refills Prov:HIRALANDREA GIBBS RESIDENT 04/07/24 Reported Medications Pantoprazole Sodium Sesquihydr (Protonix) 40 Mg Tab, 1 TAB PO DAILY for 90 Days, #90 09/04/24 Metoclopramide Hcl (Metoclopramide Hcl) 5 Mg Tab, 1 TAB PO TID for 90 Days, #270 09/04/24 Gabapentin (Gabapentin) 100 Mg Cap, 400 MG PO BID for 90 Days, #180 09/04/24 Furosemide (Furosemide) 40 Mg Tab, 1 TAB PO DAILY for 90 Days, #90 09/04/24 Discontinued Reported Medications Glipizide (Glipizide) 10 Mg Tab, 10 MG PO BID for 30 Days, MG 02/05/25 Metformin Hydrochloride (Metformin Hcl) 500 Mg Tab, 500 MG PO IBID for 30 Days, MG 02/05/25 Discontinued Scripts Cephalexin (KEFLEX CAPSULE) 250 Mg Cp, 1 CAP PO QID for 5 Days, #28 CAP Prov:ALEXI GARCIA RESIDENT 05/14/25 Information Source: Patient Mode of Arrival: Ambulatory Past Medical History PAST MEDICAL HISTORY: CHF, CKF, DM, HTN, Kidney Stones, NM Surgical History: Appendectomy, Cholecystectomy, TRANSITIONS MANAGER RN History: No Pertinent TRANSITIONS MANAGER RN History Family History Family History: Unknown Social History Smoker: Cigarettes, Less Than 1 Pack/Day Alcohol: Heavy Drugs: Marijuana Lives In: Home Was a procedure done? Was a procedure done?: No CP Differential Dx Differential Diagnosis: N/A Differential Diagnosis: HTN Essential, HTN Accelerated, Other (DDX include yolanda l disease, thyroid disease, electrolyte abnormality, increased salt intake, medications non-compliance, undiagnosed HTN, Hypertensive crisis, hypertensive urgency., drug toxicity.) X-Ray, Labs, Meds, VS Vital Signs Date Time Temp Pulse Resp B/P (MAP) Pulse Ox O2 Delivery O2 Flow Rate FiO2 08/09/25 21:45 160/55 08/09/25 21:38 202/95 (130) 08/09/25 21:15 158/76 (103) 08/09/25 19:35 208/96 08/09/25 19:09 98.2 80 18 201/101 (134) 98 98.2 08/09/25 16:29 98.2 77 18 234/85 98 98.2 Lab Test 08/09/25 21:56 08/09/25 20:19 08/09/25 19:28 08/09/25 16:26 Range/Units Lactic Acid Level 0.7 0.4-2.0 mmol/L Troponin I High Sensitivity 11 10 9 </=34 ng/L White Blood Count 10.7 4.4-10.8 10^3/uL Red Blood Count 3.49 L 4.0-5.20 10^6/uL Hemoglobin 10.1 L 12.2-16.2 g/dL Hematocrit 31.4 L 36.0-46.0 % Mean Corpuscular Volume 90.0 80.0-100.0 fL Mean Corpuscular Hemoglobin 29.1 28.0-32.0 pg Mean Corpuscular Hemoglobin Concent 32.3 32.0-36.0 g/dL Red Cell Distribution Width 16.0 H 11.8-14.3 % Platelet Count 453 H 140-450 10^3/uL Mean Platelet Volume 8.7 6.9-10.8 fL Neutrophils (%) (Auto) 66.4 37.0-80.0 % Lymphocytes (%) (Auto) 23.8 10.0-50.0 % Monocytes (%) (Auto) 5.4 0.0-12.0 % Eosinophils (%) (Auto) 2.7 0.0-7.0 % Basophils (%) (Auto) 1.7 0.0-2.0 % Neutrophils # (Auto) 7.1 1.6-8.6 10 ^3/uL Lymphocytes # (Auto) 2.6 0.4-5.4 10 ^3/uL Monocytes # (Auto) 0.6 0-1.3 10 ^3/uL Eosinophils # (Auto) 0.3 0-0.8 10 ^3/uL Basophils # (Auto) 0.2 0-0.2 10 ^3/uL Nucleated Red Blood Cells 0.1 % Sodium Level 138 136-145 mmol/L Potassium Level 4.6 3.5-5.1 mmol/L Chloride Level 110 H 98-107 mmol/L Carbon Dioxide Level 21 20-31 mmol/L Anion Gap 7 5-15 Blood Urea Nitrogen 21 9-23 mg/dL Creatinine 2.51 H 0.550-1.02 mg/dL Glomerular Filtration Rate Calc 23 >90 mL/min BUN/Creatinine Ratio 8.4 L 10.0-20.0 Serum Glucose 261 H 74-106 mg/dL Calcium Level 8.3 L 8.7-10.4 mg/dL Total Bilirubin < 0.2 L 0.2-1.0 mg/dL Aspartate Amino Transferase (AST) 12 L 13-40 U/L Alanine Aminotransferase (ALT) 11 7-40 U/L Alkaline Phosphatase 139 H 46-116 U/L C-Reactive Protein High Sensitivity 1.06 H <1.0 mg/dL B-Type Natriuretic Peptide 121.50 0-100 pg/mL Total Protein 5.6 L 5.7-8.2 g/dL Albumin 3.2 3.2-4.8 g/dL POC Glucose 192 H 70-106 mg/dl Microbiology Date/Time Source Procedure Growth Status 08/09/25 22:02 Blood Blood Culture - Final NO GROWTH AFTER 5 DAYS OF INCUBATION. Complete 08/09/25 21:56 Blood Blood Culture - Final NO GROWTH AFTER 5 DAYS OF INCUBATION. [place] [id number] Ph: [phone] DIAGNOSTIC IMAGING Diagnostic Imaging Report : [id number] Signed PATIENT: NIYA GAMEZ ACCT: [id number] UNIT: [id number] : 1975 LOC: ER ROOM / BED: / AGE / SEX: 49 / F ADM STATUS: REG ER SERVICE 34 ORDERING PHYSICIAN: SHANEKA HEART DO PROCEDURE(s): HWOCT - HEAD WITHOUT CONTRAST REASON: htn ORDER NUMBER(s): [id number], ACCESSION NUMBER(s): [id number] CT HEAD WITHOUT CONTRAST INDICATION: htn COMPARISON: CT HEAD WITHOUT CONTRAST on DOS: 04/16/25 TECHNIQUE: CT of the head without intravenous contrast. RADIATION DOSE: CTDIvol: 54 mGy, DLP: 957 mGy*cm FINDINGS: There is no evidence of acute intracranial hemorrhage, extra-axial collection, mass effect, midline shift, herniation or hydrocephalus. The ventricles, sulci and cisterns are age appropriate. The mayes-white differentiation is intact. The visualized paranasal sinuses and mastoid air cells are clear. The surr ounding soft tissues and osseous structures are unremarkable. IMPRESSION: 1. No evidence of acute intracranial hemorrhage, mass effect or hydrocephalus. ATED BY: BALDO WHARTON MD DICTATED DATE/TIME: 08/09/252213 SIGNED BY: BALDO WHARTON MD SIGNED DATE/TIME: 08/09/252213 CC: [place] [address] Ph: [phone] DIAGNOSTIC IMAGING Diagnostic Imaging Report : [id number] Signed PATIENT: NIYA GAMEZ ACCT: [id number] UNIT: [id number] : 1975 LOC: ER ROOM / BED: / AGE / SEX: 49 / F ADM STATUS: REG ER SERVICE 30 ORDERING PHYSICIAN: SHANEKA HEART DO PROCEDURE(s): NKICT - NECK WITHOUT CONTRAST REASON: L NECK MASS ORDER NUMBER(s): [id number], ACCESSION NUMBER(s): [id number] Accession Number: [id number] Clinical History: L NECK MASS Comparison: MSL on DOS: 02/08/22 Technique: Multi-slice CT scan of the neck was performed without intravenous contrast. Radiation Dose Information: CT Dose: CTDI volume is 21.37 mGy. Dose-length product is 498.2 mGy*cm Findings: There is a 2.0 x 1.1 cm region of soft tissue thickening about the left lateral superficial neck with underlying adjacent stranding and borderline nodes. The nasopharynx, oropharynx, hypopharynx, esophagus, and larynx demonstrate normal patency and contour. The parotid, submandibular, and thyroid glands are unremarkable. The lung apices are unremarkable. The orbits are unremarkable. Visualized intracranial components are clear. There is mild mucosal thickening within the left maxillary antrum. Impression: 1. Soft tissue thickening about the left lateral neck with underlying adjacent stranding and borderline nodes. Findings may be referable to an infectious/inflammatory process. A posttreatment follow-up is suggested to ensure appropriate resolution. ATED BY: SERGO KAM MD DICTATED DATE/TIME: 08/09/252220 SIGNED BY: SERGO KAM MD SIGNED DATE/TIME: 08/09/252220 CC: [place] [address] Ph: [phone] DIAGNOSTIC IMAGING Diagnostic Imaging Report : [id number] Signed PATIENT: NIYA GAMEZ ACCT: [id number] UNIT: [id number] : 1975 LOC: ER ROOM / BED: / AGE / SEX: 49 / F ADM STATUS: REG ER SERVICE 10 ORDERING PHYSICIAN: SHANEKA HEART DO PROCEDURE(s): CXRP - CHEST PORTABLE REASON: HTN ORDER NUMBER(s): [id number], ACCESSION NUMBER(s): [id number] CHEST RADIOGRAPH REASON FOR EXAM: HTN COMPARISON: XY CHEST XRAY 1 VIEW on DOS: 05/11/25, XY CHEST PORTABLE on DOS: 12/14/24, XY CHEST PORTABLE on DOS: 12/11/24, XY CHEST XRAY 1 VIEW on DOS: 10/23/24, XY CHEST XRAY 1 VIEW on DOS: 09/06/24 TECHNIQUE: One view of the chest is provided FINDINGS: The cardiomediastinal silhouette is within normal limits for technique. There is no focal airspace disease. There is no significant pleural effusion. No acute bony abnormality is identified. IMPRESSION: No radiographic evidence of acute cardiopulmonary process. ATED BY: CHICO MOON MD DICTATED DATE/TIME: 08/09/251939 SIGNED BY: CHICO MOON MD SIGNED DATE/TIME: 08/09/251939 CC: Time of 1ST Reevaluation: 21:16 Reevaluation 1ST: Unchanged Patient Education/Counseling: Diagnosis, Treatment Family Education/Counseling: No Family Present Comments MDM: patient presented with the above HPI.---neck abscess/mass/hypertensive crisis---workup was initiated. patient was found with the above mentioned diagnosis. the following medications were ordered: please refer to order lists of meds and tests obtained by myself Dr. Heart. Patient ED course and VS have been stabilized. Patient has been reassessed in the ED and remained in a stable condition. Pertinent incidental findings were discussed with the patient and/or family. Patient/family voices understanding and is agreeable with plan. Patient has been observed in the ED adequate length of time to insure improvement/stability. Escalation of care considered: Consideration of escalation to observation or admission Patient was given vancomycin given her possible abscess in the neck. For blood pressure control patient was given Lasix, labetalol, hydralazine. Patient was ADMITTED to the medicine team for further evaluation and treatment of their presentation. . All the reports of any imaging studies that were ordered by myself were reviewed by myself. SEPSIS Sepsis Screen Date sepsis recognized/suspect: Aug 09, 2025 Time Sepsis recognized/suspect: 1629 Recent Procedure: No On Antibiotic Therapy: No Respiratory Rate >20: No Heart Rate >90: No Temp<36 C (96.8 F) or >38.3 C: No SBP <90 or MAP <65 mmHG: No New Acute Mental Status Change: No Is the patient on CPAP, BIPAP,: No Physician Orders Chapter Relations Administrator (08/09/25 ) Chest Portable (08/09/25 19:11) Electrocardigram (08/09/25 19:11) Neck Without Contrast (08/09/25 21:31) Head Without Contrast (08/09/25 21:35) Vital Signs Date Time Temp Pulse Resp B/P (MAP) Pulse Ox O2 Delivery O2 Flow Rate FiO2 08/09/25 21:45 160/55 08/09/25 21:38 202/95 (130) 08/09/25 21:15 158/76 (103) 08/09/25 19:35 208/96 08/09/25 19:09 98.2 80 18 201/101 (134) 98 98.2 08/09/25 16:29 98.2 77 18 234/85 98 98.2 Laboratory Tests Test 08/09/25 19:28 08/09/25 21:56 White Blood Count 10.7 10^3/uL (4.4-10.8) Lactic Acid Level 0.7 mmol/L (0.4-2.0) Departure 1 Departure Time of Disposition: 21:33 Impression: Primary Impression: Hypertensive urgency Additional Impression: Mass of left side of neck Disposition: ADMITTED INPATIENT Admit to: Tele Condition: Guarded e-Prescriptions Naloxone HCl (Narcan) 4 Mg/0.1 Ml Spr 4 MG NA SOURCING COORDINATOR, #2 SPRAY Prov: OSMAN,LUAN MD 08/15/25 Hydrocodone-Acetaminophen (Hydrocodone Bitartrate/AC 5-325 mg) 1 Tab Tab 1 TAB PO Q8HP PRN, #10 TAB Prov: LUAN OSMAN MD 08/15/25 Amoxicillin & Pot Clavulanate (Amoxicillin/Potassium Cla) 500 Mg Tab 1 TAB PO BID, #14 TAB Prov: LUAN OSMAN MD 08/15/25 Carvedilol (Carvedilol) 6.25 Mg Tab 1 TAB PO BID for 30 Days, #60 TAB 1 Refill Prov: LUAN OSMAN MD 08/15/25 Albuterol Sulfate (VENTOLIN MDI) 90 Mcg Ih 90 MCG IN TID PRN, #1 INH Prov: LUAN OSMAN MD 08/15/25 Spironolactone (Spironolactone) 25 Mg Tab 1 TAB PO DAILY for 30 Days, #30 TAB Prov: LUAN OSMAN MD 08/15/25 Amlodipine Besylate (Amlodipine Besylate) 10 Mg Tab 1 TAB PO DAILY for 90 Days, #90 TAB Prov: LUAN OSMAN MD 08/15/25 Empagliflozin (Jardiance) 10 Mg Tab 1 TAB PO DAILY for 90 Days, #90 TAB Prov: LUAN OSMAN MD 08/15/25 Atorvastatin Calcium (Lipitor) 40 Mg Tab 1 TAB PO DAILY for 90 Days, #90 TAB Prov: LUAN OSMAN MD 08/15/25 Aspirin (Aspirin Low Dose) 81 Mg Chw 1 TAB PO DAILY for 90 Days, #90 TAB.CHEW Prov: LUAN OSMAN MD 08/15/25 Discharged With: Self Critical Care Note Critical Care Time?: Yes (35 min-critical care time only) Heart Score Heart Score: Heart Score Response (Comments) Value History Slightly Suspicious 0 EKG Normal 0 Age <45 0 Risk Factors No known risk factors 0 Troponin Normal limit 0 Total 0 I personally scribed for SHANEKA HEART DO ([email or web address]) on 08/09/25 at 21:20. Electronically submitted by Reggie Easley ([facility]). I personally scribed for SHANEKA HEART DO ([email or web address]) on 08/10/25 at 01:48. Electronically submitted by Reggie Easley ([email or web address]). SHANEKA HEART DO Aug 09, 2025 21:20
[2025-08-09] MEDS ORDERED: VANCOMYCIN PER PHARMACY 0 MG IV SCH (21:30)
[2025-08-09] MEDS: hydrALAZINE HCL 20 MG/ML VL IV ONE (21:45)
[2025-08-09] MEDS ORDERED: LABETALOL HCL 20 MG/4 ML VL IV PRN (21:45)
--- NOTE | 2025-08-09 22:16 | DVH ---
CT HEAD WITHOUT CONTRAST INDICATION: htn COMPARISON: CT HEAD WITHOUT CONTRAST on DOS: 04/16/25 TECHNIQUE: CT of the head without intravenous contrast. RADIATION DOSE: CTDIvol: 54 mGy, DLP: 957 mGy*cm FINDINGS: There is no evidence of acute intracranial hemorrhage, extra-axial collection, mass effect, midline shift, herniation or hydrocephalus. The ventricles, sulci and cisterns are age appropriate. The mayes-white differentiation is intact. The visualized paranasal sinuses and mastoid air cells are clear. The surrounding soft tissues and osseous structures are unremarkable. IMPRESSION: 1. No evidence of acute intracranial hemorrhage, mass effect or hydrocephalus.
--- NOTE | 2025-08-09 22:23 | DVH ---
Accession Number: [id number] Clinical History: L NECK MASS Comparison: MSL on DOS: 02/08/22 Technique: Multi-slice CT scan of the neck was performed without intravenous contrast. Radiation Dose Information: CT Dose: CTDI volume is 21.37 mGy. Dose-length product is 498.2 mGy*cm Findings: There is a 2.0 x 1.1 cm region of soft tissue thickening about the left lateral superficial neck with underlying adjacent stranding and borderline nodes. The nasopharynx, oropharynx, hypopharynx, esophagus, and larynx demonstrate normal patency and contour. The parotid, submandibular, and thyroid glands are unremarkable. The lung apices are unremarkable. The orbits are unremarkable. Visualized intracranial components are clear. There is mild mucosal thickening within the left maxillary antrum. Impression: 1. Soft tissue thickening about the left lateral neck with underlying adjacent stranding and borderline nodes. Findings may be referable to an infectious/inflammatory process. A posttreatment follow-up is suggested to ensure appropriate resolution.
[2025-08-09] MEDS ORDERED: VANCOMYCIN 1.25GM/250ML 250 ML IV ONE (23:00)
[2025-08-09] MEDS ORDERED: ONDANSETRON HCL 4 MG/2 ML VIAL IV PRN (23:00)
[2025-08-09] MEDS ORDERED: DEXTROSE (50%) 50ML SYRG IV PRN (23:00)
[2025-08-09] MEDS ORDERED: NITROGLYCERIN 0.4 MG SL TAB SL PRN (23:00)
--- NOTE | 2025-08-09 23:10 | DVHHP2 ---
History of Present Illness Reason for Visit: Hypertensive urgency History of Present Illness The patient is a 49-year-old female with past medical history chronic kidney disease, CHF, hypertension, DM, kidney stones, CO, and hyperlipidemia who presented to [facility] ED with complaint of insect bites. Patient reports that he had an spider bite at her left neck 2 nights ago, since then it has been giving her intense pain. Patient states that she has been off her medication for 4 days since it got stolen. Patient was seen and evaluated in the ED, laboratory data shows WBC 10.7, hemoglobin 10.1, hematocrit 31.4, platelets 453, sodium 138, potassium 4.6, BUN 21, creatinine 2.51, glucose 261, calcium 8.3, protein 5.6, troponin 10, alkaline phos 139, AST 12, ALT 11, blood pressure 234/85 trending down to 158/78, heart rate 80, temperature 98.2 F, O2 saturation 98% on room air. Neck CT revealing soft tissue thickening over the left lateral neck with underlying adjacent stranding and borderline nodes; findings may be referable to an infectious/inflammatory process. Patient was started on IV antibiotic regimen vancomycin, please see medication orders section in the computer. On my assessment, patient denied chest pain, no headache, dizziness, diaphoresis, shortness of breaths, no diarrhea, nausea, vomiting, fever, no chills. Patient was admitted for further evaluation and medical management. Past Medical History CHF, CKF, DM, HTN, Kidney Stones, CO, HLD Past Surgical History Appendectomy, Cholecystectomy, Family History Reviewed, noncontributory to the management of this case. Past Social History The patient lives at home, smokes cigarettes less than 1 pack per day, drinks alcohol heavily, uses marijuana. Review of Systems Constitutional: Yes: Weakness; No: Fever, Chills, Sweats, Malaise, Other Eyes: No: Pain, Vision change, Conjunctivae inflammation, Eyelid inflammation, Other, Redness ENT: No: Ear pain, Ear discharge, Nose pain, Nose discharge, Nose congestion, Mouth pain, Mouth swelling, Throat pain, Throat swelling, Other Respiratory: No: Cough, Dry, Shortness of breath, SOB with excertion, Wheezing, Hemoptysis, Pleuritic Pain, Sputum, Wheezing, Other Cardiovascular: No: Chest Pain, Palpitations, Orthopnea, Paroxysmal Noc. Dyspnea, Edema, Lt Headedness, Other Gastrointestinal: No: Nausea, Vomiting, Abdominal Pain, Diarrhea, Constipation, Melena, Hematochezia, Other Genitourinary: No Dysuria, No Frequency, No Incontinence, No Hematuria, No Retention, No Other Musculoskeletal: No: other, neck pain, shoulder pain, arm pain, back pain, hand pain, leg pain, foot pain Skin: Lesions (Left neck); No: Rash, Jaundice, Bruising, Other Neurological: No: Weakness, Numbness, Incoordination, Change in speech, Confusion, Seizures, Other Allergies: Coded Allergies: Ceftriaxone (Verified Allergy, Mild, 05/12/25) ITCHING AND HIVES Levofloxacin (Verified Allergy, Mild, 05/12/25) ITCHING AND HIVES Codeine (Verified Allergy, Unknown, 03/20/19) Medications Current Medications Medications Dose Ordered Sig/Mariel Route Start Time Stop Time Status Last Admin Dose Admin Vancomycin HCl 0 ml @ 0 mls/hr UD IV 08/09/25 21:30 UNV Labetalol HCl 5 mg Q2HPRN PRN IV 08/09/25 21:45 Exam Vital Signs Vital Signs Date Time Temp Pulse Resp B/P (MAP) Pulse Ox O2 Delivery O2 Flow Rate FiO2 08/09/25 21:38 202/95 (130) 08/09/25 19:09 98.2 80 18 98 98.2 General Appearance: Alert, Oriented X3, Cooperative, No acute distress HEENT: Atraumatic, PERRLA, EOMI, Mucous membr. moist/pink Respiratory: Normal air movement Cardiovascular: Regular rate, Normal S1, Normal S2, No murmurs Abdominal: Normal bowel sounds, Soft, No tenderness, No hepatospenomegaly, No masses Extremities: No clubbing, No cyanosis, No edema, Normal pulses, No tenderness/swelling Skin: No rashes, No significant lesion Neuro: Normal speech, Normal tone, Sensation intact, Cranial nerves 3-12 NL, Reflexes 2+, Other (Generalized weakness) Psych/Mental Status: Mental status NL, Mood NL Labs/Xrays Labs Test 08/09/25 21:56 08/09/25 19:28 08/09/25 16:26 Range/Units Lactic Acid Level 0.7 0.4-2.0 mmol/L Troponin I High Sensitivity 11 </=34 ng/L White Blood Count 10.7 4.4-10.8 10^3/uL Red Blood Count 3.49 L 4.0-5.20 10^6/uL Hemoglobin 10.1 L 12.2-16.2 g/dL Hematocrit 31.4 L 36.0-46.0 % Mean Corpuscular Volume 90.0 80.0-100.0 fL Mean Corpuscular Hemoglobin 29.1 28.0-32.0 pg Mean Corpuscular Hemoglobin Concent 32.3 32.0-36.0 g/dL Red Cell Distribution Width 16.0 H 11.8-14.3 % Platelet Count 453 H 140-450 10^3/uL Mean Platelet Volume 8.7 6.9-10.8 fL Neutrophils (%) (Auto) 66.4 37.0-80.0 % Lymphocytes (%) (Auto) 23.8 10.0-50.0 % Monocytes (%) (Auto) 5.4 0.0-12.0 % Eosinophils (%) (Auto) 2.7 0.0-7.0 % Basophils (%) (Auto) 1.7 0.0-2.0 % Neutrophils # (Auto) 7.1 1.6-8.6 10 ^3/uL Lymphocytes # (Auto) 2.6 0.4-5.4 10 ^3/uL Monocytes # (Auto) 0.6 0-1.3 10 ^3/uL Eosinophils # (Auto) 0.3 0-0.8 10 ^3/uL Basophils # (Auto) 0.2 0-0.2 10 ^3/uL Nucleated Red Blood Cells 0.1 % Sodium Level 138 136-145 mmol/L Potassium Level 4.6 3.5-5.1 mmol/L Chloride Level 110 H 98-107 mmol/L Carbon Dioxide Level 21 20-31 mmol/L Anion Gap 7 5-15 Blood Urea Nitrogen 21 9-23 mg/dL Creatinine 2.51 H 0.550-1.02 mg/dL Glomerular Filtration Rate Calc 23 >90 mL/min BUN/Creatinine Ratio 8.4 L 10.0-20.0 Serum Glucose 261 H 74-106 mg/dL Calcium Level 8.3 L 8.7-10.4 mg/dL Total Bilirubin < 0.2 L 0.2-1.0 mg/dL Aspartate Amino Transferase (AST) 12 L 13-40 U/L Alanine Aminotransferase (ALT) 11 7-40 U/L Alkaline Phosphatase 139 H 46-116 U/L C-Reactive Protein High Sensitivity 1.06 H <1.0 mg/dL Total Protein 5.6 L 5.7-8.2 g/dL Albumin 3.2 3.2-4.8 g/dL POC Glucose 192 H 70-106 mg/dl PATIENT: PRABHU GAMEZT: [id number] UNIT: [id number] : 1975 LOC: ER ROOM / BED: / AGE / SEX: 49 / F ADM STATUS: REG ER SERVICE 34 ORDERING PHYSICIAN: SHANEKA HEART DO PROCEDURE(s): HWOCT - HEAD WITHOUT CONTRAST REASON: htn ORDER NUMBER(s): [id number], ACCESSION NUMBER(s): [id number] CT HEAD WITHOUT CONTRAST INDICATION: htn COMPARISON: CT HEAD WITHOUT CONTRAST on DOS: 04/16/25 TECHNIQUE: CT of the head without intravenous contrast. RADIATION DOSE: CTDIvol: 54 mGy, DLP: 957 mGy*cm FINDINGS: There is no evidence of acute intracranial hemorrhage, extra-axial collection, mass effect, midline shift, herniation or hydrocephalus. The ventricles, sulci and cisterns are age appropriate. The mayes-white differentiation is intact. The visualized paranasal sinuses and mastoid air cells are clear. The surrounding soft tissues and osseous structures are unremarkable. IMPRESSION: 1. No evidence of acute intracranial hemorrhage, mass effect or hydrocephalus. ORDERING PHYSICIAN: SHANEKA HEART DO PROCEDURE(s): NKICT - NECK WITHOUT CONTRAST REASON: L NECK MASS ORDER NUMBER(s): [id number], ACCESSION NUMBER(s): [id number] Accession Number: [id number] Clinical History: L NECK MASS Comparison: MSL on DOS: 02/08/22 Technique: Multi-slice CT scan of the neck was performed without intravenous contrast. Radiation Dose Information: CT Dose: CTDI volume is 21.37 mGy. Dose-length product is 498.2 mGy*cm Findings: There is a 2.0 x 1.1 cm region of soft tissue thickening about the left lateral superficial neck with underlying adjacent stranding and borderline nodes. The nasopharynx, oropharynx, hypopharynx, esophagus, and larynx demonstrate normal patency and contour. The parotid, submandibular, and thyroid glands are unremarkable. The lung apices are unremarkable. The orbits are unremarkable. Visualized intracranial components are clear. There is mild mucosal thickening within the left maxillary antrum. Impression: 1. Soft tissue thickening about the left lateral neck with underlying adjacent stranding and borderline nodes. Findings may be referable to an infectious/inflammatory process. A posttreatment follow-up is suggested to ensure appropriate resolution. ORDERING PHYSICIAN: SHANEKA HEART DO PROCEDURE(s): CXRP - CHEST PORTABLE REASON: HTN ORDER NUMBER(s): [id number], ACCESSION NUMBER(s): [id number] CHEST RADIOGRAPH REASON FOR EXAM: HTN COMPARISON: XY CHEST XRAY 1 VIEW on DOS: 05/11/25, XY CHEST PORTABLE on DOS: 12/14/24, XY CHEST PORTABLE on DOS: 12/11/24, XY CHEST XRAY 1 VIEW on DOS: 10/23/24, XY CHEST XRAY 1 VIEW on DOS: 09/06/24 TECHNIQUE: One view of the chest is provided FINDINGS: The cardiomediastinal silhouette is within normal limits for technique. There is no focal airspace disease. There is no significant pleural effusion. No acute bony abnormality is identified. IMPRESSION: No radiographic evidence of acute cardiopulmonary process. SEPSIS Sepsis Screen Date sepsis recognized/suspect: Aug 09, 2025 Time Sepsis recognized/suspect: 0 Recent Procedure: No On Antibiotic Therapy: No Respiratory Rate >20: No Heart Rate >90: No Temp<36 C (96.8 F) or >38.3 C: No SBP <90 or MAP <65 mmHG: No New Acute Mental Status Change: No Is the patient on CPAP, BIPAP,: No Physician Orders [employer] (08/09/25 ) Drug Screen (08/09/25 19:11) Urinalysis (08/09/25 19:11) Chest Portable (08/09/25 19:11) Electrocardigram (08/09/25 19:11) Vancomycin Per Pharmacy (08/09/25 21:30) Labetalol Hcl (Labetalol Hcl) (08/09/25 21:45) Neck Without Contrast (08/09/25 21:31) Blood Culture (08/09/25 21:31) Head Without Contrast (08/09/25 21:35) Vancomycin 1.5gm/250ml (Vancomycin [place] (08/09/25 22:45) Consistent Carb(Ccho)Diabetes (08/10/25 Breakfast) Amlodipine Tablet (Norvasc Tablet) (08/09/25 23:00) Amlodipine Tablet (Norvasc Tablet) (08/10/25 10:00) Clonidine Hcl Tablet (Catapres Tablet) (08/09/25 23:00) Clonidine Hcl Tablet (Catapres Tablet) (08/09/25 23:00) Aspirin Tablet (08/10/25 10:00) Carvedilol Tablet (Coreg Tablet) (08/10/25 10:00) B-Type Natriuretic Peptide (08/09/25 22:46) Glucose Blood (Accu-Chek Comfort Curve T (08/10/25 00:00) Moderate Insulin Ss (08/10/25 00:00) Dextrose 50% Syringe (08/09/25 23:00) Admit (08/09/25 22:46) Allergies (08/09/25 22:46) Code Status (08/09/25 22:46) Sodium Chloride Lock (Saline Lock Ns) (08/10/25 06:00) Oxygen Per Hour (08/09/25 22:46) Ondansetron Hcl (Zofran) (08/09/25 23:00) Docusate Sodium Capsule (Colace Capsule) (08/09/25 23:00) Complete Blood Count (08/10/25 04:00) Comprehensive Metabolic Panel (08/10/25 04:00) Condition: Serious (08/09/25 22:46) Acetaminophen Tablet (Tylenol Tablet) (08/09/25 23:00) Bedrest With Bathroom Privileg (08/09/25 22:46) Maintain Bed Rest (08/09/25 22:46) Morphine Sulfate Injection (08/09/25 23:00) Sequential Compression Device (08/09/25 ) Nitroglycerin Sublingual (Ntrostat Subli (08/09/25 23:00) Morphine Sulfate Injection (08/09/25 23:00) Stat Ekg For Chest Pain (08/09/25 22:46) Notify Md Of Changes From Base (08/09/25 22:46) Supervisor Engine Assembly For 24 Hours (08/09/25 22:46) Emergency Dysrhythmia Protocol (08/09/25 22:46) Rhythm Strips Once Every Shift (08/09/25 22:46) Oxygen By Nasal Cannula (08/09/25 22:46) Vital Signs Date Time Temp Pulse Resp B/P (MAP) Pulse Ox O2 Delivery O2 Flow Rate FiO2 08/09/25 21:38 202/95 (130) 08/09/25 21:15 158/76 (103) 08/09/25 19:35 208/96 08/09/25 19:09 98.2 80 18 201/101 (134) 98 98.2 08/09/25 16:29 98.2 77 18 234/85 98 98.2 Laboratory Tests Test 08/09/25 19:28 08/09/25 21:56 White Blood Count 10.7 10^3/uL (4.4-10.8) Lactic Acid Level 0.7 mmol/L (0.4-2.0) Medications Medications Dose Ordered Sig/Mariel Route Start Time Stop Time Status Last Admin Dose Admin Acetaminophen/ Hydrocodone Bitart 1 tab ONCE ONCE PO 08/09/25 17:45 08/09/25 17:46 DC 08/09/25 17:49 1 TAB Nitroglycerin 0.4 mg ONCE ONCE SL 08/09/25 19:30 08/09/25 19:31 DC 08/09/25 19:35 0.4 MG Assessment/Plan Assessment/Plan Hypertensive urgency Mass of left side of neck Acute on chronic renal failure Diabetes mellitus with hyperglycemia Generalized weakness Plan 1. Admit to telemetry unit 2. Breathing treatment 3. Pain control management 4. IV antibiotic management 5. Management of fluids and electrolytes 6. Consultation for hospitalist 7. Diagnostic test neck CT 8. DVT prophylaxis on SCDs 9. Repeat labs CBC, CMP in a.m. 10. Home medication reviewed and reconciled 11. Continue with current medical management 12. Treatment plan discussed with patient and RN. Patient verbalized understanding. Plan discussed with: Patient, Other (RN) My Orders Orders - YOVANI NOGUERA DNP Procedure Category Date Status Time Consistent DIET 08/10/25 Verified Carb(Ccho)Diabetes Breakfast Amlodipine Tablet PHA 08/09/25 Verified (Norvasc Tablet) 23:00 Amlodipine Tablet PHA 08/10/25 Verified (Norvasc Tablet) 10:00 Clonidine Hcl Tablet PHA 08/09/25 Verified (Catapres Tablet) 23:00 Clonidine Hcl Tablet PHA 08/09/25 Verified (Catapres Tablet) 23:00 Aspirin Tablet PHA 08/10/25 Verified 10:00 Carvedilol Tablet PHA 08/10/25 Verified (Coreg Tablet) 10:00 B-Type Natriuretic LAB 08/09/25 Verified Peptide 22:46 Glucose Blood PHA 08/10/25 Verified (Accu-Chek Comfort 00:00 Moderate Insulin Ss PHA 08/10/25 Verified 00:00 Dextrose 50% Syringe PHA 08/09/25 Verified 23:00 Admit ADMIT 08/09/25 Verified 22:46 Allergies VELMA 08/09/25 Verified 22:46 Code Status CODE 08/09/25 Verified 22:46 Sodium Chloride Lock PHA 08/10/25 Verified (Saline Lock Ns) 06:00 Oxygen Per Hour RT 08/09/25 Verified 22:46 Ondansetron Hcl [facility] 08/09/25 Verified (Zofran) 23:00 Docusate Sodium [facility] 08/09/25 Verified Capsule (Colace 23:00 Complete Blood Count LAB 08/10/25 Verified 04:00 Comprehensive LAB 08/10/25 Verified Metabolic Panel 04:00 Condition: Serious [facility] 08/09/25 Verified 22:46 Acetaminophen Tablet [facility] 08/09/25 Verified (Tylenol Tablet) 23:00 Bedrest With Bathroom [facility] 08/09/25 Verified Privileg 22:46 Maintain Bed Rest [facility] 08/09/25 Verified 22:46 Morphine Sulfate [facility] 08/09/25 Verified Injection 23:00 Sequential [facility] 08/09/25 Verified Compression Device Nitroglycerin [facility] 08/09/25 Verified Sublingual (Ntrostat 23:00 Morphine Sulfate [facility] 08/09/25 Verified Injection 23:00 Stat Ekg For Chest [facility] 08/09/25 Verified Pain 22:46 Notify Md Of Changes [facility] 08/09/25 Verified From Base 22:46 Supervisor Engine Assembly For [facility] 08/09/25 Verified 24 Hours 22:46 Emergency Dysrhythmia [facility] 08/09/25 Verified Protocol 22:46 Rhythm Strips Once [facility] 08/09/25 Verified Every Shift 22:46 Oxygen By Nasal RT 08/09/25 Verified Cannula 22:46 Problem List: (1) Hypertensive urgency (2) Mass of left side of neck (3) Acute on chronic renal failure (4) Diabetes mellitus with hyperglycemia (5) Generalized weakness Date of Service: Aug 09, 2025 Billing Provider: YOVANI NOGUERA DNP Common Visit Codes: [id number] INP/OBS CARE (HIGH) YOVANI NOGUERA DNP Aug 09, 2025 23:09
[2025-08-09] MEDS: FUROSEMIDE 40 MG/4 ML VIAL IV ONE (23:14)
[2025-08-09] MEDS ORDERED: MORPHINE SULFATE INJ 2 MG/ml SYRG IV PRN (23:30)
[2025-08-10] VITALS (9 sets, daily range): BP systolic 101–168; BP diastolic 43–75; PULSE 63–77; RESP 13–18; TEMP 97.8–98.3; O2SAT 97–99
[2025-08-10] MEDS: VANCOMYCIN 1.5GM/250ML 250 ML IV ONE (01:43)
[2025-08-10] MEDS: ACCU-CHEK COMFORT CURVE STRIP VI SCH (01:55)
[2025-08-10] MEDS: InsuLIN REG 1unit/0.01ml Soln (100units/ml) SC SCH (01:55)
[2025-08-10] MEDS: diphenhydrAMINE HCL 50 MG/1 ML VL ONE (02:50)
[2025-08-10] MEDS: ACETAMINOPHEN 325 MG TAB PO PRN (02:51)
[2025-08-10] MEDS: MORPHINE SULFATE INJ 2 MG/ml SYRG IV PRN ×2 (02:51→11:31)
[2025-08-10 03:57] LABS: Hematocrit 27.0 % (36.0-46.0); Hemoglobin 8.7 g/dL (12.2-16.2); Mean Corpuscular Hemoglobin 28.5 pg (28.0-32.0); Mean Corpuscular Volume 88.5 fL (80.0-100.0); Nucleated Red Blood Cells % 0.0 %
[2025-08-10 04:19] LABS: Alanine Aminotransferase 10 U/L (7-40); Alkaline Phosphatase 114 U/L (46-116); Anion Gap 9 (5-15); BUN/Creatinine Ratio 7.9 (10.0-20.0); Blood Urea Nitrogen 19 mg/dL (9-23); Potassium 4.3 mmol/L (3.5-5.1); Sodium 138 mmol/L (136-145)
[2025-08-10 04:27] LABS: Albumin 3.1 g/dL (3.2-4.8); Bilirubin, Total < 0.2 mg/dL (0.2-1.0); Calcium 8.0 mg/dL (8.7-10.4); Carbon Dioxide 19 mmol/L (20-31); Chloride 110 mmol/L (98-107); Glucose 236 mg/dL (74-106); Total Protein 5.5 g/dL (5.7-8.2)
[2025-08-10] MEDS: SODIUM CHLOR 0.9% PF (SALINE LOCK) 10ML VIAL/SYR IV SCH (06:02)
[2025-08-10] MEDS: CARVEDILOL 3.125 MG TAB PO SCH (10:13)
[2025-08-10 12:03] LABS: Amphetamine Screen, Urine Neg (NEGATIVE); Opiate Scree,Urine Pos (NEGATIVE)
[2025-08-10 12:09] LABS: Urine Protein, UAD 3+ (Negative)
[2025-08-10 12:11] LABS: Barbiturate Scree,Urine Neg (NEGATIVE); Benzodiazephine Screen, Urine Neg (NEGATIVE); Cannabinoid Screen, Urine Neg (NEGATIVE); Cocaine Screen, Urine Neg (NEGATIVE); Phencyclidine Screen, Urine Neg (NEGATIVE)
[2025-08-10] MEDS: diphenhydrAMINE HCL 50 MG/1 ML VL IV PRN (18:50)
--- NOTE | 2025-08-10 22:57 | DVHPN2 ---
Reviewed: Care Plan, H&P, Labs, Medications, Previous Orders Changes from previous H/P or p: No Changes General: Per HPI Eyes: No Pain, No Vision change, No Conjunctivae inflammation, No Eyelid inflammation, No Other, No Redness ENT: No Ear pain, No Ear discharge, No Nose pain, No Nose discharge, No Nose congestion, No Mouth pain, No Mouth swelling, No Throat pain, No Throat swelling, No Other Cardiovascular: No Chest Pain, No Palpitations, No Orthopnea, No Paroxysmal Noc. Dyspnea, No Edema, No Lt Headedness, No Other Respiratory: No Cough, No Dry, No Shortness of breath, No SOB with excertion, No Wheezing, No Hemoptysis, No Pleuritic Pain, No Sputum, No Other Gastrointestinal: No Nausea, No Vomiting, No Abdominal Pain, No Diarrhea, No Constipation, No Melena, No Hematochezia, No Other Genitourinary: No Dysuria, No Frequency, No Incontinence, No Hematuria, No Retention, No Other Musculoskeletal: No other, No neck pain, No shoulder pain, No arm pain, No back pain, No hand pain, No leg pain, No foot pain Skin: No Rash; Lesions (Left neck); No Jaundice, No Bruising, No Other Objective Vitals Vital Signs Date Time Temp Pulse Resp B/P (MAP) Pulse Ox O2 Delivery O2 Flow Rate FiO2 08/10/25 21:00 71 16 134/75 (94) 98 08/10/25 17:29 98.0 98.0 08/10/25 12:18 Room Air* 0 21 Medications Current Medications Medications Dose Ordered Sig/Mariel Route Start Time Stop Time Status Last Admin Dose Admin Vancomycin HCl 0 ml @ 0 mls/hr UD IV 08/09/25 21:30 Amlodipine Besylate 10 mg DAILY PO 08/10/25 10:00 08/10/25 10:12 10 MG Clonidine HCl 0.1 mg Q4HP PRN PO 08/09/25 23:00 Aspirin 81 mg DAILY PO 08/10/25 10:00 08/10/25 10:12 81 MG Carvedilol 6.25 mg Q12HR PO 08/10/25 10:00 08/10/25 20:54 6.25 MG Diagnostic Test (Pha) 1 strip IQ4HR 08/10/25 00:00 08/10/25 20:34 1 STRIP Insulin Human Regular IQ4HR SC 08/10/25 00:00 08/10/25 20:34 3 UNITS Dextrose 50 ml UD PRN IV 08/09/25 23:00 Sodium Chloride 10 ml Q8HR IV 08/10/25 06:00 08/10/25 20:53 10 ML Ondansetron HCl 4 mg Q4HP PRN IV 08/09/25 23:00 Docusate Sodium 100 mg BIDPRN PRN PO 08/09/25 23:00 Acetaminophen 650 mg Q6HP PRN PO 08/09/25 23:00 08/10/25 02:51 650 MG Morphine Sulfate 2 mg Q4HPRN PRN IV 08/09/25 23:00 08/10/25 18:13 2 MG Nitroglycerin 0.4 mg Q5MINP PRN SL 08/09/25 23:00 Morphine Sulfate 2 mg Q30M PRN IV 08/09/25 23:00 08/10/25 02:51 2 MG Diphenhydramine HCl 25 mg Q4HP PRN IV 08/10/25 03:00 08/10/25 18:50 25 MG Laboratory Results Laboratory Tests 08/10/25 03:36 Chemistry Test 08/10/25 03:36 Albumin 3.1 g/dL (3.2-4.8) L Calcium Level 8.0 mg/dL (8.7-10.4) L Total Protein 5.5 g/dL (5.7-8.2) L LFT Test 08/10/25 03:36 Alanine Aminotransferase (ALT) 10 U/L (7-40) Alkaline Phosphatase 114 U/L (46-116) Aspartate Amino Transferase (AST) 10 U/L (13-40) L Total Bilirubin < 0.2 mg/dL (0.2-1.0) L Urinalysis Test 08/10/25 10:15 Urine Color Yellow (Yellow) Urine Clarity Cloudy (Clear) H Urine pH 8.0 (5.0-9.0) Urine Specific [place] 1.011 (1.001-1.035) Urine Protein 3+ (Negative) H Urine Ketones Negative (Negative) Urine Blood Trace /uL (Negative) H Urine Nitrite Negative (Negative) Urine Bilirubin Negative (Negative) Urine Urobilinogen Normal mg/dL (Negative) Urine Leukocyte Esterase 3+ /uL (Negative) Urine RBC 5 /hpf (0 - 4) Urine Microscopic WBC 184 /HPF (0-5) H Urine Squamous Epithelial Cells Few /hpf (<5) Urine Triple Phosphate Crystals Mod /hpf (None Seen) Urine Bacteria Few /hpf (None Seen) H Urine Glucose 4+ mg/dL (Normal) H Microbiology Microbiology Date/Time Source Procedure Growth Status 08/09/25 22:02 Blood Blood Culture - Preliminary NO GROWTH AFTER 24 HOURS OF INCUBATION. Resulted NATE CARDOZA DO Aug 10, 2025 22:57
[2025-08-11] VITALS (8 sets, daily range): BP systolic 140–168; BP diastolic 73–88; PULSE 61–71; RESP 12–18; TEMP 97.7–98.6; O2SAT 95–99
[2025-08-11] MEDS: DOCUSATE SOD 100 MG CAP PO PRN (00:05)
[2025-08-11 06:22] LABS: Hematocrit 28.3 % (36.0-46.0); Hemoglobin 9.1 g/dL (12.2-16.2); Mean Corpuscular Hemoglobin 28.5 pg (28.0-32.0); Mean Corpuscular Volume 88.0 fL (80.0-100.0); Nucleated Red Blood Cells % 0.0 %
[2025-08-11] MEDS: VANCOMYCIN 750MG KIT 100 ML IV ONE (14:56)
[2025-08-12] VITALS (8 sets, daily range): BP systolic 122–162; BP diastolic 64–78; PULSE 62–70; RESP 16–18; TEMP 97.5–98.6; O2SAT 96–98
--- NOTE | 2025-08-12 02:07 | DVHPN2 ---
Reviewed: Care Plan, H&P, Labs, Medications, Previous Orders Changes from previous H/P or p: No Changes General: Per HPI Eyes: No Pain, No Vision change, No Conjunctivae inflammation, No Eyelid inflammation, No Other, No Redness ENT: No Ear pain, No Ear discharge, No Nose pain, No Nose discharge, No Nose congestion, No Mouth pain, No Mouth swelling, No Throat pain, No Throat swelling, No Other Cardiovascular: No Chest Pain, No Palpitations, No Orthopnea, No Paroxysmal Noc. Dyspnea, No Edema, No Lt Headedness, No Other Respiratory: No Cough, No Dry, No Shortness of breath, No SOB with excertion, No Wheezing, No Hemoptysis, No Pleuritic Pain, No Sputum, No Other Gastrointestinal: No Nausea, No Vomiting, No Abdominal Pain, No Diarrhea, No Constipation, No Melena, No Hematochezia, No Other Genitourinary: No Dysuria, No Frequency, No Incontinence, No Hematuria, No Retention, No Other Musculoskeletal: No other, No neck pain, No shoulder pain, No arm pain, No back pain, No hand pain, No leg pain, No foot pain Skin: No Rash; Lesions (Left neck); No Jaundice, No Bruising, No Other Objective Vitals Vital Signs Date Time Temp Pulse Resp B/P (MAP) Pulse Ox O2 Delivery O2 Flow Rate FiO2 08/11/25 22:30 71 159/83 08/11/25 22:00 17 08/11/25 21:00 98.0 96 98.0 08/11/25 20:00 Room Air* 0 21 Intake/Output Intake and Output 08/12/25 07:00 Intake Total 1200 ml Balance 1200 ml Intake Oral 1200 ml # Voids 4 Medications Current Medications Medications Dose Ordered Sig/Mariel Route Start Time Stop Time Status Last Admin Dose Admin Vancomycin HCl 0 ml @ 0 mls/hr UD IV 08/09/25 21:30 Amlodipine Besylate 10 mg DAILY PO 08/10/25 10:00 08/11/25 10:06 10 MG Clonidine HCl 0.1 mg Q4HP PRN PO 08/09/25 23:00 Aspirin 81 mg DAILY PO 08/10/25 10:00 08/11/25 10:06 81 MG Carvedilol 6.25 mg Q12HR PO 08/10/25 10:00 08/11/25 21:30 6.25 MG Diagnostic Test (Pha) 1 strip IQ4HR 08/10/25 00:00 08/12/25 00:01 1 STRIP Insulin Human Regular IQ4HR SC 08/10/25 00:00 08/12/25 00:03 3 UNITS Dextrose 50 ml UD PRN IV 08/09/25 23:00 Sodium Chloride 10 ml Q8HR IV 08/10/25 06:00 08/11/25 21:31 10 ML Ondansetron HCl 4 mg Q4HP PRN IV 08/09/25 23:00 Docusate Sodium 100 mg BIDPRN PRN PO 08/09/25 23:00 08/11/25 00:05 100 MG Acetaminophen 650 mg Q6HP PRN PO 08/09/25 23:00 08/11/25 16:42 650 MG Morphine Sulfate 2 mg Q4HPRN PRN IV 08/09/25 23:00 08/11/25 21:30 2 MG Nitroglycerin 0.4 mg Q5MINP PRN SL 08/09/25 23:00 Morphine Sulfate 2 mg Q30M PRN IV 08/09/25 23:00 08/10/25 02:51 2 MG Diphenhydramine HCl 25 mg Q4HP PRN IV 08/10/25 03:00 08/11/25 20:23 25 MG Laboratory Results Laboratory Tests 08/10/25 03:36 08/11/25 04:50 Urinalysis Test 08/10/25 10:15 Urine Color Yellow (Yellow) Urine Clarity Cloudy (Clear) H Urine pH 8.0 (5.0-9.0) Urine Specific [place] 1.011 (1.001-1.035) Urine Protein 3+ (Negative) H Urine Ketones Negative (Negative) Urine Blood Trace /uL (Negative) H Urine Nitrite Negative (Negative) Urine Bilirubin Negative (Negative) Urine Urobilinogen Normal mg/dL (Negative) Urine Leukocyte Esterase 3+ /uL (Negative) Urine RBC 5 /hpf (0 - 4) Urine Microscopic WBC 184 /HPF (0-5) H Urine Squamous Epithelial Cells Few /hpf (<5) Urine Triple Phosphate Crystals Mod /hpf (None Seen) Urine Bacteria Few /hpf (None Seen) H Urine Glucose 4+ mg/dL (Normal) H Microbiology Microbiology Date/Time Source Procedure Growth Status 08/09/25 22:02 Blood Blood Culture - Preliminary NO GROWTH AFTER 48 HOURS OF INCUBATION. Resulted Date of Service: Aug 11, 2025 Common Visit Codes: [id number] INP/OBS CARE(HIGH) NATE CARDOZA DO Aug 12, 2025 02:07
[2025-08-12] MEDS: PIPERACILLIN-TAZOB 3.375GM 100 ML IV SCH (05:02)
[2025-08-12 07:27] LABS: Hematocrit 28.2 % (36.0-46.0); Hemoglobin 9.2 g/dL (12.2-16.2); Mean Corpuscular Hemoglobin 28.7 pg (28.0-32.0); Mean Corpuscular Volume 87.9 fL (80.0-100.0); Nucleated Red Blood Cells % 0.1 %
--- NOTE | 2025-08-12 13:22 | DVHPN2 ---
Subjective 49-year-old female with a known history of diabetes mellitus type 2, hypertension, dyslipidemia, CKD, CHF presented to the hospital with a left-sided neck bug bite found to have hypertensive urgency. Reviewed: Care Plan, H&P, Labs, Medications, Previous Orders Changes from previous H/P or p: No Changes General: Per HPI Eyes: No Pain, No Vision change, No Conjunctivae inflammation, No Eyelid inflammation, No Other, No Redness ENT: No Ear pain, No Ear discharge, No Nose pain, No Nose discharge, No Nose congestion, No Mouth pain, No Mouth swelling, No Throat pain, No Throat swelling, No Other Cardiovascular: No Chest Pain, No Palpitations, No Orthopnea, No Paroxysmal Noc. Dyspnea, No Edema, No Lt Headedness, No Other Respiratory: No Cough, No Dry, No Shortness of breath, No SOB with excertion, No Wheezing, No Hemoptysis, No Pleuritic Pain, No Sputum, No Other Gastrointestinal: No Nausea, No Vomiting, No Abdominal Pain, No Diarrhea, No Constipation, No Melena, No Hematochezia, No Other Genitourinary: No Dysuria, No Frequency, No Incontinence, No Hematuria, No Retention, No Other Musculoskeletal: No other, No neck pain, No shoulder pain, No arm pain, No back pain, No hand pain, No leg pain, No foot pain Skin: No Rash; Lesions (Left neck); No Jaundice, No Bruising, No Other Objective Vitals Vital Signs Date Time Temp Pulse Resp B/P (MAP) Pulse Ox O2 Delivery O2 Flow Rate FiO2 08/12/25 10:18 63 162/78 08/12/25 09:38 17 08/12/25 08:48 98.6 96 98.6 08/11/25 20:00 Room Air* 0 21 Intake/Output Intake and Output 08/12/25 07:00 Intake Total 2000 ml Balance 2000 ml Intake Oral 2000 ml # Voids 7 Exam HEENT pupils are reactive Neck left-sided neck wound status post antiseptic dressing CV is S1-S2 regular rate and rhythm Respiratory diminished breath sounds bases GI positive bowel sound 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 Medications Current Medications Medications Dose Ordered Sig/Mariel Route Start Time Stop Time Status Last Admin Dose Admin Vancomycin HCl 0 ml @ 0 mls/hr UD IV 08/09/25 21:30 Amlodipine Besylate 10 mg DAILY PO 08/10/25 10:00 08/12/25 09:18 10 MG Clonidine HCl 0.1 mg Q4HP PRN PO 08/09/25 23:00 Aspirin 81 mg DAILY PO 08/10/25 10:00 08/12/25 09:17 81 MG Carvedilol 6.25 mg Q12HR PO 08/10/25 10:00 08/12/25 09:18 6.25 MG Diagnostic Test (Pha) 1 strip IQ4HR 08/10/25 00:00 08/12/25 11:59 1 STRIP Insulin Human Regular IQ4HR SC 08/10/25 00:00 08/12/25 12:19 6 UNITS Dextrose 50 ml UD PRN IV 08/09/25 23:00 Sodium Chloride 10 ml Q8HR IV 08/10/25 06:00 08/12/25 05:02 10 ML Ondansetron HCl 4 mg Q4HP PRN IV 08/09/25 23:00 Docusate Sodium 100 mg BIDPRN PRN PO 08/09/25 23:00 08/11/25 00:05 100 MG Acetaminophen 650 mg Q6HP PRN PO 08/09/25 23:00 08/12/25 06:37 650 MG Morphine Sulfate 2 mg Q4HPRN PRN IV 08/09/25 23:00 08/12/25 09:08 2 MG Nitroglycerin 0.4 mg Q5MINP PRN SL 08/09/25 23:00 Morphine Sulfate 2 mg Q30M PRN IV 08/09/25 23:00 08/10/25 02:51 2 MG Diphenhydramine HCl 25 mg Q4HP PRN IV 08/10/25 03:00 08/12/25 12:13 25 MG Piperacillin Sod/ Tazobactam Sod 100 ml @ 25 mls/hr Q6HR IV 08/12/25 06:00 08/12/25 12:13 25 MLS/HR Acetaminophen/ Hydrocodone Bitart 1 tab Q4HP PRN PO 08/12/25 12:45 UNV Laboratory Results Laboratory Tests 08/12/25 05:30 Chemistry Test 08/12/25 05:30 Albumin Pending Calcium Level Pending Total Protein Pending LFT Test 08/12/25 05:30 Alanine Aminotransferase (ALT) Pending Alkaline Phosphatase Pending Aspartate Amino Transferase (AST) Pending Total Bilirubin Pending Urinalysis Test 08/10/25 10:15 Urine Color Yellow (Yellow) Urine Clarity Cloudy (Clear) H Urine pH 8.0 (5.0-9.0) Urine Specific [place] 1.011 (1.001-1.035) Urine Protein 3+ (Negative) H Urine Ketones Negative (Negative) Urine Blood Trace /uL (Negative) H Urine Nitrite Negative (Negative) Urine Bilirubin Negative (Negative) Urine Urobilinogen Normal mg/dL (Negative) Urine Leukocyte Esterase 3+ /uL (Negative) Urine RBC 5 /hpf (0 - 4) Urine Microscopic WBC 184 /HPF (0-5) H Urine Squamous Epithelial Cells Few /hpf (<5) Urine Triple Phosphate Crystals Mod /hpf (None Seen) Urine Bacteria Few /hpf (None Seen) H Urine Glucose 4+ mg/dL (Normal) H Microbiology Microbiology Date/Time Source Procedure Growth Status 08/09/25 22:02 Blood Blood Culture - Preliminary NO GROWTH AFTER 48 HOURS OF INCUBATION. Resulted Assessment/Plan Assessment/Plan 49-year-old female with a known history of diabetes mellitus type 2, hypertension, CHF, CKD presented to the hospital with a left-sided neck pain with a insect bite found to have 1. Left neck cellulitis 2. Hypertensive urgency 3. Hyperglycemia in the setting of diabetes mellitus type 2 insulin dependent 4. Congestive heart failure unspecified currently not in exacerbation 5. Acute kidney injury with a underlying CKD 6. Dyslipidemia -IV antibiotics, wound care consult for neck wound care, adjust hypertensive meds -DVT GI prophylaxis Plan discussed with: Patient My Orders Orders - LUAN OSMAN MD Procedure Category Date Status Time Comprehensive LAB 08/12/25 In Process Metabolic Panel 12:24 Hydrocodone-Acet PHA 08/12/25 Logged 10/325mg Tab ([place] 12:45 Problem List: (1) Chronic kidney disease Date of Service: Aug 12, 2025 Billing Provider: LUAN OSMAN MD Common Visit Codes: [id number] INP/OBS CARE(HIGH) LUAN OSMAN MD Aug 12, 2025 13:22
[2025-08-12 13:37] LABS: Alanine Aminotransferase 11 U/L (7-40); Alkaline Phosphatase 110 U/L (46-116); Anion Gap 11 (5-15); BUN/Creatinine Ratio 12.3 (10.0-20.0); Potassium 4.8 mmol/L (3.5-5.1); Sodium 137 mmol/L (136-145); Total Protein 5.9 g/dL (5.7-8.2)
[2025-08-12 13:38] LABS: Albumin 3.2 g/dL (3.2-4.8); Bilirubin, Total < 0.2 mg/dL (0.2-1.0); Blood Urea Nitrogen 35 mg/dL (9-23); Calcium 8.6 mg/dL (8.7-10.4); Carbon Dioxide 18 mmol/L (20-31); Chloride 108 mmol/L (98-107); Glucose 147 mg/dL (74-106)
[2025-08-12] MEDS: HYDROcodone-ACET 10/325MG TAB PO PRN (16:42)
[2025-08-13] VITALS (8 sets, daily range): BP systolic 124–153; BP diastolic 67–84; PULSE 61–66; RESP 14–18; TEMP 97.5–98.4; O2SAT 97–98
--- NOTE | 2025-08-13 13:34 | DVHPN2 ---
Subjective 49-year-old female with a known history of diabetes mellitus type 2, hypertension, dyslipidemia, CKD, CHF presented to the hospital with a left-sided neck bug bite found to have hypertensive urgency. Reviewed: Care Plan, H&P, Labs, Medications, Previous Orders Changes from previous H/P or p: No Changes General: Per HPI Eyes: No Pain, No Vision change, No Conjunctivae inflammation, No Eyelid inflammation, No Other, No Redness ENT: No Ear pain, No Ear discharge, No Nose pain, No Nose discharge, No Nose congestion, No Mouth pain, No Mouth swelling, No Throat pain, No Throat swelling, No Other Cardiovascular: No Chest Pain, No Palpitations, No Orthopnea, No Paroxysmal Noc. Dyspnea, No Edema, No Lt Headedness, No Other Respiratory: No Cough, No Dry, No Shortness of breath, No SOB with excertion, No Wheezing, No Hemoptysis, No Pleuritic Pain, No Sputum, No Other Gastrointestinal: No Nausea, No Vomiting, No Abdominal Pain, No Diarrhea, No Constipation, No Melena, No Hematochezia, No Other Genitourinary: No Dysuria, No Frequency, No Incontinence, No Hematuria, No Retention, No Other Musculoskeletal: No other, No neck pain, No shoulder pain, No arm pain, No back pain, No hand pain, No leg pain, No foot pain Skin: No Rash; Lesions (Left neck); No Jaundice, No Bruising, No Other Objective Vitals Vital Signs Date Time Temp Pulse Resp B/P (MAP) Pulse Ox O2 Delivery O2 Flow Rate FiO2 08/13/25 13:00 97.7 61 17 144/84 (104) 97 97.7 08/13/25 08:00 Room Air* 0 21 Intake/Output Intake and Output 08/13/25 07:00 Intake Total 1640 ml Balance 1640 ml Intake Oral 1540 ml IV Total 100 ml # Voids 10 # Bowel Movements 2 Exam HEENT pupils are reactive Neck left-sided neck wound status post antiseptic dressing CV is S1-S2 regular rate and rhythm Respiratory diminished breath sounds bases GI positive bowel sound 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 Medications Current Medications Medications Dose Ordered Sig/Mariel Route Start Time Stop Time Status Last Admin Dose Admin Vancomycin HCl 0 ml @ 0 mls/hr UD IV 08/09/25 21:30 Amlodipine Besylate 10 mg DAILY PO 08/10/25 10:00 08/13/25 10:54 10 MG Clonidine HCl 0.1 mg Q4HP PRN PO 08/09/25 23:00 Aspirin 81 mg DAILY PO 08/10/25 10:00 08/13/25 10:54 81 MG Carvedilol 6.25 mg Q12HR PO 08/10/25 10:00 08/13/25 10:54 6.25 MG Diagnostic Test (Pha) 1 strip IQ4HR 08/10/25 00:00 08/13/25 08:00 1 STRIP Insulin Human Regular IQ4HR SC 08/10/25 00:00 08/13/25 12:15 2 UNITS Dextrose 50 ml UD PRN IV 08/09/25 23:00 Sodium Chloride 10 ml Q8HR IV 08/10/25 06:00 08/13/25 06:22 10 ML Ondansetron HCl 4 mg Q4HP PRN IV 08/09/25 23:00 Docusate Sodium 100 mg BIDPRN PRN PO 08/09/25 23:00 08/11/25 00:05 100 MG Acetaminophen 650 mg Q6HP PRN PO 08/09/25 23:00 08/12/25 06:37 650 MG Morphine Sulfate 2 mg Q4HPRN PRN IV 08/09/25 23:00 Hold 08/12/25 09:08 2 MG Nitroglycerin 0.4 mg Q5MINP PRN SL 08/09/25 23:00 Morphine Sulfate 2 mg Q30M PRN IV 08/09/25 23:00 08/10/25 02:51 2 MG Diphenhydramine HCl 25 mg Q4HP PRN IV 08/10/25 03:00 08/13/25 09:26 25 MG Piperacillin Sod/ Tazobactam Sod 100 ml @ 25 mls/hr Q6HR IV 08/12/25 06:00 08/13/25 12:11 25 MLS/HR Acetaminophen/ Hydrocodone Bitart 1 tab Q4HP PRN PO 08/12/25 12:45 08/13/25 09:26 1 TAB Pantoprazole Sodium 40 mg DAILY IV 08/13/25 20:00 Laboratory Results Laboratory Tests 08/12/25 05:30 08/13/25 06:05 Urinalysis Test 08/10/25 10:15 Urine Color Yellow (Yellow) Urine Clarity Cloudy (Clear) H Urine pH 8.0 (5.0-9.0) Urine Specific [place] 1.011 (1.001-1.035) Urine Protein 3+ (Negative) H Urine Ketones Negative (Negative) Urine Blood Trace /uL (Negative) H Urine Nitrite Negative (Negative) Urine Bilirubin Negative (Negative) Urine Urobilinogen Normal mg/dL (Negative) Urine Leukocyte Esterase 3+ /uL (Negative) Urine RBC 5 /hpf (0 - 4) Urine Microscopic WBC 184 /HPF (0-5) H Urine Squamous Epithelial Cells Few /hpf (<5) Urine Triple Phosphate Crystals Mod /hpf (None Seen) Urine Bacteria Few /hpf (None Seen) H Urine Glucose 4+ mg/dL (Normal) H Microbiology Microbiology Date/Time Source Procedure Growth Status 08/09/25 22:02 Blood Blood Culture - Preliminary NO GROWTH AFTER 72 HOURS OF INCUBATION. Resulted Assessment/Plan Assessment/Plan 49-year-old female with a known history of diabetes mellitus type 2, hypertension, CHF, CKD presented to the hospital with a left-sided neck pain with a insect bite found to have 1. Left neck cellulitis 2. Hypertensive urgency 3. Hyperglycemia in the setting of diabetes mellitus type 2 insulin dependent 4. Congestive heart failure unspecified currently not in exacerbation 5. Acute kidney injury with a underlying CKD 6. Dyslipidemia -IV antibiotics, wound care consult for neck wound care, adjust hypertensive meds -DVT GI prophylaxis , General surgery consultation. Plan discussed with: Patient My Orders Orders - LUAN OSMAN MD Procedure Category Date Status Time Cleanse Wound With VELMA 08/12/25 In Process Wound Clean 13:10 * Dietary Consult CONS 08/12/25 Transmitted 17:03 Pantoprazole PHA 08/13/25 In Process (Protonix) 20:00 Date of Service: Aug 13, 2025 Billing Provider: LUAN OSMAN MD Common Visit Codes: [id number] INP/OBS CARE(HIGH) LUAN OSMAN MD Aug 13, 2025 13:34
[2025-08-13] MEDS: VANCOMYCIN 750MG KIT 100 ML IV SCH (18:26)
[2025-08-13] MEDS: PIPERACILLIN-TAZOB 3.375GM 100 ML IV SCH (21:20)
[2025-08-13] MEDS: PANTOPRAZOLE 40 MG/10 ML VIAL INJ IV SCH (21:52)
[2025-08-14] VITALS (8 sets, daily range): BP systolic 117–150; BP diastolic 68–83; PULSE 59–66; RESP 16–20; TEMP 97.2–98.2; O2SAT 97–100
[2025-08-14] MEDS: VANCOMYCIN 750MG KIT 100 ML IV SCH (04:25)
--- NOTE | 2025-08-14 16:32 | DVHPN2 ---
Subjective 49-year-old female with a known history of diabetes mellitus type 2, hypertension, dyslipidemia, CKD, CHF presented to the hospital with a left-sided neck bug bite found to have hypertensive urgency. Reviewed: Care Plan, H&P, Labs, Medications, Previous Orders Changes from previous H/P or p: No Changes General: Per HPI Eyes: No Pain, No Vision change, No Conjunctivae inflammation, No Eyelid inflammation, No Other, No Redness ENT: No Ear pain, No Ear discharge, No Nose pain, No Nose discharge, No Nose congestion, No Mouth pain, No Mouth swelling, No Throat pain, No Throat swelling, No Other Cardiovascular: No Chest Pain, No Palpitations, No Orthopnea, No Paroxysmal Noc. Dyspnea, No Edema, No Lt Headedness, No Other Respiratory: No Cough, No Dry, No Shortness of breath, No SOB with excertion, No Wheezing, No Hemoptysis, No Pleuritic Pain, No Sputum, No Other Gastrointestinal: No Nausea, No Vomiting, No Abdominal Pain, No Diarrhea, No Constipation, No Melena, No Hematochezia, No Other Genitourinary: No Dysuria, No Frequency, No Incontinence, No Hematuria, No Retention, No Other Musculoskeletal: No other, No neck pain, No shoulder pain, No arm pain, No back pain, No hand pain, No leg pain, No foot pain Skin: No Rash; Lesions (Left neck); No Jaundice, No Bruising, No Other Objective Vitals Vital Signs Date Time Temp Pulse Resp B/P (MAP) Pulse Ox O2 Delivery O2 Flow Rate FiO2 08/14/25 12:41 60 122/71 08/14/25 12:38 97.9 17 98 97.9 08/14/25 08:00 Room Air* 0 21 Intake/Output Intake and Output 08/14/25 07:00 Intake Total 1400 ml Balance 1400 ml Intake Oral 1400 ml # Voids 7 # Bowel Movements 1 Exam HEENT pupils are reactive Neck left-sided neck wound status post antiseptic dressing CV is S1-S2 regular rate and rhythm Respiratory diminished breath sounds bases GI positive bowel sound Extremity no pedal edema [employer] IN[employer]PA[employer]ER no motor deficit Medications Current Medications Medications Dose Ordered Sig/Mariel Route Start Time Stop Time Status Last Admin Dose Admin Vancomycin HCl 0 ml @ 0 mls/hr UD IV 08/09/25 21:30 Amlodipine Besylate 10 mg DAILY PO 08/10/25 10:00 08/14/25 11:42 10 MG Clonidine HCl 0.1 mg Q4HP PRN PO 08/09/25 23:00 08/14/25 08:29 0.1 MG Aspirin 81 mg DAILY PO 08/10/25 10:00 08/14/25 11:42 81 MG Carvedilol 6.25 mg Q12HR PO 08/10/25 10:00 08/14/25 11:41 6.25 MG Diagnostic Test (Pha) 1 strip IQ4HR 08/10/25 00:00 08/14/25 11:43 1 STRIP Insulin Human Regular IQ4HR SC 08/10/25 00:00 08/14/25 04:30 2 UNITS Dextrose 50 ml UD PRN IV 08/09/25 23:00 Sodium Chloride 10 ml Q8HR IV 08/10/25 06:00 08/14/25 11:43 10 ML Ondansetron HCl 4 mg Q4HP PRN IV 08/09/25 23:00 Docusate Sodium 100 mg BIDPRN PRN PO 08/09/25 23:00 08/11/25 00:05 100 MG Acetaminophen 650 mg Q6HP PRN PO 08/09/25 23:00 08/12/25 06:37 650 MG Morphine Sulfate 2 mg Q4HPRN PRN IV 08/09/25 23:00 Hold 08/12/25 09:08 2 MG Nitroglycerin 0.4 mg Q5MINP PRN SL 08/09/25 23:00 Morphine Sulfate 2 mg Q30M PRN IV 08/09/25 23:00 08/14/25 08:03 2 MG Diphenhydramine HCl 25 mg Q4HP PRN IV 08/10/25 03:00 08/13/25 18:46 25 MG Acetaminophen/ Hydrocodone Bitart 1 tab Q4HP PRN PO 08/12/25 12:45 08/14/25 01:58 1 TAB Pantoprazole Sodium 40 mg DAILY IV 08/13/25 20:00 08/14/25 11:42 40 MG Piperacillin Sod/ Tazobactam Sod 100 ml @ 25 mls/hr Q8HR IV 08/13/25 22:00 08/14/25 15:27 25 MLS/HR Laboratory Results Laboratory Tests 08/12/25 05:30 08/14/25 05:44 Urinalysis Test 08/10/25 10:15 Urine Color Yellow (Yellow) Urine Clarity Cloudy (Clear) H Urine pH 8.0 (5.0-9.0) Urine Specific [place] 1.011 (1.001-1.035) Urine Protein 3+ (Negative) H Urine Ketones Negative (Negative) Urine Blood Trace /uL (Negative) H Urine Nitrite Negative (Negative) Urine Bilirubin Negative (Negative) Urine Urobilinogen Normal mg/dL (Negative) Urine Leukocyte Esterase 3+ /uL (Negative) Urine RBC 5 /hpf (0 - 4) Urine Microscopic WBC 184 /HPF (0-5) H Urine Squamous Epithelial Cells Few /hpf (<5) Urine Triple Phosphate Crystals Mod /hpf (None Seen) Urine Bacteria Few /hpf (None Seen) H Urine Glucose 4+ mg/dL (Normal) H Microbiology Microbiology Date/Time Source Procedure Growth Status 08/09/25 22:02 Blood Blood Culture - Preliminary NO GROWTH AFTER 72 HOURS OF INCUBATION. Resulted Assessment/Plan Assessment/Plan 49-year-old female with a known history of diabetes mellitus type 2, hypertension, CHF, CKD presented to the hospital with a left-sided neck pain with a insect bite found to have 1. Left neck cellulitis 2. Hypertensive urgency, improved 3. Hyperglycemia in the setting of diabetes mellitus type 2 insulin dependent 4. Congestive heart failure unspecified currently not in exacerbation 5. Acute kidney injury with a underlying CKD 6. Dyslipidemia -keep holding Lasix, glipizide, Accu-Cheks q.a.c. and HS, repeat BNP in a.m. -IV antibiotics, wound care consult for neck wound care, adjust hypertensive meds -DVT GI prophylaxis , General surgery consultation. Plan discussed with: Patient My Orders Orders - LUAN OSMAN MD Procedure Category Date Status Time Troponin-I Hs LAB 08/14/25 Logged 17:00 Electrocardigram EKG 08/14/25 Logged 15:08 Date of Service: Aug 14, 2025 Billing Provider: LUAN OSMAN MD Common Visit Codes: [id number] INP/OBS CARE(HIGH) LUAN OSMAN MD Aug 14, 2025 16:32
[2025-08-15] VITALS (8 sets, daily range): BP systolic 127–152; BP diastolic 66–82; PULSE 57–64; RESP 16–60; TEMP 97.2–99.6; O2SAT 97–99
[2025-08-15 06:41] LABS: Hemoglobin 8.2 g/dL (12.2-16.2); Nucleated Red Blood Cells % 0.1 %
[2025-08-15 06:44] LABS: Anion Gap 10 (5-15); Carbon Dioxide 21 mmol/L (20-31); Chloride 106 mmol/L (98-107); Hematocrit 24.9 % (36.0-46.0); Mean Corpuscular Hemoglobin 28.6 pg (28.0-32.0); Mean Corpuscular Volume 87.3 fL (80.0-100.0); Potassium 4.8 mmol/L (3.5-5.1); Sodium 137 mmol/L (136-145)
[2025-08-15 06:50] LABS: BUN/Creatinine Ratio 12.6 (10.0-20.0)
[2025-08-15 06:52] LABS: Blood Urea Nitrogen 36 mg/dL (9-23); Calcium 8.4 mg/dL (8.7-10.4); Glucose 130 mg/dL (74-106)
--- NOTE | 2025-08-15 10:38 | DVHINCON2 ---
Date of service: Aug 14, 2025 History of Present Illness 49 yo female who presents to the hospital due to hypertension. Pt also had been bitten by a bug approx 3 days ago. Pt states she had an abscess on left neck which spontaneously drained. Pt denies fc at this time. Past Medical History htn, dm, ckd, chf Family History: Alcoholism FHx: prostate cancer G8 FATHER Family history: Cardiovascular disease G8 MOTHER Family history: Diabetes mellitus G8 MOTHER Family history: Hypertension G8 MOTHER Gout G8 FATHER Heart attack G8 MOTHER Stroke G8 MOTHER Tuberculosis G8 FATHER Allergies: Coded Allergies: Ceftriaxone (Verified Allergy, Mild, 05/12/25) ITCHING AND HIVES Levofloxacin (Verified Allergy, Mild, 05/12/25) ITCHING AND HIVES Codeine (Verified Allergy, Unknown, 03/20/19) Home Meds Active Scripts Cephalexin (KEFLEX CAPSULE) 250 Mg Cp, 1 CAP PO QID for 5 Days, #28 CAP Prov:ALEXI GARCIA RESIDENT 05/14/25 Insulin Lispro (Humalog Kwikpen) 100 Unit/Ml Inj, 10 UNIT SC TID for 30 Days, #9 INJ Please take 8 units before each meal 3 times aday. Prov:DERIK AVINA RESIDENT 04/19/25 Carvedilol (Carvedilol) 6.25 Mg Tab, 1 TAB PO BID for 30 Days, #60 TAB 1 Refill Prov:DERIK AVINA RESIDENT 04/19/25 Insulin Glargine (Lantus Solostar) 100 Unit/Ml Inj, 24 UNIT SC QAM for 30 Days, #9 INJ Please take 24 unit Lantus at QAM daily. Prov:DERIK AVINA RESIDENT 04/19/25 Albuterol Sulfate (VENTOLIN MDI) 90 Mcg Ih, 90 MCG IN TID for 5 Days, #1 INH Prov:PARISH JENSEN RESIDENT 10/26/24 Ferrous Sulfate (Ferrous Sulfate) 325 Mg Tab, 325 MG PO DAILY for 30 Days, #30 TAB 2 Refills Prov:ADNREA JOSHUA RESIDENT 04/07/24 Reported Medications Glipizide (Glipizide) 10 Mg Tab, 10 MG PO BID for 30 Days, MG 02/05/25 Metformin Hydrochloride (Metformin Hcl) 500 Mg Tab, 500 MG PO IBID for 30 Days, MG 02/05/25 Spironolactone (Spironolactone) 25 Mg Tab, 1 TAB PO DAILY for 30 Days, #30 09/04/24 Amlodipine Besylate (Amlodipine Besylate) 10 Mg Tab, 1 TAB PO DAILY for 90 Days, #90 09/04/24 Pantoprazole Sodium Sesquihydr (Protonix) 40 Mg Tab, 1 TAB PO DAILY for 90 Days, #90 09/04/24 Metoclopramide Hcl (Metoclopramide Hcl) 5 Mg Tab, 1 TAB PO TID for 90 Days, #270 09/04/24 Gabapentin (Gabapentin) 100 Mg Cap, 400 MG PO BID for 90 Days, #180 09/04/24 Furosemide (Furosemide) 40 Mg Tab, 1 TAB PO DAILY for 90 Days, #90 09/04/24 Empagliflozin (Jardiance) 10 Mg Tab, 1 TAB PO DAILY for 90 Days, #90 09/04/24 Atorvastatin Calcium (Lipitor) 40 Mg Tab, 1 TAB PO DAILY for 90 Days, #90 09/04/24 Aspirin (Aspirin Low Dose) 81 Mg Chw, 1 TAB PO DAILY for 90 Days, #90 09/04/24 Review of Systems neg unless mentioned in hpi Vital Signs Vital Signs Date Time Temp Pulse Resp B/P (MAP) Pulse Ox O2 Delivery O2 Flow Rate FiO2 08/15/25 10:29 59 150/84 08/15/25 09:00 97.6 18 97 97.6 08/15/25 07:55 Room Air* 0 21 Physical Exam gen; aaox3,nad heent; 2 cm area of induration, minimal flucutance, mildly ttp, no drainage, on left neck abd; soft nd nttp lung; normal effort ext; bilateral pedal edema Labs/Diagnostic Data Labs Test 08/15/25 07:57 08/15/25 05:15 08/14/25 17:05 08/13/25 06:05 Range/Units POC Glucose 118 H 70-106 mg/dl White Blood Count 6.7 4.4-10.8 10^3/uL Red Blood Count 2.85 L 4.0-5.20 10^6/uL Hemoglobin 8.2 L 12.2-16.2 g/dL Hematocrit 24.9 #L 36.0-46.0 % Mean Corpuscular Volume 87.3 80.0-100.0 fL Mean Corpuscular Hemoglobin 28.6 28.0-32.0 pg Mean Corpuscular Hemoglobin Concent 32.8 32.0-36.0 g/dL Red Cell Distribution Width 15.6 H 11.8-14.3 % Platelet Count 415 140-450 10^3/uL Mean Platelet Volume 8.7 6.9-10.8 fL Neutrophils (%) (Auto) 60.6 37.0-80.0 % Lymphocytes (%) (Auto) 28.5 10.0-50.0 % Monocytes (%) (Auto) 7.0 0.0-12.0 % Eosinophils (%) (Auto) 3.3 0.0-7.0 % Basophils (%) (Auto) 0.6 0.0-2.0 % Neutrophils # (Auto) 4.1 1.6-8.6 10 ^3/uL Lymphocytes # (Auto) 1.9 0.4-5.4 10 ^3/uL Monocytes # (Auto) 0.5 0-1.3 10 ^3/uL Eosinophils # (Auto) 0.2 0-0.8 10 ^3/uL Basophils # (Auto) 0 0-0.2 10 ^3/uL Nucleated Red Blood Cells 0.1 % Sodium Level 137 136-145 mmol/L Potassium Level 4.8 3.5-5.1 mmol/L Chloride Level 106 98-107 mmol/L Carbon Dioxide Level 21 20-31 mmol/L Anion Gap 10 5-15 Blood Urea Nitrogen 36 H 9-23 mg/dL Creatinine 2.85 H 0.550-1.02 mg/dL Glomerular Filtration Rate Calc 20 >90 mL/min BUN/Creatinine Ratio 12.6 10.0-20.0 Serum Glucose 130 H 74-106 mg/dL Calcium Level 8.4 L 8.7-10.4 mg/dL Troponin I High Sensitivity 5 </=34 ng/L Random Vancomycin Level 12.8 H 5-10 ug/mL Test 08/12/25 05:30 08/10/25 10:15 08/09/25 21:56 08/09/25 19:28 Range/Units Total Bilirubin < 0.2 L 0.2-1.0 mg/dL Aspartate Amino Transferase (AST) 14 13-40 U/L Alanine Aminotransferase (ALT) 11 7-40 U/L Alkaline Phosphatase 110 46-116 U/L Total Protein 5.9 5.7-8.2 g/dL Albumin 3.2 3.2-4.8 g/dL Urine Color Yellow Yellow Urine Clarity Cloudy H Clear Urine pH 8.0 5.0-9.0 Urine Specific [place] 1.011 1.001-1.035 Urine Protein 3+ H Negative Urine Ketones Negative Negative Urine Blood Trace H Negative /uL Urine Nitrite Negative Negative Urine Bilirubin Negative Negative Urine Urobilinogen Normal Negative mg/dL Urine Leukocyte Esterase 3+ Negative /uL Urine RBC 5 0 - 4 /hpf Urine Microscopic WBC 184 H 0-5 /HPF Urine Squamous Epithelial Cells Few <5 /hpf Urine Triple Phosphate Crystals Mod None Seen /hpf Urine Bacteria Few H None Seen /hpf Urine Glucose 4+ H Normal mg/dL Urine Opiates Screen Pos NEGATIVE Urine Fentanyl Screen Neg NEGATIVE Urine Barbiturates Screen Neg NEGATIVE Urine Phencyclidine Screen Neg NEGATIVE Urine Amphetamines Screen Neg NEGATIVE Urine Benzodiazepines Screen Neg NEGATIVE Urine Cocaine Screen Neg NEGATIVE Urine Cannabinoids Screen Neg NEGATIVE Lactic Acid Level 0.7 0.4-2.0 mmol/L C-Reactive Protein High Sensitivity 1.06 H <1.0 mg/dL B-Type Natriuretic Peptide 121.50 0-100 pg/mL Microbiology Date/Time Source Procedure Growth Status 08/09/25 22:02 Blood Blood Culture - Final NO GROWTH AFTER 5 DAYS OF INCUBATION. Complete Assessment 49 yo female with left neck abscess, resolving Plan/Recommendation abx glucose control cover wound with gauze prn no surgical intervention at this time, is resolving induration will persist for a few days, cont abx fu in office in 2-3 weeks Plan discussed with: Patient (h) REY MUSTAFA MD Aug 15, 2025 10:38
--- NOTE | 2025-08-15 11:58 | ECG ---
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
[2025-08-15] MEDS ORDERED: SPIR25TA8 PO (14:58)
[2025-08-15] MEDS ORDERED: CARV6.2551 PO (14:58)
[2025-08-15] MEDS ORDERED: AMLO1TAB23 PO (14:58)
[2025-08-15] MEDS ORDERED: ASPI81CH59 PO (14:58)
[2025-08-15] MEDS ORDERED: ALBUAER3 IN (14:58)
[2025-08-15] MEDS ORDERED: EMPA1TAB PO (14:58)
[2025-08-15] MEDS ORDERED: ATOR-507 PO (14:58)
[2025-08-15] MEDS ORDERED: NALO4SPR2 (15:00)
[2025-08-15] MEDS ORDERED: AMOX500T92 PO (15:00)
[2025-08-15] MEDS ORDERED: HYDR-4902 PO (15:00)
--- NOTE | 2025-08-15 15:02 | DVHDS2 ---
Discharge Summary Date of Admission Aug 09, 2025 at 22:46 Date of Discharge: Aug 15, 2025 Labs/Diagnostic Data: Laboratory Results Test 08/15/25 12:01 08/15/25 05:15 08/14/25 17:05 08/13/25 06:05 POC Glucose 176 mg/dl (70-106) White Blood Count 6.7 10^3/uL (4.4-10.8) Red Blood Count 2.85 10^6/uL (4.0-5.20) Hemoglobin 8.2 g/dL (12.2-16.2) Hematocrit 24.9 % (36.0-46.0) Mean Corpuscular Volume 87.3 fL (80.0-100.0) Mean Corpuscular Hemoglobin 28.6 pg (28.0-32.0) Mean Corpuscular Hemoglobin Concent 32.8 g/dL (32.0-36.0) Red Cell Distribution Width 15.6 % (11.8-14.3) Platelet Count 415 10^3/uL (140-450) Mean Platelet Volume 8.7 fL (6.9-10.8) Neutrophils (%) (Auto) 60.6 % (37.0-80.0) Lymphocytes (%) (Auto) 28.5 % (10.0-50.0) Monocytes (%) (Auto) 7.0 % (0.0-12.0) Eosinophils (%) (Auto) 3.3 % (0.0-7.0) Basophils (%) (Auto) 0.6 % (0.0-2.0) Neutrophils # (Auto) 4.1 10 ^3/uL (1.6-8.6) Lymphocytes # (Auto) 1.9 10 ^3/uL (0.4-5.4) Monocytes # (Auto) 0.5 10 ^3/uL (0-1.3) Eosinophils # (Auto) 0.2 10 ^3/uL (0-0.8) Basophils # (Auto) 0 10 ^3/uL (0-0.2) Nucleated Red Blood Cells 0.1 % Sodium Level 137 mmol/L (136-145) Potassium Level 4.8 mmol/L (3.5-5.1) Chloride Level 106 mmol/L (98-107) Carbon Dioxide Level 21 mmol/L (20-31) Anion Gap 10 (5-15) Blood Urea Nitrogen 36 mg/dL (9-23) Creatinine 2.85 mg/dL (0.550-1.02) Glomerular Filtration Rate Calc 20 mL/min (>90) BUN/Creatinine Ratio 12.6 (10.0-20.0) Serum Glucose 130 mg/dL (74-106) Calcium Level 8.4 mg/dL (8.7-10.4) Troponin I High Sensitivity 5 ng/L (</=34) Random Vancomycin Level 12.8 ug/mL (5-10) Test 08/12/25 05:30 08/10/25 10:15 08/09/25 21:56 08/09/25 19:28 Total Bilirubin < 0.2 mg/dL (0.2-1.0) Aspartate Amino Transferase (AST) 14 U/L (13-40) Alanine Aminotransferase (ALT) 11 U/L (7-40) Alkaline Phosphatase 110 U/L (46-116) Total Protein 5.9 g/dL (5.7-8.2) Albumin 3.2 g/dL (3.2-4.8) Urine Color Yellow (Yellow) Urine Clarity Cloudy (Clear) Urine pH 8.0 (5.0-9.0) Urine Specific [place] 1.011 (1.001-1.035) Urine Protein 3+ (Negative) Urine Ketones Negative (Negative) Urine Blood Trace /uL (Negative) Urine Nitrite Negative (Negative) Urine Bilirubin Negative (Negative) Urine Urobilinogen Normal mg/dL (Negative) Urine Leukocyte Esterase 3+ /uL (Negative) Urine RBC 5 /hpf (0 - 4) Urine Microscopic WBC 184 /HPF (0-5) Urine Squamous Epithelial Cells Few /hpf (<5) Urine Triple Phosphate Crystals Mod /hpf (None Seen) Urine Bacteria Few /hpf (None Seen) Urine Glucose 4+ mg/dL (Normal) Urine Opiates Screen Pos (NEGATIVE) Urine Fentanyl Screen Neg (NEGATIVE) Urine Barbiturates Screen Neg (NEGATIVE) Urine Phencyclidine Screen Neg (NEGATIVE) Urine Amphetamines Screen Neg (NEGATIVE) Urine Benzodiazepines Screen Neg (NEGATIVE) Urine Cocaine Screen Neg (NEGATIVE) Urine Cannabinoids Screen Neg (NEGATIVE) Lactic Acid Level 0.7 mmol/L (0.4-2.0) C-Reactive Protein High Sensitivity 1.06 mg/dL (<1.0) B-Type Natriuretic Peptide 121.50 pg/mL (0-100) Other Laboratory Tests 08/15/25 05:15 Brief Hx & Hospital Course: 49-year-old female with a known history of diabetes mellitus type 2, hypertension, CHF, CKD presented to the hospital with a left-sided neck pain with a insect bite found to have left neck cellulitis. Patient was seen by General surgery no surgery was recommended. Patient did receive IV antibiotic during the hospital stay. Patient is requesting to go home on pain pills and antibiotics. Patient is being discharged under stable condition. Condition at Discharge: Stable Final Diagnosis/Problems List 49-year-old female with a known history of diabetes mellitus type 2, hypertension, CHF, CKD presented to the hospital with a left-sided neck pain with a insect bite found to have 1. Left neck cellulitis 2. Hypertensive urgency, improved 3. Hyperglycemia in the setting of diabetes mellitus type 2 insulin dependent 4. Congestive heart failure unspecified currently not in exacerbation 5. Acute kidney injury with a underlying CKD 6. Dyslipidemia Discharge Disposition: Home SNF Discharge Will this Physician continue t: No Discharge Instruct/Medications Diet: Cardiac 2g Na,low cholest Diet comment: 1800 ADA diet. Activity: See Comment Activity comment: No driving, no signing legal documents, no playing on machinery while on narcotics. Follow Up/Referral: Please follow up with the PCP in 1-2 weeks with a repeat BMP Medications: Augmentin and home medication as prescribed Please keep holding Lasix, glipizide and metformin for now until to go see her primary physician with a repeat BMP to make sure kidney functions are improving. New Medications: Amoxicillin & Pot Clavulanate (Amoxicillin/Potassium Cla) 500 Mg Tab 1 TAB PO BID, #14 TAB Hydrocodone-Acetaminophen (Hydrocodone Bitartrate/AC 5-325 mg) 1 Tab Tab 1 TAB PO Q8HP PRN, #10 TAB Naloxone HCl (Narcan) 4 Mg/0.1 Ml Spr 4 MG NA NATURAL FABRICATOR, #2 SPRAY Changed Medications: Albuterol Sulfate (Ventolin Mdi) 90 Mcg Ih 90 MCG IN TID PRN, #1 INH (Changed from: Removed Days) Continued Medications: Amlodipine Besylate (Amlodipine Besylate) 10 Mg Tab 1 TAB PO DAILY for 90 Days, #90 TAB (This prescription has been renewed) Aspirin (Aspirin Low Dose) 81 Mg Chw 1 TAB PO DAILY for 90 Days, #90 TAB.CHEW (This prescription has been renewed) Atorvastatin Calcium (Lipitor) 40 Mg Tab 1 TAB PO DAILY for 90 Days, #90 TAB (This prescription has been renewed) Carvedilol (Carvedilol) 6.25 Mg Tab 1 TAB PO BID for 30 Days, #60 TAB 1 Refill (This prescription has been renewed) Empagliflozin (Jardiance) 10 Mg Tab 1 TAB PO DAILY for 90 Days, #90 TAB (This prescription has been renewed) Ferrous Sulfate (Ferrous Sulfate) 325 Mg Tab 325 MG PO DAILY for 30 Days, #30 TAB 2 Refills Furosemide (Furosemide) 40 Mg Tab 1 TAB PO DAILY for 90 Days, #90 Gabapentin (Gabapentin) 100 Mg Cap 400 MG PO BID for 90 Days, #180 Insulin Glargine (Lantus Solostar) 100 Unit/Ml Inj 24 UNIT SC QAM for 30 Days, #9 INJ Please take 24 unit Lantus at QAM daily. Insulin Lispro (Humalog Kwikpen) 100 Unit/Ml Inj 10 UNIT SC TID for 30 Days, #9 INJ Please take 8 units before each meal 3 times aday. Spironolactone (Spironolactone) 25 Mg Tab 1 TAB PO DAILY for 30 Days, #30 TAB (This prescription has been renewed) Discontinued Medications: Cephalexin (Keflex Capsule) 250 Mg Cp 1 CAP PO QID for 5 Days, #28 CAP Glipizide (Glipizide) 10 Mg Tab 10 MG PO BID for 30 Days, MG Metformin Hydrochloride (Metformin Hcl) 500 Mg Tab 500 MG PO IBID for 30 Days, MG Scheduled Amlodipine Besylate (Amlodipine Besylate), 1 TAB PO DAILY Amoxicillin & Pot Clavulanate (Amoxicillin/Potassium Cla), 1 TAB PO BID Aspirin (Aspirin Low Dose), 1 TAB PO DAILY Atorvastatin Calcium (Lipitor), 1 TAB PO DAILY Carvedilol (Carvedilol), 1 TAB PO BID Empagliflozin (Jardiance), 1 TAB PO DAILY Ferrous Sulfate (Ferrous Sulfate), 325 MG PO DAILY Furosemide (Furosemide), 1 TAB PO DAILY, (Reported) Gabapentin (Gabapentin), 400 MG PO BID, (Reported) Insulin Glargine (Lantus Solostar), 24 UNIT SC QAM Insulin Lispro (Humalog Kwikpen), 10 UNIT SC TID Metoclopramide Hcl (Metoclopramide Hcl), 1 TAB PO TID, (Reported) Naloxone HCl (Narcan), 4 MG NA NATURAL FABRICATOR Pantoprazole Sodium Sesquihydr (Protonix), 1 TAB PO DAILY, (Reported) Spironolactone (Spironolactone), 1 TAB PO DAILY Scheduled PRN Albuterol Sulfate (Ventolin Mdi), 90 MCG IN TID PRN Hydrocodone-Acetaminophen (Hydrocodone Bitartrate/AC 5-325 mg), 1 TAB PO Q8HP PRN Discontinued Medications Cephalexin (Keflex Capsule), 1 CAP PO QID Glipizide (Glipizide), 10 MG PO BID, (Reported) Metformin Hydrochloride (Metformin Hcl), 500 MG PO IBID, (Reported) Discharge Statement: "Patient was advised to return to the ER or call 911 if any headaches, dizziness, shortness of breath, chest pain, abdominal pain, bleeding, fevers, or worsening of medical condition. Patient was counseled about treatment plan, medications, possible side effects, patientverbalized understanding. All questions were answered to the best of my ability. This discharge took greater then 30 minutes in planning, reviewing documentation, counseling the patient, and discussing with other team members." ASSESSMENT ASSESSMENT Assessment 49-year-old female with a known history of diabetes mellitus type 2, hypertension, CHF, CKD presented to the hospital with a left-sided neck pain with a insect bite found to have 1. Left neck cellulitis 2. Hypertensive urgency, improved 3. Hyperglycemia in the setting of diabetes mellitus type 2 insulin dependent 4. Congestive heart failure unspecified currently not in exacerbation 5. Acute kidney injury with a underlying CKD 6. Dyslipidemia Date of Service: Aug 15, 2025 Billing Provider: LUAN OSMAN MD Common Visit Codes: 32771-CUO/OBS DISCH DAY >30min LUAN OSMAN MD Aug 15, 2025 15:02
== END 2025-08-15 17:16 | disposition home or self-care (01) | DRG 383 ==
LOC: ER 16:18 → OVERFLOW 22:46 → TELE-EAST 08-10 17:08
PROVIDERS: ADMIT Internal Medicine; ATTEND Internal Medicine
DX: L03.221 Cellulitis of neck (principal); N17.0 Acute kidney failure with tubular necrosis; I13.0 Hypertensive heart and chronic kidney disease with heart failure and stage 1 through stage 4 chronic kidney disease, or unspecified chronic kidney disease; I50.32 Chronic diastolic (congestive) heart failure; L02.11 Cutaneous abscess of neck; E11.65 Type 2 diabetes mellitus with hyperglycemia; N18.9 Chronic kidney disease, unspecified; I16.0 Hypertensive urgency; S10.96XA Insect bite of unspecified part of neck, initial encounter; E11.22 Type 2 diabetes mellitus with diabetic chronic kidney disease; E78.5 Hyperlipidemia, unspecified; F17.210 Nicotine dependence, cigarettes, uncomplicated; R22.1 Localized swelling, mass and lump, neck; Z88.5 Allergy status to narcotic agent; Z88.1 Allergy status to other antibiotic agents; I25.2 Old myocardial infarction; Z87.442 Personal history of urinary calculi; Z90.49 Acquired absence of other specified parts of digestive tract; Z83.3 Family history of diabetes mellitus; Z82.49 Family history of ischemic heart disease and other diseases of the circulatory system; Z82.3 Family history of stroke; Z80.42 Family history of malignant neoplasm of prostate; Z81.1 Family history of alcohol abuse and dependence; Z79.4 Long term (current) use of insulin
CPT/HCPCS: 36415; 70450; 70490; 71045; 80048; 80053; 80202; 80307; 81001; 82565; 82962; 83605; 83880; 84484; 85025; 86141; 87040; 93005; 99291; G0378; J1815; J2470; J2543

== ENCOUNTER 2025-09-04 09:16 | Inpatient (IN) | payer MEDICAID ==
[~2025-09-04] VITALS: Ht 154.9 cm; Wt 79.7 kg
[~2025-09-04 09:16] MED LIST changes: +AMOX500T92 PO; -CEPH250C PO; -GLIP10TA9 PO; +HYDR-4902 PO; -METF-370 PO; +NALO4SPR2
[2025-09-04 10:23] LABS: Hemoglobin 11.1 g/dL (12.2-16.2)
[2025-09-04 10:24] LABS: Hematocrit 33.8 % (36.0-46.0); Mean Corpuscular Hemoglobin 28.7 pg (28.0-32.0); Mean Corpuscular Volume 87.4 fL (80.0-100.0); Nucleated Red Blood Cells % 0.1 %
[2025-09-04 10:36] LABS: INR 0.97 (0.9-1.15); Prothrombin Time 10.3 sec (9.3-11.8)
[2025-09-04 10:44] LABS: Albumin 3.7 g/dL (3.2-4.8); Alkaline Phosphatase 94 U/L (46-116); Anion Gap 9 (5-15); BUN/Creatinine Ratio 7.9 (10.0-20.0); Blood Urea Nitrogen 21 mg/dL (9-23); Calcium 8.9 mg/dL (8.7-10.4); Carbon Dioxide 23 mmol/L (20-31); Lipase 35 U/L (12-53); Potassium 4.2 mmol/L (3.5-5.1); Sodium 140 mmol/L (136-145); Total Protein 6.6 g/dL (5.7-8.2)
[2025-09-04 10:48] LABS: Urine Protein, UAD 3+ (Negative)
[2025-09-04 10:50] LABS: Alanine Aminotransferase 9 U/L (7-40); Bilirubin, Total 0.2 mg/dL (0.2-1.0); Chloride 108 mmol/L (98-107); Glucose 212 mg/dL (74-106)
--- NOTE | 2025-09-04 10:54 | ED.PDOC ---
GI ASSESSMENT HPI Comments A 49 YEAR OLD FEMALE PRESENTS TO THE ED WITH COMPLAINT OF ABDOMINAL PAIN. PATIENT REPORTS THAT SHE HAS BEEN EXPERIENCING LOWER ABDOMINAL PAIN WITH ASSOCIATED NAUSEA, VOMITING, DYSURIA, AND BLACK STOOL FOR THE PAST 2 DAYS. THE PAIN LEVEL IS 8/10 AT THIS TIME OF CARE. ALSO, PT C/O HIGH BLOOD PRESSURE BECAUSE SHE DID NOT TAKE HER HTN MEDICATION FOR ONE WEEK. PATIENT DENIES FEVER, CHILLS, SHORTNESS OF BREATH, CHEST PAIN, HEMATURIA, FLANK PAIN, HEADACHE, OR OTHER COMPLAINTS. NO OTHER SYMPTOMS OR MODIFYING FACTORS AT THIS TIME. PATIENT IS ALERT, ORIENTED X 4, AND HAS STEADY GAIT. 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, #2 SPRAY Prov:LUAN OSMAN MD 08/15/25 Hydrocodone-Acetaminophen (Hydrocodone Bitartrate/AC 5-325 mg) 1 Tab Tab, 1 TAB PO Q8HP PRN, #10 TAB Prov:LUAN OSMAN MD 08/15/25 Amoxicillin & Pot Clavulanate (Amoxicillin/Potassium Cla) 500 Mg Tab, 1 TAB PO BID, #14 TAB Prov:LUAN OSMAN MD 08/15/25 Carvedilol (Carvedilol) 6.25 Mg Tab, 1 TAB PO BID for 30 Days, #60 TAB 1 Refill Prov:LUAN OSMAN MD 08/15/25 Albuterol Sulfate (VENTOLIN MDI) 90 Mcg Ih, 90 MCG IN TID PRN, #1 INH Prov:LUAN OSMAN MD 08/15/25 Spironolactone (Spironolactone) 25 Mg Tab, 1 TAB PO DAILY for 30 Days, #30 TAB Prov:LUAN OSMAN MD 08/15/25 Amlodipine Besylate (Amlodipine Besylate) 10 Mg Tab, 1 TAB PO DAILY for 90 Days, #90 TAB Prov:LUAN OSMAN MD 08/15/25 Empagliflozin (Jardiance) 10 Mg Tab, 1 TAB PO DAILY for 90 Days, #90 TAB Prov:LUAN OSMAN MD 08/15/25 Atorvastatin Calcium (Lipitor) 40 Mg Tab, 1 TAB PO DAILY for 90 Days, #90 TAB Prov:LUAN OSMAN MD 08/15/25 Aspirin (Aspirin Low Dose) 81 Mg Chw, 1 TAB PO DAILY for 90 Days, #90 TAB.CHEW Prov:LUAN OSMAN MD 08/15/25 Insulin Lispro (Humalog Kwikpen) 100 Unit/Ml Inj, 10 UNIT SC TID for 30 Days, #9 INJ Please take 8 units before each meal 3 times aday. Prov:DERIK AVINA 04/19/25 Insulin Glargine (Lantus Solostar) 100 Unit/Ml Inj, 24 UNIT SC QAM for 30 Days, #9 INJ Please take 24 unit Lantus at QAM daily. Prov:DERIK AVINA 04/19/25 Ferrous Sulfate (Ferrous Sulfate) 325 Mg Tab, 325 MG PO DAILY for 30 Days, #30 TAB 2 Refills Prov:ANDREA JOSHUA 04/07/24 Reported Medications Metoprolol Succinate (Metoprolol Succinate Er) 50 Mg Tab, 1 TAB PO DAILY, #30 TAB 5 Refills 09/05/25 Amlodipine Besylate (NORVASC TABLET) 5 Mg Tb, 1 TAB PO DAILY, #30 TAB 5 Refills 09/05/25 Metformin Hydrochloride (Metformin Hcl) 500 Mg Tab, 1 TAB PO BID, #60 TAB 3 Refills 09/05/25 Pantoprazole Sodium Sesquihydr (Protonix) 40 Mg Tab, 1 TAB PO DAILY for 90 Days, #90 09/04/24 Metoclopramide Hcl (Metoclopramide Hcl) 5 Mg Tab, 1 TAB PO TID for 90 Days, #270 09/04/24 Gabapentin (Gabapentin) 100 Mg Cap, 400 MG PO BID for 90 Days, #180 09/04/24 Furosemide (Furosemide) 40 Mg Tab, 1 TAB PO DAILY for 90 Days, #90 09/04/24 Information Source: Patient Mode of Arrival: Ambulatory Timing: Days Duration: Since onset, Days Prehospital treatment: None Quality: Sharp, Colicky Vomitus: Food Particles, None Stool: Black Severity: Moderate Recent: None Recent Hx of: None Pain Location: RLQ, LLQ, Suprapubic Modifying Factors: Nothing Associated sign and symptoms: Nausea, Vomiting, Melena, Abdominal Pain Past Medical History PAST MEDICAL HISTORY: CHF, CKF, DM, HTN, Kidney Stones, DE Surgical History: Appendectomy, Cholecystectomy, 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 FINAL History: No Pertinent ASSEMBLER FINAL History Family History Family History: Unknown Social History Smoker: Cigarettes, Less Than 1 Pack/Day Alcohol: Heavy Drugs: Marijuana Lives In: Home Constitutional: reports: others (ANXIOUS ); denies: chills, diaphoresis, fatigue, fever, malaise, sweats, weakness EENTM: denies: blurred vision, double vision, ear bleeding, ear discharge, ear drainage, ear pain, ear ringing, eye pain, eye redness, hearing loss, mouth pain, mouth swelling, nasal discharge, nose bleeding, nose congestion, nose pain, photophobia, tearing, throat pain, throat swelling, voice changes, others Respiratory: denies: cough, hemoptysis, orthopnea, SOB at rest, shortness of breath, SOB with excertion, stridor, wheezing, others Cardiovascular: denies: chest pain, dizzy spells, diaphoresis, Dyspnea on exertion, edema, irregular heart beat, left arm pain, lightheadedness, palpitations, PND, syncope, others Gastrointestinal: reports: abdominal pain, melena, nausea, vomiting; denies: abdomen distended, blood streaked bowels, constipated, diarrhea, dysphagia, difficulty swallowing, hematemesis, poor appetite, poor fluid intake, rectal bleeding, rectal pain, others Genitourinary: reports: dysuria; denies: abnormal vagina bleeding, burning, dyspareunia, flank pain, frequency, hematuria, incontinence, pain, , vagina discharge, urgency, others Neurological: denies: dizziness, fainting, headache, left sided numbness, left sided weakness, numbness, paresthesia, pre-existing deficit, right sided numbness, right sided weakness, seizure, speech problems, tingling, tremors, weakness, others Musculoskeletal: denies: back pain, gout, joint pain, joint swelling, muscle pain, muscle stiffness, neck pain, others Integumetry: denies: bruises, change in color, change in hair/nails, dryness, laceration, lesions, lumps, rash, wounds, others Allergic/Immunocompromised: denies: Difficulty Healing, Frequent Infections, Hives, Itching, others Hematologic/Lymphatic: denies: anemia, blood clots, easy bleeding, easy bruising, swollen glands, others Endocrine: denies: excessive hunger, excessive sweating, excessive thirst, excessive urination, flushing, intolerance to cold, intolerance to heat, unexplained weight gain, unexplained weight loss, others Psychiatric: denies: anxiety, bipolar disorder, depression, hopeless, panic disorder, schizophrenia, sleepless, suicidal, others All Other Systems: Reviewed and Negative Physical Exam General Appearance: Mild Distress, Normal HEENT: Normal ENT Inspection, PERRL/EOMI, Pharynx Normal, TMs Normal Neck: Full Range of Motion, Non-Tender, Normal, Normal Inspection Respiratory: Chest Non-Tender, Lungs Clear, No Accessory Muscle Use, No Respiratory Distress, Normal Breath Sounds Cardiovascular: No Edema, No JVD, No Murmur, No Gallop, Normal Peripheral Pulses, Regular Rate/Rhythm Breast Exam: Deferred Gastrointestinal: LLQ, No Organomegaly, No Pulsatile Mass, Normal Bowel Sounds, RLQ, Soft, Tenderness (LOWER ABD WITH GUARDING, NO REBOUND TENDERNESS. ) Genitalia: Deferred Pelvic: Deferred Rectal: Heme negative stool, Normal rectal tone (NO RECTAL BLEEDING AND BLOOD CLOTS, NO BLACK STOOL. ) Extremities: No calf tenderness, Normal capillary refill, Normal inspection, Normal range of motion, Non-tender, No pedal edema Musculoskeletal : Apperance: Normal Neurologic: Alert, service provider II-XII nml as Tested, No Motor Deficits, Normal Affect, Normal Mood, No Sensory Deficits Cerebellar Function: Normal Reflexes: Normal Skin: Dry, Normal Color, Warm Peripheral Pulses: 2+ carotid (R), 2+ carotid (L) Lymphatic: No Adenopathy Was a procedure done? Was a procedure done?: No GI differential Dx Differential Diagnosis: Appendicitis, Diverticular disease, Gastritis/PUD, Gastroenteritis, Inflammatory BD, UTI, Urolithiasis X-Ray, Labs, Meds, VS Vital Signs Date Time Temp Pulse Resp B/P (MAP) Pulse Ox O2 Delivery O2 Flow Rate FiO2 09/04/25 12:52 98.4 80 17 200/93 (128) 99 98.4 09/04/25 11:32 200/93 09/04/25 10:32 234/93 09/04/25 09:17 98.2 78 15 218/71 99 98.2 Lab Test 09/04/25 10:18 09/04/25 10:02 09/04/25 10:00 Range/Units Stool Occult Blood Negative Negative Stool Occult Blood Sample #3 Negative Urine Color Light-yellow Yellow Urine Clarity Clear Clear Urine pH 8.0 5.0-9.0 Urine Specific [place] 1.013 1.001-1.035 Urine Protein 3+ H Negative Urine Ketones Negative Negative Urine Blood 1+ H Negative /uL Urine Nitrite Negative Negative Urine Bilirubin Negative Negative Urine Urobilinogen Normal Negative mg/dL Urine Leukocyte Esterase Trace Negative /uL Urine RBC 4 0 - 4 /hpf Urine Microscopic WBC 35 H 0-5 /HPF Urine Squamous Epithelial Cells Few <5 /hpf Urine Bacteria None seen None Seen /hpf Urine Glucose 3+ H Normal mg/dL Urine Test Negative Negative Urine Opiates Screen Neg NEGATIVE Urine Fentanyl Screen Neg NEGATIVE Urine Barbiturates Screen Neg NEGATIVE Urine Phencyclidine Screen Neg NEGATIVE Urine Amphetamines Screen Neg NEGATIVE Urine Benzodiazepines Screen Neg NEGATIVE Urine Cocaine Screen Neg NEGATIVE Urine Cannabinoids Screen Neg NEGATIVE White Blood Count 7.8 4.4-10.8 10^3/uL Red Blood Count 3.87 L 4.0-5.20 10^6/uL Hemoglobin 11.1 L 12.2-16.2 g/dL Hematocrit 33.8 L 36.0-46.0 % Mean Corpuscular Volume 87.4 80.0-100.0 fL Mean Corpuscular Hemoglobin 28.7 28.0-32.0 pg Mean Corpuscular Hemoglobin Concent 32.8 32.0-36.0 g/dL Red Cell Distribution Width 16.5 H 11.8-14.3 % Platelet Count 491 H 140-450 10^3/uL Mean Platelet Volume 8.7 6.9-10.8 fL Neutrophils (%) (Auto) 62.8 37.0-80.0 % Lymphocytes (%) (Auto) 29.1 10.0-50.0 % Monocytes (%) (Auto) 4.9 0.0-12.0 % Eosinophils (%) (Auto) 1.9 0.0-7.0 % Basophils (%) (Auto) 1.3 0.0-2.0 % Neutrophils # (Auto) 4.9 1.6-8.6 10 ^3/uL Lymphocytes # (Auto) 2.3 0.4-5.4 10 ^3/uL Monocytes # (Auto) 0.4 0-1.3 10 ^3/uL Eosinophils # (Auto) 0.1 0-0.8 10 ^3/uL Basophils # (Auto) 0.1 0-0.2 10 ^3/uL Nucleated Red Blood Cells 0.1 % Prothrombin Time 10.3 9.3-11.8 sec Prothrombin Time INR 0.97 0.9-1.15 Sodium Level 140 136-145 mmol/L Potassium Level 4.2 3.5-5.1 mmol/L Chloride Level 108 H 98-107 mmol/L Carbon Dioxide Level 23 20-31 mmol/L Anion Gap 9 5-15 Blood Urea Nitrogen 21 9-23 mg/dL Creatinine 2.65 H 0.550-1.02 mg/dL Glomerular Filtration Rate Calc 21 >90 mL/min BUN/Creatinine Ratio 7.9 L 10.0-20.0 Serum Glucose 212 H 74-106 mg/dL Calcium Level 8.9 8.7-10.4 mg/dL Total Bilirubin 0.2 0.2-1.0 mg/dL Aspartate Amino Transferase (AST) 14 13-40 U/L Alanine Aminotransferase (ALT) 9 7-40 U/L Alkaline Phosphatase 94 46-116 U/L Troponin I High Sensitivity 12 </=34 ng/L B-Type Natriuretic Peptide 182.35 0-100 pg/mL Total Protein 6.6 5.7-8.2 g/dL Albumin 3.7 3.2-4.8 g/dL Lipase 35 12-53 U/L Beta HCG, Quantitative 2.0 1.5-4.2 mIU/mL Current Medications Medications (Trade) Dose Ordered Sig/Mariel Route Start Time Stop Time Status Last Admin Clonidine HCl (Catapres Tablet) 0.2 mg ONCE ONCE PO 09/04/25 10:15 09/04/25 10:16 DC 09/04/25 10:32 Morphine Sulfate 4 mg ONCE ONCE IV 09/04/25 13:30 09/04/25 13:31 DC 09/04/25 20:01 Ondansetron HCl (Zofran) 4 mg ONCE ONCE IV 09/04/25 13:30 09/04/25 13:31 DC 09/04/25 20:[address] [address] Ph: [phone] DIAGNOSTIC IMAGING Diagnostic Imaging Report : [id number] Signed PATIENT: NIYA GAMEZACCT: [id number] UNIT: [id number] : 1975 LOC: ER ROOM / BED: / AGE / SEX: 49 / F ADM STATUS: REG ER SERVICE 1003 ORDERING PHYSICIAN: SILVIANO REILLY PROCEDURE(s): ABPL - CT AB PEL WO CON-NO ORAL OR IV REASON: LOWER ABD PAIN WITH BLOOD IN THE STOOL ORDER NUMBER(s): [id number], ACCESSION NUMBER(s): [id number] EXAM DESCRIPTION: CT CT AB PEL WO CON-NO ORAL OR IV CLINICAL HISTORY: LOWER ABD PAIN WITH BLOOD IN THE STOOL COMPARISON: CT CT AB PEL WO CON-NO ORAL OR IV on DOS: 05/09/25, CT CT AB PEL WO CON-NO ORAL OR IV on DOS: 10/23/24, US PELVIC on DOS: 07/20/24, CT CT AB PEL WO CON-NO ORAL OR IV on DOS: 07/19/24, US PELVIC on DOS: 11/20/23 TECHNIQUE: CT abdomen and pelvis without IV contrast was performed. Coronal and sagittal MPR images were generated.CTDI/ DLP = / Dose reduction technique with one or more of the following methods was performed: Automated exposure control, adjustment of the mA and/or kV according to patient size, use of iterative reconstruction technique FINDINGS: Lower chest: Clear lung bases. Multivessel coronary artery disease. Liver: Homogenous in attenuation. . Biliary: Status post cholecystectomy. No biliary ductal dilatation. Pancreas: No fat stranding or focal lesion. Spleen: Normal in size.. Adrenal glands: No nodularity. Kidneys: No nephrolithiasis. No hydroureteronephrosis. . Bladder: Underdistended, limiting evaluation. Reproductive organs: A couple cysts at the cervix measuring up to 3.8 cm, similar to prior and likely nabothian cysts. 2cm left adnexal cyst. Bowel: No bowel wall thickening or dilatation. Status post appendectomy.. Peritoneum: No free fluid. No free air. Vessels: Normal caliber abdominal aorta. Mild to moderate atherosclerotic calcifications.. Lymph nodes: No suspicious lymph nodes. Soft tissues: Unremarkable. . Osseous structures: No acute fracture or subluxation. No suspicious osseous lesions. IMPRESSION: 1. No acute abnormality within the abdomen or pelvis. 2. A 2 cm left adnexal cyst and a couple prominent nabothian cysts measuring up to 3.8 cm. Recommend further evaluation with pelvic ultrasound. 3. Coronary artery disease. ATED BY: DAVID GANNON MD DICTATED DATE/TIME: 09/04/251127 SIGNED BY: DAVID GANNON MD SIGNED DATE/TIME: 09/04/251127 CC: X-Ray, Labs, Meds, VS Comment EXTERNAL MEDICAL RECORDS REVIEWED: [NONE] INDEPENDENT HISTORIANS: [NONE] SOCIAL DETERMINANTS OF HEALTH: [NONE] LABS ORDERED: BNP, LIPASE, CBC, CMP, PT, PTT, STOOL OCCULT, UA REVIEWED AND INTERPRETED RESULTS: CT ABD/PEL IMAGING ORDERED: CT ABD/PEL TREATMENTS ORDERED: CLONIDINE 0.2MG PO, HYDRALAZINE 20MG IV, ZOFRAN 4MG IV, MORPHINE 4MG IV PROCEDURES PERFORMED: NONE CRITICAL CARE TIME: NONE I HAVE DISCUSSED THE PATIENT WITH THE ATTENDING PHYSICIAN DR. LEWIS AND HE AGREES WITH THE PATIENT'S PLAN OF CARE AND DISPOSITION. PATIENT IS TO BE ADMITTED TO THE HOSPITAL FOR INTRACTABLE ABDOMINAL PAIN AND ACCELERATED HYPERTENSION. Time of 1ST Reevaluation: 11:20 Reevaluation 1ST: Unchanged Patient Education/Counseling: Diagnosis, Treatment Family Education/Counseling: Diagnosis, Treatment SEPSIS Sepsis Screen Date sepsis recognized/suspect: Sep 04, 2025 Time Sepsis recognized/suspect: 918 Recent Procedure: No On Antibiotic Therapy: No Respiratory Rate >20: No Heart Rate >90: No Temp<36 C (96.8 F) or >38.3 C: No SBP <90 or MAP <65 mmHG: No New Acute Mental Status Change: No Is the patient on CPAP, BIPAP,: No Physician Orders Ct Ab Pel Wo Con-No Oral Or Iv (09/04/25 10:03) Heplock Iv (09/04/25 ) Vital Signs Date Time Temp Pulse Resp B/P (MAP) Pulse Ox O2 Delivery O2 Flow Rate FiO2 09/04/25 12:52 98.4 80 17 200/93 (128) 99 98.4 09/04/25 11:32 200/93 09/04/25 10:32 234/93 09/04/25 09:17 98.2 78 15 218/71 99 98.2 Laboratory Tests Test 09/04/25 10:00 White Blood Count 7.8 10^3/uL (4.4-10.8) Departure 1 Departure Time of Disposition: 13:24 Impression: Primary Impression: Intractable abdominal pain Additional Impressions: Accelerated hypertension Adnexal cyst Disposition: ADMITTED INPATIENT Condition: Serious Critical Care Note Critical Care Time?: No Stability Stability form required: Yes Unstable for transfer: Requires medication, ED Physician Assesment, Possible rapid decline Heart Score Heart Score: Heart Score Response (Comments) Value History N/A 0 EKG N/A 0 Age N/A 0 Risk Factors N/A 0 Troponin N/A 0 Total 0 I personally scribed for SILVIANO REILLY ([email or web address]) on 09/04/25 at 10:54. Electronically submitted by David Condon ([email or web address]). I personally scribed for SILVIANO REILLY ([email or web address]) on 09/04/25 at 13:01. Electronically submitted by David Condon ([email or web address]). I personally scribed for SILVIANO REILLY ([email or web address]) on 09/04/25 at 13:25. Electronically submitted by David Condon ([email or web address]). SILVIANO REILLY Sep 04, 2025 10:54
--- NOTE | 2025-09-04 11:31 | DVH ---
EXAM DESCRIPTION: CT CT AB PEL WO CON-NO ORAL OR IV CLINICAL HISTORY: LOWER ABD PAIN WITH BLOOD IN THE STOOL COMPARISON: CT CT AB PEL WO CON-NO ORAL OR IV on DOS: 05/09/25, CT CT AB PEL WO CON-NO ORAL OR IV on DOS: 10/23/24, US PELVIC on DOS: 07/20/24, CT CT AB PEL WO CON-NO ORAL OR IV on DOS: 07/19/24, US PELVIC on DOS: 11/20/23 TECHNIQUE: CT abdomen and pelvis without IV contrast was performed. Coronal and sagittal MPR images were generated.CTDI/ DLP = / Dose reduction technique with one or more of the following methods was performed: Automated exposure control, adjustment of the mA and/or kV according to patient size, use of iterative reconstruction technique FINDINGS: Lower chest: Clear lung bases. Multivessel coronary artery disease. Liver: Homogenous in attenuation. . Biliary: Status post cholecystectomy. No biliary ductal dilatation. Pancreas: No fat stranding or focal lesion. Spleen: Normal in size.. Adrenal glands: No nodularity. Kidneys: No nephrolithiasis. No hydroureteronephrosis. . Bladder: Underdistended, limiting evaluation. Reproductive organs: A couple cysts at the cervix measuring up to 3.8 cm, similar to prior and likely nabothian cysts. 2cm left adnexal cyst. Bowel: No bowel wall thickening or dilatation. Status post appendectomy.. Peritoneum: No free fluid. No free air. Vessels: Normal caliber abdominal aorta. Mild to moderate atherosclerotic calcifications.. Lymph nodes: No suspicious lymph nodes. Soft tissues: Unremarkable. . Osseous structures: No acute fracture or subluxation. No suspicious osseous lesions. IMPRESSION: 1. No acute abnormality within the abdomen or pelvis. 2. A 2 cm left adnexal cyst and a couple prominent nabothian cysts measuring up to 3.8 cm. Recommend further evaluation with pelvic ultrasound. 3. Coronary artery disease.
[2025-09-04] MEDS: hydrALAZINE HCL 20 MG/ML VL IV ONE ×2 (13:30→19:40)
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
[2025-09-04] MEDS ORDERED: DEXTROSE (50%) 50ML SYRG IV PRN (15:00)
[2025-09-04] MEDS ORDERED: ONDANSETRON HCL 4 MG/2 ML VIAL IV PRN (15:00)
[2025-09-04 15:43] VITALS: BP 200/93; PULSE 80; RESP 17; TEMP 98.4; O2SAT 99
[2025-09-04] MEDS: FUROSEMIDE 40 MG TAB PO SCH (16:00)
[2025-09-04] MEDS ORDERED: hydrALAZINE HCL 20 MG/ML VL IV PRN (16:00)
[2025-09-04] MEDS: SPIRONOLACTONE 25 MG TAB PO SCH (16:00)
[2025-09-04 16:24] LABS: INR 0.97 (0.9-1.15); Partial Thromboplastin Time 32.2 SEC (24.5-34.5); Prothrombin Time 10.3 sec (9.3-11.8)
--- NOTE | 2025-09-04 16:26 | DVH ---
ULTRASOUND OF THE PELVIS (NON-OB) FEMALE INDICATION: ovarian cyst. . Pelvic pain. Postmenopausal. COMPARISON: CT abdomen/ pelvis 09/04/2025; 05/09/2025. TECHNIQUE AND FINDINGS: Transabdominal Ultrasound: Transabdominal ultrasound examination was performed. Endovaginal Ultrasound: Endovaginal ultrasound was performed for improved visualization of pelvic structures. Visualization of the pelvic structures is suboptimal secondary to large body habitus. UTERUS: The uterus measures 8.5 x 3.4 x 4.5 cm. The endometrial stripe is 4 mm in thickness, within normal limits. There are large anechoic cystic structures within the cervix measuring 2.1 x 1.7 x 1.2 cm and 4.2 x 2.9 x 3.3 cm, possibly nabothian cysts. RIGHT OVARY: The right ovary is not seen. No right adnexal mass is identified. LEFT OVARY: The left ovary measures 3.1 x 2.3 x 3.5 cm. The left ovary demonstrates expected Doppler flow. There is an anechoic cyst within the left ovary measuring 2.7 x 1.8 x 2.8 cm without aggressive features. There is no evidence of abnormal adnexal mass. CUL de SAC: No evidence of pelvic free fluid or mass. IMPRESSION: The right ovary is not seen. Small left ovarian cyst measuring 2.8 cm. No dedicated follow-up is recommended for a simple appearing cyst under 3 cm. Large cystic structures within the cervix that may represent nabothian cysts. Although these are larger than expected for nabothian cysts, they are described on reports as remote as a CT of the abdomen / pelvis on 01/29/2022 and are likely benign. COMMENT: Both transabdominal ultrasound and endovaginal ultrasound were performed; the above impression reflects the composite impression from these two studies. No additional comment.
--- NOTE | 2025-09-04 17:07 | DVH ---
CHEST RADIOGRAPH INDICATION: chest pain TECHNIQUE: Single frontal view of the chest was obtained COMPARISON: XY CHEST PORTABLE on DOS: 08/09/25, XY CHEST XRAY 1 VIEW on DOS: 05/11/25, XY CHEST PORTABLE on DOS: 12/14/24, XY CHEST PORTABLE on DOS: 12/11/24, XY CHEST XRAY 1 VIEW on DOS: 10/23/24 FINDINGS/IMPRESSION: The lungs are clear. The cardiomediastinal silhouette is unremarkable. No pleural effusion or pneumothorax. No acute osseous abnormality.
[2025-09-04] MEDS: ACCU-CHEK COMFORT CURVE STRIP VI SCH (19:14)
[2025-09-04] MEDS: LABETALOL HCL 20 MG/4 ML VL IV ONE (19:38)
[2025-09-04] MEDS: ONDANSETRON HCL 4 MG/2 ML VIAL IV ONE (20:01)
[2025-09-04] MEDS: PANTOPRAZOLE 40 MG/10 ML VIAL INJ IV ONE (20:01)
[2025-09-04] MEDS: InsuLIN REG 1unit/0.01ml Soln (100units/ml) SC SCH (20:01)
[2025-09-04] MEDS: MORPHINE SULFATE 4 MG/ML SYR/VIAL IV ONE (20:01)
[2025-09-04 20:03] VITALS: PULSE 70; RESP 20; O2SAT 99
[2025-09-04 20:51] VITALS: O2SAT 98
[2025-09-04 21:44] LABS: Amphetamine Screen, Urine Neg (NEGATIVE); Barbiturate Scree,Urine Neg (NEGATIVE); Benzodiazephine Screen, Urine Neg (NEGATIVE); Cannabinoid Screen, Urine Neg (NEGATIVE); Cocaine Screen, Urine Neg (NEGATIVE); Opiate Scree,Urine Neg (NEGATIVE); Phencyclidine Screen, Urine Neg (NEGATIVE)
[2025-09-04] MEDS: CARVEDILOL 3.125 MG TAB PO SCH (22:00)
[2025-09-04] MEDS ORDERED: CARVEDILOL 3.125 MG TAB PO SCH (22:00)
[2025-09-05] VITALS (10 sets, daily range): BP systolic 112–138; BP diastolic 56–80; PULSE 57–85; RESP 16–19; TEMP 97.3–97.8; O2SAT 95–100
[2025-09-05] MEDS: MORPHINE SULFATE 4 MG/ML SYR/VIAL IV PRN (02:51)
[2025-09-05] MEDS ORDERED: AML5T PO (06:12)
[2025-09-05] MEDS ORDERED: METF-370 PO (06:12)
[2025-09-05] MEDS ORDERED: METO-289 PO (06:12)
[2025-09-05] MEDS ORDERED: DEXTROSE (50%) 50ML SYRG IV PRN (09:30)
[2025-09-05] MEDS: PANTOPRAZOLE 40 MG/10 ML VIAL INJ IV SCH (09:32)
[2025-09-05] MEDS ORDERED: SPIRONOLACTONE 25 MG TAB PO SCH (10:00)
[2025-09-05] MEDS ORDERED: FUROSEMIDE 40 MG TAB PO SCH (10:00)
[2025-09-05] MEDS: POLYETHYLENE GLYCOL 17 GM PWDR PO SCH (10:02)
[2025-09-05] MEDS: EMPAGLIFLOZIN 10 MG TAB PO SCH (10:05)
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
[2025-09-05] MEDS: ACCU-CHEK COMFORT CURVE STRIP VI SCH (12:12)
[2025-09-05] MEDS: InsuLIN REG 1unit/0.01ml Soln (100units/ml) SC SCH (12:14)
--- NOTE | 2025-09-05 13:36 | DVHINCON2 ---
GI Consult Consult Note GI consult note Date of Consultation: 09/05/2025 Chief Complaint: Melena, dysphagia, evaluate for EGD Referring Physician: Dr. Carolina H&P: 49-year-old female with past medical history of CHF, CKD, DM, HTN, kidney stones, CA, gastritis admitted with complains of epigastric pain with burning sensation and black stool, which is worsening for the past one-week. Patient has had similar symptoms on and off for the past one year status post EGD 11/22/2023 and 05/10/[address] Hauser. No nausea or vomiting denies hematemesis . Patient was complaining of difficulty swallowing but able to tolerate a regular diet at this time no colonoscopy in past DATE OF OPERATION: 05/10/25 PROCEDURE: Upper Endoscopy with biopsy. PREOPERATIVE INDICATION: The patient is a 49 -year-old female undergoing endoscopy for epigastric pain and questionable history of melena POSTOPERATIVE DIAGNOSES: 1. 0.5 cm sliding-type hiatal hernia with slightly irregular squamocolumnar junction no significant erosive esophagitis 2. Mild gastritis otherwise normal examination up to the 2nd and 3rd part of the duodenum PROCEDURE PERFORMED BY: Jazz Hauser Pathology Benign duodenal mucosa, no dysplasia or malignancy Mild chronic inactive gastritis No Helicobacter pylori seen Past Medical History: CHF, CKD, diabetes mellitus type 2 insulin-dependent, hypertension, kidney stones, CA, gastritis Past Surgical History: Social History: quit smoking and alcohol, past history of consumption of cocaine and marijuana Family History: Noncontrast Review of Systems: Constitutional: no fever, chill, weight loss HEENT: no eye pain, no hearing loss, no oral lesion, no scleral icterus Heart: no chest pain, no chest pressure Lung: no cough, no dyspnea with exertion Abdomen: see HPI Physical exam: General: NAD, AAOX3 Chest: lung beckham clear to auscultation Heart: RRR, no murmur Abdomen: non-distended, no tenderness to palpation, +BS Labs: Labs Test 09/05/25 12:09 09/05/25 09:42 09/04/25 17:59 09/04/25 15:39 Range/Units POC Glucose 155 H 70-106 mg/dl Hemoglobin A1c 10.1 H <5.7 % A1C Troponin I High Sensitivity 10 </=34 ng/L Prothrombin Time 10.3 9.3-11.8 sec Prothrombin Time INR 0.97 0.9-1.15 Activated Partial Thromboplast Time 32.2 24.5-34.5 SEC Test 09/04/25 10:18 09/04/25 10:02 09/04/25 10:00 Range/Units Stool Occult Blood Negative Negative Stool Occult Blood Sample #3 Negative Urine Color Light-yellow Yellow Urine Clarity Clear Clear Urine pH 8.0 5.0-9.0 Urine Specific Harper 1.013 1.001-1.035 Urine Protein 3+ H Negative Urine Ketones Negative Negative Urine Blood 1+ H Negative /uL Urine Nitrite Negative Negative Urine Bilirubin Negative Negative Urine Urobilinogen Normal Negative mg/dL Urine Leukocyte Esterase Trace Negative /uL Urine RBC 4 0 - 4 /hpf Urine Microscopic WBC 35 H 0-5 /HPF Urine Squamous Epithelial Cells Few <5 /hpf Urine Bacteria None seen None Seen /hpf Urine Glucose 3+ H Normal mg/dL Urine Test Negative Negative Urine Opiates Screen Neg NEGATIVE Urine Fentanyl Screen Neg NEGATIVE Urine Barbiturates Screen Neg NEGATIVE Urine Phencyclidine Screen Neg NEGATIVE Urine Amphetamines Screen Neg NEGATIVE Urine Benzodiazepines Screen Neg NEGATIVE Urine Cocaine Screen Neg NEGATIVE Urine Cannabinoids Screen Neg NEGATIVE White Blood Count 7.8 4.4-10.8 10^3/uL Red Blood Count 3.87 L 4.0-5.20 10^6/uL Hemoglobin 11.1 L 12.2-16.2 g/dL Hematocrit 33.8 L 36.0-46.0 % Mean Corpuscular Volume 87.4 80.0-100.0 fL Mean Corpuscular Hemoglobin 28.7 28.0-32.0 pg Mean Corpuscular Hemoglobin Concent 32.8 32.0-36.0 g/dL Red Cell Distribution Width 16.5 H 11.8-14.3 % Platelet Count 491 H 140-450 10^3/uL Mean Platelet Volume 8.7 6.9-10.8 fL Neutrophils (%) (Auto) 62.8 37.0-80.0 % Lymphocytes (%) (Auto) 29.1 10.0-50.0 % Monocytes (%) (Auto) 4.9 0.0-12.0 % Eosinophils (%) (Auto) 1.9 0.0-7.0 % Basophils (%) (Auto) 1.3 0.0-2.0 % Neutrophils # (Auto) 4.9 1.6-8.6 10 ^3/uL Lymphocytes # (Auto) 2.3 0.4-5.4 10 ^3/uL Monocytes # (Auto) 0.4 0-1.3 10 ^3/uL Eosinophils # (Auto) 0.1 0-0.8 10 ^3/uL Basophils # (Auto) 0.1 0-0.2 10 ^3/uL Nucleated Red Blood Cells 0.1 % Sodium Level 140 136-145 mmol/L Potassium Level 4.2 3.5-5.1 mmol/L Chloride Level 108 H 98-107 mmol/L Carbon Dioxide Level 23 20-31 mmol/L Anion Gap 9 5-15 Blood Urea Nitrogen 21 9-23 mg/dL Creatinine 2.65 H 0.550-1.02 mg/dL Glomerular Filtration Rate Calc 21 >90 mL/min BUN/Creatinine Ratio 7.9 L 10.0-20.0 Serum Glucose 212 H 74-106 mg/dL Calcium Level 8.9 8.7-10.4 mg/dL Total Bilirubin 0.2 0.2-1.0 mg/dL Aspartate Amino Transferase (AST) 14 13-40 U/L Alanine Aminotransferase (ALT) 9 7-40 U/L Alkaline Phosphatase 94 46-116 U/L B-Type Natriuretic Peptide 182.35 0-100 pg/mL Total Protein 6.6 5.7-8.2 g/dL Albumin 3.7 3.2-4.8 g/dL Lipase 35 12-53 U/L Beta HCG, Quantitative 2.0 1.5-4.2 mIU/mL Microbiology Date/Time Source Procedure Growth Status 09/04/25 10:02 Voided Urine Urine Culture - Preliminary Resulted Imaging: CT abdomen pelvis IMPRESSION: 1. No acute abnormality within the abdomen or pelvis. 2. A 2 cm left adnexal cyst and a couple prominent nabothian cysts measuring up to 3.8 cm. Recommend further evaluation with pelvic ultrasound. 3. Coronary artery disease. Assessment: Abdominal pain History of gastritis Plan: -discussed with Dr. Hauser Protonix and Carafate GERD diet discussed Outpatient GI follow-up recommended for possible elective colonoscopy Thank you for this consult Date of Service: Sep 05, 2025 Billing Provider: ZEFERINO GARCIA Common Visit Codes: CONSULT ONLY Consultation Codes: [id number] CONSULT <60MIN ZEFERINO GARCIA Sep 05, 2025 13:36
[2025-09-05] MEDS: ALBUTEROL SULF 2.5 MG/0.5ML(0.5%) NEB SOLN NEB PRN (20:39)
[2025-09-05] MEDS: INSULIN LANTUS (GLARGINE) 1 /0.01ml (100units/ml) SC SCH (22:00)
[2025-09-06] VITALS (10 sets, daily range): BP systolic 108–159; BP diastolic 58–89; PULSE 67–80; RESP 12–19; TEMP 97.6–98.6; O2SAT 95–100
--- NOTE | 2025-09-06 01:24 | DVHSR ---
APPROVED REPORT EXAM: Two-dimensional and M-mode echocardiogram with Doppler and color Doppler. Blood Pressure: 115/69 mmHg INDICATION Chest Pain RISK FACTORS Height: 5'1, Weight: 169 DIMENSIONS LVDd 5.1 (3.8-5.7cm) LA (2D) 4.3 (1.9-4.0cm) Aortic Root 3.2 (2.0-3.7cm) LVDs 3.7 (2.5-4.0cm) LA (MM) (1.9-4.0cm) Aortic Cusp Exc 1.6 (1.5-2.0cm) EF (%) 55.0 (55-70%) Rt. Atrium 3.7 (1.9-4.0cm) Asc. Aorta 3.2 cm IVSd 1.1 (0.7-1.1cm) RV (D) 3.8 (1.8-2.4cm) PWd 0.9 (0.7-1.1cm) Mitral Valve Mitral Mitral Stenosis E wave 0.97m/s MV Mean GR. mmHg A wave 1.24m/s MV Peak GR. mmHg E/A ratio 0.8 2D MVA cm2 DECEL Time 225ms PRESS 1/2 Time ms Aortic Valve Aortic Valve Aortic Stenosis V1 0.89m/s AO Mean GR. 6mmHg V2 1.63m/s AO Peak GR. 10mmHg LVOT Diameter 2.0 (1.8-2.4cm) Doppler KEITH 1.71cm2 Pulmonic Valve V2 1.00m/s Conclusion LV EF IS 65% NORMAL VALVES NORMAL RV FUNCTION NO EFFUSION
[2025-09-06 06:23] LABS: Chloride 105 mmol/L (98-107); Potassium 4.3 mmol/L (3.5-5.1)
[2025-09-06 06:24] LABS: Anion Gap 9 (5-15); Carbon Dioxide 22 mmol/L (20-31)
[2025-09-06 06:30] LABS: BUN/Creatinine Ratio 8.8 (10.0-20.0)
[2025-09-06 06:37] LABS: Blood Urea Nitrogen 29 mg/dL (9-23); Calcium 8.4 mg/dL (8.7-10.4); Glucose 223 mg/dL (74-106); Sodium 136 mmol/L (136-145)
[2025-09-06] MEDS: PANTOPRAZOLE 40 MG TAB PO ONE (09:16)
[2025-09-06] MEDS: SUCRALFATE 1 GM/10 ML ORAL SUSP PO ONE (09:16)
[2025-09-06 09:19] LABS: Hematocrit 30.6 % (36.0-46.0); Hemoglobin 9.8 g/dL (12.2-16.2)
[2025-09-06] MEDS: GOLYTELY 4L KIT PO ONE (12:26)
[2025-09-06] MEDS: SODIUM CHLORIDE 0.9% 500 ML IV ONE ×2 (12:35→17:58)
--- NOTE | 2025-09-06 13:52 | DVHPN2 ---
Subjective Patient denies abdominal pain Now complaining of flank pain We will continues to have abdominal bloating No bowel movements since in hospital Changes from previous H/P or p: No Changes Objective Vitals Vital Signs Date Time Temp Pulse Resp B/P (MAP) Pulse Ox O2 Delivery O2 Flow Rate FiO2 09/06/25 10:17 68 136/78 09/06/25 08:50 98.0 18 98 98.0 09/06/25 08:00 Room Air* 0 21 Intake/Output Intake and Output 09/06/25 07:00 Intake Total 1548 ml Balance 1548 ml Intake Oral 1548 ml # Voids 7 Exam General: NAD, AAOX3 Chest: lung [place] clear to auscultation Heart: RRR, no murmur Abdomen: non-distended, no tenderness to palpation, +BS Medications Current Medications Medications Dose Ordered Sig/Mariel Route Start Time Stop Time Status Last Admin Dose Admin Ondansetron HCl 4 mg Q6HPRN PRN IV 09/04/25 15:00 Carvedilol 6.25 mg BID PO 09/04/25 22:00 09/06/25 09:17 6.25 MG Spironolactone 25 mg DAILY PO 09/04/25 16:00 09/06/25 09:17 25 MG Morphine Sulfate 1 mg Q2HP PRN IV 09/04/25 18:45 09/06/25 05:21 1 MG Polyethylene Glycol 17 gm DAILY PO 09/05/25 10:00 09/06/25 09:16 17 GM Insulin Glargine 15 units HS SC 09/05/25 22:00 Diagnostic Test (Pha) 1 strip Q6HR 09/05/25 12:00 09/06/25 12:26 1 STRIP Insulin Human Regular Q6HR SC 09/05/25 12:00 09/06/25 12:26 6 UNITS Dextrose 50 ml UD PRN IV 09/05/25 09:30 Amlodipine Besylate 5 mg DAILY PO 09/06/25 10:00 09/06/25 09:17 5 MG Pantoprazole Sodium 40 mg DAILY@0600 PO 09/07/25 06:00 Sucralfate 1 gm BID@0600,2200 PO 09/06/25 22:00 Ceftriaxone Sodium 50 ml @ 100 mls/hr DAILY@09 IV 09/07/25 09:00 Future Hold Ertapenem 1 gm/ Sodium Chloride 50 ml @ 100 mls/hr DAILY IV 09/07/25 10:00 Laboratory Results Laboratory Tests 09/04/25 10:00 09/06/25 05:39 Chemistry Test 09/06/25 05:39 Calcium Level 8.4 mg/dL (8.7-10.4) L Urinalysis Test 09/04/25 10:02 Urine Color Light-yellow (Yellow) Urine Clarity Clear (Clear) Urine pH 8.0 (5.0-9.0) Urine Specific [place] 1.013 (1.001-1.035) Urine Protein 3+ (Negative) H Urine Ketones Negative (Negative) Urine Blood 1+ /uL (Negative) H Urine Nitrite Negative (Negative) Urine Bilirubin Negative (Negative) Urine Urobilinogen Normal mg/dL (Negative) Urine Leukocyte Esterase Trace /uL (Negative) Urine RBC 4 /hpf (0 - 4) Urine Microscopic WBC 35 /HPF (0-5) H Urine Squamous Epithelial Cells Few /hpf (<5) Urine Bacteria None seen /hpf (None Seen) Urine Glucose 3+ mg/dL (Normal) H Urine Test Negative (Negative) Microbiology Microbiology Date/Time Source Procedure Growth Status 09/05/25 06:30 Nose MRSA Screen - Final Complete 09/04/25 10:02 Voided Urine Urine Culture - Final Escherichia coli Complete Assessment/Plan Assessment/Plan Abdominal pain History of gastritis Constipation Plan: -discussed with Dr. Hauser Symptomatic treatment recommended Patient is starting to take GoLYTELY at this time We will continue to monitor patient Plan discussed with: Patient Date of Service: Sep 06, 2025 Billing Provider: ZEFERINO GARCIA Common Visit Codes: [id number] INP/OBS CARE(HIGH) ZEFERINO GARCIA Sep 06, 2025 13:52
[2025-09-06] MEDS ORDERED: BLOO-169 XX (14:16)
[2025-09-06] MEDS ORDERED: ATOR-507 PO (14:16)
[2025-09-06] MEDS ORDERED: PANT40TA2 PO (14:16)
[2025-09-06] MEDS ORDERED: NITR-52 PO (14:16)
[2025-09-06] MEDS ORDERED: LANC-347 XX (14:16)
[2025-09-06] MEDS ORDERED: INSU100I70 SC (14:16)
[2025-09-06] MEDS ORDERED: GLUC-224 VI (14:16)
[2025-09-06] MEDS ORDERED: SPIR25TA8 PO (14:16)
[2025-09-06] MEDS ORDERED: ASPI81CH59 PO (14:16)
[2025-09-06] MEDS ORDERED: AML5T PO (14:16)
[2025-09-06] MEDS ORDERED: CARV6.2551 PO (14:16)
[2025-09-06] MEDS ORDERED: ISOP70MI4 EX (14:16)
[2025-09-06] MEDS ORDERED: GABA-1308 PO (14:16)
[2025-09-06] MEDS ORDERED: METO5TAB2 PO (14:16)
[2025-09-06] MEDS ORDERED: INSU100I54 SC (14:16)
--- NOTE | 2025-09-06 14:38 | DVHPNRES ---
Progress Note Date Seen: Sep 06, 2025 Resident Creating Document: JHBeccaJHAYLEE Mckee RESIDENT Medical Necessity Reason Pt with a Central, PICC or Fol: No Subjective Review of Systems Patient seen and examined at the bedside Reports of diffuse abdominal pain, dysuria Denies any fever, chills No other acute complaints Objective vital signs Vital Sign Date Time Temp Pulse Resp B/P (MAP) Pulse Ox O2 Delivery O2 Flow Rate FiO2 09/06/25 10:17 68 136/78 09/06/25 08:50 98.0 18 98 98.0 09/06/25 08:00 Room Air* 0 21 Total Intake and Output 09/05/25 09/05/25 09/06/25 15:00 23:00 07:00 Intake Total 518 ml 630 ml 400 ml Balance 518 ml 630 ml 400 ml medications Current Medications Medications Dose Ordered Sig/Mariel Route Start Time Stop Time Status Last Admin Dose Admin Ondansetron HCl 4 mg Q6HPRN PRN IV 09/04/25 15:00 Carvedilol 6.25 mg BID PO 09/04/25 22:00 09/06/25 09:17 6.25 MG Spironolactone 25 mg DAILY PO 09/04/25 16:00 09/06/25 09:17 25 MG Morphine Sulfate 1 mg Q2HP PRN IV 09/04/25 18:45 09/06/25 05:21 1 MG Polyethylene Glycol 17 gm DAILY PO 09/05/25 10:00 09/06/25 09:16 17 GM Diagnostic Test (Pha) 1 strip Q6HR 09/05/25 12:00 09/06/25 12:26 1 STRIP Insulin Human Regular Q6HR SC 09/05/25 12:00 09/06/25 12:26 6 UNITS Dextrose 50 ml UD PRN IV 09/05/25 09:30 Amlodipine Besylate 5 mg DAILY PO 09/06/25 10:00 09/06/25 09:17 5 MG Pantoprazole Sodium 40 mg DAILY@0600 PO 09/07/25 06:00 Sucralfate 1 gm BID@0600,2200 PO 09/06/25 22:00 Ertapenem 1 gm/ Sodium Chloride 50 ml @ 100 mls/hr DAILY IV 09/07/25 10:00 Insulin Glargine 18 units HS SC 09/06/25 22:00 UNV Metoclopramide HCl 5 mg Q12HR PO 09/06/25 22:00 UNV Examination Skin - Patients skin is warm and dry. HEENT - normocephalic, atraumatic, moist mucous membranes, no conjunctival pallor, no scleral icterus. Neck - full ROM, no LAD, no JVD Pulmonary - B/L clear breath sounds without any wheezing or rales cardiovascular - regular S1,S2 heard, no added sounds, no murmurs heard. GI - soft abdomen with mild tenderness to palpation around the umbilicus. no hepatospleenomegaly. Bowel sounds normoactive Neurological - Patient is A/O X 4 . Bilateral upper extremity strength 5/5, bilateral lower extremity strength 5/5, no facial droop, normal speech, no tremor, decreased sensation in the bilateral feet laboratory and microbiology Laboratory Tests 09/06/25 05:39 09/04/25 10:00 Test 09/06/25 05:39 Range/Units Serum Glucose 223 H 74-106 mg/dL Microbiology Date/Time Source Procedure Growth Status 09/05/25 06:30 Nose MRSA Screen - Final Complete 09/04/25 10:02 Voided Urine Urine Culture - Final Escherichia coli Complete Problem List/Assessment/Plan Problem List/Assessment/Plan Acute intractable abdominal pain Acute on chronic gastritis with a poor oral intake Dyspepsia Severe constipation likely due to possible gastroparesis from uncontrolled diabetes - GI consulted, recommended conservative management Protonix and Carafate - bowel regimen, MiraLax, GoLYTELY - metoclopramide 5 mg b.i.d. Hypertensive crisis Hypertensive heart disease with heart failure, uncontrolled Chronic HFpEF, EF 60% with grade 1 diastolic dysfunction - on carvedilol, spironolactone, amlodipine - Lasix and Jardiance held ERIK on CKD likely prerenal due to VMN UTI, probable pyelonephritis - Monitor kidney function - IV fluids - IV antibiotics ertapenem ( since patient is allergic to ceftriaxone and levofloxacin) uncontrolled Type 2 diabetes mellitus, with hyperglycemia - HbA1c 10.1 - insulin Lantus and sliding scale - consistent carbohydrate diet Incidental 2 cm left adnexal cyst and a couple prominent nabothian cysts measuring up to 3.8 cm Nabothian cysts -outpatient follow up with PCP Goals of care discussed with the patient for over 18 minutes. Full code Time spent: 33 minutes Plan discussed with Dr Rasheed Plan discussed with: Patient, Other (RN Dorita) My Orders My Orders Orders - HAYLEE CHEN Procedure Category Date Status Time Amlodipine Tablet PHA 09/06/25 In Process (Norvasc Tablet) 10:00 Pantoprazole Tablet PHA 09/07/25 In Process (Protonix Tablet) 06:00 Sucralfate Susp PHA 09/06/25 In Process (Carafate Susp) 22:00 Sodium Chloride 0.9% PHA 09/06/25 In Process 13:00 Ertapenem Sod Inj PHA 09/07/25 In Process (Invanz) 10:00 Insulin Lantus PHA 09/06/25 Logged (Glargine) (Lantus) 22:00 Metoclopramide Tablet PHA 09/06/25 Logged (Reglan Tablet) 22:00 Visit Coding STANDARD RES Billing Provider: MARK RASHEED MD Date of Service if different f: Sep 06, 2025 Common Visit Codes: [id number] INP/OBS CARE(HIGH) HAYLEE CHEN RESIDENT Sep 06, 2025 14:38
[2025-09-06] MEDS: ERTAPENEM SOD INJ 1 GM in SODIUM CHL 0.9% 50 ML IV ONE (17:58)
[2025-09-06] MEDS: ACETAMINOPHEN 325 MG TAB PO PRN (20:40)
[2025-09-06] MEDS: SUCRALFATE 1 GM/10 ML ORAL SUSP PO SCH (21:27)
[2025-09-06] MEDS: METOCLOPRAMIDE HCL 10 MG TAB PO SCH (21:28)
[2025-09-06] MEDS: INSULIN LANTUS (GLARGINE) 1 /0.01ml (100units/ml) SC SCH (22:00)
[2025-09-07] VITALS (8 sets, daily range): BP systolic 131–165; BP diastolic 65–94; PULSE 65–99; RESP 16–20; TEMP 96.7–98.7; O2SAT 95–99
[2025-09-07] MEDS: PANTOPRAZOLE 40 MG TAB PO SCH (05:32)
[2025-09-07 07:09] LABS: Hematocrit 26.7 % (36.0-46.0); Hemoglobin 8.9 g/dL (12.2-16.2)
[2025-09-07 07:21] LABS: Anion Gap 10 (5-15); Carbon Dioxide 21 mmol/L (20-31); Potassium 4.2 mmol/L (3.5-5.1); Sodium 139 mmol/L (136-145)
[2025-09-07 07:27] LABS: BUN/Creatinine Ratio 8.3 (10.0-20.0)
[2025-09-07 07:29] LABS: Blood Urea Nitrogen 26 mg/dL (9-23); Calcium 8.2 mg/dL (8.7-10.4); Chloride 108 mmol/L (98-107); Glucose 165 mg/dL (74-106)
[2025-09-07] MEDS: ERTAPENEM SOD INJ 1 GM in SODIUM CHL 0.9% 50 ML IV SCH (09:26)
--- NOTE | 2025-09-07 10:45 | DVHPN2 ---
Progress Note Date Seen: Sep 07, 2025 Resident Creating Document: ZABRINA VELASQUEZ RESIDENT Medical Necessity Reason Pt with a Central, PICC or Fol: No Subjective Review of Systems One bowel movement today. Abdomen hypoactive. Patient on MiraLax and GoLYTELY Objective vital signs Vital Sign Date Time Temp Pulse Resp B/P (MAP) Pulse Ox O2 Delivery O2 Flow Rate FiO2 09/07/25 09:40 71 16 165/79 (107) 09/07/25 09:00 96.7 99 96.7 09/07/25 08:00 Room Air* 0 21 Total Intake and Output 09/06/25 09/06/25 09/07/25 15:00 23:00 07:00 Intake Total 476 ml 1850 ml 650 ml Output Total 500 ml Balance 476 ml 1850 ml 150 ml medications Current Medications Medications Dose Ordered Sig/Mariel Route Start Time Stop Time Status Last Admin Dose Admin Ondansetron HCl 4 mg Q6HPRN PRN IV 09/04/25 15:00 Carvedilol 6.25 mg BID PO 09/04/25 22:00 09/07/25 08:22 6.25 MG Spironolactone 25 mg DAILY PO 09/04/25 16:00 09/07/25 09:23 25 MG Morphine Sulfate 1 mg Q2HP PRN IV 09/04/25 18:45 09/06/25 05:21 1 MG Polyethylene Glycol 17 gm DAILY PO 09/05/25 10:00 09/07/25 09:22 17 GM Diagnostic Test (Pha) 1 strip Q6HR 09/05/25 12:00 09/07/25 05:32 1 STRIP Insulin Human Regular Q6HR SC 09/05/25 12:00 09/06/25 12:26 6 UNITS Dextrose 50 ml UD PRN IV 09/05/25 09:30 Amlodipine Besylate 5 mg DAILY PO 09/06/25 10:00 09/07/25 08:22 5 MG Pantoprazole Sodium 40 mg DAILY@0600 PO 09/07/25 06:00 09/07/25 05:32 40 MG Sucralfate 1 gm BID@0600,2200 PO 09/06/25 22:00 09/07/25 05:32 1 GM Ertapenem 1 gm/ Sodium Chloride 50 ml @ 100 mls/hr DAILY IV 09/07/25 10:00 09/07/25 09:26 100 MLS/HR Insulin Glargine 18 units HS SC 09/06/25 22:00 Metoclopramide HCl 5 mg Q12HR PO 09/06/25 22:00 09/07/25 09:24 5 MG Acetaminophen 650 mg Q6HP PRN PO 09/06/25 20:00 09/07/25 02:16 650 MG Examination Obese female patient lying in bed, in no acute distress General: Obese, afebrile, palor, mucosae are moist Cardiovascular: Regular S1 and S2. No murmurs, gallops or rubs. No JVD elevation. No pedal edema Respiratory: Normal B/L air entry on room air. Clear lung sounds on auscultation Abdomen: Soft, hypoactive, nontender, nondistended, hypoactive bowel sounds, no rebound tenderness, no organomegaly, no masses Genitourinary: Deferred laboratory and microbiology Laboratory Tests 09/07/25 04:57 09/04/25 10:00 Test 09/07/25 04:57 Range/Units Serum Glucose 165 H 74-106 mg/dL Microbiology Date/Time Source Procedure Growth Status 09/05/25 06:30 Nose MRSA Screen - Final Complete 09/04/25 10:02 Voided Urine Urine Culture - Final Escherichia coli Complete Labs and/or images reviewed: Labs reviewed by me, Image(s) reviewed by me Problem List/Assessment/Plan Problem List/Assessment/Plan Slow transit constipation Abdominal pain secondary to above History of gastritis Anemia normocytic ERIK on CKD E coli UTI Plan: Recommendation: Dr. Hauser Continue MiraLax g daily, GoLYTELY as scheduled Patient has a BM this morning Continue conservative management, stool over negative Added Metamucil daily Recommend methylnaltrexone on discharge Plan discussed with patient in which all questions have been answered Case discussed with Dr. Hauser Plan discussed with: Patient ZABRINA VELASQUEZ RESIDENT Sep 07, 2025 10:45
[2025-09-07] MEDS: PSYLLIUM PWD 5.8GM PKG PO ONE (11:07)
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
[2025-09-08 01:00] VITALS: BP 145/71; PULSE 72; RESP 18; TEMP 97.2; O2SAT 97
[2025-09-08 05:00] VITALS: BP 120/63; PULSE 67; RESP 18; TEMP 97.1; O2SAT 96
[2025-09-08 06:30] LABS: Hematocrit 26.5 % (36.0-46.0); Hemoglobin 8.6 g/dL (12.2-16.2); Mean Corpuscular Hemoglobin 28.5 pg (28.0-32.0); Mean Corpuscular Volume 87.5 fL (80.0-100.0); Nucleated Red Blood Cells % 0.1 %
[2025-09-08 06:40] LABS: Anion Gap 9 (5-15); Carbon Dioxide 23 mmol/L (20-31); Potassium 4.8 mmol/L (3.5-5.1); Sodium 140 mmol/L (136-145)
[2025-09-08 06:41] LABS: Chloride 108 mmol/L (98-107)
[2025-09-08 06:43] LABS: Calcium 8.5 mg/dL (8.7-10.4)
[2025-09-08 06:46] LABS: BUN/Creatinine Ratio 9.2 (10.0-20.0)
[2025-09-08 06:47] LABS: Blood Urea Nitrogen 26 mg/dL (9-23); Glucose 113 mg/dL (74-106)
[2025-09-08 09:00] VITALS: BP 152/89; PULSE 67; RESP 17; TEMP 97.1; O2SAT 98
[2025-09-08] MEDS: PSYLLIUM PWD 5.8GM PKG PO SCH (09:33)
[2025-09-08] MEDS: ERTAPENEM SOD INJ 0.5 GM in SODIUM CHL 0.9% 50 ML IV SCH (09:39)
[2025-09-08 12:18] VITALS: BP 139/65; PULSE 68; RESP 18; TEMP 96.3; O2SAT 97
[2025-09-08] MEDS ORDERED: SENN8.6C PO (13:22)
[2025-09-08] MEDS ORDERED: POLY33505 PO (13:22)
[2025-09-08] MEDS ORDERED: BACL5TAB2 PO (13:27)
--- NOTE | 2025-09-08 15:37 | DVHDSRES ---
Discharge Summary Date of Admission Resident Creating Document: HAYLEE CHEN RESIDENT Sep 04, 2025 at 13:58 Date of Discharge: Sep 08, 2025 Admitting Diagnosis # Intractable abdominal pain # dysphagia # upper GI bleed likely due to peptic ulcer disease, other causes not ruled out yet # A 2 cm left adnexal cyst and a couple prominent nabothian cysts measuring up to 3.8 cm # hypertensive crisis due to noncompliance of medication # ?history of coronary artery disease,? previous NH, no PCI # CKD # history of kidney stones Wounds: none Labs/Diagnostic Data: Laboratory Results Test 09/08/25 11:07 09/08/25 10:22 09/08/25 06:07 09/08/25 06:04 POC Glucose 145 mg/dl (70-106) Stool Occult Blood Negative (Negative) Stool Occult Blood Sample #3 (Negative) White Blood Count 7.0 10^3/uL (4.4-10.8) Red Blood Count 3.03 10^6/uL (4.0-5.20) Hemoglobin 8.6 g/dL (12.2-16.2) Hematocrit 26.5 % (36.0-46.0) Mean Corpuscular Volume 87.5 fL (80.0-100.0) Mean Corpuscular Hemoglobin 28.5 pg (28.0-32.0) Mean Corpuscular Hemoglobin Concent 32.5 g/dL (32.0-36.0) Red Cell Distribution Width 16.1 % (11.8-14.3) Platelet Count 367 10^3/uL (140-450) Mean Platelet Volume 8.7 fL (6.9-10.8) Neutrophils (%) (Auto) 59.1 % (37.0-80.0) Lymphocytes (%) (Auto) 28.8 % (10.0-50.0) Monocytes (%) (Auto) 7.6 % (0.0-12.0) Eosinophils (%) (Auto) 3.7 % (0.0-7.0) Basophils (%) (Auto) 0.8 % (0.0-2.0) Neutrophils # (Auto) 4.1 10 ^3/uL (1.6-8.6) Lymphocytes # (Auto) 2.0 10 ^3/uL (0.4-5.4) Monocytes # (Auto) 0.5 10 ^3/uL (0-1.3) Eosinophils # (Auto) 0.3 10 ^3/uL (0-0.8) Basophils # (Auto) 0.1 10 ^3/uL (0-0.2) Nucleated Red Blood Cells 0.1 % Reticulocyte Count (auto) 1.42 % (0.5-1.5) Sodium Level 140 mmol/L (136-145) Potassium Level 4.8 mmol/L (3.5-5.1) Chloride Level 108 mmol/L (98-107) Carbon Dioxide Level 23 mmol/L (20-31) Anion Gap 9 (5-15) Blood Urea Nitrogen 26 mg/dL (9-23) Creatinine 2.84 mg/dL (0.550-1.02) Glomerular Filtration Rate Calc 20 mL/min (>90) BUN/Creatinine Ratio 9.2 (10.0-20.0) Serum Glucose 113 mg/dL (74-106) Calcium Level 8.5 mg/dL (8.7-10.4) Lactate Dehydrogenase 186 U/L (120-246) Test 09/05/25 09:42 09/04/25 17:59 09/04/25 15:39 09/04/25 10:02 Hemoglobin A1c 10.1 % A1C (<5.7) Troponin I High Sensitivity 10 ng/L (</=34) Prothrombin Time 10.3 sec (9.3-11.8) Prothrombin Time INR 0.97 (0.9-1.15) Activated Partial Thromboplast Time 32.2 SEC (24.5-34.5) Urine Color Light-yellow (Yellow) Urine Clarity Clear (Clear) Urine pH 8.0 (5.0-9.0) Urine Specific [place] 1.013 (1.001-1.035) Urine Protein 3+ (Negative) Urine Ketones Negative (Negative) Urine Blood 1+ /uL (Negative) Urine Nitrite Negative (Negative) Urine Bilirubin Negative (Negative) Urine Urobilinogen Normal mg/dL (Negative) Urine Leukocyte Esterase Trace /uL (Negative) Urine RBC 4 /hpf (0 - 4) Urine Microscopic WBC 35 /HPF (0-5) Urine Squamous Epithelial Cells Few /hpf (<5) Urine Bacteria None seen /hpf (None Seen) Urine Glucose 3+ mg/dL (Normal) Urine Test Negative (Negative) Urine Opiates Screen Neg (NEGATIVE) Urine Fentanyl Screen Neg (NEGATIVE) Urine Barbiturates Screen Neg (NEGATIVE) Urine Phencyclidine Screen Neg (NEGATIVE) Urine Amphetamines Screen Neg (NEGATIVE) Urine Benzodiazepines Screen Neg (NEGATIVE) Urine Cocaine Screen Neg (NEGATIVE) Urine Cannabinoids Screen Neg (NEGATIVE) Test 09/04/25 10:00 Total Bilirubin 0.2 mg/dL (0.2-1.0) Aspartate Amino Transferase (AST) 14 U/L (13-40) Alanine Aminotransferase (ALT) 9 U/L (7-40) Alkaline Phosphatase 94 U/L (46-116) B-Type Natriuretic Peptide 182.35 pg/mL (0-100) Total Protein 6.6 g/dL (5.7-8.2) Albumin 3.7 g/dL (3.2-4.8) Lipase 35 U/L (12-53) Beta HCG, Quantitative 2.0 mIU/mL (1.5-4.2) Other Laboratory Tests 09/08/25 06:07 Brief Hx & Hospital Course: Patient is a 49-year-old female with a medical history of CKD, insulin-dependent type 2 diabetes mellitus, hypertensive heart disease, kidney stones, gastritis presented to the ED with a chief complaint of black/dark colored stools and epigastric pain with a burning sensation. Patient also reported having burning pain on micturition with increased frequency. Initial urinalysis did show a a UTI, urine culture showed growth of E coli sensitive to multiple drugs. Since the patient was complaining of epigastric pain CT abdomen pelvis was done initially which did not show any acute intracranial abnormality, 2 cm left adnexal cyst and a couple prominent nabothian cysts measuring up to 3.8 cm were seen following which a pelvic ultrasound was done which showed Small left ovarian cyst measuring 2.8 cm, Large cystic structures within the cervix that may represent nabothian cysts which were also seen on CT abdomen pelvis done in 2021. Patient did report of constipation likely due to diabetic gastroparesis following which she was started on a bowel regimen. Stool occult blood was negative. Hemoglobin was low likely because of chronic kidney disease. Patient was started back on her insulin regimen with Lantus and sliding scale. Discharge plan: Patient discharged in stable condition to home advised to follow up with the PCP and would need referral to OBGYN for further management of possible nabothian cyst in the cervix. Advised to strictly other it to the insulin Lantus and lispro regimen and strictly compliant with low-carbohydrate diet. For UTI: Nitrofurantoin 100 mg b.i.d. for 10 days Continued on carvedilol, amlodipine, spironolactone, follow up with the primary care Chronic kidney disease: Patient advised to follow up with the towel sorter Time spent on discharge planning more than 31 minutes Consults/Reason for consult GI consultation for evaluation for questionable melena, dysphagia Operations or Procedures none Condition at Discharge: Good Final Diagnosis/Problems List Acute intractable abdominal pain Acute on chronic gastritis with a poor oral intake Dyspepsia Severe constipation likely due to possible gastroparesis from uncontrolled diabetes Hypertensive crisis Hypertensive heart disease with heart failure, uncontrolled Chronic HFpEF, EF 60% with grade 1 diastolic dysfunction ERIK on CKD likely prerenal due to VMN UTI, probable pyelonephritis uncontrolled Type 2 diabetes mellitus, with hyperglycemia Incidental 2 cm left adnexal cyst and a couple prominent nabothian cysts measuring up to 3.8 cm Discharge Disposition: Home Discharge Instruct/Medications Diet: See Comment Diet comment: high fiber diet, drinl plenty of water diet low in red meat, cheese to avoid constipation Activity: No Restrictions, As Tolerated Follow Up/Referral: F/up in d/c clinic in one week F/up with the PCP in one week Medications: as per EMR Scheduled Amlodipine Besylate (Norvasc Tablet), 1 TAB PO DAILY Aspirin (Aspirin Low Dose), 1 TAB PO DAILY Atorvastatin Calcium (Lipitor), 1 TAB PO HS Carvedilol (Carvedilol), 1 TAB PO BID Gabapentin (Gabapentin), 400 MG PO BID Glucose Blood (Easy Touch Glucose Test S), 1 EA BID Insulin Glargine-Yfgn (Insulin Glargine), 20 UNIT SC HS Insulin Lispro (Insulin Lispro Kwikpen), 6 UNIT SC TID Isopropyl Alcohol (Alcohol Wipes), 70 % EX BID Metoclopramide Hcl (Metoclopramide Hcl), 1 TAB PO DAILY Naloxone HCl (Narcan), 4 MG NA [employer] Nitrofurantoin (Nitrofurantoin), 100 MG PO BID Pantoprazole Sodium Sesquihydr (Protonix), 1 TAB PO DAILY@6AM Polyethylene Glycol (Miralax), 17 GM PO DAILY Sennosides (Senna), 17.2 MG PO HS Spironolactone (Spironolactone), 1 TAB PO DAILY Scheduled PRN Albuterol Sulfate (Ventolin Mdi), 90 MCG IN TID PRN Baclofen (Baclofen), 5 MG PO BID PRN Hydrocodone-Acetaminophen (Hydrocodone Bitartrate/AC 5-325 mg), 1 TAB PO Q8HP PRN Discontinued Medications Amlodipine Besylate (Amlodipine Besylate), 1 TAB PO DAILY Amoxicillin & Pot Clavulanate (Amoxicillin/Potassium Cla), 1 TAB PO BID Empagliflozin (Jardiance), 1 TAB PO DAILY Ferrous Sulfate (Ferrous Sulfate), 325 MG PO DAILY Furosemide (Furosemide), 1 TAB PO DAILY, (Reported) Insulin Glargine (Lantus Solostar), 24 UNIT SC QAM Insulin Lispro (Humalog Kwikpen), 10 UNIT SC TID Metformin Hydrochloride (Metformin Hcl), 1 TAB PO BID, (Reported) Metoprolol Succinate (Metoprolol Succinate Er), 1 TAB PO DAILY, (Reported) Durable Medical Equipment Blood Glucose Monitoring Suppl (Easy Touch Glucose Monito), EA XX BID, (DME) Lancets (Freestyle Lancets), EA XX BID, (DME) Discharge Statement: "Patient was advised to return to the ER or call 911 if any headaches, dizziness, shortness of breath, chest pain, abdominal pain, bleeding, fevers, or worsening of medical condition. Patient was counseled about treatment plan, medications, possible side effects, patientverbalized understanding. All questions were answered to the best of my ability. This discharge took greater then 30 minutes in planning, reviewing documentation, counseling the patient, and discussing with other team members." ASSESSMENT ASSESSMENT Assessment Acute intractable abdominal pain Acute on chronic gastritis with a poor oral intake Dyspepsia Severe constipation likely due to possible gastroparesis from uncontrolled diabetes Hypertensive crisis Hypertensive heart disease with heart failure, uncontrolled Chronic HFpEF, EF 60% with grade 1 diastolic dysfunction ERIK on CKD likely prerenal due to VMN UTI, probable pyelonephritis uncontrolled Type 2 diabetes mellitus, with hyperglycemia Incidental 2 cm left adnexal cyst and a couple prominent nabothian cysts measuring up to 3.8 cm Visit Coding STANDARD RES Billing Provider: NIKKIE RUTHERFORD MD Date of Service if different f: Sep 08, 2025 Common Visit Codes: 05596-YXC/OBS DISCH DAY >30min HAYLEE CHEN RESIDENT Sep 08, 2025 15:37 NIKKIE RUTHERFORD MD Sep 08, 2025 19:35
--- NOTE | 2025-09-08 18:51 | DVHPN2 ---
Progress Note - Dictate Date Seen: Sep 08, 2025 (Late entryPatient seen at 10:00 a.m.) Medical Necessity Reason Pt with a Central, PICC or Fol: No Subjective No new complaints, patient has had three bowel movements Patient had drank about half of her GoLYTELY Patient is tolerating diet She denies any nausea vomiting Hemoglobin stable at 8.6, stool for occult blood negative stool for WBC negative vital signs Vital Sign Date Time Temp Pulse Resp B/P (MAP) Pulse Ox O2 Delivery O2 Flow Rate FiO2 09/08/25 12:18 96.3 68 18 139/65 (89) 97 96.3 09/08/25 08:00 Room Air* 0 21 Total Intake and Output 09/07/25 09/07/25 09/08/25 15:00 23:00 07:00 Intake Total 1300 ml 1124 ml Balance 1300 ml 1124 ml objective General: Obese, afebrile, palor, mucosae are moist Cardiovascular: Regular S1 and S2. No murmurs, gallops or rubs. No JVD elevation. No pedal edema Respiratory: Normal B/L air entry on room air. Clear lung sounds on auscultation Abdomen: Soft, hypoactive, nontender, nondistended, hypoactive bowel sounds, no rebound tenderness, no organomegaly, no masses laboratory and microbiology Laboratory Tests 09/08/25 06:07 Test 09/08/25 06:07 Range/Units Serum Glucose 113 H 74-106 mg/dL Problems(with codes): (1) Intractable abdominal pain (2) Constipation due to pain medication (3) Normocytic anemia Prognosis Plan Discharge planning is in progress Patient can be maintained on stool softeners and lactulose If required Movantik 12.5 mg p.o. daily to be considered for narcotic induced constipation Outpatient follow up with me in 2-4 weeks to discuss outpatient elective screening colonoscopy Once again thank you for allowing me to participate in the care of this patient Plan discussed with: Patient ELEUTERIO JUAREZ MD Sep 08, 2025 18:51
== END 2025-09-08 14:15 | disposition home or self-care (01) | DRG 241 ==
LOC: ER 09:16 → OVERFLOW 13:58 → TELE-CENTR 09-05 02:28 → CENTRAL 09-05 20:40
PROVIDERS: ADMIT Student in an Organized Health Care Education/Training Program; ATTEND Internal Medicine
DX: K29.01 Acute gastritis with bleeding (principal); N17.0 Acute kidney failure with tubular necrosis; I16.9 Hypertensive crisis, unspecified; I50.32 Chronic diastolic (congestive) heart failure; I13.0 Hypertensive heart and chronic kidney disease with heart failure and stage 1 through stage 4 chronic kidney disease, or unspecified chronic kidney disease; D64.9 Anemia, unspecified; E11.22 Type 2 diabetes mellitus with diabetic chronic kidney disease; R13.10 Dysphagia, unspecified; K29.51 Unspecified chronic gastritis with bleeding; N12 Tubulo-interstitial nephritis, not specified as acute or chronic; N18.9 Chronic kidney disease, unspecified; E11.43 Type 2 diabetes mellitus with diabetic autonomic (poly)neuropathy; E11.65 Type 2 diabetes mellitus with hyperglycemia; K31.84 Gastroparesis; I25.10 Atherosclerotic heart disease of native coronary artery without angina pectoris; F17.210 Nicotine dependence, cigarettes, uncomplicated; K59.00 Constipation, unspecified; Z79.4 Long term (current) use of insulin; Z87.442 Personal history of urinary calculi
CPT/HCPCS: 36415; 71045; 74176; 76830; 76856; 80048; 80053; 80307; 81001; 81025; 82088; 82270; 82962; 83036; 83615; 83690; 83880; 84244; 84484; 84702; 85014; 85018; 85025; 85045; 85610; 85730; 87081; 87086; 87088; 87186; 93306; 94640; G0378; J1335; J1815; J2405; J2470